=== PATIENT | male | born 1960 | race Hispanic/Latino ===

== ENCOUNTER 2017-04-24 08:39 | Inpatient (IN) | payer BC ==
[~2017-04-24] VITALS: Ht 157.5 cm; Wt 72.6 kg
[2017-04-24] MEDS ORDERED: SODIUM CHLORIDE 0.9% 1000ML 1,000 ML IV ONE (09:08)
[2017-04-24 09:30] LABS: BASOPHILS % (AUTO) 0.3 % (0.0-5.0); EOSINOPHILS % (AUTO) 0.1 % (0.0-8.0); HEMATOCRIT 37.2 % (42-54); LYMPHOCYTES % (AUTO) 13.8 % (21.0-51.0); MEAN CORPUSCULAR HEMOGLOBIN 31.1 pg (27.0-33.0); MEAN CORPUSCULAR HGB CONC 34.2 g/dL (32.0-36.0); MEAN CORPUSCULAR VOLUME 90.7 fL (79-99); MONOCYTES % (AUTO) 12.6 % (3.0-13.0); NEUTROPHILS % (AUTO) 73.2 % (40.0-77.0); PLATELET COUNT (AUTO) 407 K/uL (130-400); RED CELL DISTRIBUTION WIDTH 12.1 % (11.0-15.5); WHITE BLOOD COUNT (AUTO) 8.4 K/uL (4.8-10.8)
[2017-04-24] MEDS ORDERED: ONDANSETRON HCL 4 MG/2 ML VIAL ONE (09:32)
[2017-04-24] MEDS ORDERED: MORPHINE SULFATE 4 MG/1ML SYG ONE (09:33)
[2017-04-24 09:40] LABS: CREATININE 1.5 mg/dL (0.5-1.5); POTASSIUM 4.3 mmol/L (3.5-5.1)
[2017-04-24 09:44] LABS: ALBUMIN 2.8 g/dL (3.5-5.0); BILIRUBIN,TOTAL 0.6 mg/dL (0.2-1.0); TOTAL PROTEIN, SERUM 8.3 g/dL (6.0-8.3)
[2017-04-24] MEDS ORDERED: CLINDAMYCIN 600 MG/D5% WATER 50 ML IV ONE (09:47)
[2017-04-24 09:48] LABS: INR 1.09 (0.85-1.15); PARTIAL THROMBOPLASTIN TIME 28.9 SEC (26.3-35.5); PROTHROMBIN TIME 11.4 SEC (9.6-11.6)
[2017-04-24 09:53] LABS: CRP QUANTITATIVE 208.4 mg/L (0.00-9.0)
[2017-04-24] MEDS ORDERED: VANCOMYCIN 1GM+NS 250ML 250 ML IV ONE (13:49)
[2017-04-24] MEDS ORDERED: GUAIFENESIN-DM 200/20 MG 10 ML PO PRN (15:30)
[2017-04-24] MEDS: CLINDAMYCIN 600 MG/D5% WATER 50 ML IV SCH ×2 (15:30→23:24)
[2017-04-24] MEDS ORDERED: MORPHINE SULFATE 4 MG/1ML SYG IV PRN (15:30)
[2017-04-24] MEDS ORDERED: ZOLPIDEM TARTRATE 5 MG TAB PO PRN (15:30)
[2017-04-24] MEDS ORDERED: ONDANSETRON HCL 4 MG/2 ML VIAL IV PRN (15:30)
[2017-04-24] MEDS ORDERED: HYDRALAZINE HCL 20 MG/ML VIAL IV PRN (15:30)
[2017-04-24 17:02] VITALS: BP 142/94
[2017-04-24] MEDS ORDERED: METF500T6 PO (17:26)
[2017-04-24] MEDS: ACETAMINOPHEN 325 MG TAB PO PRN (17:37)
[2017-04-24 20:11] VITALS: BP 113/61
[2017-04-24] MEDS: FAMOTIDINE 20MG TAB 20 MG TAB PO SCH (20:58)
[2017-04-24] MEDS: INSULIN HUMULIN R 100 UNIT/ML 3ML SQ SCH (21:01)
[2017-04-24] MEDS: SODIUM CHLORIDE 0.9% 1000ML 1,000 ML IV SCH (23:24)
[2017-04-25 00:17] VITALS: BP 120/59
[2017-04-25 04:00] VITALS: BP 146/73
[2017-04-25] MEDS: ACETAMINOPHEN 325 MG TAB PO PRN ×2 (04:13→17:45)
[2017-04-25 05:48] LABS: BASOPHILS % (AUTO) 0.4 % (0.0-5.0); EOSINOPHILS % (AUTO) 0.3 % (0.0-8.0); HEMATOCRIT 35.7 % (42-54); LYMPHOCYTES % (AUTO) 12.3 % (21.0-51.0); MEAN CORPUSCULAR HEMOGLOBIN 31.3 pg (27.0-33.0); MEAN CORPUSCULAR HGB CONC 34.5 g/dL (32.0-36.0); MEAN CORPUSCULAR VOLUME 90.9 fL (79-99); MONOCYTES % (AUTO) 9.3 % (3.0-13.0); NEUTROPHILS % (AUTO) 77.7 % (40.0-77.0); PLATELET COUNT (AUTO) 383 K/uL (130-400); RED BLOOD CELL COUNT(AUTO) 3.93 MIL/uL (4.50-6.20); WHITE BLOOD COUNT (AUTO) 9.9 K/uL (4.8-10.8)
[2017-04-25 05:57] LABS: CREATININE 1.3 mg/dL (0.5-1.5); MAGNESIUM 1.8 mg/dL (1.80-2.40); PHOSPHORUS 3.5 mg/dL (2.5-4.9)
[2017-04-25] MEDS: INSULIN HUMULIN R 100 UNIT/ML 3ML SQ SCH ×4 (06:13→21:00)
[2017-04-25] MEDS: CLINDAMYCIN 600 MG/D5% WATER 50 ML IV SCH ×2 (06:49→14:42)
[2017-04-25 07:40] VITALS: BP 108/56
[2017-04-25] MEDS: FAMOTIDINE 20MG TAB 20 MG TAB PO SCH ×2 (08:25→21:15)
[2017-04-25] MEDS: ENOXAPARIN SODIUM 40 MG/0.4 ML SYRINGE SQ SCH (08:26)
[2017-04-25 11:23] VITALS: BP 103/63
[2017-04-25] MEDS: SODIUM CHLORIDE 0.9% 1000ML 1,000 ML IV SCH ×2 (12:13→18:45)
[2017-04-25 16:00] VITALS: BP 141/76
[2017-04-25] MEDS ORDERED: VANCOMYCIN PROTOCOL PER PHARMACY IV SCH (17:45)
[2017-04-25 20:00] VITALS: BP 128/95
[2017-04-25] MEDS: VANCOMYCIN 1GM+NS 250ML 250 ML IV SCH (21:16)
[2017-04-26] VITALS: BP 150/77
[2017-04-26 03:55] VITALS: BP 146/72
[2017-04-26] MEDS: SODIUM CHLORIDE 0.9% 1000ML 1,000 ML IV SCH ×2 (05:02→22:31)
[2017-04-26] MEDS: INSULIN HUMULIN R 100 UNIT/ML 3ML SQ SCH ×4 (06:12→22:43)
[2017-04-26 08:18] VITALS: BP 145/79
[2017-04-26] MEDS: FAMOTIDINE 20MG TAB 20 MG TAB PO SCH ×2 (08:22→22:30)
[2017-04-26] MEDS: ENOXAPARIN SODIUM 40 MG/0.4 ML SYRINGE SQ SCH (08:23)
[2017-04-26] MEDS: VANCOMYCIN 1GM+NS 250ML 250 ML IV SCH ×2 (08:23→22:34)
[2017-04-26 11:53] VITALS: BP 150/78
[2017-04-26 16:13] VITALS: BP 107/86
[2017-04-26 20:29] VITALS: BP 136/68
[2017-04-27 00:46] VITALS: BP 127/77
[2017-04-27] MEDS: SODIUM CHLORIDE 0.9% 1000ML 1,000 ML IV SCH ×2 (03:14→09:41)
[2017-04-27 04:19] VITALS: BP 118/62
[2017-04-27] MEDS: INSULIN HUMULIN R 100 UNIT/ML 3ML SQ SCH ×3 (05:46→18:18)
[2017-04-27 06:13] LABS: BASOPHILS % (AUTO) 0.7 % (0.0-5.0); EOSINOPHILS % (AUTO) 1.4 % (0.0-8.0); HEMATOCRIT 32.9 % (42-54); LYMPHOCYTES % (AUTO) 23.5 % (21.0-51.0); MEAN CORPUSCULAR HEMOGLOBIN 31.4 pg (27.0-33.0); MEAN CORPUSCULAR HGB CONC 34.9 g/dL (32.0-36.0); MEAN CORPUSCULAR VOLUME 90.2 fL (79-99); MONOCYTES % (AUTO) 12.1 % (3.0-13.0); NEUTROPHILS % (AUTO) 62.3 % (40.0-77.0); PLATELET COUNT (AUTO) 467 K/uL (130-400); RED BLOOD CELL COUNT(AUTO) 3.64 MIL/uL (4.50-6.20); RED CELL DISTRIBUTION WIDTH 12.1 % (11.0-15.5); WHITE BLOOD COUNT (AUTO) 7.6 K/uL (4.8-10.8)
[2017-04-27 06:19] LABS: ALBUMIN 2.2 g/dL (3.5-5.0); BILIRUBIN,TOTAL 0.3 mg/dL (0.2-1.0); TOTAL PROTEIN, SERUM 6.7 g/dL (6.0-8.3)
[2017-04-27 07:54] VITALS: BP 129/65
[2017-04-27 09:05] LABS: CRP QUANTITATIVE 178.4 mg/L (0.00-9.0)
[2017-04-27] MEDS: FAMOTIDINE 20MG TAB 20 MG TAB PO SCH ×2 (09:39→21:00)
[2017-04-27] MEDS: VANCOMYCIN 1GM+NS 250ML 250 ML IV SCH (09:40)
[2017-04-27] MEDS: ENOXAPARIN SODIUM 40 MG/0.4 ML SYRINGE SQ SCH (09:40)
[2017-04-27 12:00] VITALS: BP 123/74
[2017-04-27] MEDS ORDERED: CEFAZOLIN 1GM / D5W 50ML 50 ML IV SCH (14:30)
[2017-04-27] MEDS: CEFAZOLIN SODIUM 1 GM VIAL IVP SCH ×2 (15:27→22:00)
[2017-04-27 16:00] VITALS: BP 127/67
[2017-04-27 20:30] VITALS: BP 120/69
[2017-04-28] VITALS (7 sets, daily range): BP systolic 114–148; BP diastolic 65–76
[2017-04-28] MEDS: INSULIN HUMULIN R 100 UNIT/ML 3ML SQ SCH ×5 (06:29→20:09)
[2017-04-28] MEDS: CEFAZOLIN SODIUM 1 GM VIAL IVP SCH ×3 (06:30→21:47)
[2017-04-28] MEDS: SODIUM CHLORIDE 0.9% 1000ML 1,000 ML IV SCH ×3 (06:31→17:24)
[2017-04-28] MEDS: FAMOTIDINE 20MG TAB 20 MG TAB PO SCH ×2 (08:48→20:01)
[2017-04-28] MEDS: ENOXAPARIN SODIUM 40 MG/0.4 ML SYRINGE SQ SCH (08:49)
[2017-04-29] VITALS (7 sets, daily range): BP systolic 127–158; BP diastolic 61–94
[2017-04-29] MEDS: SODIUM CHLORIDE 0.9% 1000ML 1,000 ML IV SCH ×3 (02:45→22:45)
[2017-04-29] MEDS: CEFAZOLIN SODIUM 1 GM VIAL IVP SCH ×3 (06:38→22:15)
[2017-04-29] MEDS: INSULIN HUMULIN R 100 UNIT/ML 3ML SQ SCH ×4 (06:39→22:24)
[2017-04-29] MEDS: FAMOTIDINE 20MG TAB 20 MG TAB PO SCH ×2 (08:35→20:24)
[2017-04-29] MEDS: ENOXAPARIN SODIUM 40 MG/0.4 ML SYRINGE SQ SCH (08:35)
[2017-04-30] VITALS (7 sets, daily range): BP systolic 107–142; BP diastolic 56–81
[2017-04-30] MEDS: CEFAZOLIN SODIUM 1 GM VIAL IVP SCH ×3 (05:35→21:33)
[2017-04-30 05:44] LABS: HEMATOCRIT 31.8 % (42-54); MEAN CORPUSCULAR HEMOGLOBIN 32.1 pg (27.0-33.0); MEAN CORPUSCULAR HGB CONC 35.3 g/dL (32.0-36.0); MEAN CORPUSCULAR VOLUME 90.9 fL (79-99); PLATELET COUNT (AUTO) 587 K/uL (130-400); RED CELL DISTRIBUTION WIDTH 12.2 % (11.0-15.5); WHITE BLOOD COUNT (AUTO) 8.9 K/uL (4.8-10.8)
[2017-04-30 05:53] LABS: ALBUMIN 2.4 g/dL (3.5-5.0); BILIRUBIN,TOTAL 0.3 mg/dL (0.2-1.0); POTASSIUM 4.7 mmol/L (3.5-5.1); TOTAL PROTEIN, SERUM 7.3 g/dL (6.0-8.3)
[2017-04-30] MEDS: INSULIN HUMULIN R 100 UNIT/ML 3ML SQ SCH ×4 (06:10→20:58)
[2017-04-30 06:38] LABS: INR 1.02 (0.85-1.15); PARTIAL THROMBOPLASTIN TIME 27.5 SEC (26.3-35.5); PROTHROMBIN TIME 10.7 SEC (9.6-11.6)
[2017-04-30] MEDS: FAMOTIDINE 20MG TAB 20 MG TAB PO SCH ×2 (09:15→19:29)
[2017-04-30] MEDS: ENOXAPARIN SODIUM 40 MG/0.4 ML SYRINGE SQ SCH (09:16)
[2017-05-01 03:26] VITALS: BP 123/75
[2017-05-01] MEDS: INSULIN HUMULIN R 100 UNIT/ML 3ML SQ SCH ×4 (06:37→20:34)
[2017-05-01] MEDS: CEFAZOLIN SODIUM 1 GM VIAL IVP SCH ×3 (06:37→22:49)
[2017-05-01 07:32] VITALS: BP 128/75
[2017-05-01] MEDS: ENOXAPARIN SODIUM 40 MG/0.4 ML SYRINGE SQ SCH (08:46)
[2017-05-01] MEDS: FAMOTIDINE 20MG TAB 20 MG TAB PO SCH ×2 (08:46→20:36)
[2017-05-01 11:07] VITALS: BP 112/68
[2017-05-01 16:19] VITALS: BP 115/70
[2017-05-01 20:00] VITALS: BP 118/71
[2017-05-02] VITALS: BP 138/78
[2017-05-02 04:00] VITALS: BP 124/77
[2017-05-02] MEDS: INSULIN HUMULIN R 100 UNIT/ML 3ML SQ SCH ×4 (05:52→21:09)
[2017-05-02 06:16] LABS: PARTIAL THROMBOPLASTIN TIME 28.3 SEC (26.3-35.5); PROTHROMBIN TIME 10.5 SEC (9.6-11.6)
[2017-05-02] MEDS: CEFAZOLIN SODIUM 1 GM VIAL IVP SCH ×3 (06:29→21:03)
[2017-05-02 08:34] VITALS: BP 129/73
[2017-05-02] MEDS: ENOXAPARIN SODIUM 40 MG/0.4 ML SYRINGE SQ SCH (09:00)
[2017-05-02] MEDS: FAMOTIDINE 20MG TAB 20 MG TAB PO SCH ×2 (10:45→20:26)
[2017-05-02 11:50] VITALS: BP 117/78
[2017-05-02 16:39] VITALS: BP 133/75
[2017-05-02 20:00] VITALS: BP 122/58
[2017-05-02] MEDS: LACTULOSE 20 GM/30 ML UDCUP PO PRN (20:38)
[2017-05-03] VITALS: BP 144/82
[2017-05-03 04:00] VITALS: BP 134/66
[2017-05-03] MEDS: CEFAZOLIN SODIUM 1 GM VIAL IVP SCH ×3 (05:33→20:58)
[2017-05-03] MEDS: INSULIN HUMULIN R 100 UNIT/ML 3ML SQ SCH ×4 (05:34→21:16)
[2017-05-03 08:00] VITALS: BP 134/82
[2017-05-03] MEDS: FAMOTIDINE 20MG TAB 20 MG TAB PO SCH ×2 (09:48→20:58)
[2017-05-03] MEDS: ENOXAPARIN SODIUM 40 MG/0.4 ML SYRINGE SQ SCH (09:48)
[2017-05-03 11:20] VITALS: BP 127/67
[2017-05-03 16:11] VITALS: BP 116/74
[2017-05-03 20:10] VITALS: BP 130/55
[2017-05-03] MEDS: LACTULOSE 20 GM/30 ML UDCUP PO PRN (21:12)
[2017-05-04 00:48] VITALS: BP 106/63
[2017-05-04 04:28] VITALS: BP 114/60
[2017-05-04] MEDS: INSULIN HUMULIN R 100 UNIT/ML 3ML SQ SCH ×3 (05:41→16:30)
[2017-05-04] MEDS: CEFAZOLIN SODIUM 1 GM VIAL IVP SCH ×2 (05:41→14:26)
[2017-05-04 06:08] LABS: HEMATOCRIT 32.5 % (42-54); MEAN CORPUSCULAR HEMOGLOBIN 31.3 pg (27.0-33.0); PLATELET COUNT (AUTO) 526 K/uL (130-400); RED BLOOD CELL COUNT(AUTO) 3.54 MIL/uL (4.50-6.20); RED CELL DISTRIBUTION WIDTH 12.4 % (11.0-15.5); WHITE BLOOD COUNT (AUTO) 8.7 K/uL (4.8-10.8)
[2017-05-04 06:10] LABS: POTASSIUM 4.1 mmol/L (3.5-5.1)
[2017-05-04 07:30] VITALS: BP 124/73
[2017-05-04] MEDS: FAMOTIDINE 20MG TAB 20 MG TAB PO SCH (09:14)
[2017-05-04] MEDS: ENOXAPARIN SODIUM 40 MG/0.4 ML SYRINGE SQ SCH (09:18)
[2017-05-04 11:00] VITALS: BP 122/72
[2017-05-04 16:00] VITALS: BP 137/85
[2017-05-07] MEDS ORDERED: CEFTRIAXONE SODIUM 1 GM ONE (08:43)
== END 2017-05-04 20:50 | disposition home or self-care (01) | DRG 872 ==
LOC: EDH 08:39 → 4BH 15:23
PROVIDERS: ADMIT Family Medicine; ATTEND Family Medicine
PROC: 02H633Z Insertion of Infusion Device into Right Atrium, Percutaneous Approach (ICD-10-PCS; principal; 2017-05-02)
DX: A41.01 Sepsis due to Methicillin susceptible Staphylococcus aureus (principal); E11.69 Type 2 diabetes mellitus with other specified complication; E87.1 Hypo-osmolality and hyponatremia; E44.1 Mild protein-calorie malnutrition; L02.612 Cutaneous abscess of left foot; E11.9 Type 2 diabetes mellitus without complications; M86.9 Osteomyelitis, unspecified; L03.114 Cellulitis of left upper limb; M25.432 Effusion, left wrist; B95.61 Methicillin susceptible Staphylococcus aureus infection as the cause of diseases classified elsewhere; B96.89 Other specified bacterial agents as the cause of diseases classified elsewhere; I10 Essential (primary) hypertension; S61.519A Laceration without foreign body of unspecified wrist, initial encounter; Z79.4 Long term (current) use of insulin; Z82.49 Family history of ischemic heart disease and other diseases of the circulatory system; Z89.412 Acquired absence of left great toe; Z83.3 Family history of diabetes mellitus; Z68.29 Body mass index [BMI] 29.0-29.9, adult; Z79.84 Long term (current) use of oral hypoglycemic drugs; Z28.21 Immunization not carried out because of patient refusal
CPT/HCPCS: 36415; 71045; 73200; 80048; 80053; 80202; 82948; 83735; 84100; 85025; 85027; 85610; 85730; 86141; 87040; 87186; A4218; C1894; J0690; J1650; J1815; J2270; J2405; J3370; J3490; J7030

== ENCOUNTER → 2020-07-21 | Outpatient (CLI) | payer OTHER ==
[~2020-07-21] MED LIST: METF-444 PO
== END | disposition home or self-care (01) ==
LOC: OIH 14:58
PROVIDERS: ATTEND Family Medicine
DX: M77.32 Calcaneal spur, left foot (principal); Z89.422 Acquired absence of other left toe(s)
CPT/HCPCS: 73620

== ENCOUNTER 2020-12-29 10:34 | Inpatient (IN) | payer OTHER ==
[~2020-12-29] VITALS: Ht 157.5 cm; Wt 59.6 kg
[2020-12-29] MEDS ORDERED: 0.9%NACL 1000ML 1,000 ML IV ONE (12:00)
[2020-12-29 12:02] LABS: BASOPHILS % (AUTO) 0.4 % (0.0-5.0); EOSINOPHILS % (AUTO) 0.9 % (0.0-8.0); HEMATOCRIT 33.7 % (42-54); LYMPHOCYTES % (AUTO) 6.5 % (21.0-51.0); MEAN CORPUSCULAR HGB CONC 32.9 g/dL (32.0-36.0); MEAN CORPUSCULAR VOLUME 94.1 fL (79-99); MONOCYTES % (AUTO) 3.7 % (3.0-13.0); NEUTROPHILS % (AUTO) 87.3 % (40.0-77.0); PLATELET COUNT (AUTO) 541 K/uL (130-400); RED BLOOD CELL COUNT(AUTO) 3.58 MIL/uL (4.50-6.20); RED CELL DISTRIBUTION WIDTH 11.9 % (11.0-15.5); WHITE BLOOD COUNT (AUTO) 21.7 K/uL (4.8-10.8)
[2020-12-29 13:02] LABS: CREATININE 1.3 mg/dL (0.5-1.5); POTASSIUM 4.5 mmol/L (3.5-5.1)
[2020-12-29 13:07] LABS: ALBUMIN 2.6 g/dL (3.5-5.0); BILIRUBIN,TOTAL 0.5 mg/dL (0.2-1.0); CRP QUANTITATIVE 168.3 mg/L (0.00-9.0); TOTAL PROTEIN, SERUM 7.9 g/dL (6.0-8.3)
[2020-12-29 13:11] LABS: ERYTHROCYTE SEDIMENTATION RATE 98 MM/HR (0-20)
[2020-12-29] MEDS: ZOSYN 3.375GM +NS 50ML IV SCH ×2 (13:14→21:27)
[2020-12-29] MEDS ORDERED: ACETAMINOPHEN WITH CODEINE 1 TAB TAB PO PRN ×2 (15:30)
[2020-12-29] MEDS ORDERED: ACETAMINOPHEN 325 MG TAB PO PRN ×2 (15:30)
[2020-12-29] MEDS ORDERED: ONDANSETRON 4MG INJ IV PRN (15:30)
[2020-12-29] MEDS ORDERED: DIPHENHYDRAMINE HCL 25 MG CAPSULE PO PRN (15:30)
[2020-12-29] MEDS ORDERED: VANCOMYCIN PROTOCOL PER PHARMACY IV PRN (15:30)
[2020-12-29 15:44] LABS: HEMOGLOBIN A1C 8.2 % (4.0-6.0)
[2020-12-29] MEDS: FAMOTIDINE 20MG VIAL IV SCH (15:52)
[2020-12-29] MEDS: 0.9%NACL 1000ML 1,000 ML IV SCH (15:52)
[2020-12-29] MEDS: VANCOMYCIN 1G/250ML KIT 250 ML IV SCH (16:46)
[2020-12-29] MEDS ORDERED: 0.9%NACL 50ML 50 ML IV ONE (21:03)
[2020-12-29] MEDS: ZOSYN 3.375GM+NS 50ML 50 ML IV SCH (21:06)
[2020-12-29 22:10] VITALS: BP 132/78
[2020-12-30] VITALS (19 sets, daily range): BP systolic 93–152; BP diastolic 53–77
[2020-12-30] MEDS: 0.9%NACL 1000ML 1,000 ML IV SCH ×3 (01:30→21:10)
[2020-12-30] MEDS: ZOSYN 3.375GM+NS 50ML 50 ML IV SCH ×3 (03:49→21:09)
[2020-12-30 04:12] LABS: BASOPHILS % (AUTO) 0.4 % (0.0-5.0); EOSINOPHILS % (AUTO) 1.5 % (0.0-8.0); HEMATOCRIT 31.1 % (42-54); LYMPHOCYTES % (AUTO) 7.4 % (21.0-51.0); MEAN CORPUSCULAR HEMOGLOBIN 30.2 pg (27.0-33.0); MEAN CORPUSCULAR HGB CONC 32.8 g/dL (32.0-36.0); MONOCYTES % (AUTO) 3.8 % (3.0-13.0); NEUTROPHILS % (AUTO) 85.8 % (40.0-77.0); PLATELET COUNT (AUTO) 499 K/uL (130-400); RED BLOOD CELL COUNT(AUTO) 3.38 MIL/uL (4.50-6.20)
[2020-12-30 04:21] LABS: ALBUMIN 2.1 g/dL (3.5-5.0); BILIRUBIN,TOTAL 0.5 mg/dL (0.2-1.0); CREATININE 0.9 mg/dL (0.5-1.5); POTASSIUM 4.2 mmol/L (3.5-5.1); TOTAL PROTEIN, SERUM 6.9 g/dL (6.0-8.3)
[2020-12-30] MEDS: ENOXAPARIN SODIUM 30 MG/0.3 ML SQ SCH (09:00)
[2020-12-30] MEDS: FAMOTIDINE 20MG VIAL IV SCH (09:13)
[2020-12-30] MEDS ORDERED: 0.9% NACL 250ML 250 ML ONE (16:01)
[2020-12-30] MEDS: VANCOMYCIN 1G/250ML KIT 250 ML IV SCH (16:04)
[2020-12-30 16:17] LABS: CREATINE KINASE, TOTAL 20 U/L (21-232); MYOGLOBIN 35 ng/mL (10-92)
[2020-12-30] MEDS ORDERED: DEXAMETHASONE SOD PHOSPHATE 10MG/ML 1ML VIAL ONE ×2 (17:34→19:11)
[2020-12-30] MEDS ORDERED: SUCCINYLCHOLINE CHLORIDE 20 MG/ML 10 ML VIAL ONE (17:34)
[2020-12-30] MEDS ORDERED: MIDAZOLAM HCL 1 MG/ML 2ML VIAL ONE (17:34)
[2020-12-30] MEDS ORDERED: LIDOCAINE PF 100MG/5ML (2%) SYRINGE 5ML ONE (17:34)
[2020-12-30] MEDS ORDERED: GLYCOPYRROLATE 1 MG/5 ML SYRINGE ONE (17:34)
[2020-12-30] MEDS ORDERED: FENTANYL CITRATE PF 50 MCG/1 ML 2ML VIAL ONE (17:35)
[2020-12-30] MEDS ORDERED: ONDANSETRON 4MG INJ ONE (17:35)
[2020-12-30] MEDS ORDERED: PROPOFOL 10 MG/ML 20ML VIAL IV ONE (17:35)
[2020-12-30] MEDS ORDERED: ROCURONIUM 10MG/1ML SYR 10 MG/ML ML ONE (17:35)
[2020-12-30] MEDS ORDERED: NEOSTIGMINE 5MG/5ML SYR IV ONE (17:35)
[2020-12-30] MEDS ORDERED: KETAMINE 50MG/ML SYRINGE 50 MG/ML DISP.SYRIN IV ONE (17:43)
[2020-12-30] MEDS ORDERED: EPHEDRINE SULFATE 50 MG/ML AMPULE ONE (18:20)
[2020-12-30] MEDS ORDERED: DEXAMETHASONE SOD PHOSPHATE 4 MG/ML 1ML VIAL ONE (19:11)
[2020-12-30] MEDS ORDERED: ROPIVACAINE 0.5% 5MG/ML 30ML IJ ONE (19:13)
[2020-12-30] MEDS: INSULIN HUMULIN R 100 UNIT/ML 3ML SQ SCH ×2 (19:45→21:00)
[2020-12-31] VITALS (8 sets, daily range): BP systolic 90–113; BP diastolic 47–69
[2020-12-31 04:59] LABS: CREATININE 1.3 mg/dL (0.5-1.5); CRP QUANTITATIVE 164.1 mg/L (0.00-9.0); POTASSIUM 5.3 mmol/L (3.5-5.1)
[2020-12-31] MEDS: INSULIN HUMULIN R 100 UNIT/ML 3ML SQ SCH ×5 (05:40→19:59)
[2020-12-31] MEDS: 0.9%NACL 1000ML 1,000 ML IV SCH (05:40)
[2020-12-31] MEDS: ZOSYN 3.375GM+NS 50ML 50 ML IV SCH ×3 (05:40→19:45)
[2020-12-31 05:41] LABS: ERYTHROCYTE SEDIMENTATION RATE 120 MM/HR (0-20)
[2020-12-31 05:43] LABS: BASOPHILS % (AUTO) 0.1 % (0.0-5.0); HEMATOCRIT 27.5 % (42-54); MEAN CORPUSCULAR HEMOGLOBIN 30.8 pg (27.0-33.0); MEAN CORPUSCULAR HGB CONC 31.3 g/dL (32.0-36.0); MEAN CORPUSCULAR VOLUME 98.6 fL (79-99); MONOCYTES % (AUTO) 0.4 % (3.0-13.0); NEUTROPHILS % (AUTO) 94.5 % (40.0-77.0); PLATELET COUNT (AUTO) 451 K/uL (130-400); RED BLOOD CELL COUNT(AUTO) 2.79 MIL/uL (4.50-6.20); RED CELL DISTRIBUTION WIDTH 12.2 % (11.0-15.5); WHITE BLOOD COUNT (AUTO) 20.7 K/uL (4.8-10.8)
[2020-12-31 08:26] LABS: RETICULOCYTE % (AUTO) 1.64 % (0.42-2.23)
[2020-12-31] MEDS ORDERED: COMPOUND IV MISC 1 EACH IVSOLN MISC PRN (08:30)
[2020-12-31] MEDS ORDERED: EPOETIN ALFA-EPBX (NON-ESRD) 10,000 UNIT/ML VIAL SQ SCH (08:30)
[2020-12-31] MEDS: FAMOTIDINE 20MG VIAL IV SCH (08:37)
[2020-12-31] MEDS: GABAPENTIN 300 MG CAPSULE PO SCH ×2 (08:37→19:45)
[2020-12-31] MEDS: ENOXAPARIN SODIUM 30 MG/0.3 ML SQ SCH (08:37)
[2020-12-31] MEDS: IRON SUCROSE COMPLEX 300 MG in 0.9%NACL 50ML 50 ML IV SCH (09:18)
[2020-12-31] MEDS ORDERED: 0.9%NACL 1000ML 1,000 ML IV SCH (10:00)
[2020-12-31] MEDS: VANCOMYCIN 1G/250ML KIT 250 ML IV SCH (16:09)
[2020-12-31 17:41] LABS: CREATININE 1.1 mg/dL (0.5-1.5)
[2020-12-31] MEDS ORDERED: METFORMIN HCL 500 MG TABLET ONE (19:35)
[2020-12-31] MEDS: METFORMIN HCL 500 MG TABLET PO SCH (19:45)
[2021-01-01 03:31] VITALS: BP 100/57
[2021-01-01 05:09] LABS: BASOPHILS % (AUTO) 0.1 % (0.0-5.0); HEMATOCRIT 22.7 % (42-54); MEAN CORPUSCULAR HEMOGLOBIN 30.6 pg (27.0-33.0); MEAN CORPUSCULAR HGB CONC 32.6 g/dL (32.0-36.0); MEAN CORPUSCULAR VOLUME 93.8 fL (79-99); NEUTROPHILS % (AUTO) 89.9 % (40.0-77.0); PLATELET COUNT (AUTO) 390 K/uL (130-400); RED BLOOD CELL COUNT(AUTO) 2.42 MIL/uL (4.50-6.20); RED CELL DISTRIBUTION WIDTH 12.3 % (11.0-15.5); WHITE BLOOD COUNT (AUTO) 21.5 K/uL (4.8-10.8)
[2021-01-01 05:21] LABS: CREATININE 1.2 mg/dL (0.5-1.5); POTASSIUM 3.9 mmol/L (3.5-5.1)
[2021-01-01] MEDS: ZOSYN 3.375GM+NS 50ML 50 ML IV SCH ×3 (05:26→20:18)
[2021-01-01] MEDS: INSULIN HUMULIN R 100 UNIT/ML 3ML SQ SCH ×4 (06:22→20:19)
[2021-01-01 07:10] VITALS: BP 105/52
[2021-01-01] MEDS: GLIPIZIDE 5 MG TABLET PO SCH ×3 (09:00→20:17)
[2021-01-01] MEDS ORDERED: LACTULOSE 20 GM/30 ML UDCUP PO ONE (09:00)
[2021-01-01] MEDS: GABAPENTIN 300 MG CAPSULE PO SCH ×2 (09:12→20:18)
[2021-01-01] MEDS: IRON SUCROSE COMPLEX 300 MG in 0.9%NACL 50ML 50 ML IV SCH (09:13)
[2021-01-01] MEDS: METFORMIN HCL 500 MG TABLET PO SCH ×3 (09:13→16:44)
[2021-01-01] MEDS: FAMOTIDINE 20MG VIAL IV SCH (09:13)
[2021-01-01] MEDS: ENOXAPARIN SODIUM 30 MG/0.3 ML SQ SCH (09:14)
[2021-01-01 11:10] VITALS: BP 85/55
[2021-01-01 14:43] LABS: HEMATOCRIT 24.2 % (42-54)
[2021-01-01 16:00] VITALS: BP 89/51
[2021-01-01] MEDS: VANCOMYCIN 1G/250ML KIT 250 ML IV SCH (16:44)
[2021-01-01 20:16] VITALS: BP 102/52
[2021-01-01 21:00] LABS: HEMATOCRIT 23.8 % (42-54)
[2021-01-01 23:40] VITALS: BP 108/61
[2021-01-02 03:17] VITALS: BP 112/65
[2021-01-02 04:52] LABS: BASOPHILS % (AUTO) 0.2 % (0.0-5.0); EOSINOPHILS % (AUTO) 0.3 % (0.0-8.0); HEMATOCRIT 24.1 % (42-54); LYMPHOCYTES % (AUTO) 13.5 % (21.0-51.0); MEAN CORPUSCULAR HEMOGLOBIN 30.9 pg (27.0-33.0); MEAN CORPUSCULAR HGB CONC 31.5 g/dL (32.0-36.0); MONOCYTES % (AUTO) 4.2 % (3.0-13.0); NEUTROPHILS % (AUTO) 80.9 % (40.0-77.0); PLATELET COUNT (AUTO) 369 K/uL (130-400); RED BLOOD CELL COUNT(AUTO) 2.46 MIL/uL (4.50-6.20); RED CELL DISTRIBUTION WIDTH 12.8 % (11.0-15.5); WHITE BLOOD COUNT (AUTO) 13.1 K/uL (4.8-10.8)
[2021-01-02 05:08] LABS: % IRON SATURATION 124.5 % (30-44)
[2021-01-02 05:17] LABS: ALBUMIN 1.9 g/dL (3.5-5.0); BILIRUBIN,TOTAL 0.2 mg/dL (0.2-1.0); CREATININE 0.9 mg/dL (0.5-1.5); POTASSIUM 4.3 mmol/L (3.5-5.1); THYROID STIMULATING HORMONE 0.71 uIU/mL (0.36-3.74); TOTAL PROTEIN, SERUM 5.2 g/dL (6.0-8.3)
[2021-01-02] MEDS: ZOSYN 3.375GM+NS 50ML 50 ML IV SCH ×3 (05:39→20:45)
[2021-01-02] MEDS: VANCOMYCIN 750MG VIAL IVPB SCH ×2 (05:40→18:49)
[2021-01-02] MEDS: 0.9% NACL 250ML 250 ML IV SCH ×2 (05:40→18:49)
[2021-01-02] MEDS: INSULIN HUMULIN R 100 UNIT/ML 3ML SQ SCH ×4 (06:07→20:06)
[2021-01-02 08:09] VITALS: BP 106/61
[2021-01-02] MEDS: GABAPENTIN 300 MG CAPSULE PO SCH ×2 (08:47→20:45)
[2021-01-02] MEDS: METFORMIN HCL 500 MG TABLET PO SCH ×2 (08:47→20:45)
[2021-01-02] MEDS: GLIPIZIDE 5 MG TABLET PO SCH (08:48)
[2021-01-02] MEDS: FAMOTIDINE 20MG VIAL IV SCH (08:48)
[2021-01-02] MEDS: ENOXAPARIN SODIUM 30 MG/0.3 ML SQ SCH (08:49)
[2021-01-02] MEDS ORDERED: EPOETIN ALFA-EPBX (NON-ESRD) 10,000 UNIT/ML VIAL SQ SCH (09:30)
[2021-01-02 12:00] VITALS: BP 111/55
[2021-01-02] MEDS: ZINC SULFATE 220 CAPSULE PO SCH (12:51)
[2021-01-02] MEDS: ASCORBIC ACID 500 MG TAB PO SCH (12:51)
[2021-01-02] MEDS: IRON SUCROSE COMPLEX 300 MG in 0.9%NACL 50ML 50 ML IV SCH (12:51)
[2021-01-02 13:53] LABS: HEMATOCRIT 31.1 % (42-54)
[2021-01-02 16:00] VITALS: BP 125/71
[2021-01-02 20:08] VITALS: BP 117/67
[2021-01-02] MEDS: FAMOTIDINE 20MG TAB PO SCH (20:45)
[2021-01-02 20:47] LABS: HEMATOCRIT 33.2 % (42-54)
[2021-01-03 00:12] VITALS: BP 129/70
[2021-01-03 04:12] VITALS: BP 130/72
[2021-01-03] MEDS: ZOSYN 3.375GM+NS 50ML 50 ML IV SCH (04:19)
[2021-01-03] MEDS: INSULIN HUMULIN R 100 UNIT/ML 3ML SQ SCH ×4 (05:14→20:16)
[2021-01-03 05:18] LABS: HEMATOCRIT 27.5 % (42-54)
[2021-01-03 05:35] LABS: ALBUMIN 2.1 g/dL (3.5-5.0); BILIRUBIN,TOTAL 0.3 mg/dL (0.2-1.0); CREATININE 0.9 mg/dL (0.5-1.5); POTASSIUM 3.7 mmol/L (3.5-5.1); TOTAL PROTEIN, SERUM 5.8 g/dL (6.0-8.3)
[2021-01-03] MEDS: VANCOMYCIN 750MG VIAL IVPB SCH (06:17)
[2021-01-03] MEDS: 0.9% NACL 250ML 250 ML IV SCH (06:17)
[2021-01-03 09:42] VITALS: BP 125/79
[2021-01-03] MEDS: METFORMIN HCL 500 MG TABLET PO SCH ×2 (09:59→19:29)
[2021-01-03] MEDS: ENOXAPARIN SODIUM 30 MG/0.3 ML SQ SCH (09:59)
[2021-01-03] MEDS: ZINC SULFATE 220 CAPSULE PO SCH (09:59)
[2021-01-03] MEDS: ASCORBIC ACID 500 MG TAB PO SCH (09:59)
[2021-01-03] MEDS: FAMOTIDINE 20MG TAB PO SCH ×2 (09:59→19:29)
[2021-01-03] MEDS: GABAPENTIN 300 MG CAPSULE PO SCH ×2 (09:59→19:29)
[2021-01-03 12:00] VITALS: BP 129/68
[2021-01-03 18:50] VITALS: BP 133/67
[2021-01-03 20:08] VITALS: BP 118/72
[2021-01-04 00:08] VITALS: BP 120/68
[2021-01-04 04:08] VITALS: BP 113/63
[2021-01-04] MEDS: INSULIN HUMULIN R 100 UNIT/ML 3ML SQ SCH ×4 (05:31→21:14)
[2021-01-04 05:39] LABS: ALBUMIN 2.1 g/dL (3.5-5.0); BILIRUBIN,TOTAL 0.3 mg/dL (0.2-1.0); CREATININE 0.8 mg/dL (0.5-1.5); POTASSIUM 4.1 mmol/L (3.5-5.1); TOTAL PROTEIN, SERUM 5.7 g/dL (6.0-8.3)
[2021-01-04 07:10] VITALS: BP 132/66
[2021-01-04] MEDS: ZINC SULFATE 220 CAPSULE PO SCH (09:10)
[2021-01-04] MEDS: ASCORBIC ACID 500 MG TAB PO SCH (09:11)
[2021-01-04] MEDS: GABAPENTIN 300 MG CAPSULE PO SCH ×2 (09:11→20:45)
[2021-01-04] MEDS: METFORMIN HCL 500 MG TABLET PO SCH ×2 (09:11→20:45)
[2021-01-04] MEDS: FAMOTIDINE 20MG TAB PO SCH ×2 (09:11→20:45)
[2021-01-04] MEDS: ENOXAPARIN SODIUM 30 MG/0.3 ML SQ SCH (09:15)
[2021-01-04 11:10] VITALS: BP 131/68
[2021-01-04 15:15] VITALS: BP 116/65
[2021-01-04 20:12] VITALS: BP 120/67
[2021-01-05] VITALS (7 sets, daily range): BP systolic 110–136; BP diastolic 48–75
[2021-01-05 04:54] LABS: BASOPHILS % (AUTO) 0.3 % (0.0-5.0); EOSINOPHILS % (AUTO) 1.2 % (0.0-8.0); HEMATOCRIT 26.4 % (42-54); LYMPHOCYTES % (AUTO) 15.2 % (21.0-51.0); MEAN CORPUSCULAR HEMOGLOBIN 30.2 pg (27.0-33.0); MEAN CORPUSCULAR HGB CONC 32.6 g/dL (32.0-36.0); MEAN CORPUSCULAR VOLUME 92.6 fL (79-99); NEUTROPHILS % (AUTO) 77.4 % (40.0-77.0); PLATELET COUNT (AUTO) 315 K/uL (130-400); RED BLOOD CELL COUNT(AUTO) 2.85 MIL/uL (4.50-6.20); RED CELL DISTRIBUTION WIDTH 14.4 % (11.0-15.5); WHITE BLOOD COUNT (AUTO) 14.9 K/uL (4.8-10.8)
[2021-01-05 05:13] LABS: CREATININE 0.9 mg/dL (0.5-1.5)
[2021-01-05] MEDS: INSULIN HUMULIN R 100 UNIT/ML 3ML SQ SCH ×4 (05:53→21:00)
[2021-01-05] MEDS: METFORMIN HCL 500 MG TABLET PO SCH ×2 (09:39→21:23)
[2021-01-05] MEDS: ENOXAPARIN SODIUM 30 MG/0.3 ML SQ SCH (09:39)
[2021-01-05] MEDS: FAMOTIDINE 20MG TAB PO SCH ×2 (09:39→21:22)
[2021-01-05] MEDS: GABAPENTIN 300 MG CAPSULE PO SCH ×2 (09:40→21:22)
[2021-01-05] MEDS: ZINC SULFATE 220 CAPSULE PO SCH (09:40)
[2021-01-05] MEDS: ASCORBIC ACID 500 MG TAB PO SCH (09:40)
[2021-01-05] MEDS ORDERED: METF-446 PO (15:42)
[2021-01-06 04:00] VITALS: BP 115/67
[2021-01-06 05:29] LABS: BASOPHILS % (AUTO) 0.3 % (0.0-5.0); EOSINOPHILS % (AUTO) 1.6 % (0.0-8.0); HEMATOCRIT 28.5 % (42-54); LYMPHOCYTES % (AUTO) 15.5 % (21.0-51.0); MEAN CORPUSCULAR HEMOGLOBIN 30.3 pg (27.0-33.0); MEAN CORPUSCULAR HGB CONC 31.9 g/dL (32.0-36.0); MONOCYTES % (AUTO) 5.7 % (3.0-13.0); NEUTROPHILS % (AUTO) 75.9 % (40.0-77.0); PLATELET COUNT (AUTO) 308 K/uL (130-400); WHITE BLOOD COUNT (AUTO) 12.3 K/uL (4.8-10.8)
[2021-01-06 05:38] LABS: POTASSIUM 4.3 mmol/L (3.5-5.1)
[2021-01-06] MEDS: INSULIN HUMULIN R 100 UNIT/ML 3ML SQ SCH (06:39)
[2021-01-06 07:53] VITALS: BP 114/68
[2021-01-06] MEDS: FAMOTIDINE 20MG TAB PO SCH (09:38)
[2021-01-06] MEDS: METFORMIN HCL 500 MG TABLET PO SCH (09:38)
[2021-01-06] MEDS: GABAPENTIN 300 MG CAPSULE PO SCH (09:38)
[2021-01-06] MEDS: ASCORBIC ACID 500 MG TAB PO SCH (09:38)
[2021-01-06] MEDS: ZINC SULFATE 220 CAPSULE PO SCH (09:38)
[2021-01-06] MEDS: ENOXAPARIN SODIUM 30 MG/0.3 ML SQ SCH (09:42)
[2021-01-06 11:15] VITALS: BP 106/61
[2021-01-06 15:05] VITALS: BP 122/69
== END 2021-01-06 19:00 | disposition home or self-care (01) | DRG 853 ==
LOC: EDH 10:34 → EDHIP 10:35 → 4AH 21:55 → 3AH 12-30 15:40
PROVIDERS: ADMIT Hospitalist; ATTEND Hospitalist
PROC: 0Y6H0Z3 Detachment at Right Lower Leg, Low, Open Approach (ICD-10-PCS; principal; 2020-12-30 17:35)
PROC: 30233N1 Transfusion of Nonautologous Red Blood Cells into Peripheral Vein, Percutaneous Approach (ICD-10-PCS; 2021-01-02)
DX: A41.9 Sepsis, unspecified organism (principal); A48.0 Gas gangrene; M72.6 Necrotizing fasciitis; E43 Unspecified severe protein-calorie malnutrition; E11.52 Type 2 diabetes mellitus with diabetic peripheral angiopathy with gangrene; E87.1 Hypo-osmolality and hyponatremia; D62 Acute posthemorrhagic anemia; E87.0 Hyperosmolality and hypernatremia; K92.2 Gastrointestinal hemorrhage, unspecified; M67.40 Ganglion, unspecified site; Z20.822 Contact with and (suspected) exposure to COVID-19; E86.0 Dehydration; J43.9 Emphysema, unspecified; Z68.24 Body mass index [BMI] 24.0-24.9, adult; Z91.14 Patient's other noncompliance with medication regimen; Z91.19 Patient's noncompliance with other medical treatment and regimen; Z89.412 Acquired absence of left great toe; Z83.3 Family history of diabetes mellitus; Z82.49 Family history of ischemic heart disease and other diseases of the circulatory system
CPT/HCPCS: 36415; 36430; 73630; 80048; 80053; 80202; 82270; 82550; 82607; 82728; 82746; 82948; 83036; 83540; 83550; 83605; 83630; 83874; 84145; 84443; 85014; 85018; 85025; 85045; 85651; 86140; 86850; 86900; 86901; 86923; 87040; 87070; 87076; 87077; 87177; 87186; 87324; 87328; 87507; 87635; 93925; 97039; 99291; G0378; J0330; J1100; J1650; J1756; J1815; J2001; J2250; J2405; J2543; J2704; J2710; J2795; J3010; J3370; J3490; J7030; J7050; P9016

== ENCOUNTER 2021-02-04 13:31 | Emergency (ER) | payer SELFPAY ==
[~2021-02-04] VITALS: Ht 157.5 cm; Wt 63.5 kg
[~2021-02-04 13:31] MED LIST changes: -METF-444 PO; +METF-446 PO
[2021-02-04 13:32] VITALS: BP 100/58
== END 2021-02-04 15:50 | disposition home or self-care (01) ==
LOC: EDH 13:31
DX: Z48.02 Encounter for removal of sutures (principal); E78.00 Pure hypercholesterolemia, unspecified; E11.9 Type 2 diabetes mellitus without complications; Z79.84 Long term (current) use of oral hypoglycemic drugs
CPT/HCPCS: 99281

== ENCOUNTER 2024-08-30 14:39 | Inpatient (IN) | payer MEDICARE ==
[~2024-08-30] VITALS: Ht 162.6 cm; Wt 66.9 kg
[2024-08-30 15:20] LABS: IMMATURE GRANULOCYTE ABSOLUTE 0.20 K/uL (0-1); NUCLEATED RED BLOOD CELLS 0.0 % (0.0-0.19); PLATELET COUNT (AUTO) 313 K/uL (130-400); RED BLOOD CELL COUNT(AUTO) 3.46 MIL/uL (4.50-6.20); RED CELL DISTRIBUTION WIDTH 12.7 % (11.0-15.5); WHITE BLOOD COUNT (AUTO) 21.4 K/uL (4.8-10.8)
[2024-08-30 15:32] LABS: CREATININE 2.0 mg/dL (0.5-1.3); GLOMERULAR FILTR. RATE CALC 36.0 mL/min (>90); GLUCOSE,RANDOM 180.0 mg/dL (70-105); SODIUM SERUM 125.0 mmol/L (136-145); UREA NITROGEN, BLOOD 52.0 mg/dL (7-18)
--- NOTE | 2024-08-30 15:35 | NUR ---
CHLORIDE - 90, ERMD MADE AWARE
[2024-08-30 15:50] LABS: CREATINE KINASE, TOTAL 436.0 U/L (21-232)
[2024-08-30 16:25] LABS: ERYTHROCYTE SEDIMENTATION RATE 113 MM/HR (0-20)
[2024-08-30] MEDS: ZOSYN 3.375GM +NS 50ML IV ONE (16:53)
--- NOTE | 2024-08-30 16:53 | ERN ---
General Chief Complaint: Weakness Stated Complaint: GBW Time Seen by MD: 14:41 Source: patient History of Present Illness Initial Comments PATIENT IS A 63 MALE CAME TO BE EVALUATED FOR LEFT FOOT WOUND. PER PATIENT THIS WOUND HAS BEEN ONGOING FOR A COUPLE OF DAYS. HE DOES HAS A HISTORY OF DIABETES. Allergies: Coded Allergies: No Known Allergies (Unverified Allergy, Unknown, 09/21/16) Home Meds Active Scripts Metformin HCl (Metformin HCl) 1,000 Mg Tablet, 1000 MG PO BIDMEALS, #60 TAB 0 Refills Prov:SERA BRIDGES MD 01/05/21 Past Medical History Past Medical History: Diabetes-Type II Past Surgical History: None Surgical History Other: RIGHT BKA, Family History Family History: Negative Social History Social History: Negative ROS Dictation CONSTITUTIONAL: NO CHILLS, NO FEVER, NO WEAKNESS, NO DIAPHORESIS, NO MALAISE. HEAD/FACE: NO SIGNS OF TRAUMA. EENT: NO EYE PAIN, NO BLURRED VISION, NO TEARING, NO DOUBLE VISION, NO EAR PAIN, NO EAR DISCHARGE, NO NOSE PAIN, NO NASAL CONGESTION, NO THROAT PAIN, NO THROAT SWELLING, NO MOUTH PAIN. RESPIRATORY: NO COUGH, NO ORTHOPNEA, NO SOB, NO STRIDOR, NO WHEEZING. CARDIOVASCULAR: NO CHEST PAIN, NO EDEMA, NO PALPITATIONS, NO SYNCOPE. GASTROINTESTINAL/ABDOMINAL: NO ABDOMINAL PAIN, NO CONSTIPATION, NO DIARRHEA, NO NAUSEA, NO VOMITING. GENITOURINARY: NO ABNORMAL DISCHARGE, NO DYSURIA, NO FREQUENT URINATION, NO HEMATURIA. NO COMPLAINTS OF PAIN IN THE GENITALS. MUSCULOSKELETAL: NO BACK PAIN, NO GOUT, NO JOINT PAIN, NO JOINT SWELLING, NO MUSCLE PAIN, NO MUSCLE STIFFNESS, NO NECK PAIN. INTEGUMENTARY: NO CHANGE IN COLOR, NO CHANGE IN HAIR/NAILS, NO DRYNESS, LESION, NO LUMPS, NO RASH. NEUROLOGICAL/PSYCH: NO ANXIETY, NOT DEPRESSED, NO EMOTIONAL PROBLEM, NO HEADACHE, NO NUMBNESS, NO PRE-EXISTING DEFICIT, NO HISTORY OF SEIZURES, NO TREMORS, NO WEAKNESS. HEMATOLOGIC/LYMPHATIC: NOT ANEMIC, NO HISTORY OF BLOOD CLOTS, NO APPARENT BLEEDING, NO BRUISING, GLANDS NOT SWOLLEN. ALL SYSTEMS NEGATIVE, EXCEPT NOTED. Physical Exam Physical Exam Dictation VITAL SIGNS: REVIEWED. GENERAL APPEARANCE: ALERT, ORIENTED X3, NO ACUTE DISTRESS, OBESE. HEAD AND FACE: NON-TRAUMATIC. EYES: PERRL, PINK CONJUNCTIVAS, EYELID NO TRAUMA, ANTERIOR CHAMBER CLEAR. EARS: PINNAS INTACT AND NO SIGNS OF TRAUMA OR ERYTHEMA. EAR CANALS CLEAR AND NO DISCHARGE. TMS NO ERYTHEMA. NOSE: NO DISCHARGE, NO BLEEDING. OROPHARYNX: MOUTH NORMAL, TEETH NO CARIES, TONGUE PINK. PHARYNX CLEAR, NO ERYTHEMA. TONSILS NO EXUDATES, NO ABSCESSES NOTED. MUCOUS MEMBRANE MOIST. NECK: SUPPLE, NON-TENDER, NO THYROMEGALY, NO MASSES, NO JVD, NO BRUITS. BREAST: DEFERRED. CHEST: NO TENDERNESS, NO CREPITUS, NO PARADOXICAL MOVEMENT, NO RETRACTIONS. LUNGS: CLEAR, WELL-VENTILATED, SYMMETRIC, NO RALES, NO WHEEZING, NO RHONCHI, NO STRIDOR, GOOD BREATH SOUNDS BILATERALLY. HEART: REGULAR RATE, REGULAR RHYTHM, NO MURMUR, NO GALLOPS. VASCULAR: NO PERIPHERAL EDEMA. ABDOMEN: SOFT, POSITIVE BOWEL SOUNDS, NONDISTENDED, NO GUARDING, NONTENDER, NO REBOUND, NO MASSES NO HEPATOMEGALY, NO SPLENOMEGALY, NO MALONEY'S SIGN, NO HERNIAS. RECTAL: DEFERRED. GENITAL: DEFERRED. NEUROLOGICAL: NORMAL SPEECH, GROSS MOTOR FUNCTION INTACT, GROSS SENSORY FUNCTION INTACT. MUSCULOSKELETAL: NECK NONTENDER, FULL RANGE OF MOTION, BACK NONTENDER, FULL RANGE OF MOTION. EXTREMITIES: NONTENDER, FULL RANGE OF MOTION. SKIN: COLOR PINK, DRY, NO TURGOR, NO RASH, NO LACERATIONS, FOR LEFT EXTREMITY WOUND LYMPHATICS: DEFERRED. Results Laboratory and Microbiology Lab and Micro Result Laboratory Tests Test 08/30/24 15:13 White Blood Count 21.4 K/uL (4.8-10.8) H Red Blood Count 3.46 MIL/uL (4.50-6.20) L Hemoglobin 10.3 g/dL (14.0-18.0) L Hematocrit 30.5 % (42-54) L Mean Corpuscular Volume 88.2 fL (79-99) Mean Corpuscular Hemoglobin 29.8 pg (27.0-33.0) Mean Corpuscular Hemoglobin Concent 33.8 g/dL (32.0-36.0) Red Cell Distribution Width 12.7 % (11.0-15.5) Platelet Count 313 K/uL (130-400) Mean Platelet Volume 10.2 fL (7.5-10.5) Immature Granulocyte % (Auto) 0.9 % (0-1) Neutrophils (%) (Auto) 87.9 % (40.0-77.0) H Lymphocytes (%) (Auto) 4.7 % (21.0-51.0) L Monocytes (%) (Auto) 6.4 % (3.0-13.0) Eosinophils (%) (Auto) 0.0 % (0.0-8.0) Basophils (%) (Auto) 0.1 % (0.0-5.0) Neutrophils # (Auto) 18.8 K/uL (1.8-7.7) H Lymphocytes # (Auto) 1.0 K/uL (1.0-4.8) Monocytes # (Auto) 1.4 K/uL (0.1-1.0) H Eosinophils # (Auto) 0.00 K/uL (0.00-0.70) Basophils # (Auto) 0.02 K/uL (0.00-0.20) Absolute Immature Granulocyte (auto 0.20 K/uL (0-1) Nucleated Red Blood Cells 0.0 % (0.0-0.19) White Cell Morphology Comment See comments Erythrocyte Sedimentation Rate 113 MM/HR (0-20) H Sodium Level 125 mmol/L (136-145) L Potassium Level 5.1 mmol/L (3.5-5.1) Chloride Level 90 mmol/L (101-111) *L Carbon Dioxide Level 24 mmol/L (21-32) Blood Urea Nitrogen 52 mg/dL (7-18) H Creatinine 2.0 mg/dL (0.5-1.3) H Glomerular Filtration Rate Calc 36 mL/min (>90) Random Glucose 180 mg/dL (70-105) H Lactic Acid Level 2.5 mmol/L (0.8-2.5) Total Calcium 8.7 mg/dL (8.5-10.1) Total Creatine Kinase 436 U/L (21-232) #*H Troponin I High Sensitivity 6 ng/L (4-75) Labs Reviewed?: Yes EKG/XRAY/US/CT/MRI X-RAY Comment X-RAY FOOT-OSTEOMYELITIS OF GREAT TOE MDM MDM: DIFFERENTIAL DIAGNOSIS: SEPSIS, OSTEOMYELITIS OF THEFOOT, DIABETES MELLITUS, KEVIN, HAS BEEN RATIONALE: TESTS CONSIDERED AND ORDERED SECONDARY TO SHARED DECISION MAKING INCLUDE: LABS, ECG AND RADIOLOGY PREVIOUS OUTSIDE RECORDS REVIEWED: OLD ER VISITS. RISK OF COMPLICATION AND/OR MORBIDITY OR MORTALITY OF PATIENT MANAGEMENT: NONE MEDICATIONS-PER MEDICATION RECONCILIATION NEED FOR HOSPITALIZATION: PATIENT DOES MEET CRITERIA FOR HOSPITALIZATION. NEED FOR EMERGENCY MAJOR/MINOR SURGERY: NO THERE ARE NO SOCIAL CONCERNS WITH THIS PATIENT. PRESCRIPTION DRUG MANAGEMENT PRESCRIPTIONS WILL INCLUDE SYMPTOMATIC CARE PATIENT'S PRIOR EXTERNAL MEDICAL RECORDS FROM OTHER ER VISITS WERE REVIEWED BY ME INDICATED. PRIOR TESTING AND RESULTS FROM PREVIOUS VISITS WERE REVIEWED. PRIOR TESTS WERE TAKEN INTO ACCOUNT WITH MEDICAL DECISION MAKING AND RESOURCE UTILIZATION, INDEPENDENT HISTORIAN/HISTORIANS WERE USED TO OBTAIN COMPLETE MEDICAL HISTORY. I INDEPENDENTLY INTERPRETED THE TEST THAT WERE PERFORMED, RESULTS WERE REVIEWED BY ME AND CONSIDERED FINDINGS ON RADIOLOGY IF ORDERED. MEDICAL MANAGEMENT AND EXAMINATION INTERPRETATION DISCUSSIONS WERE HAD BY ME WITH OTHER QUALIFIED HEALTHCARE PROFESSIONALS INDICATED FOR THE PATIENT'S CARE. ED Course Orders Procedure Category Date Status Time Cbc With Differential LAB 08/30/24 Complete 14:57 Blood Cult ELEAZAR 08/30/24 In Process 14:57 Urinalysis Profile LAB 08/30/24 Logged 14:57 Culture Urine ELEAZAR 08/30/24 Logged 14:57 Creatine Kinase, Total LAB 08/30/24 Complete 14:57 Troponin I High LAB 08/30/24 Complete Sensitivity 14:57 Lactic Acid LAB 08/30/24 Complete 14:57 Basic Metabolic Panel LAB 08/30/24 Complete 14:57 Erythrocyte LAB 08/30/24 Complete Sedimentation Rate 14:57 Foot Comp 3+Vws Lt RAD 08/30/24 Taken 15:00 Vancomycin 1g/250ml PHA 08/30/24 In Process Kit (Vancomycin 1g/2 17:00 Zosyn 3.375gm+Ns 50ml PHA 08/30/24 In Process (Zosyn 3.375gm+Ns 17:00 0.9%Nacl 1000ml (Ns PHA 08/30/24 In Process 1000ml) 17:00 Current Medications Medications (Trade) Dose Ordered Sig/Nathaly Route PRN Reason Start Time Stop Time Status Last Admin Dose Admin Piperacillin Sod/ Tazobactam Sod (Zosyn 3.375gm+NS 50ml) 3.375 gm ONCE ONCE IV 08/30/24 17:00 08/30/24 17:01 Sodium Chloride 1,497 ml @ 499 mls/hr ONCE ONCE IV 08/30/24 17:00 08/30/24 19:59 Vancomycin HCl (Vancomycin 1g/ 250ml Kit) 1 gm ONCE ONCE IV 08/30/24 17:00 08/30/24 17:01 Vital Signs Date Time Temp Pulse Resp B/P (MAP) Pulse Ox O2 Delivery O2 Flow Rate FiO2 08/30/24 15:54 78 18 94/52 98 Room Air* 0 21 08/30/24 14:40 100.0 102 20 81/50 99 0 Critical Care Note Comments CRITICAL CARE PROCEDURE NOTE AUTHORIZED AND PERFORMED BY: TOTAL CRITICAL CARE TIME: APPROXIMATELY 36 MINUTES DUE TO A HIGH PROBABILITY OF CLINICALLY SIGNIFICANT, LIFE THREATENING DETERIORATION, THE PATIENT REQUIRED MY HIGHEST LEVEL OF PREPAREDNESS TO INTERVENE EMERGENTLY AND I PERSONALLY SPENT THIS CRITICAL CARE TIME DIRECTLY AND PERSONALLY MANAGING THE PATIENT. THIS CRITICAL CARE TIME INCLUDED OBTAINING A HISTORY; EXAMINING THE PATIENT; PULSE OXIMETRY; ORDERING AND REVIEW OF STUDIES; ARRANGING URGENT TREATMENT WITH DEVELOPMENT OF A MANAGEMENT PLAN; EVALUATION OF PATIENT'S RESPONSE TO TREATMENT; FREQUENT REASSESSMENT; AND, DISCUSSIONS WITH OTHER PROVIDERS. THIS CRITICAL CARE TIME WAS PERFORMED TO ASSESS AND MANAGE THE HIGH PROBABILITY OF IMMINENT, LIFE-THREATENING DETERIORATION THAT COULD RESULT IN MULTI-ORGAN FAILURE. IT WAS EXCLUSIVE OF SEPARATELY BILLABLE PROCEDURES AND TREATING OTHER PATIENTS AND TEACHING TIME. PLEASE SEE MDM SECTION AND THE REST OF THE NOTE FOR FURTHER INFORMATION ON PATIENT ASSESSMENT AND TREATMENT. DX & DISP Disposition: Inpatient Decision to Admit Time: 16:55 Departure Impression: Primary Impression: Foot osteomyelitis, left Additional Impressions: Sepsis, KEVIN (acute kidney injury), Diabetes mellitus Condition: Stable Referrals: SELF,REFERRAL (PCP) IVON UNDERWOOD MD Aug 30, 2024 16:53
[2024-08-30] MEDS: [UNRECOGNIZED DRUG - OTHER] IV ONE (16:58)
[2024-08-30] MEDS: VANCOMYCIN KIT 1 GM/250 ML IV.KIT IV ONE (16:59)
--- NOTE | 2024-08-30 17:13 | NUR ---
WOUND CULTURE COLLECTED
--- NOTE | 2024-08-30 17:29 | NUR ---
PT REPORTS THAT HE HAS NOT SEEN A PCP OR TAKEN ANY MEDS FOR HIS HISTORY SINCE HIS LAST AMPUTATION ([facility]) ADMISSION APPROX 4 YRS AGO.
[2024-08-30] MEDS: PHARMACY COMMUNICATION MISC SCH (17:56)
--- NOTE | 2024-08-30 17:56 | HMCIMG ---
EXAM: CR Left foot, 3 View. CLINICAL HISTORY: SEPSIS COMPARISON: Comparison: Radiograph dated September 21, 2016 Findings: AP, oblique, lateral views of the left foot are submitted. Interval amputation of the great toe from the distal metatarsal. There is edema and subcutaneous emphysema within the soft tissues overlying the first metatarsal. Presumed interval amputation of the second toe from the mid to distal second proximal phalanx and of the third toe from the distal interphalangeal joint. Clinical correlation is advised. There is suggestion of bone loss and cortical irregularities seen within the mid diaphyses of the 3rd and 4th proximal phalanxes. Findings may reflect osteomyelitis. Recommend contrast-enhanced MRI of the midfoot/forefoot for further evaluation. IMPRESSION: 1. Status post interval amputation of great toe, second toe, and third toe with soft tissue edema and subcutaneous emphysema overlying the first metatarsal. 2. Possible osteomyelitis of 3rd and 4th proximal phalanxes. Recommend MRI of the midfoot/forefoot for further evaluation. /[place]
[2024-08-30] MEDS ORDERED: GLUCAGON 1MG KIT 1 MG ML IM PRN (18:00)
[2024-08-30] MEDS ORDERED: LINEZOLID 600 MG/ISO-OSM 300 ML IV SCH (18:00)
[2024-08-30] MEDS ORDERED: DEXTROSE 50%-WATER 50 ML DISP.SYRIN IV PRN (18:00)
[2024-08-30 18:10] LABS: INR 1.14 (0.85-1.15)
--- NOTE | 2024-08-30 18:10 | HP ---
[facility] HISTORY AND PHYSICAL Date of Service: Aug 30, 2024 Time of Service: 17:55 HISTORY OF PRESENT ILLNESS: Date of service: 08/30/2024 Patient was seen in ER bed three This is a 63-year-old male with underlying history of poorly controlled type 2 diabetes mellitus, peripheral arterial disease, prior history of right [id number] amputation in 2020 due to right foot gangrene and necrotizing fasciitis. Patient reports having history of chronic wounds involving the toes of the left foot for long time. Over the last several weeks, the toes have been getting necrotic, and wound has been very foul-smelling. Patient reports having subjective fevers, chills and malaise. He has been having poor oral intake with associated nausea. He has not been following up with any primary care doctor or wound care physician as outpatient for more than a year. He has not been taking maintenance medication for diabetes either as outpatient. Patient denies any previous cardiac, pulmonary or renal comorbidities. Denies previous history of PA. Denies previous history of significant smoking, alcohol consumption or drug use. On presentation to the hospital, patient was noted to be febrile with T-max of 100.0 F, heart rate of 102, blood pressure of 81/50. [place] [address], hemoglobin of 10.3, platelet count of 012555. BMP remarkable for sodium of 125, potassium 5.1, chloride of 90, BUN of 52, creatinine 2.0, blood glucose of 180, CK of 436 cardiac panel showed troponin of six. Patient will be admitted for further treatment and management of wet gangrene of the right foot with suspected osteomyelitis of the toes. Patient will receive IV fluids and IV antibiotics. Consultation with Podiatry, Infectious Disease will be requested. Patient will be evaluated for amputation given extensive necrosis of the toes noted. REVIEW OF SYSTEMS CONSTITUTIONAL: fevers, chills, malaise, poor oral intake NEUROLOGICAL: Denies headache, amaurosis fugax, motor weakness, sensory deficit, vertigo/spinning sensation, gait abnormalities, or tremors. ENT: No hearing loss, otalgia, otorrhea, rhinitis, rhinorrhea, hoarseness, or sore throat. CARDIOVASCULAR: Denies any exertional angina, dyspnea on exertion, orthopnea, paroxysmal nocturnal dyspnea, palpitations, life-threatening arrhythmias, erick ication. PULMONARY: Denies any shortness of breath, cough, phlegm/sputum, hemoptysis, pleuritic chest pain. SLEEP: Denies morning headaches, daytime somnolence or napping. Denies difficulty falling asleep, staying asleep, waking from sleep. Denies knowledge of snoring. GASTROINTESTINAL: Denies any type of dysphagia to either liquids or solids. Denies nausea, vomiting, pyrosis, early satiety, abdominal pain, diarrhea, constipation, or changes in stool consistency or caliber. Denies coffee-ground emesis, hematemesis, hematochezia, or melanotic stools. GENITOURINARY: Denies frequency, urgency, nocturia, hematuria or incontinence (Storage/Irritative symptoms.) Low urinary stream, straining to void, urinary intermittency or hesitancy, splitting of the voiding stream, terminal dribbling. ENDOCRINOLOGIC: Hx of type 2 Diabetes mellitus HEMATOLOGIC: Denies thrombophilia/previous clots, or coagulopathy/bleeding disorders. ONCOLOGIC: Denies personal history of malignancy. DERMATOLOGIC: foul smelling necrotic toes of the left foot with non healing wounds PSYCHIATRIC: Denies any suicidal or homicidal ideation. Denies hallucinations. PAST MEDICAL HISTORY: Type 2 diabetes mellitus, peripheral arterial disease, anemia PAST SURGICAL HISTORY: History of necrotizing fasciitis of the right foot with gangrene requiring right [id number] [place] [address] Pagan PAST SOCIAL HISTORY: Denies active smoking or alcohol consumption, denies illicit drug use FAMILY HISTORY: Denies pertinent family history Allergies: No known drug allergies Home medications: Denies taking maintenance outpatient home medications Coded Allergies: No Known Allergies (Unverified Allergy, Unknown, 09/21/16) PHYSICAL EXAM GENERAL APPEARANCE: The patient is awake, alert, and oriented, in no acute cardiopulmonary distress. NEUROLOGICAL: Cranial nerves II-XII grossly intact. Motor is 5/5 in bilateral upper and lower extremities proximal to distal. No sensory deficits. HEENT: Face is symmetric. Pupils are equal and reactive. Extraocular movements are intact. NECK: Supple. No JVD. No thyromegaly. No submental, submandibular, pre-/postauricular, occipital or supraclavicular lymphadenopathy. CHEST: Normal chest expansion. No Telemetry. LUNGS: Absence of any rales, rhonchi or any wheezing. CARDIOVASCULAR: Regular. S1 and S2 normal. No appreciable rubs, murmurs or gallops. ABDOMEN: Soft, nontender, and nondistended. There is no rebound, voluntary guarding, or rigidity. : Deferred. No Sandhu. EXTREMITIES: Left foot noted to have extremely foul-smelling wound with necrotic toes noted from 2nd two fifth digit, area of erythema and surrounding cellulitic changes noted Vital Sign (Last 24 Hours) 08/30/24 17:00 Temp 99.9 Pulse 74 Resp 18 B/P (MAP) 101/63 Pulse Ox 99 O2 Delivery Room Air* O2 Flow Rate 0 FiO2 21 LABS: Laboratory: Test 08/30/24 15:13 Range/Units White Blood Count 21.4 H 4.8-10.8 K/uL Red Blood Count 3.46 L 4.50-6.20 MIL/uL Hemoglobin 10.3 L 14.0-18.0 g/dL Hematocrit 30.5 L 42-54 % Mean Corpuscular Volume 88.2 79-99 fL Mean Corpuscular Hemoglobin 29.8 27.0-33.0 pg Mean Corpuscular Hemoglobin Concent 33.8 32.0-36.0 g/dL Red Cell Distribution Width 12.7 11.0-15.5 % Platelet Count 313 130-400 K/uL Mean Platelet Volume 10.2 7.5-10.5 fL Immature Granulocyte % (Auto) 0.9 0-1 % Neutrophils (%) (Auto) 87.9 H 40.0-77.0 % Lymphocytes (%) (Auto) 4.7 L 21.0-51.0 % Monocytes (%) (Auto) 6.4 3.0-13.0 % Eosinophils (%) (Auto) 0.0 0.0-8.0 % Basophils (%) (Auto) 0.1 0.0-5.0 % Neutrophils # (Auto) 18.8 H 1.8-7.7 K/uL Lymphocytes # (Auto) 1.0 1.0-4.8 K/uL Monocytes # (Auto) 1.4 H 0.1-1.0 K/uL Eosinophils # (Auto) 0.00 0.00-0.70 K/uL Basophils # (Auto) 0.02 0.00-0.20 K/uL Absolute Immature Granulocyte (auto 0.20 0-1 K/uL Nucleated Red Blood Cells 0.0 0.0-0.19 % White Cell Morphology Comment See comments Erythrocyte Sedimentation Rate 113 H 0-20 MM/HR Sodium Level 125 L 136-145 mmol/L Potassium Level 5.1 3.5-5.1 mmol/L Chloride Level 90 *L 101-111 mmol/L Carbon Dioxide Level 24 21-32 mmol/L Blood Urea Nitrogen 52 H 7-18 mg/dL Creatinine 2.0 H 0.5-1.3 mg/dL Glomerular Filtration Rate Calc 36 >90 mL/min Random Glucose 180 H 70-105 mg/dL Lactic Acid Level 2.5 0.8-2.5 mmol/L Total Calcium 8.7 8.5-10.1 mg/dL Total Creatine Kinase 436 #*H 21-232 U/L Troponin I High Sensitivity 6 4-75 ng/L Current Medications Medications (Trade) Dose Ordered Sig/Nathaly Route PRN Reason Start Time Stop Time Status Last Admin Dose Admin Acetaminophen (TYLenol 325MG TAB) 650 mg Q6H PRN PO MILD PAIN (1-3) 08/30/24 17:30 09/29/24 17:29 Dextrose (D50w) 50 ml AD PRN IV HYPOGLYCEMIA PROTOCOL 08/30/24 18:00 09/29/24 17:59 Glucagon (Glucagon 1mg Kit) 1 mg AD PRN IM HYPOGLYCEMIA PROTOCOL 08/30/24 18:00 09/29/24 17:59 Hydromorphone HCl (DiLAUDid 0.5MG INJ) 0.2 mg Q6H PRN IVP SEVERE PAIN (7-10) 08/30/24 17:30 09/04/24 17:29 Insulin Human Regular (humuLIN R 100 UNIT/ML 3ML) INSULIN SLIDING SCAL... ACHS SQ 08/30/24 21:00 09/29/24 20:59 Linezolid 300 ml @ 150 mls/hr Q12H IV 08/30/24 18:00 08/30/24 17:37 DC Linezolid 300 ml @ 150 mls/hr Q12H IV 08/30/24 20:00 09/09/24 19:59 Ondansetron HCl (zoFRAN 4MG INJ) 4 mg Q6H PRN IVP NAUSEA/VOMITING 08/30/24 17:30 09/29/24 17:29 Pharmacy Profile Note (Pharmacy Communication) 1 each ONCE MISC 08/30/24 17:30 09/06/24 17:29 Piperacillin Sod/ Tazobactam Sod (Zosyn 3.375gm+NS 50ml) 3.375 gm Q12H IVPB 08/30/24 21:00 09/09/24 20:59 Sodium Chloride 1,000 ml @ 75 mls/hr [id number] IV 08/30/24 20:00 09/29/24 19:59 Thiamine HCl (Vitamin B-1) 100 mg Q24H IVP 08/30/24 18:00 09/03/24 18:00 DIAGNOSTICS / RADIOLOGY: [place] [id number] [address] IMAGING REPORT Signed PATIENT: CHADD MAGDALENO MR#: [id number] : 1960 SEX: M AGE: 63 LOCATION: [facility] ORDER 1501 STATUS: ADM IN REPORT#: [id number] SERVICE 1500 REASON: SEPSIS ORDERING PHYSICIAN: IVON UNDERWOOD MD PROCEDURE: FT 3VW LT - FOOT COMP 3+VWS LT EXAM: CR Left foot, 3 View. CLINICAL HISTORY: SEPSIS COMPARISON: Comparison: Radiograph dated September 21, 2016 Findings: AP, oblique, lateral views of the left foot are submitted. Interval amputation of the great toe from the distal metatarsal. There is edema and subcutaneous emphysema within the soft tissues overlying the first metatarsal. Presumed interval amputation of the second toe from the mid to distal second proximal phalanx and of the third toe from the distal interphalangeal joint. Clinical correlation is advised. There is suggestion of bone loss and cortical irregularities seen within the mid diaphyses of the 3rd and 4th proximal phalanxes. Findings may reflect osteomyelitis. Recommend contrast-enhanced MRI of the midfoot/forefoot for further evaluation. IMPRESSION: 1. Status post interval amputation of great toe, second toe, and third toe with soft tissue edema and subcutaneous emphysema overlying the first metatarsal. 2. Possible osteomyelitis of 3rd and 4th proximal phalanxes. Recommend MRI of the midfoot/forefoot for further evaluation. /[place] DICTATED BY: GISEL CHACON Jr., MD DATE: 08/30/241855 ELECTRONICALLY SIGNED BY: GISEL CHACON Jr., MD DATE: 08/30/241855 ASSESSMENT: Gas/wet gangrene of the left foot with extensively necrotic toes and underlying acute osteo-myelitis of multiple toes, POA Sepsis, POA, (complicated soft tissue infection of the left foot with underlying osteomyelitis) Poorly controlled type 2 diabetes mellitus, POA Acute renal failure, POA Acute rhabdomyolysis, POA Anemia, POA Significant leukocytosis secondary to underlying septicemia, POA Moderate hyponatremia, POA Hx of right BKA, POA PLAN: Patient will be admitted to cardiac telemetry floor Patient will receive sepsis bolus of fluids and maintenance IV fluid of NS at 75 mL/hour Broad-spectrum antibiotics with IV linezolid/Zosyn Consultation with Podiatry will be requested, patient with wet gangrene and soft tissue air noted on the radiographs of the left foot with signs of osteomyelitis, patient w/ foul-smelling wound with significant necrotic toes, patient will need evaluation for amputation of the toes We will obtain lower extremity arterial Doppler to assess for flow-limiting arterial stenosis impairing wound healing, if significantly abnormal, we will consider cardiology consultation We will request consultation with Infectious Disease We will request consultation with Nephrology All medications will be renally dosed Pain control with low-dose IV hydromorphone 0.2 mg q.6 hours p.r.n. We will start patient on IV thiamine supplementation We will check iron panel tomorrow, we will send urine lytes All labs will be repeated in the morning Anticipate hospitalization for greater than 72 hours Plan of care was discussed with patient at bedside, Jj Correa MD Advanced Care Planning: Which of the following were discussed: Hospice care: Yes __ No _X_ Therapeutic options: Yes _X_ No __ Advance directives: Yes _X_ No __ Other discussions: Discussed with who?: Patient Voluntary nature of this service was explained to the patient? Yes _x_ No __ Amount of time spent: 20 minutes JJ CORREA MD Aug 30, 2024 18:10
[2024-08-30 18:14] LABS: ASPARTATE AMINOTRANSFERASE 31.0 U/L (10-37); LACTATE DEHYDROGENASE 126.0 U/L (81-234); TOTAL PROTEIN, SERUM 7.8 g/dL (6.0-8.3)
[2024-08-30] MEDS: THIAMINE HCL 100 MG/ML 2ML VIAL IVP SCH (18:30)
--- NOTE | 2024-08-30 18:33 | NUR ---
PT WAS GIVEN URINAL
--- NOTE | 2024-08-30 19:05 | HMCIMG ---
EXAM: CR Chest, 1 View. CLINICAL HISTORY: rule out any significant lung infiltrates, sepsis, foot infection COMPARISON: 05/02/2017 FINDINGS: LUNGS: There is no mass, infiltrate, or acute pulmonary abnormality. PLEURAL SPACES: No pleural effusion or pneumothorax. MEDIASTINUM: Cardiac size and mediastinal contours within normal limits. BONES: No aggressive appearing osseous lesion seen. IMPRESSION: No acute cardiopulmonary pathology is evident. /[place]
--- NOTE | 2024-08-30 19:23 | HMCIMG ---
EXAMINATION: Renal ultrasound. COMPARISON: None provided. HISTORY: acute renal failure, uncontrolled DM II FINDINGS: The right kidney measures 9.9 cm and is normal in echotexture. The left kidney measures 9.2 cm and is normal in echotexture. There are no focal renal lesions. There are no renal stones. There is no hydronephrosis. There is mild debris noted in the urinary bladder. Cystitis should be excluded. IMPRESSION: Normal kidneys. No hydronephrosis Mild debris noted in the urinary bladder. Cystitis should be excluded. /[place]
--- NOTE | 2024-08-30 19:36 | HMCIMG ---
EXAMINATION: DUPLEX ULTRASOUND EXAMINATION OF THE BILATERAL LOWER EXTREMITY ARTERIES. CLINICAL HISTORY: Non-healing wound in the left, to assess for peripheral arterial disease. COMPARISON: Lower extremity arterial doppler dated 12/29/2020. FINDINGS: Peak systolic velocities within the right lower arteries are as follows: Common femoral artery: 56 cm/s. Superficial femoral artery: 55 cm/s at proximal, 71 cm/s at mid, and 50 cm/s at distal segments. Popliteal artery: 28 cm/s at proximal and 37 cm/s at distal segments. The right lower limb arteries demonstrate biphasic waveforms in all arteries. The below knee arteries are not assessed, post amputation status. Peak systolic velocities within the left lower arteries are as follows: Common femoral artery: 66 cm/s. Superficial femoral artery: 71 cm/s at proximal, 72 cm/s at mid, and 72 cm/s at distal segments. Popliteal artery: 56 cm/s at proximal and 55 cm/s at distal segments. Posterior tibial artery: 30 cm/s. Anterior tibial artery: 47 cm/s. Dorsalis pedis artery: 67 cm/s. The left lower limb arteries demonstrate biphasic waveforms in all arteries other than posterior tibial, anterior tibial, and dorsalis pedis arteries which demonstrate monophasic waveforms. There is intimal wall thickening in both lower limb arteries. IMPRESSION: Mild intimal wall thickening in both the lower limb arteries. Both lower limb arteries demonstrate biphasic waveforms in all arteries other than left posterior tibial, anterior tibial, and dorsalis pedis arteries which demonstrate monophasic waveforms. No flow limiting lesions. /[place]
[2024-08-30] MEDS: LINEZOLID 600 MG/ISO-OSM 300 ML IV SCH (20:23)
[2024-08-30] MEDS: 0.9%NACL 1000ML 1,000 ML IV SCH (20:23)
--- NOTE | 2024-08-30 20:58 | NUR ---
PT WAS CHANGED INTO GOWN, DEBRIDEMNT COMPLETED BY DR. LAYNE. STATES HE WILL ENTER ORDER FOR OR IN AM.
--- NOTE | 2024-08-30 21:30 | CONS ---
HISTORY OF PRESENT ILLNESS: The patient is a 63-year-old diabetic male who presented to the emergency room with a T-max of 100, blood pressure of 114/57, a pulse of 102, respirations of 20. The patient's lab showed he had a white count of 21.4. He had an H and H of 10.3 and 30.5. He has a platelet count of 331, neutrophils 87.9. The patient has had a sedimentation rate of 113. He has a BUN and creatinine level 52 and 2.0, chloride 90, total creatine kinase 436, sodium 125. The patient with a hemoglobin A1c of 7.7, albumin 2.8. The patient is currently receiving IV Zosyn and IV Zyvox, hydromorphone for pain. The patient has a concern of an infected left foot with gangrene and foul smell. He states he is feeling weak and tired and has had a poor appetite. PAST MEDICAL HISTORY: Significant for poorly controlled diabetes, peripheral vascular disease, [id number]-[id number] amputation on the right in 2020 due to right foot gangrene and necrotizing fasciitis. He states he has had chronic wounds to his toes on the left foot for a long time and he has not seen his primary care physician or any outpatient physician for more than a year. He is having poor oral intake with associated nausea. He feels sick, weak, and tired. REVIEW OF SYSTEMS: CONSTITUTIONAL: Shows he is having fevers and chills, malaise, poor oral intake, weakness, poor appetite, and nausea. HEENT: No problems with his eyes, ears, nose, or throat. CARDIOVASCULAR: He is having no current chest pain. History of peripheral vascular disease. GENITOURINARY: No dysuria. He has elevated BUN and creatinine. GASTROINTESTINAL: No dysphagia. Poor appetite. ENDOCRINE: Diabetes. Hemoglobin A1c 7.7. PSYCHIATRIC: He denies any depression. MUSCULOSKELETAL: He has a [id number]-juw-[id number] amputation on the right. INTEGUMENT: He has wet gangrene to digits 2, 3, 4, and 5 on the left. He has an amputation of the first toe on the left. He has ingrown toenails to the second, third, fourth, and fifth toes. He has putrid-smelling wet gangrene to the digits 2, 3, 4, and 5. He has an area of liquefaction necrosis to the fourth interspace on the left. PHYSICAL EXAMINATION: EXTREMITIES: His examination today shows he has a palpable anterior tibial pulse. I cannot palpate his posterior tibial pulse on the left. He has a jhgxn-ipw-cksv amputation on the right that is healed. He has wet gangrene to the digits 2, 3, 4, and 5 on the left. He has foul-smelling purulent drainage from all digits. He has ingrown toenails to the second, third, fourth, and fifth toenails. He has decreased protective, sharp, dull, and vibratory sensation to his feet bilaterally. He has edema, erythema, and forefoot cellulitis. He has exposed proximal interphalangeal joints of the second, third, fourth, and fifth digits with purulent drainage. ASSESSMENT: At this point is wet gangrene, sepsis, leukocytosis, gas gangrene on the patient's left foot x-rays. Ingrown toenails all digits remaining to the left foot #2, 3, 4, and 5. Liquefaction and hemorrhagic necrosis of the tissues to the fourth interspace on the left. X-rays show a partial first ray amputation at the distal third of the first metatarsal. There appears to be gas in the tissue in the plantar sulcus of the left foot. PLAN: With the patient's consent, I blocked the left foot with 20 mL of 50:50 mix of 1% lidocaine plain and 0.5% Marcaine plain. With the use of a #15 scalpel blade, forceps, tissue nipper and a rongeur, I removed the ingrown toenails second, third, fourth, and fifth. I then performed a sharp excisional debridement of liquefaction, hemorrhagic, and foul-smelling putrid subcutaneous tissues from the second toe, third toe, fourth toe, fifth toe, and the fourth interspace. There was a total area of sharp excisional debridement of 6 x 4 cm, 2 cm in depth for a total area of sharp excisional debridement of 24 cm2 of putrid-smelling liquefaction and hemorrhagic necrosis of skin and subcutaneous tissues and tendon and there was no significant bleeding noted. Deep soft tissue cultures were taken. All wounds were packed open with Betadine-soaked gauze. I had a long discussion with the patient and his sister about surgical intervention. My recommendation is to take the patient tomorrow for a transmetatarsal amputation of the left foot, which would include cutting of skin, soft tissue, and bone with amputation of the front half of the left foot. The patient and his sister were in agreement with the plan for surgical intervention due to the obvious gangrene affecting the left forefoot. I gave no guarantees for healing. I informed them that he would need vascular evaluation of his circulation status after the surgery and the goal of the surgery was to remove the infected tissue. I reviewed the surgery. I reviewed the risks. I reviewed the benefits. I reviewed the postoperative course. No guarantees for healing were given. The patient was in agreement to proceed with a transmetatarsal amputation of the left foot tomorrow with the goal of removing the infected tissue from the left foot and he understands we will need to consult the cardiology service for evaluation of his circulation status. I dressed all wounds with Betadine-soaked gauze. He will continue with the Zosyn and the Zyvox. I will make the patient n.p.o. after midnight tonight. Plan for surgical intervention tomorrow morning at 7:30 a.m. with local anesthesia, monitored anesthesia care, and intravenous sedation for his anesthesia. The patient had the opportunity to ask questions. His sister had the opportunity to ask questions. All questions were answered. No guarantees for healing were given. TID: [id number] RECEIPT: [id number]
[2024-08-30] MEDS: ZOSYN 3.375GM +NS 50ML IVPB SCH (23:06)
[2024-08-30 23:54] VITALS: BP 114/61; PULSE 87; RESP 21; TEMP 98.5
[2024-08-31] VITALS (27 sets, daily range): BP systolic 88–131; BP diastolic 45–79; PULSE 77–110; RESP 15–20; TEMP 97.4–99.2; O2SAT 97–98
[2024-08-31 01:32] LABS: APPEARANCE,URINE CLOUDY (CLEAR); GLUCOSE, URINE (UA) 200 mg/dL (NEGATIVE); LEUKOCYTE ESTERASE ,URINE 500 Leu/uL (NEGATIVE); NITRATE,URINE NEGATIVE (NEGATIVE); OCCULT BLOOD,URINE +- (TRACE) (NEGATIVE)
[2024-08-31 01:33] LABS: ADD UA MICROSCOPIC YES
[2024-08-31 01:35] LABS: CREATININE,URINE RANDOM 69.01 mg/dL (30-135); SQUAMOUS EPITHELIAL CELL,UR FEW /HPF (0-2); WBC CLUMP MANY /HPF (0-1)
[2024-08-31 01:40] LABS: AMPHET/METH SCREEN,URINE NEGATIVE (NEGATIVE); BARBITURATE SCREEN, URINE NEGATIVE (NEGATIVE); CANNABINOID SCREEN,URINE NEGATIVE (NEGATIVE); COCAINE SCREEN,URINE NEGATIVE (NEGATIVE)
[2024-08-31 04:13] LABS: IMMATURE GRANULOCYTE ABSOLUTE 0.13 K/uL (0-1); NUCLEATED RED BLOOD CELLS 0.0 % (0.0-0.19); PLATELET COUNT (AUTO) 246 K/uL (130-400); RED BLOOD CELL COUNT(AUTO) 3.02 MIL/uL (4.50-6.20); RED CELL DISTRIBUTION WIDTH 12.5 % (11.0-15.5); WHITE BLOOD COUNT (AUTO) 14.9 K/uL (4.8-10.8)
[2024-08-31 04:31] LABS: ASPARTATE AMINOTRANSFERASE 22.0 U/L (10-37); CREATINE KINASE, TOTAL 247.0 U/L (21-232); CREATININE 1.6 mg/dL (0.5-1.3); GLOMERULAR FILTR. RATE CALC 47.0 mL/min (>90); GLUCOSE,RANDOM 134.0 mg/dL (70-105); SODIUM SERUM 130.0 mmol/L (136-145); TOTAL PROTEIN, SERUM 6.5 g/dL (6.0-8.3); UREA NITROGEN, BLOOD 38.0 mg/dL (7-18)
[2024-08-31] MEDS ORDERED: LIDOCAINE HCL 1% 20 ML VIAL ONE (06:34)
[2024-08-31] MEDS: ZOSYN 3.375GM +NS 50ML IVPB SCH (07:00)
[2024-08-31] MEDS ORDERED: MIDAZOLAM HCL 1 MG/ML 2ML VIAL ONE (07:39)
[2024-08-31] MEDS: LIDOCAINE HCL 1% 20 ML VIAL INJ ONE (08:00)
[2024-08-31] MEDS: ALBUMIN (HUMAN) 5% 250 ML IV ONE (09:56)
--- NOTE | 2024-08-31 10:26 | OP ---
DATE OF PROCEDURE: 08/31/2024 SURGEON: Surya Lim MD WEATHERIZATION COORDINATOR: None PREOPERATIVE DIAGNOSES: Left foot diabetic ulcers with abscess, cellulitis, gangrene, and osteomyelitis with forefoot necrotizing fasciitis. POSTOPERATIVE DIAGNOSES: Left foot diabetic ulcers with abscess, cellulitis, gangrene, and osteomyelitis with forefoot necrotizing fasciitis. PROCEDURE: Transmetatarsal amputation of left foot, partial medial cuneiformectomy, transfer of the extensor hallucis longus to the flexor hallucis longus tendon, complex layered primary wound closure of a highly modified 22 cm surgical incision. ANESTHESIA: Local, monitored anesthesia care, IV sedation. ESTIMATED BLOOD LOSS: Minimal. COMPLICATIONS: None. MATERIALS: 1/4-inch [place] drain, 2-0 Vicryl, 2-0 nylon, 2-0 Ethibond, Betadine, Adaptic, Betadine, 4 x 4s, dry 4 x 4s, ABDs, Kerlix, Benny bandage. PATHOLOGY: Deep soft tissue for aerobic and anaerobic culture, sensitivity, and grasping bone, medial cuneiform for histopathology. The patient tolerated anesthesia and procedure well and left the operating room in stable condition. INDICATIONS FOR SURGERY: The patient is a very pleasant 64-year-old diabetic male, presented to the emergency room with left foot diabetic ulcers to digits 2 through 5, having previously had a partial first ray amputation. He presented with gangrene ulcer, abscess, osteomyelitis, forefoot necrotizing fasciitis. The patient had an extensive bedside debridement yesterday. It was found necessary to proceed with further surgical intervention today at the transmetatarsal amputation level due to the severity of the gangrenous necrosis of his digits 2 through 5. SURGICAL PROCEDURE: Transmetatarsal amputation, right foot, medial cuneiform partial cuneiformectomy, transfer of the EHL tendon to the FHL tendon, complex layered primary wound closure, highly modified 22-cm surgical incision. The patient was brought into the operating room and placed on the operating room table in the usual supine position. After induction of monitored anesthesia care, local block was given with 30 mL of 50:50 mixture of 1% lidocaine plain and 0.5% Marcaine plain. The patient was then prepped and draped and scrubbed in the usual sterile manner. Tourniquet was applied, but not inflated during the surgical procedure. A dorsal to plantar fishmouth incision was made to the left foot. The incision had to be modified laterally due to the large amount of lateral dorsal and plantar forefoot necrosis. The incision was deepened down to the skin and subcutaneous tissues. Soft tissue attachments were freed to the level of the first metatarsal medial cuneiform joint dorsally. The extensor hallucis longus tendon freed from its insertion and retracted proximally for later transfer and repair. The knee was bent. The foot was placed in a plantigrade position on the table and the metatarsals were transected at the bases of 2, 3, 4, and 5. The first metatarsal medial cuneiform joint was disarticulated and a partial medial cuneiformectomy was performed and the portion of the medial cuneiform was sent for histopathology to rule out osteomyelitis. The knee was then bent, foot was repositioned. The plantar flap was freed from underlying soft tissue attachments to the level of the osteotomy cuts. Forefoot was disarticulated at this level. The flexor hallucis longus tendon was freed from its insertion, retracted proximally for later transfer and repair. Deep soft tissue cultures were taken. The wound was copiously flushed with Pulsavac lavage. There was noted to be extensive plantar flap necrosis centrally. The plantar flap central necrosis was sharply debrided with a rongeur; however, the liquefaction and hemorrhagic necrosis of the subcutaneous tissues was noted to be so severe that the central portion of the plantar flap was found not to be viable. A V-shaped incision was made ellipsing an area of central plantar flap necrosis 8 cm in length. The wound was again copiously flushed with Pulsavac lavage. Hemostasis was obtained. We used the Bovie and 2-0 Vicryl ties. The plantar flap medial portion was coapted to the dorsal skin. The lateral flap of the plantar flap was reapproximated to the dorsal skin. The extensor and flexor tendons, first ray were reapproximated. They were trimmed and they were anastomosed and transferred using 2-0 Ethibond. Complex layered primary wound closure of a highly modified plantar flap that had to be modified with an elliptical V incision to excise necrotic full-thickness tissue in the plantar flap was obtained with 12 2-0 Vicryl horizontal mattress sutures, 12 simple interrupted 2-0 nylon sutures, 12 2-0 nylon horizontal mattress sutures, one running interlocking 2-0 nylon continuous 22 cm stitch. Complex layered primary wound closure of the medial flap and the lateral flap to completely cover the transmetatarsal amputation site was successfully obtained. The incision site measured 22 cm in depth. A quarter-inch Eugenia drain was used for drainage distally medially, laterally, and plantarly. A dressing of Betadine, Adaptic, Betadine 4 x 4s, dry 4 x 4s, ABDs, Kerlix, and an Benny bandage was applied. The patient tolerated the anesthesia and procedure well and left the operating room in stable condition. TID: [id number] RECEIPT: [id number]
--- NOTE | 2024-08-31 10:39 | PN ---
[facility] PROGRESS NOTE Date of Service: Aug 31, 2024 Time of Service: 10:32 SUBJECTIVE: This is a 63-year-old male with underlying history of poorly controlled type 2 diabetes mellitus, peripheral arterial disease, prior history of right [id number] amputation in 2020 due to right foot gangrene and necrotizing fasciitis. Patient presented to the emergency room August 30, 2024, with a chronic wounds involving toes to the foot, that according to him over the last several weeks has been getting more necrotic and foul smelling. He also reported having fever and chills. On presentation to the hospital, patient was noted to be febrile with T-max of 100.0 F, heart rate of 102, blood pressure of 81/50. Labs [place] [address], hemoglobin of 10.3, platelet count of [id number]. BMP remarkable for sodium of 125, potassium 5.1, chloride of 90, BUN of 52, creatinine 2.0, blood glucose of 180, CK of 436 cardiac panel showed troponin of six. Patient admitted for further treatment and management of wet gangrene of the right foot with suspected chronic osteomyelitis of the toes. Patient received IV fluids and IV antibiotics. Consultation with Podiatry, Infectious Disease requested. 08/31 patient remains admitted to the PCU, BP 130/63, afebrile, saturating normal on room air. Leukocytosis improving, today WBC 14.9. Creatinine better at 1.6. Results of blood culture Gram-negative rods, positive in two of two sets. X- ray of the left foot status post interval amputation great toe, 2nd toe, 3rd toe with soft tissue edema subcutaneous emphysema overlying the 1st metatarsal, possible osteomyelitis of the 3rd and 4th proximal phalanx. Arterial ultrasound mild intimal wall thickening in both lower limb arteries, both lower limb arteries demonstrate biphasic waveform in all arteries other family left posterior tibial, anterior tibial and dorsalis pedis which demonstrate monophasic waveform, no flow-limiting stenosis. Renal ultrasound normal kidneys, no hydronephrosis, mild debris is noted in the urinary bladder, cystitis should be excluded. Patient on broad-spectrum IV antibiotics with Zosyn and linezolid, ID and podiatry consulted, input noted and appreciated. Cardiology consultation requested as the patient with peripheral arterial disease. We will follow input and recommendation. Renal ultrasound normal, no hydronephrosis, creatinine improving, nephrology consulted, we will follow input and recommendation. During my visit the patient is comfortable, back in the room from having debridement, eating lunch, tolerating well, getting good pain control with current medical management, at bedside, updated. REVIEW OF SYSTEMS CONSTITUTIONAL: fevers, chills, malaise, poor oral intake NEUROLOGICAL: Denies headache, amaurosis fugax, motor weakness, sensory deficit, vertigo/spinning sensation, gait abnormalities, or tremors. ENT: No hearing loss, otalgia, otorrhea, rhinitis, rhinorrhea, hoarseness, or sore throat. CARDIOVASCULAR: Denies any exertional angina, dyspnea on exertion, orthopnea, paroxysmal nocturnal dyspnea, palpitations, life-threatening arrhythmias, claudication. PULMONARY: Denies any shortness of breath, cough, phlegm/sputum, hemoptysis, pleuritic chest pain. SLEEP: Denies morning headaches, daytime somnolence or napping. Denies difficulty falling asleep, staying asleep, waking from sleep. Denies knowledge of snoring. GASTROINTESTINAL: Denies any type of dysphagia to either liquids or solids. Denies nausea, vomiting, pyrosis, early satiety, abdominal pain, diarrhea, constipation, or changes in stool consistency or caliber. Denies coffee-ground emesis, hematemesis, hematochezia, or melanotic stools. GENITOURINARY: Denies frequency, urgency, nocturia, hematuria or incontinence (Storage/Irritative symptoms.) Low urinary stream, straining to void, urinary intermittency or hesitancy, splitting of the voiding stream, terminal dribbling. ENDOCRINOLOGIC: Hx of type 2 Diabetes mellitus HEMATOLOGIC: Denies thrombophilia/previous clots, or coagulopathy/bleeding disorders. ONCOLOGIC: Denies personal history of malignancy. DERMATOLOGIC: foul smelling necrotic toes of the left foot with non healing wounds PSYCHIATRIC: Denies any suicidal or homicidal ideation. Denies hallucinations. PHYSICAL EXAM GENERAL APPEARANCE: The patient is awake, alert, and oriented, in no acute cardiopulmonary distress. NEUROLOGICAL: Cranial nerves II-XII grossly intact. Motor is 5/5 in bilateral upper and lower extremities proximal to distal. No sensory deficits. HEENT: Face is symmetric. Pupils are equal and reactive. Extraocular movements are intact. NECK: Supple. No JVD. No thyromegaly. No submental, submandibular, pre- /postauricular, occipital or supraclavicular lymphadenopathy. CHEST: Normal chest expansion. No Telemetry. LUNGS: Absence of any rales, rhonchi or any wheezing. CARDIOVASCULAR: Regular. S1 and S2 normal. No appreciable rubs, murmurs or gallops. ABDOMEN: Soft, nontender, and nondistended. There is no rebound, voluntary guarding, or rigidity. : Deferred. No Sandhu. EXTREMITIES: Left foot noted to have extremely foul-smelling wound with necrotic toes noted from 2nd two fifth digit, area of erythema and surrounding cellulitic changes noted Vital Signs (last 8hr) Date Time Temp Pulse Resp B/P (MAP) Pulse Ox O2 Delivery O2 Flow Rate FiO2 08/31/24 10:13 97.3 105 17 130/63 98 Room Air 08/31/24 10:08 108 16 129/79 97 Room Air 08/31/24 10:03 105 17 110/51 98 Room Air 08/31/24 09:58 104 16 131/69 97 Room Air 08/31/24 09:53 99 17 124/50 97 Room Air 08/31/24 09:48 87 17 88/45 97 Room Air 08/31/24 09:43 77 16 98/54 97 Room Air 08/31/24 09:38 80 17 101/53 97 Room Air 08/31/24 09:33 77 16 107/55 97 Room Air 08/31/24 09:28 77 16 112/61 98 Room Air 08/31/24 09:23 97.5 83 15 117/63 100 Nonrebreathing Mask 10.0 08/31/24 08:00 Room Air 08/31/24 03:42 99.1 87 20 122/62 100 Room Air LABS: Laboratory: Test 08/31/24 09:35 08/31/24 03:47 08/31/24 00:40 08/30/24 18:50 Range/Units Whole Blood Glucose 91 70-110 MG/DL White Blood Count 14.9 #H 4.8-10.8 K/uL Red Blood Count 3.02 L 4.50-6.20 MIL/uL Hemoglobin 9.0 L 14.0-18.0 g/dL Hematocrit 26.8 L 42-54 % Mean Corpuscular Volume 88.7 79-99 fL Mean Corpuscular Hemoglobin 29.8 27.0-33.0 pg Mean Corpuscular Hemoglobin Concent 33.6 32.0-36.0 g/dL Red Cell Distribution Width 12.5 11.0-15.5 % Platelet Count 246 130-400 K/uL Mean Platelet Volume 10.1 7.5-10.5 fL Immature Granulocyte % (Auto) 0.9 0-1 % Neutrophils (%) (Auto) 86.4 H 40.0-77.0 % Lymphocytes (%) (Auto) 4.3 L 21.0-51.0 % Monocytes (%) (Auto) 8.3 3.0-13.0 % Eosinophils (%) (Auto) 0.0 0.0-8.0 % Basophils (%) (Auto) 0.1 0.0-5.0 % Neutrophils # (Auto) 12.9 H 1.8-7.7 K/uL Lymphocytes # (Auto) 0.6 L 1.0-4.8 K/uL Monocytes # (Auto) 1.2 H 0.1-1.0 K/uL Eosinophils # (Auto) 0.00 0.00-0.70 K/uL Basophils # (Auto) 0.02 0.00-0.20 K/uL Absolute Immature Granulocyte (auto 0.13 0-1 K/uL Nucleated Red Blood Cells 0.0 0.0-0.19 % Sodium Level 130 L 136-145 mmol/L Potassium Level 3.9 3.5-5.1 mmol/L Chloride Level 97 L 101-111 mmol/L Carbon Dioxide Level 27 21-32 mmol/L Blood Urea Nitrogen 38 H 7-18 mg/dL Creatinine 1.6 H 0.5-1.3 mg/dL Glomerular Filtration Rate Calc 47 >90 mL/min Random Glucose 134 H 70-105 mg/dL Total Calcium 7.9 L 8.5-10.1 mg/dL Magnesium Level 2.20 1.80-2.40 mg/dL Total Bilirubin 0.6 # 0.2-1.0 mg/dL Aspartate Amino Transf (AST/SGOT) 22 10-37 U/L Alanine Aminotransferase (ALT/SGPT) 16 12-78 U/L Alkaline Phosphatase 54 50-136 U/L Total Creatine Kinase 247 #H 21-232 U/L Total Protein 6.5 6.0-8.3 g/dL Albumin 2.1 #L 3.5-5.0 g/dL Urine Color YELLOW YELLOW Urine Appearance CLOUDY H CLEAR Urine pH 5.0 5.0-8.0 Urine Specific [place] 1.014 1.001-1.031 Urine Protein NEGATIVE NEGATIVE mg/dL Urine Glucose (UA) 200 H NEGATIVE mg/dL Urine Ketones 5 H NEGATIVE mg/dL Urine Occult Blood +- (TRACE) H NEGATIVE Urine Nitrate NEGATIVE NEGATIVE Urine Bilirubin NEGATIVE NEGATIVE mg/dL Urine Urobilinogen 0.2 0.2-1.0 mg/dL Urine Leukocyte Esterase 500 H NEGATIVE Gissel/uL Urine RBC 6-10 H 0-1 /HPF Urine WBC 26-50 H 0-1 /HPF Urine WBC Clumps (Auto) MANY 0-1 /HPF Urine Squamous Epithelial Cells FEW 0-2 /HPF Urine Bacteria MANY None Seen /HPF Urine Hyaline Casts 2-5 H 0-1 /LPF /LPF Urine Random Creatinine 69.01 30-135 mg/dL Urine Random Sodium 28 L 40-220 mmol/l Urine Opiates Screen NEGATIVE NEGATIVE Urine Barbiturates Screen NEGATIVE NEGATIVE Urine Phencyclidine Screen NEGATIVE NEGATIVE Urine Amphetamines Screen NEGATIVE NEGATIVE Urine Benzodiazepines Screen NEGATIVE NEGATIVE Urine Cocaine Screen NEGATIVE NEGATIVE Urine Marijuana (THC) Screen NEGATIVE NEGATIVE Lactic Acid Level 1.5 0.8-2.5 mmol/L Test 08/30/24 15:13 Range/Units White Cell Morphology Comment See comments Erythrocyte Sedimentation Rate 113 H 0-20 MM/HR Prothrombin Time 11.9 H 9.6-11.6 SEC Prothromb Time International Ratio 1.14 0.85-1.15 Activated Partial Thromboplast Time 34.4 26.3-35.5 SEC Hemoglobin A1c 7.7 H 4.0-6.0 % Estimated Average Glucose (eAG) 174 H 70-126 mg/dL Direct Bilirubin 0.3 0.0-0.3 mg/dL Lactate Dehydrogenase 126 81-234 U/L Troponin I High Sensitivity 6 4-75 ng/L C-Reactive Protein, Quantitative 122.20 H 0.5-3.0 mg/L Procalcitonin 5.13 H 0.05-0.5 ng/mL Thyroid Stimulating Hormone (TSH) 0.86 # 0.36-3.74 uIU/mL Current Medications Medications (Trade) Dose Ordered Sig/Nathaly Route PRN Reason Start Time Stop Time Status Last Admin Dose Admin Acetaminophen (TYLenol 325MG TAB) 650 mg Q6H PRN PO MILD PAIN (1-3) 08/30/24 17:30 09/29/24 17:29 Dextrose (D50w) 50 ml AD PRN IV HYPOGLYCEMIA PROTOCOL 08/30/24 18:00 09/29/24 17:59 Glucagon (Glucagon 1mg Kit) 1 mg AD PRN IM HYPOGLYCEMIA PROTOCOL 08/30/24 18:00 09/29/24 17:59 Hydromorphone HCl (DiLAUDid 0.5MG INJ) 0.2 mg Q6H PRN IVP SEVERE PAIN (7-10) 08/30/24 17:30 09/04/24 17:29 Insulin Human Regular (humuLIN R 100 UNIT/ML 3ML) INSULIN SLIDING SCAL... ACHS SQ 08/30/24 21:00 09/29/24 20:59 08/30/24 22:06 2 UNIT Linezolid 300 ml @ 150 mls/hr Q12H IV 08/30/24 18:00 08/30/24 17:37 DC Linezolid 300 ml @ 150 mls/hr Q12H IV 08/30/24 20:00 09/09/24 19:59 08/30/24 20:23 150 MLS/HR Ondansetron HCl (zoFRAN 4MG INJ) 4 mg Q6H PRN IVP NAUSEA/VOMITING 08/30/24 17:30 09/29/24 17:29 Pharmacy Profile Note (Pharmacy Communication) 1 each ONCE MISC 08/30/24 17:30 09/06/24 17:29 08/30/24 17:56 1 EACH Piperacillin Sod/ Tazobactam Sod (Zosyn 3.375gm+NS 50ml) 3.375 gm Q12H IVPB 08/30/24 21:00 08/31/24 06:42 DC 08/30/24 23:06 3.375 GM Piperacillin Sod/ Tazobactam Sod (Zosyn 3.375gm+NS 50ml) 3.375 gm Q8H IVPB 08/31/24 07:00 09/09/24 20:59 Sodium Chloride 1,000 ml @ 75 mls/hr [id number] IV 08/30/24 20:00 09/29/24 19:59 08/30/24 20:23 75 MLS/HR Thiamine HCl (Vitamin B-1) 100 mg Q24H IVP 08/30/24 18:00 09/03/24 18:00 08/30/24 18:30 100 MG DIAGNOSTICS / RADIOLOGY: [ ] ASSESSMENT: Sepsis, POA Blood culture positive for Gram-negative rods Gas/wet gangrene of the left foot with extensively necrotic toes and underlying acute osteo-myelitis of multiple toes, POA Sepsis, POA, (complicated soft tissue infection of the left foot with underlying osteomyelitis) Poorly controlled type 2 diabetes mellitus, POA Acute renal failure, POA Acute rhabdomyolysis, POA Anemia, POA Significant leukocytosis secondary to underlying septicemia, POA Moderate hyponatremia, POA PLAN: Patient remains admitted to the PCU Continue supportive care with IV fluids Broad-spectrum antibiotics with IV linezolid/Zosyn Continue to follow podiatry and ID input and recommendations. Follow results of septic workup and adjust antibiotics accordingly Arterial Doppler with a peripheral arterial disease, consultation requested, follow input and recommendation Renal ultrasound reviewed, normal kidneys, no hydronephrosis, creatinine improving, nephrology consulted, follow input and recommendation Pain control with low-dose IV hydromorphone 0.2 mg q.6 hours p.r.n. NEURO: Minimize central acting medications as possible. Fall Precautions. Well lighted room through the day and minimize interruptions through the night to prevent acute delirium. PULMONARY: Supplemental 02 as needed BiPAP as necessary, for respiratory distress Titrate Fio2 to keep Spo2 > or = 90% DuoNebs and CPT as needed IS hourly while awake for pulmonary hygiene prn Out of bed to chair as tolerated Maintain aspiration precautions at all times CARDIOVASCULAR: Follow hemodynamics. Vital signs per facility protocol GI & NUTRITION: Continue nutritional support Aspirations precautions Prokinetic agents and laxatives as needed KIDNEYS & ELECTROLYTES: Strict monitoring of intake and output Daily weights Avoid nephrotoxic agents Monitor electrolytes and replace as needed Goal urine output of 30mL/hr or 0.5mL/kg/hr Medications to be dosed according to renal function. Avoid contrast if possible ENDOCRINE: Maintain blood glucose between 100-180 at all times. Insulin sliding scale for blood glucose management Hypoglycemia and hyperglycemia protocol in place INFECTIOUS DISEASE: Trend temperature, WBC and procalcitonin level Follow cultures, deescalate antibiotics as soon as possible. Panculture if new onset fever HEMATOLOGY & COAGULATION: Monitor H&H. Keep Hgb > 7 Transfuse 1 unit of PRBC for Hgb < 7 Transfuse 1 pack of platelets of platelets < 20, 000 Watch for any signs and symptoms of bleeding SKIN: Pressure ulcer prevention per facility protocol Specialty mattress as needed ORTHO/REHAB Continue PT/OT PRN: MEDICATIONS Tylenol 650 mg po every 4 hrs for fever zofran 4 mg IV every 6 hrs for n/v Hydralazine 5 mg IV every 4 hrs systolic pressure > 160 bowel regiment: lactulose 20 gm PO BID PRN constipation Supportive measures: Continue GI and DVT prophylaxis Disposition: Pending improvement in clinical condition All questions answered time spent: > 35 min JERO RICHARDS MD Aug 31, 2024 10:39
--- NOTE | 2024-08-31 12:44 | CONS ---
Cardiac Consult Note CONSULT NOTE DATE OF SERVICE: Aug 30, 2024 at 14:39 REFERRING PROVIDER: CHARIS OROSCO MD REASON FOR CONSULT: [] Probable PAD HPI: [] 63-year-old male with a prior history of peripheral arterial disease with prior right fltvv-pkh-kvwp amputation in 2020 who was admitted for chronic wounds involving the toes of his left foot and has subsequently undergone transmetatarsal amputation by Dr. Lim this morning and we have been asked to see patient regarding arterial Doppler flow studies which reveal monophasic waveforms involving his infrapopliteal vessels on the left with no obstructive lesions noted. Patient has also documented to have acute renal failure with a creatinine of 2.0 on admission which is subsequently down to 1.6. Patient did present febrile. Patient did present with a leukocytosis. Patient currently denies any chest pain. Initial cardiac high sensitivity troponin was 6. Patient currently denies any chest pain pressure tightness. He denies any prior myocardial infarction or stroke. ROS: Pertinent positives and negatives as described above. PMHX: [] Diabetes mellitus PID Prior right [id number] amputation PSHX: [] Right [id number] amputation FH: [] Noncontributory SOCIAL: [] Denies tobacco alcohol or illicit drug use PHYSICAL EXAMINATION: GENERAL: No acute distress. Delayed responses disheveled evidence of alopecia HEENT: Normocephalic, atraumatic. CARDIAC: Positive S1 and S2. Distant heart sounds LUNGS: Clear to auscultation bilaterally. ABDOMEN: Bowel sounds present, soft, nontender. EXTREMITIES: Right ktjgt-[id number] amputation with evidence of left foot being bandaged after left transmetatarsal amputation NEUROLOGIC: Cranial nerves 2-12 grossly intact. PSYCHIATRIC: Calm. ASSESSMENT: [] Gas/wet gangrene left foot with osteomyelitis Status post left transmetatarsal amputation Acute renal failure Abnormal arterial Dopplers revealing monophasic waveforms left lower extremity PLAN: At this time with the patient's renal function I would be hesitant to proceed with any invasive procedures but I think the best test for this patient if his renal function does normalize would be did perform a CT angiogram of the abdominal aorta with left lower extremity runoff considering patient's arterial Dopplers did not reveal any elevated velocities suggestive of significant peripheral arterial disease. Waveforms were indeed monophasic but I would like to wait and see how patient responds to IV antibiotics before any invasive studies are performed. We will follow remotely and do not plan on any invasive procedures being done this weekend. Thank you [] Vital Signs 08/30/24 08/30/24 08/30/24 08/30/24 14:40 15:54 17:00 18:00 Temp 100.0 99.9 99.9 Pulse 102 78 74 83 Resp 20 18 18 16 B/P (MAP) 81/50 94/52 101/63 114/57 Pulse Ox 99 98 99 100 O2 Delivery Room Air* Room Air* Room Air* O2 Flow Rate 0 0 0 0 FiO2 21 21 21 08/30/24 08/30/24 08/30/24 08/30/24 19:00 20:00 21:00 23:00 Temp 99.0 98.8 98.2 98.6 Pulse 81 79 77 75 Resp 16 16 16 16 B/P (MAP) 110/54 133/44 110/59 104/55 Pulse Ox 99 99 99 97 O2 Delivery Room Air* Room Air* Room Air* Room Air* O2 Flow Rate 0 0 0 0 FiO2 21 21 21 21 08/30/24 08/31/24 08/31/24 08/31/24 23:54 00:30 03:42 08:00 Temp 98.4 99.1 Pulse 87 87 Resp 21 20 B/P (MAP) 114/61 122/62 Pulse Ox 98 98 100 O2 Delivery Room Air Room Air* Room Air Room Air O2 Flow Rate 0 FiO2 21 08/31/24 08/31/24 08/31/24 08/31/24 09:23 09:28 09:33 09:38 Temp 97.5 Pulse 83 77 77 80 Resp 15 16 16 17 B/P (MAP) 117/63 112/61 107/55 101/53 Pulse Ox 100 98 97 97 O2 Delivery Nonrebreathing Mask Room Air Room Air Room Air O2 Flow Rate 10.0 08/31/24 08/31/24 08/31/24 08/31/24 09:43 09:48 09:53 09:58 Pulse 77 87 99 104 Resp 16 17 17 16 B/P (MAP) 98/54 88/45 124/50 131/69 Pulse Ox 97 97 97 97 O2 Delivery Room Air Room Air Room Air Room Air 08/31/24 08/31/24 08/31/24 10:03 10:08 10:13 Temp 97.3 Pulse 105 108 105 Resp 17 16 17 B/P (MAP) 110/51 129/79 130/63 Pulse Ox 98 97 98 O2 Delivery Room Air Room Air Room Air Laboratory Tests Test 08/30/24 15:13 08/30/24 18:50 08/30/24 21:24 08/31/24 00:40 White Blood Count 21.4 K/uL (4.8-10.8) Red Blood Count 3.46 MIL/uL (4.50-6.20) Hemoglobin 10.3 g/dL (14.0-18.0) Hematocrit 30.5 % (42-54) Mean Corpuscular Volume 88.2 fL (79-99) Mean Corpuscular Hemoglobin 29.8 pg (27.0-33.0) Mean Corpuscular Hemoglobin Concent 33.8 g/dL (32.0-36.0) Red Cell Distribution Width 12.7 % (11.0-15.5) Platelet Count 313 K/uL (130-400) Mean Platelet Volume 10.2 fL (7.5-10.5) Immature Granulocyte % (Auto) 0.9 % (0-1) Neutrophils (%) (Auto) 87.9 % (40.0-77.0) Lymphocytes (%) (Auto) 4.7 % (21.0-51.0) Monocytes (%) (Auto) 6.4 % (3.0-13.0) Eosinophils (%) (Auto) 0.0 % (0.0-8.0) Basophils (%) (Auto) 0.1 % (0.0-5.0) Neutrophils # (Auto) 18.8 K/uL (1.8-7.7) Lymphocytes # (Auto) 1.0 K/uL (1.0-4.8) Monocytes # (Auto) 1.4 K/uL (0.1-1.0) Eosinophils # (Auto) 0.00 K/uL (0.00-0.70) Basophils # (Auto) 0.02 K/uL (0.00-0.20) Absolute Immature Granulocyte (auto 0.20 K/uL (0-1) Nucleated Red Blood Cells 0.0 % (0.0-0.19) White Cell Morphology Comment See comments Erythrocyte Sedimentation Rate 113 MM/HR (0-20) Prothrombin Time 11.9 SEC (9.6-11.6) Prothromb Time International Ratio 1.14 (0.85-1.15) Activated Partial Thromboplast Time 34.4 SEC (26.3-35.5) Sodium Level 125 mmol/L (136-145) Potassium Level 5.1 mmol/L (3.5-5.1) Chloride Level 90 mmol/L (101-111) Carbon Dioxide Level 24 mmol/L (21-32) Blood Urea Nitrogen 52 mg/dL (7-18) Creatinine 2.0 mg/dL (0.5-1.3) Glomerular Filtration Rate Calc 36 mL/min (>90) Random Glucose 180 mg/dL (70-105) Hemoglobin A1c 7.7 % (4.0-6.0) Estimated Average Glucose (eAG) 174 mg/dL (70-126) Lactic Acid Level 2.5 mmol/L (0.8-2.5) 1.5 mmol/L (0.8-2.5) Total Calcium 8.7 mg/dL (8.5-10.1) Total Bilirubin 0.8 mg/dL (0.2-1.0) Direct Bilirubin 0.3 mg/dL (0.0-0.3) Aspartate Amino Transf (AST/SGOT) 31 U/L (10-37) Alanine Aminotransferase (ALT/SGPT) 19 U/L (12-78) Alkaline Phosphatase 66 U/L (50-136) Lactate Dehydrogenase 126 U/L (81-234) Total Creatine Kinase 436 U/L (21-232) Troponin I High Sensitivity 6 ng/L (4-75) C-Reactive Protein, Quantitative 122.20 mg/L (0.5-3.0) Total Protein 7.8 g/dL (6.0-8.3) Albumin 2.8 g/dL (3.5-5.0) Procalcitonin 5.13 ng/mL (0.05-0.5) Thyroid Stimulating Hormone (TSH) 0.86 uIU/mL (0.36-3.74) Whole Blood Glucose 196 MG/DL (70-110) Urine Color YELLOW (YELLOW) Urine Appearance CLOUDY (CLEAR) Urine pH 5.0 (5.0-8.0) Urine Specific [place] 1.014 (1.001-1.031) Urine Protein NEGATIVE mg/dL (NEGATIVE) Urine Glucose (UA) 200 mg/dL (NEGATIVE) Urine Ketones 5 mg/dL (NEGATIVE) Urine Occult Blood +- (TRACE) (NEGATIVE) Urine Nitrate NEGATIVE (NEGATIVE) Urine Bilirubin NEGATIVE mg/dL (NEGATIVE) Urine Urobilinogen 0.2 mg/dL (0.2-1.0) Urine Leukocyte Esterase 500 Gissel/uL (NEGATIVE) Urine RBC 6-10 /HPF (0-1) Urine WBC 26-50 /HPF (0-1) Urine WBC Clumps (Auto) MANY /HPF (0-1) Urine Squamous Epithelial Cells FEW /HPF (0-2) Urine Bacteria MANY /HPF (None Seen) Urine Hyaline Casts 2-5 /LPF (0-1 /LPF) Urine Random Creatinine 69.01 mg/dL (30-135) Urine Random Sodium 28 mmol/l (40-220) Urine Opiates Screen NEGATIVE (NEGATIVE) Urine Barbiturates Screen NEGATIVE (NEGATIVE) Urine Phencyclidine Screen NEGATIVE (NEGATIVE) Urine Amphetamines Screen NEGATIVE (NEGATIVE) Urine Benzodiazepines Screen NEGATIVE (NEGATIVE) Urine Cocaine Screen NEGATIVE (NEGATIVE) Urine Marijuana (THC) Screen NEGATIVE (NEGATIVE) Test 08/31/24 03:47 08/31/24 05:06 08/31/24 09:35 08/31/24 11:49 White Blood Count 14.9 K/uL (4.8-10.8) Red Blood Count 3.02 MIL/uL (4.50-6.20) Hemoglobin 9.0 g/dL (14.0-18.0) Hematocrit 26.8 % (42-54) Mean Corpuscular Volume 88.7 fL (79-99) Mean Corpuscular Hemoglobin 29.8 pg (27.0-33.0) Mean Corpuscular Hemoglobin Concent 33.6 g/dL (32.0-36.0) Red Cell Distribution Width 12.5 % (11.0-15.5) Platelet Count 246 K/uL (130-400) Mean Platelet Volume 10.1 fL (7.5-10.5) Immature Granulocyte % (Auto) 0.9 % (0-1) Neutrophils (%) (Auto) 86.4 % (40.0-77.0) Lymphocytes (%) (Auto) 4.3 % (21.0-51.0) Monocytes (%) (Auto) 8.3 % (3.0-13.0) Eosinophils (%) (Auto) 0.0 % (0.0-8.0) Basophils (%) (Auto) 0.1 % (0.0-5.0) Neutrophils # (Auto) 12.9 K/uL (1.8-7.7) Lymphocytes # (Auto) 0.6 K/uL (1.0-4.8) Monocytes # (Auto) 1.2 K/uL (0.1-1.0) Eosinophils # (Auto) 0.00 K/uL (0.00-0.70) Basophils # (Auto) 0.02 K/uL (0.00-0.20) Absolute Immature Granulocyte (auto 0.13 K/uL (0-1) Nucleated Red Blood Cells 0.0 % (0.0-0.19) Sodium Level 130 mmol/L (136-145) Potassium Level 3.9 mmol/L (3.5-5.1) Chloride Level 97 mmol/L (101-111) Carbon Dioxide Level 27 mmol/L (21-32) Blood Urea Nitrogen 38 mg/dL (7-18) Creatinine 1.6 mg/dL (0.5-1.3) Glomerular Filtration Rate Calc 47 mL/min (>90) Random Glucose 134 mg/dL (70-105) Total Calcium 7.9 mg/dL (8.5-10.1) Magnesium Level 2.20 mg/dL (1.80-2.40) Total Bilirubin 0.6 mg/dL (0.2-1.0) Aspartate Amino Transf (AST/SGOT) 22 U/L (10-37) Alanine Aminotransferase (ALT/SGPT) 16 U/L (12-78) Alkaline Phosphatase 54 U/L (50-136) Total Creatine Kinase 247 U/L (21-232) Total Protein 6.5 g/dL (6.0-8.3) Albumin 2.1 g/dL (3.5-5.0) Whole Blood Glucose 127 MG/DL (70-110) 91 MG/DL (70-110) 104 MG/DL (70-110) Current Medications Medications Dose Ordered Sig/Nathaly Route PRN Reason Start Time Stop Time Status Last Admin Vancomycin HCl 1 gm ONCE ONCE IV 08/30/24 17:00 08/30/24 17:01 DC 08/30/24 16:59 Piperacillin Sod/ Tazobactam Sod 3.375 gm ONCE ONCE IV 08/30/24 17:00 08/30/24 17:01 DC 08/30/24 16:53 Sodium Chloride 1,497 ml @ 499 mls/hr ONCE ONCE IV 08/30/24 17:00 08/30/24 19:59 DC 08/30/24 16:58 Piperacillin Sod/ Tazobactam Sod 3.375 gm Q12H IVPB 08/30/24 21:00 08/31/24 06:42 DC 08/30/24 23:06 Sodium Chloride 1,000 ml @ 75 mls/hr [id number] IV 08/30/24 20:00 09/29/24 19:59 08/30/24 20:23 Pharmacy Profile Note 1 each ONCE MISC 08/30/24 17:30 09/06/24 17:29 08/30/24 17:56 Insulin Human Regular INSULIN SLIDING SCAL... ACHS SQ 08/30/24 21:00 09/29/24 20:59 08/30/24 22:06 Linezolid 300 ml @ 150 mls/hr Q12H IV 08/30/24 18:00 08/30/24 17:37 DC Linezolid 300 ml @ 150 mls/hr Q12H IV 08/30/24 20:00 09/09/24 19:59 08/30/24 20:23 Thiamine HCl 100 mg Q24H IVP 08/30/24 18:00 09/03/24 18:00 08/30/24 18:30 Lidocaine HCl 20 ml STK-MED ONCE .ROUTE 08/31/24 06:34 08/31/24 06:35 DC Bupivacaine HCl 5 mg STK-MED ONCE .ROUTE 08/31/24 06:35 08/31/24 06:35 DC Piperacillin Sod/ Tazobactam Sod 3.375 gm Q8H IVPB 08/31/24 07:00 09/09/24 20:59 Propofol 100 ml @ As Directed STK-MED ONCE IV 08/31/24 07:38 08/31/24 07:38 DC Ketamine HCl 50 mg STK-MED ONCE .ROUTE 08/31/24 07:38 08/31/24 07:39 DC Midazolam HCl 2 mg STK-MED ONCE .ROUTE 08/31/24 07:39 08/31/24 07:40 DC Phenylephrine HCl 10 mg STK-MED ONCE IV 08/31/24 08:10 08/31/24 08:10 DC Lidocaine HCl 20 ml STK-MED ONCE INJ 08/31/24 08:00 08/31/24 08:28 DC 08/31/24 08:00 Bupivacaine HCl 75 mg STK-MED ONCE INJ 08/31/24 08:00 08/31/24 08:28 DC 08/31/24 08:00 Ephedrine Sulfate 50 mg STK-MED ONCE .ROUTE 08/31/24 09:48 08/31/24 09:48 DC 08/31/24 09:56 Albumin Human 250 ml @ As Directed STK-MED ONCE IV 08/31/24 09:49 08/31/24 09:49 DC 08/31/24 09:56 Active Scripts Metformin HCl (Metformin HCl) 1,000 Mg Tablet, 1000 MG PO BIDMEALS, #60 TAB 0 Refills Prov:SERA BRIDGES MD 01/05/21 CHARIS OROSCO MD Aug 31, 2024 12:44
--- NOTE | 2024-08-31 14:00 | CONS ---
NEPHROLOGY CONSULTATION NOTE Date/Time Patient Seen: Aug 31, 2024 1310 Reason for Consultation: Renal Failure HISTORY OF PRESENT ILLNESS: This is a 63-year-old male with underlying history of poorly controlled type 2 diabetes mellitus, peripheral arterial disease, prior history of right below- the-knee amputation in 2020 due to right foot gangrene and necrotizing fasciitis. He presented to emergency room for evaluation of left foot wounds. S/p left TMA by Dr. Lim He continues to be followed by Cardiology, pending recommendations He was noted to have worsening elevated BUN/creatinine We have been consulted for renal failure. Renal function remains elevated Electrolytes are stable Hemoglobin has remained stable UA was negative Renal ultrasound showed normal kidneys with no hydronephrosis. He continues on antibiotics Blood cultures are positive for Gram-negative rods He was seen in the medical floor, in no acute distress Family at the bedside Prognosis remains guarded REVIEW OF SYSTEMS: GENERAL: Positive for left foot wound. NEUROLOGIC: Negative for any blurry vision, blind spots, double vision, facial asymmetry, dysphagia, dysarthria, hemiparesis, hemisensory deficits, vertigo, ataxia. HEENT: Negative for any head trauma, neck trauma, neck stiffness, photophobia, phonophobia, sinusitis, rhinitis. CARDIAC: Negative for any chest pain, dyspnea on exertion, paroxysmal nocturnal dyspnea, peripheral edema. PULMONARY: Negative for any shortness of breath, wheezing, COPD, or TB exposure. GASTROINTESTINAL: Negative for any abdominal pain, nausea, vomiting, bright red blood per rectum, melena. GENITOURINARY: Negative for any dysuria, hematuria, incontinence. INTEGUMENTARY: Negative for any rashes, cuts, insect bites. RHEUMATOLOGIC: Negative for any joint pains, photosensitive rashes, history of vasculitis or kidney problems. HEMATOLOGIC: Negative for any abnormal bruising, frequent infections or bleeding. PAST MEDICAL HISTORY: Poorly controlled type 2 diabetes mellitus, peripheral arterial disease, right foot gangrene and necrotizing fasciitis, anemia PAST SURGICAL HISTORY: Right [id number]-[id number] amputation in 2020 Left TMA PAST SOCIAL HISTORY: Denies use of alcohol, tobacco or illicit drugs FAMILY HISTORY: Noncontributory PHYSICAL EXAM: GENERAL: Alert and oriented x 3. No acute distress. Well-nourished. EYES: EOMI. Anicteric. HENT: Moist mucous membranes. No scleral icterus. No cervical lymphadenopathy. LUNGS: Clear to auscultation bilaterally. No accessory muscle use. CARDIOVASCULAR: Regular rate and rhythm. No murmur. No JVD. ABDOMEN: Soft, non-tender and non-distended. No palpable masses. EXTREMITIES: No edema. Non-tender. Right BKA, left TMA SKIN: No rashes or lesions. Warm. NEUROLOGIC: No focal neurological deficits. CN II-XII grossly intact, but not individually tested. PSYCHIATRIC: Cooperative. Appropriate mood and affect. MEDICATIONS: [ ] Current Medications Medications (Trade) Dose Ordered Sig/Nathaly Route PRN Reason Start Time Stop Time Status Last Admin Dose Admin Acetaminophen (TYLenol 325MG TAB) 650 mg Q6H PRN PO MILD PAIN (1-3) 08/30/24 17:30 09/29/24 17:29 Dextrose (D50w) 50 ml AD PRN IV HYPOGLYCEMIA PROTOCOL 08/30/24 18:00 09/29/24 17:59 Glucagon (Glucagon 1mg Kit) 1 mg AD PRN IM HYPOGLYCEMIA PROTOCOL 08/30/24 18:00 09/29/24 17:59 Hydromorphone HCl (DiLAUDid 0.5MG INJ) 0.2 mg Q6H PRN IVP SEVERE PAIN (7-10) 08/30/24 17:30 09/04/24 17:29 Insulin Human Regular (humuLIN R 100 UNIT/ML 3ML) INSULIN SLIDING SCAL... ACHS SQ 08/30/24 21:00 09/29/24 20:59 08/30/24 22:06 2 UNIT Linezolid 300 ml @ 150 mls/hr Q12H IV 08/30/24 18:00 08/30/24 17:37 DC Linezolid 300 ml @ 150 mls/hr Q12H IV 08/30/24 20:00 09/09/24 19:59 08/30/24 20:23 150 MLS/HR Ondansetron HCl (zoFRAN 4MG INJ) 4 mg Q6H PRN IVP NAUSEA/VOMITING 08/30/24 17:30 09/29/24 17:29 Pharmacy Profile Note (Pharmacy Communication) 1 each ONCE MISC 08/30/24 17:30 09/06/24 17:29 08/30/24 17:56 1 EACH Piperacillin Sod/ Tazobactam Sod (Zosyn 3.375gm+NS 50ml) 3.375 gm Q12H IVPB 08/30/24 21:00 08/31/24 06:42 DC 08/30/24 23:06 3.375 GM Piperacillin Sod/ Tazobactam Sod (Zosyn 3.375gm+NS 50ml) 3.375 gm Q8H IVPB 08/31/24 07:00 09/09/24 20:59 Sodium Chloride 1,000 ml @ 75 mls/hr [id number] IV 08/30/24 20:00 09/29/24 19:59 08/30/24 20:23 75 MLS/HR Thiamine HCl (Vitamin B-1) 100 mg Q24H IVP 08/30/24 18:00 09/03/24 18:00 08/30/24 18:30 100 MG Vital Signs (last 8hr) Date Time Temp Pulse Resp B/P (MAP) Pulse Ox O2 Delivery O2 Flow Rate FiO2 08/31/24 10:13 97.3 105 17 130/63 98 Room Air 08/31/24 10:08 108 16 129/79 97 Room Air 08/31/24 10:03 105 17 110/51 98 Room Air 08/31/24 09:58 104 16 131/69 97 Room Air 08/31/24 09:53 99 17 124/50 97 Room Air 08/31/24 09:48 87 17 88/45 97 Room Air 08/31/24 09:43 77 16 98/54 97 Room Air 08/31/24 09:38 80 17 101/53 97 Room Air 08/31/24 09:33 77 16 107/55 97 Room Air 08/31/24 09:28 77 16 112/61 98 Room Air 08/31/24 09:23 97.5 83 15 117/63 100 Nonrebreathing Mask 10.0 08/31/24 08:00 Room Air DIAGNOSTICS / RADIOLOGY: PATIENT: CHADD MAGDALENO MR#: [id number] : 1960 SEX: M AGE: 63 LOCATION: [facility] ORDER 37 STATUS: ADM IN REPORT#: [id number] SERVICE 34 REASON: rule out any significant lung infiltrates, sepsis, foot infection ORDERING PHYSICIAN: BRAULIO BRIDGES MD PROCEDURE: CXR1VW - CHEST 1VW EXAM: CR Chest, 1 View. CLINICAL HISTORY: rule out any significant lung infiltrates, sepsis, foot infection COMPARISON: 05/02/2017 FINDINGS: LUNGS: There is no mass, infiltrate, or acute pulmonary abnormality. PLEURAL SPACES: No pleural effusion or pneumothorax. MEDIASTINUM: Cardiac size and mediastinal contours within normal limits. BONES: No aggressive appearing osseous lesion seen. IMPRESSION: No acute cardiopulmonary pathology is evident. /[place] DICTATED BY: PATRICIA LAWSON MD DATE: 08/30/242003 REASON: acute renal failure, uncontrolled DM II ORDERING PHYSICIAN: BRAULIO BRIDGES MD PROCEDURE: RENAL - US RENAL SONOGRAM EXAMINATION: Renal ultrasound. COMPARISON: None provided. HISTORY: acute renal failure, uncontrolled DM II FINDINGS: The right kidney measures 9.9 cm and is normal in echotexture. The left kidney measures 9.2 cm and is normal in echotexture. There are no focal renal lesions. There are no renal stones. There is no hydronephrosis. There is mild debris noted in the urinary bladder. Cystitis should be excluded. IMPRESSION: Normal kidneys. No hydronephrosis Mild debris noted in the urinary bladder. Cystitis should be excluded. /[place] DICTATED BY: PATRICIA LAWSON MD DATE: 08/30/242022 PATIENT: CHADD MAGDALENO MR#: [id number] : 1960 SEX: M AGE: 63 LOCATION: [facility] ORDER 23 STATUS: ADM IN REPORT#: [id number] SERVICE 171 REASON: non healing left foot wound with necrotic toes, assess for severe PAD ORDERING PHYSICIAN: BRAULIO BRIDGES MD PROCEDURE: ART B LE - US ARTERIAL BILAT LOW EXT DUPL EXAMINATION: DUPLEX ULTRASOUND EXAMINATION OF THE BILATERAL LOWER EXTREMITY ARTERIES. CLINICAL HISTORY: Non-healing wound in the left, to assess for peripheral arterial disease. COMPARISON: Lower extremity arterial doppler dated 12/29/2020. FINDINGS: Peak systolic velocities within the right lower arteries are as follows: Common femoral artery: 56 cm/s. Superficial femoral artery: 55 cm/s at proximal, 71 cm/s at mid, and 50 cm/s at distal segments. Popliteal artery: 28 cm/s at proximal and 37 cm/s at distal segments. The right lower limb arteries demonstrate biphasic waveforms in all arteries. The below knee arteries are not assessed, post amputation status. Peak systolic velocities within the left lower arteries are as follows: Common femoral artery: 66 cm/s. Superficial femoral artery: 71 cm/s at proximal, 72 cm/s at mid, and 72 cm/s at distal segments. Popliteal artery: 56 cm/s at proximal and 55 cm/s at distal segments. Posterior tibial artery: 30 cm/s. Anterior tibial artery: 47 cm/s. Dorsalis pedis artery: 67 cm/s. The left lower limb arteries demonstrate biphasic waveforms in all arteries other than posterior tibial, anterior tibial, and dorsalis pedis arteries which demonstrate monophasic waveforms. There is intimal wall thickening in both lower limb arteries. IMPRESSION: Mild intimal wall thickening in both the lower limb arteries. Both lower limb arteries demonstrate biphasic waveforms in all arteries other than left posterior tibial, anterior tibial, and dorsalis pedis arteries which demonstrate monophasic waveforms. No flow limiting lesions. /[place] DICTATED BY: PATRICIA LAWSON MD DATE: 08/30/242034 PATIENT: CHADD MAGDALENO MR#: [id number] : 1960 SEX: M AGE: 63 LOCATION: [facility] ORDER 1501 STATUS: ADM IN REPORT#: [id number] SERVICE 1500 REASON: SEPSIS ORDERING PHYSICIAN: IVON UNDERWOOD MD PROCEDURE: FT 3VW LT - FOOT COMP 3+VWS LT EXAM: CR Left foot, 3 View. CLINICAL HISTORY: SEPSIS COMPARISON: Comparison: Radiograph dated September 21, 2016 Findings: AP, oblique, lateral views of the left foot are submitted. Interval amputation of the great toe from the distal metatarsal. There is edema and subcutaneous emphysema within the soft tissues overlying the first metatarsal. Presumed interval amputation of the second toe from the mid to distal second proximal phalanx and of the third toe from the distal interphalangeal joint. Clinical correlation is advised. There is suggestion of bone loss and cortical irregularities seen within the mid diaphyses of the 3rd and 4th proximal phalanxes. Findings may reflect osteomyelitis. Recommend contrast-enhanced MRI of the midfoot/forefoot for further evaluation. IMPRESSION: 1. Status post interval amputation of great toe, second toe, and third toe with soft tissue edema and subcutaneous emphysema overlying the first metatarsal. 2. Possible osteomyelitis of 3rd and 4th proximal phalanxes. Recommend MRI of the midfoot/forefoot for further evaluation. /[place] DICTATED BY: GISEL CHACON Jr., MD DATE: 08/30/241855 LABORATORY: [ ] Hematology Labs: Test 08/31/24 03:47 08/30/24 15:13 Range/Units White Blood Count 14.9 #H 4.8-10.8 K/uL Red Blood Count 3.02 L 4.50-6.20 MIL/uL Hemoglobin 9.0 L 14.0-18.0 g/dL Hematocrit 26.8 L 42-54 % Mean Corpuscular Volume 88.7 79-99 fL Mean Corpuscular Hemoglobin 29.8 27.0-33.0 pg Mean Corpuscular Hemoglobin Concent 33.6 32.0-36.0 g/dL Red Cell Distribution Width 12.5 11.0-15.5 % Platelet Count 246 130-400 K/uL Mean Platelet Volume 10.1 7.5-10.5 fL Immature Granulocyte % (Auto) 0.9 0-1 % Neutrophils (%) (Auto) 86.4 H 40.0-77.0 % Lymphocytes (%) (Auto) 4.3 L 21.0-51.0 % Monocytes (%) (Auto) 8.3 3.0-13.0 % Eosinophils (%) (Auto) 0.0 0.0-8.0 % Basophils (%) (Auto) 0.1 0.0-5.0 % Neutrophils # (Auto) 12.9 H 1.8-7.7 K/uL Lymphocytes # (Auto) 0.6 L 1.0-4.8 K/uL Monocytes # (Auto) 1.2 H 0.1-1.0 K/uL Eosinophils # (Auto) 0.00 0.00-0.70 K/uL Basophils # (Auto) 0.02 0.00-0.20 K/uL Absolute Immature Granulocyte (auto 0.13 0-1 K/uL Nucleated Red Blood Cells 0.0 0.0-0.19 % White Cell Morphology Comment See comments Erythrocyte Sedimentation Rate 113 H 0-20 MM/HR Chemistry Labs: Test 08/31/24 11:49 08/31/24 03:47 08/30/24 18:50 08/30/24 15:13 Range/Units Whole Blood Glucose 104 70-110 MG/DL Sodium Level 130 L 136-145 mmol/L Potassium Level 3.9 3.5-5.1 mmol/L Chloride Level 97 L 101-111 mmol/L Carbon Dioxide Level 27 21-32 mmol/L Blood Urea Nitrogen 38 H 7-18 mg/dL Creatinine 1.6 H 0.5-1.3 mg/dL Glomerular Filtration Rate Calc 47 >90 mL/min Random Glucose 134 H 70-105 mg/dL Total Calcium 7.9 L 8.5-10.1 mg/dL Magnesium Level 2.20 1.80-2.40 mg/dL Total Bilirubin 0.6 # 0.2-1.0 mg/dL Aspartate Amino Transf (AST/SGOT) 22 10-37 U/L Alanine Aminotransferase (ALT/SGPT) 16 12-78 U/L Alkaline Phosphatase 54 50-136 U/L Total Creatine Kinase 247 #H 21-232 U/L Total Protein 6.5 6.0-8.3 g/dL Albumin 2.1 #L 3.5-5.0 g/dL Lactic Acid Level 1.5 0.8-2.5 mmol/L Hemoglobin A1c 7.7 H 4.0-6.0 % Estimated Average Glucose (eAG) 174 H 70-126 mg/dL Direct Bilirubin 0.3 0.0-0.3 mg/dL Lactate Dehydrogenase 126 81-234 U/L Troponin I High Sensitivity 6 4-75 ng/L C-Reactive Protein, Quantitative 122.20 H 0.5-3.0 mg/L Procalcitonin 5.13 H 0.05-0.5 ng/mL Thyroid Stimulating Hormone (TSH) 0.86 # 0.36-3.74 uIU/mL Coagulation Labs: Test 08/30/24 15:13 Range/Units Prothrombin Time 11.9 H 9.6-11.6 SEC Prothromb Time International Ratio 1.14 0.85-1.15 Activated Partial Thromboplast Time 34.4 26.3-35.5 SEC ASSESSMENT: Acute renal failure Acute rhabdomyolysis Anemia Hyponatremia Sepsis Blood culture positive for Gram-negative rods Gas/wet gangrene of the left foot with extensively necrotic toes and underlying acute osteo-myelitis of multiple toe Poorly controlled type 2 diabetes mellitus Significant leukocytosis secondary to underlying septicemia PLAN: Labs, diagnostic, radiologic exams reviewed and interpreted by myself and supervising physician. We have reviewed external records in detail Obtain UA Start Nephro-Paulino daily Require close monitoring of renal function and electrolytes Order CBC, CMP, uric acid, complete iron panel, ferritin and electrolytes in am IV iron/Epogen as needed Continue with antibiotics BiPAP as necessary, for respiratory distress Monitor blood pressure adjust medication doses as needed Avoid hypotensive episodes May use Dilaudid 0.5 mg IV every 6 hours as needed for severe pain Monitor blood sugars Strict intake, output, and daily weight should be monitored Please renally adjust medications Avoid nephrotoxic and nonsteroidal drugs Avoid contrast if possible Will continue to monitor renal function, anemia, electrolytes Treatment plan discussed with patient Questions were answered We have discussed with the other team physicians in detail about the care plan We will continue to monitor the patient closely Thank you for allowing us to participate in the care of this patient ATTESTATION BY PHYSICIAN I have seen and examined the patient. I reviewed the documentation, medical decision making, and treatment plan as noted by the mid-level provider above. I agree with the findings and plan of care. EMMIE KRAMER MD, [facility] Aug 31, 2024 14:00 EMMIE KRAMER MD Aug 31, 2024 22:47
--- NOTE | 2024-08-31 15:20 | NUR ---
D/C PLAN CM spoke to patient regarding d/c planning. Patient lives with sister Irene. Patient has a wheelchair at home. States sister assists with ADL's. Denies having any home services. Plan to home to same setting. No needs verbalized. CM to f/u. Addendum: 08/31/24 at 1523 by FERN PIERCE CM Amended: Links added.
[2024-09-01] VITALS (9 sets, daily range): BP systolic 92–119; BP diastolic 52–64; PULSE 83–96; RESP 16–18; TEMP 98.2–100; O2SAT 98
[2024-09-01 03:46] LABS: NUCLEATED RED BLOOD CELLS 0.0 % (0.0-0.19); PLATELET COUNT (AUTO) 246.0 K/uL (130-400); RED BLOOD CELL COUNT(AUTO) 2.8 MIL/uL (4.50-6.20); RED CELL DISTRIBUTION WIDTH 12.6 % (11.0-15.5); WHITE BLOOD COUNT (AUTO) 12.3 K/uL (4.8-10.8)
[2024-09-01 04:15] LABS: % IRON SATURATION 25.6 % (30-44); IRON, SERUM 21.0 mcg/dL (65-175)
[2024-09-01 04:55] LABS: ASPARTATE AMINOTRANSFERASE 22.0 U/L (10-37); CREATININE 1.0 mg/dL (0.5-1.3); GLOMERULAR FILTR. RATE CALC 83.0 mL/min (>90); GLUCOSE,RANDOM 178.0 mg/dL (70-105); SODIUM SERUM 128.0 mmol/L (136-145); TOTAL PROTEIN, SERUM 6.0 g/dL (6.0-8.3); UREA NITROGEN, BLOOD 22.0 mg/dL (7-18)
[2024-09-01] MEDS: Vitamin B Complex/Vit C/Folic Acid PO SCH (09:46)
--- NOTE | 2024-09-01 10:04 | PN ---
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 He presented to emergency room for evaluation of left foot wounds. S/p left TMA by Dr. Lim He continues to be followed by Cardiology, pending recommendations He was noted to have worsening elevated BUN/creatinine We have been consulted for renal failure. Renal function is improving Electrolytes show hyponatremia Hemoglobin has remained stable UA was negative Renal ultrasound showed normal kidneys with no hydronephrosis. He continues on antibiotics Blood cultures are positive for Proteus mirabilis Pending further ID recommendations He was seen in the medical floor, in no acute distress Family at the bedside Prognosis remains guarded REVIEW OF SYSTEMS: GENERAL: Positive for left foot wound. NEUROLOGIC: Negative for any blurry vision, blind spots, double vision, facial asymmetry, dysphagia, dysarthria, hemiparesis, hemisensory deficits, vertigo, ataxia. HEENT: Negative for any head trauma, neck trauma, neck stiffness, photophobia, phonophobia, sinusitis, rhinitis. CARDIAC: Negative for any chest pain, dyspnea on exertion, paroxysmal nocturnal dyspnea, peripheral edema. PULMONARY: Negative for any shortness of breath, wheezing, COPD, or TB exposure. GASTROINTESTINAL: Negative for any abdominal pain, nausea, vomiting, bright red blood per rectum, melena. GENITOURINARY: Negative for any dysuria, hematuria, incontinence. INTEGUMENTARY: Negative for any rashes, cuts, insect bites. RHEUMATOLOGIC: Negative for any joint pains, photosensitive rashes, history of vasculitis or kidney problems. HEMATOLOGIC: Negative for any abnormal bruising, frequent infections or bleeding. Vital Signs (last 8hr) Date Time Temp Pulse Resp B/P (MAP) Pulse Ox O2 Delivery O2 Flow Rate FiO2 09/01/24 07:45 98.8 92 18 100/52 98 09/01/24 03:26 99.3 96 18 109/59 98 Room Air PHYSICAL EXAM: Current Medications Medications (Trade) Dose Ordered Sig/Nathaly Route Start Time Stop Time Status Last Admin Dose Admin Insulin Human Regular (humuLIN R 100 UNIT/ML 3ML) INSULIN SLIDING SCAL... ACHS SQ 08/30/24 21:00 8/2/25 20:59 08/31/24 20:58 3 UNIT Linezolid 300 ml @ 150 mls/hr Q12H IV 08/30/24 18:00 08/30/24 17:37 DC Linezolid 300 ml @ 150 mls/hr Q12H IV 08/30/24 20:00 09/09/24 19:59 09/01/24 09:46 150 MLS/HR Pharmacy Profile Note (Pharmacy Communication) 1 each ONCE MISC 08/30/24 17:30 09/01/24 07:16 DC 08/30/24 17:56 1 EACH Piperacillin Sod/ Tazobactam Sod (Zosyn 3.375gm+NS 50ml) 3.375 gm Q12H IVPB 08/30/24 21:00 08/31/24 06:42 DC 08/30/24 23:06 3.375 GM Piperacillin Sod/ Tazobactam Sod (Zosyn 3.375gm+NS 50ml) 3.375 gm Q8H IVPB 08/31/24 07:00 09/09/24 20:59 09/01/24 06:18 3.375 GM Sodium Chloride 1,000 ml @ 75 mls/hr [id number] IV 08/30/24 20:00 09/29/24 19:59 08/31/24 22:29 75 MLS/HR Thiamine HCl (Vitamin B-1) 100 mg Q24H IVP 08/30/24 18:00 09/03/24 18:00 08/31/24 18:33 100 MG Vitamin B Complex/ Vit C/Folic Acid (Nephrovite Tablet) 1 cap DAILY PO 09/01/24 09:00 10/01/24 08:59 09/01/24 09:46 1 CAP GENERAL: Alert and oriented x 3. No acute distress. Well-nourished. EYES: EOMI. Anicteric. HENT: Moist mucous membranes. No scleral icterus. No cervical lymphadenopathy. LUNGS: Clear to auscultation bilaterally. No accessory muscle use. CARDIOVASCULAR: Regular rate and rhythm. No murmur. No JVD. ABDOMEN: Soft, non-tender and non-distended. No palpable masses. EXTREMITIES: No edema. Non-tender. Right BKA, left TMA SKIN: No rashes or lesions. Warm. NEUROLOGIC: No focal neurological deficits. CN II-XII grossly intact, but not individually tested. PSYCHIATRIC: Cooperative. Appropriate mood and affect. LABORATORY: [ ] Hematology Labs: Test 09/01/24 03:15 08/31/24 03:47 08/30/24 15:13 Range/Units White Blood Count 12.3 H 4.8-10.8 K/uL Red Blood Count 2.80 L 4.50-6.20 MIL/uL Hemoglobin 8.4 L 14.0-18.0 g/dL Hematocrit 25.1 L 42-54 % Mean Corpuscular Volume 89.6 79-99 fL Mean Corpuscular Hemoglobin 30.0 27.0-33.0 pg Mean Corpuscular Hemoglobin Concent 33.5 32.0-36.0 g/dL Red Cell Distribution Width 12.6 11.0-15.5 % Platelet Count 246 130-400 K/uL Mean Platelet Volume 10.5 7.5-10.5 fL Nucleated Red Blood Cells 0.0 0.0-0.19 % Immature Granulocyte % (Auto) 0.9 0-1 % Neutrophils (%) (Auto) 86.4 H 40.0-77.0 % Lymphocytes (%) (Auto) 4.3 L 21.0-51.0 % Monocytes (%) (Auto) 8.3 3.0-13.0 % Eosinophils (%) (Auto) 0.0 0.0-8.0 % Basophils (%) (Auto) 0.1 0.0-5.0 % Neutrophils # (Auto) 12.9 H 1.8-7.7 K/uL Lymphocytes # (Auto) 0.6 L 1.0-4.8 K/uL Monocytes # (Auto) 1.2 H 0.1-1.0 K/uL Eosinophils # (Auto) 0.00 0.00-0.70 K/uL Basophils # (Auto) 0.02 0.00-0.20 K/uL Absolute Immature Granulocyte (auto 0.13 0-1 K/uL White Cell Morphology Comment See comments Erythrocyte Sedimentation Rate 113 H 0-20 MM/HR Chemistry Labs: Test 09/01/24 05:08 09/01/24 03:15 08/31/24 03:47 08/30/24 18:50 Range/Units Whole Blood Glucose 169 H 70-110 MG/DL Sodium Level 128 L 136-145 mmol/L Potassium Level 3.7 3.5-5.1 mmol/L Chloride Level 98 L 101-111 mmol/L Carbon Dioxide Level 29 21-32 mmol/L Blood Urea Nitrogen 22 H 7-18 mg/dL Creatinine 1.0 0.5-1.3 mg/dL Glomerular Filtration Rate Calc 83 >90 mL/min Random Glucose 178 H 70-105 mg/dL Uric Acid 5.2 2.6-7.2 mg/dL Total Calcium 7.9 L 8.5-10.1 mg/dL Magnesium Level 2.00 1.80-2.40 mg/dL Iron Level 21 #L 65-175 mcg/dL Total Iron Binding Capacity 82 L 250-450 mcg/dL Percent Iron Saturation 25.6 L 30-44 % Ferritin 1539 H 30-400 ng/mL Total Bilirubin 0.5 0.2-1.0 mg/dL Aspartate Amino Transf (AST/SGOT) 22 10-37 U/L Alanine Aminotransferase (ALT/SGPT) 14 12-78 U/L Alkaline Phosphatase 46 L 50-136 U/L Total Protein 6.0 6.0-8.3 g/dL Albumin 2.2 L 3.5-5.0 g/dL Total Creatine Kinase 247 #H 21-232 U/L Lactic Acid Level 1.5 0.8-2.5 mmol/L Test 08/30/24 15:13 Range/Units Hemoglobin A1c 7.7 H 4.0-6.0 % Estimated Average Glucose (eAG) 174 H 70-126 mg/dL Direct Bilirubin 0.3 0.0-0.3 mg/dL Lactate Dehydrogenase 126 81-234 U/L Troponin I High Sensitivity 6 4-75 ng/L C-Reactive Protein, Quantitative 122.20 H 0.5-3.0 mg/L Procalcitonin 5.13 H 0.05-0.5 ng/mL Thyroid Stimulating Hormone (TSH) 0.86 # 0.36-3.74 uIU/mL Coagulation Labs: Test 08/30/24 15:13 Range/Units Prothrombin Time 11.9 H 9.6-11.6 SEC Prothromb Time International Ratio 1.14 0.85-1.15 Activated Partial Thromboplast Time 34.4 26.3-35.5 SEC DIAGNOSTICS / RADIOLOGY: PATIENT: CHADD MAGDALENO MR#: [id number] : 1960 SEX: M AGE: 63 LOCATION: [facility] ORDER 37 STATUS: ADM IN REPORT#: [id number] SERVICE 34 REASON: rule out any significant lung infiltrates, sepsis, foot infection ORDERING PHYSICIAN: BRAULIO BRIDGES MD PROCEDURE: CXR1VW - CHEST 1VW EXAM: CR Chest, 1 View. CLINICAL HISTORY: rule out any significant lung infiltrates, sepsis, foot infection COMPARISON: 05/02/2017 FINDINGS: LUNGS: There is no mass, infiltrate, or acute pulmonary abnormality. PLEURAL SPACES: No pleural effusion or pneumothorax. MEDIASTINUM: Cardiac size and mediastinal contours within normal limits. BONES: No aggressive appearing osseous lesion seen. IMPRESSION: No acute cardiopulmonary pathology is evident. /[place] DICTATED BY: PATRICIA LAWSON MD DATE: 08/30/242003 REASON: acute renal failure, uncontrolled DM II ORDERING PHYSICIAN: BRAULIO BRIDGES MD PROCEDURE: RENAL - US RENAL SONOGRAM EXAMINATION: Renal ultrasound. COMPARISON: None provided. HISTORY: acute renal failure, uncontrolled DM II FINDINGS: The right kidney measures 9.9 cm and is normal in echotexture. The left kidney measures 9.2 cm and is normal in echotexture. There are no focal renal lesions. There are no renal stones. There is no hydronephrosis. There is mild debris noted in the urinary bladder. Cystitis should be excluded. IMPRESSION: Normal kidneys. No hydronephrosis Mild debris noted in the urinary bladder. Cystitis should be excluded. /[place] DICTATED BY: PATRICIA LAWSON MD DATE: 08/30/242022 PATIENT: CHADD MAGDALENO MR#: [id number] : 1960 SEX: M AGE: 63 LOCATION: [facility] ORDER 23 STATUS: ADM IN REPORT#: [id number] SERVICE 16 REASON: non healing left foot wound with necrotic toes, assess for severe PAD ORDERING PHYSICIAN: BRAULIO BRIDGES MD PROCEDURE: ART B LE - US ARTERIAL BILAT LOW EXT DUPL EXAMINATION: DUPLEX ULTRASOUND EXAMINATION OF THE BILATERAL LOWER EXTREMITY ARTERIES. CLINICAL HISTORY: Non-healing wound in the left, to assess for peripheral arterial disease. COMPARISON: Lower extremity arterial doppler dated 12/29/2020. FINDINGS: Peak systolic velocities within the right lower arteries are as follows: Common femoral artery: 56 cm/s. Superficial femoral artery: 55 cm/s at proximal, 71 cm/s at mid, and 50 cm/s at distal segments. Popliteal artery: 28 cm/s at proximal and 37 cm/s at distal segments. The right lower limb arteries demonstrate biphasic waveforms in all arteries. The below knee arteries are not assessed, post amputation status. Peak systolic velocities within the left lower arteries are as follows: Common femoral artery: 66 cm/s. Superficial femoral artery: 71 cm/s at proximal, 72 cm/s at mid, and 72 cm/s at distal segments. Popliteal artery: 56 cm/s at proximal and 55 cm/s at distal segments. Posterior tibial artery: 30 cm/s. Anterior tibial artery: 47 cm/s. Dorsalis pedis artery: 67 cm/s. The left lower limb arteries demonstrate biphasic waveforms in all arteries other than posterior tibial, anterior tibial, and dorsalis pedis arteries which demonstrate monophasic waveforms. There is intimal wall thickening in both lower limb arteries. IMPRESSION: Mild intimal wall thickening in both the lower limb arteries. Both lower limb arteries demonstrate biphasic waveforms in all arteries other than left posterior tibial, anterior tibial, and dorsalis pedis arteries which demonstrate monophasic waveforms. No flow limiting lesions. /[place] DICTATED BY: PATRICIA LAWSON MD DATE: 08/30/242034 PATIENT: CHADD MAGDALENO MR#: [id number] : 1960 SEX: M AGE: 63 LOCATION: [facility] ORDER 1501 STATUS: ADM IN REPORT#: [id number] SERVICE 1500 REASON: SEPSIS ORDERING PHYSICIAN: IVON UNDERWOOD MD PROCEDURE: FT 3VW LT - FOOT COMP 3+VWS LT EXAM: CR Left foot, 3 View. CLINICAL HISTORY: SEPSIS COMPARISON: Comparison: Radiograph dated September 21, 2016 Findings: AP, oblique, lateral views of the left foot are submitted. Interval amputation of the great toe from the distal metatarsal. There is edema and subcutaneous emphysema within the soft tissues overlying the first metatarsal. Presumed interval amputation of the second toe from the mid to distal second proximal phalanx and of the third toe from the distal interphalangeal joint. Clinical correlation is advised. There is suggestion of bone loss and cortical irregularities seen within the mid diaphyses of the 3rd and 4th proximal phalanxes. Findings may reflect osteomyelitis. Recommend contrast-enhanced MRI of the midfoot/forefoot for further evaluation. IMPRESSION: 1. Status post interval amputation of great toe, second toe, and third toe with soft tissue edema and subcutaneous emphysema overlying the first metatarsal. 2. Possible osteomyelitis of 3rd and 4th proximal phalanxes. Recommend MRI of the midfoot/forefoot for further evaluation. /[place] DICTATED BY: GISEL CHACON Jr., MD DATE: 08/30/24 0136 ASSESSMENT: Acute renal failure Acute rhabdomyolysis Anemia Hyponatremia Sepsis Blood culture positive for Gram-negative rods Gas/wet gangrene of the left foot with extensively necrotic toes and underlying acute osteo-myelitis of multiple toe Poorly controlled type 2 diabetes mellitus Significant leukocytosis secondary to underlying septicemia PLAN: Labs, diagnostic, radiologic exams reviewed and interpreted by myself and supervising physician. We have reviewed external records in detail Discontinue IV fluids Fluid restriction is advised Require close monitoring of renal function and electrolytes Order CBC, CMP, uric acid and electrolytes in am Continue with antibiotics BiPAP as necessary, for respiratory distress Monitor blood pressure adjust medication doses as needed Avoid hypotensive episodes May use Dilaudid 0.5 mg IV every 6 hours as needed for severe pain Monitor blood sugars Strict intake, output, and daily weight should be monitored Please renally adjust medications Avoid nephrotoxic and nonsteroidal drugs Avoid contrast if possible Will continue to monitor renal function, anemia, electrolytes Treatment plan discussed with patient Questions were answered We have discussed with the other team physicians in detail about the care plan We will continue to monitor the patient closely ATTESTATION BY PHYSICIAN I have seen and examined the patient. I reviewed the documentation, medical decision making, and treatment plan as noted by the mid-level provider above. I agree with the findings and plan of care. EMMIE KRAMER MD, [facility] Sep 01, 2024 10:04
--- NOTE | 2024-09-01 10:38 | PN ---
[facility] PROGRESS NOTE Date of Service: Sep 01, 2024 Time of Service: 10:34 SUBJECTIVE: This is a 63-year-old male with underlying history of poorly controlled type 2 diabetes mellitus, peripheral arterial disease, prior history of right [id number] amputation in 2020 due to right foot gangrene and necrotizing fasciitis. Patient presented to the emergency room August 30, 2024, with a chronic wounds involving toes to the foot, that according to him over the last several weeks has been getting more necrotic and foul smelling. He also reported having fever and chills. On presentation to the hospital, patient was noted to be febrile with T-max of 100.0 F, heart rate of 102, blood pressure of 81/50. [place] [address], hemoglobin of 10.3, platelet count of [id number]. BMP remarkable for sodium of 125, potassium 5.1, chloride of 90, BUN of 52, creatinine 2.0, blood glucose of 180, CK of 436 cardiac panel showed troponin of six. Patient admitted for further treatment and management of wet gangrene of the right foot with suspected chronic osteomyelitis of the toes. Patient received IV fluids and IV antibiotics. Consultation with Podiatry, Infectious Disease requested. 08/31 patient remains admitted to the PCU, BP 130/63, afebrile, saturating normal on room air. Leukocytosis improving, today WBC 14.9. Creatinine better at 1.6. Results of blood culture Gram-negative rods, positive in two of two sets. X- ray of the left foot status post interval amputation great toe, 2nd toe, 3rd toe with soft tissue edema subcutaneous emphysema overlying the 1st metatarsal, possible osteomyelitis of the 3rd and 4th proximal phalanx. Arterial ultrasound mild intimal wall thickening in both lower limb arteries, both lower limb arteries demonstrate biphasic waveform in all arteries other family left posterior tibial, anterior tibial and dorsalis pedis which demonstrate monophasic waveform, no flow-limiting stenosis. Renal ultrasound normal kidneys, no hydronephrosis, mild debris is noted in the urinary bladder, cystitis should be excluded. Patient on broad-spectrum IV antibiotics with Zosyn and linezolid, ID and podiatry consulted, input noted and appreciated. Cardiology consultation requested as the patient with peripheral arterial disease. We will follow input and recommendation. Renal ultrasound normal, no hydronephrosis, creatinine improving, nephrology consulted, we will follow input and recommendation. During my visit the patient is comfortable, back in the room from having debridement, eating lunch, tolerating well, getting good pain control with current medical management, at bedside, updated. 09/01 Patient presented to the emergency room August 30, 2024, with a chronic wounds involving toes to the left foot. X-ray of the left foot status post interval amputation great toe, 2nd toe, 3rd toe with soft tissue edema subcutaneous emphysema overlying the 1st metatarsal, possible osteomyelitis of the 3rd and 4th proximal phalanx. Patient is status post transmetatarsal amputation the left foot 08/31/24. Tolerated the procedure well. Results of blood culture positive for Proteus mirabilis. Urine culture [id number] CFU, identification and susceptibility process. Patient Zosyn IV, continue to follow podiatry and ID input and recommendation. During my visit the patient is comfortable, eating lunch, tolerating well, alert oriented x3, getting IV antibiotics, denied chest pain, shortness shortness for breath, no nausea, no vomiting, getting good pain control with current medical management, plan of care discussed with the patient and the at bedside, all questions answered. Agreed and understood all the information provided. REVIEW OF SYSTEMS CONSTITUTIONAL: fevers, chills, malaise, poor oral intake NEUROLOGICAL: Denies headache, amaurosis fugax, motor weakness, sensory def icit, vertigo/spinning sensation, gait abnormalities, or tremors. ENT: No hearing loss, otalgia, otorrhea, rhinitis, rhinorrhea, hoarseness, or sore throat. CARDIOVASCULAR: Denies any exertional angina, dyspnea on exertion, orthopnea, paroxysmal nocturnal dyspnea, palpitations, life-threatening arrhythmias, claudication. PULMONARY: Denies any shortness of breath, cough, phlegm/sputum, hemoptysis, pleuritic chest pain. SLEEP: Denies morning headaches, daytime somnolence or napping. Denies difficulty falling asleep, staying asleep, waking from sleep. Denies knowledge of snoring. GASTROINTESTINAL: Denies any type of dysphagia to either liquids or solids. Denies nausea, vomiting, pyrosis, early satiety, abdominal pain, diarrhea, constipation, or changes in stool consistency or caliber. Denies coffee-ground emesis, hematemesis, hematochezia, or melanotic stools. GENITOURINARY: Denies frequency, urgency, nocturia, hematuria or incontinence (Storage/Irritative symptoms.) Low urinary stream, straining to void, urinary intermittency or hesitancy, splitting of the voiding stream, terminal dribbling. ENDOCRINOLOGIC: Hx of type 2 Diabetes mellitus HEMATOLOGIC: Denies thrombophilia/previous clots, or coagulopathy/bleeding disorders. ONCOLOGIC: Denies personal history of malignancy. DERMATOLOGIC: foul smelling necrotic toes of the left foot with non healing wounds PSYCHIATRIC: Denies any suicidal or homicidal ideation. Denies hallucinations. PHYSICAL EXAM GENERAL APPEARANCE: The patient is awake, alert, and oriented, in no acute cardiopulmonary distress. NEUROLOGICAL: Cranial nerves II-XII grossly intact. Motor is 5/5 in bilateral upper and lower extremities proximal to distal. No sensory deficits. HEENT: Face is symmetric. Pupils are equal and reactive. Extraocular movements are intact. NECK: Supple. No JVD. No thyromegaly. No submental, submandibular, pre- /postauricular, occipital or supraclavicular lymphadenopathy. CHEST: Normal chest expansion. No Telemetry. LUNGS: Absence of any rales, rhonchi or any wheezing. CARDIOVASCULAR: Regular. S1 and S2 normal. No appreciable rubs, murmurs or gallops. ABDOMEN: Soft, nontender, and nondistended. There is no rebound, voluntary guarding, or rigidity. : Deferred. No Sandhu. EXTREMITIES: Left foot noted to have extremely foul-smelling wound with necrotic toes noted from 2nd two fifth digit, area of erythema and surrounding cellulitic changes noted Vital Signs (last 8hr) Date Time Temp Pulse Resp B/P (MAP) Pulse Ox O2 Delivery O2 Flow Rate FiO2 09/01/24 07:45 98.8 92 18 100/52 98 09/01/24 03:26 99.3 96 18 109/59 98 Room Air LABS: Laboratory: Test 09/01/24 05:08 09/01/24 03:15 08/31/24 03:47 08/31/24 00:40 Range/Units Whole Blood Glucose 169 H 70-110 MG/DL White Blood Count 12.3 H 4.8-10.8 K/uL Red Blood Count 2.80 L 4.50-6.20 MIL/uL Hemoglobin 8.4 L 14.0-18.0 g/dL Hematocrit 25.1 L 42-54 % Mean Corpuscular Volume 89.6 79-99 fL Mean Corpuscular Hemoglobin 30.0 27.0-33.0 pg Mean Corpuscular Hemoglobin Concent 33.5 32.0-36.0 g/dL Red Cell Distribution Width 12.6 11.0-15.5 % Platelet Count 246 130-400 K/uL Mean Platelet Volume 10.5 7.5-10.5 fL Nucleated Red Blood Cells 0.0 0.0-0.19 % Sodium Level 128 L 136-145 mmol/L Potassium Level 3.7 3.5-5.1 mmol/L Chloride Level 98 L 101-111 mmol/L Carbon Dioxide Level 29 21-32 mmol/L Blood Urea Nitrogen 22 H 7-18 mg/dL Creatinine 1.0 0.5-1.3 mg/dL Glomerular Filtration Rate Calc 83 >90 mL/min Random Glucose 178 H 70-105 mg/dL Uric Acid 5.2 2.6-7.2 mg/dL Total Calcium 7.9 L 8.5-10.1 mg/dL Magnesium Level 2.00 1.80-2.40 mg/dL Iron Level 21 #L 65-175 mcg/dL Total Iron Binding Capacity 82 L 250-450 mcg/dL Percent Iron Saturation 25.6 L 30-44 % Ferritin 1539 H 30-400 ng/mL Total Bilirubin 0.5 0.2-1.0 mg/dL Aspartate Amino Transf (AST/SGOT) 22 10-37 U/L Alanine Aminotransferase (ALT/SGPT) 14 12-78 U/L Alkaline Phosphatase 46 L 50-136 U/L Total Protein 6.0 6.0-8.3 g/dL Albumin 2.2 L 3.5-5.0 g/dL Immature Granulocyte % (Auto) 0.9 0-1 % Neutrophils (%) (Auto) 86.4 H 40.0-77.0 % Lymphocytes (%) (Auto) 4.3 L 21.0-51.0 % Monocytes (%) (Auto) 8.3 3.0-13.0 % Eosinophils (%) (Auto) 0.0 0.0-8.0 % Basophils (%) (Auto) 0.1 0.0-5.0 % Neutrophils # (Auto) 12.9 H 1.8-7.7 K/uL Lymphocytes # (Auto) 0.6 L 1.0-4.8 K/uL Monocytes # (Auto) 1.2 H 0.1-1.0 K/uL Eosinophils # (Auto) 0.00 0.00-0.70 K/uL Basophils # (Auto) 0.02 0.00-0.20 K/uL Absolute Immature Granulocyte (auto 0.13 0-1 K/uL Total Creatine Kinase 247 #H 21-232 U/L Urine Color YELLOW YELLOW Urine Appearance CLOUDY H CLEAR Urine pH 5.0 5.0-8.0 Urine Specific Spangle 1.014 1.001-1.031 Urine Protein NEGATIVE NEGATIVE mg/dL Urine Glucose (UA) 200 H NEGATIVE mg/dL Urine Ketones 5 H NEGATIVE mg/dL Urine Occult Blood +- (TRACE) H NEGATIVE Urine Nitrate NEGATIVE NEGATIVE Urine Bilirubin NEGATIVE NEGATIVE mg/dL Urine Urobilinogen 0.2 0.2-1.0 mg/dL Urine Leukocyte Esterase 500 H NEGATIVE Gissel/uL Urine RBC 6-10 H 0-1 /HPF Urine WBC 26-50 H 0-1 /HPF Urine WBC Clumps (Auto) MANY 0-1 /HPF Urine Squamous Epithelial Cells FEW 0-2 /HPF Urine Bacteria MANY None Seen /HPF Urine Hyaline Casts 2-5 H 0-1 /LPF /LPF Urine Random Creatinine 69.01 30-135 mg/dL Urine Random Sodium 28 L 40-220 mmol/l Urine Opiates Screen NEGATIVE NEGATIVE Urine Barbiturates Screen NEGATIVE NEGATIVE Urine Phencyclidine Screen NEGATIVE NEGATIVE Urine Amphetamines Screen NEGATIVE NEGATIVE Urine Benzodiazepines Screen NEGATIVE NEGATIVE Urine Cocaine Screen NEGATIVE NEGATIVE Urine Marijuana (THC) Screen NEGATIVE NEGATIVE Test 08/30/24 18:50 08/30/24 15:13 Range/Units Lactic Acid Level 1.5 0.8-2.5 mmol/L White Cell Morphology Comment See comments Erythrocyte Sedimentation Rate 113 H 0-20 MM/HR Prothrombin Time 11.9 H 9.6-11.6 SEC Prothromb Time International Ratio 1.14 0.85-1.15 Activated Partial Thromboplast Time 34.4 26.3-35.5 SEC Hemoglobin A1c 7.7 H 4.0-6.0 % Estimated Average Glucose (eAG) 174 H 70-126 mg/dL Direct Bilirubin 0.3 0.0-0.3 mg/dL Lactate Dehydrogenase 126 81-234 U/L Troponin I High Sensitivity 6 4-75 ng/L C-Reactive Protein, Quantitative 122.20 H 0.5-3.0 mg/L Procalcitonin 5.13 H 0.05-0.5 ng/mL Thyroid Stimulating Hormone (TSH) 0.86 # 0.36-3.74 uIU/mL Current Medications Medications (Trade) Dose Ordered Sig/Nathaly Route PRN Reason Start Time Stop Time Status Last Admin Dose Admin Acetaminophen (TYLenol 325MG TAB) 650 mg Q6H PRN PO MILD PAIN (1-3) 08/30/24 17:30 09/29/24 17:29 Dextrose (D50w) 50 ml AD PRN IV HYPOGLYCEMIA PROTOCOL 08/30/24 18:00 09/29/24 17:59 Glucagon (Glucagon 1mg Kit) 1 mg AD PRN IM HYPOGLYCEMIA PROTOCOL 08/30/24 18:00 09/29/24 17:59 Hydromorphone HCl (DiLAUDid 0.5MG INJ) 0.2 mg Q6H PRN IVP SEVERE PAIN (7-10) 08/30/24 17:30 09/04/24 17:29 Insulin Human Regular (humuLIN R 100 UNIT/ML 3ML) INSULIN SLIDING SCAL... ACHS SQ 08/30/24 21:00 09/29/24 20:59 08/31/24 20:58 3 UNIT Linezolid 300 ml @ 150 mls/hr Q12H IV 08/30/24 18:00 08/30/24 17:37 DC Linezolid 300 ml @ 150 mls/hr Q12H IV 08/30/24 20:00 09/09/24 19:59 09/01/24 09:46 150 MLS/HR Ondansetron HCl (zoFRAN 4MG INJ) 4 mg Q6H PRN IVP NAUSEA/VOMITING 08/30/24 17:30 09/29/24 17:29 Pharmacy Profile Note (Pharmacy Communication) 1 each ONCE MISC 08/30/24 17:30 09/01/24 07:16 DC 08/30/24 17:56 1 EACH Piperacillin Sod/ Tazobactam Sod (Zosyn 3.375gm+NS 50ml) 3.375 gm Q12H IVPB 08/30/24 21:00 08/31/24 06:42 DC 08/30/24 23:06 3.375 GM Piperacillin Sod/ Tazobactam Sod (Zosyn 3.375gm+NS 50ml) 3.375 gm Q8H IVPB 08/31/24 07:00 09/09/24 20:59 09/01/24 06:18 3.375 GM Sodium Chloride 1,000 ml @ 75 mls/hr [id number] IV 08/30/24 20:00 09/29/24 19:59 08/31/24 22:29 75 MLS/HR Thiamine HCl (Vitamin B-1) 100 mg Q24H IVP 08/30/24 18:00 09/03/24 18:00 08/31/24 18:33 100 MG Vitamin B Complex/ Vit C/Folic Acid (Nephrovite Tablet) 1 cap DAILY PO 09/01/24 09:00 10/01/24 08:59 09/01/24 09:46 1 CAP DIAGNOSTICS / RADIOLOGY: [ ] ASSESSMENT: Gas/wet gangrene of the left foot with extensively necrotic toes and underlying acute osteo-myelitis of multiple toes, POA Sepsis, POA, (complicated soft tissue infection of the left foot with underlying osteomyelitis) POA Status post transmetatarsal amputation left foot 08/31/2024 Gram-negative bacteremia secondary to Proteus mirabilis POA UTI, POA Poorly controlled type 2 diabetes mellitus, POA Acute renal failure, POA Acute rhabdomyolysis, POA Anemia, POA Significant leukocytosis secondary to underlying septicemia, POA Moderate hyponatremia, POA Hx of right BKA, POA PLAN: Patient presented to the emergency room August 30, 2024, with a chronic wounds involving toes to the left foot. X-ray of the left foot status post interval amputation great toe, 2nd toe, 3rd toe with soft tissue edema subcutaneous emphysema overlying the 1st metatarsal, possible osteomyelitis of the 3rd and 4th proximal phalanx. Patient is status post transmetatarsal amputation the left foot 08/31/24. Tolerated the procedure well. Results of blood culture positive for Proteus mirabilis. Urine culture [id number] CFU, identification and susceptibility process. Patient Zosyn IV, continue to follow podiatry and ID input and recommendation. NEURO: Minimize central acting medications as possible. Fall Precautions. Well lighted room through the day and minimize interruptions through the night to prevent acute delirium. PULMONARY: Supplemental 02 as needed BiPAP as necessary, for respiratory distress Titrate Fio2 to keep Spo2 > or = 90% DuoNebs and CPT as needed IS hourly while awake for pulmonary hygiene prn Out of bed to chair as tolerated Maintain aspiration precautions at all times CARDIOVASCULAR: Follow hemodynamics. Vital signs per facility protocol GI & NUTRITION: Continue nutritional support Aspirations precautions Prokinetic agents and laxatives as needed KIDNEYS & ELECTROLYTES: Strict monitoring of intake and output Daily weights Avoid nephrotoxic agents Monitor electrolytes and replace as needed Goal urine output of 30mL/hr or 0.5mL/kg/hr Medications to be dosed according to renal function. Avoid contrast if possible ENDOCRINE: Maintain blood glucose between 100-180 at all times. Insulin sliding scale for blood glucose management Hypoglycemia and hyperglycemia protocol in place INFECTIOUS DISEASE: Trend temperature, WBC and procalcitonin level Follow cultures, deescalate antibiotics as soon as possible. Panculture if new onset fever HEMATOLOGY & COAGULATION: Monitor H&H. Keep Hgb > 7 Transfuse 1 unit of PRBC for Hgb < 7 Transfuse 1 pack of platelets of platelets < 20, 000 Watch for any signs and symptoms of bleeding SKIN: Pressure ulcer prevention per facility protocol Specialty mattress as needed ORTHO/REHAB Continue PT/OT PRN: MEDICATIONS Tylenol 650 mg po every 4 hrs for fever zofran 4 mg IV every 6 hrs for n/v Hydralazine 5 mg IV every 4 hrs systolic pressure > 160 bowel regiment: lactulose 20 gm PO BID PRN constipation Supportive measures: Continue GI and DVT prophylaxis Disposition: Pending improvement in clinical condition All questions answered time spent: > 35 min JERO RICHARDS MD Sep 01, 2024 10:38
--- NOTE | 2024-09-01 11:11 | NUR ---
hyponatremia notified to JODI Monroe. Orders to stop 0.9% NS placed and executed.
--- NOTE | 2024-09-01 13:27 | PN ---
[facility] CARDIOLOGY PROGRESS NOTE Date Patient Seen: Sep 01, 2024 Time of Visit: 13:18 Interval History: This is a 64-year-old Latin-[place] male with a past medical history of type 2 diabetes mellitus, peripheral artery disease status post right BKA 2020, normocytic normochromic anemia, probable chronic kidney disease stage 3 with admission creatinine of 2 and noncompliance with medical care and follow-up. He reports he has no primary care physician as an outpatient mainly by choice. The patient presented here on 08/30/2024 with foul-smelling discharge from the left foot wound with necrosis. He was found to have sepsis with gangrene of the left foot and extensive necrosis into the toes and osteomyelitis and multiple toes of the left foot. His admission labs were remarkable for sodium of 125, potassium 5.1, CO2 24 and chloride of 90, BUN 52 and creatinine of 2.0 and CK of 436. Troponin was normal. CRP was 122. Hemoglobin A1c of 7.7. He has been seen and evaluated by Dr. Lim and the patient underwent a transmetatarsal amputation of the left foot with partial medial cuneiformectomy, transfer of the extensor hallucis longus to the flexor hallucis longus tendon, complex layered primary wound closure of a highly modified 22 cm surgical incision on 08/31/2024. Cardiology was involved on 08/30/2024 after he was found to have abnormal arterial Doppler study demonstrating monophasic waveforms involving the infrapopliteal vessels on the left. He was evaluated by Dr. Vickey Villalpando who preferred evaluation with a CT angiogram with left lower extremity runoff but his creatinine at the time was 2.0. The patient offers no complaints overnight. He is thin, cachectic looking and admits to not caring for himself as an outpatient with no primary follow-up for his diabetes management. Physical Examination: GENERAL: No acute distress. HEAD: Normal with no signs of head trauma. EYES: PERRLA, EOMI, conjunctiva and sclera normal. NECK: Supple without JVD. There is no tenderness, lymphadenopathy, or masses. No thyromegaly. Normal carotid upstrokes without bruits. LUNGS: Clear breath sounds bilaterally. No wheezes, or rhonchi. HEART: Normal rate and rhythm. Normal S1 and S2 without murmurs, gallop or rub. VASC: There is a right BKA that is old and he has a new left TMA with dressing to the left partial foot. There are areas of scattered excoriation to the left lower extremity EXT: No clubbing, cyanosis or edema. NEURO: Awake, alert, and oriented x3. No focal neurological deficits noted. Laboratory: Hematology Labs: Test 09/01/24 03:15 08/31/24 03:47 08/30/24 15:13 Range/Units White Blood Count 12.3 H 4.8-10.8 K/uL Red Blood Count 2.80 L 4.50-6.20 MIL/uL Hemoglobin 8.4 L 14.0-18.0 g/dL Hematocrit 25.1 L 42-54 % Mean Corpuscular Volume 89.6 79-99 fL Mean Corpuscular Hemoglobin 30.0 27.0-33.0 pg Mean Corpuscular Hemoglobin Concent 33.5 32.0-36.0 g/dL Red Cell Distribution Width 12.6 11.0-15.5 % Platelet Count 246 130-400 K/uL Mean Platelet Volume 10.5 7.5-10.5 fL Nucleated Red Blood Cells 0.0 0.0-0.19 % Immature Granulocyte % (Auto) 0.9 0-1 % Neutrophils (%) (Auto) 86.4 H 40.0-77.0 % Lymphocytes (%) (Auto) 4.3 L 21.0-51.0 % Monocytes (%) (Auto) 8.3 3.0-13.0 % Eosinophils (%) (Auto) 0.0 0.0-8.0 % Basophils (%) (Auto) 0.1 0.0-5.0 % Neutrophils # (Auto) 12.9 H 1.8-7.7 K/uL Lymphocytes # (Auto) 0.6 L 1.0-4.8 K/uL Monocytes # (Auto) 1.2 H 0.1-1.0 K/uL Eosinophils # (Auto) 0.00 0.00-0.70 K/uL Basophils # (Auto) 0.02 0.00-0.20 K/uL Absolute Immature Granulocyte (auto 0.13 0-1 K/uL White Cell Morphology Comment See comments Erythrocyte Sedimentation Rate 113 H 0-20 MM/HR Chemistry Labs: Test 09/01/24 05:08 09/01/24 03:15 08/31/24 03:47 08/30/24 18:50 Range/Units Whole Blood Glucose 169 H 70-110 MG/DL Sodium Level 128 L 136-145 mmol/L Potassium Level 3.7 3.5-5.1 mmol/L Chloride Level 98 L 101-111 mmol/L Carbon Dioxide Level 29 21-32 mmol/L Blood Urea Nitrogen 22 H 7-18 mg/dL Creatinine 1.0 0.5-1.3 mg/dL Glomerular Filtration Rate Calc 83 >90 mL/min Random Glucose 178 H 70-105 mg/dL Uric Acid 5.2 2.6-7.2 mg/dL Total Calcium 7.9 L 8.5-10.1 mg/dL Magnesium Level 2.00 1.80-2.40 mg/dL Iron Level 21 #L 65-175 mcg/dL Total Iron Binding Capacity 82 L 250-450 mcg/dL Percent Iron Saturation 25.6 L 30-44 % Ferritin 1539 H 30-400 ng/mL Total Bilirubin 0.5 0.2-1.0 mg/dL Aspartate Amino Transf (AST/SGOT) 22 10-37 U/L Alanine Aminotransferase (ALT/SGPT) 14 12-78 U/L Alkaline Phosphatase 46 L 50-136 U/L Total Protein 6.0 6.0-8.3 g/dL Albumin 2.2 L 3.5-5.0 g/dL Total Creatine Kinase 247 #H 21-232 U/L Lactic Acid Level 1.5 0.8-2.5 mmol/L Test 08/30/24 15:13 Range/Units Hemoglobin A1c 7.7 H 4.0-6.0 % Estimated Average Glucose (eAG) 174 H 70-126 mg/dL Direct Bilirubin 0.3 0.0-0.3 mg/dL Lactate Dehydrogenase 126 81-234 U/L Troponin I High Sensitivity 6 4-75 ng/L C-Reactive Protein, Quantitative 122.20 H 0.5-3.0 mg/L Procalcitonin 5.13 H 0.05-0.5 ng/mL Thyroid Stimulating Hormone (TSH) 0.86 # 0.36-3.74 uIU/mL Coagulation Labs: Test 08/30/24 15:13 Range/Units Prothrombin Time 11.9 H 9.6-11.6 SEC Prothromb Time International Ratio 1.14 0.85-1.15 Activated Partial Thromboplast Time 34.4 26.3-35.5 SEC Diagnostics / Radiology: Bilateral lower extremity arterial Doppler study 08/30/2024: IMPRESSION: Mild intimal wall thickening in both the lower limb arteries. Both lower limb arteries demonstrate biphasic waveforms in all arteries other than left posterior tibial, anterior tibial, and dorsalis pedis arteries which demonstrate monophasic waveforms. No flow limiting lesions. Impression and Plan: Sepsis secondary to left foot infection/osteomyelitis: Proteus mirabilis bacteremia: Gangrene of the left foot with extensively necrotic toes and underlying acute osteomyelitis of multiple toes: Status post transmetatarsal amputation of the left foot with partial medial cuneiformectomy, transfer of the extensor hallucis longus to the flexor hallucis longus tendon, complex layered primary wound closure of a highly modified 22 cm surgical incision on 08/31/2024: -continue management and wound care per primary team and Dr. Lim Peripheral artery disease with monophasic waveforms in the left infrapopliteal vessels: -if renal function remained stable, we will proceed with a CT angiogram in the left lower extremity runoff on Tuesday -begin clopidogrel 75 mg p.o. daily if okay with Dr. Lim -begin statin therapy with atorvastatin 40 mg p.o. daily once CK normalizes -obtain a fasting lipid panel and target LDL of 55 or less Acute likely on chronic renal failure with admission creatinine of 2.0: -creatinine has normalized to 1.0 -nephrology is following Malnutrition Noncompliance Poorly controlled type 2 diabetes mellitus with hemoglobin A1c of 7.7 Chronic normocytic normochromic anemia Hyponatremia History of right BKA 2020 PHYSICIAN ATTESTATION OF PHYSICIAN PLUMBING CONTRACTOR DOCUMENTATION: I attest that I was physically present for the vargas portions of the service and evaluated the patient with the Physician Library Media Technician, and I reviewed and discussed the case with the Physician Library Media Technician and made modifications to the Physician Ex tender's findings and plans of care as documented above KANIKA CROFT Sep 01, 2024 13:27 RENEA OCHOA MD Sep 13, 2024 09:44
--- NOTE | 2024-09-01 13:40 | PN ---
SUBJECTIVE: The patient is a pleasant, 64-year-old, diabetic, male. Afebrile 98.8, blood pressure 103/64 mmHg, pulse 92, respirations 18. He has a white count 12.3, H and H 8.4/25.1, platelets 246, BUN and creatinine level 22/1.0, glucose 169. The patient is status post now transmetatarsal amputation to his foot on the right. The patient has had arterial Dopplers. Left posterior, left anterior, and dorsalis pedis arteries are monophasic. The patient is being evaluated by the Cardiology Service. Cardiology has ordered a CT angiography of the abdominal aorta with runoff. The results of the CT angiography with runoff are pending. The patient has had blood cultures positive for Proteus mirabilis. He has had urine cultures that are pending. He is currently receiving IV Zyvox and IV Zosyn. REVIEW OF SYSTEMS: CONSTITUTIONAL: Having no chills, no fevers, or night sweats. No nausea or vomiting. No diarrhea. HEENT: No problems with eyes, ears, nose, or throat. CARDIOVASCULAR: Having no current chest pain. RESPIRATORY: No shortness of breath. GENITOURINARY: He has pending urine cultures. GASTROINTESTINAL: No dysphagia. ENDOCRINE: Diabetes. PSYCHIATRIC: Denied any depression. MUSCULOSKELETAL: [id number] amputation on the right. INTEGUMENTARY: He has a transmetatarsal amputation on the left. ASSESSMENT: Status post transmetatarsal amputation on the left. Cultures have grown Proteus mirabilis. The patient is receiving Zyvox and Zosyn. The patient is being followed by Cardiology Service. CT angiography has been ordered to evaluate his lower extremity circulation. PLAN: We will continue with Betadine dressings and offloading measures. We will keep the drain in place. We are awaiting evaluation of his circulation status by the Cardiology Service. We are awaiting the results of his intraoperative culture sensitivities and his urine cultures. We will continue with nonweightbearing status on the left foot, offloading measures, and local wound care. Follow the patient closely while in-house. TID: [id number] RECEIPT: [id number]
[2024-09-01] MEDS ORDERED: BETAMETHASONE VALERATE 45 GM CREAM.GM. TP SCH (14:00)
--- NOTE | 2024-09-01 14:17 | HMCSR ---
APPROVED REPORT EXAM: Two-dimensional and M-mode echocardiogram with Doppler and color Doppler. Study Details: Diabts M , PVD INDICATION ICD: CAD , chf 2D Dimensions RVDd3.4 cmLVEF(%)70.2 (>50%)LVED Vol(simp.)86.7 mL IVSd0.9 (0.7-1.1cm)FS(%)40 %LVES Vol(simp.)38.5 mL LVDd4.6 (3.8-5.6cm)LA (2D)2.8 (1.6-4.0cm)LVEF(%, simp.)56 % PWd0.8 (0.7-1.1cm)Ao Root(2D)3.3 (2.0-3.7cm)LA ESV INDEX (4CH)21.00 mL/m2 IVSs1.1 cmLVOT diam2.0 (1.8-2.4cm)LA ESV INDEX (2CH)15.31 mL/m2 LVDs2.8 (2.5-4.0cm)LA ESV INDEX (BP)15.38 mL/m2 PWs1.2 cm Deformation Strain Apical 416.8 % Apical 213.2 % Apical 315.0 % Global Rkoitu32.0 % M-Mode Dimensions EPSS1.8 cm LA (MM)3.4 (1.6-4.0cm) Ao Root(MM)3.4 (2.0-3.7cm) Aortic Valve AoV Vmax0.9 m/Nicolas Peak GR3.2 mmHgLVOT Vmax0.8 m/s AoV VTI0.2 mAo Mean GR1.7 mmHgLVOT VTI0.15 m CAITLIN (VMAX)3.04 cm2AVA (VTI) 3.1 cm2 Mitral Valve MV E Vmax61.6 cm/sDECEL Eggz247 ms MV A Vmax95.3 cm/s E/A ratio0.6 TDI E/E' Olsyaq26.5E/E' Lateral6.4 Medial E' Peak V5.86 cm/sLateral E' Peak V9.56 cm/s Pulmonary Valve PV Vmax0.9 m/sPV VTI0.18 mPV Mean GR2.0 mmHg PV Peak GR3.5 mmHg Left Ventricle The left ventricle is normal size. There is normal LV segmental wall motion. There is normal left pretty tricular wall thickness. LVEF is 50-55%. Stage I diastolic dysfunction. Right Ventricle The right ventricle is normal size. The right ventricular systolic function is normal. Atria The left atrium size is normal. The interatrial septum is intact with no evidence for an atrial septa l defect. The right atrium size is normal. Aortic Valve Aortic valve NCC leaflets mild calcified. Trace aortic regurgitation. There is no aortic valvular katherine nosis. Mitral Valve The mitral valve is mildly thickened. Mild posterior mitral annular calcification present. There is n o evidence of significant mitral regurgitation. There is no mitral valve stenosis. Tricuspid Valve The tricuspid valve is normal in structure. There is no tricuspid valve regurgitation noted. Pulmonic Valve Pulmonic valve is not well visualized. There is trace pulmonic valvular regurgitation. Great Vessels The aortic root is normal in size. The ascending aorta is normal in size. IVC is not well visualized. Pericardium not visualized Conclusion LVEF is 50-55%. Stage I diastolic dysfunction. There is normal LV segmental wall motion. Aortic valve NCC leaflets mild calcified. Trace aortic regurgitation. The mitral valve is mildly thickened. Mild posterior mitral annular calcification present.
--- NOTE | 2024-09-01 14:19 | PN ---
INFECTIOUS DISEASE PROGRESS NOTE Date of Service: Sep 01, 2024 SUBJECTIVE: This 64 year old male patient is being seen today at bedside. Awake, alert and oriented x3. No fever or chills. No nausea or vomiting. He continues with wound care to left lower extremity. In no distress, calm. Patient continues with antibiotics. No acute events over night as per nurse. PHYSICAL EXAM EYES: Anicteric. Pupils equal and reactive. HENT: No oral thrush seen, moist Oral mucosa NECK: Supple, no JVD or thyromegaly. LUNGS: Good air entry. No rales, no rhonchi. CARDIOVASCULAR: S1, S2 regular. No murmur heard. ABDOMEN: Soft, non tender, bowel sounds present, no organomegaly CENTRAL NERVOUS SYSTEM: Awake, alert, oriented x 3. No focal deficits. SKIN: No rashes, no swelling. LYMPHATICS: No peripheral lymphadenopathy MUSCULOSKELETAL: No joint swelling, erythema or tenderness. EXTREMITIES: Dry dressing to left lower extremity BACK: No deformity, no pressure ulcer. GENITOURINARY: No dysuria or hematuria Vital Sign (Last 12 Hours) 09/01/24 09/01/24 09/01/24 03:26 07:45 11:15 Temp 99.3 98.8 98.6 Pulse 96 92 89 Resp 18 18 18 B/P (MAP) 109/59 100/52 103/64 Pulse Ox 98 98 98 O2 Delivery Room Air Intake & Output (last 24hrs) 08/31/24 08/31/24 09/01/24 15:00 23:00 07:00 Intake Total 350.0 ml 1190.0 ml Output Total 600 ml Balance -250.0 ml 1190.0 ml LABS: Laboratory: Test 09/01/24 13:44 09/01/24 03:15 08/31/24 03:47 08/31/24 00:40 Range/Units Whole Blood Glucose 271 #H 70-110 MG/DL White Blood Count 12.3 H 4.8-10.8 K/uL Red Blood Count 2.80 L 4.50-6.20 MIL/uL Hemoglobin 8.4 L 14.0-18.0 g/dL Hematocrit 25.1 L 42-54 % Mean Corpuscular Volume 89.6 79-99 fL Mean Corpuscular Hemoglobin 30.0 27.0-33.0 pg Mean Corpuscular Hemoglobin Concent 33.5 32.0-36.0 g/dL Red Cell Distribution Width 12.6 11.0-15.5 % Platelet Count 246 130-400 K/uL Mean Platelet Volume 10.5 7.5-10.5 fL Nucleated Red Blood Cells 0.0 0.0-0.19 % Sodium Level 128 L 136-145 mmol/L Potassium Level 3.7 3.5-5.1 mmol/L Chloride Level 98 L 101-111 mmol/L Carbon Dioxide Level 29 21-32 mmol/L Blood Urea Nitrogen 22 H 7-18 mg/dL Creatinine 1.0 0.5-1.3 mg/dL Glomerular Filtration Rate Calc 83 >90 mL/min Random Glucose 178 H 70-105 mg/dL Uric Acid 5.2 2.6-7.2 mg/dL Total Calcium 7.9 L 8.5-10.1 mg/dL Magnesium Level 2.00 1.80-2.40 mg/dL Iron Level 21 #L 65-175 mcg/dL Total Iron Binding Capacity 82 L 250-450 mcg/dL Percent Iron Saturation 25.6 L 30-44 % Ferritin 1539 H 30-400 ng/mL Total Bilirubin 0.5 0.2-1.0 mg/dL Aspartate Amino Transf (AST/SGOT) 22 10-37 U/L Alanine Aminotransferase (ALT/SGPT) 14 12-78 U/L Alkaline Phosphatase 46 L 50-136 U/L Total Protein 6.0 6.0-8.3 g/dL Albumin 2.2 L 3.5-5.0 g/dL Immature Granulocyte % (Auto) 0.9 0-1 % Neutrophils (%) (Auto) 86.4 H 40.0-77.0 % Lymphocytes (%) (Auto) 4.3 L 21.0-51.0 % Monocytes (%) (Auto) 8.3 3.0-13.0 % Eosinophils (%) (Auto) 0.0 0.0-8.0 % Basophils (%) (Auto) 0.1 0.0-5.0 % Neutrophils # (Auto) 12.9 H 1.8-7.7 K/uL Lymphocytes # (Auto) 0.6 L 1.0-4.8 K/uL Monocytes # (Auto) 1.2 H 0.1-1.0 K/uL Eosinophils # (Auto) 0.00 0.00-0.70 K/uL Basophils # (Auto) 0.02 0.00-0.20 K/uL Absolute Immature Granulocyte (auto 0.13 0-1 K/uL Total Creatine Kinase 247 #H 21-232 U/L Urine Color YELLOW YELLOW Urine Appearance CLOUDY H CLEAR Urine pH 5.0 5.0-8.0 Urine Specific [place] 1.014 1.001-1.031 Urine Protein NEGATIVE NEGATIVE mg/dL Urine Glucose (UA) 200 H NEGATIVE mg/dL Urine Ketones 5 H NEGATIVE mg/dL Urine Occult Blood +- (TRACE) H NEGATIVE Urine Nitrate NEGATIVE NEGATIVE Urine Bilirubin NEGATIVE NEGATIVE mg/dL Urine Urobilinogen 0.2 0.2-1.0 mg/dL Urine Leukocyte Esterase 500 H NEGATIVE Gissel/uL Urine RBC 6-10 H 0-1 /HPF Urine WBC 26-50 H 0-1 /HPF Urine WBC Clumps (Auto) MANY 0-1 /HPF Urine Squamous Epithelial Cells FEW 0-2 /HPF Urine Bacteria MANY None Seen /HPF Urine Hyaline Casts 2-5 H 0-1 /LPF /LPF Urine Random Creatinine 69.01 30-135 mg/dL Urine Random Sodium 28 L 40-220 mmol/l Urine Opiates Screen NEGATIVE NEGATIVE Urine Barbiturates Screen NEGATIVE NEGATIVE Urine Phencyclidine Screen NEGATIVE NEGATIVE Urine Amphetamines Screen NEGATIVE NEGATIVE Urine Benzodiazepines Screen NEGATIVE NEGATIVE Urine Cocaine Screen NEGATIVE NEGATIVE Urine Marijuana (THC) Screen NEGATIVE NEGATIVE Test 08/30/24 18:50 08/30/24 15:13 Range/Units Lactic Acid Level 1.5 0.8-2.5 mmol/L White Cell Morphology Comment See comments Erythrocyte Sedimentation Rate 113 H 0-20 MM/HR Prothrombin Time 11.9 H 9.6-11.6 SEC Prothromb Time International Ratio 1.14 0.85-1.15 Activated Partial Thromboplast Time 34.4 26.3-35.5 SEC Hemoglobin A1c 7.7 H 4.0-6.0 % Estimated Average Glucose (eAG) 174 H 70-126 mg/dL Direct Bilirubin 0.3 0.0-0.3 mg/dL Lactate Dehydrogenase 126 81-234 U/L Troponin I High Sensitivity 6 4-75 ng/L C-Reactive Protein, Quantitative 122.20 H 0.5-3.0 mg/L Procalcitonin 5.13 H 0.05-0.5 ng/mL Thyroid Stimulating Hormone (TSH) 0.86 # 0.36-3.74 uIU/mL DIAGNOSTICS / RADIOLOGY: EXAM: CR Left foot, 3 View. CLINICAL HISTORY: SEPSIS COMPARISON: Comparison: Radiograph dated September 21, 2016 Findings: AP, oblique, lateral views of the left foot are submitted. Interval amputation of the great toe from the distal metatarsal. There is edema and subcutaneous emphysema within the soft tissues overlying the first metatarsal. Presumed interval amputation of the second toe from the mid to distal second proximal phalanx and of the third toe from the distal interphalangeal joint. Clinical correlation is advised. There is suggestion of bone loss and cortical irregularities seen within the mid diaphyses of the 3rd and 4th proximal phalanxes. Findings may reflect osteomyelitis. Recommend contrast-enhanced MRI of the midfoot/forefoot for further evaluation. IMPRESSION: 1. Status post interval amputation of great toe, second toe, and third toe with soft tissue edema and subcutaneous emphysema overlying the first metatarsal. 2. Possible osteomyelitis of 3rd and 4th proximal phalanxes. Recommend MRI of the midfoot/forefoot for further evaluation. /[place] ASSESSMENT: This 64 year old male patient with current problems which include: 1. Possible osteomyelitis of the 3rd and 4th proximal phalanxes 2. Chronic kidney disease 3. Leukocytosis, improving 4. Diabetes mellitus 5. Peripheral Artery disease PLAN: 1. Continue Zyvox 2. Continue Zosyn 3. Continue diabetic medication 4. Monitor renal function 5. Did not want care 6. Continue pain management This case has been discussed with my supervising physician Dr. Stein. SHIRA PUGH [facility] Sep 01, 2024 14:19
[2024-09-01] MEDS: THIAMINE HCL 100 MG/ML 2ML VIAL IVP SCH (19:55)
--- NOTE | 2024-09-01 23:40 | CONS ---
INFECTIOUS DISEASE CONSULTATION NOTE DATE OF SERVICE: 08/31/2024. REQUESTING PHYSICIAN: Jj Correa MD REASON FOR CONSULTATION: Right foot gangrene and osteomyelitis. HISTORY OF PRESENT ILLNESS: A 64-year-old male with history of diabetes mellitus, peripheral vascular disease, right foot gangrene, who presented to the hospital with left foot pain, swelling and drainage. The patient also complained of fever. T-max in the Emergency Room was 100.0. WBC was 20,000. The patient was found with gangrene and was taken for surgery with a left foot transmetatarsal amputation. Blood culture growing Gram-negative rods. Urine toxicology was negative. Procalcitonin was elevated at 5.1. Denied cough, hemoptysis, or pleuritic pain. PAST MEDICAL HISTORY: * Hypertension. * Diabetes mellitus. * Peripheral vascular disease. * Right foot gangrene. * . * Osteomyelitis. PAST SURGICAL HISTORY: * Right below-knee amputation. * Angiogram of extremities. ALLERGIES: No known drug allergies. CURRENT MEDICATIONS: Include: * Zosyn. * Linezolid. * Insulin. * Tylenol. * Zofran. * Lovenox. SOCIAL HISTORY: Denied alcohol, tobacco, or illicit drug use. FAMILY HISTORY: Positive for diabetes mellitus. REVIEW OF SYSTEMS: CONSTITUTIONAL: Positive for fever, chills. No weight loss or night sweat. EYES: No eye pain. No photophobia or diplopia. HENT: No sore throat. No rhinorrhea or earache. NECK: No neck pain or neck swelling. RESPIRATORY: No cough. No hemoptysis or pleuritic pain. CARDIOVASCULAR: No chest pain. No palpitations or orthopnea. GASTROINTESTINAL: Denies nausea, vomiting, abdominal pain. GENITOURINARY: No dysuria, urgency, or urinary frequency. CENTRAL NERVOUS SYSTEM: No headache, dyspnea, or slurred speech. PSYCHIATRY: No depression, no suicidal ideation. MUSCULOSKELETAL: No joint pain. No joint swelling. PHYSICAL EXAMINATION: GENERAL: Elderly male, awake. VITAL SIGNS: Temperature 97.3, pulse 105, respirations 17, BP 117/63. EYES: No icterus. Pupils equal and reactive. HENT: No oral thrush seen. Moist oral mucosa. NECK: Supple. No JVD or thyromegaly. LUNGS: Good air entry. No rales, no rhonchi. CARDIOVASCULAR: S1, S2 regular. No murmur heard. ABDOMEN: Full, soft, nontender. Bowel sound is present. CENTRAL NERVOUS SYSTEM: Awake, alert, oriented x 3. No focal deficits. SKIN: No rashes, no itchiness. LYMPHATIC: There is inguinal lymphadenopathy. BACK: No deformity, no pressure ulcer. EXTREMITIES: Status post left foot transmetatarsal amputation . LABORATORY DATA: Procalcitonin 5.1. Hemoglobin A1c 7.7. Sodium 130, potassium 3.3, BUN 38, creatinine 1.9. WBC 14.9, hemoglobin 9.0, platelets 256. Urine toxicology negative. Blood culture growing Gram-negative rods. RADIOLOGY: X-ray of the left foot results reviewed. ASSESSMENT: A 64-year-old male admitted with fever; left foot pain, swelling, and redness. CURRENT PROBLEMS: Include: * Gram-negative bacteremia, sepsis. * Left foot gangrene, osteomyelitis, status post transmetatarsal amputation. * Diabetic foot ulcer. * Acute renal failure. * Left foot ulcer. * Debility. * Poorly controlled diabetes mellitus, A1c of 7.7. PLAN: * Continue linezolid. * Continue Zosyn. * Follow up culture. * Continue pain management. * Continue antidiabetic. * Continue nutritional support. * Monitor electrolytes. * The patient will be followed up closely. Thank you for allowing me to participate in the care of this patient. TID: [id number] RECEIPT: [id number] [facility]
[2024-09-02] VITALS (9 sets, daily range): BP systolic 99–120; BP diastolic 49–65; PULSE 81–97; RESP 16–20; TEMP 97.7–98.7; O2SAT 96–99
[2024-09-02 05:34] LABS: NUCLEATED RED BLOOD CELLS 0.0 % (0.0-0.19); PLATELET COUNT (AUTO) 245.0 K/uL (130-400); RED BLOOD CELL COUNT(AUTO) 2.81 MIL/uL (4.50-6.20); RED CELL DISTRIBUTION WIDTH 12.8 % (11.0-15.5); WHITE BLOOD COUNT (AUTO) 14.6 K/uL (4.8-10.8)
[2024-09-02 06:12] LABS: ASPARTATE AMINOTRANSFERASE 13.0 U/L (10-37); CREATINE KINASE, TOTAL 47.0 U/L (21-232); CREATININE 0.9 mg/dL (0.5-1.3); GLOMERULAR FILTR. RATE CALC 94.0 mL/min (>90); GLUCOSE,RANDOM 131.0 mg/dL (70-105); PHOSPHORUS 1.7 mg/dL (2.5-4.9); SODIUM SERUM 135.0 mmol/L (136-145); TOTAL PROTEIN, SERUM 5.5 g/dL (6.0-8.3); UREA NITROGEN, BLOOD 13.0 mg/dL (7-18)
--- NOTE | 2024-09-02 08:57 | PN ---
[facility] PROGRESS NOTE Date of Service: Sep 02, 2024 Time of Service: 08:54 SUBJECTIVE: This is a 63-year-old male with underlying history of poorly controlled type 2 diabetes mellitus, peripheral arterial disease, prior history of right [id number] amputation in 2020 due to right foot gangrene and necrotizing fasciitis. Patient presented to the emergency room August 30, 2024, with a chronic wounds involving toes to the foot, that according to him over the last several weeks has been getting more necrotic and foul smelling. He also reported having fever and chills. On presentation to the hospital, patient was noted to be febrile with T-max of 100.0 F, heart rate of 102, blood pressure of 81/50. [place] [address], hemoglobin of 10.3, platelet count of 713446. BMP remarkable for sodium of 125, potassium 5.1, chloride of 90, BUN of 52, creatinine 2.0, blood glucose of 180, CK of 436 cardiac panel showed troponin of six. Patient admitted for further treatment and management of wet gangrene of the right foot with suspected chronic osteomyelitis of the toes. Patient received IV fluids and IV antibiotics. Consultation with Podiatry, Infectious Disease requested. 08/31 patient remains admitted to the PCU, BP 130/63, afebrile, saturating normal on room air. Leukocytosis improving, today WBC 14.9. Creatinine better at 1.6. Results of blood culture Gram-negative rods, positive in two of two sets. X- ray of the left foot status post interval amputation great toe, 2nd toe, 3rd toe with soft tissue edema subcutaneous emphysema overlying the 1st metatarsal, possible osteomyelitis of the 3rd and 4th proximal phalanx. Arterial ultrasound mild intimal wall thickening in both lower limb arteries, both lower limb arteries demonstrate biphasic waveform in all arteries other family left posterior tibial, anterior tibial and dorsalis pedis which demonstrate monophasic waveform, no flow-limiting stenosis. Renal ultrasound normal kidneys, no hydronephrosis, mild debris is noted in the urinary bladder, cystitis should be excluded. Patient on broad-spectrum IV antibiotics with Zosyn and linezolid, ID and podiatry consulted, input noted and appreciated. Cardiology consultation requested as the patient with peripheral arterial disease. We will follow input and recommendation. Renal ultrasound normal, no hydronephrosis, creatinine improving, nephrology consulted, we will follow input and recommendation. During my visit the patient is comfortable, back in the room from having debridement, eating lunch, tolerating well, getting good pain control with current medical management, at bedside, updated. 09/01 Patient presented to the emergency room August 30, 2024, with a chronic wounds involving toes to the left foot. X-ray of the left foot status post interval amputation great toe, 2nd toe, 3rd toe with soft tissue edema subcutaneous emphysema overlying the 1st metatarsal, possible osteomyelitis of the 3rd and 4th proximal phalanx. Patient is status post transmetatarsal amputation the left foot 08/31/24. Tolerated the procedure well. Results of blood culture positive for Proteus mirabilis. Urine culture [id number] CFU, identification and susceptibility process. Patient Zosyn IV, continue to follow podiatry and ID input and recommendation. During my visit the patient is comfortable, eating lunch, tolerating well, alert oriented x3, getting IV antibiotics, denied chest pain, shortness shortness for breath, no nausea, no vomiting, getting good pain control with current medical management, plan of care discussed with the patient and the at bedside, all questions answered. Agreed and understood all the information provided. 09/02 Patient presented to the emergency room August 30, 2024, with a chronic wounds involving toes to the left foot. X-ray of the left foot status post interval amputation great toe, 2nd toe, 3rd toe with soft tissue edema subcutaneous emphysema overlying the 1st metatarsal, possible osteomyelitis of the 3rd and 4th proximal phalanx. Patient is status post transmetatarsal amputation the left foot 08/31/24. Tolerated the procedure well. Results of blood culture positive for Proteus mirabilis. Wound culture from the left foot positive for Proteus mirabilis, urine culture positive for E coli and Proteus mirabilis. Patient remains on broad-spectrum IV antibiotics with Zosyn until systolic IV, continue to follow podiatry and ID input and recommendation, continue local wound care. Consider care home facility versus [facility] for continuation of medical care. During my visit the patient remains comfortably in bed, alert oriented x3, case discussed with the RN, no acute events overnight, plan to downgraded to the medical floor. REVIEW OF SYSTEMS CONSTITUTIONAL: fevers, chills, malaise, poor oral intake NEUROLOGICAL: Denies headache, amaurosis fugax, motor weakness, sensory deficit, vertigo/spinning sensation, gait abnormalities, or tremors. ENT: No hearing loss, otalgia, otorrhea, rhinitis, rhinorrhea, hoarseness, or sore throat. CARDIOVASCULAR: Denies any exertional angina, dyspnea on exertion, orthopnea, paroxysmal nocturnal dyspnea, palpitations, life-threatening arrhythmias, claudication. PULMONARY: Denies any shortness of breath, cough, phlegm/sputum, hemoptysis, pleuritic chest pain. SLEEP: Denies morning headaches, daytime somnolence or napping. Denies difficulty falling asleep, staying asleep, waking from sleep. Denies knowledge of snoring. GASTROINTESTINAL: Denies any type of dysphagia to either liquids or solids. Denies nausea, vomiting, pyrosis, early satiety, abdominal pain, diarrhea, constipation, or changes in stool consistency or caliber. Denies coffee-ground emesis, hematemesis, hematochezia, or melanotic stools. GENITOURINARY: Denies frequency, urgency, nocturia, hematuria or incontinence (Storage/Irritative symptoms.) Low urinary stream, straining to void, urinary intermittency or hesitancy, splitting of the voiding stream, terminal dribbling. ENDOCRINOLOGIC: Hx of type 2 Diabetes mellitus HEMATOLOGIC: Denies thrombophilia/previous clots, or coagulopathy/bleeding disorders. ONCOLOGIC: Denies personal history of malignancy. DERMATOLOGIC: foul smelling necrotic toes of the left foot with non healing wounds PSYCHIATRIC: Denies any suicidal or homicidal ideation. Denies hallucinations. PHYSICAL EXAM GENERAL APPEARANCE: The patient is awake, alert, and oriented, in no acute cardiopulmonary distress. NEUROLOGICAL: Cranial nerves II-XII grossly intact. Motor is 5/5 in bilateral upper and lower extremities proximal to distal. No sensory deficits. HEENT: Face is symmetric. Pupils are equal and reactive. Extraocular movements are intact. NECK: Supple. No JVD. No thyromegaly. No submental, submandibular, pre- /postauricular, occipital or supraclavicular lymphadenopathy. CHEST: Normal chest expansion. No Telemetry. LUNGS: Absence of any rales, rhonchi or any wheezing. CARDIOVASCULAR: Regular. S1 and S2 normal. No appreciable rubs, murmurs or gallops. ABDOMEN: Soft, nontender, and nondistended. There is no rebound, voluntary guarding, or rigidity. : Deferred. No Sandhu. EXTREMITIES: Left foot noted to have extremely foul-smelling wound with necrotic toes noted from 2nd two fifth digit, area of erythema and surrounding cellulitic changes noted Vital Signs (last 8hr) Date Time Temp Pulse Resp B/P (MAP) Pulse Ox O2 Delivery O2 Flow Rate FiO2 09/02/24 04:07 97.9 81 16 114/60 97 Room Air LABS: Laboratory: Test 09/02/24 05:17 09/02/24 04:57 09/01/24 03:15 Range/Units White Blood Count 14.6 H 4.8-10.8 K/uL Red Blood Count 2.81 L 4.50-6.20 MIL/uL Hemoglobin 8.3 L 14.0-18.0 g/dL Hematocrit 25.5 L 42-54 % Mean Corpuscular Volume 90.7 79-99 fL Mean Corpuscular Hemoglobin 29.5 27.0-33.0 pg Mean Corpuscular Hemoglobin Concent 32.5 32.0-36.0 g/dL Red Cell Distribution Width 12.8 11.0-15.5 % Platelet Count 245 130-400 K/uL Mean Platelet Volume 10.2 7.5-10.5 fL Nucleated Red Blood Cells 0.0 0.0-0.19 % Sodium Level 135 L 136-145 mmol/L Potassium Level 3.7 3.5-5.1 mmol/L Chloride Level 101 101-111 mmol/L Carbon Dioxide Level 27 21-32 mmol/L Blood Urea Nitrogen 13 7-18 mg/dL Creatinine 0.9 0.5-1.3 mg/dL Glomerular Filtration Rate Calc 94 >90 mL/min Random Glucose 131 H 70-105 mg/dL Uric Acid 3.3 2.6-7.2 mg/dL Total Calcium 7.8 L 8.5-10.1 mg/dL Phosphorus Level 1.7 L 2.5-4.9 mg/dL Magnesium Level 1.90 1.80-2.40 mg/dL Total Bilirubin 0.5 0.2-1.0 mg/dL Aspartate Amino Transf (AST/SGOT) 13 10-37 U/L Alanine Aminotransferase (ALT/SGPT) 10 L 12-78 U/L Alkaline Phosphatase 50 50-136 U/L Total Creatine Kinase 47 # 21-232 U/L Total Protein 5.5 L 6.0-8.3 g/dL Albumin 1.9 L 3.5-5.0 g/dL Whole Blood Glucose 125 H 70-110 MG/DL Iron Level 21 #L 65-175 mcg/dL Total Iron Binding Capacity 82 L 250-450 mcg/dL Percent Iron Saturation 25.6 L 30-44 % Ferritin 1539 H 30-400 ng/mL Current Medications Medications (Trade) Dose Ordered Sig/Nathaly Route PRN Reason Start Time Stop Time Status Last Admin Dose Admin Acetaminophen (TYLenol 325MG TAB) 650 mg Q6H PRN PO MILD PAIN (1-3) 08/30/24 17:30 09/29/24 17:29 Betamethasone Valerate (Betamethasone Valerate) 1 APPLICATION TID TP 09/01/24 14:00 10/01/24 13:59 Cancel Clopidogrel Bisulfate (plaVIX 75MG) 75 mg DAILY PO 09/02/24 09:00 10/02/24 08:59 Dextrose (D50w) 50 ml AD PRN IV HYPOGLYCEMIA PROTOCOL 08/30/24 18:00 09/29/24 17:59 Glucagon (Glucagon 1mg Kit) 1 mg AD PRN IM HYPOGLYCEMIA PROTOCOL 08/30/24 18:00 09/29/24 17:59 Hydromorphone HCl (DiLAUDid 0.5MG INJ) 0.2 mg Q6H PRN IVP SEVERE PAIN (7-10) 08/30/24 17:30 09/04/24 17:29 Insulin Human Regular (humuLIN R 100 UNIT/ML 3ML) INSULIN SLIDING SCAL... ACHS SQ 08/30/24 21:00 09/29/24 20:59 09/01/24 16:50 3 UNIT Linezolid 300 ml @ 150 mls/hr Q12H IV 08/30/24 18:00 08/30/24 17:37 DC Linezolid 300 ml @ 150 mls/hr Q12H IV 08/30/24 20:00 09/09/24 19:59 09/01/24 19:55 150 MLS/HR Ondansetron HCl (zoFRAN 4MG INJ) 4 mg Q6H PRN IVP NAUSEA/VOMITING 08/30/24 17:30 09/29/24 17:29 Pharmacy Profile Note (Pharmacy Communication) 1 each ONCE MISC 08/30/24 17:30 09/01/24 07:16 DC 08/30/24 17:56 1 EACH Piperacillin Sod/ Tazobactam Sod (Zosyn 3.375gm+NS 50ml) 3.375 gm Q12H IVPB 08/30/24 21:00 08/31/24 06:42 DC 08/30/24 23:06 3.375 GM Piperacillin Sod/ Tazobactam Sod (Zosyn 3.375gm+NS 50ml) 3.375 gm Q8H IVPB 08/31/24 07:00 09/09/24 20:59 09/02/24 05:21 3.375 GM Sodium Chloride 1,000 ml @ 75 mls/hr [id number] IV 08/30/24 20:00 09/01/24 12:55 DC 08/31/24 22:29 75 MLS/HR Thiamine HCl (Vitamin B-1) 100 mg Q24H IVP 08/30/24 18:00 09/01/24 16:47 DC 08/31/24 18:33 100 MG Thiamine HCl (Vitamin B-1) 100 mg Q24H IVP 09/01/24 20:00 10/01/24 19:59 09/01/24 19:55 100 MG Vitamin B Complex/ Vit C/Folic Acid (Nephrovite Tablet) 1 cap DAILY PO 09/01/24 09:00 10/01/24 08:59 09/01/24 09:46 1 CAP DIAGNOSTICS / RADIOLOGY: [ ] ASSESSMENT: Gas/wet gangrene of the left foot with extensively necrotic toes and underlying acute osteo-myelitis of multiple toes, POA Sepsis, POA, (complicated soft tissue infection of the left foot with underlying osteomyelitis) POA Status post transmetatarsal amputation left foot 08/31/2024 Gram-negative bacteremia secondary secondary to Proteus mirabilis POA Urinary tract infection, secondary to E coli and Proteus mirabilis, POA Left foot wound culture positive for Proteus mirabilis Poorly controlled type 2 diabetes mellitus, POA Acute renal failure, POA Acute rhabdomyolysis, POA Anemia, POA Significant leukocytosis secondary to underlying septicemia, POA Moderate hyponatremia, POA Hx of right BKA, POA PLAN: Patient presented to the emergency room August 30, 2024, with a chronic wounds involving toes to the left foot. X-ray of the left foot status post interval amputation great toe, 2nd toe, 3rd toe with soft tissue edema subcutaneous em physema overlying the 1st metatarsal, possible osteomyelitis of the 3rd and 4th proximal phalanx. Patient is status post transmetatarsal amputation the left foot 08/31/24. Tolerated the procedure well. Results of blood culture positive for Proteus mirabilis. Wound culture from the left foot positive for Proteus mirabilis, urine culture positive for E coli and Proteus mirabilis. Patient remains on broad-spectrum IV antibiotics with Zosyn until systolic IV, continue to follow podiatry and ID input and recommendation, continue local wound care.Consider care home facility [facility] for continuation of medical care. NEURO: Minimize central acting medications as possible. Fall Precautions. Well lighted room through the day and minimize interruptions through the night to prevent acute delirium. PULMONARY: Supplemental 02 as needed BiPAP as necessary, for respiratory distress Titrate Fio2 to keep Spo2 > or = 90% DuoNebs and CPT as needed IS hourly while awake for pulmonary hygiene prn Out of bed to chair as tolerated Maintain aspiration precautions at all times CARDIOVASCULAR: Follow hemodynamics. Vital signs per facility protocol GI & NUTRITION: Continue nutritional support Aspirations precautions Prokinetic agents and laxatives as needed KIDNEYS & ELECTROLYTES: Strict monitoring of intake and output Daily weights Avoid nephrotoxic agents Monitor electrolytes and replace as needed Goal urine output of 30mL/hr or 0.5mL/kg/hr Medications to be dosed according to renal function. Avoid contrast if possible ENDOCRINE: Maintain blood glucose between 100-180 at all times. Insulin sliding scale for blood glucose management Hypoglycemia and hyperglycemia protocol in place INFECTIOUS DISEASE: Trend temperature, WBC and procalcitonin level Follow cultures, deescalate antibiotics as soon as possible. Panculture if new onset fever HEMATOLOGY & COAGULATION: Monitor H&H. Keep Hgb > 7 Transfuse 1 unit of PRBC for Hgb < 7 Transfuse 1 pack of platelets of platelets < 20, 000 Watch for any signs and symptoms of bleeding SKIN: Pressure ulcer prevention per facility protocol Specialty mattress as needed ORTHO/REHAB Continue PT/OT PRN: MEDICATIONS Tylenol 650 mg po every 4 hrs for fever zofran 4 mg IV every 6 hrs for n/v Hydralazine 5 mg IV every 4 hrs systolic pressure > 160 bowel regiment: lactulose 20 gm PO BID PRN constipation Supportive measures: Continue GI and DVT prophylaxis Disposition: Pending improvement in clinical condition All questions answered time spent: > 35 min JERO RICHARDS MD Sep 02, 2024 08:57
--- NOTE | 2024-09-02 09:49 | PN ---
SUBJECTIVE: The patient is a very pleasant 64-year-old diabetic male who is status post transmetatarsal amputation, left foot, transfer and repair of his extensor to his flexor hallucis longus tendons, complex layered primary wound closure of a highly modified surgical incision due to his gangrene and osteomyelitis affecting the left foot. The patient is afebrile at 98.1, pulse 84, respirations 16, blood pressure 102/59. White count 14.6, H and H 8.3/25.5, sedimentation rate 113, BUN and creatinine level 13 and 0.9, albumin 1.9, total protein 5.5, uric acid 3.3, hemoglobin A1c of 7.7. The patient has a CTA of his abdominal aorta with runoff pending. He has been evaluated by Cardiology for his circulation status. The patient's cultures have grown back Proteus mirabilis from his left foot wound, Escherichia coli and Proteus mirabilis from his urine; blood cultures, gram-negative rods in 2 of 2 sets from his blood cultures. The patient is currently receiving Zyvox and Zosyn. REVIEW OF SYSTEMS: CONSTITUTIONAL: Having no constitutional symptoms, mild pain to the left foot surgical site. HEENT: No problems with eyes, ears, nose, or throat. CARDIOVASCULAR: Having no current chest pain. RESPIRATORY: No shortness of breath. GENITOURINARY: He has urine cultures that are growing back Proteus mirabilis and Escherichia coli. ENDOCRINE: Diabetes. GASTROINTESTINAL: No dysphagia. PSYCHIATRIC: Denied any depression. MUSCULOSKELETAL: [id number] amputation on the right. INTEGUMENTARY: He has a transmetatarsal amputation on the left. ASSESSMENT: Status post transmetatarsal amputation on the left. Cultures are going back Proteus mirabilis from his surgical site, Proteus mirabilis and Escherichia coli from his urine. He has had blood cultures positive for gram-negative rods, [address] angiography has been ordered to evaluate his lower extremity circulation status. PLAN: We will continue with Betadine dressings and offloading measures. Keep the drain in place on that left side. Awaiting the results of his circulation evaluation by the cardiology service. Continue with broad-spectrum IV antibiotics per his culture and sensitivities. Continue with offloading measures. Continue with local wound care. Follow up the patient closely while in-house. TID: [id number] RECEIPT: [id number]
--- NOTE | 2024-09-02 10:11 | PN ---
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 He presented to emergency room for evaluation of left foot wounds. S/p left TMA by Dr. Lim He continues to be followed by Cardiology, pending recommendations He was noted to have worsening elevated BUN/creatinine We have been consulted for renal failure. Renal function and electrolytes are stable Hemoglobin has remained stable UA was negative Renal ultrasound showed normal kidneys with no hydronephrosis. He continues on antibiotics as per ID Blood cultures are positive for Proteus mirabilis He was seen in the medical floor, in no acute distress Family at the bedside Prognosis remains guarded REVIEW OF SYSTEMS: GENERAL: Positive for left foot wound. NEUROLOGIC: Negative for any blurry vision, blind spots, double vision, facial asymmetry, dysphagia, dysarthria, hemiparesis, hemisensory deficits, vertigo, ataxia. HEENT: Negative for any head trauma, neck trauma, neck stiffness, photophobia, phonophobia, sinusitis, rhinitis. CARDIAC: Negative for any chest pain, dyspnea on exertion, paroxysmal nocturnal dyspnea, peripheral edema. PULMONARY: Negative for any shortness of breath, wheezing, COPD, or TB exposure. GASTROINTESTINAL: Negative for any abdominal pain, nausea, vomiting, bright red blood per rectum, melena. GENITOURINARY: Negative for any dysuria, hematuria, incontinence. INTEGUMENTARY: Negative for any rashes, cuts, insect bites. RHEUMATOLOGIC: Negative for any joint pains, photosensitive rashes, history of vasculitis or kidney problems. HEMATOLOGIC: Negative for any abnormal bruising, frequent infections or bleeding. Vital Signs (last 8hr) Date Time Temp Pulse Resp B/P (MAP) Pulse Ox O2 Delivery O2 Flow Rate FiO2 09/02/24 07:00 98.1 84 16 102/59 100 Room Air 09/02/24 04:07 97.9 81 16 114/60 97 Room Air PHYSICAL EXAM: GENERAL: Alert and oriented x 3. No acute distress. Well-nourished. EYES: EOMI. Anicteric. HENT: Moist mucous membranes. No scleral icterus. No cervical lymphadenopathy. LUNGS: Clear to auscultation bilaterally. No accessory muscle use. CARDIOVASCULAR: Regular rate and rhythm. No murmur. No JVD. ABDOMEN: Soft, non-tender and non-distended. No palpable masses. EXTREMITIES: No edema. Non-tender. Right BKA, left TMA SKIN: No rashes or lesions. Warm. NEUROLOGIC: No focal neurological deficits. CN II-XII grossly intact, but not individually tested. PSYCHIATRIC: Cooperative. Appropriate mood and affect. Current Medications Medications (Trade) Dose Ordered Sig/Nathaly Route Start Time Stop Time Status Last Admin Dose Admin Betamethasone Valerate (Betamethasone Valerate) 1 APPLICATION TID TP 09/01/24 14:00 10/01/24 13:59 Cancel Clopidogrel Bisulfate (plaVIX 75MG) 75 mg DAILY PO 09/02/24 09:00 10/02/24 08:59 Insulin Human Regular (humuLIN R 100 UNIT/ML 3ML) INSULIN SLIDING SCAL... ACHS SQ 08/30/24 21:00 09/29/24 20:59 09/01/24 16:50 3 UNIT Linezolid 300 ml @ 150 mls/hr Q12H IV 08/30/24 18:00 08/30/24 17:37 DC Linezolid 300 ml @ 150 mls/hr Q12H IV 08/30/24 20:00 09/09/24 19:59 09/02/24 09:34 150 MLS/HR Pharmacy Profile Note (Pharmacy Communication) 1 each ONCE MISC 08/30/24 17:30 09/01/24 07:16 DC 08/30/24 17:56 1 EACH Piperacillin Sod/ Tazobactam Sod (Zosyn 3.375gm+NS 50ml) 3.375 gm Q12H IVPB 08/30/24 21:00 08/31/24 06:42 DC 08/30/24 23:06 3.375 GM Piperacillin Sod/ Tazobactam Sod (Zosyn 3.375gm+NS 50ml) 3.375 gm Q8H IVPB 08/31/24 07:00 09/09/24 20:59 09/02/24 05:21 3.375 GM Sodium Chloride 1,000 ml @ 75 mls/hr [id number] IV 08/30/24 20:00 09/01/24 12:55 DC 08/31/24 22:29 75 MLS/HR Thiamine HCl (Vitamin B-1) 100 mg Q24H IVP 08/30/24 18:00 09/01/24 16:47 DC 08/31/24 18:33 100 MG Thiamine HCl (Vitamin B-1) 100 mg Q24H IVP 09/01/24 20:00 10/01/24 19:59 09/01/24 19:55 100 MG Vitamin B Complex/ Vit C/Folic Acid (Nephrovite Tablet) 1 cap DAILY PO 09/01/24 09:00 10/01/24 08:59 09/02/24 09:34 1 CAP LABORATORY: [ ] Hematology Labs: Test 09/02/24 05:17 Range/Units White Blood Count 14.6 H 4.8-10.8 K/uL Red Blood Count 2.81 L 4.50-6.20 MIL/uL Hemoglobin 8.3 L 14.0-18.0 g/dL Hematocrit 25.5 L 42-54 % Mean Corpuscular Volume 90.7 79-99 fL Mean Corpuscular Hemoglobin 29.5 27.0-33.0 pg Mean Corpuscular Hemoglobin Concent 32.5 32.0-36.0 g/dL Red Cell Distribution Width 12.8 11.0-15.5 % Platelet Count 245 130-400 K/uL Mean Platelet Volume 10.2 7.5-10.5 fL Nucleated Red Blood Cells 0.0 0.0-0.19 % Chemistry Labs: Test 09/02/24 05:17 09/02/24 04:57 09/01/24 03:15 Range/Units Sodium Level 135 L 136-145 mmol/L Potassium Level 3.7 3.5-5.1 mmol/L Chloride Level 101 101-111 mmol/L Carbon Dioxide Level 27 21-32 mmol/L Blood Urea Nitrogen 13 7-18 mg/dL Creatinine 0.9 0.5-1.3 mg/dL Glomerular Filtration Rate Calc 94 >90 mL/min Random Glucose 131 H 70-105 mg/dL Uric Acid 3.3 2.6-7.2 mg/dL Total Calcium 7.8 L 8.5-10.1 mg/dL Phosphorus Level 1.7 L 2.5-4.9 mg/dL Magnesium Level 1.90 1.80-2.40 mg/dL Total Bilirubin 0.5 0.2-1.0 mg/dL Aspartate Amino Transf (AST/SGOT) 13 10-37 U/L Alanine Aminotransferase (ALT/SGPT) 10 L 12-78 U/L Alkaline Phosphatase 50 50-136 U/L Total Creatine Kinase 47 # 21-232 U/L Total Protein 5.5 L 6.0-8.3 g/dL Albumin 1.9 L 3.5-5.0 g/dL Whole Blood Glucose 125 H 70-110 MG/DL Iron Level 21 #L 65-175 mcg/dL Total Iron Binding Capacity 82 L 250-450 mcg/dL Percent Iron Saturation 25.6 L 30-44 % Ferritin 1539 H 30-400 ng/mL DIAGNOSTICS / RADIOLOGY: PATIENT: CHADD MAGDALENO MR#: [id number] : 1960 SEX: M AGE: 63 LOCATION: [facility] ORDER [id number] STATUS: ADM IN REPORT#: [id number] SERVICE 1735 REASON: rule out any significant lung infiltrates, sepsis, foot infection ORDERING PHYSICIAN: BRAULIO BRIDGES MD PROCEDURE: CXR1VW - CHEST 1VW EXAM: CR Chest, 1 View. CLINICAL HISTORY: rule out any significant lung infiltrates, sepsis, foot infection COMPARISON: 05/02/2017 FINDINGS: LUNGS: There is no mass, infiltrate, or acute pulmonary abnormality. PLEURAL SPACES: No pleural effusion or pneumothorax. MEDIASTINUM: Cardiac size and mediastinal contours within normal limits. BONES: No aggressive appearing osseous lesion seen. IMPRESSION: No acute cardiopulmonary pathology is evident. /[place] DICTATED BY: PATRICIA LAWSON MD DATE: 08/30/242003 REASON: acute renal failure, uncontrolled DM II ORDERING PHYSICIAN: BRAULIO BRIDGES MD PROCEDURE: RENAL - US RENAL SONOGRAM EXAMINATION: Renal ultrasound. COMPARISON: None provided. HISTORY: acute renal failure, uncontrolled DM II FINDINGS: The right kidney measures 9.9 cm and is normal in echotexture. The left kidney measures 9.2 cm and is normal in echotexture. There are no focal renal lesions. There are no renal stones. There is no hydronephrosis. There is mild debris noted in the urinary bladder. Cystitis should be excluded. IMPRESSION: Normal kidneys. No hydronephrosis Mild debris noted in the urinary bladder. Cystitis should be excluded. /[place] DICTATED BY: PATRICIA LAWSON MD DATE: 08/30/242022 PATIENT: CHADD MAGDALENO MR#: [id number] : 1960 SEX: M AGE: 63 LOCATION: [facility] ORDER 23 STATUS: ADM IN REPORT#: [id number] SERVICE 16 REASON: non healing left foot wound with necrotic toes, assess for severe PAD ORDERING PHYSICIAN: BRAULIO BRIDGES MD PROCEDURE: ART B LE - US ARTERIAL BILAT LOW EXT DUPL EXAMINATION: DUPLEX ULTRASOUND EXAMINATION OF THE BILATERAL LOWER EXTREMITY ARTERIES. CLINICAL HISTORY: Non-healing wound in the left, to assess for peripheral arterial disease. COMPARISON: Lower extremity arterial doppler dated 12/29/2020. FINDINGS: Peak systolic velocities within the right lower arteries are as follows: Common femoral artery: 56 cm/s. Superficial femoral artery: 55 cm/s at proximal, 71 cm/s at mid, and 50 cm/s at distal segments. Popliteal artery: 28 cm/s at proximal and 37 cm/s at distal segments. The right lower limb arteries demonstrate biphasic waveforms in all arteries. The below knee arteries are not assessed, post amputation status. Peak systolic velocities within the left lower arteries are as follows: Common femoral artery: 66 cm/s. Superficial femoral artery: 71 cm/s at proximal, 72 cm/s at mid, and 72 cm/s at distal segments. Popliteal artery: 56 cm/s at proximal and 55 cm/s at distal segments. Posterior tibial artery: 30 cm/s. Anterior tibial artery: 47 cm/s. Dorsalis pedis artery: 67 cm/s. The left lower limb arteries demonstrate biphasic waveforms in all arteries other than posterior tibial, anterior tibial, and dorsalis pedis arteries which demonstrate monophasic waveforms. There is intimal wall thickening in both lower limb arteries. IMPRESSION: Mild intimal wall thickening in both the lower limb arteries. Both lower limb arteries demonstrate biphasic waveforms in all arteries other than left posterior tibial, anterior tibial, and dorsalis pedis arteries which demonstrate monophasic waveforms. No flow limiting lesions. /[place] DICTATED BY: PATRICIA LAWSON MD DATE: 08/30/242034 PATIENT: CHADD MAGDALENO MR#: [id number] : 1960 SEX: M AGE: 63 LOCATION: [facility] ORDER 1501 STATUS: ADM IN REPORT#: [id number] SERVICE 1500 REASON: SEPSIS ORDERING PHYSICIAN: IVON UNDERWOOD MD PROCEDURE: FT 3VW LT - FOOT COMP 3+VWS LT EXAM: CR Left foot, 3 View. CLINICAL HISTORY: SEPSIS COMPARISON: Comparison: Radiograph dated September 21, 2016 Findings: AP, oblique, lateral views of the left foot are submitted. Interval amputation of the great toe from the distal metatarsal. There is edema and subcutaneous emphysema within the soft tissues overlying the first metatarsal. Presumed interval amputation of the second toe from the mid to distal second proximal phalanx and of the third toe from the distal interphalangeal joint. Clinical correlation is advised. There is suggestion of bone loss and cortical irregularities seen within the mid diaphyses of the 3rd and 4th proximal phalanxes. Findings may reflect osteomyelitis. Recommend contrast-enhanced MRI of the midfoot/forefoot for further evaluation. IMPRESSION: 1. Status post interval amputation of great toe, second toe, and third toe with soft tissue edema and subcutaneous emphysema overlying the first metatarsal. 2. Possible osteomyelitis of 3rd and 4th proximal phalanxes. Recommend MRI of the midfoot/forefoot for further evaluation. /[place] DICTATED BY: GISEL CHACON Jr., MD DATE: 08/30/24 949 ASSESSMENT: Acute renal failure Acute rhabdomyolysis Anemia Hyponatremia Sepsis Blood culture positive for Gram-negative rods Gas/wet gangrene of the left foot with extensively necrotic toes and underlying acute osteo-myelitis of multiple toe Poorly controlled type 2 diabetes mellitus Significant leukocytosis secondary to underlying septicemia PLAN: Labs, diagnostic, radiologic exams reviewed and interpreted by myself and supervising physician. We have reviewed external records in detail Fluid restriction is advised Require close monitoring of renal function and electrolytes Order CBC, CMP, uric acid and electrolytes in am Continue with antibiotics BiPAP as necessary, for respiratory distress Monitor blood pressure adjust medication doses as needed Avoid hypotensive episodes May use Dilaudid 0.5 mg IV every 6 hours as needed for severe pain Monitor blood sugars Strict intake, output, and daily weight should be monitored Please renally adjust medications Avoid nephrotoxic and nonsteroidal drugs Avoid contrast if possible Will continue to monitor renal function, anemia, electrolytes Treatment plan discussed with patient Questions were answered We have discussed with the other team physicians in detail about the care plan We will continue to monitor the patient closely ATTESTATION BY PHYSICIAN I have seen and examined the patient. I reviewed the documentation, medical decision making, and treatment plan as noted by the mid-level provider above. I agree with the findings and plan of care. EMMIE KRAMER MD, [facility] Sep 02, 2024 10:11
--- NOTE | 2024-09-02 10:29 | PN ---
[facility] CARDIOLOGY PROGRESS NOTE Date Patient Seen: Sep 02, 2024 Time of Visit: 10:21 Interval History: This is a 64-year-old [place] male with a past medical history of type 2 diabetes mellitus, peripheral artery disease status post right BKA 2020, normocytic normochromic anemia, probable chronic kidney disease stage 3 with admission creatinine of 2 and noncompliance with medical care and follow-up. He reports he has no primary care physician as an outpatient mainly by choice. The patient presented here on 08/30/2024 with foul-smelling discharge from the left foot wound with necrosis. He was found to have sepsis with gangrene of the left foot and extensive necrosis into the toes and osteomyelitis and multiple toes of the left foot. His admission labs were remarkable for sodium of 125, potassium 5.1, CO2 24 and chloride of 90, BUN 52 and creatinine of 2.0 and CK of 436. Troponin was normal. CRP was 122. Hemoglobin A1c of 7.7. He has been seen and evaluated by Dr. Lim and the patient underwent a transmetatarsal amputation of the left foot with partial medial cuneiformectomy, transfer of the extensor hallucis longus to the flexor hallucis longus tendon, complex layered primary wound closure of a highly modified 22 cm surgical incision on 08/31/2024. Cardiology was involved on 08/30/2024 after he was found to have abnormal arterial Doppler study demonstrating monophasic waveforms involving the infrapopliteal vessels on the left. He was evaluated by Dr. Vickey Villalpando who preferred evaluation with a CT angiogram with left lower extremity runoff but his creatinine at the time was 2.0. The patient offers no complaints overnight. He is thin, cachectic looking and admits to not caring for himself as an outpatient with no primary follow-up for his diabetes management. He offers no complaints overnight. His creatinine has normalized to a creatinine of 0.9. His CK is also normalized to a CK of 47 today. Physical Examination: GENERAL: No acute distress. HEAD: Normal with no signs of head trauma. EYES: PERRLA, EOMI, conjunctiva and sclera normal. NECK: Supple without JVD. There is no tenderness, lymphadenopathy, or masses. No thyromegaly. Normal carotid upstrokes without bruits. LUNGS: Clear breath sounds bilaterally. No wheezes, or rhonchi. HEART: Normal rate and rhythm. Normal S1 and S2 without murmurs, gallop or rub. VASC: There is a right BKA that is old and he has a new left TMA with dressing to the left partial foot. There are areas of scattered excoriation to the left lower extremity EXT: No clubbing, cyanosis or edema. NEURO: Awake, alert, and oriented x3. No focal neurological deficits noted. Laboratory: Hematology Labs: Test 09/02/24 05:17 Range/Units White Blood Count 14.6 H 4.8-10.8 K/uL Red Blood Count 2.81 L 4.50-6.20 MIL/uL Hemoglobin 8.3 L 14.0-18.0 g/dL Hematocrit 25.5 L 42-54 % Mean Corpuscular Volume 90.7 79-99 fL Mean Corpuscular Hemoglobin 29.5 27.0-33.0 pg Mean Corpuscular Hemoglobin Concent 32.5 32.0-36.0 g/dL Red Cell Distribution Width 12.8 11.0-15.5 % Platelet Count 245 130-400 K/uL Mean Platelet Volume 10.2 7.5-10.5 fL Nucleated Red Blood Cells 0.0 0.0-0.19 % Chemistry Labs: Test 09/02/24 05:17 09/02/24 04:57 09/01/24 03:15 Range/Units Sodium Level 135 L 136-145 mmol/L Potassium Level 3.7 3.5-5.1 mmol/L Chloride Level 101 101-111 mmol/L Carbon Dioxide Level 27 21-32 mmol/L Blood Urea Nitrogen 13 7-18 mg/dL Creatinine 0.9 0.5-1.3 mg/dL Glomerular Filtration Rate Calc 94 >90 mL/min Random Glucose 131 H 70-105 mg/dL Uric Acid 3.3 2.6-7.2 mg/dL Total Calcium 7.8 L 8.5-10.1 mg/dL Phosphorus Level 1.7 L 2.5-4.9 mg/dL Magnesium Level 1.90 1.80-2.40 mg/dL Total Bilirubin 0.5 0.2-1.0 mg/dL Aspartate Amino Transf (AST/SGOT) 13 10-37 U/L Alanine Aminotransferase (ALT/SGPT) 10 L 12-78 U/L Alkaline Phosphatase 50 50-136 U/L Total Creatine Kinase 47 # 21-232 U/L Total Protein 5.5 L 6.0-8.3 g/dL Albumin 1.9 L 3.5-5.0 g/dL Whole Blood Glucose 125 H 70-110 MG/DL Iron Level 21 #L 65-175 mcg/dL Total Iron Binding Capacity 82 L 250-450 mcg/dL Percent Iron Saturation 25.6 L 30-44 % Ferritin 1539 H 30-400 ng/mL Diagnostics / Radiology: Bilateral lower extremity arterial Doppler study 08/30/2024: IMPRESSION: Mild intimal wall thickening in both the lower limb arteries. Both lower limb arteries demonstrate biphasic waveforms in all arteries other than left posterior tibial, anterior tibial, and dorsalis pedis arteries which demonstrate monophasic waveforms. No flow limiting lesions. 2D echocardiogram 09/01/2024: LVEF is 50-55%. Stage I diastolic dysfunction. There is normal LV segmental wall motion. Aortic valve NCC leaflets mild calcified. Trace aortic regurgitation. The mitral valve is mildly thickened. Mild posterior mitral annular calcification present. Impression and Plan: Sepsis secondary to left foot infection/osteomyelitis: Proteus mirabilis bacteremia: Gangrene of the left foot with extensively necrotic toes and underlying acute osteomyelitis of multiple toes: Status post transmetatarsal amputation of the left foot with partial medial cuneiformectomy, transfer of the extensor hallucis longus to the flexor hallucis longus tendon, complex layered primary wound closure of a highly modified 22 cm surgical incision on 08/31/2024: -continue management and wound care per primary team and Dr. Lim Peripheral artery disease with monophasic waveforms in the left infrapopliteal vessels: -proceed with a CT angiogram of the abdominal aorta with left lower extremity runoff today -we will have Dr. Villalpando review images in a.m. and further recommendations pending results of CT angiogram. -today he continues with leukocytosis and hemoglobin of 8.4, not an ideal candidate at this time for any invasive assessment. -continue clopidogrel 75 mg p.o. daily -begin atorvastatin 40 mg p.o. daily , CK has normalized -lipid panel is pending and target an LDL of 55 or less Acute likely on chronic renal failure with admission creatinine of 2.0: -likely related to sepsis, gangrene and volume depletion -creatinine has normalized to 0.9 -nephrology is following Normal LVEF of 50-55% and stage I diastolic dysfunction on 2D echocardiogram 09/01/2024 Malnutrition and likely volume depletion on admission Noncompliance Poorly controlled type 2 diabetes mellitus with hemoglobin A1c of 7.7 Chronic normocytic normochromic anemia Hyponatremia History of right BKA 2020 PHYSICIAN ATTESTATION OF PHYSICIAN CRUSHER [employer]ICA DOCUMENTATION: I attest that I was physically present for the vargas portions of the service and evaluated the patient with the Physician Electronic Publications Specialist, and I reviewed and discussed the case with the Physician Electronic Publications Specialist and made modifications to the Physician Electronic Publications Specialist's findings and plans of care as documented above KANIKA CROFT Sep 02, 2024 10:29 RENEA OCHOA MD Sep 02, 2024 15:26
[2024-09-02 10:54] LABS: LDL DIRECT 37 mg/dL (0-99)
[2024-09-02] MEDS ORDERED: IOHEXOL 350 MG/ML 100ML INFUS..BTL IV ONE (12:19)
[2024-09-02] MEDS ORDERED: IOHEXOL-350 50ML VIAL IV ONE (12:19)
--- NOTE | 2024-09-02 13:38 | NUR ---
[facility] ON UNIT PT arrived on unit via stretcher. A&Ox4 able to make needs known, denies pain or discomfort. Resp= & unlabored bilat. Request time to eat before this nurse begins the physical assessment Addendum: 09/02/24 at 1345 by ADALID LOVE RN RN PT arrived on unit @ 1250
[2024-09-03] VITALS (8 sets, daily range): BP systolic 88–108; BP diastolic 52–55; PULSE 83–90; RESP 16–20; TEMP 98–98.3; O2SAT 98–99
[2024-09-03 04:28] LABS: NUCLEATED RED BLOOD CELLS 0.0 % (0.0-0.19); PLATELET COUNT (AUTO) 271.0 K/uL (130-400); RED BLOOD CELL COUNT(AUTO) 2.81 MIL/uL (4.50-6.20); RED CELL DISTRIBUTION WIDTH 12.9 % (11.0-15.5); WHITE BLOOD COUNT (AUTO) 16.5 K/uL (4.8-10.8)
[2024-09-03 04:49] LABS: ASPARTATE AMINOTRANSFERASE 14.0 U/L (10-37); CREATININE 1.0 mg/dL (0.5-1.3); GLOMERULAR FILTR. RATE CALC 83.0 mL/min (>90); GLUCOSE,RANDOM 116.0 mg/dL (70-105); SODIUM SERUM 135.0 mmol/L (136-145); TOTAL PROTEIN, SERUM 5.8 g/dL (6.0-8.3); UREA NITROGEN, BLOOD 12.0 mg/dL (7-18)
--- NOTE | 2024-09-03 07:45 | PN ---
INFECTIOUS DISEASE FOLLOWUP NOTE DATE OF SERVICE: 09/02/2024 SUBJECTIVE: The patient is seen and examined at bedside. No fever or chills. Tolerating antibiotics. No palpitations or orthopnea. No depression. No suicidal ideation. . No new neck pain, no neck swelling. No diarrhea. PHYSICAL EXAMINATION: VITAL SIGNS: Temperature 97.8. EYES: No icterus. Pupils are equal and reactive. HENT: No oral thrush seen. Moist oral mucosa. NECK: Supple. No JVD or thyromegaly. LUNGS: Good air entry. No rales, no rhonchi. CARDIOVASCULAR: S1, S2 regular. No murmur heard. ABDOMEN: Full, soft, bowel sound is present. CENTRAL NERVOUS SYSTEM: Awake, alert, oriented x 3. No focal deficits. SKIN: No rashes. No itchiness. LYMPHATIC: There is inguinal lymphadenopathy. BACK: No deformity, no pressure ulcer. HEMATOLOGIC: No bleeding or petechial lesion seen. EXTREMITIES: Status post right below-knee amputation is well healed, status post left foot transmetatarsal amputation. incision. ASSESSMENT: A 64-year-old male with multiple problems, which include: * Sepsis. * Left foot osteomyelitis. * Diabetic foot ulcer. * UTI. * Diabetes mellitus. * Peripheral vascular disease. * Debility. * Malnutrition. PLAN: * Continue Zosyn. * Continue linezolid. * Continue wound care. * Continue pain management. * Continue antidiabetic. * Continue nutritional support. * Monitor electrolytes. * The patient will be followed up closely. TID: [id number] RECEIPT: [id number]
--- NOTE | 2024-09-03 10:13 | PN ---
[facility] PROGRESS NOTE Date of Service: Sep 03, 2024 Time of Service: 10:11 SUBJECTIVE: This is a 63-year-old male with underlying history of poorly controlled type 2 diabetes mellitus, peripheral arterial disease, prior history of right [id number] amputation in 2020 due to right foot gangrene and necrotizing fasciitis. Patient presented to the emergency room August 30, 2024, with a chronic wounds involving toes to the foot, that according to him over the last several weeks has been getting more necrotic and foul smelling. He also reported having fever and chills. On presentation to the hospital, patient was noted to be febrile with T-max of 100.0 F, heart rate of 102, blood pressure of 81/50. Labs [place] [address], hemoglobin of 10.3, platelet count of 460800. BMP remarkable for sodium of 125, potassium 5.1, chloride of 90, BUN of 52, creatinine 2.0, blood glucose of 180, CK of 436 cardiac panel showed troponin of six. Patient admitted for further treatment and management of wet gangrene of the right foot with suspected chronic osteomyelitis of the toes. Patient received IV fluids and IV antibiotics. Consultation with Podiatry, Infectious Disease requested. 08/31 patient remains admitted to the PCU, BP 130/63, afebrile, saturating normal on room air. Leukocytosis improving, today WBC 14.9. Creatinine better at 1.6. Results of blood culture Gram-negative rods, positive in two of two sets. X- ray of the left foot status post interval amputation great toe, 2nd toe, 3rd toe with soft tissue edema subcutaneous emphysema overlying the 1st metatarsal, possible osteomyelitis of the 3rd and 4th proximal phalanx. Arterial ultrasound mild intimal wall thickening in both lower limb arteries, both lower limb arteries demonstrate biphasic waveform in all arteries other family left posterior tibial, anterior tibial and dorsalis pedis which demonstrate monophasic waveform, no flow-limiting stenosis. Renal ultrasound normal kidneys , no hydronephrosis, mild debris is noted in the urinary bladder, cystitis should be excluded. Patient on broad-spectrum IV antibiotics with Zosyn and linezolid, ID and podiatry consulted, input noted and appreciated. Cardiology consultation r equested as the patient with peripheral arterial disease. We will follow input and recommendation. Renal ultrasound normal, no hydronephrosis, creatinine improving, nephrology consulted, we will follow input and recommendation. During my visit the patient is comfortable, back in the room from having debridement, eating lunch, tolerating well, getting good pain control with curre nt medical management, at bedside, updated. 09/01 Patient presented to the emergency room August 30, 2024, with a chronic wounds involving toes to the left foot. X-ray of the left foot status post interval amputation great toe, 2nd toe, 3rd toe with soft tissue edema subcutaneous emphysema overlying the 1st metatarsal, possible osteomyelitis of the 3rd and 4th proximal phalanx. Patient is status post transmetatarsal amputation the left foot 08/31/24. Tolerated the procedure well. Results of blood culture positive for Proteus mirabilis. Urine culture [id number] CFU, identification and susceptibility process. Patient Zosyn IV, continue to follow podiatry and ID input and recommendation. During my visit the patient is comfortable, eating lunch, tolerating well, alert oriented x3, getting IV antibiotics, denied chest pain, shortness shortness for breath, no nausea, no vomiting, getting good pain control with current medical management, plan of care discussed with the patient and the at bedside, all questions answered. Agreed and understood all the information provided. 09/02 Patient presented to the emergency room August 30, 2024, with a chronic wounds involving toes to the left foot. X-ray of the left foot status post interval amputation great toe, 2nd toe, 3rd toe with soft tissue edema subcutaneous emphysema overlying the 1st metatarsal, possible osteomyelitis of the 3rd and 4th proximal phalanx. Patient is status post transmetatarsal amputation the left foot 08/31/24. Tolerated the procedure well. Results of blood culture positive for Proteus mirabilis. Wound culture from the left foot positive for Proteus mirabilis, urine culture positive for E coli and Proteus mirabilis. Patient remains on broad-spectrum IV antibiotics with Zosyn until systolic IV, continue to follow podiatry and ID input and recommendation, continue local wound care. Consider [facility] facility versus [facility] for continuation of medical care. During my visit the patient remains comfortably in bed, alert oriented x3, case discussed with the RN, no acute events overnight, plan to downgraded to the medical floor. 09/03 Seen and examined. Vitals are stable. White count is 16.5, H&H 8.3/25.3, CMP is stable. S/p TMA of Left foot with partial medial cuneiformectomy, transfer of the extensor hallucis longus to the flexor hallucis longus tendon, complex layered primary wound closure of a highly modified 22cm surgical incision by Dr. Lim on 08/31/24. Initial blood cultures are growing Proteus mirabilis, repeat blood cultures negative so far, intraoperative cultures positive for Proteus mirabilis and Staphylococcus aureus. Urine cultures growing ESBL E coli and Proteus mirabilis. CT angio results are pending. No incidences reported overnight. REVIEW OF SYSTEMS CONSTITUTIONAL: fevers, chills, malaise, poor oral intake NEUROLOGICAL: Denies headache, amaurosis fugax, motor weakness, sensory deficit, vertigo/spinning sensation, gait abnormalities, or tremors. ENT: No hearing loss, otalgia, otorrhea, rhinitis, rhinorrhea, hoarseness, or sore throat. CARDIOVASCULAR: Denies any exertional angina, dyspnea on exertion, orthopnea, paroxysmal nocturnal dyspnea, palpitations, life-threatening arrhythmias, claudication. PULMONARY: Denies any shortness of breath, cough, phlegm/sputum, hemoptysis, pleuritic chest pain. SLEEP: Denies morning headaches, daytime somnolence or napping. Denies difficulty falling asleep, staying asleep, waking from sleep. Denies knowledge of snoring. GASTROINTESTINAL: Denies any type of dysphagia to either liquids or solids. Denies nausea, vomiting, pyrosis, early satiety, abdominal pain, diarrhea, constipation, or changes in stool consistency or caliber. Denies coffee-ground emesis, hematemesis, hematochezia, or melanotic stools. GENITOURINARY: Denies frequency, urgency, nocturia, hematuria or incontinence (Storage/Irritative symptoms.) Low urinary stream, straining to void, urinary intermittency or hesitancy, splitting of the voiding stream, terminal dribbling. ENDOCRINOLOGIC: Hx of type 2 Diabetes mellitus HEMATOLOGIC: Denies thrombophilia/previous clots, or coagulopathy/bleeding disorders. ONCOLOGIC: Denies personal history of malignancy. DERMATOLOGIC: foul smelling necrotic toes of the left foot with non healing wounds PSYCHIATRIC: Denies any suicidal or homicidal ideation. Denies hallucinations. PHYSICAL EXAM GENERAL APPEARANCE: The patient is awake, alert, and oriented, in no acute cardiopulmonary distress. NEUROLOGICAL: Cranial nerves II-XII grossly intact. Motor is 5/5 in bilateral upper and lower extremities proximal to distal. No sensory deficits. HEENT: Face is symmetric. Pupils are equal and reactive. Extraocular movements are intact. NECK: Supple. No JVD. No thyromegaly. No submental, submandibular, pre- /postauricular, occipital or supraclavicular lymphadenopathy. CHEST: Normal chest expansion. No Telemetry. LUNGS: Absence of any rales, rhonchi or any wheezing. CARDIOVASCULAR: Regular. S1 and S2 normal. No appreciable rubs, murmurs or gallops. ABDOMEN: Soft, nontender, and nondistended. There is no rebound, voluntary guarding, or rigidity. : Deferred. No Sandhu. EXTREMITIES: Left foot noted to have extremely foul-smelling wound with necrotic toes noted from 2nd two fifth digit, area of erythema and surrounding cellulitic changes noted Vital Signs (last 8hr) Date Time Temp Pulse Resp B/P (MAP) Pulse Ox O2 Delivery O2 Flow Rate FiO2 09/03/24 08:17 98.2 90 20 102/55 99 Room Air 09/03/24 03:43 98.1 89 16 108/54 96 Room Air LABS: Laboratory: Test 09/03/24 05:28 09/03/24 03:22 09/02/24 15:44 09/02/24 05:17 Range/Units Whole Blood Glucose 109 70-110 MG/DL White Blood Count 16.5 H 4.8-10.8 K/uL Red Blood Count 2.81 L 4.50-6.20 MIL/uL Hemoglobin 8.3 L 14.0-18.0 g/dL Hematocrit 25.3 L 42-54 % Mean Corpuscular Volume 90.0 79-99 fL Mean Corpuscular Hemoglobin 29.5 27.0-33.0 pg Mean Corpuscular Hemoglobin Concent 32.8 32.0-36.0 g/dL Red Cell Distribution Width 12.9 11.0-15.5 % Platelet Count 271 130-400 K/uL Mean Platelet Volume 10.5 7.5-10.5 fL Nucleated Red Blood Cells 0.0 0.0-0.19 % Sodium Level 135 L 136-145 mmol/L Potassium Level 3.8 3.5-5.1 mmol/L Chloride Level 100 L 101-111 mmol/L Carbon Dioxide Level 26 21-32 mmol/L Blood Urea Nitrogen 12 7-18 mg/dL Creatinine 1.0 0.5-1.3 mg/dL Glomerular Filtration Rate Calc 83 >90 mL/min Random Glucose 116 H 70-105 mg/dL Total Calcium 8.0 L 8.5-10.1 mg/dL Magnesium Level 1.90 1.80-2.40 mg/dL Total Bilirubin 0.8 # 0.2-1.0 mg/dL Aspartate Amino Transf (AST/SGOT) 14 10-37 U/L Alanine Aminotransferase (ALT/SGPT) 7 L 12-78 U/L Alkaline Phosphatase 57 50-136 U/L Total Protein 5.8 L 6.0-8.3 g/dL Albumin 1.9 L 3.5-5.0 g/dL Bedside Glucose Comment Notified Nurse Uric Acid 3.3 2.6-7.2 mg/dL Phosphorus Level 1.7 L 2.5-4.9 mg/dL Total Creatine Kinase 47 # 21-232 U/L Triglycerides Level 75 30-200 mg/dL Cholesterol Level 70 <200 mg/dL LDL Cholesterol 37 0-99 mg/dL HDL Cholesterol 21 L 29-71 mg/dL Current Medications Medications (Trade) Dose Ordered Sig/Nathaly Route PRN Reason Start Time Stop Time Status Last Admin Dose Admin Acetaminophen (TYLenol 325MG TAB) 650 mg Q6H PRN PO MILD PAIN (1-3) 08/30/24 17:30 09/29/24 17:29 Betamethasone Valerate (Betamethasone Valerate) 1 APPLICATION TID TP 09/01/24 14:00 10/01/24 13:59 Cancel Clopidogrel Bisulfate (plaVIX 75MG) 75 mg DAILY PO 09/02/24 09:00 10/02/24 08:59 09/03/24 09:08 75 MG Dextrose (D50w) 50 ml AD PRN IV HYPOGLYCEMIA PROTOCOL 08/30/24 18:00 09/29/24 17:59 Glucagon (Glucagon 1mg Kit) 1 mg AD PRN IM HYPOGLYCEMIA PROTOCOL 08/30/24 18:00 09/29/24 17:59 Hydromorphone HCl (DiLAUDid 0.5MG INJ) 0.2 mg Q6H PRN IVP SEVERE PAIN (7-10) 08/30/24 17:30 09/04/24 17:29 Insulin Human Regular (humuLIN R 100 UNIT/ML 3ML) INSULIN SLIDING SCAL... ACHS SQ 08/30/24 21:00 09/29/24 20:59 09/02/24 16:30 5 UNIT Linezolid 300 ml @ 150 mls/hr Q12H IV 08/30/24 18:00 08/30/24 17:37 DC Linezolid 300 ml @ 150 mls/hr Q12H IV 08/30/24 20:00 09/09/24 19:59 09/03/24 08:58 150 MLS/HR Ondansetron HCl (zoFRAN 4MG INJ) 4 mg Q6H PRN IVP NAUSEA/VOMITING 08/30/24 17:30 09/29/24 17:29 Pharmacy Profile Note (Pharmacy Communication) 1 each ONCE MISC 08/30/24 17:30 09/01/24 07:16 DC 08/30/24 17:56 1 EACH Piperacillin Sod/ Tazobactam Sod (Zosyn 3.375gm+NS 50ml) 3.375 gm Q12H IVPB 08/30/24 21:00 08/31/24 06:42 DC 08/30/24 23:06 3.375 GM Piperacillin Sod/ Tazobactam Sod (Zosyn 3.375gm+NS 50ml) 3.375 gm Q8H IVPB 08/31/24 07:00 09/09/24 20:59 09/03/24 06:27 3.375 GM Sodium Chloride 1,000 ml @ 75 mls/hr [id number] IV 08/30/24 20:00 09/01/24 12:55 DC 08/31/24 22:29 75 MLS/HR Thiamine HCl (Vitamin B-1) 100 mg Q24H IVP 08/30/24 18:00 09/01/24 16:47 DC 08/31/24 18:33 100 MG Thiamine HCl (Vitamin B-1) 100 mg Q24H IVP 09/01/24 20:00 10/01/24 19:59 09/02/24 20:50 100 MG Vitamin B Complex/ Vit C/Folic Acid (Nephrovite Tablet) 1 cap DAILY PO 09/01/24 09:00 10/01/24 08:59 09/03/24 08:58 1 CAP DIAGNOSTICS / RADIOLOGY: [ ] ASSESSMENT: Gas/wet gangrene of the left foot with extensively necrotic toes and underlying acute osteo-myelitis of multiple toes, POA Sepsis, POA, (complicated soft tissue infection of the left foot with underlying osteomyelitis) POA Status post transmetatarsal amputation left foot 08/31/2024 Gram-negative bacteremia secondary secondary to Proteus mirabilis POA Urinary tract infection, secondary to E coli and Proteus mirabilis, POA Left foot wound culture positive for Proteus mirabilis Poorly controlled type 2 diabetes mellitus, POA Acute renal failure, POA Acute rhabdomyolysis, POA Anemia, POA Significant leukocytosis secondary to underlying septicemia, POA Moderate hyponatremia, POA Hx of right BKA, POA PLAN: Patient presented to the emergency room August 30, 2024, with a chronic wounds involving toes to the left foot. X-ray of the left foot status post interval amputation great toe, 2nd toe, 3rd toe with soft tissue edema subcutaneous emphysema overlying the 1st metatarsal, possible osteomyelitis of the 3rd and 4th proximal phalanx. S/p transmetatarsal amputation the left foot 08/31/[address] Lim. 1st set of blood culture positive for Proteus mirabilis. Repeat blood cultures negative so far Wound culture from the left foot positive for Proteus mirabilis, urine culture positive for ESBL E coli and Proteus mirabilis. Continue IV Zosyn and Zyvox Dr. Stein for antimicrobial stewardship. NEURO: Minimize central acting medications as possible. Fall Precautions. Well lighted room through the day and minimize interruptions through the night to prevent acute delirium. PULMONARY: Supplemental 02 as needed BiPAP as necessary, for respiratory distress Titrate Fio2 to keep Spo2 > or = 90% DuoNebs and CPT as needed IS hourly while awake for pulmonary hygiene prn Out of bed to chair as tolerated Maintain aspiration precautions at all times CARDIOVASCULAR: Pending CT angio results Continue Plavix 75 mg p.o. daily Social consulted for help to obtain medications that we will need to be taking uninterrupted for at least three months before Dr. Villalpando can proceed with any invasive studies Following perinatology physician's recommendations Follow hemodynamics. Vital signs per facility protocol GI & NUTRITION: Continue nutritional support Aspirations precautions Prokinetic agents and laxatives as needed KIDNEYS & ELECTROLYTES: Strict monitoring of intake and output Daily weights Avoid nephrotoxic agents Monitor electrolytes and replace as needed Goal urine output of 30mL/hr or 0.5mL/kg/hr Medications to be dosed according to renal function. Avoid contrast if possible ENDOCRINE: Maintain blood glucose between 100-180 at all times. Insulin sliding scale for blood glucose management Hypoglycemia and hyperglycemia protocol in place INFECTIOUS DISEASE: Trend temperature, WBC and procalcitonin level Follow cultures, deescalate antibiotics as soon as possible. Panculture if new onset fever HEMATOLOGY & COAGULATION: Monitor H&H. Keep Hgb > 7 Transfuse 1 unit of PRBC for Hgb < 7 Transfuse 1 pack of platelets of platelets < 20, 000 Watch for any signs and symptoms of bleeding SKIN: Pressure ulcer prevention per facility protocol Specialty mattress as needed ORTHO/REHAB Continue PT/OT PRN: MEDICATIONS Tylenol 650 mg po every 4 hrs for fever zofran 4 mg IV every 6 hrs for n/v Hydralazine 5 mg IV every 4 hrs systolic pressure > 160 bowel regiment: lactulose 20 gm PO BID PRN constipation Supportive measures: PRN Treatment - Add when necessary meds for nausea, vomiting, pain, constipation, insomnia. DVT/GI prophylaxis- Continue SCDs Full CODE STATUS Disposition: Pending improvement in clinical condition All questions answered time spent: > 35 min This document was generated in part using voice recognition software, occasional wrong word or sound alike substitutions may have occurred due to the inherent limitations of voice recognition software. Read the chart carefully and recognize using context, where the substitutions have occurred. Although every effort was made to edit the content, supercharge repair supervisor and typing errors may occur This case was discussed with Dr. Sierra and above plan was formulated ATTESTATION BY PHYSICIAN I have seen and examined the patient. I reviewed the documentation, medical decision making, and treatment plan as noted by the mid-level provider above. I agree with the findings and plan of care. Cristela Sierra MD, MARCELO O LINUX ARCHITECT Sep 03, 2024 10:13
--- NOTE | 2024-09-03 12:44 | PN ---
PROGRESS NOTE PROBLEM LIST: Peripheral arterial disease Status post left transmetatarsal amputation on this admission Osteomyelitis left foot Normal LVEF of 50-55% and stage I diastolic dysfunction on 2D echocardiogram 09/01/2024 Malnutrition and likely volume depletion on admission Noncompliance Poorly controlled type 2 diabetes mellitus with hemoglobin A1c of 7.7 Chronic normocytic normochromic anemia Hyponatremia History of right BKA 2020 INTERIM HISTORY OF PRESENT ILLNESS: Patient did have coronary CT angiography performed and he does have evidence of what may be a significant left SFA lesion as well as an occluded left anterior tibial artery with reconstitution noted and possible sequential lesions and peroneal artery. REVIEW OF SYSTEMS: No fever, headache, chest pain, abdominal pain, nausea, vomiting, or diarrhea. VITAL SIGNS Vital Signs Date Time Temp Pulse Resp B/P (MAP) Pulse Ox O2 Delivery O2 Flow Rate FiO2 09/03/24 11:34 98.1 90 16 98/52 99 Room Air 09/02/24 20:00 0 21 Laboratory Tests 09/03/24 03:22 LABS/MEDS Laboratory Tests Test 09/02/24 15:44 09/02/24 19:40 09/03/24 03:22 09/03/24 05:28 Whole Blood Glucose 264 MG/DL (70-110) H 107 MG/DL (70-110) # 109 MG/DL (70-110) Bedside Glucose Comment Notified Nurse White Blood Count 16.5 K/uL (4.8-10.8) H Red Blood Count 2.81 MIL/uL (4.50-6.20) L Hemoglobin 8.3 g/dL (14.0-18.0) L Hematocrit 25.3 % (42-54) L Mean Corpuscular Volume 90.0 fL (79-99) Mean Corpuscular Hemoglobin 29.5 pg (27.0-33.0) Mean Corpuscular Hemoglobin Concent 32.8 g/dL (32.0-36.0) Red Cell Distribution Width 12.9 % (11.0-15.5) Platelet Count 271 K/uL (130-400) Mean Platelet Volume 10.5 fL (7.5-10.5) Nucleated Red Blood Cells 0.0 % (0.0-0.19) Sodium Level 135 mmol/L (136-145) L Potassium Level 3.8 mmol/L (3.5-5.1) Chloride Level 100 mmol/L (101-111) L Carbon Dioxide Level 26 mmol/L (21-32) Blood Urea Nitrogen 12 mg/dL (7-18) Creatinine 1.0 mg/dL (0.5-1.3) Glomerular Filtration Rate Calc 83 mL/min (>90) Random Glucose 116 mg/dL (70-105) H Total Calcium 8.0 mg/dL (8.5-10.1) L Magnesium Level 1.90 mg/dL (1.80-2.40) Total Bilirubin 0.8 mg/dL (0.2-1.0) # Aspartate Amino Transf (AST/SGOT) 14 U/L (10-37) Alanine Aminotransferase (ALT/SGPT) 7 U/L (12-78) L Alkaline Phosphatase 57 U/L (50-136) Total Protein 5.8 g/dL (6.0-8.3) L Albumin 1.9 g/dL (3.5-5.0) L Test 09/03/24 10:38 Whole Blood Glucose 139 MG/DL (70-110) H Current Medications Vancomycin HCl 1 gm ONCE ONCE IV Last administered on 08/30/24at 16:59; Start 08/30/24 at 17:00; Stop 08/30/24 at 17:01; Status DC Piperacillin Sod/ Tazobactam Sod 3.375 gm ONCE ONCE IV Last administered on 08/30/24at 16:53; Start 08/30/24 at 17:00; Stop 08/30/24 at 17:01; Status DC Sodium Chloride 1,497 ml @ 499 mls/hr ONCE ONCE IV Last administered on 08/30/24at 16:58; Start 08/30/24 at 17:00; Stop 08/30/24 at 19:59; Status DC Piperacillin Sod/ Tazobactam Sod 3.375 gm Q12H IVPB Last administered on 08/30/24at 23:06; Start 08/30/24 at 21:00; Stop 08/31/24 at 06:42; Status DC Sodium Chloride 1,000 ml @ 75 mls/hr [id number] IV Last administered on 08/31/24at 22:29; Start 08/30/24 at 20:00; Stop 09/01/24 at 12:55; Status DC Pharmacy Profile Note 1 each ONCE MISC Last administered on 08/30/24at 17:56; Start 08/30/24 at 17:30; Stop 09/01/24 at 07:16; Status DC Acetaminophen 650 mg Q6H PRN PO; Start 08/30/24 at 17:30; Stop 09/29/24 at 17:29 Ondansetron HCl 4 mg Q6H PRN IVP; Start 08/30/24 at 17:30; Stop 09/29/24 at 17:29 Hydromorphone HCl 0.2 mg Q6H PRN IVP; Start 08/30/24 at 17:30; Stop 09/04/24 at 17:29 Insulin Human Regular INSULIN SLIDING SCAL... ACHS SQ Last administered on 09/02/24at 16:30; Start 08/30/24 at 21:00; Stop 09/29/24 at 20:59 Dextrose 50 ml AD PRN IV; Start 08/30/24 at 18:00; Stop 09/29/24 at 17:59 Glucagon 1 mg AD PRN IM; Start 08/30/24 at 18:00; Stop 09/29/24 at 17:59 Linezolid 300 ml @ 150 mls/hr Q12H IV; Start 08/30/24 at 18:00; Stop 08/30/24 at 17:37; Status DC Linezolid 300 ml @ 150 mls/hr Q12H IV Last administered on 09/03/24at 08:58; Start 08/30/24 at 20:00; Stop 09/09/24 at 19:59 Thiamine HCl 100 mg Q24H IVP Last administered on 08/31/24at 18:33; Start 08/30/24 at 18:00; Stop 09/01/24 at 16:47; Status DC Lidocaine HCl 20 ml STK-MED ONCE .ROUTE; Start 08/31/24 at 06:34; Stop 08/31/24 at 06:35; Status DC Bupivacaine HCl 5 mg STK-MED ONCE .ROUTE; Start 08/31/24 at 06:35; Stop 08/31/24 at 06:35; Status DC Piperacillin Sod/ Tazobactam Sod 3.375 gm Q8H IVPB Last administered on 09/03/24at 06:27; Start 08/31/24 at 07:00; Stop 09/09/24 at 20:59 Propofol 100 ml @ As Directed STK-MED ONCE IV; Start 08/31/24 at 07:38; Stop 08/31/24 at 07:38; Status DC Ketamine HCl 50 mg STK-MED ONCE .ROUTE; Start 08/31/24 at 07:38; Stop 08/31/24 at 07:39; Status DC Midazolam HCl 2 mg STK-MED ONCE .ROUTE; Start 08/31/24 at 07:39; Stop 08/31/24 at 07:40; Status DC Phenylephrine HCl 10 mg STK-MED ONCE IV; Start 08/31/24 at 08:10; Stop 08/31/24 at 08:10; Status DC Lidocaine HCl 20 ml STK-MED ONCE INJ Last administered on 08/31/24at 08:00; Start 08/31/24 at 08:00; Stop 08/31/24 at 08:28; Status DC Bupivacaine HCl 75 mg STK-MED ONCE INJ Last administered on 08/31/24at 08:00; Start 08/31/24 at 08:00; Stop 08/31/24 at 08:28; Status DC Ephedrine Sulfate 50 mg STK-MED ONCE .ROUTE Last administered on 08/31/24at 09:56; Start 08/31/24 at 09:48; Stop 08/31/24 at 09:48; Status DC Albumin Human 250 ml @ As Directed STK-MED ONCE IV Last administered on 08/31/24at 09:56; Start 08/31/24 at 09:49; Stop 08/31/24 at 09:49; Status DC Vitamin B Complex/ Vit C/Folic Acid 1 cap DAILY PO Last administered on 09/03/24at 08:58; Start 09/01/24 at 09:00; Stop 10/01/24 at 08:59 Betamethasone Valerate 1 APPLICATION TID TP; Start 09/01/24 at 14:00; Stop 10/01/24 at 13:59; Status Cancel Diphenhydramine HCl 25 mg ONCE ONCE PO; Start 09/01/24 at 14:00; Stop 09/01/24 at 14:01; Status Cancel Thiamine HCl 100 mg Q24H IVP Last administered on 09/02/24at 20:50; Start 09/01/24 at 20:00; Stop 10/01/24 at 19:59 Clopidogrel Bisulfate 75 mg DAILY PO Last administered on 09/03/24at 09:08; Start 09/02/24 at 09:00; Stop 10/02/24 at 08:59 Iohexol 50 ml STK-MED ONCE IV; Start 09/02/24 at 12:19; Stop 09/02/24 at 12:20; Status DC Iohexol 35,000 mg STK-MED ONCE IV; Start 09/02/24 at 12:19; Stop 09/02/24 at 12:20; Status DC ASSESSMENT: Peripheral arterial disease left SFA left infrapopliteal vessels via CT angiography PLAN: At this time I would like to see how patient does regarding healing after TMA as I am hesitant to proceed with any invasive procedures in his placed in who has demonstrated significant noncompliance in the past. I would have significant reservation placing any kind of angioplasty or stent unless we can assure that we are going to have dual antiplatelet therapy uninterrupted for at least three months. At this time I would like social work to get involved in regards to obtaining medications before we proceed with any invasive studies. We will continue to follow along. CHARIS OROSCO MD Sep 03, 2024 12:44
--- NOTE | 2024-09-03 13:09 | PN ---
INFECTIOUS DISEASE PROGRESS NOTE Date of Service: Sep 03, 2024 SUBJECTIVE: This is a 64 year old male patient who was seen today at bedside in room 412. Patient is awake, alert and oriented x3. patient is status post left TMA on 08/31/2024. The left foot wound cultures is growing Proteus mirabilis and methicillin-susceptible Staphylococcus aureus, the blood cultures is positive for Proteus mirabilis and the final urine culture results is positive for ESBL, E coli and Proteus mirabilis. We will continue on Zyvox and Zosyn IV and continue to follow patient's care. PHYSICAL EXAM EYES: Anicteric. Pupils equal and reactive. HENT: No oral thrush seen, moist Oral mucosa. NECK: Supple, no JVD or thyromegaly. LUNGS: Good air entry. No rales, no rhonchi. CARDIOVASCULAR: S1, S2 regular. No murmur heard. ABDOMEN: Soft, non tender, bowel sounds present, no organomegaly. CENTRAL NERVOUS SYSTEM: Awake, alert, oriented x 3. SKIN: No rashes, no swelling. LYMPHATICS: No peripheral lymphadenopathy MUSCULOSKELETAL: No joint swelling, erythema or tenderness. EXTREMITIES: Dry dressing to left lower extremity. Left TMA. BACK: No deformity, no pressure ulcer. GENITOURINARY: No dysuria or hematuria. Vital Sign (Last 12 Hours) 09/03/24 09/03/24 09/03/24 03:43 08:17 11:34 Temp 98.1 98.2 98.1 Pulse 89 90 90 Resp 16 20 16 B/P (MAP) 108/54 102/55 98/52 Pulse Ox 96 99 99 O2 Delivery Room Air Room Air Room Air Intake & Output (last 24hrs) 09/02/24 09/02/24 09/03/24 14:59 22:59 06:59 Intake Total 240 ml 875 ml 200 ml Output Total 400 ml 500 ml Balance 240 ml 475 ml -300 ml LABS: Laboratory: Test 09/03/24 10:38 09/03/24 03:22 09/02/24 15:44 09/02/24 05:17 Range/Units Whole Blood Glucose 139 H 70-110 MG/DL White Blood Count 16.5 H 4.8-10.8 K/uL Red Blood Count 2.81 L 4.50-6.20 MIL/uL Hemoglobin 8.3 L 14.0-18.0 g/dL Hematocrit 25.3 L 42-54 % Mean Corpuscular Volume 90.0 79-99 fL Mean Corpuscular Hemoglobin 29.5 27.0-33.0 pg Mean Corpuscular Hemoglobin Concent 32.8 32.0-36.0 g/dL Red Cell Distribution Width 12.9 11.0-15.5 % Platelet Count 271 130-400 K/uL Mean Platelet Volume 10.5 7.5-10.5 fL Nucleated Red Blood Cells 0.0 0.0-0.19 % Sodium Level 135 L 136-145 mmol/L Potassium Level 3.8 3.5-5.1 mmol/L Chloride Level 100 L 101-111 mmol/L Carbon Dioxide Level 26 21-32 mmol/L Blood Urea Nitrogen 12 7-18 mg/dL Creatinine 1.0 0.5-1.3 mg/dL Glomerular Filtration Rate Calc 83 >90 mL/min Random Glucose 116 H 70-105 mg/dL Total Calcium 8.0 L 8.5-10.1 mg/dL Magnesium Level 1.90 1.80-2.40 mg/dL Total Bilirubin 0.8 # 0.2-1.0 mg/dL Aspartate Amino Transf (AST/SGOT) 14 10-37 U/L Alanine Aminotransferase (ALT/SGPT) 7 L 12-78 U/L Alkaline Phosphatase 57 50-136 U/L Total Protein 5.8 L 6.0-8.3 g/dL Albumin 1.9 L 3.5-5.0 g/dL Bedside Glucose Comment Notified Nurse Uric Acid 3.3 2.6-7.2 mg/dL Phosphorus Level 1.7 L 2.5-4.9 mg/dL Total Creatine Kinase 47 # 21-232 U/L Triglycerides Level 75 30-200 mg/dL Cholesterol Level 70 <200 mg/dL LDL Cholesterol 37 0-99 mg/dL HDL Cholesterol 21 L 29-71 mg/dL DIAGNOSTICS / RADIOLOGY: PATIENT: CHADD MAGDALENO ACCT: [id number] LOC: 2D U: [id number] AGE/SX: 64/M ROOM: [facility] RE08/30/[address]: BRAULIO BRIDGES MD : 1960 BED: 1 DIS: STATUS: ADM IN TLOC: SPEC: [id number] MILENA: 08/31/24 STATUS: COMP REQ: [id number] RECD: 09/01/[address]: IVON UNDERWOOD MD SOURCE: [facility] ENTR: 09/01/[address] [facility] [address]: SELF,REFERRAL [facility]: CLEAN CAT ORDERED: AERO ID & SENS Procedure Result Chuy Date-Time -- AEROBIC ID & SENSITIVITIES Final 09/02/24-0814 MRL EXTENDED SPECTRUM BETA-LACTAMASE ORGANISM IDENTIFIED. CRITICAL RESULT WAS CALLED BY ADRIAN STANLEY ON 09/02/24 AT 0813. CRITICAL VALUES WERE READ BACK AND ACKNOWLEDGED BY [facility] NICK ( [facility] ) COLONY DESCRIPTION: DAY 1: COLONY COUNT: >100,000 CFU/ML GRAM NEGATIVE RODS IDENTIFICATION AND SENSITIVITY TO FOLLOW COMMENTS(R): ESBL ESCHERICHIA COLI PROTEUS MIRABILIS E COLI PMIRABILIS M.I.C. RX M.I.C. RX --------- ---- --------- ---- AMPICILLIN >16 R* <=8 S AZTREONAM >16 ESBL <=4 S CEFAZOLIN >16 R* <=2 S CEFTAZIDIME 8 ESBL CEFTAZIDIME/AVIBACTAM <=8 S <=8 S CEFTRIAXONE >2 ESBL CIPROFLOXACIN 2 R GENTAMICIN <=2 S <=2 S LEVOFLOXACIN >4 R <=0.5 S NITROFURANTOIN <=32 S MEROPENEM <=1 S <=1 S PIPERACILLIN/TAZOBACTAM <=8 S <=8 S TRIMETHOPRIM/SUFLAMETHOXAZOLE <=2/38 S <=2/38 S ATIENT: CHADD MAGDALENO ACCT: [id number] LOC: [facility] U: [id number] AGE/SX: 64/M ROOM: [facility] RE08/30/[address]: BRAULIO BRIDGES MD : 1960 BED: 1 DIS: STATUS: ADM IN TLOC: SPEC: [id number] MILENA: 08/30/24 STATUS: COMP REQ: [id number] RECD: 08/30/[address]: DUY LAYNE DPM SOURCE: FOOT ENTR: 08/30/[address]: SUSANNE BETTENCOURT MD SPDESC: XIOMY SOLER MD, ASHISH MD SELF,REFERRAL ORDERED: SUNDAR CULTURE, AEROBIC CULTURE COMMENTS: Has specimen been collected/obtained? Y Specimen Comment: DEEP TISSUE WOUND CONTINUED ON NEXT PAGE RUN DATE: 09/03/24 [facility] PAGE 2 RUN TIME: [id number] [address] Department of Laboratories CLIA # [id number] Animal Science Instructor: Ruby Masetrs DO Specimen Report SPEC: [id number] PATIENT: CHADD MAGDALENO [id number] (Continued) Procedure Result Chuy Date-Time ANAEROBIC CULTURE Final 09/03/24-1003 MRL COLONY DESCRIPTION: REPORT 1: NO ANAEROBES AT 24-35 HOURS; STUDIES TO CONTINUE REPORT 2: NO ANAEROBES AT 48-59 HOURS; STUDIES TO CONTINUE REPORT 3: NO ANAEROBES AT 72-96 HOURS Test(s) performed by: [facility] [address] [place] [address] AEROBIC CULTURE Final 09/03/24-702 MRL COLONY DESCRIPTION: REPORT 1: 2+ GRAM NEGATIVE RODS IDENTIFICATION AND SENSITIVITY TO FOLLOW REPORT 2: STUDIES TO CONTINUE REPORT 3: 1+ GRAM POSITIVE COCCI IN CLUSTERS STAPHYLOCOCCUS AUREUS SENSITIVITY TO FOLLOW NO FURTHER WORK-UP DONE PROTEUS MIRABILIS STAPHYLOCOCCUS AUREUS PMIRABILIS S. AUREUS M.I.C. RX M.I.C. RX --------- ---- --------- ---- AMPICILLIN <=8 S AZTREONAM <=4 S CEFAZOLIN <=2 S CEFTAZIDIME/AVIBACTAM <=8 S ERYTHROMYCIN <=0.5 S GENTAMICIN 4 I >8 R LEVOFLOXACIN <=0.5 S <=1 S VANCOMYCIN 1 S OXACILLIN ELEAZAR 1 S RIFAMPIN <=1 S TOBRAMYCIN 4 I MEROPENEM <=1 S PENICILLIN 2 Wallace PIPERACILLIN/TAZOBACTAM <=8 S TRIMETHOPRIM/SUFLAMETHOXAZOLE <=2/38 S <=0.5/9.5 S PATIENT: CHADD MAGDALENO ACCT: [id number] LOC: [facility] U: [id number] AGE/SX: 64/M ROOM: 223 RE08/30/[address]: BRAULIO BRIDGES MD : 1960 BED: 1 DIS: STATUS: ADM IN TLOC: SPEC: [id number] MILENA: 08/30/24-916 STATUS: CHRISTIN REQ: [id number] RECD: 08/31/[address] [facility] [address]: IVON UNDERWOOD MD SOURCE: BLOOD ENTR: 08/31/[address] [facility] [address]: SELF,REFERRAL [facility]: BLOOD ORDERED: AERO ID & SENS Procedure Result Chuy Date-Time AEROBIC ID & SENSITIVITIES Final 09/01/24 [facility] COLONY DESCRIPTION: DAY 1: GRAM NEGATIVE RODS IDENTIFICATION AND SENSITIVITY TO FOLLOW ANAEROBIC BOTTLE PROTEUS MIRABILIS PMIRABILIS M.I.C. RX --------- ---- AMPICILLIN <=8 S AZTREONAM >16 R CEFAZOLIN <=2 S CEFTAZIDIME/AVIBACTAM <=8 S GENTAMICIN >8 R LEVOFLOXACIN <=0.5 S TOBRAMYCIN >8 R MEROPENEM <=1 S PIPERACILLIN/TAZOBACTAM <=8 S TRIMETHOPRIM/SUFLAMETHOXAZOLE <=2/38 S ASSESSMENT: Urinary tract infection with ESBL E coli and Proteus mirabilis. Proteus mirabilis bacteremia. Left foot diabetic ulcer with polymicrobial infection, possible osteomyelitis, status post transmetatarsal amputation on 08/31/2024.. Chronic kidney disease. Leukocytosis, improving Diabetes mellitus Peripheral Artery disease PLAN: Continue Zyvox IV. Continue Zosyn. Continue pain management. Continue diabetic medication. Continue wound care. We will monitor renal function. This case was reviewed and discussed with my supervising physician and the above assessment and plan was formulated and agreed upon. ATTESTATION BY PHYSICIAN I have seen and examined the patient. I reviewed the documentation, medical decision making, and treatment plan as noted by the mid-level provider above. I agree with the findings and plan of care. SUSANNE BETTENCOURT MD, [facility] Sep 03, 2024 13:09
--- NOTE | 2024-09-03 13:17 | PN ---
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 He presented to emergency room for evaluation of left foot wounds. S/p left TMA by Dr. Lim He continues to be followed by Cardiology, pending recommendations He was noted to have worsening elevated BUN/creatinine We have been consulted for renal failure. Renal function and electrolytes are stable Hemoglobin has remained stable Renal ultrasound showed normal kidneys with no hydronephrosis. He continues on antibiotics as per ID Blood cultures are positive for Proteus mirabilis He was seen in the medical floor, in no acute distress Prognosis remains guarded REVIEW OF SYSTEMS: GENERAL: Positive for left foot wound. NEUROLOGIC: Negative for any blurry vision, blind spots, double vision, facial asymmetry, dysphagia, dysarthria, hemiparesis, hemisensory deficits, vertigo, ataxia. HEENT: Negative for any head trauma, neck trauma, neck stiffness, photophobia, phonophobia, sinusitis, rhinitis. CARDIAC: Negative for any chest pain, dyspnea on exertion, paroxysmal nocturnal dyspnea, peripheral edema. PULMONARY: Negative for any shortness of breath, wheezing, COPD, or TB exposure. GASTROINTESTINAL: Negative for any abdominal pain, nausea, vomiting, bright red blood per rectum, melena. GENITOURINARY: Negative for any dysuria, hematuria, incontinence. INTEGUMENTARY: Negative for any rashes, cuts, insect bites. RHEUMATOLOGIC: Negative for any joint pains, photosensitive rashes, history of vasculitis or kidney problems. HEMATOLOGIC: Negative for any abnormal bruising, frequent infections or bleeding. Vital Signs (last 8hr) Date Time Temp Pulse Resp B/P (MAP) Pulse Ox O2 Delivery O2 Flow Rate FiO2 09/03/24 11:34 98.1 90 16 98/52 99 Room Air 09/03/24 08:17 98.2 90 20 102/55 99 Room Air PHYSICAL EXAM: GENERAL: Alert and oriented x 3. No acute distress. Well-nourished. EYES: EOMI. Anicteric. HENT: Moist mucous membranes. No scleral icterus. No cervical lymphadenopathy. LUNGS: Clear to auscultation bilaterally. No accessory muscle use. CARDIOVASCULAR: Regular rate and rhythm. No murmur. No JVD. ABDOMEN: Soft, non-tender and non-distended. No palpable masses. EXTREMITIES: No edema. Non-tender. Right BKA, left TMA SKIN: No rashes or lesions. Warm. NEUROLOGIC: No focal neurological deficits. CN II-XII grossly intact, but not individually tested. PSYCHIATRIC: Cooperative. Appropriate mood and affect. Current Medications Medications (Trade) Dose Ordered Sig/Nathaly Route Start Time Stop Time Status Last Admin Dose Admin Betamethasone Valerate (Betamethasone Valerate) 1 APPLICATION TID TP 09/01/24 14:00 10/01/24 13:59 Cancel Clopidogrel Bisulfate (plaVIX 75MG) 75 mg DAILY PO 09/02/24 09:00 10/02/24 08:59 Insulin Human Regular (humuLIN R 100 UNIT/ML 3ML) INSULIN SLIDING SCAL... ACHS SQ 08/30/24 21:00 09/29/24 20:59 09/01/24 16:50 3 UNIT Linezolid 300 ml @ 150 mls/hr Q12H IV 08/30/24 18:00 08/30/24 17:37 DC Linezolid 300 ml @ 150 mls/hr Q12H IV 08/30/24 20:00 09/09/24 19:59 09/02/24 09:34 150 MLS/HR Pharmacy Profile Note (Pharmacy Communication) 1 each ONCE MISC 08/30/24 17:30 09/01/24 07:16 DC 08/30/24 17:56 1 EACH Piperacillin Sod/ Tazobactam Sod (Zosyn 3.375gm+NS 50ml) 3.375 gm Q12H IVPB 08/30/24 21:00 08/31/24 06:42 DC 08/30/24 23:06 3.375 GM Piperacillin Sod/ Tazobactam Sod (Zosyn 3.375gm+NS 50ml) 3.375 gm Q8H IVPB 08/31/24 07:00 09/09/24 20:59 09/02/24 05:21 3.375 GM Sodium Chloride 1,000 ml @ 75 mls/hr [id number] IV 08/30/24 20:00 09/01/24 12:55 DC 08/31/24 22:29 75 MLS/HR Thiamine HCl (Vitamin B-1) 100 mg Q24H IVP 08/30/24 18:00 09/01/24 16:47 DC 08/31/24 18:33 100 MG Thiamine HCl (Vitamin B-1) 100 mg Q24H IVP 09/01/24 20:00 10/01/24 19:59 09/01/24 19:55 100 MG Vitamin B Complex/ Vit C/Folic Acid (Nephrovite Tablet) 1 cap DAILY PO 09/01/24 09:00 10/01/24 08:59 09/02/24 09:34 1 CAP LABORATORY: [ ] Hematology Labs: Test 09/03/24 03:22 Range/Units White Blood Count 16.5 H 4.8-10.8 K/uL Red Blood Count 2.81 L 4.50-6.20 MIL/uL Hemoglobin 8.3 L 14.0-18.0 g/dL Hematocrit 25.3 L 42-54 % Mean Corpuscular Volume 90.0 79-99 fL Mean Corpuscular Hemoglobin 29.5 27.0-33.0 pg Mean Corpuscular Hemoglobin Concent 32.8 32.0-36.0 g/dL Red Cell Distribution Width 12.9 11.0-15.5 % Platelet Count 271 130-400 K/uL Mean Platelet Volume 10.5 7.5-10.5 fL Nucleated Red Blood Cells 0.0 0.0-0.19 % Chemistry Labs: Test 09/03/24 10:38 09/03/24 03:22 09/02/24 15:44 09/02/24 05:17 Range/Units Whole Blood Glucose 139 H 70-110 MG/DL Sodium Level 135 L 136-145 mmol/L Potassium Level 3.8 3.5-5.1 mmol/L Chloride Level 100 L 101-111 mmol/L Carbon Dioxide Level 26 21-32 mmol/L Blood Urea Nitrogen 12 7-18 mg/dL Creatinine 1.0 0.5-1.3 mg/dL Glomerular Filtration Rate Calc 83 >90 mL/min Random Glucose 116 H 70-105 mg/dL Total Calcium 8.0 L 8.5-10.1 mg/dL Magnesium Level 1.90 1.80-2.40 mg/dL Total Bilirubin 0.8 # 0.2-1.0 mg/dL Aspartate Amino Transf (AST/SGOT) 14 10-37 U/L Alanine Aminotransferase (ALT/SGPT) 7 L 12-78 U/L Alkaline Phosphatase 57 50-136 U/L Total Protein 5.8 L 6.0-8.3 g/dL Albumin 1.9 L 3.5-5.0 g/dL Bedside Glucose Comment Notified Nurse Uric Acid 3.3 2.6-7.2 mg/dL Phosphorus Level 1.7 L 2.5-4.9 mg/dL Total Creatine Kinase 47 # 21-232 U/L Triglycerides Level 75 30-200 mg/dL Cholesterol Level 70 <200 mg/dL LDL Cholesterol 37 0-99 mg/dL HDL Cholesterol 21 L 29-71 mg/dL DIAGNOSTICS / RADIOLOGY: PATIENT: CHADD MAGDALENO MR#: [id number] : 1960 SEX: M AGE: 64 LOCATION: [facility] ORDER 1245 STATUS: ADM IN REPORT#: [id number] SERVICE 1227 REASON: cad,chf ORDERING PHYSICIAN: CHARIS OROSCO MD PROCEDURE: ECHO [facility] - ECHO 2-D COMPLETE APPROVED REPORT EXAM: Two-dimensional and M-mode echocardiogram with Doppler and color Doppler. Study Details: Diabts M , PVD INDICATION ICD: CAD , chf 2D Dimensions RVDd 3.4 cm LVEF(%) 70.2 (>50%) LVED Vol(simp.) 86.7 mL IVSd 0.9 (0.7-1.1cm) FS(%) 40 % LVES Vol(simp.) 38.5 mL LVDd 4.6 (3.8-5.6cm) LA (2D) 2.8 (1.6-4.0cm) LVEF(%, simp.) 56 % PWd 0.8 (0.7-1.1cm) Ao Root(2D) 3.3 (2.0-3.7cm) LA ESV INDEX (4CH) 21.00 mL/m2 IVSs 1.1 cm LVOT diam 2.0 (1.8-2.4cm) LA ESV INDEX (2CH) 15.31 mL/m2 LVDs 2.8 (2.5-4.0cm) LA ESV INDEX (BP) 15.38 mL/m2 PWs 1.2 cm Deformation Strain Apical 4 16.8 % Apical 2 13.2 % Apical 3 15.0 % Global Strain 15.0 % M-Mode Dimensions EPSS 1.8 cm LA (MM) 3.4 (1.6-4.0cm) Ao Root(MM) 3.4 (2.0-3.7cm) Aortic Valve AoV Vmax 0.9 m/s Ao Peak GR 3.2 mmHg LVOT Vmax 0.8 m/s AoV VTI 0.2 m Ao Mean GR 1.7 mmHg LVOT VTI 0.15 m CAITLIN (VMAX) 3.04 cm2 CAITLIN (VTI) 3.1 cm2 Mitral Valve MV E Vmax 61.6 cm/s DECEL Time 244 ms MV A Vmax 95.3 cm/s E/A ratio 0.6 TDI E/E' Medial 10.5 E/E' Lateral 6.4 Medial E' Peak V 5.86 cm/s Lateral E' Peak V 9.56 cm/s Pulmonary Valve PV Vmax 0.9 m/s PV VTI 0.18 m PV Mean GR 2.0 mmHg PV Peak GR 3.5 mmHg Left Ventricle The left ventricle is normal size. There is normal LV segmental wall motion. There is normal left ventricular wall thickness. LVEF is 50-55%. Stage I diastolic dysfunction. Right Ventricle The right ventricle is normal size. The right ventricular systolic function is normal. Atria The left atrium size is normal. The interatrial septum is intact with no evidence for an atrial septal defect. The right atrium size is normal. Aortic Valve Aortic valve NCC leaflets mild calcified. Trace aortic regurgitation. There is no aortic valvular stenosis. Mitral Valve The mitral valve is mildly thickened. Mild posterior mitral annular calcification present. There is no evidence of significant mitral regurgitation. There is no mitral valve stenosis. Tricuspid Valve The tricuspid valve is normal in structure. There is no tricuspid valve regurgitation noted. Pulmonic Valve Pulmonic valve is not well visualized. There is trace pulmonic valvular r egurgitation. Great Vessels The aortic root is normal in size. The ascending aorta is normal in size. IVC is not well visualized. Pericardium not visualized Conclusion LVEF is 50-55%. Stage I diastolic dysfunction. There is normal LV segmental wall motion. Aortic valve NCC leaflets mild calcified. Trace aortic regurgitation. The mitral valve is mildly thickened. Mild posterior mitral annular calcification present. DICTATED BY: CHARIS OROSCO MD DATE: 09/01/24 1114 ELECTRONICALLY SIGNED BY: CHARIS OROSCO MD DATE: 09/01/24 1417 PATIENT: CHADD MAGDALENO MR#: [id number] : 1960 SEX: M AGE: 63 [facility] STATUS: ADM IN REPORT#: [id number] SERVICE 34 REASON: rule out any significant lung infiltrates, sepsis, foot infection ORDERING PHYSICIAN: BRAULIO BRIDGES MD PROCEDURE: CXR1VW - CHEST 1VW EXAM: CR Chest, 1 View. CLINICAL HISTORY: rule out any significant lung infiltrates, sepsis, foot infection COMPARISON: 05/02/2017 FINDINGS: LUNGS: There is no mass, infiltrate, or acute pulmonary abnormality. PLEURAL SPACES: No pleural effusion or pneumothorax. MEDIASTINUM: Cardiac size and mediastinal contours within normal limits. BONES: No aggressive appearing osseous lesion seen. IMPRESSION: No acute cardiopulmonary pathology is evident. /[place] DICTATED BY: PATRICIA LAWSON MD DATE: 08/30/242003 REASON: acute renal failure, uncontrolled DM II ORDERING PHYSICIAN: BRAULIO BRIDGES MD PROCEDURE: RENAL - US RENAL SONOGRAM EXAMINATION: Renal ultrasound. COMPARISON: None provided. HISTORY: acute renal failure, uncontrolled DM II FINDINGS: The right kidney measures 9.9 cm and is normal in echotexture. The left kidney measures 9.2 cm and is normal in echotexture. There are no focal renal lesions. There are no renal stones. There is no hydronephrosis. There is mild debris noted in the urinary bladder. Cystitis should be excluded. IMPRESSION: Normal kidneys. No hydronephrosis Mild debris noted in the urinary bladder. Cystitis should be excluded. /[place] DICTATED BY: PATRICIA LAWSON MD DATE: 08/30/242022 PATIENT: CHADD MAGDALENO MR#: [id number] : 1960 SEX: M AGE: 63 LOCATION: [facility] ORDER 1724 STATUS: ADM IN REPORT#: [id number] SERVICE 1717 REASON: non healing left foot wound with necrotic toes, assess for severe PAD ORDERING PHYSICIAN: BRAULIO BRIDGES MD PROCEDURE: ART B LE - US ARTERIAL BILAT LOW EXT DUPL EXAMINATION: DUPLEX ULTRASOUND EXAMINATION OF THE BILATERAL LOWER EXTREMITY ARTERIES. CLINICAL HISTORY: Non-healing wound in the left, to assess for peripheral arterial disease. COMPARISON: Lower extremity arterial doppler dated 12/29/2020. FINDINGS: Peak systolic velocities within the right lower arteries are as follows: Common femoral artery: 56 cm/s. Superficial femoral artery: 55 cm/s at proximal, 71 cm/s at mid, and 50 cm/s at distal segments. Popliteal artery: 28 cm/s at proximal and 37 cm/s at distal segments. The right lower limb arteries demonstrate biphasic waveforms in all arteries. The below knee arteries are not assessed, post amputation status. Peak systolic velocities within the left lower arteries are as follows: Common femoral artery: 66 cm/s. Superficial femoral artery: 71 cm/s at proximal, 72 cm/s at mid, and 72 cm/s at distal segments. Popliteal artery: 56 cm/s at proximal and 55 cm/s at distal segments. Posterior tibial artery: 30 cm/s. Anterior tibial artery: 47 cm/s. Dorsalis pedis artery: 67 cm/s. The left lower limb arteries demonstrate biphasic waveforms in all arteries other than posterior tibial, anterior tibial, and dorsalis pedis arteries which demonstrate monophasic waveforms. There is intimal wall thickening in both lower limb arteries. IMPRESSION: Mild intimal wall thickening in both the lower limb arteries. Both lower limb arteries demonstrate biphasic waveforms in all arteries other than left posterior tibial, anterior tibial, and dorsalis pedis arteries which demonstrate monophasic waveforms. No flow limiting lesions. /[place] DICTATED BY: PATRICIA LAWSON MD DATE: 08/30/242034 PATIENT: CHADD MAGDALENO MR#: [id number] : 1960 SEX: M AGE: 63 LOCATION: [facility] ORDER 1501 STATUS: ADM IN REPORT#: [id number] SERVICE 1500 REASON: SEPSIS ORDERING PHYSICIAN: IVON UNDERWOOD MD PROCEDURE: FT 3VW LT - FOOT COMP 3+VWS LT EXAM: CR Left foot, 3 View. CLINICAL HISTORY: SEPSIS COMPARISON: Comparison: Radiograph dated September 21, 2016 Findings: AP, oblique, lateral views of the left foot are submitted. Interval amputation of the great toe from the distal metatarsal. There is edema and subcutaneous emphysema within the soft tissues overlying the first metatarsal. Presumed interval amputation of the second toe from the mid to distal second proximal phalanx and of the third toe from the distal interphalangeal joint. Clinical correlation is advised. There is suggestion of bone loss and cortical irregularities seen within the mid diaphyses of the 3rd and 4th proximal phalanxes. Findings may reflect osteomyelitis. Recommend contrast-enhanced MRI of the midfoot/forefoot for further evaluation. IMPRESSION: 1. Status post interval amputation of great toe, second toe, and third toe with soft tissue edema and subcutaneous emphysema overlying the first metatarsal. 2. Possible osteomyelitis of 3rd and 4th proximal phalanxes. Recommend MRI of the midfoot/forefoot for further evaluation. /[place] DICTATED BY: GISEL CHACON Jr., MD DATE: 08/30/241855 ASSESSMENT: Acute renal failure Acute rhabdomyolysis Anemia Hyponatremia Sepsis Blood culture positive for Gram-negative rods Gas/wet gangrene of the left foot with extensively necrotic toes and underlying acute osteo-myelitis of multiple toe Poorly controlled type 2 diabetes mellitus Significant leukocytosis secondary to underlying septicemia PLAN: Labs, diagnostic, radiologic exams reviewed and interpreted by myself and supervising physician. We have reviewed external records in detail Fluid restriction is advised Require close monitoring of renal function and electrolytes Order CBC, CMP, uric acid and electrolytes in am Continue with antibiotics as per ID BiPAP as necessary, for respiratory distress Monitor blood pressure adjust medication doses as needed Avoid hypotensive episodes May use Dilaudid 0.5 mg IV every 6 hours as needed for severe pain Monitor blood sugars Strict intake, output, and daily weight should be monitored Please renally adjust medications Avoid nephrotoxic and nonsteroidal drugs Avoid contrast if possible Will continue to monitor renal function, anemia, electrolytes Treatment plan discussed with patient Questions were answered We have discussed with the other team physicians in detail about the care plan We will continue to monitor the patient closely ATTESTATION BY PHYSICIAN I have seen and examined the patient. I reviewed the documentation, medical decision making, and treatment plan as noted by the mid-level provider above. I agree with the findings and plan of care. EMMIE KRAMER MD, [facility] Sep 03, 2024 13:17
[2024-09-04] VITALS (8 sets, daily range): BP systolic 95–103; BP diastolic 51–59; PULSE 74–81; RESP 16–18; TEMP 97.6–98.1; O2SAT 97–99
[2024-09-04 05:28] LABS: NUCLEATED RED BLOOD CELLS 0.0 % (0.0-0.19); PLATELET COUNT (AUTO) 261 K/uL (130-400); RED BLOOD CELL COUNT(AUTO) 2.63 MIL/uL (4.50-6.20); RED CELL DISTRIBUTION WIDTH 13.2 % (11.0-15.5); WHITE BLOOD COUNT (AUTO) 16.9 K/uL (4.8-10.8)
--- NOTE | 2024-09-04 05:49 | HMCIMG ---
EXAM: CTA bilateral Lower Extremities with Intravenous Contrast. CLINICAL HISTORY: Amputation of the right lower limb. TECHNIQUE: Axial CTA images of the bilateral Lower Extremities performed with intravenous contrast in the arterial phase with coronal and sagittal reformatted images generated and reviewed. 3-D reformatted images generated on an independent workstation and also reviewed. CONTRAST: Yes. COMPARISON: None provided. FINDINGS: Aorta: Atherosclerosis in the aorta with multiple calcified and non-calcified plaques at the origin of coeiliac axis, superior mesenteric artery and in the aortic neves without any flow limiting stenosis. VASCULATURE: Common Femoral Artery: Mild circumferential wall thickening with small calcified and non-calcified plaques on both sides without any flow limiting stenosis. Superficial Femoral Artery: Circumferential wall thickening with calcified plaques causing focal areas of luminal narrowing by approximately 20-30% on both sides. There is a focal area of luminal narrowing by approximately 60-70% in the lower one-thirds of the right superficial femoral artery. Deep Femoral Artery: No acute finding. No occlusion, rupture, aneurysm or dissection. Popliteal and Calf Arteries: There is circumferential calcifications in the bilateral popliteal and anterior and posterior tibial arteries with complete occlusion of the right popliteal artery and the right anterior and posterior tibial arteries. The left popliteal artery shows no significant luminal compromise. There is attenuated contrast opacification in the upper and mid segments of left anterior tibial artery with occlusion distally. Soft tissues: Unremarkable. Bones: Status post right below the knee amputation. No acute osseous abnormality. IMPRESSION: 1. Atherosclerosis in the aorta and in arteries of bilateral lower limb with complete occlusion of the right popliteal and proximal right anterior and posterior tibial arteries. Status post right below the knee amputation. 2. High-grade stenosis in the proximal and mid left anterior tibial artery with occlusion distally. 3. No abdominal aortic aneurysm or dissection. /[place]
[2024-09-04 05:52] LABS: ASPARTATE AMINOTRANSFERASE 13.0 U/L (10-37); CREATININE 1.4 mg/dL (0.5-1.3); GLOMERULAR FILTR. RATE CALC 55.0 mL/min (>90); GLUCOSE,RANDOM 141.0 mg/dL (70-105); PHOSPHORUS 2.3 mg/dL (2.5-4.9); SODIUM SERUM 133.0 mmol/L (136-145); TOTAL PROTEIN, SERUM 5.4 g/dL (6.0-8.3); UREA NITROGEN, BLOOD 16.0 mg/dL (7-18)
[2024-09-04 05:55] LABS: EOSINOPHILS % (MANUAL) 1 % (1-6); LYMPHOCYTES % (MANUAL) 10 % (22-44); MAN.DIFF COMMENT-IMPRESSION MANUAL DIFFERENTIAL; MONOCYTES % (MANUAL) 3 % (2-9); SEGMENTED NEUTROPHILS % 86 % (40-70); WBC MORPHOLOGY SMUDGE CELLS 1+
[2024-09-04 05:56] LABS: PLATELET MORPHOLOGY COMMENT ADEQUATE
--- NOTE | 2024-09-04 08:56 | PN ---
SUBJECTIVE: The patient is a very pleasant 64-year-old diabetic male seen on date of service 09/04/2024. He is remaining afebrile, 98.1. He has a pulse of 78, respirations of 18 and blood pressure 95/52. He has a white count of 16.9, H and H 7.9 and 24.2. His platelets are 261. He has a BUN and a creatinine level of 16 and 1.4, glucose 129, albumin 1.7, potassium 3.3, magnesium 2.3. The patient's cultures have shown Proteus mirabilis and Staph aureus from his foot wound, Escherichia coli, and Proteus mirabilis from his urine culture. The patient is currently receiving Zyvox and Zosyn. His blood cultures are showing no growth x 3 days. The patient is being evaluated by the Cardiology service. He had a CTA of his abdominal aorta with runoff with a report showing high-grade stenosis of the proximal and mid left anterior tibial artery with occlusion distally. There was circumferential wall thickening with calcified plaques causing focal areas of luminal narrowing by approximately 20-30% on both sides. REVIEW OF SYSTEMS: CONSTITUTIONAL: Having no chills. No fevers. No night sweats. No nausea, vomiting, no diarrhea. HEENT: No problems with his eyes, ears, nose, or throat. CARDIOVASCULAR: He has peripheral vascular disease affecting the anterior tibial artery on the left per CT angiography examination. GENITOURINARY: Has been followed for polymicrobial urinary tract infection. GASTROINTESTINAL: No dysphagia. ENDOCRINE: Diabetes. PSYCHIATRIC: Denied any depression. MUSCULOSKELETAL: [id number] amputation on the right, transmetatarsal amputation on the left. OBJECTIVE: His examination today shows the incision sites are well coapted and the drains are in place. The flap is warm with cap refill intact. No necrosis nor dehiscence. ASSESSMENT: Status post transmetatarsal amputation on the left, peripheral vascular disease, hypokalemia, hypomagnesemia, low albumin, polymicrobial wound infection, polymicrobial urinary tract infection, receiving Zyvox and Zosyn, peripheral vascular disease involving the anterior tibial artery on the left. PLAN: Betadine dressings to the surgical site, offloading measures, IV antibiotics, Zyvox, and Zosyn. The patient is being followed by the Cardiology Service. Possible intervention in the future. Plan antibiotic therapy. Local wound care. Offloading measures. Physical therapy support. Continue to follow the patient closely while in-house and awaiting final disposition per Cardiology Service regarding his circulation status. TID: [id number] RECEIPT: [id number]
--- NOTE | 2024-09-04 10:09 | PN ---
[facility] PROGRESS NOTE Date of Service: Sep 04, 2024 Time of Service: 10:04 SUBJECTIVE: PATIENT SUMMARY: The patient is a 64-year-old male who presented with chronic necrotic wounds on the toes of the left foot and was diagnosed with gas gangrene, acute osteomyel itis, and sepsis. SUBJECTIVE: The patient was seen and examined in the room this morning. He is alert oriented x3. denies pain at this time. Patient is postop day 4. Status post transmetatarsal amputation of the left foot with partial medial cuneiform anti and tendon transfer performed by Dr. Lim. He continues with IV antibiotics. Wound care being managed by Dr. iLm. REVIEW OF SYSTEMS CONSTITUTIONAL: fevers, chills, malaise, poor oral intake NEUROLOGICAL: Denies headache, amaurosis fugax, motor weakness, sensory deficit, vertigo/spinning sensation, gait abnormalities, or tremors. ENT: No hearing loss, otalgia, otorrhea, rhinitis, rhinorrhea, hoarseness, or sore throat. CARDIOVASCULAR: Denies any exertional angina, dyspnea on exertion, orthopnea, paroxysmal nocturnal dyspnea, palpitations, life-threatening arrhythmias, claudication. PULMONARY: Denies any shortness of breath, cough, phlegm/sputum, hemoptysis, pleuritic chest pain. SLEEP: Denies morning headaches, daytime somnolence or napping. Denies difficulty falling asleep, staying asleep, waking from sleep. Denies knowledge of snoring. GASTROINTESTINAL: Denies any type of dysphagia to either liquids or solids. Denies nausea, vomiting, pyrosis, early satiety, abdominal pain, diarrhea, constipation, or changes in stool consistency or caliber. Denies coffee-ground emesis, hematemesis, hematochezia, or melanotic stools. GENITOURINARY: Denies frequency, urgency, nocturia, hematuria or incontinence (Storage/Irritative symptoms.) Low urinary stream, straining to void, urinary intermittency or hesitancy, splitting of the voiding stream, terminal dribbling. ENDOCRINOLOGIC: Hx of type 2 Diabetes mellitus HEMATOLOGIC: Denies thrombophilia/previous clots, or coagulopathy/bleeding disorders. ONCOLOGIC: Denies personal history of malignancy. DERMATOLOGIC: foul smelling necrotic toes of the left foot with non healing wounds PSYCHIATRIC: Denies any suicidal or homicidal ideation. Denies hallucinations. PHYSICAL EXAM GENERAL APPEARANCE: The patient is awake, alert, and oriented, in no acute cardiopulmonary distress. NEUROLOGICAL: Cranial nerves II-XII grossly intact. Motor is 5/5 in bilateral upper and lower extremities proximal to distal. No sensory deficits. HEENT: Face is symmetric. Pupils are equal and reactive. Extraocular movements are intact. NECK: Supple. No JVD. No thyromegaly. No submental, submandibular, pre- /postauricular, occipital or supraclavicular lymphadenopathy. CHEST: Normal chest expansion. No Telemetry. LUNGS: Absence of any rales, rhonchi or any wheezing. CARDIOVASCULAR: Regular. S1 and S2 normal. No appreciable rubs, murmurs or gallops. ABDOMEN: Soft, nontender, and nondistended. There is no rebound, voluntary guarding, or rigidity. : Deferred. No Sandhu. EXTREMITIES: Left foot noted to have extremely foul-smelling wound with necrotic toes noted from 2nd two fifth digit, area of erythema and surrounding c ellulitic changes noted Vital Signs (last 8hr) Date Time Temp Pulse Resp B/P (MAP) Pulse Ox O2 Delivery O2 Flow Rate FiO2 09/04/24 07:41 97.9 75 16 103/57 99 Room Air 09/04/24 04:00 98.1 78 18 95/52 99 Room Air LABS: Laboratory: Test 09/04/24 05:42 09/04/24 04:47 09/03/24 03:22 09/02/24 15:44 Range/Units Whole Blood Glucose 129 H 70-110 MG/DL White Blood Count 16.9 H 4.8-10.8 K/uL Red Blood Count 2.63 L 4.50-6.20 MIL/uL Hemoglobin 7.9 L 14.0-18.0 g/dL Hematocrit 24.2 L 42-54 % Mean Corpuscular Volume 92.0 79-99 fL Mean Corpuscular Hemoglobin 30.0 27.0-33.0 pg Mean Corpuscular Hemoglobin Concent 32.6 32.0-36.0 g/dL Red Cell Distribution Width 13.2 11.0-15.5 % Platelet Count 261 130-400 K/uL Mean Platelet Volume 10.0 7.5-10.5 fL Segmented Neutrophils % 86 H 40-70 % Lymphocytes % (Manual) 10 L 22-44 % Monocytes % (Manual) 3 2-9 % Eosinophils % (Manual) 1 1-6 % Nucleated Red Blood Cells 0.0 0.0-0.19 % Differential Comment MANUAL DIFFERENTIAL White Cell Morphology Comment SMUDGE CELLS 1+ Platelet Morphology Comment ADEQUATE Red Blood Cell Morphology HYPOCHROM CELLS 1+ Sodium Level 133 L 136-145 mmol/L Potassium Level 3.3 L 3.5-5.1 mmol/L Chloride Level 98 L 101-111 mmol/L Carbon Dioxide Level 27 21-32 mmol/L Blood Urea Nitrogen 16 7-18 mg/dL Creatinine 1.4 H 0.5-1.3 mg/dL Glomerular Filtration Rate Calc 55 >90 mL/min Random Glucose 141 H 70-105 mg/dL Total Calcium 7.7 L 8.5-10.1 mg/dL Phosphorus Level 2.3 L 2.5-4.9 mg/dL Total Bilirubin 0.6 0.2-1.0 mg/dL Aspartate Amino Transf (AST/SGOT) 13 10-37 U/L Alanine Aminotransferase (ALT/SGPT) 9 L 12-78 U/L Alkaline Phosphatase 54 50-136 U/L Total Protein 5.4 L 6.0-8.3 g/dL Albumin 1.7 L 3.5-5.0 g/dL Magnesium Level 1.90 1.80-2.40 mg/dL Bedside Glucose Comment Notified Nurse Current Medications Medications (Trade) Dose Ordered Sig/Nathaly Route PRN Reason Start Time Stop Time Status Last Admin Dose Admin Acetaminophen (TYLenol 325MG TAB) 650 mg Q6H PRN PO MILD PAIN (1-3) 08/30/24 17:30 09/29/24 17:29 Betamethasone Valerate (Betamethasone Valerate) 1 APPLICATION TID TP 09/01/24 14:00 10/01/24 13:59 Cancel Clopidogrel Bisulfate (plaVIX 75MG) 75 mg DAILY PO 09/02/24 09:00 10/02/24 08:59 09/04/24 08:49 75 MG Dextrose (D50w) 50 ml AD PRN IV HYPOGLYCEMIA PROTOCOL 08/30/24 18:00 09/29/24 17:59 Glucagon (Glucagon 1mg Kit) 1 mg AD PRN IM HYPOGLYCEMIA PROTOCOL 08/30/24 18:00 09/29/24 17:59 Hydromorphone HCl (DiLAUDid 0.5MG INJ) 0.2 mg Q6H PRN IVP SEVERE PAIN (7-10) 08/30/24 17:30 09/04/24 17:29 Insulin Human Regular (humuLIN R 100 UNIT/ML 3ML) INSULIN SLIDING SCAL... ACHS SQ 08/30/24 21:00 09/29/24 20:59 09/03/24 16:52 4 UNIT Linezolid 300 ml @ 150 mls/hr Q12H IV 08/30/24 18:00 08/30/24 17:37 DC Linezolid 300 ml @ 150 mls/hr Q12H IV 08/30/24 20:00 09/09/24 19:59 09/04/24 08:49 150 MLS/HR Ondansetron HCl (zoFRAN 4MG INJ) 4 mg Q6H PRN IVP NAUSEA/VOMITING 08/30/24 17:30 09/29/24 17:29 Pharmacy Profile Note (Pharmacy Communication) 1 each ONCE MISC 08/30/24 17:30 09/01/24 07:16 DC 08/30/24 17:56 1 EACH Piperacillin Sod/ Tazobactam Sod (Zosyn 3.375gm+NS 50ml) 3.375 gm Q12H IVPB 08/30/24 21:00 08/31/24 06:42 DC 08/30/24 23:06 3.375 GM Piperacillin Sod/ Tazobactam Sod (Zosyn 3.375gm+NS 50ml) 3.375 gm Q8H IVPB 08/31/24 07:00 09/09/24 20:59 09/04/24 06:39 3.375 GM Sodium Chloride 1,000 ml @ 75 mls/hr [id number] IV 08/30/24 20:00 09/01/24 12:55 DC 08/31/24 22:29 75 MLS/HR Thiamine HCl (Vitamin B-1) 100 mg Q24H IVP 08/30/24 18:00 09/01/24 16:47 DC 08/31/24 18:33 100 MG Thiamine HCl (Vitamin B-1) 100 mg Q24H IVP 09/01/24 20:00 10/01/24 19:59 09/03/24 22:09 100 MG Vitamin B Complex/ Vit C/Folic Acid (Nephrovite Tablet) 1 cap DAILY PO 09/01/24 09:00 10/01/24 08:59 09/04/24 08:48 1 CAP DIAGNOSTICS / RADIOLOGY: [ ] ASSESSMENT: Gas/wet gangrene of the left foot with extensively necrotic toes and underlying acute osteo-myelitis of multiple toes, POA Sepsis, POA, (complicated soft tissue infection of the left foot with underlying osteomyelitis) POA Status post transmetatarsal amputation left foot 08/31/2024 Gram-negative bacteremia secondary secondary to Proteus mirabilis POA Urinary tract infection, secondary to E coli and Proteus mirabilis, POA Left foot wound culture positive for Proteus mirabilis Poorly controlled type 2 diabetes mellitus, POA Acute renal failure, POA Acute rhabdomyolysis, POA Anemia, POA Significant leukocytosis secondary to underlying septicemia, POA Moderate hyponatremia, POA Hx of right BKA, POA PLAN: Treatment: - Surgical: Transmetatarsal amputation of the left foot with partial medial cuneiformectomy and tendon transfer was performed. Postop day 4. - Medications: Continued IV antibiotics with Zosyn and Ceftriaxone. - Wound Care: Wound packing with betadine sulcos and complex layered primary wound closure. Tests: - Pending final wound culture results. - Blood cultures showed Proteus mirabilis; intraoperative cultures showed Proteus mirabilis and Staphylococcus aureus. - CT angiogram of bilateral lower extremities showed atherosclerosis and occlusions. Patient Education: - Discussed post-operative care and the importance of completing the antibiotic course. Follow-Up: - The patient is being followed by infectious disease for ongoing antibiotic management. - Wharf Tally Clerk follow-up for management of peripheral arterial disease. - Nephrology follow-up for renal function monitoring. Disposition: - Continue monitoring in the hospital setting due to the complexity of the condition and post-operative status. NEURO: Minimize central acting medications as possible. Fall Precautions. Well lighted room through the day and minimize interruptions through the night to prevent acute delirium. PULMONARY: Supplemental 02 as needed BiPAP as necessary, for respiratory distress Titrate Fio2 to keep Spo2 > or = 90% DuoNebs and CPT as needed IS hourly while awake for pulmonary hygiene prn Out of bed to chair as tolerated Maintain aspiration precautions at all times CARDIOVASCULAR: Pending CT angio results Continue Plavix 75 mg p.o. daily Social consulted for help to obtain medications that we will need to be taking uninterrupted for at least three months before Dr. Villalpando can proceed with any invasive studies Following ruling machine feeder's recommendations Follow hemodynamics. Vital signs per facility protocol GI & NUTRITION: Continue nutritional support Aspirations precautions Prokinetic agents and laxatives as needed KIDNEYS & ELECTROLYTES: Strict monitoring of intake and output Daily weights Avoid nephrotoxic agents Monitor electrolytes and replace as needed Goal urine output of 30mL/hr or 0.5mL/kg/hr Medications to be dosed according to renal function. Avoid contrast if possible ENDOCRINE: Maintain blood glucose between 100-180 at all times. Insulin sliding scale for blood glucose management Hypoglycemia and hyperglycemia protocol in place INFECTIOUS DISEASE: Trend temperature, WBC and procalcitonin level Follow cultures, deescalate antibiotics as soon as possible. Panculture if new onset fever HEMATOLOGY & COAGULATION: Monitor H&H. Keep Hgb > 7 Transfuse 1 unit of PRBC for Hgb < 7 Transfuse 1 pack of platelets of platelets < 20, 000 Watch for any signs and symptoms of bleeding SKIN: Pressure ulcer prevention per facility protocol Specialty mattress as needed ORTHO/REHAB Continue PT/OT PRN: MEDICATIONS Tylenol 650 mg po every 4 hrs for fever zofran 4 mg IV every 6 hrs for n/v Hydralazine 5 mg IV every 4 hrs systolic pressure > 160 bowel regiment: lactulose 20 gm PO BID PRN constipation Supportive measures: PRN Treatment - Add when necessary meds for nausea, vomiting, pain, constipation, insomnia. DVT/GI prophylaxis- Continue SCDs Full CODE STATUS Disposition: Pending improvement in clinical condition All questions answered time spent: > 35 min This document was generated in part using voice recognition software, occasional wrong word or sound alike substitutions may have occurred due to the inherent limitations of voice recognition software. Read the chart carefully and recognize using context, where the substitutions have occurred. Although every effort was made to edit the content, fruit harvest machine operator and typing errors may occur This case was discussed with Dr. Sierra and above plan was formulated ATTESTATION BY PHYSICIAN I have seen and examined the patient. I reviewed the documentation, medical decision making, and treatment plan as noted by the mid-level provider above. I agree with the findings and plan of care. Cristela Sierra MD, [facility] Sep 04, 2024 10:09
[2024-09-04 16:21] LABS: INR 1.08 (0.85-1.15)
--- NOTE | 2024-09-04 17:32 | PN ---
INFECTIOUS DISEASE PROGRESS NOTE Date of Service: Sep 04, 2024 SUBJECTIVE: This is a 64 year old male patient who was seen today at bedside in room 412. Patient is awake, alert and oriented x3. Patient is status post left TMA on 08/31/2024. WBC still slightly elevated at 16.9 but no fever, temperature is 97.5. Patient with polymicrobial infection. We will continue on Zyvox and Zosyn IV and continue to follow patient's care. We will have case management evaluate patient for referral to LTAC. PHYSICAL EXAM EYES: Anicteric. Pupils equal and reactive. HENT: No oral thrush seen, moist Oral mucosa. NECK: Supple, no JVD or thyromegaly. LUNGS: Good air entry. No rales, no rhonchi. CARDIOVASCULAR: S1, S2 regular. No murmur heard. ABDOMEN: Soft, non tender, bowel sounds present, no organomegaly. CENTRAL NERVOUS SYSTEM: Awake, alert, oriented x 3. SKIN: No rashes, no swelling. LYMPHATICS: No peripheral lymphadenopathy MUSCULOSKELETAL: No joint swelling, erythema or tenderness. EXTREMITIES: Dry dressing to left lower extremity. Left TMA. BACK: No deformity, no pressure ulcer. GENITOURINARY: No dysuria or hematuria. Vital Sign (Last 12 Hours) 09/04/24 09/04/24 09/04/24 09/04/24 07:41 08:00 11:11 15:02 Temp 97.9 97.5 97.9 Pulse 75 74 78 Resp 16 16 16 B/P (MAP) 103/57 101/55 95/55 Pulse Ox 99 99 98 99 O2 Delivery Room Air Room Air* Room Air Room Air O2 Flow Rate 0 FiO2 21 Intake & Output (last 24hrs) 09/03/24 09/03/24 09/04/24 15:00 23:00 07:00 Intake Total 470.0 ml 50.0 ml Balance 470.0 ml 50.0 ml LABS: Laboratory: Test 09/04/24 15:35 09/04/24 15:28 09/04/24 04:47 09/03/24 03:22 Range/Units Prothrombin Time 11.4 9.6-11.6 SEC Prothromb Time International Ratio 1.08 0.85-1.15 Whole Blood Glucose 227 H 70-110 MG/DL White Blood Count 16.9 H 4.8-10.8 K/uL Red Blood Count 2.63 L 4.50-6.20 MIL/uL Hemoglobin 7.9 L 14.0-18.0 g/dL Hematocrit 24.2 L 42-54 % Mean Corpuscular Volume 92.0 79-99 fL Mean Corpuscular Hemoglobin 30.0 27.0-33.0 pg Mean Corpuscular Hemoglobin Concent 32.6 32.0-36.0 g/dL Red Cell Distribution Width 13.2 11.0-15.5 % Platelet Count 261 130-400 K/uL Mean Platelet Volume 10.0 7.5-10.5 fL Segmented Neutrophils % 86 H 40-70 % Lymphocytes % (Manual) 10 L 22-44 % Monocytes % (Manual) 3 2-9 % Eosinophils % (Manual) 1 1-6 % Nucleated Red Blood Cells 0.0 0.0-0.19 % Differential Comment MANUAL DIFFERENTIAL White Cell Morphology Comment SMUDGE CELLS 1+ Platelet Morphology Comment ADEQUATE Red Blood Cell Morphology HYPOCHROM CELLS 1+ Sodium Level 133 L 136-145 mmol/L Potassium Level 3.3 L 3.5-5.1 mmol/L Chloride Level 98 L 101-111 mmol/L Carbon Dioxide Level 27 21-32 mmol/L Blood Urea Nitrogen 16 7-18 mg/dL Creatinine 1.4 H 0.5-1.3 mg/dL Glomerular Filtration Rate Calc 55 >90 mL/min Random Glucose 141 H 70-105 mg/dL Total Calcium 7.7 L 8.5-10.1 mg/dL Phosphorus Level 2.3 L 2.5-4.9 mg/dL Total Bilirubin 0.6 0.2-1.0 mg/dL Aspartate Amino Transf (AST/SGOT) 13 10-37 U/L Alanine Aminotransferase (ALT/SGPT) 9 L 12-78 U/L Alkaline Phosphatase 54 50-136 U/L Total Protein 5.4 L 6.0-8.3 g/dL Albumin 1.7 L 3.5-5.0 g/dL Magnesium Level 1.90 1.80-2.40 mg/dL ASSESSMENT: Left foot diabetic ulcer with polymicrobial infection, possible osteomyelitis, status post transmetatarsal amputation on 08/31/2024. Urinary tract infection with ESBL E coli and Proteus mirabilis. Proteus mirabilis bacteremia. Chronic kidney disease. Leukocytosis, improving Diabetes mellitus Peripheral Artery disease PLAN: Continue Zyvox IV. Continue Zosyn. Continue pain management. Continue antidiabetics. Continue wound care. We will monitor renal function. Case management evaluation for referral to LTAC. This case was reviewed and discussed with my supervising physician and the above assessment and plan was formulated and agreed upon. ATTESTATION BY PHYSICIAN I have seen and examined the patient. I reviewed the documentation, medical decision making, and treatment plan as noted by the mid-level provider above. I agree with the findings and plan of care. SUSANNE BETTENCOURT MD, [facility] Sep 04, 2024 17:32
--- NOTE | 2024-09-04 21:17 | PN ---
NEPHROLOGY NOTE SUBJECTIVE: The patient has multiple problems including renal dysfunction, electrolyte problems. The patient has underlying diabetes, hypertension, peripheral vascular disease, right below-knee amputation. The patient has left foot wounds now. The patient has left TMA done. No other associated findings. No other associated factors. Followed up for renal problem and electrolyte problem. PHYSICAL EXAMINATION: GENERAL: Pale, no other distress. VITAL SIGNS: Blood pressure is 101/55, pulse 74, respiratory rate is 16. HEENT: Head is atraumatic, normocephalic. Pupils are round and reactive. Sclerae are anicteric. Conjunctivae not pale. Oral mucosa is not dry. NECK: Without masses or bruits. Thyroid is palpable. Neck has no bruits. CHEST: Shows equal thoracic percussion note being resonant in all areas. CARDIAC: Regular rhythm. No rubs. No S3, S4. No parasternal heave. LABORATORY DATA: We have reviewed available labs in detail. Labs have shown hemoglobin is up to 7.9, white cell count worsened to 16.9, BUN is 16, creatinine elevated at 1.4, low sodium, low potassium. PROBLEMS: * Acute on chronic artery failure. * Multiple electrolyte problems in a patient who has somewhat rising creatinine. No fever or chills. No other associated findings. PLAN: * Continued monitoring of renal function. Creatinine has been worse. We will need close followup. * Gentle replacement of potassium. * Follow up on blood pressure and electrolytes. * Continues on Plavix and continues on Zosyn. Insulin continues. The patient is on Zyvox now. Follow up on anemia and renal function. Nonsteroidal drugs to be avoided. Doses or medicine to be adjusted. Anemia will be followed up. I have discussed with other team physicians. The patient's old records and external records reviewed. Labs and x-rays were personally reviewed interpreted and followup labs, CBC, CMP ordered. Magnesium level also should be checked. Overall condition remains guarded. Seen several times today. Total time spent was more than 50 minutes today. Condition remain guarded. TID: [id number] RECEIPT: [id number]
--- NOTE | 2024-09-04 23:26 | HMCIMG ---
EXAM: CR Chest, 1 view CLINICAL HISTORY: Line placement. COMPARISON: CT chest dated 09/02/2024. FINDINGS: The right PICC line tip overlies the superior cavoatrial junction. The lungs show no infiltrates or other acute findings. No pleural effusion or pneumothorax. The cardiomediastinal silhouette is within normal limits. No acute osseous abnormality. IMPRESSION: The right PICC line tip overlies the superior cavoatrial junction. No acute cardiopulmonary process is evident. No adverse interval changes. /[place]
[2024-09-05] VITALS (7 sets, daily range): BP systolic 90–101; BP diastolic 52–64; PULSE 59–84; RESP 16–18; TEMP 97.9–98.6; O2SAT 98–100
[2024-09-05 03:16] LABS: NUCLEATED RED BLOOD CELLS 0.0 % (0.0-0.19); PLATELET COUNT (AUTO) 292.0 K/uL (130-400); RED BLOOD CELL COUNT(AUTO) 2.51 MIL/uL (4.50-6.20); RED CELL DISTRIBUTION WIDTH 13.0 % (11.0-15.5); WHITE BLOOD COUNT (AUTO) 17.7 K/uL (4.8-10.8)
[2024-09-05 03:30] LABS: ASPARTATE AMINOTRANSFERASE 13.0 U/L (10-37); CREATININE 1.4 mg/dL (0.5-1.3); GLOMERULAR FILTR. RATE CALC 55.0 mL/min (>90); GLUCOSE,RANDOM 154.0 mg/dL (70-105); SODIUM SERUM 135.0 mmol/L (136-145); TOTAL PROTEIN, SERUM 5.4 g/dL (6.0-8.3); UREA NITROGEN, BLOOD 19.0 mg/dL (7-18)
--- NOTE | 2024-09-05 06:44 | PN ---
SUBJECTIVE: The patient is a very pleasant 64-year-old diabetic male who is followed up for a diabetic ulcer, gangrene, osteomyelitis, gas gangrene, status post transmetatarsal amputation on the left. He has a [id number]-[id number] amputation on the right. He has a white count of 17.7. He has had H and H 7.5 and 22.7, platelets 292. BUN and creatinine levels are 19/1.4, glucose 138, albumin 1.6. The patient's cultures; Proteus mirabilis, Staph aureus, urine cultures, E. coli and Proteus mirabilis. Blood cultures, no growth x 48 hours. The patient has been followed by infectious disease, currently receiving Zyvox and Zosyn. The patient is being referred to a long-term acute care facility. The patient is being evaluated by the cardiology service for peripheral vascular disease. REVIEW OF SYSTEMS: CONSTITUTIONAL: Having no chills, fevers, night sweats, nausea, vomiting, or diarrhea. HEENT: No problems with eyes, ears, nose, or throat. CARDIOVASCULAR: Having no current chest pain. RESPIRATORY: No shortness of breath. GENITOURINARY: No dysuria. Elevated renal function, being followed by nephrology. GASTROINTESTINAL: No dysphagia. PSYCHIATRIC: Denied any depression. MUSCULOSKELETAL: Transmetatarsal amputation on the left, ossoi-xqz-mvjz amputation on the right. INTEGUMENTARY: Incision site well coapted and drain in place. GENITOURINARY: The patient has urinary tract infection secondary to E. coli and Proteus mirabilis. OBJECTIVE: EXTREMITIES: The patient's examination today shows his incision sites are well coapted. Drains are in place. Flap is warm. Capillary refill is intact to the left foot. No necrosis. No dehiscence. ASSESSMENT: Status post transmetatarsal amputation on the left, peripheral vascular disease, hypokalemia, hypomagnesemia, low albumin, polymicrobial wound infection, polymicrobial urinary tract infection, receiving Zyvox and Zosyn. The patient has leukocytosis, peripheral vascular disease, being followed by the cardiology service. PLAN: Betadine dressings, offloading measures, IV vancomycin, IV Zosyn, IV Zyvox. The patient is being followed by the cardiology service. Continue with offloading measures, physical therapy. Continue to follow the patient closely while in-house. Awaiting final disposition per cardiology service regarding his circulation status. TID: [id number] RECEIPT: [id number]
--- NOTE | 2024-09-05 09:46 | PN ---
[facility] PROGRESS NOTE Date of Service: Sep 05, 2024 Time of Service: 09:42 SUBJECTIVE: This is a 63-year-old male with underlying history of poorly controlled type 2 diabetes mellitus, peripheral arterial disease, prior history of right [id number]-[id number]-jwem amputation in 2020 due to right foot gangrene and necrotizing fasciitis. Patient presented to the emergency room August 30, 2024, with a chronic wounds involving toes to the foot, that according to him over the last several weeks has been getting more necrotic and foul smelling. He also reported having fever and chills. On presentation to the hospital, patient was noted to be febrile with T-max of 100.0 F, heart rate of 102, blood pressure of 81/50. [place] [address], hemoglobin of 10.3, platelet count of 059341. BMP remarkable for sodium of 125, potassium 5.1, chloride of 90, BUN of 52, creatinine 2.0, blood glucose of 180, CK of 436 cardiac panel showed troponin of six. Patient admitted for further treatment and management of wet gangrene of the right foot with suspected chronic osteomyelitis of the toes. Patient received IV fluids and IV antibiotics. Consultation with Podiatry, Infectious Disease requested. 08/31 patient remains admitted to the PCU, BP 130/63, afebrile, saturating normal on room air. Leukocytosis improving, today WBC 14.9. Creatinine better at 1.6. Results of blood culture Gram-negative rods, positive in two of two sets. X- ray of the left foot status post interval amputation great toe, 2nd toe, 3rd toe with soft tissue edema subcutaneous emphysema overlying the 1st metatarsal, possible osteomyelitis of the 3rd and 4th proximal phalanx. Arterial ultrasound mild intimal wall thickening in both lower limb arteries, both lower limb arteries demonstrate biphasic waveform in all arteries other family left posterior tibial, anterior tibial and dorsalis pedis which demonstrate monophasic waveform, no flow-limiting stenosis. Renal ultrasound normal kidneys , no hydronephrosis, mild debris is noted in the urinary bladder, cystitis should be excluded. Patient on broad-spectrum IV antibiotics with Zosyn and linezolid, ID and podiatry consulted, input noted and appreciated. Cardiology consultation r equested as the patient with peripheral arterial disease. We will follow input and recommendation. Renal ultrasound normal, no hydronephrosis, creatinine improving, nephrology consulted, we will follow input and recommendation. During my visit the patient is comfortable, back in the room from having debridement, eating lunch, tolerating well, getting good pain control with curre nt medical management, at bedside, updated. 09/01 Patient presented to the emergency room August 30, 2024, with a chronic wounds involving toes to the left foot. X-ray of the left foot status post interval amputation great toe, 2nd toe, 3rd toe with soft tissue edema subcutaneous emphysema overlying the 1st metatarsal, possible osteomyelitis of the 3rd and 4th proximal phalanx. Patient is status post transmetatarsal amputation the left foot 08/31/24. Tolerated the procedure well. Results of blood culture positive for Proteus mirabilis. Urine culture [id number] CFU, identification and susceptibility process. Patient Zosyn IV, continue to follow podiatry and ID input and recommendation. During my visit the patient is comfortable, eating lunch, tolerating well, alert oriented x3, getting IV antibiotics, denied chest pain, shortness shortness for breath, no nausea, no vomiting, getting good pain control with current medical management, plan of care discussed with the patient and the at bedside, all questions answered. Agreed and understood all the information provided. 09/02 Patient presented to the emergency room August 30, 2024, with a chronic wounds involving toes to the left foot. X-ray of the left foot status post interval amputation great toe, 2nd toe, 3rd toe with soft tissue edema subcutaneous emphysema overlying the 1st metatarsal, possible osteomyelitis of the 3rd and 4th proximal phalanx. Patient is status post transmetatarsal amputation the left foot 08/31/24. Tolerated the procedure well. Results of blood culture positive for Proteus mirabilis. Wound culture from the left foot positive for Proteus mirabilis, urine culture positive for E coli and Proteus mirabilis. Patient remains on broad-spectrum IV antibiotics with Zosyn until systolic IV, continue to follow podiatry and ID input and recommendation, continue local wound care. Consider assisted facility versus [facility] for continuation of medical care. During my visit the patient remains comfortably in bed, alert oriented x3, case discussed with the RN, no acute events overnight, plan to downgraded to the medical floor. 09/03 Seen and examined. Vitals are stable. White count is 16.5, H&H 8.3/25.3, CMP is stable. S/p TMA of Left foot with partial medial cuneiformectomy, transfer of the extensor hallucis longus to the flexor hallucis longus tendon, complex layered primary wound closure of a highly modified 22cm surgical incision by Dr. Lim on 08/31/24. Initial blood cultures are growing Proteus mirabilis, repeat blood cultures negative so far, intraoperative cultures positive for Proteus mirabilis and Staphylococcus aureus. Urine cultures growing ESBL E coli and Proteus mirabilis. CT angio results are pending. No incidences reported overnight. 09/04 The patient was seen and examined in the room this morning. He is alert oriented x3. denies pain at this time. Patient is postop day 4. S/P transmetatarsal amputation of the left foot with partial medial cuneiform anti a nd tendon transfer performed by Dr. Lim. He continues with IV antibiotics. Wound care being managed by Dr. Lim. 09/05 Today on bedside evaluation patient was found awake alert and oriented x 3. The power chart reviewed, vital signs, laboratory tests, imaging test and medications have been reviewed. Latest vitals are stable, white count is elevated at 73.7, H&H 7.5/22.7, renal function remains slightly elevated BUN at 19, creatinine 1.4. Case management is coordinating for LTAC placement. REVIEW OF SYSTEMS CONSTITUTIONAL: fevers, chills, malaise, poor oral intake NEUROLOGICAL: Denies headache, amaurosis fugax, motor weakness, sensory deficit, vertigo/spinning sensation, gait abnormalities, or tremors. ENT: No hearing loss, otalgia, otorrhea, rhinitis, rhinorrhea, hoarseness, or sore throat. CARDIOVASCULAR: Denies any exertional angina, dyspnea on exertion, orthopnea, paroxysmal nocturnal dyspnea, palpitations, life-threatening arrhythmias, claudication. PULMONARY: Denies any shortness of breath, cough, phlegm/sputum, hemoptysis, pleuritic chest pain. SLEEP: Denies morning headaches, daytime somnolence or napping. Denies difficulty falling asleep, staying asleep, waking from sleep. Denies knowledge of snoring. GASTROINTESTINAL: Denies any type of dysphagia to either liquids or solids. Denies nausea, vomiting, pyrosis, early satiety, abdominal pain, diarrhea, constipation, or changes in stool consistency or caliber. Denies coffee-ground emesis, hematemesis, hematochezia, or melanotic stools. GENITOURINARY: Denies frequency, urgency, nocturia, hematuria or incontinence (Storage/Irritative symptoms.) Low urinary stream, straining to void, urinary intermittency or hesitancy, splitting of the voiding stream, terminal dribbling. ENDOCRINOLOGIC: Hx of type 2 Diabetes mellitus HEMATOLOGIC: Denies thrombophilia/previous clots, or coagulopathy/bleeding disorders. ONCOLOGIC: Denies personal history of malignancy. DERMATOLOGIC: foul smelling necrotic toes of the left foot with non healing wounds PSYCHIATRIC: Denies any suicidal or homicidal ideation. Denies hallucinations. PHYSICAL EXAM GENERAL APPEARANCE: The patient is awake, alert, and oriented, in no acute cardiopulmonary distress. NEUROLOGICAL: Cranial nerves II-XII grossly intact. Motor is 5/5 in bilateral upper and lower extremities proximal to distal. No sensory deficits. HEENT: Face is symmetric. Pupils are equal and reactive. Extraocular movements are intact. NECK: Supple. No JVD. No thyromegaly. No submental, submandibular, pre- /postauricular, occipital or supraclavicular lymphadenopathy. CHEST: Normal chest expansion. No Telemetry. LUNGS: Absence of any rales, rhonchi or any wheezing. CARDIOVASCULAR: Regular. S1 and S2 normal. No appreciable rubs, murmurs or gallops. ABDOMEN: Soft, nontender, and nondistended. There is no rebound, voluntary guarding, or rigidity. : Deferred. No Sandhu. EXTREMITIES: Left foot noted to have extremely foul-smelling wound with necrotic toes noted from 2nd two fifth digit, area of erythema and surrounding cellulitic changes noted Vital Signs (last 8hr) Date Time Temp Pulse Resp B/P (MAP) Pulse Ox O2 Delivery O2 Flow Rate FiO2 09/05/24 08:00 100 Room Air* 0 21 09/05/24 08:00 98.6 82 17 100/52 100 Room Air 21 09/05/24 04:00 97.9 79 18 91/52 96 Room Air LABS: Laboratory: Test 09/05/24 05:41 09/05/24 03:10 09/04/24 15:35 09/04/24 04:47 Range/Units Whole Blood Glucose 138 H 70-110 MG/DL White Blood Count 17.7 H 4.8-10.8 K/uL Red Blood Count 2.51 L 4.50-6.20 MIL/uL Hemoglobin 7.5 L 14.0-18.0 g/dL Hematocrit 22.7 L 42-54 % Mean Corpuscular Volume 90.4 79-99 fL Mean Corpuscular Hemoglobin 29.9 27.0-33.0 pg Mean Corpuscular Hemoglobin Concent 33.0 32.0-36.0 g/dL Red Cell Distribution Width 13.0 11.0-15.5 % Platelet Count 292 130-400 K/uL Mean Platelet Volume 9.5 7.5-10.5 fL Nucleated Red Blood Cells 0.0 0.0-0.19 % Sodium Level 135 L 136-145 mmol/L Potassium Level 3.5 3.5-5.1 mmol/L Chloride Level 99 L 101-111 mmol/L Carbon Dioxide Level 26 21-32 mmol/L Blood Urea Nitrogen 19 H 7-18 mg/dL Creatinine 1.4 H 0.5-1.3 mg/dL Glomerular Filtration Rate Calc 55 >90 mL/min Random Glucose 154 H 70-105 mg/dL Total Calcium 7.4 L 8.5-10.1 mg/dL Total Bilirubin 0.5 0.2-1.0 mg/dL Aspartate Amino Transf (AST/SGOT) 13 10-37 U/L Alanine Aminotransferase (ALT/SGPT) 9 L 12-78 U/L Alkaline Phosphatase 60 50-136 U/L Total Protein 5.4 L 6.0-8.3 g/dL Albumin 1.6 L 3.5-5.0 g/dL Prothrombin Time 11.4 9.6-11.6 SEC Prothromb Time International Ratio 1.08 0.85-1.15 Segmented Neutrophils % 86 H 40-70 % Lymphocytes % (Manual) 10 L 22-44 % Monocytes % (Manual) 3 2-9 % Eosinophils % (Manual) 1 1-6 % Differential Comment MANUAL DIFFERENTIAL White Cell Morphology Comment SMUDGE CELLS 1+ Platelet Morphology Comment ADEQUATE Red Blood Cell Morphology HYPOCHROM CELLS 1+ Phosphorus Level 2.3 L 2.5-4.9 mg/dL Current Medications Medications (Trade) Dose Ordered Sig/Nathaly Route PRN Reason Start Time Stop Time Status Last Admin Dose Admin Acetaminophen (TYLenol 325MG TAB) 650 mg Q6H PRN PO MILD PAIN (1-3) 08/30/24 17:30 09/29/24 17:29 Betamethasone Valerate (Betamethasone Valerate) 1 APPLICATION TID TP 09/01/24 14:00 10/01/24 13:59 Cancel Clopidogrel Bisulfate (plaVIX 75MG) 75 mg DAILY PO 09/02/24 09:00 10/02/24 08:59 09/05/24 09:03 75 MG Dextrose (D50w) 50 ml AD PRN IV HYPOGLYCEMIA PROTOCOL 08/30/24 18:00 09/29/24 17:59 Glucagon (Glucagon 1mg Kit) 1 mg AD PRN IM HYPOGLYCEMIA PROTOCOL 08/30/24 18:00 09/29/24 17:59 Hydromorphone HCl (DiLAUDid 0.5MG INJ) 0.2 mg Q6H PRN IVP SEVERE PAIN (7-10) 08/30/24 17:30 09/04/24 17:29 DC Insulin Human Regular (humuLIN R 100 UNIT/ML 3ML) INSULIN SLIDING SCAL... ACHS SQ 08/30/24 21:00 09/29/24 20:59 09/04/24 22:11 2 UNIT Linezolid 300 ml @ 150 mls/hr Q12H IV 08/30/24 18:00 08/30/24 17:37 DC Linezolid 300 ml @ 150 mls/hr Q12H IV 08/30/24 20:00 09/09/24 19:59 09/05/24 09:02 150 MLS/HR Ondansetron HCl (zoFRAN 4MG INJ) 4 mg Q6H PRN IVP NAUSEA/VOMITING 08/30/24 17:30 09/29/24 17:29 Pharmacy Profile Note (Pharmacy Communication) 1 each ONCE MISC 08/30/24 17:30 09/01/24 07:16 DC 08/30/24 17:56 1 EACH Piperacillin Sod/ Tazobactam Sod (Zosyn 3.375gm+NS 50ml) 3.375 gm Q12H IVPB 08/30/24 21:00 08/31/24 06:42 DC 08/30/24 23:06 3.375 GM Piperacillin Sod/ Tazobactam Sod (Zosyn 3.375gm+NS 50ml) 3.375 gm Q8H IVPB 08/31/24 07:00 09/09/24 20:59 09/05/24 06:43 3.375 GM Sodium Chloride 1,000 ml @ 75 mls/hr [id number] IV 08/30/24 20:00 09/01/24 12:55 DC 08/31/24 22:29 75 MLS/HR Thiamine HCl (Vitamin B-1) 100 mg Q24H IVP 08/30/24 18:00 09/01/24 16:47 DC 08/31/24 18:33 100 MG Thiamine HCl (Vitamin B-1) 100 mg Q24H IVP 09/01/24 20:00 10/01/24 19:59 09/04/24 19:49 100 MG Vitamin B Complex/ Vit C/Folic Acid (Nephrovite Tablet) 1 cap DAILY PO 09/01/24 09:00 10/01/24 08:59 09/05/24 09:02 1 CAP DIAGNOSTICS / RADIOLOGY: [ ] ASSESSMENT: Gas/wet gangrene of the left foot with extensively necrotic toes and underlying acute osteo-myelitis of multiple toes, POA Sepsis 2/2 complicated soft tissue infection of the left foot with underlying osteomyelitis)/Gram-negative bacteremia, POA Status post transmetatarsal amputation left foot 08/31/2024 Gram-negative bacteremia secondary secondary to Proteus mirabilis POA Urinary tract infection, secondary to E coli and Proteus mirabilis, POA Left foot wound culture positive for Proteus mirabilis Poorly controlled type 2 diabetes mellitus, POA Acute renal failure, POA Acute rhabdomyolysis, POA Anemia, POA Significant leukocytosis secondary to underlying septicemia, POA Moderate hyponatremia, POA Hx of right BKA, POA PLAN: Treatment: - Surgical: Transmetatarsal amputation of the left foot with partial medial cuneiformectomy and tendon transfer was performed. - Medications: Continued IV antibiotics with IV Zosyn and Zyvox. - ID recommends LTAC placement, continue antibiotics for four weeks - PICC line placed ready to use - Wound Care: Wound packing with betadine sulcos and complex layered primary wound closure. - case management to coordinate for LTAC placement Tests: - Pending final wound culture results. - Blood cultures showed Proteus mirabilis; intraoperative cultures showed Proteus mirabilis and Staphylococcus aureus. - CT angiogram of bilateral lower extremities showed atherosclerosis and occlusions. Patient Education: - Discussed post-operative care and the importance of completing the antibiotic course. Follow-Up: - The patient is being followed by infectious disease for ongoing antibiotic management. - Director Of Billing follow-up for management of peripheral arterial disease. - Nephrology follow-up for renal function monitoring. Disposition: - Continue monitoring in the hospital setting due to the complexity of the condition and post-operative status. NEURO: Minimize central acting medications as possible. Fall Precautions. Well lighted room through the day and minimize interruptions through the night to prevent acute delirium. PULMONARY: Supplemental 02 as needed BiPAP as necessary, for respiratory distress Titrate Fio2 to keep Spo2 > or = 90% DuoNebs and CPT as needed IS hourly while awake for pulmonary hygiene prn Out of bed to chair as tolerated Maintain aspiration precautions at all times CARDIOVASCULAR: Pending CT angio results Continue Plavix 75 mg p.o. daily Social consulted for help to obtain medications that we will need to be taking uninterrupted for at least three months before Dr. Villalpando can proceed with any invasive studies Following mechanical handyman's recommendations Follow hemodynamics. Vital signs per facility protocol GI & NUTRITION: Continue nutritional support Aspirations precautions Prokinetic agents and laxatives as needed KIDNEYS & ELECTROLYTES: Strict monitoring of intake and output Daily weights Avoid nephrotoxic agents Monitor electrolytes and replace as needed Goal urine output of 30mL/hr or 0.5mL/kg/hr Medications to be dosed according to renal function. Avoid contrast if possible ENDOCRINE: Maintain blood glucose between 100-180 at all times. Insulin sliding scale for blood glucose management Hypoglycemia and hyperglycemia protocol in place INFECTIOUS DISEASE: Trend temperature, WBC and procalcitonin level Follow cultures, deescalate antibiotics as soon as possible. Panculture if new onset fever HEMATOLOGY & COAGULATION: Monitor H&H. Keep Hgb > 7 Transfuse 1 unit of PRBC for Hgb < 7 Transfuse 1 pack of platelets of platelets < 20, 000 Watch for any signs and symptoms of bleeding SKIN: Pressure ulcer prevention per facility protocol Specialty mattress as needed ORTHO/REHAB Continue PT/OT PRN: MEDICATIONS Tylenol 650 mg po every 4 hrs for fever zofran 4 mg IV every 6 hrs for n/v Hydralazine 5 mg IV every 4 hrs systolic pressure > 160 bowel regiment: lactulose 20 gm PO BID PRN constipation Supportive measures: PRN Treatment - Add when necessary meds for nausea, vomiting, pain, constipation, insomnia. DVT/GI prophylaxis- Continue SCDs Full CODE STATUS Disposition: LTAC placement All questions answered time spent: > 35 min This document was generated in part using voice recognition software, occasional wrong word or sound alike substitutions may have occurred due to the inherent limitations of voice recognition software. Read the chart carefully and recognize using context, where the substitutions have occurred. Although every effort was made to edit the content, professor/nurse anesthetist and typing errors may occur This case was discussed with Dr. Sierra and above plan was formulated ATTESTATION BY PHYSICIAN I have seen and examined the patient. I reviewed the documentation, medical decision making, and treatment plan as noted by the mid-level provider above. I agree with the findings and plan of care. Cristela Sierra MD, [facility] Sep 05, 2024 09:46
--- NOTE | 2024-09-05 13:20 | PN ---
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 He presented to emergency room for evaluation of left foot wounds. S/p left TMA by Dr. Lim He continues to be followed by Cardiology, pending recommendations He was noted to have worsening elevated BUN/creatinine We have been consulted for renal failure. Renal function and electrolytes are stable Hemoglobin has remained stable Renal ultrasound showed normal kidneys with no hydronephrosis. He continues on antibiotics as per ID Blood cultures are positive for Proteus mirabilis He continues to be followed by Podiatry He was seen in the medical floor, in no acute distress Prognosis remains guarded REVIEW OF SYSTEMS: GENERAL: Positive for left foot wound. NEUROLOGIC: Negative for any blurry vision, blind spots, double vision, facial asymmetry, dysphagia, dysarthria, hemiparesis, hemisensory deficits, vertigo, ataxia. HEENT: Negative for any head trauma, neck trauma, neck stiffness, photophobia, phonophobia, sinusitis, rhinitis. CARDIAC: Negative for any chest pain, dyspnea on exertion, paroxysmal nocturnal dyspnea, peripheral edema. PULMONARY: Negative for any shortness of breath, wheezing, COPD, or TB exposure. GASTROINTESTINAL: Negative for any abdominal pain, nausea, vomiting, bright red blood per rectum, melena. GENITOURINARY: Negative for any dysuria, hematuria, incontinence. INTEGUMENTARY: Negative for any rashes, cuts, insect bites. RHEUMATOLOGIC: Negative for any joint pains, photosensitive rashes, history of vasculitis or kidney problems. HEMATOLOGIC: Negative for any abnormal bruising, frequent infections or bleeding. Vital Signs (last 8hr) Date Time Temp Pulse Resp B/P (MAP) Pulse Ox O2 Delivery O2 Flow Rate FiO2 09/05/24 12:00 98.1 59 16 98/52 100 Room Air 21 09/05/24 08:00 100 Room Air* 0 21 09/05/24 08:00 98.6 82 17 100/52 100 Room Air 21 PHYSICAL EXAM: GENERAL: Alert and oriented x 3. No acute distress. Well-nourished. EYES: EOMI. Anicteric. HENT: Moist mucous membranes. No scleral icterus. No cervical lymphadenopathy. LUNGS: Clear to auscultation bilaterally. No accessory muscle use. CARDIOVASCULAR: Regular rate and rhythm. No murmur. No JVD. ABDOMEN: Soft, non-tender and non-distended. No palpable masses. EXTREMITIES: No edema. Non-tender. Right BKA, left TMA SKIN: No rashes or lesions. Warm. NEUROLOGIC: No focal neurological deficits. CN II-XII grossly intact, but not individually tested. PSYCHIATRIC: Cooperative. Appropriate mood and affect. Current Medications Medications (Trade) Dose Ordered Sig/Nathaly Route Start Time Stop Time Status Last Admin Dose Admin Betamethasone Valerate (Betamethasone Valerate) 1 APPLICATION TID TP 09/01/24 14:00 10/01/24 13:59 Cancel Clopidogrel Bisulfate (plaVIX 75MG) 75 mg DAILY PO 09/02/24 09:00 10/02/24 08:59 Insulin Human Regular (humuLIN R 100 UNIT/ML 3ML) INSULIN SLIDING SCAL... ACHS SQ 08/30/24 21:00 09/29/24 20:59 09/01/24 16:50 3 UNIT Linezolid 300 ml @ 150 mls/hr Q12H IV 08/30/24 18:00 08/30/24 17:37 DC Linezolid 300 ml @ 150 mls/hr Q12H IV 08/30/24 20:00 09/09/24 19:59 09/02/24 09:34 150 MLS/HR Pharmacy Profile Note (Pharmacy Communication) 1 each ONCE MISC 08/30/24 17:30 09/01/24 07:16 DC 08/30/24 17:56 1 EACH Piperacillin Sod/ Tazobactam Sod (Zosyn 3.375gm+NS 50ml) 3.375 gm Q12H IVPB 08/30/24 21:00 08/31/24 06:42 DC 08/30/24 23:06 3.375 GM Piperacillin Sod/ Tazobactam Sod (Zosyn 3.375gm+NS 50ml) 3.375 gm Q8H IVPB 08/31/24 07:00 09/09/24 20:59 09/02/24 05:21 3.375 GM Sodium Chloride 1,000 ml @ 75 mls/hr [id number] IV 08/30/24 20:00 09/01/24 12:55 DC 08/31/24 22:29 75 MLS/HR Thiamine HCl (Vitamin B-1) 100 mg Q24H IVP 08/30/24 18:00 09/01/24 16:47 DC 08/31/24 18:33 100 MG Thiamine HCl (Vitamin B-1) 100 mg Q24H IVP 09/01/24 20:00 10/01/24 19:59 09/01/24 19:55 100 MG Vitamin B Complex/ Vit C/Folic Acid (Nephrovite Tablet) 1 cap DAILY PO 09/01/24 09:00 10/01/24 08:59 09/02/24 09:34 1 CAP LABORATORY: [ ] Hematology Labs: Test 09/05/24 03:10 09/04/24 04:47 Range/Units White Blood Count 17.7 H 4.8-10.8 K/uL Red Blood Count 2.51 L 4.50-6.20 MIL/uL Hemoglobin 7.5 L 14.0-18.0 g/dL Hematocrit 22.7 L 42-54 % Mean Corpuscular Volume 90.4 79-99 fL Mean Corpuscular Hemoglobin 29.9 27.0-33.0 pg Mean Corpuscular Hemoglobin Concent 33.0 32.0-36.0 g/dL Red Cell Distribution Width 13.0 11.0-15.5 % Platelet Count 292 130-400 K/uL Mean Platelet Volume 9.5 7.5-10.5 fL Nucleated Red Blood Cells 0.0 0.0-0.19 % Segmented Neutrophils % 86 H 40-70 % Lymphocytes % (Manual) 10 L 22-44 % Monocytes % (Manual) 3 2-9 % Eosinophils % (Manual) 1 1-6 % Differential Comment MANUAL DIFFERENTIAL White Cell Morphology Comment SMUDGE CELLS 1+ Platelet Morphology Comment ADEQUATE Red Blood Cell Morphology HYPOCHROM CELLS 1+ Chemistry Labs: Test 09/05/24 11:47 09/05/24 03:10 09/04/24 04:47 Range/Units Whole Blood Glucose 200 H 70-110 MG/DL Sodium Level 135 L 136-145 mmol/L Potassium Level 3.5 3.5-5.1 mmol/L Chloride Level 99 L 101-111 mmol/L Carbon Dioxide Level 26 21-32 mmol/L Blood Urea Nitrogen 19 H 7-18 mg/dL Creatinine 1.4 H 0.5-1.3 mg/dL Glomerular Filtration Rate Calc 55 >90 mL/min Random Glucose 154 H 70-105 mg/dL Total Calcium 7.4 L 8.5-10.1 mg/dL Total Bilirubin 0.5 0.2-1.0 mg/dL Aspartate Amino Transf (AST/SGOT) 13 10-37 U/L Alanine Aminotransferase (ALT/SGPT) 9 L 12-78 U/L Alkaline Phosphatase 60 50-136 U/L Total Protein 5.4 L 6.0-8.3 g/dL Albumin 1.6 L 3.5-5.0 g/dL Phosphorus Level 2.3 L 2.5-4.9 mg/dL Coagulation Labs: Test 09/04/24 15:35 Range/Units Prothrombin Time 11.4 9.6-11.6 SEC Prothromb Time International Ratio 1.08 0.85-1.15 DIAGNOSTICS / RADIOLOGY: PATIENT: CHADD MAGDALENO MR#: [id number] : 1960 SEX: M AGE: 64 LOCATION: [facility] ORDER 48 STATUS: ADM IN REPORT#: [id number] SERVICE 47 REASON: CONFIRM PICC LINE PLACEMENT ORDERING PHYSICIAN: BRAULIO BRIDGES MD PROCEDURE: CXR1VW - CHEST 1VW EXAM: CR Chest, 1 view CLINICAL HISTORY: Line placement. COMPARISON: CT chest dated 09/02/2024. FINDINGS: The right PICC line tip overlies the superior cavoatrial junction. The lungs show no infiltrates or other acute findings. No pleural effusion or pneumothorax. The cardiomediastinal silhouette is within normal limits. No acute osseous abnormality. IMPRESSION: The right PICC line tip overlies the superior cavoatrial junction. No acute cardiopulmonary process is evident. No adverse interval changes. /[place] DICTATED BY: GISEL CHACON Jr., MD DATE: 09/05/2424 ELECTRONICALLY SIGNED BY: GISEL CHACON Jr., MD DATE: 09/05/2424 PATIENT: CHADD MAGDALENO MR#: [id number] : 1960 SEX: M AGE: 64 LOCATION: [facility] ORDER 1020 STATUS: ADM IN REPORT#: [id number] SERVICE 1018 REASON: PAD; with LEFT lower extremity runoff ORDERING PHYSICIAN: KANIKA CROFT PROCEDURE: CTA ABDAOR - CT ANGIO ABD AORTA W RUNOFF EXAM: CTA bilateral Lower Extremities with Intravenous Contrast. CLINICAL HISTORY: Amputation of the right lower limb. TECHNIQUE: Axial CTA images of the bilateral Lower Extremities performed with intravenous contrast in the arterial phase with coronal and sagittal reformatted images generated and reviewed. 3-D reformatted images generated on an independent workstation and also reviewed. CONTRAST: Yes. COMPARISON: None provided. FINDINGS: Aorta: Atherosclerosis in the aorta with multiple calcified and non-calcified plaques at the origin of coeiliac axis, superior mesenteric artery and in the aortic neves without any flow limiting stenosis. VASCULATURE: Common Femoral Artery: Mild circumferential wall thickening with small calcified and non-calcified plaques on both sides without any flow limiting stenosis. Superficial Femoral Artery: Circumferential wall thickening with calcified plaques causing focal areas of luminal narrowing by approximately 20-30% on both sides. There is a focal area of luminal narrowing by approximately 60-70% in the lower one-thirds of the right superficial femoral artery. Deep Femoral Artery: No acute finding. No occlusion, rupture, aneurysm or dissection. Popliteal and Calf Arteries: There is circumferential calcifications in the bilateral popliteal and anterior and posterior tibial arteries with complete occlusion of the right popliteal artery and the right anterior and posterior tibial arteries. The left popliteal artery shows no significant luminal compromise. There is attenuated contrast opacification in the upper and mid segments of left anterior tibial artery with occlusion distally. Soft tissues: Unremarkable. Bones: Status post right below the knee amputation. No acute osseous abnormality. IMPRESSION: 1. Atherosclerosis in the aorta and in arteries of bilateral lower limb with complete occlusion of the right popliteal and proximal right anterior and posterior tibial arteries. Status post right below the knee amputation. 2. High-grade stenosis in the proximal and mid left anterior tibial artery with occlusion distally. 3. No abdominal aortic aneurysm or dissection. /[place] DICTATED BY: PATRICIA LAWSON MD DATE: 09/04/24647 ELECTRONICALLY SIGNED BY: PATRICIA LAWSON MD DATE: 09/04/24647 PATIENT: CHADD MAGDALENO MR#: [id number] : 1960 SEX: M AGE: 64 LOCATION: [facility] ORDER 1245 STATUS: ADM IN REPORT#: [id number] SERVICE 1227 REASON: cad,chf ORDERING PHYSICIAN: CHARIS OROSCO MD PROCEDURE: ECHO [facility] - ECHO 2-D COMPLETE APPROVED REPORT EXAM: Two-dimensional and M-mode echocardiogram with Doppler and color Doppler. Study Details: Diabts M , PVD INDICATION ICD: CAD , chf 2D Dimensions RVDd 3.4 cm LVEF(%) 70.2 (>50%) LVED Vol(simp.) 86.7 mL IVSd 0.9 (0.7-1.1cm) FS(%) 40 % LVES Vol(simp.) 38.5 mL LVDd 4.6 (3.8-5.6cm) LA (2D) 2.8 (1.6-4.0cm) LVEF(%, simp.) 56 % PWd 0.8 (0.7-1.1cm) Ao Root(2D) 3.3 (2.0-3.7cm) LA ESV INDEX (4CH) 21.00 mL/m2 IVSs 1.1 cm LVOT diam 2.0 (1.8-2.4cm) LA ESV INDEX (2CH) 15.31 mL/m2 LVDs 2.8 (2.5-4.0cm) LA ESV INDEX (BP) 15.38 mL/m2 PWs 1.2 cm Deformation Strain Apical 4 16.8 % Apical 2 13.2 % Apical 3 15.0 % Global Strain 15.0 % M-Mode Dimensions EPSS 1.8 cm LA (MM) 3.4 (1.6-4.0cm) Ao Root(MM) 3.4 (2.0-3.7cm) Aortic Valve AoV Vmax 0.9 m/s Ao Peak GR 3.2 mmHg LVOT Vmax 0.8 m/s AoV VTI 0.2 m Ao Mean GR 1.7 mmHg LVOT VTI 0.15 m CAITLIN (VMAX) 3.04 cm2 CAITLIN (VTI) 3.1 cm2 Mitral Valve MV E Vmax 61.6 cm/s DECEL Time 244 ms MV A Vmax 95.3 cm/s E/A ratio 0.6 TDI E/E' Medial 10.5 E/E' Lateral 6.4 Medial E' Peak V 5.86 cm/s Lateral E' Peak V 9.56 cm/s Pulmonary Valve PV Vmax 0.9 m/s PV VTI 0.18 m PV Mean GR 2.0 mmHg PV Peak GR 3.5 mmHg Left Ventricle The left ventricle is normal size. There is normal LV segmental wall motion. There is normal left ventricular wall thickness. LVEF is 50-55%. Stage I diastolic dysfunction. Right Ventricle The right ventricle is normal size. The right ventricular systolic function is normal. Atria The left atrium size is normal. The interatrial septum is intact with no evidence for an atrial septal defect. The right atrium size is normal. Aortic Valve Aortic valve NCC leaflets mild calcified. Trace aortic regurgitation. There is no aortic valvular stenosis. Mitral Valve The mitral valve is mildly thickened. Mild posterior mitral annular calcification present. There is no evidence of significant mitral regurgitation. There is no mitral valve stenosis. Tricuspid Valve The tricuspid valve is normal in structure. There is no tricuspid valve regurgitation noted. Pulmonic Valve Pulmonic valve is not well visualized. There is trace pulmonic valvular regurgitation. Great Vessels The aortic root is normal in size. The ascending aorta is normal in size. IVC is not well visualized. Pericardium not visualized Conclusion LVEF is 50-55%. Stage I diastolic dysfunction. There is normal LV segmental wall motion. Aortic valve NCC leaflets mild calcified. Trace aortic regurgitation. The mitral valve is mildly thickened. Mild posterior mitral annular calcification present. DICTATED BY: CHARIS OROSCO MD DATE: 09/01/24 1114 ELECTRONICALLY SIGNED BY: CHARIS OROSCO MD DATE: 09/01/24 1417 PATIENT: CHADD MAGDALENO MR#: [id number] : 1960 SEX: M AGE: 63 LOCATION: [facility] ORDER 37 STATUS: ADM IN REPORT#: [id number] SERVICE 34 REASON: rule out any significant lung infiltrates, sepsis, foot infection ORDERING PHYSICIAN: BRAULIO BRIDGES MD PROCEDURE: CXR1VW - CHEST 1VW EXAM: CR Chest, 1 View. CLINICAL HISTORY: rule out any significant lung infiltrates, sepsis, foot infection COMPARISON: 05/02/2017 FINDINGS: LUNGS: There is no mass, infiltrate, or acute pulmonary abnormality. PLEURAL SPACES: No pleural effusion or pneumothorax. MEDIASTINUM: Cardiac size and mediastinal contours within normal limits. BONES: No aggressive appearing osseous lesion seen. IMPRESSION: No acute cardiopulmonary pathology is evident. /[place] DICTATED BY: PATRICIA LAWSON MD DATE: 08/30/242003 REASON: acute renal failure, uncontrolled DM II ORDERING PHYSICIAN: BRAULIO BRIDGES MD PROCEDURE: RENAL - US RENAL SONOGRAM EXAMINATION: Renal ultrasound. COMPARISON: None provided. HISTORY: acute renal failure, uncontrolled DM II FINDINGS: The right kidney measures 9.9 cm and is normal in echotexture. The left kidney measures 9.2 cm and is normal in echotexture. There are no focal renal lesions. There are no renal stones. There is no hydronephrosis. There is mild debris noted in the urinary bladder. Cystitis should be excluded. IMPRESSION: Normal kidneys. No hydronephrosis Mild debris noted in the urinary bladder. Cystitis should be excluded. /[place] DICTATED BY: PATRICIA LAWSON MD DATE: 08/30/242022 PATIENT: CHADD MAGDALENO MR#: [id number] : 1960 SEX: M AGE: 63 LOCATION: [facility] ORDER 23 STATUS: ADM IN REPORT#: [id number] SERVICE REASON: non healing left foot wound with necrotic toes, assess for severe PAD ORDERING PHYSICIAN: BRAULIO BRIDGES MD PROCEDURE: ART B LE - US ARTERIAL BILAT LOW EXT DUPL EXAMINATION: DUPLEX ULTRASOUND EXAMINATION OF THE BILATERAL LOWER EXTREMITY ARTERIES. CLINICAL HISTORY: Non-healing wound in the left, to assess for peripheral arterial disease. COMPARISON: Lower extremity arterial doppler dated 12/29/2020. FINDINGS: Peak systolic velocities within the right lower arteries are as follows: Common femoral artery: 56 cm/s. Superficial femoral artery: 55 cm/s at proximal, 71 cm/s at mid, and 50 cm/s at distal segments. Popliteal artery: 28 cm/s at proximal and 37 cm/s at distal segments. The right lower limb arteries demonstrate biphasic waveforms in all arteries. The below knee arteries are not assessed, post amputation status. Peak systolic velocities within the left lower arteries are as follows: Common femoral artery: 66 cm/s. Superficial femoral artery: 71 cm/s at proximal, 72 cm/s at mid, and 72 cm/s at distal segments. Popliteal artery: 56 cm/s at proximal and 55 cm/s at distal segments. Posterior tibial artery: 30 cm/s. Anterior tibial artery: 47 cm/s. Dorsalis pedis artery: 67 cm/s. The left lower limb arteries demonstrate biphasic waveforms in all arteries other than posterior tibial, anterior tibial, and dorsalis pedis arteries which demonstrate monophasic waveforms. There is intimal wall thickening in both lower limb arteries. IMPRESSION: Mild intimal wall thickening in both the lower limb arteries. Both lower limb arteries demonstrate biphasic waveforms in all arteries other than left posterior tibial, anterior tibial, and dorsalis pedis arteries which demonstrate monophasic waveforms. No flow limiting lesions. /[place] DICTATED BY: PATRICIA LAWSON MD DATE: 08/30/242034 PATIENT: CHADD MAGDALENO MR#: [id number] : 1960 SEX: M AGE: 63 LOCATION: [facility] ORDER 1501 STATUS: ADM IN REPORT#: [id number] SERVICE 1500 REASON: SEPSIS ORDERING PHYSICIAN: IVON UNDERWOOD MD PROCEDURE: FT 3VW LT - FOOT COMP 3+VWS LT EXAM: CR Left foot, 3 View. CLINICAL HISTORY: SEPSIS COMPARISON: Comparison: Radiograph dated September 21, 2016 Findings: AP, oblique, lateral views of the left foot are submitted. Interval amputation of the great toe from the distal metatarsal. There is edema and subcutaneous emphysema within the soft tissues overlying the first metatarsal. Presumed interval amputation of the second toe from the mid to distal second proximal phalanx and of the third toe from the distal interphalangeal joint. Clinical correlation is advised. There is suggestion of bone loss and cortical irregularities seen within the mid diaphyses of the 3rd and 4th proximal phalanxes. Findings may reflect osteomyelitis. Recommend contrast-enhanced MRI of the midfoot/forefoot for further evaluation. IMPRESSION: 1. Status post interval amputation of great toe, second toe, and third toe with soft tissue edema and subcutaneous emphysema overlying the first metatarsal. 2. Possible osteomyelitis of 3rd and 4th proximal phalanxes. Recommend MRI of the midfoot/forefoot for further evaluation. /[place] DICTATED BY: GISEL CHACON Jr., MD DATE: 08/30/24 185 ASSESSMENT: Acute renal failure Acute rhabdomyolysis Anemia Hyponatremia Sepsis Blood culture positive for Gram-negative rods Gas/wet gangrene of the left foot with extensively necrotic toes and underlying acute osteo-myelitis of multiple toe Poorly controlled type 2 diabetes mellitus Significant leukocytosis secondary to underlying septicemia PLAN: Labs, diagnostic, radiologic exams reviewed and interpreted by myself and supervising physician. We have reviewed external records in detail Follow up Podiatry recommendations Fluid restriction is advised Require close monitoring of renal function and electrolytes Order CBC, CMP, and electrolytes in am Continue with antibiotics as per ID BiPAP as necessary, for respiratory distress Monitor blood pressure adjust medication doses as needed Avoid hypotensive episodes May use Dilaudid 0.5 mg IV every 6 hours as needed for severe pain Monitor blood sugars Strict intake, output, and daily weight should be monitored Please renally adjust medications Avoid nephrotoxic and nonsteroidal drugs Avoid contrast if possible Will continue to monitor renal function, anemia, electrolytes Treatment plan discussed with patient Questions were answered We have discussed with the other team physicians in detail about the care plan We will continue to monitor the patient closely ATTESTATION BY PHYSICIAN I have seen and examined the patient. I reviewed the documentation, medical decision making, and treatment plan as noted by the mid-level provider above. I agree with the findings and plan of care. EMMIE KRAMER MD, [facility] Sep 05, 2024 13:20
--- NOTE | 2024-09-05 15:33 | PN ---
INFECTIOUS DISEASE PROGRESS NOTE Date of Service: Sep 05, 2024 SUBJECTIVE: This is a 64 year old male patient who was seen today at bedside in room 412. Patient is awake, alert and oriented x3. Patient is status post left TMA on 08/31/2024. Patient with polymicrobial infection. Will need 4 weeks of IV antibiotics. Being referred to LTAC. We will continue on Zosyn and Zyvox IV. PHYSICAL EXAM EYES: Anicteric. Pupils equal and reactive. HENT: No oral thrush seen, moist Oral mucosa. NECK: Supple, no JVD or thyromegaly. LUNGS: Good air entry. No rales, no rhonchi. CARDIOVASCULAR: S1, S2 regular. No murmur heard. ABDOMEN: Soft, non tender, bowel sounds present, no organomegaly. CENTRAL NERVOUS SYSTEM: Awake, alert, oriented x 3. SKIN: No rashes, no swelling. LYMPHATICS: No peripheral lymphadenopathy MUSCULOSKELETAL: No joint swelling, erythema or tenderness. EXTREMITIES: Dry dressing to left lower extremity. Left TMA. BACK: No deformity, no pressure ulcer. GENITOURINARY: No dysuria or hematuria. Vital Sign (Last 12 Hours) 09/05/24 09/05/24 09/05/24 09/05/24 04:00 08:00 08:00 12:00 Temp 97.9 98.6 98.1 Pulse 79 82 59 Resp 18 17 16 B/P (MAP) 91/52 100/52 98/52 Pulse Ox 96 100 100 100 O2 Delivery Room Air Room Air Room Air* Room Air O2 Flow Rate 0 FiO2 21 21 21 Intake & Output (last 24hrs) 09/04/24 09/04/24 09/05/24 15:00 23:00 07:00 Intake Total 590.0 ml 50.0 ml Output Total 500 ml 350 ml Balance -500 ml 590.0 ml -300.0 ml LABS: Laboratory: Test 09/05/24 11:47 09/05/24 03:10 09/04/24 15:35 09/04/24 04:47 Range/Units Whole Blood Glucose 200 H 70-110 MG/DL White Blood Count 17.7 H 4.8-10.8 K/uL Red Blood Count 2.51 L 4.50-6.20 MIL/uL Hemoglobin 7.5 L 14.0-18.0 g/dL Hematocrit 22.7 L 42-54 % Mean Corpuscular Volume 90.4 79-99 fL Mean Corpuscular Hemoglobin 29.9 27.0-33.0 pg Mean Corpuscular Hemoglobin Concent 33.0 32.0-36.0 g/dL Red Cell Distribution Width 13.0 11.0-15.5 % Platelet Count 292 130-400 K/uL Mean Platelet Volume 9.5 7.5-10.5 fL Nucleated Red Blood Cells 0.0 0.0-0.19 % Sodium Level 135 L 136-145 mmol/L Potassium Level 3.5 3.5-5.1 mmol/L Chloride Level 99 L 101-111 mmol/L Carbon Dioxide Level 26 21-32 mmol/L Blood Urea Nitrogen 19 H 7-18 mg/dL Creatinine 1.4 H 0.5-1.3 mg/dL Glomerular Filtration Rate Calc 55 >90 mL/min Random Glucose 154 H 70-105 mg/dL Total Calcium 7.4 L 8.5-10.1 mg/dL Total Bilirubin 0.5 0.2-1.0 mg/dL Aspartate Amino Transf (AST/SGOT) 13 10-37 U/L Alanine Aminotransferase (ALT/SGPT) 9 L 12-78 U/L Alkaline Phosphatase 60 50-136 U/L Total Protein 5.4 L 6.0-8.3 g/dL Albumin 1.6 L 3.5-5.0 g/dL Prothrombin Time 11.4 9.6-11.6 SEC Prothromb Time International Ratio 1.08 0.85-1.15 Segmented Neutrophils % 86 H 40-70 % Lymphocytes % (Manual) 10 L 22-44 % Monocytes % (Manual) 3 2-9 % Eosinophils % (Manual) 1 1-6 % Differential Comment MANUAL DIFFERENTIAL White Cell Morphology Comment SMUDGE CELLS 1+ Platelet Morphology Comment ADEQUATE Red Blood Cell Morphology HYPOCHROM CELLS 1+ Phosphorus Level 2.3 L 2.5-4.9 mg/dL ASSESSMENT: Left foot diabetic ulcer with polymicrobial infection, possible osteomyelitis, status post transmetatarsal amputation on 08/31/2024. Urinary tract infection with ESBL, E coli and Proteus mirabilis. Proteus mirabilis bacteremia. Chronic kidney disease. Leukocytosis. Diabetes mellitus Peripheral Artery disease PLAN: Continue Zyvox IV. Continue Zosyn. Continue pain management. Continue antidiabetics. Continue wound care. We will monitor renal function. Will need 4 weeks of IV antibiotics. Case management evaluation for referral to LTAC. This case was reviewed and discussed with my supervising physician and the above assessment and plan was formulated and agreed upon. ATTESTATION BY PHYSICIAN I have seen and examined the patient. I reviewed the documentation, medical decision making, and treatment plan as noted by the mid-level provider above. I agree with the findings and plan of care. SUSANNE BETTENCOURT MD, [facility] Sep 05, 2024 15:32
--- NOTE | 2024-09-05 20:15 | NUR ---
URINE OUTPUT Patient urine output level reported for day shift reported to manager commission medical professional. Patient then repositioned himself and output noted as charted. On-call notified with updated output levels. Will continue to monitor.
[2024-09-06] VITALS (7 sets, daily range): BP systolic 95–117; BP diastolic 54–64; PULSE 83–93; RESP 16–20; TEMP 97.7–98.2; O2SAT 98–100
[2024-09-06 05:04] LABS: NUCLEATED RED BLOOD CELLS 0.0 % (0.0-0.19); PLATELET COUNT (AUTO) 269.0 K/uL (130-400); RED BLOOD CELL COUNT(AUTO) 2.68 MIL/uL (4.50-6.20); RED CELL DISTRIBUTION WIDTH 13.2 % (11.0-15.5); WHITE BLOOD COUNT (AUTO) 14.2 K/uL (4.8-10.8)
[2024-09-06 05:23] LABS: ASPARTATE AMINOTRANSFERASE 15.0 U/L (10-37); CREATININE 1.3 mg/dL (0.5-1.3); GLOMERULAR FILTR. RATE CALC 61.0 mL/min (>90); GLUCOSE,RANDOM 166.0 mg/dL (70-105); PHOSPHORUS 2.5 mg/dL (2.5-4.9); SODIUM SERUM 132.0 mmol/L (136-145); TOTAL PROTEIN, SERUM 5.5 g/dL (6.0-8.3); UREA NITROGEN, BLOOD 17.0 mg/dL (7-18)
--- NOTE | 2024-09-06 07:33 | PN ---
SUBJECTIVE: The patient is a very pleasant 64-year-old diabetic male, afebrile at 98.2, pulse 84, respirations 18, blood pressure 105/55. White count 14.2, trending down. H and H 8 and 24.2. Platelets 269. BUN and creatinine 17 and 1.3. Glucose 157. Albumin 1.6. The patient is being followed by Infectious Disease, currently receiving Zyvox and Zosyn for his polymicrobial wound infection. He is being referred to a long-term acute care facility, possibly [facility]. The patient's CTA of his abdominal aorta with runoff suggest high-grade stenosis in the proximal and mid left anterior tibial artery with occlusion distally. REVIEW OF SYSTEMS: CONSTITUTIONAL: Having no chills, no fevers, no night sweats. No nausea, no vomiting, no diarrhea. HEENT: No problems with eyes, ears, nose, or throat. CARDIOVASCULAR: He has left lower extremity peripheral vascular disease, being followed by cardiology. They have no plan for revascularization procedure at this point. RESPIRATORY: No shortness of breath. GENITOURINARY: The patient is being followed for a urinary tract infection with E. coli and proteus mirabilis. Renal function, being followed by nephrology. GASTROINTESTINAL: No dysphagia. PSYCHIATRIC: Denied any depression. MUSCULOSKELETAL: Transmetatarsal amputation on the left. [id number] amputation on the right. INTEGUMENTARY: Incision site coapted and drain in place. OBJECTIVE: On examination today shows the incision site is coapted. Drain is in place. Flap is warm. Capillary refill is intact to the left foot. No necrosis. No dehiscence. ASSESSMENT: Status post transmetatarsal amputation on the left, peripheral vascular disease, low albumin, polymicrobial wound infection, polymicrobial urinary tract infection, receiving Zyvox and Zosyn. The patient has been evaluated for LTAC placement for IV antibiotic therapy and local wound care. The patient's leukocytosis is improving. Peripheral vascular disease is being followed by Cardiology. No plans for revascularization procedure at this point. PLAN: Continue with Betadine dressings, offloading measures, IV Zyvox and IV Zosyn per Infectious Disease. The patient is being followed by Cardiology Service. Continue with off-loading measures to the left foot. Continue with physical therapy. The patient does not have a prosthetic limb for his right side for the [id number] amputation site. We will continue to follow the patient closely while in-house. Anticipate transfer to a long-term acute care facility for continuation of IV antibiotics and local wound care and physical therapy support. TID: [id number] RECEIPT: [id number]
[2024-09-06] MEDS ORDERED: PoTASSium chl 10% ELIXIR 20MEQ 20 MEQ/15 ML UDCUP PO PRN (08:00)
[2024-09-06] MEDS: PoTASSium chloRIDE 20MEQ ER 20 MEQ ERTAB PO PRN (11:52)
--- NOTE | 2024-09-06 13:02 | PN ---
NEPHROLOGY PROGRESS NOTE Date/Time Patient Seen: Sep 06, 2024 SUBJECTIVE: This is a 63-year-old male with underlying history of poorly controlled type 2 diabetes mellitus, peripheral arterial disease, prior history of right [id number] amputation in 2020 due to right foot gangrene and necrotizing fasciitis. He presented to emergency room for evaluation of left foot wounds. S/p left TMA by Dr. Lim He continues to be followed by Cardiology, pending recommendations He was noted to have worsening elevated BUN/creatinine We have been consulted for renal failure. Renal function and electrolytes are stable Hemoglobin has remained stable Renal ultrasound showed normal kidneys with no hydronephrosis. He continues on antibiotics as per ID Blood cultures are positive for Proteus mirabilis He continues to be followed by Podiatry Case management coordinating LTAC placement He was seen in the medical floor, in no acute distress Prognosis remains guarded REVIEW OF SYSTEMS: GENERAL: Positive for left foot wound. NEUROLOGIC: Negative for any blurry vision, blind spots, double vision, facial asymmetry, dysphagia, dysarthria, hemiparesis, hemisensory deficits, vertigo, ataxia. HEENT: Negative for any head trauma, neck trauma, neck stiffness, photophobia, phonophobia, sinusitis, rhinitis. CARDIAC: Negative for any chest pain, dyspnea on exertion, paroxysmal nocturnal dyspnea, peripheral edema. PULMONARY: Negative for any shortness of breath, wheezing, COPD, or TB exposure. GASTROINTESTINAL: Negative for any abdominal pain, nausea, vomiting, bright red blood per rectum, melena. GENITOURINARY: Negative for any dysuria, hematuria, incontinence. INTEGUMENTARY: Negative for any rashes, cuts, insect bites. RHEUMATOLOGIC: Negative for any joint pains, photosensitive rashes, history of vasculitis or kidney problems. HEMATOLOGIC: Negative for any abnormal bruising, frequent infections or bleeding. Vital Signs (last 8hr) Date Time Temp Pulse Resp B/P (MAP) Pulse Ox O2 Delivery O2 Flow Rate FiO2 09/06/24 11:52 97.7 86 19 95/54 97 Room Air 21 09/06/24 08:00 97.9 90 16 96/59 100 Room Air 09/06/24 08:00 100 Room Air* 0 21 PHYSICAL EXAM: GENERAL: Alert and oriented x 3. No acute distress. Well-nourished. EYES: EOMI. Anicteric. HENT: Moist mucous membranes. No scleral icterus. No cervical lymphadenopathy. LUNGS: Clear to auscultation bilaterally. No accessory muscle use. CARDIOVASCULAR: Regular rate and rhythm. No murmur. No JVD. ABDOMEN: Soft, non-tender and non-distended. No palpable masses. EXTREMITIES: No edema. Non-tender. Right BKA, left TMA SKIN: No rashes or lesions. Warm. NEUROLOGIC: No focal neurological deficits. CN II-XII grossly intact, but not individually tested. PSYCHIATRIC: Cooperative. Appropriate mood and affect. Current Medications Medications (Trade) Dose Ordered Sig/Nathaly Route Start Time Stop Time Status Last Admin Dose Admin Betamethasone Valerate (Betamethasone Valerate) 1 APPLICATION TID TP 09/01/24 14:00 10/01/24 13:59 Cancel Clopidogrel Bisulfate (plaVIX 75MG) 75 mg DAILY PO 09/02/24 09:00 10/02/24 08:59 Insulin Human Regular (humuLIN R 100 UNIT/ML 3ML) INSULIN SLIDING SCAL... ACHS SQ 08/30/24 21:00 09/29/24 20:59 09/01/24 16:50 3 UNIT Linezolid 300 ml @ 150 mls/hr Q12H IV 08/30/24 18:00 08/30/24 17:37 DC Linezolid 300 ml @ 150 mls/hr Q12H IV 08/30/24 20:00 09/09/24 19:59 09/02/24 09:34 150 MLS/HR Pharmacy Profile Note (Pharmacy Communication) 1 each ONCE MISC 08/30/24 17:30 09/01/24 07:16 DC 08/30/24 17:56 1 EACH Piperacillin Sod/ Tazobactam Sod (Zosyn 3.375gm+NS 50ml) 3.375 gm Q12H IVPB 08/30/24 21:00 08/31/24 06:42 DC 08/30/24 23:06 3.375 GM Piperacillin Sod/ Tazobactam Sod (Zosyn 3.375gm+NS 50ml) 3.375 gm Q8H IVPB 08/31/24 07:00 09/09/24 20:59 09/02/24 05:21 3.375 GM Sodium Chloride 1,000 ml @ 75 mls/hr [id number] IV 08/30/24 20:00 09/01/24 12:55 DC 08/31/24 22:29 75 MLS/HR Thiamine HCl (Vitamin B-1) 100 mg Q24H IVP 08/30/24 18:00 09/01/24 16:47 DC 08/31/24 18:33 100 MG Thiamine HCl (Vitamin B-1) 100 mg Q24H IVP 09/01/24 20:00 10/01/24 19:59 09/01/24 19:55 100 MG Vitamin B Complex/ Vit C/Folic Acid (Nephrovite Tablet) 1 cap DAILY PO 09/01/24 09:00 10/01/24 08:59 09/02/24 09:34 1 CAP LABORATORY: [ ] Hematology Labs: Test 09/06/24 04:51 Range/Units White Blood Count 14.2 H 4.8-10.8 K/uL Red Blood Count 2.68 L 4.50-6.20 MIL/uL Hemoglobin 8.0 L 14.0-18.0 g/dL Hematocrit 24.2 L 42-54 % Mean Corpuscular Volume 90.3 79-99 fL Mean Corpuscular Hemoglobin 29.9 27.0-33.0 pg Mean Corpuscular Hemoglobin Concent 33.1 32.0-36.0 g/dL Red Cell Distribution Width 13.2 11.0-15.5 % Platelet Count 269 130-400 K/uL Mean Platelet Volume 9.3 7.5-10.5 fL Nucleated Red Blood Cells 0.0 0.0-0.19 % Chemistry Labs: Test 09/06/24 11:18 09/06/24 04:51 Range/Units Whole Blood Glucose 183 H 70-110 MG/DL Bedside Glucose Comment Notified Nurse Sodium Level 132 L 136-145 mmol/L Potassium Level 3.6 3.5-5.1 mmol/L Chloride Level 98 L 101-111 mmol/L Carbon Dioxide Level 26 21-32 mmol/L Blood Urea Nitrogen 17 7-18 mg/dL Creatinine 1.3 0.5-1.3 mg/dL Glomerular Filtration Rate Calc 61 >90 mL/min Random Glucose 166 H 70-105 mg/dL Total Calcium 7.8 L 8.5-10.1 mg/dL Phosphorus Level 2.5 2.5-4.9 mg/dL Magnesium Level 1.90 1.80-2.40 mg/dL Total Bilirubin 0.5 0.2-1.0 mg/dL Aspartate Amino Transf (AST/SGOT) 15 10-37 U/L Alanine Aminotransferase (ALT/SGPT) 10 L 12-78 U/L Alkaline Phosphatase 62 50-136 U/L Total Protein 5.5 L 6.0-8.3 g/dL Albumin 1.6 L 3.5-5.0 g/dL Coagulation Labs: Test 09/04/24 15:35 Range/Units Prothrombin Time 11.4 9.6-11.6 SEC Prothromb Time International Ratio 1.08 0.85-1.15 DIAGNOSTICS / RADIOLOGY: PATIENT: CHADD MAGDALENO MR#: [id number] : 1960 SEX: M AGE: 64 LOCATION: 4BH ORDER 48 STATUS: ADM IN REPORT#: [id number] SERVICE 47 REASON: CONFIRM PICC LINE PLACEMENT ORDERING PHYSICIAN: BRAULIO BRIDGES MD PROCEDURE: CXR1VW - CHEST 1VW EXAM: CR Chest, 1 view CLINICAL HISTORY: Line placement. COMPARISON: CT chest dated 09/02/2024. FINDINGS: The right PICC line tip overlies the superior cavoatrial junction. The lungs show no infiltrates or other acute findings. No pleural effusion or pneumothorax. The cardiomediastinal silhouette is within normal limits. No acute osseous abnormality. IMPRESSION: The right PICC line tip overlies the superior cavoatrial junction. No acute cardiopulmonary process is evident. No adverse interval changes. /[place] DICTATED BY: GISEL CHACON Jr., MD DATE: 09/05/2424 ELECTRONICALLY SIGNED BY: GISEL CHACON Jr., MD DATE: 09/05/2424 PATIENT: CHADD MAGDALENO MR#: [id number] : 1960 SEX: M AGE: 64 LOCATION: 4BH ORDER 1020 STATUS: ADM IN REPORT#: [id number] SERVICE 1018 REASON: PAD; with LEFT lower extremity runoff ORDERING PHYSICIAN: KANIKA CROFT PROCEDURE: CTA ABDAOR - CT ANGIO ABD AORTA W RUNOFF EXAM: CTA bilateral Lower Extremities with Intravenous Contrast. CLINICAL HISTORY: Amputation of the right lower limb. TECHNIQUE: Axial CTA images of the bilateral Lower Extremities performed with intravenous contrast in the arterial phase with coronal and sagittal reformatted images generated and reviewed. 3-D reformatted images generated on an independent workstation and also reviewed. CONTRAST: Yes. COMPARISON: None provided. FINDINGS: Aorta: Atherosclerosis in the aorta with multiple calcified and non-calcified plaques at the origin of coeiliac axis, superior mesenteric artery and in the aortic neves without any flow limiting stenosis. VASCULATURE: Common Femoral Artery: Mild circumferential wall thickening with small calcified and non-calcified plaques on both sides without any flow limiting stenosis. Superficial Femoral Artery: Circumferential wall thickening with calcified plaques causing focal areas of luminal narrowing by approximately 20-30% on both sides. There is a focal area of luminal narrowing by approximately 60-70% in the lower one-thirds of the right superficial femoral artery. Deep Femoral Artery: No acute finding. No occlusion, rupture, aneurysm or dissection. Popliteal and Calf Arteries: There is circumferential calcifications in the bilateral popliteal and anterior and posterior tibial arteries with complete occlusion of the right popliteal artery and the right anterior and posterior tibial arteries. The left popliteal artery shows no significant luminal compromise. There is attenuated contrast opacification in the upper and mid segments of left anterior tibial artery with occlusion distally. Soft tissues: Unremarkable. Bones: Status post right below the knee amputation. No acute osseous abnormality. IMPRESSION: 1. Atherosclerosis in the aorta and in arteries of bilateral lower limb with complete occlusion of the right popliteal and proximal right anterior and posterior tibial arteries. Status post right below the knee amputation. 2. High-grade stenosis in the proximal and mid left anterior tibial artery with occlusion distally. 3. No abdominal aortic aneurysm or dissection. /[place] DICTATED BY: PATRICIA LAWSON MD DATE: 09/04/24647 ELECTRONICALLY SIGNED BY: PATRICIA LAWSON MD DATE: 09/04/2448 PATIENT: CHADD MAGDALENO MR#: [id number] : 1960 SEX: M AGE: 64 LOCATION: 2DH ORDER 1245 STATUS: ADM IN REPORT#: [id number] SERVICE 1227 REASON: cad,chf ORDERING PHYSICIAN: CHARIS OROSCO MD PROCEDURE: ECHO CMP - ECHO 2-D COMPLETE APPROVED REPORT EXAM: Two-dimensional and M-mode echocardiogram with Doppler and color Doppler. Study Details: Munir M , PATO INDICATION ICD: CAD , chf 2D Dimensions RVDd 3.4 cm LVEF(%) 70.2 (>50%) LVED Vol(simp.) 86.7 mL IVSd 0.9 (0.7-1.1cm) FS(%) 40 % LVES Vol(simp.) 38.5 mL LVDd 4.6 (3.8-5.6cm) LA (2D) 2.8 (1.6-4.0cm) LVEF(%, simp.) 56 % PWd 0.8 (0.7-1.1cm) Ao Root(2D) 3.3 (2.0-3.7cm) LA ESV INDEX (4CH) 21.00 mL/m2 IVSs 1.1 cm LVOT diam 2.0 (1.8-2.4cm) LA ESV INDEX (2CH) 15.31 mL/m2 LVDs 2.8 (2.5-4.0cm) LA ESV INDEX (BP) 15.38 mL/m2 PWs 1.2 cm Deformation Strain Apical 4 16.8 % Apical 2 13.2 % Apical 3 15.0 % Global Strain 15.0 % M-Mode Dimensions EPSS 1.8 cm LA (MM) 3.4 (1.6-4.0cm) Ao Root(MM) 3.4 (2.0-3.7cm) Aortic Valve AoV Vmax 0.9 m/s Ao Peak GR 3.2 mmHg LVOT Vmax 0.8 m/s AoV VTI 0.2 m Ao Mean GR 1.7 mmHg LVOT VTI 0.15 m CAITLIN (VMAX) 3.04 cm2 CAITLIN (VTI) 3.1 cm2 Mitral Valve MV E Vmax 61.6 cm/s DECEL Time 244 ms MV A Vmax 95.3 cm/s E/A ratio 0.6 TDI E/E' Medial 10.5 E/E' Lateral 6.4 Medial E' Peak V 5.86 cm/s Lateral E' Peak V 9.56 cm/s Pulmonary Valve PV Vmax 0.9 m/s PV VTI 0.18 m PV Mean GR 2.0 mmHg PV Peak GR 3.5 mmHg Left Ventricle The left ventricle is normal size. There is normal LV segmental wall motion. There is normal left ventricular wall thickness. LVEF is 50-55%. Stage I diastolic dysfunction. Right Ventricle The right ventricle is normal size. The right ventricular systolic function is normal. Atria The left atrium size is normal. The interatrial septum is intact with no evidence for an atrial septal defect. The right atrium size is normal. Aortic Valve Aortic valve NCC leaflets mild calcified. Trace aortic regurgitation. There is no aortic valvular stenosis. Mitral Valve The mitral valve is mildly thickened. Mild posterior mitral annular calcification present. There is no evidence of significant mitral regurgitation. There is no mitral valve stenosis. Tricuspid Valve The tricuspid valve is normal in structure. There is no tricuspid valve regurgitation noted. Pulmonic Valve Pulmonic valve is not well visualized. There is trace pulmonic valvular r egurgitation. Great Vessels The aortic root is normal in size. The ascending aorta is normal in size. IVC is not well visualized. Pericardium not visualized Conclusion LVEF is 50-55%. Stage I diastolic dysfunction. There is normal LV segmental wall motion. Aortic valve NCC leaflets mild calcified. Trace aortic regurgitation. The mitral valve is mildly thickened. Mild posterior mitral annular calcification present. DICTATED BY: CHARIS OROSCO MD DATE: 09/01/24 1114 ELECTRONICALLY SIGNED BY: CHARIS OROSCO MD DATE: 09/01/24 1417 PATIENT: CHADD MAGDALENO MR#: [id number] : 1960 SEX: M AGE: 63 LOCATION: ED[facility]IP ORDER 1737 STATUS: ADM IN REPORT#: [id number] SERVICE 34 REASON: rule out any significant lung infiltrates, sepsis, foot infection ORDERING PHYSICIAN: BRAULIO BRIDGES MD PROCEDURE: CXR1VW - CHEST 1VW EXAM: CR Chest, 1 View. CLINICAL HISTORY: rule out any significant lung infiltrates, sepsis, foot infection COMPARISON: 05/02/2017 FINDINGS: LUNGS: There is no mass, infiltrate, or acute pulmonary abnormality. PLEURAL SPACES: No pleural effusion or pneumothorax. MEDIASTINUM: Cardiac size and mediastinal contours within normal limits. BONES: No aggressive appearing osseous lesion seen. IMPRESSION: No acute cardiopulmonary pathology is evident. /[place] DICTATED BY: PATRICIA LAWSON MD DATE: 08/30/242003 REASON: acute renal failure, uncontrolled DM II ORDERING PHYSICIAN: BRAULIO BRIDGES MD PROCEDURE: RENAL - US RENAL SONOGRAM EXAMINATION: Renal ultrasound. COMPARISON: None provided. HISTORY: acute renal failure, uncontrolled DM II FINDINGS: The right kidney measures 9.9 cm and is normal in echotexture. The left kidney measures 9.2 cm and is normal in echotexture. There are no focal renal lesions. There are no renal stones. There is no hydronephrosis. There is mild debris noted in the urinary bladder. Cystitis should be excluded. IMPRESSION: Normal kidneys. No hydronephrosis Mild debris noted in the urinary bladder. Cystitis should be excluded. /[place] DICTATED BY: PATRICIA LAWSON MD DATE: 08/30/242022 PATIENT: CHADD MAGDALENO MR#: [id number] : 1960 SEX: M AGE: 63 LOCATION: [facility] ORDER 23 STATUS: ADM IN REPORT#: [id number] SERVICE 171 REASON: non healing left foot wound with necrotic toes, assess for severe PAD ORDERING PHYSICIAN: BRAULIO BRIDGES MD PROCEDURE: ART B LE - US ARTERIAL BILAT LOW EXT DUPL EXAMINATION: DUPLEX ULTRASOUND EXAMINATION OF THE BILATERAL LOWER EXTREMITY ARTERIES. CLINICAL HISTORY: Non-healing wound in the left, to assess for peripheral arterial disease. COMPARISON: Lower extremity arterial doppler dated 12/29/2020. FINDINGS: Peak systolic velocities within the right lower arteries are as follows: Common femoral artery: 56 cm/s. Superficial femoral artery: 55 cm/s at proximal, 71 cm/s at mid, and 50 cm/s at distal segments. Popliteal artery: 28 cm/s at proximal and 37 cm/s at distal segments. The right lower limb arteries demonstrate biphasic waveforms in all arteries. The below knee arteries are not assessed, post amputation status. Peak systolic velocities within the left lower arteries are as follows: Common femoral artery: 66 cm/s. Superficial femoral artery: 71 cm/s at proximal, 72 cm/s at mid, and 72 cm/s at distal segments. Popliteal artery: 56 cm/s at proximal and 55 cm/s at distal segments. Posterior tibial artery: 30 cm/s. Anterior tibial artery: 47 cm/s. Dorsalis pedis artery: 67 cm/s. The left lower limb arteries demonstrate biphasic waveforms in all arteries other than posterior tibial, anterior tibial, and dorsalis pedis arteries which demonstrate monophasic waveforms. There is intimal wall thickening in both lower limb arteries. IMPRESSION: Mild intimal wall thickening in both the lower limb arteries. Both lower limb arteries demonstrate biphasic waveforms in all arteries other than left posterior tibial, anterior tibial, and dorsalis pedis arteries which demonstrate monophasic waveforms. No flow limiting lesions. /[place] DICTATED BY: PATRICIA LAWSON MD DATE: 08/30/242034 PATIENT: CHADD MAGDALENO MR#: [id number] : 1960 SEX: M AGE: 63 LOCATION: ED[facility] ORDER 1501 STATUS: ADM IN REPORT#: [id number] SERVICE 1500 REASON: SEPSIS ORDERING PHYSICIAN: IVON UNDERWOOD MD PROCEDURE: FT 3VW LT - FOOT COMP 3+VWS LT EXAM: CR Left foot, 3 View. CLINICAL HISTORY: SEPSIS COMPARISON: Comparison: Radiograph dated September 21, 2016 Findings: AP, oblique, lateral views of the left foot are submitted. Interval amputation of the great toe from the distal metatarsal. There is edema and subcutaneous emphysema within the soft tissues overlying the first metatarsal. Presumed interval amputation of the second toe from the mid to distal second proximal phalanx and of the third toe from the distal interphalangeal joint. Clinical correlation is advised. There is suggestion of bone loss and cortical irregularities seen within the mid diaphyses of the 3rd and 4th proximal phalanxes. Findings may reflect osteomyelitis. Recommend contrast-enhanced MRI of the midfoot/forefoot for further evaluation. IMPRESSION: 1. Status post interval amputation of great toe, second toe, and third toe with soft tissue edema and subcutaneous emphysema overlying the first metatarsal. 2. Possible osteomyelitis of 3rd and 4th proximal phalanxes. Recommend MRI of the midfoot/forefoot for further evaluation. /[place] DICTATED BY: GISEL CHACON Jr., MD DATE: 08/30/241855 ASSESSMENT: Acute renal failure Acute rhabdomyolysis Anemia Hyponatremia Sepsis Blood culture positive for Gram-negative rods Gas/wet gangrene of the left foot with extensively necrotic toes and underlying acute osteo-myelitis of multiple toe Poorly controlled type 2 diabetes mellitus Significant leukocytosis secondary to underlying septicemia PLAN: Labs, diagnostic, radiologic exams reviewed and interpreted by myself and supervising physician. We have reviewed external records in detail Case management coordinating LTAC placement Follow up Podiatry recommendations 1.5 Fluid restriction is advised Require close monitoring of renal function and electrolytes Order CBC, CMP, and electrolytes in am Continue with antibiotics as per ID BiPAP as necessary, for respiratory distress Monitor blood pressure adjust medication doses as needed Avoid hypotensive episodes May use Dilaudid 0.5 mg IV every 6 hours as needed for severe pain Monitor blood sugars Strict intake, output, and daily weight should be monitored Please renally adjust medications Avoid nephrotoxic and nonsteroidal drugs Avoid contrast if possible Will continue to monitor renal function, anemia, electrolytes Treatment plan discussed with patient Questions were answered We have discussed with the other team physicians in detail about the care plan We will continue to monitor the patient closely ATTESTATION BY PHYSICIAN I have seen and examined the patient. I reviewed the documentation, medical decision making, and treatment plan as noted by the mid-level provider above. I agree with the findings and plan of care. EMMIE KRAMER MD, [facility] Sep 06, 2024 13:02
--- NOTE | 2024-09-06 15:06 | PN ---
[facility] PROGRESS NOTE Date of Service: Sep 06, 2024 Time of Service: 15:03 SUBJECTIVE: This is a 63-year-old male with underlying history of poorly controlled type 2 diabetes mellitus, peripheral arterial disease, prior history of right [id number] amputation in 2020 due to right foot gangrene and necrotizing fasciitis. Patient presented to the emergency room August 30, 2024, with a chronic wounds involving toes to the foot, that according to him over the last several weeks has been getting more necrotic and foul smelling. He also reported having fever and chills. On presentation to the hospital, patient was noted to be febrile with T-max of 100.0 F, heart rate of 102, blood pressure of 81/50. [place] [address], hemoglobin of 10.3, platelet count of 637450. BMP remarkable for sodium of 125, potassium 5.1, chloride of 90, BUN of 52, creatinine 2.0, blood glucose of 180, CK of 436 cardiac panel showed troponin of six. Patient admitted for further treatment and management of wet gangrene of the right foot with suspected chronic osteomyelitis of the toes. Patient received IV fluids and IV antibiotics. Consultation with Podiatry, Infectious Disease requested. 08/31 patient remains admitted to the PCU, BP 130/63, afebrile, saturating normal on room air. Leukocytosis improving, today WBC 14.9. Creatinine better at 1.6. Results of blood culture Gram-negative rods, positive in two of two sets. X- ray of the left foot status post interval amputation great toe, 2nd toe, 3rd toe with soft tissue edema subcutaneous emphysema overlying the 1st metatarsal, poss ible osteomyelitis of the 3rd and 4th proximal phalanx. Arterial ultrasound mild intimal wall thickening in both lower limb arteries, both lower limb arteries demonstrate biphasic waveform in all arteries other family left posterior tibial, anterior tibial and dorsalis pedis which demonstrate monophasic waveform, no flow-limiting stenosis. Renal ultrasound normal kidney s, no hydronephrosis, mild debris is noted in the urinary bladder, cystitis should be excluded. Patient on broad-spectrum IV antibiotics with Zosyn and linezolid, ID and podiatry consulted, input noted and appreciated. Cardiology consultation requested as the patient with peripheral arterial disease. We will follow input and recommendation. Renal ultrasound normal, no hydronephrosis, creatinine improving, nephrology consulted, we will follow input and recommendation. During my visit the patient is comfortable, back in the room from having debridement, eating lunch, tolerating well, getting good pain control with curr ent medical management, at bedside, updated. 09/01 Patient presented to the emergency room August 30, 2024, with a chronic wounds involving toes to the left foot. X-ray of the left foot status post interval amputation great toe, 2nd toe, 3rd toe with soft tissue edema subcutaneous emphysema overlying the 1st metatarsal, possible osteomyelitis of the 3rd and 4th proximal phalanx. Patient is status post transmetatarsal amputation the left foot 08/31/24. Tolerated the procedure well. Results of blood culture positive for Proteus mirabilis. Urine culture [id number] CFU, identification and susceptibility process. Patient Zosyn IV, continue to follow podiatry and ID input and recommendation. During my visit the patient is comfortable, eating lunch, tolerating well, alert oriented x3, getting IV antibiotics, denied chest pain, shortness shortness for breath, no nausea, no vomiting, getting good pain control with current medical management, plan of care discussed with the patient and the at bedside, all questions answered. Agreed and understood all the information provided. 09/02 Patient presented to the emergency room August 30, 2024, with a chronic wounds involving toes to the left foot. X-ray of the left foot status post interval amputation great toe, 2nd toe, 3rd toe with soft tissue edema subcutaneous emphysema overlying the 1st metatarsal, possible osteomyelitis of the 3rd and 4th proximal phalanx. Patient is status post transmetatarsal amputation the left foot 08/31/24. Tolerated the procedure well. Results of blood culture positive for Proteus mirabilis. Wound culture from the left foot positive for Proteus mirabilis, urine culture positive for E coli and Proteus mirabilis. Patient remains on broad-spectrum IV antibiotics with Zosyn until systolic IV, continue to follow podiatry and ID input and recommendation, continue local wound care. Consider correction facility versus [facility] for continuation of medical care. During my visit the patient remains comfortably in bed, alert oriented x3, case discussed with the RN, no acute events overnight, plan to downgraded to the medical floor. 09/03 Seen and examined. Vitals are stable. White count is 16.5, H&H 8.3/25.3, CMP is stable. S/p TMA of Left foot with partial medial cuneiformectomy, transfer of the extensor hallucis longus to the flexor hallucis longus tendon, complex layered primary wound closure of a highly modified 22cm surgical incision by Dr. Lim on 08/31/24. Initial blood cultures are growing Proteus mirabilis, repeat blood cultures negative so far, intraoperative cultures positive for Proteus mirabilis and Staphylococcus aureus. Urine cultures growing ESBL E coli and Proteus mirabilis. CT angio results are pending. No incidences reported overnight. 09/04 The patient was seen and examined in the room this morning. He is alert oriented x3. denies pain at this time. Patient is postop day 4. S/P transmetatarsal amputation of the left foot with partial medial cuneiform anti and tendon transfer performed by Dr. Lim. He continues with IV antibiotics. Wound care being managed by Dr. Lim. 09/05 Today on bedside evaluation patient was found awake alert and oriented x 3. The power chart reviewed, vital signs, laboratory tests, imaging test and medications have been reviewed. Latest vitals are stable, white count is elevated at 73.7, H&H 7.5/22.7, renal function remains slightly elevated BUN at 19, creatinine 1.4. Case management is coordinating for LTAC placement. 09/06 Seen and examined. Vital signs are stable, afebrile. White count is downtrending now at 14.2, H&H improving 8/24.2, CMP is stable. No incidences reported overnight. Pending LTAC placement. REVIEW OF SYSTEMS CONSTITUTIONAL: fevers, chills, malaise, poor oral intake NEUROLOGICAL: Denies headache, amaurosis fugax, motor weakness, sensory deficit, vertigo/spinning sensation, gait abnormalities, or tremors. ENT: No hearing loss, otalgia, otorrhea, rhinitis, rhinorrhea, hoarseness, or sore throat. CARDIOVASCULAR: Denies any exertional angina, dyspnea on exertion, orthopnea, paroxysmal nocturnal dyspnea, palpitations, life-threatening arrhythmias, claudication. PULMONARY: Denies any shortness of breath, cough, phlegm/sputum, hemoptysis, pleuritic chest pain. SLEEP: Denies morning headaches, daytime somnolence or napping. Denies difficulty falling asleep, staying asleep, waking from sleep. Denies knowledge of snoring. GASTROINTESTINAL: Denies any type of dysphagia to either liquids or solids. Denies nausea, vomiting, pyrosis, early satiety, abdominal pain, diarrhea, constipation, or changes in stool consistency or caliber. Denies coffee-ground emesis, hematemesis, hematochezia, or melanotic stools. GENITOURINARY: Denies frequency, urgency, nocturia, hematuria or incontinence (Storage/Irritative symptoms.) Low urinary stream, straining to void, urinary intermittency or hesitancy, splitting of the voiding stream, terminal dribbling. ENDOCRINOLOGIC: Hx of type 2 Diabetes mellitus HEMATOLOGIC: Denies thrombophilia/previous clots, or coagulopathy/bleeding disorders. ONCOLOGIC: Denies personal history of malignancy. DERMATOLOGIC: foul smelling necrotic toes of the left foot with non healing wounds PSYCHIATRIC: Denies any suicidal or homicidal ideation. Denies hallucinations. PHYSICAL EXAM GENERAL APPEARANCE: The patient is awake, alert, and oriented, in no acute cardiopulmonary distress. NEUROLOGICAL: Cranial nerves II-XII grossly intact. Motor is 5/5 in bilateral upper and lower extremities proximal to distal. No sensory deficits. HEENT: Face is symmetric. Pupils are equal and reactive. Extraocular movements are intact. NECK: Supple. No JVD. No thyromegaly. No submental, submandibular, pre- /postauricular, occipital or supraclavicular lymphadenopathy. CHEST: Normal chest expansion. No Telemetry. LUNGS: Absence of any rales, rhonchi or any wheezing. CARDIOVASCULAR: Regular. S1 and S2 normal. No appreciable rubs, murmurs or gallops. ABDOMEN: Soft, nontender, and nondistended. There is no rebound, voluntary guarding, or rigidity. : Deferred. No Sandhu. EXTREMITIES: Left foot noted to have extremely foul-smelling wound with necrotic toes noted from 2nd two fifth digit, area of erythema and surrounding cellulitic changes noted Vital Signs (last 8hr) Date Time Temp Pulse Resp B/P (MAP) Pulse Ox O2 Delivery O2 Flow Rate FiO2 09/06/24 11:52 97.7 86 19 95/54 97 Room Air 21 09/06/24 08:00 97.9 90 16 96/59 100 Room Air 09/06/24 08:00 100 Room Air* 0 21 LABS: Laboratory: Test 09/06/24 11:18 09/06/24 04:51 09/04/24 15:35 Range/Units Whole Blood Glucose 183 H 70-110 MG/DL Bedside Glucose Comment Notified Nurse White Blood Count 14.2 H 4.8-10.8 K/uL Red Blood Count 2.68 L 4.50-6.20 MIL/uL Hemoglobin 8.0 L 14.0-18.0 g/dL Hematocrit 24.2 L 42-54 % Mean Corpuscular Volume 90.3 79-99 fL Mean Corpuscular Hemoglobin 29.9 27.0-33.0 pg Mean Corpuscular Hemoglobin Concent 33.1 32.0-36.0 g/dL Red Cell Distribution Width 13.2 11.0-15.5 % Platelet Count 269 130-400 K/uL Mean Platelet Volume 9.3 7.5-10.5 fL Nucleated Red Blood Cells 0.0 0.0-0.19 % Sodium Level 132 L 136-145 mmol/L Potassium Level 3.6 3.5-5.1 mmol/L Chloride Level 98 L 101-111 mmol/L Carbon Dioxide Level 26 21-32 mmol/L Blood Urea Nitrogen 17 7-18 mg/dL Creatinine 1.3 0.5-1.3 mg/dL Glomerular Filtration Rate Calc 61 >90 mL/min Random Glucose 166 H 70-105 mg/dL Total Calcium 7.8 L 8.5-10.1 mg/dL Phosphorus Level 2.5 2.5-4.9 mg/dL Magnesium Level 1.90 1.80-2.40 mg/dL Total Bilirubin 0.5 0.2-1.0 mg/dL Aspartate Amino Transf (AST/SGOT) 15 10-37 U/L Alanine Aminotransferase (ALT/SGPT) 10 L 12-78 U/L Alkaline Phosphatase 62 50-136 U/L Total Protein 5.5 L 6.0-8.3 g/dL Albumin 1.6 L 3.5-5.0 g/dL Prothrombin Time 11.4 9.6-11.6 SEC Prothromb Time International Ratio 1.08 0.85-1.15 Current Medications Medications (Trade) Dose Ordered Sig/Nathaly Route PRN Reason Start Time Stop Time Status Last Admin Dose Admin Acetaminophen (TYLenol 325MG TAB) 650 mg Q6H PRN PO MILD PAIN (1-3) 08/30/24 17:30 09/29/24 17:29 Betamethasone Valerate (Betamethasone Valerate) 1 APPLICATION TID TP 09/01/24 14:00 10/01/24 13:59 Cancel Clopidogrel Bisulfate (plaVIX 75MG) 75 mg DAILY PO 09/02/24 09:00 10/02/24 08:59 09/06/24 07:39 75 MG Dextrose (D50w) 50 ml AD PRN IV HYPOGLYCEMIA PROTOCOL 08/30/24 18:00 09/29/24 17:59 Glucagon (Glucagon 1mg Kit) 1 mg AD PRN IM HYPOGLYCEMIA PROTOCOL 08/30/24 18:00 09/29/24 17:59 Hydromorphone HCl (DiLAUDid 0.5MG INJ) 0.2 mg Q6H PRN IVP SEVERE PAIN (7-10) 08/30/24 17:30 09/04/24 17:29 DC Insulin Human Regular (humuLIN R 100 UNIT/ML 3ML) INSULIN SLIDING SCAL... ACHS SQ 08/30/24 21:00 09/29/24 20:59 09/06/24 11:58 2 UNIT Linezolid 300 ml @ 150 mls/hr Q12H IV 08/30/24 18:00 08/30/24 17:37 DC Linezolid 300 ml @ 150 mls/hr Q12H IV 08/30/24 20:00 09/09/24 19:59 09/06/24 07:39 150 MLS/HR Ondansetron HCl (zoFRAN 4MG INJ) 4 mg Q6H PRN IVP NAUSEA/VOMITING 08/30/24 17:30 09/29/24 17:29 Pharmacy Profile Note (Pharmacy Communication) 1 each ONCE MISC 08/30/24 17:30 09/01/24 07:16 DC 08/30/24 17:56 1 EACH Piperacillin Sod/ Tazobactam Sod (Zosyn 3.375gm+NS 50ml) 3.375 gm Q12H IVPB 08/30/24 21:00 08/31/24 06:42 DC 08/30/24 23:06 3.375 GM Piperacillin Sod/ Tazobactam Sod (Zosyn 3.375gm+NS 50ml) 3.375 gm Q8H IVPB 08/31/24 07:00 09/09/24 20:59 09/06/24 07:00 3.375 GM Potassium Chloride 100 ml @ 100 mls/hr AD PRN IV POTASSIUM PROTOCOL 09/06/24 08:00 10/06/24 07:59 Potassium Chloride (K-Dur/Klor-Con 20meq) 20 meq AD PRN PO POTASSIUM PROTOCOL 09/06/24 08:00 10/06/24 07:59 09/06/24 11:52 20 MEQ Potassium Chloride (KCl 10% Elixir 20meq/15ml) 20 meq AD PRN PO POTASSIUM PROTOCOL 09/06/24 08:00 10/06/24 07:59 Sodium Chloride 1,000 ml @ 75 mls/hr [id number] IV 08/30/24 20:00 09/01/24 12:55 DC 08/31/24 22:29 75 MLS/HR Thiamine HCl (Vitamin B-1) 100 mg Q24H IVP 08/30/24 18:00 09/01/24 16:47 DC 08/31/24 18:33 100 MG Thiamine HCl (Vitamin B-1) 100 mg Q24H IVP 09/01/24 20:00 10/01/24 19:59 09/05/24 23:27 100 MG Vitamin B Complex/ Vit C/Folic Acid (Nephrovite Tablet) 1 cap DAILY PO 09/01/24 09:00 10/01/24 08:59 09/06/24 07:39 1 CAP DIAGNOSTICS / RADIOLOGY: [ ] ASSESSMENT: Gas/wet gangrene of the left foot with extensively necrotic toes and underlying acute osteo-myelitis of multiple toes, POA Sepsis 2/2 complicated soft tissue infection of the left foot with underlying osteomyelitis)/Gram-negative bacteremia, POA Status post transmetatarsal amputation left foot 08/31/2024 Gram-negative bacteremia secondary secondary to Proteus mirabilis POA Urinary tract infection, secondary to E coli and Proteus mirabilis, POA Left foot wound culture positive for Proteus mirabilis Poorly controlled type 2 diabetes mellitus, POA Acute renal failure, POA Acute rhabdomyolysis, POA Anemia, POA Significant leukocytosis secondary to underlying septicemia, POA Moderate hyponatremia, POA Hx of right BKA, POA PLAN: Treatment: - Surgical: Transmetatarsal amputation of the left foot with partial medial cuneiformectomy and tendon transfer was performed. - Medications: Continued IV antibiotics with IV Zosyn and Zyvox. - ID recommends LTAC placement, continue antibiotics for four weeks - PICC line placed ready to use - Wound Care: Wound packing with betadine sulcos and complex layered primary wound closure. - case management to coordinate for LTAC placement, pending insurance approval Tests: - final wound culture results showing Proteus mirabilis and Staphylococcus aureus. - Blood cultures showed Proteus mirabilis; intraoperative cultures showed Pr oteus mirabilis and Staphylococcus aureus. - CT angiogram of bilateral lower extremities showed atherosclerosis and occlusions. Patient Education: - Discussed post-operative care and the importance of completing the antibiotic course. Follow-Up: - The patient is being followed by infectious disease for ongoing antibiotic management. - Library Media Specialist follow-up for management of peripheral arterial disease. - Nephrology follow-up for renal function monitoring. Disposition: - Continue monitoring in the hospital setting due to the complexity of the condition and post-operative status. NEURO: Minimize central acting medications as possible. Fall Precautions. Well lighted room through the day and minimize interruptions through the night to prevent acute delirium. PULMONARY: Supplemental 02 as needed BiPAP as necessary, for respiratory distress Titrate Fio2 to keep Spo2 > or = 90% DuoNebs and CPT as needed IS hourly while awake for pulmonary hygiene prn Out of bed to chair as tolerated Maintain aspiration precautions at all times CARDIOVASCULAR: Pending CT angio results Continue Plavix 75 mg p.o. daily Social consulted for help to obtain medications that we will need to be taking uninterrupted for at least three months before Dr. Villalpando can proceed with any invasive studies Following weighmaster's recommendations Follow hemodynamics. Vital signs per facility protocol GI & NUTRITION: Continue nutritional support Aspirations precautions Prokinetic agents and laxatives as needed KIDNEYS & ELECTROLYTES: Strict monitoring of intake and output Daily weights Avoid nephrotoxic agents Monitor electrolytes and replace as needed Goal urine output of 30mL/hr or 0.5mL/kg/hr Medications to be dosed according to renal function. Avoid contrast if possible ENDOCRINE: Maintain blood glucose between 100-180 at all times. Insulin sliding scale for blood glucose management Hypoglycemia and hyperglycemia protocol in place INFECTIOUS DISEASE: Trend temperature, WBC and procalcitonin level Follow cultures, deescalate antibiotics as soon as possible. Panculture if new onset fever HEMATOLOGY & COAGULATION: Monitor H&H. Keep Hgb > 7 Transfuse 1 unit of PRBC for Hgb < 7 Transfuse 1 pack of platelets of platelets < 20, 000 Watch for any signs and symptoms of bleeding SKIN: Pressure ulcer prevention per facility protocol Specialty mattress as needed ORTHO/REHAB Continue PT/OT PRN: MEDICATIONS Tylenol 650 mg po every 4 hrs for fever zofran 4 mg IV every 6 hrs for n/v Hydralazine 5 mg IV every 4 hrs systolic pressure > 160 bowel regiment: lactulose 20 gm PO BID PRN constipation Supportive measures: PRN Treatment - Add when necessary meds for nausea, vomiting, pain, constipation, insomnia. DVT/GI prophylaxis- Continue SCDs Full CODE STATUS Disposition: LTAC placement All questions answered time spent: > 35 min This document was generated in part using voice recognition software, occasional wrong word or sound alike substitutions may have occurred due to the inherent limitations of voice recognition software. Read the chart carefully and recognize using context, where the substitutions have occurred. Although every effort was made to edit the content, auto fleet manager and typing errors may occur This case was discussed with Dr. Sierra and above plan was formulated ATTESTATION BY PHYSICIAN I have seen and examined the patient. I reviewed the documentation, medical decision making, and treatment plan as noted by the mid-level provider above. I agree with the findings and plan of care. Cristela Sierra MD, [facility] Sep 06, 2024 15:06
--- NOTE | 2024-09-06 18:25 | PN ---
INFECTIOUS DISEASE PROGRESS NOTE Date of Service: Sep 06, 2024 SUBJECTIVE: This is a 64 year old male patient who was seen today at bedside in room 412. Patient is awake, alert and oriented x3. Patient is status post left TMA on 08/31/2024 and with polymicrobial infection. No fever, temperature is 97.7 and the WBC has trended down to 14.2. We will continue on Zosyn and Zyvox IV. Pending insurance approval to LTAC. PHYSICAL EXAM EYES: Anicteric. Pupils equal and reactive. HENT: No oral thrush seen, moist Oral mucosa. NECK: Supple, no JVD or thyromegaly. LUNGS: Good air entry. No rales, no rhonchi. CARDIOVASCULAR: S1, S2 regular. No murmur heard. ABDOMEN: Soft, non tender, bowel sounds present, no organomegaly. CENTRAL NERVOUS SYSTEM: Awake, alert, oriented x 3. SKIN: No rashes, no swelling. LYMPHATICS: No peripheral lymphadenopathy MUSCULOSKELETAL: No joint swelling, erythema or tenderness. EXTREMITIES: Dry dressing to left lower extremity. Left TMA. BACK: No deformity, no pressure ulcer. GENITOURINARY: No dysuria or hematuria. Vital Sign (Last 12 Hours) 09/06/24 09/06/24 09/06/24 09/06/24 08:00 08:00 11:52 16:00 Temp 97.9 97.7 98.1 Pulse 90 86 83 Resp 16 19 16 B/P (MAP) 96/59 95/54 110/61 Pulse Ox 100 100 97 99 O2 Delivery Room Air* Room Air Room Air Room Air O2 Flow Rate 0 FiO2 21 21 21 Intake & Output (last 24hrs) 09/05/24 09/05/24 09/06/24 15:00 23:00 07:00 Output Total 420 ml 300 ml Balance -420 ml -300 ml LABS: Laboratory: Test 09/06/24 16:56 09/06/24 04:51 Range/Units Whole Blood Glucose 166 H 70-110 MG/DL Bedside Glucose Comment Notified Nurse White Blood Count 14.2 H 4.8-10.8 K/uL Red Blood Count 2.68 L 4.50-6.20 MIL/uL Hemoglobin 8.0 L 14.0-18.0 g/dL Hematocrit 24.2 L 42-54 % Mean Corpuscular Volume 90.3 79-99 fL Mean Corpuscular Hemoglobin 29.9 27.0-33.0 pg Mean Corpuscular Hemoglobin Concent 33.1 32.0-36.0 g/dL Red Cell Distribution Width 13.2 11.0-15.5 % Platelet Count 269 130-400 K/uL Mean Platelet Volume 9.3 7.5-10.5 fL Nucleated Red Blood Cells 0.0 0.0-0.19 % Sodium Level 132 L 136-145 mmol/L Potassium Level 3.6 3.5-5.1 mmol/L Chloride Level 98 L 101-111 mmol/L Carbon Dioxide Level 26 21-32 mmol/L Blood Urea Nitrogen 17 7-18 mg/dL Creatinine 1.3 0.5-1.3 mg/dL Glomerular Filtration Rate Calc 61 >90 mL/min Random Glucose 166 H 70-105 mg/dL Total Calcium 7.8 L 8.5-10.1 mg/dL Phosphorus Level 2.5 2.5-4.9 mg/dL Magnesium Level 1.90 1.80-2.40 mg/dL Total Bilirubin 0.5 0.2-1.0 mg/dL Aspartate Amino Transf (AST/SGOT) 15 10-37 U/L Alanine Aminotransferase (ALT/SGPT) 10 L 12-78 U/L Alkaline Phosphatase 62 50-136 U/L Total Protein 5.5 L 6.0-8.3 g/dL Albumin 1.6 L 3.5-5.0 g/dL ASSESSMENT: Left foot diabetic ulcer with polymicrobial infection, possible osteomyelitis, status post transmetatarsal amputation on 08/31/2024. Urinary tract infection with ESBL, E coli and Proteus mirabilis. Proteus mirabilis bacteremia. Chronic kidney disease. Leukocytosis, resolving. Diabetes mellitus Peripheral Artery disease. Anemia. PLAN: Continue Zyvox IV. Continue Zosyn. Continue pain management. Continue antidiabetics. Continue wound care. Will need 4 weeks of IV antibiotics. Pending insurance approval to LTAC. This case was reviewed and discussed with my supervising physician and the above assessment and plan was formulated and agreed upon. ATTESTATION BY PHYSICIAN I have seen and examined the patient. I reviewed the documentation, medical decision making, and treatment plan as noted by the mid-level provider above. I agree with the findings and plan of care. SUSANNE BETTENCOURT MD, [facility] Sep 06, 2024 18:25
[2024-09-07] VITALS: BP 107/58; PULSE 90; RESP 20; TEMP 98.6
[2024-09-07 04:00] VITALS: BP 107/58; PULSE 87; RESP 18; TEMP 97.8
[2024-09-07 04:12] LABS: NUCLEATED RED BLOOD CELLS 0.0 % (0.0-0.19); PLATELET COUNT (AUTO) 264.0 K/uL (130-400); RED BLOOD CELL COUNT(AUTO) 2.54 MIL/uL (4.50-6.20); RED CELL DISTRIBUTION WIDTH 13.4 % (11.0-15.5); WHITE BLOOD COUNT (AUTO) 13.1 K/uL (4.8-10.8)
[2024-09-07 04:33] LABS: ASPARTATE AMINOTRANSFERASE 20.0 U/L (10-37); CREATININE 1.2 mg/dL (0.5-1.3); GLOMERULAR FILTR. RATE CALC 67.0 mL/min (>90); GLUCOSE,RANDOM 175.0 mg/dL (70-105); SODIUM SERUM 132.0 mmol/L (136-145); TOTAL PROTEIN, SERUM 5.4 g/dL (6.0-8.3); UREA NITROGEN, BLOOD 18.0 mg/dL (7-18)
[2024-09-07 08:00] VITALS: BP 98/57; PULSE 97; RESP 16; TEMP 97.7; O2SAT 99
[2024-09-07 11:49] VITALS: BP 98/55; PULSE 52; RESP 16; TEMP 97.9
--- NOTE | 2024-09-07 12:31 | PN ---
[facility] PROGRESS NOTE Date of Service: Sep 07, 2024 Time of Service: 12:[address] Sierra SUBJECTIVE: This is a 63-year-old male with underlying history of poorly controlled type 2 diabetes mellitus, peripheral arterial disease, prior history of right [id number] amputation in 2020 due to right foot gangrene and necrotizing fasciitis. Patient presented to the emergency room August 30, 2024, with a chronic wounds involving toes to the foot, that according to him over the last several weeks has been getting more necrotic and foul smelling. He also reported having fever and chills. On presentation to the hospital, patient was noted to be febrile with T-max of 100.0 F, heart rate of 102, blood pressure of 81/50. [place] [address], hemoglobin of 10.3, platelet count of 892808. BMP remarkable for sodium of 125, potassium 5.1, chloride of 90, BUN of 52, creatinine 2.0, blood glucose of 180, CK of 436 cardiac panel showed troponin of six. Patient admitted for further treatment and management of wet gangrene of the right foot with suspected chronic osteomyelitis of the toes. Patient received IV fluids and IV antibiotics. Consultation with Podiatry, Infectious Disease requested. 08/31 patient remains admitted to the PCU, BP 130/63, afebrile, saturating normal on room air. Leukocytosis improving, today WBC 14.9. Creatinine better at 1.6. Results of blood culture Gram-negative rods, positive in two of two sets. X- ray of the left foot status post interval amputation great toe, 2nd toe, 3rd toe with soft tissue edema subcutaneous emphysema overlying the 1st metatarsal, possible osteomyelitis of the 3rd and 4th proximal phalanx. Arterial ultrasound mild intimal wall thickening in both lower limb arteries, both lower limb arteries demonstrate biphasic waveform in all arteries other family left posterior tibial, anterior tibial and dorsalis pedis which demonstrate monophasic waveform, no flow-limiting stenosis. Renal ultrasound normal kidneys, no hydronephrosis, mild debris is noted in the urinary bladder, cystitis should be excluded. Patient on broad-spectrum IV antibiotics with Zosyn and linezolid, ID and podiatry consulted, input noted and appreciated. Cardiology consultation requested as the patient with peripheral arterial disease. We will follow input and recommendation. Renal ultrasound normal, no hydronephrosis, creatinine improving, nephrology consulted, we will follow input and recommendation. During my visit the patient is comfortable, back in the room from having debridement, eating lunch, tolerating well, getting good pain control with current medical management, at bedside, updated. 09/01 Patient presented to the emergency room August 30, 2024, with a chronic wounds involving toes to the left foot. X-ray of the left foot status post interval amputation great toe, 2nd toe, 3rd toe with soft tissue edema subcutaneous emphysema overlying the 1st metatarsal, possible osteomyelitis of the 3rd and 4th proximal phalanx. Patient is status post transmetatarsal amputation the left foot 08/31/24. Tolerated the procedure well. Results of blood culture positive for Proteus mirabilis. Urine culture [id number] CFU, identification and susceptibility process. Patient Zosyn IV, continue to follow podiatry and ID input and recommendation. During my visit the patient is comfortable, eating lunch, tolerating well, alert oriented x3, getting IV antibiotics, denied chest pain, shortness shortness for breath, no nausea, no vomiting, getting good pain control with current medical management, plan of care discussed with the patient and the at bedside, all questions answered. Agreed and understood all the information provided. 09/02 Patient presented to the emergency room August 30, 2024, with a chronic wounds involving toes to the left foot. X-ray of the left foot status post interval amputation great toe, 2nd toe, 3rd toe with soft tissue edema subcutaneous emphysema overlying the 1st metatarsal, possible osteomyelitis of the 3rd and 4th proximal phalanx. Patient is status post transmetatarsal amputation the left foot 08/31/24. Tolerated the procedure well. Results of blood culture positive for Proteus mirabilis. Wound culture from the left foot positive for Proteus mirabilis, urine culture positive for E coli and Proteus mirabilis. Patient remains on broad-spectrum IV antibiotics with Zosyn until systolic IV, continue to follow podiatry and ID input and recommendation, continue local wound care. Consider prison facility versus [facility] for continuation of medical care. During my visit the patient remains comfortably in bed, alert oriented x3, case discussed with the RN, no acute events overnight, plan to downgraded to the medical floor. 09/03 Seen and examined. Vitals are stable. White count is 16.5, H&H 8.3/25.3, CMP is stable. S/p TMA of Left foot with partial medial cuneiformectomy, transfer of the extensor hallucis longus to the flexor hallucis longus tendon, complex layered primary wound closure of a highly modified 22cm surgical incision by Dr. Lim on 08/31/24. Initial blood cultures are growing Proteus mirabilis, repeat blood cultures negative so far, intraoperative cultures positive for Proteus mirabilis and Staphylococcus aureus. Urine cultures growing ESBL E coli and Proteus mirabilis. CT angio results are pending. No incidences reported overnight. 09/04 The patient was seen and examined in the room this morning. He is alert oriented x3. denies pain at this time. Patient is postop day 4. S/P transmetatarsal amputation of the left foot with partial medial cuneiform anti and tendon transfer performed by Dr. Lim. He continues with IV antibiotics. Wound care being managed by Dr. Lim. 09/05 Today on bedside evaluation patient was found awake alert and oriented x 3. The power chart reviewed, vital signs, laboratory tests, imaging test and medications have been reviewed. Latest vitals are stable, white count is elevated at 73.7, H&H 7.5/22.7, renal function remains slightly elevated BUN at 19, creatinine 1.4. Case management is coordinating for LTAC placement. 09/06 Seen and examined. Vital signs are stable, afebrile. White count is downtrending now at 14.2, H&H improving 8/24.2, CMP is stable. No incidences reported overnight. Pending LTAC placement. 09/07 patient was seen by nurse practitioner physician during rounding in room 412. At this moment patient is pending discharge to [facility] once insurance approved.. WBC 13.1 hemoglobin 7.4 hematocrit 22.9. No incidents reported overnight. We will continue to monitor patient in the meantime. A.m. labs REVIEW OF SYSTEMS CONSTITUTIONAL: fevers, chills, malaise, poor oral intake NEUROLOGICAL: Denies headache, amaurosis fugax, motor weakness, sensory defic it, vertigo/spinning sensation, gait abnormalities, or tremors. ENT: No hearing loss, otalgia, otorrhea, rhinitis, rhinorrhea, hoarseness, or sore throat. CARDIOVASCULAR: Denies any exertional angina, dyspnea on exertion, orthopnea, paroxysmal nocturnal dyspnea, palpitations, life-threatening arrhythmias, claudication. PULMONARY: Denies any shortness of breath, cough, phlegm/sputum, hemoptysis, pleuritic chest pain. SLEEP: Denies morning headaches, daytime somnolence or napping. Denies difficulty falling asleep, staying asleep, waking from sleep. Denies knowledge of snoring. GASTROINTESTINAL: Denies any type of dysphagia to either liquids or solids. Denies nausea, vomiting, pyrosis, early satiety, abdominal pain, diarrhea, constipation, or changes in stool consistency or caliber. Denies coffee-ground emesis, hematemesis, hematochezia, or melanotic stools. GENITOURINARY: Denies frequency, urgency, nocturia, hematuria or incontinence (Storage/Irritative symptoms.) Low urinary stream, straining to void, urinary intermittency or hesitancy, splitting of the voiding stream, terminal dribbling. ENDOCRINOLOGIC: Hx of type 2 Diabetes mellitus HEMATOLOGIC: Denies thrombophilia/previous clots, or coagulopathy/bleeding disorders. ONCOLOGIC: Denies personal history of malignancy. DERMATOLOGIC: foul smelling necrotic toes of the left foot with non healing wounds PSYCHIATRIC: Denies any suicidal or homicidal ideation. Denies hallucinations. PHYSICAL EXAM GENERAL APPEARANCE: The patient is awake, alert, and oriented, in no acute cardiopulmonary distress. NEUROLOGICAL: Cranial nerves II-XII grossly intact. Motor is 5/5 in bilateral upper and lower extremities proximal to distal. No sensory deficits. HEENT: Face is symmetric. Pupils are equal and reactive. Extraocular movements are intact. NECK: Supple. No JVD. No thyromegaly. No submental, submandibular, pre- /postauricular, occipital or supraclavicular lymphadenopathy. CHEST: Normal chest expansion. No Telemetry. LUNGS: Absence of any rales, rhonchi or any wheezing. CARDIOVASCULAR: Regular. S1 and S2 normal. No appreciable rubs, murmurs or gallops. ABDOMEN: Soft, nontender, and nondistended. There is no rebound, voluntary guarding, or rigidity. : Deferred. No Sandhu. EXTREMITIES: Left foot noted to have extremely foul-smelling wound with necrotic toes noted from 2nd two fifth digit, area of erythema and surrounding cellulitic changes noted Vital Signs (last 8hr) Date Time Temp Pulse Resp B/P (MAP) Pulse Ox O2 Delivery O2 Flow Rate FiO2 09/07/24 11:49 97.9 52 16 98/55 100 Room Air 09/07/24 08:00 97.7 97 16 98/57 99 Room Air LABS: Laboratory: Test 09/07/24 11:31 09/07/24 03:42 09/06/24 16:56 09/06/24 04:51 Range/Units Whole Blood Glucose 171 H 70-110 MG/DL White Blood Count 13.1 H 4.8-10.8 K/uL Red Blood Count 2.54 L 4.50-6.20 MIL/uL Hemoglobin 7.4 L 14.0-18.0 g/dL Hematocrit 22.9 L 42-54 % Mean Corpuscular Volume 90.2 79-99 fL Mean Corpuscular Hemoglobin 29.1 27.0-33.0 pg Mean Corpuscular Hemoglobin Concent 32.3 32.0-36.0 g/dL Red Cell Distribution Width 13.4 11.0-15.5 % Platelet Count 264 130-400 K/uL Mean Platelet Volume 9.5 7.5-10.5 fL Nucleated Red Blood Cells 0.0 0.0-0.19 % Sodium Level 132 L 136-145 mmol/L Potassium Level 4.1 3.5-5.1 mmol/L Chloride Level 99 L 101-111 mmol/L Carbon Dioxide Level 27 21-32 mmol/L Blood Urea Nitrogen 18 7-18 mg/dL Creatinine 1.2 0.5-1.3 mg/dL Glomerular Filtration Rate Calc 67 >90 mL/min Random Glucose 175 H 70-105 mg/dL Total Calcium 7.4 L 8.5-10.1 mg/dL Magnesium Level 1.90 1.80-2.40 mg/dL Total Bilirubin 0.5 0.2-1.0 mg/dL Aspartate Amino Transf (AST/SGOT) 20 10-37 U/L Alanine Aminotransferase (ALT/SGPT) 14 # 12-78 U/L Alkaline Phosphatase 80 # 50-136 U/L Total Protein 5.4 L 6.0-8.3 g/dL Albumin 1.5 L 3.5-5.0 g/dL Bedside Glucose Comment Notified Nurse Phosphorus Level 2.5 2.5-4.9 mg/dL Current Medications Medications (Trade) Dose Ordered Sig/Nathaly Route PRN Reason Start Time Stop Time Status Last Admin Dose Admin Acetaminophen (TYLenol 325MG TAB) 650 mg Q6H PRN PO MILD PAIN (1-3) 08/30/24 17:30 09/29/24 17:29 Betamethasone Valerate (Betamethasone Valerate) 1 APPLICATION TID TP 09/01/24 14:00 10/01/24 13:59 Cancel Clopidogrel Bisulfate (plaVIX 75MG) 75 mg DAILY PO 09/02/24 09:00 10/02/24 08:59 09/07/24 09:22 75 MG Dextrose (D50w) 50 ml AD PRN IV HYPOGLYCEMIA PROTOCOL 08/30/24 18:00 09/29/24 17:59 Glucagon (Glucagon 1mg Kit) 1 mg AD PRN IM HYPOGLYCEMIA PROTOCOL 08/30/24 18:00 09/29/24 17:59 Hydromorphone HCl (DiLAUDid 0.5MG INJ) 0.2 mg Q6H PRN IVP SEVERE PAIN (7-10) 08/30/24 17:30 09/04/24 17:29 DC Insulin Human Regular (humuLIN R 100 UNIT/ML 3ML) INSULIN SLIDING SCAL... ACHS SQ 08/30/24 21:00 09/29/24 20:59 09/06/24 11:58 2 UNIT Linezolid 300 ml @ 150 mls/hr Q12H IV 08/30/24 18:00 08/30/24 17:37 DC Linezolid 300 ml @ 150 mls/hr Q12H IV 08/30/24 20:00 09/09/24 19:59 09/07/24 09:22 150 MLS/HR Metformin HCl (glucoPHAGE) 1,000 mg BIDMEALS PO 09/07/24 17:00 10/07/24 16:59 Ondansetron HCl (zoFRAN 4MG INJ) 4 mg Q6H PRN IVP NAUSEA/VOMITING 08/30/24 17:30 09/29/24 17:29 Pharmacy Profile Note (Pharmacy Communication) 1 each ONCE MISC 08/30/24 17:30 09/01/24 07:16 DC 08/30/24 17:56 1 EACH Piperacillin Sod/ Tazobactam Sod (Zosyn 3.375gm+NS 50ml) 3.375 gm Q12H IVPB 08/30/24 21:00 08/31/24 06:42 DC 08/30/24 23:06 3.375 GM Piperacillin Sod/ Tazobactam Sod (Zosyn 3.375gm+NS 50ml) 3.375 gm Q8H IVPB 08/31/24 07:00 09/09/24 20:59 09/07/24 06:45 3.375 GM Potassium Chloride 100 ml @ 100 mls/hr AD PRN IV POTASSIUM PROTOCOL 09/06/24 08:00 10/06/24 07:59 Potassium Chloride (K-Dur/Klor-Con 20meq) 20 meq AD PRN PO POTASSIUM PROTOCOL 09/06/24 08:00 10/06/24 07:59 09/06/24 15:41 20 MEQ Potassium Chloride (KCl 10% Elixir 20meq/15ml) 20 meq AD PRN PO POTASSIUM PROTOCOL 09/06/24 08:00 10/06/24 07:59 Sodium Chloride 1,000 ml @ 75 mls/hr [id number] IV 08/30/24 20:00 09/01/24 12:55 DC 08/31/24 22:29 75 MLS/HR Thiamine HCl (Vitamin B-1) 100 mg Q24H IVP 08/30/24 18:00 09/01/24 16:47 DC 08/31/24 18:33 100 MG Thiamine HCl (Vitamin B-1) 100 mg Q24H IVP 09/01/24 20:00 10/01/24 19:59 09/06/24 20:57 100 MG Vitamin B Complex/ Vit C/Folic Acid (Nephrovite Tablet) 1 cap DAILY PO 09/01/24 09:00 10/01/24 08:59 09/07/24 09:22 1 CAP DIAGNOSTICS / RADIOLOGY: [ ] ASSESSMENT: Gas/wet gangrene of the left foot with extensively necrotic toes and underlying acute osteo-myelitis of multiple toes, POA Sepsis 2/2 complicated soft tissue infection of the left foot with underlying osteomyelitis)/Gram-negative bacteremia, POA Status post transmetatarsal amputation left foot 08/31/2024 Gram-negative bacteremia secondary secondary to Proteus mirabilis POA Urinary tract infection, secondary to E coli and Proteus mirabilis, POA Left foot wound culture positive for Proteus mirabilis Poorly controlled type 2 diabetes mellitus, POA Acute renal failure, POA Acute rhabdomyolysis, POA Anemia, POA Significant leukocytosis secondary to underlying septicemia, POA Moderate hyponatremia, POA Hx of right BKA, POA PLAN: Treatment: - Surgical: Transmetatarsal amputation of the left foot with partial medial cuneiformectomy and tendon transfer was performed. - Medications: Continued IV antibiotics with IV Zosyn and Zyvox. - ID recommends LTAC placement, continue antibiotics for four weeks - PICC line placed ready to use - Wound Care: Wound packing with betadine sulcos and complex layered primary wound closure. - case management to coordinate for LTAC placement, pending insurance approval Tests: - final wound culture results showing Proteus mirabilis and Staphylococcus aureus. - Blood cultures showed Proteus mirabilis; intraoperative cultures showed Proteus mirabilis and Staphylococcus aureus. - CT angiogram of bilateral lower extremities showed atherosclerosis and occlusions. Patient Education: - Discussed post-operative care and the importance of completing the antibiotic course. Follow-Up: - The patient is being followed by infectious disease for ongoing antibiotic management. - Water Chemist follow-up for management of peripheral arterial disease. - Nephrology follow-up for renal function monitoring. Disposition: - Continue monitoring in the hospital setting due to the complexity of the condition and post-operative status. NEURO: Minimize central acting medications as possible. Fall Precautions. Well lighted room through the day and minimize interruptions through the night to prevent acute delirium. PULMONARY: Supplemental 02 as needed BiPAP as necessary, for respiratory distress Titrate Fio2 to keep Spo2 > or = 90% DuoNebs and CPT as needed IS hourly while awake for pulmonary hygiene prn Out of bed to chair as tolerated Maintain aspiration precautions at all times CARDIOVASCULAR: Pending CT angio results Continue Plavix 75 mg p.o. daily Social consulted for help to obtain medications that we will need to be taking uninterrupted for at least three months before Dr. Villalpando can proceed with any invasive studies Following cost accountant's recommendations Follow hemodynamics. Vital signs per facility protocol GI & NUTRITION: Continue nutritional support Aspirations precautions Prokinetic agents and laxatives as needed KIDNEYS & ELECTROLYTES: Strict monitoring of intake and output Daily weights Avoid nephrotoxic agents Monitor electrolytes and replace as needed Goal urine output of 30mL/hr or 0.5mL/kg/hr Medications to be dosed according to renal function. Avoid contrast if possible ENDOCRINE: Maintain blood glucose between 100-180 at all times. Insulin sliding scale for blood glucose management Hypoglycemia and hyperglycemia protocol in place INFECTIOUS DISEASE: Trend temperature, WBC and procalcitonin level Follow cultures, deescalate antibiotics as soon as possible. Panculture if new onset fever HEMATOLOGY & COAGULATION: Monitor H&H. Keep Hgb > 7 Transfuse 1 unit of PRBC for Hgb < 7 Transfuse 1 pack of platelets of platelets < 20, 000 Watch for any signs and symptoms of bleeding SKIN: Pressure ulcer prevention per facility protocol Specialty mattress as needed ORTHO/REHAB Continue PT/OT PRN: MEDICATIONS Tylenol 650 mg po every 4 hrs for fever zofran 4 mg IV every 6 hrs for n/v Hydralazine 5 mg IV every 4 hrs systolic pressure > 160 bowel regiment: lactulose 20 gm PO BID PRN constipation Supportive measures: PRN Treatment - Add when necessary meds for nausea, vomiting, pain, constipation, insomnia. DVT/GI prophylaxis- Continue SCDs Full CODE STATUS Disposition: LTAC placement All questions answered time spent: > 35 min This document was generated in part using voice recognition software, occasional wrong word or sound alike substitutions may have occurred due to the inherent limitations of voice recognition software. Read the chart carefully and recognize using context, where the substitutions have occurred. Although every effort was made to edit the content, sole cutter and typing errors may occur This case was discussed with Dr. Sierra and above plan was formulated ATTESTATION BY PHYSICIAN I have seen and examined the patient. I reviewed the documentation, medical decision making, and treatment plan as noted by the mid-level provider above. I agree with the findings and plan of care. Cristela Sierra MD ATTESTATION BY PHYSICIAN I have seen and examined the patient. I reviewed the documentation, medical decision making, and treatment plan as noted by the mid-level provider above. I agree with the findings and plan of care. Cristela Sierra MD, [employer]AT[employer] B INSTITUTIONAL RESEARCH DIRECTOR Sep 07, 2024 12:31
[2024-09-07 16:00] VITALS: BP 115/70; PULSE 84; RESP 16; TEMP 97.6
[2024-09-07 20:00] VITALS: BP 103/58; PULSE 85; RESP 16; TEMP 97.7; O2SAT 96
[2024-09-08] VITALS: BP 102/71; PULSE 83; RESP 19; TEMP 97.8
--- NOTE | 2024-09-08 00:32 | PN ---
INFECTIOUS DISEASE FOLLOWUP NOTE DATE OF SERVICE: 09/07/2024 SUBJECTIVE: The patient is seen and examined at bedside. No fever, no chills. No nausea. No vomiting. No abdominal pain. Denies cough, shortness of air. No palpitations or orthopnea. No depression. No suicidal ideation. No heat or cold intolerance. No bleeding tendency. No rashes or itchiness. PHYSICAL EXAMINATION: VITAL SIGNS: Temperature today is 97.5. EYES: No icterus. Pupils are equal and reactive. HENT: No oral thrush seen. Moist oral mucosa. NECK: Supple. No JVD or thyromegaly. LUNGS: Good air entry. No rales. No rhonchi. CARDIOVASCULAR: S1 and S2 regular. No murmur heard. ABDOMEN: Full, soft, nontender. Bowel sounds present. CENTRAL NERVOUS SYSTEM: Awake, alert, oriented x 3. Bedbound debility. SKIN: No rashes, no itchiness. LYMPHATIC: Has inguinal lymphadenopathy. BACK: No deformity or pressure ulcer. EXTREMITIES: Status post left foot transmetatarsal amputation ____ incision. ASSESSMENT: A 64-year-old male admitted with left foot pain, swelling and redness. Current problems include: * Gram-negative sepsis. * Left foot osteomyelitis, status post surgery. * Diabetic foot ulcer. * Chronic renal failure. * Diabetes mellitus. * Malnutrition. PLAN: * Continue wound care. * Continue linezolid. * Continue Zosyn. * Continue antidiabetic. * Continue DVT prophylaxis. * Monitor electrolytes. * Continue nutritional support. * The patient will be followed up closely. TID: [id number] RECEIPT: [id number]
[2024-09-08 04:00] VITALS: BP 100/56; PULSE 85; RESP 16; TEMP 98
[2024-09-08 06:16] LABS: IMMATURE GRANULOCYTE ABSOLUTE 0.08 K/uL (0-1); NUCLEATED RED BLOOD CELLS 0.0 % (0.0-0.19); PLATELET COUNT (AUTO) 236 K/uL (130-400); RED BLOOD CELL COUNT(AUTO) 2.44 MIL/uL (4.50-6.20); RED CELL DISTRIBUTION WIDTH 13.5 % (11.0-15.5); WHITE BLOOD COUNT (AUTO) 12.6 K/uL (4.8-10.8)
[2024-09-08 06:43] LABS: ASPARTATE AMINOTRANSFERASE 19.0 U/L (10-37); CREATININE 1.3 mg/dL (0.5-1.3); GLOMERULAR FILTR. RATE CALC 61.0 mL/min (>90); GLUCOSE,RANDOM 134.0 mg/dL (70-105); PHOSPHORUS 2.5 mg/dL (2.5-4.9); SODIUM SERUM 133.0 mmol/L (136-145); TOTAL PROTEIN, SERUM 5.3 g/dL (6.0-8.3); UREA NITROGEN, BLOOD 17.0 mg/dL (7-18)
[2024-09-08 08:00] VITALS: BP 109/63; PULSE 85; RESP 16; TEMP 97.9; O2SAT 99
--- NOTE | 2024-09-08 10:50 | PN ---
SUBJECTIVE: The patient is a very pleasant 64-year-old diabetic male, status post one-week transmetatarsal amputation to his foot on the left. He is being followed by infectious disease. He is currently receiving Zyvox and Zosyn. He has had cultures, which have grown back Proteus mirabilis and Staph aureus from his foot wound, E. coli and Proteus mirabilis from his urine. The patient is currently afebrile. T-max 98.1, pulse 85, respirations 16, blood pressure 100/56. His blood culture has no growth x 5 days. White count is 12.6, H and H are 7.3 and 22.7, platelets 236. Neutrophils 89.4. The patient is without complaints of pain to his left foot. REVIEW OF SYSTEMS: CONSTITUTIONAL: No chills. No fevers. No night sweats. No nausea or vomiting. No diarrhea. HEENT: No problems with his eyes, ears, nose, or throat. CARDIOVASCULAR: Having no current chest pain. RESPIRATORY: No shortness of breath. GENITOURINARY: No dysuria. GASTROINTESTINAL: No dysphagia. ENDOCRINE: Diabetes. The patient has had a hemoglobin A1c of 7.7. Albumin of 2.8. BUN and creatinine are 17 and 1.3. Albumin today 1.5. Total protein 5.3. PSYCHIATRIC: Denied depression. MUSCULOSKELETAL: Transmetatarsal amputation on the left. [id number] amputation on the right. The patient does not have a prosthetic for the right. INTEGUMENTARY: Incision site is coapted. He has demarcated eschar to the dorsal and medial aspect of the surgical flap that is measuring approximately 23 cm x 2 cm. ASSESSMENT: Status post transmetatarsal amputation on the left, peripheral vascular disease, low albumin, anemia, polymicrobial wound infection, polymicrobial urinary tract infection, receiving Zyvox and Zosyn. The patient has been evaluated for long-term acute care facility placement with IV antibiotics therapy and local wound care. The patient has leukocytosis, peripheral vascular disease, being followed by cardiology. No plans for revascularization procedure at this point. PLAN: We will continue with Betadine dressings, offloading measures, IV Zyvox and IV Zosyn per infectious disease. The patient is being followed by the cardiology service. The patient is being evaluated for placement to a long-term acute care facility for continuation of IV antibiotics and local wound care. The patient with some demarcating eschar to the dorsal medial flap of his surgical site and anticipate transfer to [facility] and we will continue to follow the patient after transfer. TID: [id number] RECEIPT: [id number]
[2024-09-08 11:53] VITALS: BP 130/74; PULSE 85; RESP 16; TEMP 97.6
--- NOTE | 2024-09-08 14:02 | PN ---
[facility] PROGRESS NOTE Date of Service: Sep 08, 2024 Time of Service: 14:01 Attending doctor Abilio SUBJECTIVE: This is a 63-year-old male with underlying history of poorly controlled type 2 diabetes mellitus, peripheral arterial disease, prior history of right [id number]-[id number] amputation in 2020 due to right foot gangrene and necrotizing fasciitis. Patient presented to the emergency room August 30, 2024, with a chronic wounds involving toes to the foot, that according to him over the last several weeks has been getting more necrotic and foul smelling. He also reported having fever and chills. On presentation to the hospital, patient was noted to be febrile with T-max of 100.0 F, heart rate of 102, blood pressure of 81/50. Labs [place] [address], hemoglobin of 10.3, platelet count of 292930. BMP remarkable for sodium of 125, potassium 5.1, chloride of 90, BUN of 52, creatinine 2.0, blood glucose of 180, CK of 436 cardiac panel showed troponin of six. Patient admitted for further treatment and management of wet gangrene of the right foot with suspected chronic osteomyelitis of the toes. Patient received IV fluids and IV antibiotics. Consultation with Podiatry, Infectious Disease requested. 08/31 patient remains admitted to the PCU, BP 130/63, afebrile, saturating normal on room air. Leukocytosis improving, today WBC 14.9. Creatinine better at 1.6. Results of blood culture Gram-negative rods, positive in two of two sets. X- ray of the left foot status post interval amputation great toe, 2nd toe, 3rd toe with soft tissue edema subcutaneous emphysema overlying the 1st metatarsal, possible osteomyelitis of the 3rd and 4th proximal phalanx. Arterial ultrasound mild intimal wall thickening in both lower limb arteries, both lower limb arteries demonstrate biphasic waveform in all arteries other family left posterior tibial, anterior tibial and dorsalis pedis which demonstrate monophasic waveform, no flow-limiting stenosis. Renal ultrasound normal kidneys, no hydronephrosis, mild debris is noted in the urinary bladder, cystitis should be excluded. Patient on broad-spectrum IV antibiotics with Zosyn and linezolid, ID and podiatry consulted, input noted and appreciated. Cardiology consultation requested as the patient with peripheral arterial disease. We will follow input and recommendation. Renal ultrasound normal, no hydronephrosis, creatinine improving, nephrology consulted, we will follow input and recommendation. During my visit the patient is comfortable, back in the room from having debridement, eating lunch, tolerating well, getting good pain control with current medical management, at bedside, updated. 09/01 Patient presented to the emergency room August 30, 2024, with a chronic wounds involving toes to the left foot. X-ray of the left foot status post interval amputation great toe, 2nd toe, 3rd toe with soft tissue edema subcutaneous emphysema overlying the 1st metatarsal, possible osteomyelitis of the 3rd and 4th proximal phalanx. Patient is status post transmetatarsal amputation the left foot 08/31/24. Tolerated the procedure well. Results of blood culture positive for Proteus mirabilis. Urine culture [id number] CFU, identification and susceptibility process. Patient Zosyn IV, continue to follow podiatry and ID input and recommendation. During my visit the patient is comfortable, eating lunch, tolerating well, alert oriented x3, getting IV antibiotics, denied chest pain, shortness shortness for breath, no nausea, no vomiting, getting good pain control with current medical management, plan of care discussed with the patient and the at bedside, all questions answered. Agreed and understood all the information provided. 09/02 Patient presented to the emergency room August 30, 2024, with a chronic wounds involving toes to the left foot. X-ray of the left foot status post interval amputation great toe, 2nd toe, 3rd toe with soft tissue edema subcutaneous emphysema overlying the 1st metatarsal, possible osteomyelitis of the 3rd and 4th proximal phalanx. Patient is status post transmetatarsal amputation the left foot 08/31/24. Tolerated the procedure well. Results of blood culture positive for Proteus mirabilis. Wound culture from the left foot positive for Proteus mirabilis, urine culture positive for E coli and Proteus mirabilis. Patient remains on broad-spectrum IV antibiotics with Zosyn until systolic IV, continue to follow podiatry and ID input and recommendation, continue local wound care. Consider [facility] facility versus [facility] for continuation of medical care. During my visit the patient remains comfortably in bed, alert oriented x3, case discussed with the RN, no acute events overnight, plan to downgraded to the medical floor. 09/03 Seen and examined. Vitals are stable. White count is 16.5, H&H 8.3/25.3, CMP is stable. S/p TMA of Left foot with partial medial cuneiformectomy, transfer of the extensor hallucis longus to the flexor hallucis longus tendon, complex layered primary wound closure of a highly modified 22cm surgical incision by Dr. Lim on 08/31/24. Initial blood cultures are growing Proteus mirabilis, repeat blood cultures negative so far, intraoperative cultures positive for Proteus mirabilis and Staphylococcus aureus. Urine cultures growing ESBL E coli and Proteus mirabilis. CT angio results are pending. No incidences reported overnight. 09/04 The patient was seen and examined in the room this morning. He is alert oriented x3. denies pain at this time. Patient is postop day 4. S/P transmetatarsal amputation of the left foot with partial medial cuneiform anti and tendon transfer performed by Dr. Lim. He continues with IV antibiotics. Wound care being managed by Dr. Lim. 09/05 Today on bedside evaluation patient was found awake alert and oriented x 3. The power chart reviewed, vital signs, laboratory tests, imaging test and medications have been reviewed. Latest vitals are stable, white count is elevated at 73.7, H&H 7.5/22.7, renal function remains slightly elevated BUN at 19, creatinine 1.4. Case management is coordinating for LTAC placement. 09/06 Seen and examined. Vital signs are stable, afebrile. White count is downtrending now at 14.2, H&H improving 8/24.2, CMP is stable. No incidences reported overnight. Pending LTAC placement. 09/07 patient was seen by nurse practitioner physician during rounding in room 412. At this moment patient is pending discharge to [facility] once insurance approved.. WBC 13.1 hemoglobin 7.4 hematocrit 22.9. No incidents reported overnight. We will continue to monitor patient in the meantime. A.m. labs 09/08 patient was seen by nurse practitioner and during rounding. Patient is pending discharge to [facility] once insurance approved. WBC are trending down. All the labs reviewed by [employer]. A.m. labs. REVIEW OF SYSTEMS CONSTITUTIONAL: fevers, chills, malaise, poor oral intake NEUROLOGICAL: Denies headache, amaurosis fugax, motor weakness, sensory deficit, vertigo/spinning sensation, gait abnormalities, or tremors. ENT: No hearing loss, otalgia, otorrhea, rhinitis, rhinorrhea, hoarseness, or sore throat. CARDIOVASCULAR: Denies any exertional angina, dyspnea on exertion, orthopnea, paroxysmal nocturnal dyspnea, palpitations, life-threatening arrhythmias, claudication. PULMONARY: Denies any shortness of breath, cough, phlegm/sputum, hemoptysis, pleuritic chest pain. SLEEP: Denies morning headaches, daytime somnolence or napping. Denies difficulty falling asleep, staying asleep, waking from sleep. Denies knowledge of snoring. GASTROINTESTINAL: Denies any type of dysphagia to either liquids or solids. Denies nausea, vomiting, pyrosis, early satiety, abdominal pain, diarrhea, constipation, or changes in stool consistency or caliber. Denies coffee-ground emesis, hematemesis, hematochezia, or melanotic stools. GENITOURINARY: Denies frequency, urgency, nocturia, hematuria or incontinence (Storage/Irritative symptoms.) Low urinary stream, straining to void, urinary intermittency or hesitancy, splitting of the voiding stream, terminal dribbling. ENDOCRINOLOGIC: Hx of type 2 Diabetes mellitus HEMATOLOGIC: Denies thrombophilia/previous clots, or coagulopathy/bleeding disorders. ONCOLOGIC: Denies personal history of malignancy. DERMATOLOGIC: foul smelling necrotic toes of the left foot with non healing wounds PSYCHIATRIC: Denies any suicidal or homicidal ideation. Denies hallucinations. PHYSICAL EXAM GENERAL APPEARANCE: The patient is awake, alert, and oriented, in no acute cardiopulmonary distress. NEUROLOGICAL: Cranial nerves II-XII grossly intact. Motor is 5/5 in bilateral upper and lower extremities proximal to distal. No sensory deficits. HEENT: Face is symmetric. Pupils are equal and reactive. Extraocular movements are intact. NECK: Supple. No JVD. No thyromegaly. No submental, submandibular, pre-/postau ricular, occipital or supraclavicular lymphadenopathy. CHEST: Normal chest expansion. No Telemetry. LUNGS: Absence of any rales, rhonchi or any wheezing. CARDIOVASCULAR: Regular. S1 and S2 normal. No appreciable rubs, murmurs or gallops. ABDOMEN: Soft, nontender, and nondistended. There is no rebound, voluntary guarding, or rigidity. : Deferred. No Sandhu. EXTREMITIES: Left foot noted to have extremely foul-smelling wound with necrotic toes noted from 2nd two fifth digit, area of erythema and surrounding cellulitic changes noted Vital Signs (last 8hr) Date Time Temp Pulse Resp B/P (MAP) Pulse Ox O2 Delivery O2 Flow Rate FiO2 09/08/24 11:53 97.5 85 16 130/74 98 Room Air 21 09/08/24 08:00 97.9 85 16 109/63 99 Room Air 09/08/24 08:00 99 Room Air* 0 21 LABS: Laboratory: Test 09/08/24 11:37 09/08/24 05:55 09/07/24 16:28 Range/Units Whole Blood Glucose 173 H 70-110 MG/DL White Blood Count 12.6 H 4.8-10.8 K/uL Red Blood Count 2.44 L 4.50-6.20 MIL/uL Hemoglobin 7.3 L 14.0-18.0 g/dL Hematocrit 22.7 L 42-54 % Mean Corpuscular Volume 93.0 79-99 fL Mean Corpuscular Hemoglobin 29.9 27.0-33.0 pg Mean Corpuscular Hemoglobin Concent 32.2 32.0-36.0 g/dL Red Cell Distribution Width 13.5 11.0-15.5 % Platelet Count 236 130-400 K/uL Mean Platelet Volume 9.4 7.5-10.5 fL Immature Granulocyte % (Auto) 0.6 0-1 % Neutrophils (%) (Auto) 89.4 H 40.0-77.0 % Lymphocytes (%) (Auto) 7.4 L 21.0-51.0 % Monocytes (%) (Auto) 1.4 L 3.0-13.0 % Eosinophils (%) (Auto) 1.0 0.0-8.0 % Basophils (%) (Auto) 0.2 0.0-5.0 % Neutrophils # (Auto) 11.3 H 1.8-7.7 K/uL Lymphocytes # (Auto) 0.9 L 1.0-4.8 K/uL Monocytes # (Auto) 0.2 0.1-1.0 K/uL Eosinophils # (Auto) 0.13 0.00-0.70 K/uL Basophils # (Auto) 0.03 0.00-0.20 K/uL Absolute Immature Granulocyte (auto 0.08 0-1 K/uL Nucleated Red Blood Cells 0.0 0.0-0.19 % Sodium Level 133 L 136-145 mmol/L Potassium Level 4.2 3.5-5.1 mmol/L Chloride Level 99 L 101-111 mmol/L Carbon Dioxide Level 27 21-32 mmol/L Blood Urea Nitrogen 17 7-18 mg/dL Creatinine 1.3 0.5-1.3 mg/dL Glomerular Filtration Rate Calc 61 >90 mL/min Random Glucose 134 H 70-105 mg/dL Total Calcium 7.6 L 8.5-10.1 mg/dL Phosphorus Level 2.5 2.5-4.9 mg/dL Magnesium Level 1.90 1.80-2.40 mg/dL Total Bilirubin 0.5 0.2-1.0 mg/dL Aspartate Amino Transf (AST/SGOT) 19 10-37 U/L Alanine Aminotransferase (ALT/SGPT) 15 12-78 U/L Alkaline Phosphatase 71 50-136 U/L Total Protein 5.3 L 6.0-8.3 g/dL Albumin 1.5 L 3.5-5.0 g/dL Bedside Glucose Comment Notified Nurse Current Medications Medications (Trade) Dose Ordered Sig/Nathaly Route PRN Reason Start Time Stop Time Status Last Admin Dose Admin Acetaminophen (TYLenol 325MG TAB) 650 mg Q6H PRN PO MILD PAIN (1-3) 08/30/24 17:30 09/29/24 17:29 Betamethasone Valerate (Betamethasone Valerate) 1 APPLICATION TID TP 09/01/24 14:00 10/01/24 13:59 Cancel Clopidogrel Bisulfate (plaVIX 75MG) 75 mg DAILY PO 09/02/24 09:00 10/02/24 08:59 09/08/24 09:42 75 MG Dextrose (D50w) 50 ml AD PRN IV HYPOGLYCEMIA PROTOCOL 08/30/24 18:00 09/29/24 17:59 Glucagon (Glucagon 1mg Kit) 1 mg AD PRN IM HYPOGLYCEMIA PROTOCOL 08/30/24 18:00 09/29/24 17:59 Hydromorphone HCl (DiLAUDid 0.5MG INJ) 0.2 mg Q6H PRN IVP SEVERE PAIN (7-10) 08/30/24 17:30 09/04/24 17:29 DC Insulin Human Regular (humuLIN R 100 UNIT/ML 3ML) INSULIN SLIDING SCAL... ACHS SQ 08/30/24 21:00 09/29/24 20:59 09/07/24 19:56 2 UNIT Linezolid 300 ml @ 150 mls/hr Q12H IV 08/30/24 18:00 08/30/24 17:37 DC Linezolid 300 ml @ 150 mls/hr Q12H IV 08/30/24 20:00 09/09/24 19:59 09/08/24 09:41 150 MLS/HR Metformin HCl (glucoPHAGE) 1,000 mg BIDMEALS PO 09/07/24 17:00 10/07/24 16:59 09/08/24 09:42 1,000 MG Ondansetron HCl (zoFRAN 4MG INJ) 4 mg Q6H PRN IVP NAUSEA/VOMITING 08/30/24 17:30 09/29/24 17:29 Pharmacy Profile Note (Pharmacy Communication) 1 each ONCE MISC 08/30/24 17:30 09/01/24 07:16 DC 08/30/24 17:56 1 EACH Piperacillin Sod/ Tazobactam Sod (Zosyn 3.375gm+NS 50ml) 3.375 gm Q12H IVPB 08/30/24 21:00 08/31/24 06:42 DC 08/30/24 23:06 3.375 GM Piperacillin Sod/ Tazobactam Sod (Zosyn 3.375gm+NS 50ml) 3.375 gm Q8H IVPB 08/31/24 07:00 09/09/24 20:59 09/08/24 06:09 3.375 GM Potassium Chloride 100 ml @ 100 mls/hr AD PRN IV POTASSIUM PROTOCOL 09/06/24 08:00 10/06/24 07:59 Potassium Chloride (K-Dur/Klor-Con 20meq) 20 meq AD PRN PO POTASSIUM PROTOCOL 09/06/24 08:00 10/06/24 07:59 09/06/24 15:41 20 MEQ Potassium Chloride (KCl 10% Elixir 20meq/15ml) 20 meq AD PRN PO POTASSIUM PROTOCOL 09/06/24 08:00 10/06/24 07:59 Sodium Chloride 1,000 ml @ 75 mls/hr [id number] IV 08/30/24 20:00 09/01/24 12:55 DC 08/31/24 22:29 75 MLS/HR Thiamine HCl (Vitamin B-1) 100 mg Q24H IVP 08/30/24 18:00 09/01/24 16:47 DC 08/31/24 18:33 100 MG Thiamine HCl (Vitamin B-1) 100 mg Q24H IVP 09/01/24 20:00 10/01/24 19:59 09/07/24 19:56 100 MG Vitamin B Complex/ Vit C/Folic Acid (Nephrovite Tablet) 1 cap DAILY PO 09/01/24 09:00 10/01/24 08:59 09/08/24 09:42 1 CAP DIAGNOSTICS / RADIOLOGY: [ ] ASSESSMENT: Gas/wet gangrene of the left foot with extensively necrotic toes and underlying acute osteo-myelitis of multiple toes, POA Sepsis 2/2 complicated soft tissue infection of the left foot with underlying osteomyelitis)/Gram-negative bacteremia, POA Status post transmetatarsal amputation left foot 08/31/2024 Gram-negative bacteremia secondary secondary to Proteus mirabilis POA Urinary tract infection, secondary to E coli and Proteus mirabilis, POA Left foot wound culture positive for Proteus mirabilis Poorly controlled type 2 diabetes mellitus, POA Acute renal failure, POA Acute rhabdomyolysis, POA Anemia, POA Significant leukocytosis secondary to underlying septicemia, POA Moderate hyponatremia, POA Hx of right BKA, POA PLAN: Treatment: - Surgical: Transmetatarsal amputation of the left foot with partial medial cun eiformectomy and tendon transfer was performed. - Medications: Continued IV antibiotics with IV Zosyn and Zyvox. - ID recommends LTAC placement, continue antibiotics for four weeks - PICC line placed ready to use - Wound Care: Wound packing with betadine sulcos and complex layered primary wound closure. - case management to coordinate for LTAC placement, pending insurance approval Tests: - final wound culture results showing Proteus mirabilis and Staphylococcus aureus. - Blood cultures showed Proteus mirabilis; intraoperative cultures showed Proteus mirabilis and Staphylococcus aureus. - CT angiogram of bilateral lower extremities showed atherosclerosis and occlusions. Patient Education: - Discussed post-operative care and the importance of completing the antibiotic course. Follow-Up: - The patient is being followed by infectious disease for ongoing antibiotic management. - Physician Office Rep follow-up for management of peripheral arterial disease. - Nephrology follow-up for renal function monitoring. Disposition: - Continue monitoring in the hospital setting due to the complexity of the condition and post-operative status. NEURO: Minimize central acting medications as possible. Fall Precautions. Well lighted room through the day and minimize interruptions through the night to prevent acute delirium. PULMONARY: Supplemental 02 as needed BiPAP as necessary, for respiratory distress Titrate Fio2 to keep Spo2 > or = 90% DuoNebs and CPT as needed IS hourly while awake for pulmonary hygiene prn Out of bed to chair as tolerated Maintain aspiration precautions at all times CARDIOVASCULAR: Pending CT angio results Continue Plavix 75 mg p.o. daily Social consulted for help to obtain medications that we will need to be taking uninterrupted for at least three months before Dr. Villalpando can proceed with any invasive studies Following electrician ship's recommendations Follow hemodynamics. Vital signs per facility protocol GI & NUTRITION: Continue nutritional support Aspirations precautions Prokinetic agents and laxatives as needed KIDNEYS & ELECTROLYTES: Strict monitoring of intake and output Daily weights Avoid nephrotoxic agents Monitor electrolytes and replace as needed Goal urine output of 30mL/hr or 0.5mL/kg/hr Medications to be dosed according to renal function. Avoid contrast if possible ENDOCRINE: Maintain blood glucose between 100-180 at all times. Insulin sliding scale for blood glucose management Hypoglycemia and hyperglycemia protocol in place INFECTIOUS DISEASE: Trend temperature, WBC and procalcitonin level Follow cultures, deescalate antibiotics as soon as possible. Panculture if new onset fever HEMATOLOGY & COAGULATION: Monitor H&H. Keep Hgb > 7 Transfuse 1 unit of PRBC for Hgb < 7 Transfuse 1 pack of platelets of platelets < 20, 000 Watch for any signs and symptoms of bleeding SKIN: Pressure ulcer prevention per facility protocol Specialty mattress as needed ORTHO/REHAB Continue PT/OT PRN: MEDICATIONS Tylenol 650 mg po every 4 hrs for fever zofran 4 mg IV every 6 hrs for n/v Hydralazine 5 mg IV every 4 hrs systolic pressure > 160 bowel regiment: lactulose 20 gm PO BID PRN constipation Supportive measures: PRN Treatment - Add when necessary meds for nausea, vomiting, pain, constipation, insomnia. DVT/GI prophylaxis- Continue SCDs Full CODE STATUS Disposition: LTAC placement All questions answered time spent: > 35 min This document was generated in part using voice recognition software, occasional wrong word or sound alike substitutions may have occurred due to the inherent limitations of voice recognition software. Read the chart carefully and recognize using context, where the substitutions have occurred. Although every effort was made to edit the content, optometry assistant and typing errors may occur This case was discussed with Dr. Sierra and above plan was formulated ATTESTATION BY PHYSICIAN I have seen and examined the patient. I reviewed the documentation, medical decision making, and treatment plan as noted by the mid-level provider above. I agree with the findings and plan of care. Cristela Sierra MD ATTESTATION BY PHYSICIAN I have seen and examined the patient. I reviewed the documentation, medical decision making, and treatment plan as noted by the mid-level provider above. I agree with the findings and plan of care. JORDAN Galvan MD ACCOUNTING CLERK Sep 08, 2024 14:02
--- NOTE | 2024-09-08 15:20 | PN ---
FOLLOWUP PROGRESS NOTE SUBJECTIVE: A 64-year-old male who has had a prolonged hospital course The patient with a history of diabetes mellitus and hypertension. He has a history of vascular disease, status post BKA in the past. He presented to the hospital with underlying wounds to the foot. The patient was started on broad-spectrum IV antibiotics. The patient has had foot surgery. Laboratory values revealed an elevated BUN and creatinine, and the patient is being seen as a followup visit for all of the above. REVIEW OF SYSTEMS: CONSTITUTIONAL: He is complaining of pain. HEENT: No change in vision. No change in hearing. CARDIOVASCULAR: There is no chest pain or palpitation. PULMONARY: There is no shortness of breath. GASTROINTESTINAL: The patient is tolerating a diet. MUSCULOSKELETAL: Complaints of weakness. PHYSICAL EXAMINATION: VITAL SIGNS: Blood pressure is 109/63, pulse in the 80s. He is afebrile. GENERAL: Chronically ill male, elderly, lying in bed on the medical floor. HEENT: Head is atraumatic. Pupils are equal, roving to light. Oropharynx is without exudate. Nares clear. NECK: There is no JVP. There is no thyromegaly. No mass. CARDIOVASCULAR: Regular. There is no S3 or S4 gallop. LUNGS: Coarse with equal thoracic movement. ABDOMEN: Soft and nontender. EXTREMITIES: Reveal no clubbing, no cyanosis. NEUROLOGICAL: He is awake. He is at his baseline. LABORATORY DATA: Sodium 133, potassium 4.2, BUN 17, creatinine is 1.3. Hemoglobin 7.3, hematocrit 22, white count 12,000. IMPRESSION: * Acute on chronic renal failure. * Nonhealing wounds. * Diabetes mellitus. * Hypertension. * Anemia. PLAN: The patient's creatinine has stabilized while in the hospital. The patient with persistent hyponatremia and he is encouraged on free water restriction. The patient remains on the broad-spectrum IV antibiotics. Workup is ongoing per Podiatry. We will continue to follow closely. The patient with multiple questions, all of which were answered. TID: [id number] RECEIPT: [id number]
[2024-09-08 16:00] VITALS: BP 111/68; PULSE 84; RESP 16; TEMP 97.7
--- NOTE | 2024-09-08 18:15 | PN ---
INFECTIOUS DISEASE PROGRESS NOTE Date of Service: Sep 08, 2024 SUBJECTIVE: This is a 64 year old male patient who was seen today at bedside in room 412. Patient is awake, alert and oriented x3. Patient is having lunch and no reports of nausea or vomiting. Patient remaining afebrile with a temperature of 97.9 and a WBC of 12.6. Patient is status post left TMA on 08/31/2024 and pending insurance approval to LTAC. Will continue on Zosyn and linezolid IV. PHYSICAL EXAM EYES: Anicteric. Pupils equal and reactive. HENT: No oral thrush seen, moist Oral mucosa. NECK: Supple, no JVD or thyromegaly. LUNGS: Good air entry. No rales, no rhonchi. CARDIOVASCULAR: S1, S2 regular. No murmur heard. ABDOMEN: Soft, non tender, bowel sounds present, no organomegaly. CENTRAL NERVOUS SYSTEM: Awake, alert, oriented x 3. SKIN: No rashes, no swelling. LYMPHATICS: No peripheral lymphadenopathy MUSCULOSKELETAL: No joint swelling, erythema or tenderness. EXTREMITIES: Dry dressing to left lower extremity. Left TMA. History of right BKA BACK: No deformity, no pressure ulcer. GENITOURINARY: No dysuria or hematuria. Vital Sign (Last 12 Hours) 09/08/24 09/08/24 09/08/24 09/08/24 08:00 08:00 11:53 16:00 Temp 97.9 97.5 97.7 Pulse 85 85 84 Resp 16 16 16 B/P (MAP) 109/63 130/74 111/68 Pulse Ox 99 99 98 98 O2 Delivery Room Air* Room Air Room Air Room Air O2 Flow Rate 0 FiO2 21 21 21 Intake & Output (last 24hrs) 09/07/24 09/07/24 09/08/24 15:00 23:00 07:00 Intake Total 240 ml 340.0 ml 400.0 ml Balance 240 ml 340.0 ml 400.0 ml LABS: Laboratory: Test 09/08/24 16:33 09/08/24 05:55 09/07/24 16:28 Range/Units Whole Blood Glucose 142 H 70-110 MG/DL White Blood Count 12.6 H 4.8-10.8 K/uL Red Blood Count 2.44 L 4.50-6.20 MIL/uL Hemoglobin 7.3 L 14.0-18.0 g/dL Hematocrit 22.7 L 42-54 % Mean Corpuscular Volume 93.0 79-99 fL Mean Corpuscular Hemoglobin 29.9 27.0-33.0 pg Mean Corpuscular Hemoglobin Concent 32.2 32.0-36.0 g/dL Red Cell Distribution Width 13.5 11.0-15.5 % Platelet Count 236 130-400 K/uL Mean Platelet Volume 9.4 7.5-10.5 fL Immature Granulocyte % (Auto) 0.6 0-1 % Neutrophils (%) (Auto) 89.4 H 40.0-77.0 % Lymphocytes (%) (Auto) 7.4 L 21.0-51.0 % Monocytes (%) (Auto) 1.4 L 3.0-13.0 % Eosinophils (%) (Auto) 1.0 0.0-8.0 % Basophils (%) (Auto) 0.2 0.0-5.0 % Neutrophils # (Auto) 11.3 H 1.8-7.7 K/uL Lymphocytes # (Auto) 0.9 L 1.0-4.8 K/uL Monocytes # (Auto) 0.2 0.1-1.0 K/uL Eosinophils # (Auto) 0.13 0.00-0.70 K/uL Basophils # (Auto) 0.03 0.00-0.20 K/uL Absolute Immature Granulocyte (auto 0.08 0-1 K/uL Nucleated Red Blood Cells 0.0 0.0-0.19 % Sodium Level 133 L 136-145 mmol/L Potassium Level 4.2 3.5-5.1 mmol/L Chloride Level 99 L 101-111 mmol/L Carbon Dioxide Level 27 21-32 mmol/L Blood Urea Nitrogen 17 7-18 mg/dL Creatinine 1.3 0.5-1.3 mg/dL Glomerular Filtration Rate Calc 61 >90 mL/min Random Glucose 134 H 70-105 mg/dL Total Calcium 7.6 L 8.5-10.1 mg/dL Phosphorus Level 2.5 2.5-4.9 mg/dL Magnesium Level 1.90 1.80-2.40 mg/dL Total Bilirubin 0.5 0.2-1.0 mg/dL Aspartate Amino Transf (AST/SGOT) 19 10-37 U/L Alanine Aminotransferase (ALT/SGPT) 15 12-78 U/L Alkaline Phosphatase 71 50-136 U/L Total Protein 5.3 L 6.0-8.3 g/dL Albumin 1.5 L 3.5-5.0 g/dL Bedside Glucose Comment Notified Nurse ASSESSMENT: Left foot diabetic ulcer with polymicrobial infection, possible osteomyelitis, status post transmetatarsal amputation on 08/31/2024. Proteus mirabilis bacteremia. Urinary tract infection with ESBL, E coli and Proteus mirabilis. Leukocytosis, resolving. Peripheral Artery disease. Diabetes mellitus Chronic kidney disease. Chronic Anemia. PLAN: Continue linezolid IV. Continue Zosyn. Continue pain management. Continue antidiabetics. Continue wound care. Will need 4 weeks of IV antibiotics. Pending insurance approval to LTAC. This case was reviewed and discussed with my supervising physician and the above assessment and plan was formulated and agreed upon. ATTESTATION BY PHYSICIAN I have seen and examined the patient. I reviewed the documentation, medical decision making, and treatment plan as noted by the mid-level provider above. I agree with the findings and plan of care. SUSANNE BETTENCOURT MD, [facility] Sep 08, 2024 18:15
[2024-09-08 20:00] VITALS: BP 115/63; PULSE 85; RESP 20; TEMP 97.4; O2SAT 100
[2024-09-09] VITALS (7 sets, daily range): BP systolic 96–129; BP diastolic 55–64; PULSE 78–86; RESP 16–20; TEMP 97.6–98.1; O2SAT 96–100
--- NOTE | 2024-09-09 02:44 | PN ---
NEPHROLOGY NOTE SUBJECTIVE: The patient has multiple problems including kidney dysfunction, anemia, diabetes, hypertension, peripheral vascular disease, left foot ulcer with left foot TMA, right below-knee amputation, severe anemia, and history of sepsis and bacteremia. The patient with cardiomyopathy, rhabdomyolysis and other comorbidities. The patient also has a low sodium. Being admitted with all these issues, the patient has been transferred to a long-term medical care facility for ongoing wound care and antibiotics. No other associated findings. No other aggravating or relieving factors. PHYSICAL EXAMINATION: GENERAL: Pale, in no other distress. VITAL SIGNS: Blood pressure 118/70, respiratory rate is 18. HEENT: Head is atraumatic, normocephalic. Pupils are round and reactive. Sclerae are anicteric. Conjunctivae not pale. Oral mucosa is not dry. NECK: Supple. No masses or bruits. Thyroid is palpable. Neck has no bruits. CHEST: Shows equal thoracic percussion note being resonant in all areas. CARDIAC: Regular rhythm. No rub. No S3, no S4. No parasternal heave. ABDOMEN: No guarding or tenderness. Bowel sounds are normoactive. No free fluid. NEUROLOGIC: Intact. LABORATORY DATA: Labs have been reviewed. Creatinine is 1.3, low sodium. Hemoglobin . Imaging studies are personally reviewed. Old records are reviewed. PROBLEMS: Pyzgn-il-yvxnasl renal failure, underlying peripheral vascular disease, right below-knee amputation, left foot transmetatarsal amputation, diabetes, hypertension, hyperlipidemia, anemia, history of rhabdomyolysis and bacteremia sepsis. PLAN: To continue supportive care. Follow up on renal function. IV antibiotic. Wound care will be continued. Avoid nephrotoxic antibiotic. Follow up on blood pressure and urine output. Nonsteroidal drugs to be avoided. Doses of medicine to be adjusted and will be following up closely. Please avoid contrast. I have discussed with other team physicians. IV Dilaudid 0.5 q. 6 hours can be used for pain. Thank you for this patient. The patient was seen multiple times today. TID: [id number] RECEIPT: [id number]
[2024-09-09 05:15] LABS: IMMATURE GRANULOCYTE ABSOLUTE 0.06 K/uL (0-1); NUCLEATED RED BLOOD CELLS 0.0 % (0.0-0.19); PLATELET COUNT (AUTO) 226 K/uL (130-400); RED BLOOD CELL COUNT(AUTO) 2.35 MIL/uL (4.50-6.20); RED CELL DISTRIBUTION WIDTH 13.5 % (11.0-15.5); WHITE BLOOD COUNT (AUTO) 10.5 K/uL (4.8-10.8)
[2024-09-09 05:35] LABS: ASPARTATE AMINOTRANSFERASE 14.0 U/L (10-37); CREATININE 1.3 mg/dL (0.5-1.3); GLOMERULAR FILTR. RATE CALC 61.0 mL/min (>90); GLUCOSE,RANDOM 136.0 mg/dL (70-105); SODIUM SERUM 133.0 mmol/L (136-145); TOTAL PROTEIN, SERUM 5.2 g/dL (6.0-8.3); UREA NITROGEN, BLOOD 22.0 mg/dL (7-18)
--- NOTE | 2024-09-09 10:45 | PN ---
[facility] PROGRESS NOTE Date of Service: Sep 09, 2024 Time of Service: 10:[address] Knox SUBJECTIVE: This is a 63-year-old male with underlying history of poorly controlled type 2 diabetes mellitus, peripheral arterial disease, prior history of right belo w-the-knee amputation in 2020 due to right foot gangrene and necrotizing fasciitis. Patient presented to the emergency room August 30, 2024, with a chronic wounds involving toes to the foot, that according to him over the last several weeks has been getting more necrotic and foul smelling. He also reported having fever and chills. On presentation to the hospital, patient was noted to be febrile with T-max of 100.0 F, heart rate of 102, blood pressure of 81/50. [place] [address], hemoglobin of 10.3, platelet count of 879214. BMP remarkable for sodium of 125, potassium 5.1, chloride of 90, BUN of 52, cr eatinine 2.0, blood glucose of 180, CK of 436 cardiac panel showed troponin of six. Patient admitted for further treatment and management of wet gangrene of the right foot with suspected chronic osteomyelitis of the toes. Patient received IV fluids and IV antibiotics. Consultation with Podiatry, Infectious Disease requested. 08/31 patient remains admitted to the PCU, BP 130/63, afebrile, saturating normal on room air. Leukocytosis improving, today WBC 14.9. Creatinine better at 1.6. Results of blood culture Gram-negative rods, positive in two of two sets. X- ray of the left foot status post interval amputation great toe, 2nd toe, 3rd toe with soft tissue edema subcutaneous emphysema overlying the 1st metatarsal, possible osteomyelitis of the 3rd and 4th proximal phalanx. Arterial ultrasound mild intimal wall thickening in both lower limb arteries, both lower limb arteries demonstrate biphasic waveform in all arteries other family left po sterior tibial, anterior tibial and dorsalis pedis which demonstrate monophasic waveform, no flow-limiting stenosis. Renal ultrasound normal kidneys, no hydronephrosis, mild debris is noted in the urinary bladder, cystitis should be excluded. Patient on broad-spectrum IV antibiotics with Zosyn and linezolid, ID and podiatry consulted, input noted and appreciated. Cardiology consultation requested as the patient with peripheral arterial disease. We will follow input and recommendation. Renal ultrasound normal, no hydronephrosis, creatinine improving, nephrology consulted, we will follow input and recommendation. Grant velasco my visit the patient is comfortable, back in the room from having debridement, eating lunch, tolerating well, getting good pain control with current medical management, at bedside, updated. 09/01 Patient presented to the emergency room August 30, 2024, with a chronic wounds involving toes to the left foot. X-ray of the left foot status post interval amputation great toe, 2nd toe, 3rd toe with soft tissue edema subcutaneous emphysema overlying the 1st metatarsal, possible osteomyelitis of the 3rd and 4th proximal phalanx. Patient is status post transmetatarsal amputation the left foot 08/31/24. Tolerated the procedure well. Results of blood culture positive for Proteus mirabilis. Urine culture [id number] CFU, identification and susceptibility process. Patient Zosyn IV, continue to follow podiatry and ID input and recommendation. During my visit the patient is comfortable, eating lunch, tolerating well, alert oriented x3, getting IV antibiotics, denied chest pain, shortness shortness for breath, no nausea, no vomiting, getting good pain control with current medical management, plan of care discussed with the patient and the at bedside, all questions answered. Agreed and understood all the information provided. 09/02 Patient presented to the emergency room August 30, 2024, with a chronic wounds involving toes to the left foot. X-ray of the left foot status post interval amputation great toe, 2nd toe, 3rd toe with soft tissue edema subcutaneous emphysema overlying the 1st metatarsal, possible osteomyelitis of the 3rd and 4th proximal phalanx. Patient is status post transmetatarsal amputation the left foot 08/31/24. Tolerated the procedure well. Results of blood culture positive for Proteus mirabilis. Wound culture from the left foot positive for Proteus mirabilis, urine culture positive for E coli and Proteus mirabilis. Patient remains on broad-spectrum IV antibiotics with Zosyn until systolic IV, continue to follow podiatry and ID input and recommendation, continue local wound care. [facility] for continuation of medical care. During my visit the patient remains comfortably in bed, alert oriented x3, case discussed with the RN, no acute events overnight, plan to downgraded to the medical floor. 09/03 Seen and examined. Vitals are stable. White count is 16.5, H&H 8.3/25.3, CMP is stable. S/p TMA of Left foot with partial medial cuneiformectomy, transfer of the extensor hallucis longus to the flexor hallucis longus tendon, complex layered primary wound closure of a highly modified 22cm surgical incision by Dr. Lim on 08/31/24. Initial blood cultures are growing Proteus mirabilis, repeat blood cultures negative so far, intraoperative cultures positive for Proteus mirabilis and Staphylococcus aureus. Urine cultures growing ESBL E coli and Proteus mirabilis. CT angio results are pending. No incidences reported overnight. 09/04 The patient was seen and examined in the room this morning. He is alert oriented x3. denies pain at this time. Patient is postop day 4. S/P transmetatarsal amputation of the left foot with partial medial cuneiform anti and tendon transfer performed by Dr. Lim. He continues with IV antibiotics. Wound care being managed by Dr. Lim. 09/05 Today on bedside evaluation patient was found awake alert and oriented x 3. The power chart reviewed, vital signs, laboratory tests, imaging test and medications have been reviewed. Latest vitals are stable, white count is elevated at 73.7, H&H 7.5/22.7, renal function remains slightly elevated BUN at 19, creatinine 1.4. Case management is coordinating for LTAC placement. 09/06 Seen and examined. Vital signs are stable, afebrile. White count is downtrending now at 14.2, H&H improving 8/24.2, CMP is stable. No incidences reported overnight. Pending LTAC placement. 09/07 patient was seen by nurse practitioner physician during rounding in room 412. At this moment patient is pending discharge to [facility] once insurance approved.. WBC 13.1 hemoglobin 7.4 hematocrit 22.9. No incidents reported overnight. We will continue to monitor patient in the meantime. A.m. labs 09/08 patient was seen by nurse practitioner and during rounding. Patient is pending discharge to [facility] once insurance approved. WBC are trending down. All the labs reviewed by CUSTOMER OPERATIONS MANAGER. A.m. labs. 09/09/24 patient was seen by nurse practitioner and physician during rounding. Case management is working on disposition to [facility] once insurance approved. WB C 10.5. Labs reviewed by CUSTOMER OPERATIONS MANAGER. Jose Alfredo labs. Continue to monitor patient REVIEW OF SYSTEMS CONSTITUTIONAL: fevers, chills, malaise, poor oral intake NEUROLOGICAL: Denies headache, amaurosis fugax, motor weakness, sensory deficit, vertigo/spinning sensation, gait abnormalities, or tremors. ENT: No hearing loss, otalgia, otorrhea, rhinitis, rhinorrhea, hoarseness, or sore throat. CARDIOVASCULAR: Denies any exertional angina, dyspnea on exertion, orthopnea, paroxysmal nocturnal dyspnea, palpitations, life-threatening arrhythmias, claudication. PULMONARY: Denies any shortness of breath, cough, phlegm/sputum, hemoptysis, pleuritic chest pain. SLEEP: Denies morning headaches, daytime somnolence or napping. Denies dif ficulty falling asleep, staying asleep, waking from sleep. Denies knowledge of snoring. GASTROINTESTINAL: Denies any type of dysphagia to either liquids or solids. Denies nausea, vomiting, pyrosis, early satiety, abdominal pain, diarrhea, constipation, or changes in stool consistency or caliber. Denies coffee-ground emesis, hematemesis, hematochezia, or melanotic stools. GENITOURINARY: Denies frequency, urgency, nocturia, hematuria or incontinence (Storage/Irritative symptoms.) Low urinary stream, straining to void, urinary intermittency or hesitancy, splitting of the voiding stream, terminal dribbling. ENDOCRINOLOGIC: Hx of type 2 Diabetes mellitus HEMATOLOGIC: Denies thrombophilia/previous clots, or coagulopathy/bleeding disorders. ONCOLOGIC: Denies personal history of malignancy. DERMATOLOGIC: foul smelling necrotic toes of the left foot with non healing wounds PSYCHIATRIC: Denies any suicidal or homicidal ideation. Denies hallucinations. PHYSICAL EXAM GENERAL APPEARANCE: The patient is awake, alert, and oriented, in no acute cardiopulmonary distress. NEUROLOGICAL: Cranial nerves II-XII grossly intact. Motor is 5/5 in bilateral upper and lower extremities proximal to distal. No sensory deficits. HEENT: Face is symmetric. Pupils are equal and reactive. Extraocular movements are intact. NECK: Supple. No JVD. No thyromegaly. No submental, submandibular, pre- /postauricular, occipital or supraclavicular lymphadenopathy. CHEST: Normal chest expansion. No Telemetry. LUNGS: Absence of any rales, rhonchi or any wheezing. CARDIOVASCULAR: Regular. S1 and S2 normal. No appreciable rubs, murmurs or gallops. ABDOMEN: Soft, nontender, and nondistended. There is no rebound, voluntary guarding, or rigidity. : Deferred. No Sandhu. EXTREMITIES: Left foot noted to have extremely foul-smelling wound with necroti c toes noted from 2nd two fifth digit, area of erythema and surrounding cellulitic changes noted Vital Signs (last 8hr) Date Time Temp Pulse Resp B/P (MAP) Pulse Ox O2 Delivery O2 Flow Rate FiO2 09/09/24 08:00 100 Room Air* 0 21 09/09/24 07:47 98.1 86 20 96/55 100 Room Air 09/09/24 04:00 97.9 78 20 129/64 94 Room Air LABS: Laboratory: Test 09/09/24 05:14 09/09/24 05:00 09/08/24 05:55 09/07/24 16:28 Range/Units Whole Blood Glucose 132 H 70-110 MG/DL White Blood Count 10.5 4.8-10.8 K/uL Red Blood Count 2.35 L 4.50-6.20 MIL/uL Hemoglobin 7.1 L 14.0-18.0 g/dL Hematocrit 21.4 L 42-54 % Mean Corpuscular Volume 91.1 79-99 fL Mean Corpuscular Hemoglobin 30.2 27.0-33.0 pg Mean Corpuscular Hemoglobin Concent 33.2 32.0-36.0 g/dL Red Cell Distribution Width 13.5 11.0-15.5 % Platelet Count 226 130-400 K/uL Mean Platelet Volume 9.5 7.5-10.5 fL Immature Granulocyte % (Auto) 0.6 0-1 % Neutrophils (%) (Auto) 87.5 H 40.0-77.0 % Lymphocytes (%) (Auto) 9.6 L 21.0-51.0 % Monocytes (%) (Auto) 1.0 L 3.0-13.0 % Eosinophils (%) (Auto) 1.0 0.0-8.0 % Basophils (%) (Auto) 0.3 0.0-5.0 % Neutrophils # (Auto) 9.2 H 1.8-7.7 K/uL Lymphocytes # (Auto) 1.0 1.0-4.8 K/uL Monocytes # (Auto) 0.1 0.1-1.0 K/uL Eosinophils # (Auto) 0.10 0.00-0.70 K/uL Basophils # (Auto) 0.03 0.00-0.20 K/uL Absolute Immature Granulocyte (auto 0.06 0-1 K/uL Nucleated Red Blood Cells 0.0 0.0-0.19 % Sodium Level 133 L 136-145 mmol/L Potassium Level 4.4 3.5-5.1 mmol/L Chloride Level 101 101-111 mmol/L Carbon Dioxide Level 25 21-32 mmol/L Blood Urea Nitrogen 22 H 7-18 mg/dL Creatinine 1.3 0.5-1.3 mg/dL Glomerular Filtration Rate Calc 61 >90 mL/min Random Glucose 136 H 70-105 mg/dL Total Calcium 7.6 L 8.5-10.1 mg/dL Magnesium Level 2.00 1.80-2.40 mg/dL Total Bilirubin 0.4 0.2-1.0 mg/dL Aspartate Amino Transf (AST/SGOT) 14 10-37 U/L Alanine Aminotransferase (ALT/SGPT) 10 #L 12-78 U/L Alkaline Phosphatase 63 50-136 U/L Total Protein 5.2 L 6.0-8.3 g/dL Albumin 1.5 L 3.5-5.0 g/dL Phosphorus Level 2.5 2.5-4.9 mg/dL Bedside Glucose Comment Notified Nurse Current Medications Medications (Trade) Dose Ordered Sig/Nathaly Route PRN Reason Start Time Stop Time Status Last Admin Dose Admin Acetaminophen (TYLenol 325MG TAB) 650 mg Q6H PRN PO MILD PAIN (1-3) 08/30/24 17:30 09/29/24 17:29 Betamethasone Valerate (Betamethasone Valerate) 1 APPLICATION TID TP 09/01/24 14:00 10/01/24 13:59 Cancel Clopidogrel Bisulfate (plaVIX 75MG) 75 mg DAILY PO 09/02/24 09:00 10/02/24 08:59 09/09/24 08:51 75 MG Dextrose (D50w) 50 ml AD PRN IV HYPOGLYCEMIA PROTOCOL 08/30/24 18:00 09/29/24 17:59 Glucagon (Glucagon 1mg Kit) 1 mg AD PRN IM HYPOGLYCEMIA PROTOCOL 08/30/24 18:00 09/29/24 17:59 Hydromorphone HCl (DiLAUDid 0.5MG INJ) 0.2 mg Q6H PRN IVP SEVERE PAIN (7-10) 08/30/24 17:30 09/04/24 17:29 DC Insulin Human Regular (humuLIN R 100 UNIT/ML 3ML) INSULIN SLIDING SCAL... ACHS SQ 08/30/24 21:00 09/29/24 20:59 09/07/24 19:56 2 UNIT Linezolid 300 ml @ 150 mls/hr Q12H IV 08/30/24 18:00 08/30/24 17:37 DC Linezolid 300 ml @ 150 mls/hr Q12H IV 08/30/24 20:00 09/09/24 19:59 09/09/24 08:50 150 MLS/HR Metformin HCl (glucoPHAGE) 1,000 mg BIDMEALS PO 09/07/24 17:00 10/07/24 16:59 09/09/24 08:51 1,000 MG Ondansetron HCl (zoFRAN 4MG INJ) 4 mg Q6H PRN IVP NAUSEA/VOMITING 08/30/24 17:30 09/29/24 17:29 Pharmacy Profile Note (Pharmacy Communication) 1 each ONCE MISC 08/30/24 17:30 09/01/24 07:16 DC 08/30/24 17:56 1 EACH Piperacillin Sod/ Tazobactam Sod (Zosyn 3.375gm+NS 50ml) 3.375 gm Q12H IVPB 08/30/24 21:00 08/31/24 06:42 DC 08/30/24 23:06 3.375 GM Piperacillin Sod/ Tazobactam Sod (Zosyn 3.375gm+NS 50ml) 3.375 gm Q8H IVPB 08/31/24 07:00 09/09/24 20:59 09/09/24 06:05 3.375 GM Potassium Chloride 100 ml @ 100 mls/hr AD PRN IV POTASSIUM PROTOCOL 09/06/24 08:00 10/06/24 07:59 Potassium Chloride (K-Dur/Klor-Con 20meq) 20 meq AD PRN PO POTASSIUM PROTOCOL 09/06/24 08:00 10/06/24 07:59 09/06/24 15:41 20 MEQ Potassium Chloride (KCl 10% Elixir 20meq/15ml) 20 meq AD PRN PO POTASSIUM PROTOCOL 09/06/24 08:00 10/06/24 07:59 Sodium Chloride 1,000 ml @ 75 mls/hr [id number] IV 08/30/24 20:00 09/01/24 12:55 DC 08/31/24 22:29 75 MLS/HR Thiamine HCl (Vitamin B-1) 100 mg Q24H IVP 08/30/24 18:00 09/01/24 16:47 DC 08/31/24 18:33 100 MG Thiamine HCl (Vitamin B-1) 100 mg Q24H IVP 09/01/24 20:00 10/01/24 19:59 09/08/24 19:56 100 MG Vitamin B Complex/ Vit C/Folic Acid (Nephrovite Tablet) 1 cap DAILY PO 09/01/24 09:00 10/01/24 08:59 09/09/24 08:52 1 CAP DIAGNOSTICS / RADIOLOGY: [ ] ASSESSMENT: Gas/wet gangrene of the left foot with extensively necrotic toes and underlying acute osteo-myelitis of multiple toes, POA Sepsis 2/2 complicated soft tissue infection of the left foot with underlying osteomyelitis)/Gram-negative bacteremia, POA Status post transmetatarsal amputation left foot 08/31/2024 Gram-negative bacteremia secondary secondary to Proteus mirabilis POA Urinary tract infection, secondary to E coli and Proteus mirabilis, POA Left foot wound culture positive for Proteus mirabilis Poorly controlled type 2 diabetes mellitus, POA Acute renal failure, POA Acute rhabdomyolysis, POA Anemia, POA Significant leukocytosis secondary to underlying septicemia, POA Moderate hyponatremia, POA Hx of right BKA, POA PLAN: Treatment: - Surgical: Transmetatarsal amputation of the left foot with partial medial cuneiformectomy and tendon transfer was performed. - Medications: Continued IV antibiotics with IV Zosyn and Zyvox. - ID recommends LTAC placement, continue antibiotics for four weeks - PICC line placed ready to use - Wound Care: Wound packing with betadine sulcos and complex layered primary wound closure. - case management to coordinate for LTAC placement, pending insurance approval Tests: - final wound culture results showing Proteus mirabilis and Staphylococcus aureus. - Blood cultures showed Proteus mirabilis; intraoperative cultures showed Proteus mirabilis and Staphylococcus aureus. - CT angiogram of bilateral lower extremities showed atherosclerosis and occlusions. Patient Education: - Discussed post-operative care and the importance of completing the antibiotic course. Follow-Up: - The patient is being followed by infectious disease for ongoing antibiotic management. - Project Safety Manager follow-up for management of peripheral arterial disease. - Nephrology follow-up for renal function monitoring. Disposition: - Continue monitoring in the hospital setting due to the complexity of the condition and post-operative status. ATTESTATION BY PHYSICIAN I have seen and examined the patient. I reviewed the documentation, medical decision making, and treatment plan as noted by the mid-level provider above. I agree with the findings and plan of care. JORDAN Galvan MD BINDING PRINTER Sep 09, 2024 10:45
--- NOTE | 2024-09-09 11:50 | NUR ---
Shannon auth pending Per Madai tse remains pending at this time. AUTOMATIC LUMP MAKING MACHINE TENDER notified
[2024-09-09] MEDS ORDERED: COMPOUND IV MISC 1 EACH IVSOLN MISC PRN (12:00)
[2024-09-09] MEDS ORDERED: COMPOUND IV REFRIGERATED 1 EACH IVSOLN MISC PRN (12:00)
--- NOTE | 2024-09-09 14:31 | PN ---
FOLLOWUP PROGRESS NOTE SUBJECTIVE: A 64-year-old male with a history of diabetes mellitus and hypertension. The patient with history of nonhealing wounds. The patient with previous BKA. The patient presented to the hospital and found to have significant cellulitis. The patient was started on broad-spectrum IV antibiotics as well as local wound care. The patient has had acute on chronic renal function in the hospital. Creatinine has been elevated and the patient is being seen as a followup visit up for all of the above. REVIEW OF SYSTEMS: CONSTITUTIONAL: The patient is feeling weak and tired. HEENT: No change of vision. No change in hearing. CARDIOVASCULAR: There is no current chest pain or palpitations. PULMONARY: Denies any shortness of breath. GASTROINTESTINAL: Tolerating a diet. MUSCULOSKELETAL: As described above. PHYSICAL EXAMINATION: VITAL SIGNS: Blood pressure 129/64, pulse in the 70s, afebrile. GENERAL: Chronically ill male, much older than appearing. HEENT: Head is atraumatic. Pupils are equal, roving to light. Oropharynx is without exudate. Nares clear. NECK: There is no JVP. There is no thyromegaly. CARDIOVASCULAR: Regular. There is no S3 or S4 gallop. LUNGS: Coarse with equal thoracic movement. ABDOMEN: Soft, nondistended and nontender. EXTREMITIES: The wounds are all noted. LABORATORY DATA: Hemoglobin 7, hematocrit 21. Sodium 133, BUN 22, creatinine is 1.3. IMPRESSION: * Acute on chronic renal failure. * Nonhealing wounds. * Diabetes mellitus. * Hypertension. * Anemia. PLAN: The patient's renal function continues to stabilize. The patient does have hyponatremia and has been encouraged in regards to the fluid restriction. The patient remains on the broad-spectrum IV antibiotics as well as the local wound care. The patient will be given a dose of IV iron for the anemia. We will continue to follow closely. All labs can be repeated in the morning. TID: [id number] RECEIPT: [id number]
--- NOTE | 2024-09-09 16:00 | PN ---
INFECTIOUS DISEASE PROGRESS NOTE Date of Service: Sep 09, 2024 SUBJECTIVE: This is a 64 year old male patient who was seen today at bedside in room 412. Patient is awake, alert and oriented x3. Patient is resting comfortably in bed. Patient is status post left TMA on 08/31/2024 and remains afebrile, temperature is 97.5. Will continue on Zosyn and linezolid IV. Pending insurance approval to [facility]. PHYSICAL EXAM EYES: Anicteric. Pupils equal and reactive. HENT: No oral thrush seen, moist Oral mucosa. NECK: Supple, no JVD or thyromegaly. LUNGS: Good air entry. No rales, no rhonchi. CARDIOVASCULAR: S1, S2 regular. No murmur heard. ABDOMEN: Soft, non tender, bowel sounds present, no organomegaly. CENTRAL NERVOUS SYSTEM: Awake, alert, oriented x 3. SKIN: No rashes, no swelling. LYMPHATICS: No peripheral lymphadenopathy MUSCULOSKELETAL: No joint swelling, erythema or tenderness. EXTREMITIES: Dry dressing to left lower extremity. Left TMA. History of right BKA BACK: No deformity, no pressure ulcer. GENITOURINARY: No dysuria or hematuria. Vital Sign (Last 12 Hours) 09/09/24 09/09/24 09/09/24 09/09/24 04:00 07:47 08:00 11:22 Temp 97.9 98.1 97.5 Pulse 78 86 83 Resp 20 20 16 B/P (MAP) 129/64 96/55 97/57 Pulse Ox 94 100 100 96 O2 Delivery Room Air Room Air Room Air* Room Air O2 Flow Rate 0 FiO2 21 Intake & Output (last 24hrs) 09/08/24 09/08/24 09/09/24 15:00 23:00 07:00 Intake Total 240 ml 400.0 ml Balance 240 ml 400.0 ml LABS: Laboratory: Test 09/09/24 15:38 09/09/24 05:00 09/08/24 05:55 09/07/24 16:28 Range/Units Whole Blood Glucose 132 H 70-110 MG/DL White Blood Count 10.5 4.8-10.8 K/uL Red Blood Count 2.35 L 4.50-6.20 MIL/uL Hemoglobin 7.1 L 14.0-18.0 g/dL Hematocrit 21.4 L 42-54 % Mean Corpuscular Volume 91.1 79-99 fL Mean Corpuscular Hemoglobin 30.2 27.0-33.0 pg Mean Corpuscular Hemoglobin Concent 33.2 32.0-36.0 g/dL Red Cell Distribution Width 13.5 11.0-15.5 % Platelet Count 226 130-400 K/uL Mean Platelet Volume 9.5 7.5-10.5 fL Immature Granulocyte % (Auto) 0.6 0-1 % Neutrophils (%) (Auto) 87.5 H 40.0-77.0 % Lymphocytes (%) (Auto) 9.6 L 21.0-51.0 % Monocytes (%) (Auto) 1.0 L 3.0-13.0 % Eosinophils (%) (Auto) 1.0 0.0-8.0 % Basophils (%) (Auto) 0.3 0.0-5.0 % Neutrophils # (Auto) 9.2 H 1.8-7.7 K/uL Lymphocytes # (Auto) 1.0 1.0-4.8 K/uL Monocytes # (Auto) 0.1 0.1-1.0 K/uL Eosinophils # (Auto) 0.10 0.00-0.70 K/uL Basophils # (Auto) 0.03 0.00-0.20 K/uL Absolute Immature Granulocyte (auto 0.06 0-1 K/uL Nucleated Red Blood Cells 0.0 0.0-0.19 % Sodium Level 133 L 136-145 mmol/L Potassium Level 4.4 3.5-5.1 mmol/L Chloride Level 101 101-111 mmol/L Carbon Dioxide Level 25 21-32 mmol/L Blood Urea Nitrogen 22 H 7-18 mg/dL Creatinine 1.3 0.5-1.3 mg/dL Glomerular Filtration Rate Calc 61 >90 mL/min Random Glucose 136 H 70-105 mg/dL Total Calcium 7.6 L 8.5-10.1 mg/dL Magnesium Level 2.00 1.80-2.40 mg/dL Total Bilirubin 0.4 0.2-1.0 mg/dL Aspartate Amino Transf (AST/SGOT) 14 10-37 U/L Alanine Aminotransferase (ALT/SGPT) 10 #L 12-78 U/L Alkaline Phosphatase 63 50-136 U/L Total Protein 5.2 L 6.0-8.3 g/dL Albumin 1.5 L 3.5-5.0 g/dL Phosphorus Level 2.5 2.5-4.9 mg/dL Bedside Glucose Comment Notified Nurse ASSESSMENT: Left foot diabetic ulcer with polymicrobial infection, possible osteomyelitis, status post transmetatarsal amputation on 08/31/2024. Proteus mirabilis bacteremia. Urinary tract infection with ESBL, E coli and Proteus mirabilis. Leukocytosis, resolving. Peripheral Artery disease. Diabetes mellitus Chronic kidney disease. Chronic Anemia. PLAN: Continue linezolid IV. Continue Zosyn. Continue pain management. Continue antidiabetics. Continue wound care. Will need 4 weeks of IV antibiotics and pending insurance approval to [facility]. This case was reviewed and discussed with my supervising physician and the above assessment and plan was formulated and agreed upon. ATTESTATION BY PHYSICIAN I have seen and examined the patient. I reviewed the documentation, medical decision making, and treatment plan as noted by the mid-level provider above. I agree with the findings and plan of care. SUSANNE BETTENCOURT MD, [facility] Sep 09, 2024 16:00
[2024-09-10] VITALS (8 sets, daily range): BP systolic 92–126; BP diastolic 59–73; PULSE 79–84; RESP 16–20; TEMP 97.5–98.3; O2SAT 97
--- NOTE | 2024-09-10 03:46 | PN ---
SUBJECTIVE: The patient is a very pleasant 64-year-old diabetic male seen on date of service 09/09/2024. The patient is afebrile at 98.1, blood pressure 96/55, pulse 86. Blood cultures, no growth x 5 days. Urine cultures, E. coli, proteus mirabilis. Wound cultures, proteus mirabilis and Staph aureus. The patient is currently receiving IV Zosyn and Zyvox. The patient is being followed by the Cardiology Service. I have reconsulted them for evaluation of peripheral vascular disease to the patient's left lower extremity due to some demarcating necrosis of the surgical site. The patient has had arterial Doppler studies and CT angiography performed. CT angiography was significant for circumferential calcifications in bilateral popliteal, anterior tibial, and posterior tibial arteries with complete occlusion of the right popliteal. The left popliteal artery shows no significant luminal compromise. There is attenuated contrast opacification in the upper and mid segment of the left anterior tibial artery with occlusion distally. REVIEW OF SYSTEMS: CONSTITUTIONAL: No chills, no fevers, no night sweats. GASTROINTESTINAL: No nausea or vomiting. No diarrhea. HEENT: No problems with eyes, ears, nose or throat. CARDIOVASCULAR: He has no current chest pain. He has peripheral vascular disease with occlusion of his anterior tibial artery on the left noted on CT of his abdominal aorta with runoff. Cardiology has been reconsulted. RESPIRATORY: No shortness of breath. GENITOURINARY: No dysuria. GASTROINTESTINAL: No dysphagia. ENDOCRINE: . Total protein 5.3. MUSCULOSKELETAL: Transmetatarsal amputation on the left, [id number] amputation on the right. OBJECTIVE: His examination today shows he has some demarcating area of necrosis to the dorsal medial aspect of his flap of his transmetatarsal amputation site. There is a demarcating necrosis of the dorsal flap medially on his transmetatarsal amputation. ASSESSMENT: Right peripheral vascular disease, low albumin, anemia, polymicrobial wound infection, polymicrobial urinary tract infection, receiving Zyvox and Zosyn. The patient has been evaluated for a long-term acute care facility placement with IV antibiotics and local wound care. He continues to be followed for his leukocytosis, which has improved and is now 10.7. PLAN: We are awaiting evaluation of circulation status by the Cardiology Service. Continue with IV antibiotics. Continue with local wound care. Continue to follow the patient closely while in house. TID: [id number] RECEIPT: [id number]
[2024-09-10 04:57] LABS: IMMATURE GRANULOCYTE ABSOLUTE 0.04 K/uL (0-1); NUCLEATED RED BLOOD CELLS 0.0 % (0.0-0.19); PLATELET COUNT (AUTO) 210 K/uL (130-400); RED BLOOD CELL COUNT(AUTO) 2.44 MIL/uL (4.50-6.20); RED CELL DISTRIBUTION WIDTH 13.4 % (11.0-15.5); WHITE BLOOD COUNT (AUTO) 9.2 K/uL (4.8-10.8)
[2024-09-10 05:30] LABS: ASPARTATE AMINOTRANSFERASE 14.0 U/L (10-37); CREATININE 1.4 mg/dL (0.5-1.3); GLOMERULAR FILTR. RATE CALC 55.0 mL/min (>90); GLUCOSE,RANDOM 134.0 mg/dL (70-105); SODIUM SERUM 132.0 mmol/L (136-145); TOTAL PROTEIN, SERUM 5.2 g/dL (6.0-8.3); UREA NITROGEN, BLOOD 26.0 mg/dL (7-18)
--- NOTE | 2024-09-10 06:23 | PN ---
SUBJECTIVE: A 64-year-old male status post transmetatarsal amputation on the left, status post [id number] amputation on the right, being followed by Nephrology, Infectious Disease, and Cardiology. Currently afebrile, 97.9, pulse 81, respirations 20, blood pressure 110/59. White count 9.2, H and H of 7.2 and 22.7, platelets 210, neutrophils 88,000. BUN/creatinine 26/1.4, albumin 1.6. Wound cultures: Proteus mirabilis and Staph aureus. Urine cultures: Escherichia coli and Proteus mirabilis. The patient with abnormal arterial Doppler studies on the left, abnormal CT angiography. CT angiography was significant for circumferential calcification in bilateral popliteal arteries, anterior tibial and posterior tibial arteries with complete occlusion of the right popliteal. The left popliteal showed no significant compromises, attenuated contrast opacification in the upper and mid segment of the left anterior tibial artery consistent with occlusion distally. REVIEW OF SYSTEMS: CONSTITUTIONAL: No chills, no fevers, no night sweats. No nausea, vomiting. No diarrhea. HEENT: No problems with his eyes, ears, nose, or throat. CARDIOVASCULAR: Peripheral vascular disease with occlusion of the anterior tibial artery on the left noted on the CT of his abdominal aorta with runoff. Cardiology has been reconsulted. RESPIRATORY: No shortness of breath. GENITOURINARY: No dysuria. GASTROINTESTINAL: No dysphagia. ENDOCRINE: Diabetes. PSYCHIATRIC: Denied any depression. MUSCULOSKELETAL: Transmetatarsal amputation of the left, [id number] amputation on the right. OBJECTIVE: EXTREMITIES: Today shows some demarcating area of necrosis to the dorsomedial aspect of the flap to the transmetatarsal amputation on the left. ASSESSMENT: Peripheral vascular disease, low albumin, anemia, polymicrobial wound infection, polymicrobial urinary tract infection, receiving Zyvox and Zosyn. The patient is being evaluated for long-term acute care facility placement with IV antibiotics and wound care, improving leukocytosis, elevated neutrophils. PLAN: We are awaiting evaluation of circulation status by the cardiology service. Continue with the antibiotics. Continue with local wound care. Nephrology is monitoring the patient's renal function closely. TID: [id number] RECEIPT: [id number]
--- NOTE | 2024-09-10 12:40 | PN ---
[facility] PROGRESS NOTE Date of Service: Sep 10, 2024 Time of Service: 12:[address] Rendon SUBJECTIVE: This is a 63-year-old male with underlying history of poorly controlled type 2 diabetes mellitus, peripheral arterial disease, prior history of right belo w-the-knee amputation in 2020 due to right foot gangrene and necrotizing fasciitis. Patient presented to the emergency room August 30, 2024, with a chronic wounds involving toes to the foot, that according to him over the last several weeks has been getting more necrotic and foul smelling. He also reported having fever and chills. On presentation to the hospital, patient was noted to be febrile with T-max of 100.0 F, heart rate of 102, blood pressure of 81/50. [place] [address], hemoglobin of 10.3, platelet count of [id number]. BMP remarkable for sodium of 125, potassium 5.1, chloride of 90, BUN of 52, cr eatinine 2.0, blood glucose of 180, CK of 436 cardiac panel showed troponin of six. Patient admitted for further treatment and management of wet gangrene of the right foot with suspected chronic osteomyelitis of the toes. Patient received IV fluids and IV antibiotics. Consultation with Podiatry, Infectious Disease requested. 08/31 patient remains admitted to the PCU, BP 130/63, afebrile, saturating normal on room air. Leukocytosis improving, today WBC 14.9. Creatinine better at 1.6. Results of blood culture Gram-negative rods, positive in two of two sets. X- ray of the left foot status post interval amputation great toe, 2nd toe, 3rd toe with soft tissue edema subcutaneous emphysema overlying the 1st metatarsal, possible osteomyelitis of the 3rd and 4th proximal phalanx. Arterial ultrasound mild intimal wall thickening in both lower limb arteries, both lower limb arteries demonstrate biphasic waveform in all arteries other family left po sterior tibial, anterior tibial and dorsalis pedis which demonstrate monophasic waveform, no flow-limiting stenosis. Renal ultrasound normal kidneys, no hydronephrosis, mild debris is noted in the urinary bladder, cystitis should be excluded. Patient on broad-spectrum IV antibiotics with Zosyn and linezolid, ID and podiatry consulted, input noted and appreciated. Cardiology consultation requested as the patient with peripheral arterial disease. We will follow input and recommendation. Renal ultrasound normal, no hydronephrosis, creatinine improving, nephrology consulted, we will follow input and recommendation. Grant velasco my visit the patient is comfortable, back in the room from having debridement, eating lunch, tolerating well, getting good pain control with current medical management, at bedside, updated. 09/01 Patient presented to the emergency room August 30, 2024, with a chronic wounds involving toes to the left foot. X-ray of the left foot status post interval amputation great toe, 2nd toe, 3rd toe with soft tissue edema subcutaneous emphysema overlying the 1st metatarsal, possible osteomyelitis of the 3rd and 4th proximal phalanx. Patient is status post transmetatarsal amputation the left foot 08/31/24. Tolerated the procedure well. Results of blood culture positive for Proteus mirabilis. Urine culture [id number] CFU, identification and susceptibility process. Patient Zosyn IV, continue to follow podiatry and ID input and recommendation. During my visit the patient is comfortable, eating lunch, tolerating well, alert oriented x3, getting IV antibiotics, denied chest pain, shortness shortness for breath, no nausea, no vomiting, getting good pain control with current medical management, plan of care discussed with the patient and the at bedside, all questions answered. Agreed and understood all the information provided. 09/02 Patient presented to the emergency room August 30, 2024, with a chronic wounds involving toes to the left foot. X-ray of the left foot status post interval amputation great toe, 2nd toe, 3rd toe with soft tissue edema subcutaneous emphysema overlying the 1st metatarsal, possible osteomyelitis of the 3rd and 4th proximal phalanx. Patient is status post transmetatarsal amputation the left foot 08/31/24. Tolerated the procedure well. Results of blood culture positive for Proteus mirabilis. Wound culture from the left foot positive for Proteus mirabilis, urine culture positive for E coli and Proteus mirabilis. Patient remains on broad-spectrum IV antibiotics with Zosyn until systolic IV, continue to follow podiatry and ID input and recommendation, continue local wound care. Consider residential facility versus [facility] for continuation of medical care. During my visit the patient remains comfortably in bed, alert oriented x3, case discussed with the RN, no acute events overnight, plan to downgraded to the medical floor. 09/03 Seen and examined. Vitals are stable. White count is 16.5, H&H 8.3/25.3, CMP is stable. S/p TMA of Left foot with partial medial cuneiformectomy, transfer of the extensor hallucis longus to the flexor hallucis longus tendon, complex layered primary wound closure of a highly modified 22cm surgical incision by Dr. Lim on 08/31/24. Initial blood cultures are growing Proteus mirabilis, repeat blood cultures negative so far, intraoperative cultures positive for Proteus mirabilis and Staphylococcus aureus. Urine cultures growing ESBL E coli and Proteus mirabilis. CT angio results are pending. No incidences reported overnight. 09/04 The patient was seen and examined in the room this morning. He is alert oriented x3. denies pain at this time. Patient is postop day 4. S/P transmetatarsal amputation of the left foot with partial medial cuneiform anti and tendon transfer performed by Dr. Lim. He continues with IV antibiotics. Wound care being managed by Dr. Lim. 09/05 Today on bedside evaluation patient was found awake alert and oriented x 3. The power chart reviewed, vital signs, laboratory tests, imaging test and medications have been reviewed. Latest vitals are stable, white count is elevated at 73.7, H&H 7.5/22.7, renal function remains slightly elevated BUN at 19, creatinine 1.4. Case management is coordinating for LTAC placement. 09/06 Seen and examined. Vital signs are stable, afebrile. White count is downtrending now at 14.2, H&H improving 8/24.2, CMP is stable. No incidences reported overnight. Pending LTAC placement. 09/07 patient was seen by nurse practitioner physician during rounding in room 412. At this moment patient is pending discharge to [facility] once insurance approved.. WBC 13.1 hemoglobin 7.4 hematocrit 22.9. No incidents reported overnight. We will continue to monitor patient in the meantime. A.m. labs 09/08 patient was seen by nurse practitioner and during rounding. Patient is pending discharge to [facility] once insurance approved. WBC are trending down. All the labs reviewed by PROCESS CONTROL ENGINEER. A.m. labs. 09/09/24 patient was seen by nurse practitioner and physician during rounding. Case management is working on disposition to [facility] once insurance approved. WB C 10.5. Labs reviewed by PROCESS CONTROL ENGINEER. A.m. labs. Continue to monitor patient 09/10/24 was seen by nurse practitioner and physician during rounding in room 412. As per Dr. Lim, he requested the Cardiology Services to evaluate of circulation status. In the meantime patient continues to be on linezolid, Zyvox, Zosyn. We will continue to monitor patient in the meantime. WBC today is 9.2. A.m. labs. Patient pending authorization to [facility] REVIEW OF SYSTEMS CONSTITUTIONAL: fevers, chills, malaise, poor oral intake NEUROLOGICAL: Denies headache, amaurosis fugax, motor weakness, sensory deficit, vertigo/spinning sensation, gait abnormalities, or tremors. ENT: No hearing loss, otalgia, otorrhea, rhinitis, rhinorrhea, hoarseness, or sore throat. CARDIOVASCULAR: Denies any exertional angina, dyspnea on exertion, orthopnea, paroxysmal nocturnal dyspnea, palpitations, life-threatening arrhythmias, claudication. PULMONARY: Denies any shortness of breath, cough, phlegm/sputum, hemoptysis, pleuritic chest pain. SLEEP: Denies morning headaches, daytime somnolence or napping. Denies difficulty falling asleep, staying asleep, waking from sleep. Denies knowledge of snoring. GASTROINTESTINAL: Denies any type of dysphagia to either liquids or solids. Denies nausea, vomiting, pyrosis, early satiety, abdominal pain, diarrhea, co nstipation, or changes in stool consistency or caliber. Denies coffee-ground emesis, hematemesis, hematochezia, or melanotic stools. GENITOURINARY: Denies frequency, urgency, nocturia, hematuria or incontinence (Storage/Irritative symptoms.) Low urinary stream, straining to void, urinary intermittency or hesitancy, splitting of the voiding stream, terminal dribbling. ENDOCRINOLOGIC: Hx of type 2 Diabetes mellitus HEMATOLOGIC: Denies thrombophilia/previous clots, or coagulopathy/bleeding disorders. ONCOLOGIC: Denies personal history of malignancy. DERMATOLOGIC: foul smelling necrotic toes of the left foot with non healing wounds PSYCHIATRIC: Denies any suicidal or homicidal ideation. Denies hallucinations. PHYSICAL EXAM GENERAL APPEARANCE: The patient is awake, alert, and oriented, in no acute cardiopulmonary distress. NEUROLOGICAL: Cranial nerves II-XII grossly intact. Motor is 5/5 in bilateral upper and lower extremities proximal to distal. No sensory deficits. HEENT: Face is symmetric. Pupils are equal and reactive. Extraocular movements are intact. NECK: Supple. No JVD. No thyromegaly. No submental, submandibular, pre- /postauricular, occipital or supraclavicular lymphadenopathy. CHEST: Normal chest expansion. No Telemetry. LUNGS: Absence of any rales, rhonchi or any wheezing. CARDIOVASCULAR: Regular. S1 and S2 normal. No appreciable rubs, murmurs or gallops. ABDOMEN: Soft, nontender, and nondistended. There is no rebound, voluntary guarding, or rigidity. : Deferred. No Sandhu. EXTREMITIES: Left foot noted to have extremely foul-smelling wound with necrotic toes noted from 2nd two fifth digit, area of erythema and surrounding cellulitic changes noted Vital Signs (last 8hr) Date Time Temp Pulse Resp B/P (MAP) Pulse Ox O2 Delivery O2 Flow Rate FiO2 09/10/24 11:11 97.5 81 16 113/68 98 Room Air 09/10/24 08:03 97.5 84 20 109/71 97 Room Air 09/10/24 08:00 97 Room Air* 0 21 LABS: Laboratory: Test 09/10/24 10:44 09/10/24 04:40 Range/Units Whole Blood Glucose 111 H 70-110 MG/DL White Blood Count 9.2 4.8-10.8 K/uL Red Blood Count 2.44 L 4.50-6.20 MIL/uL Hemoglobin 7.2 L 14.0-18.0 g/dL Hematocrit 22.7 L 42-54 % Mean Corpuscular Volume 93.0 79-99 fL Mean Corpuscular Hemoglobin 29.5 27.0-33.0 pg Mean Corpuscular Hemoglobin Concent 31.7 L 32.0-36.0 g/dL Red Cell Distribution Width 13.4 11.0-15.5 % Platelet Count 210 130-400 K/uL Mean Platelet Volume 9.6 7.5-10.5 fL Immature Granulocyte % (Auto) 0.4 0-1 % Neutrophils (%) (Auto) 88.0 H 40.0-77.0 % Lymphocytes (%) (Auto) 9.5 L 21.0-51.0 % Monocytes (%) (Auto) 0.8 L 3.0-13.0 % Eosinophils (%) (Auto) 1.0 0.0-8.0 % Basophils (%) (Auto) 0.3 0.0-5.0 % Neutrophils # (Auto) 8.1 H 1.8-7.7 K/uL Lymphocytes # (Auto) 0.9 L 1.0-4.8 K/uL Monocytes # (Auto) 0.1 0.1-1.0 K/uL Eosinophils # (Auto) 0.09 0.00-0.70 K/uL Basophils # (Auto) 0.03 0.00-0.20 K/uL Absolute Immature Granulocyte (auto 0.04 0-1 K/uL Nucleated Red Blood Cells 0.0 0.0-0.19 % Sodium Level 132 L 136-145 mmol/L Potassium Level 4.3 3.5-5.1 mmol/L Chloride Level 100 L 101-111 mmol/L Carbon Dioxide Level 24 21-32 mmol/L Blood Urea Nitrogen 26 H 7-18 mg/dL Creatinine 1.4 H 0.5-1.3 mg/dL Glomerular Filtration Rate Calc 55 >90 mL/min Random Glucose 134 H 70-105 mg/dL Total Calcium 7.8 L 8.5-10.1 mg/dL Magnesium Level 2.00 1.80-2.40 mg/dL Total Bilirubin 0.4 0.2-1.0 mg/dL Aspartate Amino Transf (AST/SGOT) 14 10-37 U/L Alanine Aminotransferase (ALT/SGPT) 10 L 12-78 U/L Alkaline Phosphatase 60 50-136 U/L Total Protein 5.2 L 6.0-8.3 g/dL Albumin 1.6 L 3.5-5.0 g/dL Current Medications Medications (Trade) Dose Ordered Sig/Nathaly Route PRN Reason Start Time Stop Time Status Last Admin Dose Admin Acetaminophen (TYLenol 325MG TAB) 650 mg Q6H PRN PO MILD PAIN (1-3) 08/30/24 17:30 09/29/24 17:29 Betamethasone Valerate (Betamethasone Valerate) 1 APPLICATION TID TP 09/01/24 14:00 10/01/24 13:59 Cancel Clopidogrel Bisulfate (plaVIX 75MG) 75 mg DAILY PO 09/02/24 09:00 10/02/24 08:59 09/10/24 08:59 75 MG Dextrose (D50w) 50 ml AD PRN IV HYPOGLYCEMIA PROTOCOL 08/30/24 18:00 09/29/24 17:59 Glucagon (Glucagon 1mg Kit) 1 mg AD PRN IM HYPOGLYCEMIA PROTOCOL 08/30/24 18:00 09/29/24 17:59 Hydromorphone HCl (DiLAUDid 0.5MG INJ) 0.2 mg Q6H PRN IVP SEVERE PAIN (7-10) 08/30/24 17:30 09/04/24 17:29 DC Insulin Human Regular (humuLIN R 100 UNIT/ML 3ML) INSULIN SLIDING SCAL... ACHS SQ 08/30/24 21:00 09/29/24 20:59 09/07/24 19:56 2 UNIT Linezolid 300 ml @ 150 mls/hr Q12H IV 09/10/24 12:30 09/20/24 12:29 Linezolid 300 ml @ 150 mls/hr Q12H IV 08/30/24 18:00 08/30/24 17:37 DC Linezolid 300 ml @ 150 mls/hr Q12H IV 08/30/24 20:00 09/09/24 19:59 DC 09/09/24 08:50 150 MLS/HR Metformin HCl (glucoPHAGE) 1,000 mg BIDMEALS PO 09/07/24 17:00 10/07/24 16:59 09/10/24 08:59 1,000 MG Ondansetron HCl (zoFRAN 4MG INJ) 4 mg Q6H PRN IVP NAUSEA/VOMITING 08/30/24 17:30 09/29/24 17:29 Pharmacy Profile Note (Pharmacy Communication) 1 each ONCE MISC 08/30/24 17:30 09/01/24 07:16 DC 08/30/24 17:56 1 EACH Piperacillin Sod/ Tazobactam Sod (Zosyn 3.375gm+NS 50ml) 3.375 gm Q12H IVPB 08/30/24 21:00 08/31/24 06:42 DC 08/30/24 23:06 3.375 GM Piperacillin Sod/ Tazobactam Sod (Zosyn 3.375gm+NS 50ml) 3.375 gm Q8H IVPB 09/10/24 15:00 09/20/24 14:59 Piperacillin Sod/ Tazobactam Sod (Zosyn 3.375gm+NS 50ml) 3.375 gm Q8H IVPB 08/31/24 07:00 09/09/24 20:59 DC 09/09/24 15:28 3.375 GM Potassium Chloride 100 ml @ 100 mls/hr AD PRN IV POTASSIUM PROTOCOL 09/06/24 08:00 10/06/24 07:59 Potassium Chloride (K-Dur/Klor-Con 20meq) 20 meq AD PRN PO POTASSIUM PROTOCOL 09/06/24 08:00 10/06/24 07:59 09/06/24 15:41 20 MEQ Potassium Chloride (KCl 10% Elixir 20meq/15ml) 20 meq AD PRN PO POTASSIUM PROTOCOL 09/06/24 08:00 10/06/24 07:59 Sodium Chloride 1,000 ml @ 75 mls/hr [id number] IV 08/30/24 20:00 09/01/24 12:55 DC 08/31/24 22:29 75 MLS/HR Thiamine HCl (Vitamin B-1) 100 mg Q24H IVP 08/30/24 18:00 09/01/24 16:47 DC 08/31/24 18:33 100 MG Thiamine HCl (Vitamin B-1) 100 mg Q24H IVP 09/01/24 20:00 10/01/24 19:59 09/09/24 19:42 100 MG Vitamin B Complex/ Vit C/Folic Acid (Nephrovite Tablet) 1 cap DAILY PO 09/01/24 09:00 10/01/24 08:59 09/10/24 08:59 1 CAP DIAGNOSTICS / RADIOLOGY: [ ] ASSESSMENT: Gas/wet gangrene of the left foot with extensively necrotic toes and underlying acute osteo-myelitis of multiple toes, POA Sepsis 2/2 complicated soft tissue infection of the left foot with underlying osteomyelitis)/Gram-negative bacteremia, POA Status post transmetatarsal amputation left foot 08/31/2024 Gram-negative bacteremia secondary secondary to Proteus mirabilis POA Urinary tract infection, secondary to E coli and Proteus mirabilis, POA Left foot wound culture positive for Proteus mirabilis Poorly controlled type 2 diabetes mellitus, POA Acute renal failure, POA Acute rhabdomyolysis, POA Anemia, POA Significant leukocytosis secondary to underlying septicemia, POA Moderate hyponatremia, POA Hx of right BKA, POA PLAN: Treatment: - Surgical: Transmetatarsal amputation of the left foot with partial medial cuneiformectomy and tendon transfer was performed. - Medications: Continued IV antibiotics with IV Zosyn and Zyvox. - ID recommends LTAC placement, continue antibiotics for four weeks - PICC line placed ready to use - Wound Care: Wound packing with betadine sulcos and complex layered primary wound closure. - case management to coordinate for [facility] placement, pending insurance approval Tests: - final wound culture results showing Proteus mirabilis and Staphylococcus aureus. - Blood cultures showed Proteus mirabilis; intraoperative cultures showed Proteus mirabilis and Staphylococcus aureus. Final urine culture showed E coli, Proteus mirabilis - CT angiogram of bilateral lower extremities showed atherosclerosis and occlusions. Patient Education: - Discussed post-operative care and the importance of completing the antibiotic course. As per Dr. Lim we are pending client account assistant to evaluate for circulation Disposition: - Continue monitoring in the hospital setting due to the complexity of the condition and post-operative status. ATTESTATION BY PHYSICIAN I have seen and examined the patient. I reviewed the documentation, medical decision making, and treatment plan as noted by the mid-level provider above. I agree with the findings and plan of care. JERO RENDON MD, KATARZYNA B RETURNS CLERK Sep 10, 2024 12:40
--- NOTE | 2024-09-10 13:22 | PN ---
NEPHROLOGY PROGRESS NOTE Date/Time Patient Seen: Sep 10, 2024 SUBJECTIVE: This is a 63-year-old male with underlying history of poorly controlled type 2 diabetes mellitus, peripheral arterial disease, prior history of right [id number] amputation in 2020 due to right foot gangrene and necrotizing fasciitis. He presented to emergency room for evaluation of left foot wounds. S/p left TMA by Dr. Lim He continues to be followed by Cardiology, pending recommendations He was noted to have worsening elevated BUN/creatinine We have been consulted for renal failure. Renal function and electrolytes are stable Hemoglobin has remained stable Renal ultrasound showed normal kidneys with no hydronephrosis. He continues on antibiotics as per ID Blood cultures are positive for Proteus mirabilis He continues to be followed by Podiatry, requested the Cardiology Services to evaluate of circulation status. Case management coordinating LTAC placement He was seen in the medical floor, in no acute distress Prognosis remains guarded REVIEW OF SYSTEMS: GENERAL: Positive for left foot wound. NEUROLOGIC: Negative for any blurry vision, blind spots, double vision, facial asymmetry, dysphagia, dysarthria, hemiparesis, hemisensory deficits, vertigo, ataxia. HEENT: Negative for any head trauma, neck trauma, neck stiffness, photophobia, phonophobia, sinusitis, rhinitis. CARDIAC: Negative for any chest pain, dyspnea on exertion, paroxysmal nocturnal dyspnea, peripheral edema. PULMONARY: Negative for any shortness of breath, wheezing, COPD, or TB exposure. GASTROINTESTINAL: Negative for any abdominal pain, nausea, vomiting, bright red blood per rectum, melena. GENITOURINARY: Negative for any dysuria, hematuria, incontinence. INTEGUMENTARY: Negative for any rashes, cuts, insect bites. RHEUMATOLOGIC: Negative for any joint pains, photosensitive rashes, history of vasculitis or kidney problems. HEMATOLOGIC: Negative for any abnormal bruising, frequent infections or bleeding. Vital Signs (last 8hr) Date Time Temp Pulse Resp B/P (MAP) Pulse Ox O2 Delivery O2 Flow Rate FiO2 09/10/24 11:11 97.5 81 16 113/68 98 Room Air 09/10/24 08:03 97.5 84 20 109/71 97 Room Air 09/10/24 08:00 97 Room Air* 0 21 PHYSICAL EXAM: GENERAL: Alert and oriented x 3. No acute distress. Well-nourished. EYES: EOMI. Anicteric. HENT: Moist mucous membranes. No scleral icterus. No cervical lymphadenopathy. LUNGS: Clear to auscultation bilaterally. No accessory muscle use. CARDIOVASCULAR: Regular rate and rhythm. No murmur. No JVD. ABDOMEN: Soft, non-tender and non-distended. No palpable masses. EXTREMITIES: No edema. Non-tender. Right BKA, left TMA SKIN: No rashes or lesions. Warm. NEUROLOGIC: No focal neurological deficits. CN II-XII grossly intact, but not individually tested. PSYCHIATRIC: Cooperative. Appropriate mood and affect. Current Medications Medications (Trade) Dose Ordered Sig/Nathaly Route Start Time Stop Time Status Last Admin Dose Admin Betamethasone Valerate (Betamethasone Valerate) 1 APPLICATION TID TP 09/01/24 14:00 10/01/24 13:59 Cancel Clopidogrel Bisulfate (plaVIX 75MG) 75 mg DAILY PO 09/02/24 09:00 10/02/24 08:59 Insulin Human Regular (humuLIN R 100 UNIT/ML 3ML) INSULIN SLIDING SCAL... ACHS SQ 08/30/24 21:00 09/29/24 20:59 09/01/24 16:50 3 UNIT Linezolid 300 ml @ 150 mls/hr Q12H IV 08/30/24 18:00 08/30/24 17:37 DC Linezolid 300 ml @ 150 mls/hr Q12H IV 08/30/24 20:00 09/09/24 19:59 09/02/24 09:34 150 MLS/HR Pharmacy Profile Note (Pharmacy Communication) 1 each ONCE MISC 08/30/24 17:30 09/01/24 07:16 DC 08/30/24 17:56 1 EACH Piperacillin Sod/ Tazobactam Sod (Zosyn 3.375gm+NS 50ml) 3.375 gm Q12H IVPB 08/30/24 21:00 08/31/24 06:42 DC 08/30/24 23:06 3.375 GM Piperacillin Sod/ Tazobactam Sod (Zosyn 3.375gm+NS 50ml) 3.375 gm Q8H IVPB 08/31/24 07:00 09/09/24 20:59 09/02/24 05:21 3.375 GM Sodium Chloride 1,000 ml @ 75 mls/hr [id number] IV 08/30/24 20:00 09/01/24 12:55 DC 08/31/24 22:29 75 MLS/HR Thiamine HCl (Vitamin B-1) 100 mg Q24H IVP 08/30/24 18:00 09/01/24 16:47 DC 08/31/24 18:33 100 MG Thiamine HCl (Vitamin B-1) 100 mg Q24H IVP 09/01/24 20:00 10/01/24 19:59 09/01/24 19:55 100 MG Vitamin B Complex/ Vit C/Folic Acid (Nephrovite Tablet) 1 cap DAILY PO 09/01/24 09:00 10/01/24 08:59 09/02/24 09:34 1 CAP LABORATORY: [ ] Hematology Labs: Test 09/10/24 04:40 Range/Units White Blood Count 9.2 4.8-10.8 K/uL Red Blood Count 2.44 L 4.50-6.20 MIL/uL Hemoglobin 7.2 L 14.0-18.0 g/dL Hematocrit 22.7 L 42-54 % Mean Corpuscular Volume 93.0 79-99 fL Mean Corpuscular Hemoglobin 29.5 27.0-33.0 pg Mean Corpuscular Hemoglobin Concent 31.7 L 32.0-36.0 g/dL Red Cell Distribution Width 13.4 11.0-15.5 % Platelet Count 210 130-400 K/uL Mean Platelet Volume 9.6 7.5-10.5 fL Immature Granulocyte % (Auto) 0.4 0-1 % Neutrophils (%) (Auto) 88.0 H 40.0-77.0 % Lymphocytes (%) (Auto) 9.5 L 21.0-51.0 % Monocytes (%) (Auto) 0.8 L 3.0-13.0 % Eosinophils (%) (Auto) 1.0 0.0-8.0 % Basophils (%) (Auto) 0.3 0.0-5.0 % Neutrophils # (Auto) 8.1 H 1.8-7.7 K/uL Lymphocytes # (Auto) 0.9 L 1.0-4.8 K/uL Monocytes # (Auto) 0.1 0.1-1.0 K/uL Eosinophils # (Auto) 0.09 0.00-0.70 K/uL Basophils # (Auto) 0.03 0.00-0.20 K/uL Absolute Immature Granulocyte (auto 0.04 0-1 K/uL Nucleated Red Blood Cells 0.0 0.0-0.19 % Chemistry Labs: Test 09/10/24 10:44 09/10/24 04:40 Range/Units Whole Blood Glucose 111 H 70-110 MG/DL Sodium Level 132 L 136-145 mmol/L Potassium Level 4.3 3.5-5.1 mmol/L Chloride Level 100 L 101-111 mmol/L Carbon Dioxide Level 24 21-32 mmol/L Blood Urea Nitrogen 26 H 7-18 mg/dL Creatinine 1.4 H 0.5-1.3 mg/dL Glomerular Filtration Rate Calc 55 >90 mL/min Random Glucose 134 H 70-105 mg/dL Total Calcium 7.8 L 8.5-10.1 mg/dL Magnesium Level 2.00 1.80-2.40 mg/dL Total Bilirubin 0.4 0.2-1.0 mg/dL Aspartate Amino Transf (AST/SGOT) 14 10-37 U/L Alanine Aminotransferase (ALT/SGPT) 10 L 12-78 U/L Alkaline Phosphatase 60 50-136 U/L Total Protein 5.2 L 6.0-8.3 g/dL Albumin 1.6 L 3.5-5.0 g/dL DIAGNOSTICS / RADIOLOGY: PATIENT: CHADD MAGDALENO MR#: [id number] : 1960 SEX: M AGE: 64 LOCATION: [facility] ORDER 48 STATUS: ADM IN REPORT#: [id number] SERVICE 47 REASON: CONFIRM PICC LINE PLACEMENT ORDERING PHYSICIAN: BRAULIO BRIDGES MD PROCEDURE: CXR1VW - CHEST 1VW EXAM: CR Chest, 1 view CLINICAL HISTORY: Line placement. COMPARISON: CT chest dated 09/02/2024. FINDINGS: The right PICC line tip overlies the superior cavoatrial junction. The lungs show no infiltrates or other acute findings. No pleural effusion or pneumothorax. The cardiomediastinal silhouette is within normal limits. No acute osseous abnormality. IMPRESSION: The right PICC line tip overlies the superior cavoatrial junction. No acute cardiopulmonary process is evident. No adverse interval changes. /[place] DICTATED BY: GISEL CHACON Jr., MD DATE: 09/05/2424 ELECTRONICALLY SIGNED BY: GISEL CHACON Jr., MD DATE: 09/05/2424 PATIENT: CHADD MAGDALENO MR#: [id number] : 1960 SEX: M AGE: 64 LOCATION: [facility] ORDER 1020 STATUS: ADM IN REPORT#: [id number] SERVICE 1018 REASON: PAD; with LEFT lower extremity runoff ORDERING PHYSICIAN: KANIKA CROFT PROCEDURE: CTA ABDAOR - CT ANGIO ABD AORTA W RUNOFF EXAM: CTA bilateral Lower Extremities with Intravenous Contrast. CLINICAL HISTORY: Amputation of the right lower limb. TECHNIQUE: Axial CTA images of the bilateral Lower Extremities performed with intravenous contrast in the arterial phase with coronal and sagittal reformatted images generated and reviewed. 3-D reformatted images generated on an independent workstation and also reviewed. CONTRAST: Yes. COMPARISON: None provided. FINDINGS: Aorta: Atherosclerosis in the aorta with multiple calcified and non-calcified plaques at the origin of coeiliac axis, superior mesenteric artery and in the aortic neves without any flow limiting stenosis. VASCULATURE: Common Femoral Artery: Mild circumferential wall thickening with small calcified and non-calcified plaques on both sides without any flow limiting stenosis. Superficial Femoral Artery: Circumferential wall thickening with calcified plaques causing focal areas of luminal narrowing by approximately 20-30% on both sides. There is a focal area of luminal narrowing by approximately 60-70% in the lower one-thirds of the right superficial femoral artery. Deep Femoral Artery: No acute finding. No occlusion, rupture, aneurysm or dissection. Popliteal and Calf Arteries: There is circumferential calcifications in the bilateral popliteal and anterior and posterior tibial arteries with complete occlusion of the right popliteal artery and the right anterior and posterior tibial arteries. The left popliteal artery shows no significant luminal compromise. There is attenuated contrast opacification in the upper and mid segments of left anterior tibial artery with occlusion distally. Soft tissues: Unremarkable. Bones: Status post right below the knee amputation. No acute osseous abnormality. IMPRESSION: 1. Atherosclerosis in the aorta and in arteries of bilateral lower limb with complete occlusion of the right popliteal and proximal right anterior and posterior tibial arteries. Status post right below the knee amputation. 2. High-grade stenosis in the proximal and mid left anterior tibial artery with occlusion distally. 3. No abdominal aortic aneurysm or dissection. /[place] DICTATED BY: PATRICIA LAWSON MD DATE: 09/04/24647 ELECTRONICALLY SIGNED BY: PATRICIA LAWSON MD DATE: 09/04/24647 PATIENT: CHADD MAGDALENO MR#: [id number] : 1960 SEX: M AGE: 64 LOCATION: [facility] ORDER 1245 STATUS: ADM IN REPORT#: [id number] SERVICE 1227 REASON: cad,chf ORDERING PHYSICIAN: CHARIS OROSCO MD PROCEDURE: ECHO CMP - ECHO 2-D COMPLETE APPROVED REPORT EXAM: Two-dimensional and M-mode echocardiogram with Doppler and color Doppler. Study Details: Diabts M , PVD INDICATION ICD: CAD , chf 2D Dimensions RVDd 3.4 cm LVEF(%) 70.2 (>50%) LVED Vol(simp.) 86.7 mL IVSd 0.9 (0.7-1.1cm) FS(%) 40 % LVES Vol(simp.) 38.5 mL LVDd 4.6 (3.8-5.6cm) LA (2D) 2.8 (1.6-4.0cm) LVEF(%, simp.) 56 % PWd 0.8 (0.7-1.1cm) Ao Root(2D) 3.3 (2.0-3.7cm) LA ESV INDEX (4CH) 21.00 mL/m2 IVSs 1.1 cm LVOT diam 2.0 (1.8-2.4cm) LA ESV INDEX (2CH) 15.31 mL/m2 LVDs 2.8 (2.5-4.0cm) LA ESV INDEX (BP) 15.38 mL/m2 PWs 1.2 cm Deformation Strain Apical 4 16.8 % Apical 2 13.2 % Apical 3 15.0 % Global Strain 15.0 % M-Mode Dimensions EPSS 1.8 cm LA (MM) 3.4 (1.6-4.0cm) Ao Root(MM) 3.4 (2.0-3.7cm) Aortic Valve AoV Vmax 0.9 m/s Ao Peak GR 3.2 mmHg LVOT Vmax 0.8 m/s AoV VTI 0.2 m Ao Mean GR 1.7 mmHg LVOT VTI 0.15 m CAITLIN (VMAX) 3.04 cm2 CAITLIN (VTI) 3.1 cm2 Mitral Valve MV E Vmax 61.6 cm/s DECEL Time 244 ms MV A Vmax 95.3 cm/s E/A ratio 0.6 TDI E/E' Medial 10.5 E/E' Lateral 6.4 Medial E' Peak V 5.86 cm/s Lateral E' Peak V 9.56 cm/s Pulmonary Valve PV Vmax 0.9 m/s PV VTI 0.18 m PV Mean GR 2.0 mmHg PV Peak GR 3.5 mmHg Left Ventricle The left ventricle is normal size. There is normal LV segmental wall motion. There is normal left ventricular wall thickness. LVEF is 50-55%. Stage I diastolic dysfunction. Right Ventricle The right ventricle is normal size. The right ventricular systolic function is normal. Atria The left atrium size is normal. The interatrial septum is intact with no e vidence for an atrial septal defect. The right atrium size is normal. Aortic Valve Aortic valve NCC leaflets mild calcified. Trace aortic regurgitation. There is no aortic valvular stenosis. Mitral Valve The mitral valve is mildly thickened. Mild posterior mitral annular calcification present. There is no evidence of significant mitral regurgitation. There is no mitral valve stenosis. Tricuspid Valve The tricuspid valve is normal in structure. There is no tricuspid valve regurgitation noted. Pulmonic Valve Pulmonic valve is not well visualized. There is trace pulmonic valvular regurgitation. Great Vessels The aortic root is normal in size. The ascending aorta is normal in size. IVC is not well visualized. Pericardium not visualized Conclusion LVEF is 50-55%. Stage I diastolic dysfunction. There is normal LV segmental wall motion. Aortic valve NCC leaflets mild calcified. Trace aortic regurgitation. The mitral valve is mildly thickened. Mild posterior mitral annular calcification present. DICTATED BY: CHARIS OROSCO MD DATE: 09/01/24 1114 ELECTRONICALLY SIGNED BY: CHARIS OROSCO MD DATE: 09/01/24 1417 PATIENT: CHADD MAGDALENO MR#: [id number] : 1960 SEX: M AGE: 63 LOCATION: [facility] ORDER 37 STATUS: ADM IN REPORT#: [id number] SERVICE 34 REASON: rule out any significant lung infiltrates, sepsis, foot infection ORDERING PHYSICIAN: BRAULIO BRIDGES MD PROCEDURE: CXR1VW - CHEST 1VW EXAM: CR Chest, 1 View. CLINICAL HISTORY: rule out any significant lung infiltrates, sepsis, foot infection COMPARISON: 05/02/2017 FINDINGS: LUNGS: There is no mass, infiltrate, or acute pulmonary abnormality. PLEURAL SPACES: No pleural effusion or pneumothorax. MEDIASTINUM: Cardiac size and mediastinal contours within normal limits. BONES: No aggressive appearing osseous lesion seen. IMPRESSION: No acute cardiopulmonary pathology is evident. /[place] DICTATED BY: PATRICIA LAWSON MD DATE: 08/30/242003 REASON: acute renal failure, uncontrolled DM II ORDERING PHYSICIAN: BRAULIO BRIDGES MD PROCEDURE: RENAL - US RENAL SONOGRAM EXAMINATION: Renal ultrasound. COMPARISON: None provided. HISTORY: acute renal failure, uncontrolled DM II FINDINGS: The right kidney measures 9.9 cm and is normal in echotexture. The left kidney measures 9.2 cm and is normal in echotexture. There are no focal renal lesions. There are no renal stones. There is no hydronephrosis. There is mild debris noted in the urinary bladder. Cystitis should be excluded. IMPRESSION: Normal kidneys. No hydronephrosis Mild debris noted in the urinary bladder. Cystitis should be excluded. /[place] DICTATED BY: PATRICIA LAWSON MD DATE: 08/30/242022 PATIENT: CHADD MAGDALENO MR#: [id number] : 1960 SEX: M AGE: 63 LOCATION: [facility] ORDER 23 STATUS: ADM IN REPORT#: [id number] SERVICE 171 REASON: non healing left foot wound with necrotic toes, assess for severe PAD ORDERING PHYSICIAN: BRAULIO BRIDGES MD PROCEDURE: ART B LE - US ARTERIAL BILAT LOW EXT DUPL EXAMINATION: DUPLEX ULTRASOUND EXAMINATION OF THE BILATERAL LOWER EXTREMITY ARTERIES. CLINICAL HISTORY: Non-healing wound in the left, to assess for peripheral arterial disease. COMPARISON: Lower extremity arterial doppler dated 12/29/2020. FINDINGS: Peak systolic velocities within the right lower arteries are as follows: Common femoral artery: 56 cm/s. Superficial femoral artery: 55 cm/s at proximal, 71 cm/s at mid, and 50 cm/s at distal segments. Popliteal artery: 28 cm/s at proximal and 37 cm/s at distal segments. The right lower limb arteries demonstrate biphasic waveforms in all arteries. The below knee arteries are not assessed, post amputation status. Peak systolic velocities within the left lower arteries are as follows: Common femoral artery: 66 cm/s. Superficial femoral artery: 71 cm/s at proximal, 72 cm/s at mid, and 72 cm/s at distal segments. Popliteal artery: 56 cm/s at proximal and 55 cm/s at distal segments. Posterior tibial artery: 30 cm/s. Anterior tibial artery: 47 cm/s. Dorsalis pedis artery: 67 cm/s. The left lower limb arteries demonstrate biphasic waveforms in all arteries other than posterior tibial, anterior tibial, and dorsalis pedis arteries which demonstrate monophasic waveforms. There is intimal wall thickening in both lower limb arteries. IMPRESSION: Mild intimal wall thickening in both the lower limb arteries. Both lower limb arteries demonstrate biphasic waveforms in all arteries other than left posterior tibial, anterior tibial, and dorsalis pedis arteries which demonstrate monophasic waveforms. No flow limiting lesions. /[place] DICTATED BY: PATRICIA LAWSON MD DATE: 08/30/242034 PATIENT: CHADD MAGDALENO MR#: [id number] : 1960 SEX: M AGE: 63 LOCATION: [facility] ORDER 1501 STATUS: ADM IN REPORT#: [id number] SERVICE 1500 REASON: SEPSIS ORDERING PHYSICIAN: IVON UNDERWOOD MD PROCEDURE: FT 3VW LT - FOOT COMP 3+VWS LT EXAM: CR Left foot, 3 View. CLINICAL HISTORY: SEPSIS COMPARISON: Comparison: Radiograph dated September 21, 2016 Findings: AP, oblique, lateral views of the left foot are submitted. Interval amputation of the great toe from the distal metatarsal. There is edema and subcutaneous emphysema within the soft tissues overlying the first metatarsal. Presumed interval amputation of the second toe from the mid to distal second proximal phalanx and of the third toe from the distal interphalangeal joint. Clinical correlation is advised. There is suggestion of bone loss and cortical irregularities seen within the mid diaphyses of the 3rd and 4th proximal phalanxes. Findings may reflect osteomyelitis. Recommend contrast-enhanced MRI of the midfoot/forefoot for further evaluation. IMPRESSION: 1. Status post interval amputation of great toe, second toe, and third toe with soft tissue edema and subcutaneous emphysema overlying the first metatarsal. 2. Possible osteomyelitis of 3rd and 4th proximal phalanxes. Recommend MRI of the midfoot/forefoot for further evaluation. /[place] DICTATED BY: GISEL CHACON Jr., MD DATE: 08/30/24 321 ASSESSMENT: Acute renal failure Acute rhabdomyolysis Anemia Hyponatremia Sepsis Blood culture positive for Gram-negative rods Gas/wet gangrene of the left foot with extensively necrotic toes and underlying acute osteo-myelitis of multiple toe Poorly controlled type 2 diabetes mellitus Significant leukocytosis secondary to underlying septicemia PLAN: Labs, diagnostic, radiologic exams reviewed and interpreted by myself and supervising physician. We have reviewed external records in detail Case management coordinating LTAC placement 1.5 Fluid restriction is advised Require close monitoring of renal function and electrolytes Order CBC, CMP, and electrolytes in am Continue with antibiotics as per ID BiPAP as necessary, for respiratory distress Monitor blood pressure adjust medication doses as needed Avoid hypotensive episodes May use Dilaudid 0.5 mg IV every 6 hours as needed for severe pain Monitor blood sugars Strict intake, output, and daily weight should be monitored Please renally adjust medications Avoid nephrotoxic and nonsteroidal drugs Avoid contrast if possible Will continue to monitor renal function, anemia, electrolytes Treatment plan discussed with patient Questions were answered We have discussed with the other team physicians in detail about the care plan We will continue to monitor the patient closely ATTESTATION BY PHYSICIAN I have seen and examined the patient. I reviewed the documentation, medical decision making, and treatment plan as noted by the mid-level provider above. I agree with the findings and plan of care. EMMIE KRAMER MD, [facility] Sep 10, 2024 13:22
[2024-09-10] MEDS: LINEZOLID 600 MG/ISO-OSM 300 ML IV SCH (13:36)
[2024-09-10] MEDS: ZOSYN 3.375GM +NS 50ML IVPB SCH (14:33)
--- NOTE | 2024-09-10 16:49 | PN ---
INFECTIOUS DISEASE PROGRESS NOTE Date of Service: Sep 10, 2024 SUBJECTIVE: This is a 64 year old male patient who was seen today at bedside in room 412. Patient is s/p left TMA on 08/31/2024 and remains afebrile, temperature is 97.5. Will continue on Zosyn and linezolid IV. Approval to LTAC was declined and patient will be referred to SNF. PHYSICAL EXAM EYES: Anicteric. Pupils equal and reactive. HENT: No oral thrush seen, moist Oral mucosa. NECK: Supple, no JVD or thyromegaly. LUNGS: Good air entry. No rales, no rhonchi. CARDIOVASCULAR: S1, S2 regular. No murmur heard. ABDOMEN: Soft, non tender, bowel sounds present, no organomegaly. CENTRAL NERVOUS SYSTEM: Awake, alert, oriented x 3. SKIN: No rashes, no swelling. LYMPHATICS: No peripheral lymphadenopathy MUSCULOSKELETAL: No joint swelling, erythema or tenderness. EXTREMITIES: Dry dressing to left lower extremity. Left TMA. History of right BKA BACK: No deformity, no pressure ulcer. GENITOURINARY: No dysuria or hematuria. Vital Sign (Last 12 Hours) 09/10/24 09/10/24 09/10/24 08:00 08:03 11:11 Temp 97.5 97.5 Pulse 84 81 Resp 20 16 B/P (MAP) 109/71 113/68 Pulse Ox 97 97 98 O2 Delivery Room Air* Room Air Room Air O2 Flow Rate 0 FiO2 21 Intake & Output (last 24hrs) 09/09/24 09/09/24 09/10/24 14:59 22:59 06:59 Intake Total 250.0 ml Balance 250.0 ml LABS: Laboratory: Test 09/10/24 16:38 09/10/24 04:40 Range/Units Whole Blood Glucose 152 H 70-110 MG/DL White Blood Count 9.2 4.8-10.8 K/uL Red Blood Count 2.44 L 4.50-6.20 MIL/uL Hemoglobin 7.2 L 14.0-18.0 g/dL Hematocrit 22.7 L 42-54 % Mean Corpuscular Volume 93.0 79-99 fL Mean Corpuscular Hemoglobin 29.5 27.0-33.0 pg Mean Corpuscular Hemoglobin Concent 31.7 L 32.0-36.0 g/dL Red Cell Distribution Width 13.4 11.0-15.5 % Platelet Count 210 130-400 K/uL Mean Platelet Volume 9.6 7.5-10.5 fL Immature Granulocyte % (Auto) 0.4 0-1 % Neutrophils (%) (Auto) 88.0 H 40.0-77.0 % Lymphocytes (%) (Auto) 9.5 L 21.0-51.0 % Monocytes (%) (Auto) 0.8 L 3.0-13.0 % Eosinophils (%) (Auto) 1.0 0.0-8.0 % Basophils (%) (Auto) 0.3 0.0-5.0 % Neutrophils # (Auto) 8.1 H 1.8-7.7 K/uL Lymphocytes # (Auto) 0.9 L 1.0-4.8 K/uL Monocytes # (Auto) 0.1 0.1-1.0 K/uL Eosinophils # (Auto) 0.09 0.00-0.70 K/uL Basophils # (Auto) 0.03 0.00-0.20 K/uL Absolute Immature Granulocyte (auto 0.04 0-1 K/uL Nucleated Red Blood Cells 0.0 0.0-0.19 % Sodium Level 132 L 136-145 mmol/L Potassium Level 4.3 3.5-5.1 mmol/L Chloride Level 100 L 101-111 mmol/L Carbon Dioxide Level 24 21-32 mmol/L Blood Urea Nitrogen 26 H 7-18 mg/dL Creatinine 1.4 H 0.5-1.3 mg/dL Glomerular Filtration Rate Calc 55 >90 mL/min Random Glucose 134 H 70-105 mg/dL Total Calcium 7.8 L 8.5-10.1 mg/dL Magnesium Level 2.00 1.80-2.40 mg/dL Total Bilirubin 0.4 0.2-1.0 mg/dL Aspartate Amino Transf (AST/SGOT) 14 10-37 U/L Alanine Aminotransferase (ALT/SGPT) 10 L 12-78 U/L Alkaline Phosphatase 60 50-136 U/L Total Protein 5.2 L 6.0-8.3 g/dL Albumin 1.6 L 3.5-5.0 g/dL ASSESSMENT: Left foot diabetic ulcer with polymicrobial infection, possible osteomyelitis, status post transmetatarsal amputation on 08/31/2024. Proteus mirabilis bacteremia. Urinary tract infection with ESBL, E coli and Proteus mirabilis. Leukocytosis, resolving. Peripheral Artery disease. Diabetes mellitus Chronic kidney disease. Chronic Anemia. PLAN: Continue linezolid IV. Continue Zosyn. Continue pain management. Continue antidiabetics. Continue wound care. Will need 4 weeks of IV antibiotics. Approval to LTAC was declined and patient will be referred to SNF. This case was reviewed and discussed with my supervising physician and the above assessment and plan was formulated and agreed upon. ATTESTATION BY PHYSICIAN I have seen and examined the patient. I reviewed the documentation, medical decision making, and treatment plan as noted by the mid-level provider above. I agree with the findings and plan of care. SUSANNE BETTENCOURT MD, [facility] Sep 10, 2024 16:49
[2024-09-11 03:27] VITALS: BP 98/60; PULSE 107; RESP 18; TEMP 97.9
[2024-09-11 06:20] LABS: IMMATURE GRANULOCYTE ABSOLUTE 0.04 K/uL (0-1); NUCLEATED RED BLOOD CELLS 0.0 % (0.0-0.19); PLATELET COUNT (AUTO) 191 K/uL (130-400); RED BLOOD CELL COUNT(AUTO) 2.39 MIL/uL (4.50-6.20); RED CELL DISTRIBUTION WIDTH 13.5 % (11.0-15.5); WHITE BLOOD COUNT (AUTO) 8.6 K/uL (4.8-10.8)
[2024-09-11 06:39] LABS: ASPARTATE AMINOTRANSFERASE 15.0 U/L (10-37); CREATININE 1.5 mg/dL (0.5-1.3); GLOMERULAR FILTR. RATE CALC 51.0 mL/min (>90); GLUCOSE,RANDOM 157.0 mg/dL (70-105); SODIUM SERUM 133.0 mmol/L (136-145); TOTAL PROTEIN, SERUM 5.3 g/dL (6.0-8.3); UREA NITROGEN, BLOOD 32.0 mg/dL (7-18)
--- NOTE | 2024-09-11 07:05 | PN ---
SUBJECTIVE: The patient is a very pleasant 64-year-old diabetic male who was seen, followed up for transmetatarsal amputation on the left. Elevated renal function, 32 and 1.5, anemia, H and H 7.1 and 21.8. Pending evaluation by the Cardiology Service regarding left lower extremity, peripheral vascular disease with demarcating necrosis of the surgical flap. The patient is currently receiving IV Zyvox and IV Zosyn. He has had cultures which have grown back Proteus mirabilis and Staphylococcus aureus from his left foot wound and Escherichia coli and Proteus mirabilis from his urine. Dopplers on the left were abnormal. CT angiography was significant for occlusion of the anterior tibial artery, upper and mid segment. REVIEW OF SYSTEMS: CONSTITUTIONAL: No chills. No fevers. No night sweats. GASTROINTESTINAL: No nausea or vomiting. No diarrhea. HEENT: No problems with eyes, ears, nose, or throat. CARDIOVASCULAR: Peripheral vascular disease with occlusion of the anterior tibial artery on the left noted by CT of his abdominal aorta with runoff. Cardiology has been reconsulted. RESPIRATORY: No shortness of breath. GENITOURINARY: No dysuria. GASTROINTESTINAL: No dysphagia. ENDOCRINE: Diabetes. PSYCHIATRIC: Denied any depression. MUSCULOSKELETAL: Transmetatarsal amputation on the left. Below-knee amputation on the left. INTEGUMENTARY: Demarcating necrosis in an area of 2 x 3 cm to the surgical flap, dorsal and medial. OBJECTIVE: On examination today, he has demarcating necrosis to the dorsomedial flap, transmetatarsal amputation on the left. ASSESSMENT: Peripheral vascular disease. Low albumin. Anemia. Polymicrobial wound infection. Urinary tract infection, receiving Zyvox and Zosyn. The patient is being evaluated for long-term acute care facility placement. The patient is followed for renal insufficiency. The patient with improving leukocytosis, elevated neutrophils. PLAN: Awaiting Cardiology's evaluation of his circulation status. Continue with the IV antibiotics. Continue with local wound care. Nephrology is monitoring the patient's renal function. Follow the patient closely while in-house. TID: [id number] RECEIPT: [id number]
[2024-09-11 08:00] VITALS: O2SAT 98
[2024-09-11 08:16] VITALS: BP 113/59; PULSE 81; RESP 18; TEMP 97.8
--- NOTE | 2024-09-11 10:49 | PN ---
Cardiology Progress Note Date of Service: 09/11/2024 Attending Advice Clerk: Dr. Romain De Paz Primary Advice Clerk: Dr. Vickey Villalpando Reason for Consult: PAD Problem List: -Sepsis -Leukocytosis -Bacteremia (Proteus mirabilis) -Gangrene (Proteus mirabilis, Staph aureus) with osteomyelitis affecting multiple digits of the left foot s/p left TMA done on 08/31/2024 -PAD, [place] category 5 symptoms (LLE) -UTI (E coli, Proteus mirabilis) -Acute on chronic renal insufficiency with baseline CKD stage III -Hyponatremia -Normocytic normochromic anemia -Low normal LV systolic function (LVEF: 50-55% by echo done 09/21/2024) -HLP -DM2 -PAD s/p right BKA -Protein malnutrition -Noncompliance Subjective: This is a 64y/o male who was seen and evaluated at the bedside today. The patient denies any active complaints including chest pain, chest pressure, palpitations, shortness of breath, or lower extremity pain. There were no overnight reported events. Vitals/Labs Vital Signs Date Time Temp Pulse Resp B/P (MAP) Pulse Ox O2 Delivery O2 Flow Rate FiO2 09/11/24 08:16 97.9 81 18 113/59 99 Room Air 09/11/24 08:00 0 21 General: Awake and alert. No acute distress. Chronically ill appearing. Cachetic and frail. HEENT: Normocephalic, atraumatic. EOMI. Oral mucosa was moist. Neck: No masses, JVD, or carotid bruits noted. Lungs: No respiratory distress. SCM. Bilaterally clear to auscultation. No obvious wheezing, rales, or rhonchi. Cardiac: Regular rate. Normal S1 and S2, +S4. No other obvious murmurs, rubs, or gallops noted. Abdomen: Soft, nontender, nondistended. No organomegaly. Normoactive bowel sounds x 4 quadrants. Extremities: No edema, clubbing, or cyanosis. Right BKA. The left TMA site is wrapped in a bulky dressing, so we are unable to assess distal pulses. Neuro: Cranial nerves II-XII are grossly intact. No obvious focal deficits identified. Laboratory Tests 09/11/24 06:10 Assessment: -Sepsis -Leukocytosis -Bacteremia (Proteus mirabilis) -Gangrene (Proteus mirabilis, Staph aureus) with osteomyelitis affecting multiple digits of the left foot s/p left TMA done on 08/31/2024 -PAD, [place] category 5 symptoms (LLE) -UTI (E coli, Proteus mirabilis) -Acute on chronic renal insufficiency with baseline CKD stage III -Hyponatremia -Normocytic normochromic anemia -Low normal LV systolic function (LVEF: 50-55% by echo done 09/21/2024) -HLP -DM2 -PAD s/p right BKA -Protein malnutrition -Noncompliance Plan: 1. PAD, [place] category 5 symptoms (LLE) -Of concern, is that the patient's underlying PAD will impact wound healing to the left TMA site. -Of greater concern, is the patient's worsening anemia (admission HGB: 10.3 g/dL, current HGB: 7.1 g/dL) may preclude him from being a candidate for further invasive PAD therapy. -As a result, we will send a fecal occult to assess the etiology behind the patient's underlying anemia and will start the patient on ferrous sulfate. -In addition, we will refer the patient for a TCOM analysis of the left foot to further assess his potential for found healing/candidacy for HBO therapy. -Once the etiology behind the patient's anemia has been identified and treated (HGB > 8.0 g/dL), we will refer the patient for a left lower extremity peripheral angiogram with possible intervention. The risks and benefits of the procedure have been explained to the patient and he wishes to proceed. -In the meantime, he will continue on clopidogrel 75 mg daily and atorvastatin 20 mg QHS. -In addition, he should continue on IV antibiotic therapy and with aggressive wound care. This case was discussed with my Supervising Physician, Dr. Romain De Paz, and the above-mentioned plan was formulated and agreed upon. -Progress Note written by Imelda Bush, MSN, [employer], AGACNP-BC IMELDA BUSH NP Sep 11, 2024 10:49
[2024-09-11 11:03] VITALS: BP 95/56; PULSE 83; RESP 16; TEMP 97.6
[2024-09-11] MEDS: FERROUS SULFATE 325 MG TABLET.DR PO SCH (11:22)
--- NOTE | 2024-09-11 11:43 | PN ---
[facility] PROGRESS NOTE Date of Service: Sep 11, 2024 Time of Service: 11:31 SUBJECTIVE: The patient is a 63-year-old male with a significant medical history of poorly controlled type 2 diabetes mellitus, peripheral arterial disease, and a prior right [id number] amputation in 2020 due to right foot gangrene and necrotizing fasciitis. He presented to the emergency room on August 30, 2024, with worsening chronic wounds on the toes of his left foot, which had become increasingly necrotic and foul-smelling over the past several weeks. He also reported experiencing fever and chills. On admission, the patient was febrile with a maximum temperature of 100.0F, tachycardic with a heart rate of 102 bpm, and hypotensive with a blood pressure of 81/50 mmHg. Laboratory tests revealed leukocytosis with a WBC count of 21,400, anemia with a hemoglobin level of 10.3, and elevated creatinine at 2.0, indicating possible renal impairment. Blood cultures were positive for Gram- negative rods, later identified as Proteus mirabilis, and urine cultures showed growth of E. coli and Proteus mirabilis. The patient was admitted for management of wet gangrene of the left foot with suspected chronic osteomyelitis. He underwent a transmetatarsal amputation of the left foot on August 31, 2024, performed by Dr. Lim, which he tolerated well. Postoperatively, he was treated with broad-spectrum IV antibiotics, including Zosyn and linezolid, and received consultations from Podiatry, Infectious Disease, and Nephrology. Despite initial improvement, his white blood cell count remained elevated, and he required ongoing wound care and monitoring. Throughout his hospital stay, the patient remained stable, with vital signs improving and leukocytosis gradually resolving. He was alert, oriented, and reported adequate pain control. Case management coordinated his discharge to a long-term acute care facility ([facility]) for continued medical care, pending insurance approval. But apparently he got accepted to [facility] nursing [facility]. Today, upon evaluation and chart review, it was noted that the residential tech has recommended a cardiology consultation to assess the patient's circulation, given his peripheral vascular disease. Dr. De Paz has suggested a transcutaneous oximetry (TCOM) and a possible angiogram to be performed on to further evaluate and manage his vascular status. The patient remains stable and continues to receive appropriate wound care and medical management. REVIEW OF SYSTEMS CONSTITUTIONAL: fevers, chills, malaise, poor oral intake NEUROLOGICAL: Denies headache, amaurosis fugax, motor weakness, sensory deficit, vertigo/spinning sensation, gait abnormalities, or tremors. ENT: No hearing loss, otalgia, otorrhea, rhinitis, rhinorrhea, hoarseness, or sore throat. CARDIOVASCULAR: Denies any exertional angina, dyspnea on exertion, orthopnea, paroxysmal nocturnal dyspnea, palpitations, life-threatening arrhythmias, claudi cation. PULMONARY: Denies any shortness of breath, cough, phlegm/sputum, hemoptysis, pleuritic chest pain. SLEEP: Denies morning headaches, daytime somnolence or napping. Denies difficulty falling asleep, staying asleep, waking from sleep. Denies knowledge of snoring. GASTROINTESTINAL: Denies any type of dysphagia to either liquids or solids. Denies nausea, vomiting, pyrosis, early satiety, abdominal pain, diarrhea, constipation, or changes in stool consistency or caliber. Denies coffee-ground emesis, hematemesis, hematochezia, or melanotic stools. GENITOURINARY: Denies frequency, urgency, nocturia, hematuria or incontinence (Storage/Irritative symptoms.) Low urinary stream, straining to void, urinary intermittency or hesitancy, splitting of the voiding stream, terminal dribbling. ENDOCRINOLOGIC: Hx of type 2 Diabetes mellitus HEMATOLOGIC: Denies thrombophilia/previous clots, or coagulopathy/bleeding disorders. ONCOLOGIC: Denies personal history of malignancy. DERMATOLOGIC: foul smelling necrotic toes of the left foot with non healing wounds PSYCHIATRIC: Denies any suicidal or homicidal ideation. Denies hallucinations. PHYSICAL EXAM GENERAL APPEARANCE: The patient is awake, alert, and oriented, in no acute card iopulmonary distress. NEUROLOGICAL: Cranial nerves II-XII grossly intact. Motor is 5/5 in bilateral upper and lower extremities proximal to distal. No sensory deficits. HEENT: Face is symmetric. Pupils are equal and reactive. Extraocular movements are intact. NECK: Supple. No JVD. No thyromegaly. No submental, submandibular, pre- /postauricular, occipital or supraclavicular lymphadenopathy. CHEST: Normal chest expansion. No Telemetry. LUNGS: Absence of any rales, rhonchi or any wheezing. CARDIOVASCULAR: Regular. S1 and S2 normal. No appreciable rubs, murmurs or gallops. ABDOMEN: Soft, nontender, and nondistended. There is no rebound, voluntary guarding, or rigidity. : Deferred. No Sandhu. EXTREMITIES: Left foot noted to have extremely foul-smelling wound with necrotic toes noted from 2nd two fifth digit, area of erythema and surrounding cellulitic changes noted Vital Signs (last 8hr) Date Time Temp Pulse Resp B/P (MAP) Pulse Ox O2 Delivery O2 Flow Rate FiO2 09/11/24 11:03 97.5 83 16 95/56 98 Room Air 09/11/24 08:16 97.9 81 18 113/59 99 Room Air 09/11/24 08:00 98 Room Air* 0 21 LABS: Laboratory: Test 09/11/24 10:54 09/11/24 06:10 Range/Units Whole Blood Glucose 117 H 70-110 MG/DL White Blood Count 8.6 4.8-10.8 K/uL Red Blood Count 2.39 L 4.50-6.20 MIL/uL Hemoglobin 7.1 L 14.0-18.0 g/dL Hematocrit 21.8 L 42-54 % Mean Corpuscular Volume 91.2 79-99 fL Mean Corpuscular Hemoglobin 29.7 27.0-33.0 pg Mean Corpuscular Hemoglobin Concent 32.6 32.0-36.0 g/dL Red Cell Distribution Width 13.5 11.0-15.5 % Platelet Count 191 130-400 K/uL Mean Platelet Volume 9.5 7.5-10.5 fL Immature Granulocyte % (Auto) 0.5 0-1 % Neutrophils (%) (Auto) 87.2 H 40.0-77.0 % Lymphocytes (%) (Auto) 10.6 L 21.0-51.0 % Monocytes (%) (Auto) 0.5 L 3.0-13.0 % Eosinophils (%) (Auto) 0.9 0.0-8.0 % Basophils (%) (Auto) 0.3 0.0-5.0 % Neutrophils # (Auto) 7.5 1.8-7.7 K/uL Lymphocytes # (Auto) 0.9 L 1.0-4.8 K/uL Monocytes # (Auto) 0.0 L 0.1-1.0 K/uL Eosinophils # (Auto) 0.08 0.00-0.70 K/uL Basophils # (Auto) 0.03 0.00-0.20 K/uL Absolute Immature Granulocyte (auto 0.04 0-1 K/uL Nucleated Red Blood Cells 0.0 0.0-0.19 % Sodium Level 133 L 136-145 mmol/L Potassium Level 4.1 3.5-5.1 mmol/L Chloride Level 101 101-111 mmol/L Carbon Dioxide Level 24 21-32 mmol/L Blood Urea Nitrogen 32 H 7-18 mg/dL Creatinine 1.5 H 0.5-1.3 mg/dL Glomerular Filtration Rate Calc 51 >90 mL/min Random Glucose 157 H 70-105 mg/dL Total Calcium 7.9 L 8.5-10.1 mg/dL Magnesium Level 2.10 1.80-2.40 mg/dL Total Bilirubin 0.4 0.2-1.0 mg/dL Aspartate Amino Transf (AST/SGOT) 15 10-37 U/L Alanine Aminotransferase (ALT/SGPT) 10 L 12-78 U/L Alkaline Phosphatase 57 50-136 U/L Total Protein 5.3 L 6.0-8.3 g/dL Albumin 1.6 L 3.5-5.0 g/dL Current Medications Medications (Trade) Dose Ordered Sig/Nathaly Route PRN Reason Start Time Stop Time Status Last Admin Dose Admin Acetaminophen (TYLenol 325MG TAB) 650 mg Q6H PRN PO MILD PAIN (1-3) 08/30/24 17:30 09/29/24 17:29 Atorvastatin Calcium (LIPItor 20MG) 20 mg HS PO 09/11/24 21:00 10/11/24 20:59 Betamethasone Valerate (Betamethasone Valerate) 1 APPLICATION TID TP 09/01/24 14:00 10/01/24 13:59 Cancel Clopidogrel Bisulfate (plaVIX 75MG) 75 mg DAILY PO 09/02/24 09:00 10/02/24 08:59 09/11/24 09:25 75 MG Dextrose (D50w) 50 ml AD PRN IV HYPOGLYCEMIA PROTOCOL 08/30/24 18:00 09/29/24 17:59 Ferrous Sulfate (Ferrous Sulfate) 325 mg DAILY PO 09/11/24 11:00 10/11/24 10:59 09/11/24 11:22 325 MG Glucagon (Glucagon 1mg Kit) 1 mg AD PRN IM HYPOGLYCEMIA PROTOCOL 08/30/24 18:00 09/29/24 17:59 Hydromorphone HCl (DiLAUDid 0.5MG INJ) 0.2 mg Q6H PRN IVP SEVERE PAIN (7-10) 08/30/24 17:30 09/04/24 17:29 DC Insulin Human Regular (humuLIN R 100 UNIT/ML 3ML) INSULIN SLIDING SCAL... ACHS SQ 08/30/24 21:00 09/29/24 20:59 09/07/24 19:56 2 UNIT Linezolid 300 ml @ 150 mls/hr Q12H IV 09/10/24 12:30 09/20/24 12:29 09/11/24 11:22 150 MLS/HR Linezolid 300 ml @ 150 mls/hr Q12H IV 08/30/24 18:00 08/30/24 17:37 DC Linezolid 300 ml @ 150 mls/hr Q12H IV 08/30/24 20:00 09/09/24 19:59 DC 09/09/24 08:50 150 MLS/HR Metformin HCl (glucoPHAGE) 1,000 mg BIDMEALS PO 09/07/24 17:00 10/07/24 16:59 09/11/24 09:25 1,000 MG Ondansetron HCl (zoFRAN 4MG INJ) 4 mg Q6H PRN IVP NAUSEA/VOMITING 08/30/24 17:30 09/29/24 17:29 Pharmacy Profile Note (Pharmacy Communication) 1 each ONCE MISC 08/30/24 17:30 09/01/24 07:16 DC 08/30/24 17:56 1 EACH Piperacillin Sod/ Tazobactam Sod (Zosyn 3.375gm+NS 50ml) 3.375 gm Q12H IVPB 08/30/24 21:00 08/31/24 06:42 DC 08/30/24 23:06 3.375 GM Piperacillin Sod/ Tazobactam Sod (Zosyn 3.375gm+NS 50ml) 3.375 gm Q8H IVPB 09/10/24 15:00 09/20/24 14:59 09/11/24 05:58 3.375 GM Piperacillin Sod/ Tazobactam Sod (Zosyn 3.375gm+NS 50ml) 3.375 gm Q8H IVPB 08/31/24 07:00 09/09/24 20:59 DC 09/09/24 15:28 3.375 GM Potassium Chloride 100 ml @ 100 mls/hr AD PRN IV POTASSIUM PROTOCOL 09/06/24 08:00 10/06/24 07:59 Potassium Chloride (K-Dur/Klor-Con 20meq) 20 meq AD PRN PO POTASSIUM PROTOCOL 09/06/24 08:00 10/06/24 07:59 09/06/24 15:41 20 MEQ Potassium Chloride (KCl 10% Elixir 20meq/15ml) 20 meq AD PRN PO POTASSIUM PROTOCOL 09/06/24 08:00 10/06/24 07:59 Sodium Chloride 1,000 ml @ 75 mls/hr [id number] IV 08/30/24 20:00 09/01/24 12:55 DC 08/31/24 22:29 75 MLS/HR Thiamine HCl (Vitamin B-1) 100 mg Q24H IVP 08/30/24 18:00 09/01/24 16:47 DC 08/31/24 18:33 100 MG Thiamine HCl (Vitamin B-1) 100 mg Q24H IVP 09/01/24 20:00 10/01/24 19:59 09/09/24 19:42 100 MG Vitamin B Complex/ Vit C/Folic Acid (Nephrovite Tablet) 1 cap DAILY PO 09/01/24 09:00 10/01/24 08:59 09/11/24 09:25 1 CAP DIAGNOSTICS / RADIOLOGY: [ ] ASSESSMENT: Gas/wet gangrene of the left foot with extensively necrotic toes and underlying acute osteo-myelitis of multiple toes, POA Sepsis 2/2 complicated soft tissue infection of the left foot with underlying osteomyelitis)/Gram-negative bacteremia, POA Status post transmetatarsal amputation left foot 08/31/2024 Gram-negative bacteremia secondary secondary to Proteus mirabilis POA Urinary tract infection, secondary to E coli and Proteus mirabilis, POA Left foot wound culture positive for Proteus mirabilis Poorly controlled type 2 diabetes mellitus, POA Acute renal failure, POA Acute rhabdomyolysis, POA Anemia, POA Significant leukocytosis secondary to underlying septicemia, POA Moderate hyponatremia, POA Hx of right BKA, POA PLAN PLAN: Treatment: Surgical: The patient underwent a transmetatarsal amputation of the left foot with partial medial cuneiformectomy and tendon transfer. Medications: Continue IV antibiotics with Zosyn and Zyvox as per Infectious Disease recommendations. The plan is to continue antibiotics for four weeks. A PICC line has been placed and is ready for use. Wound Care: Wound packing with betadine sulcos and complex layered primary wound closure is ongoing. Case Management: Coordination for placement at [facility] is pending insurance approval. The patient has been accepted at a long term facility in [place]. Cardiology: A cardiology consultation is recommended for further evaluation of circulation. A transcutaneous oximetry (TCOM) and possible angiogram are scheduled for , 09/13/2024. Tests: Final wound culture results show Proteus mirabilis and Staphylococcus aureus. Blood cultures revealed Proteus mirabilis; intraoperative cultures showed Proteus mirabilis and Staphylococcus aureus. Final urine culture showed E. coli and Proteus mirabilis. CT angiogram of bilateral lower extremities indicated atherosclerosis and occlusions. Patient Education: Discussed post-operative care and emphasized the importance of completing the full course of antibiotics. Disposition: The patient will continue to be monitored in the hospital setting due to the complexity of his condition and post-operative status. Further evaluation by the town administrator is pending to assess circulation issues. ATTESTATION BY PHYSICIAN I have seen and examined the patient. I reviewed the documentation, medical decision making, and treatment plan as noted by the mid-level provider above. I agree with the findings and plan of care. JERO RICHARDS MD, [facility] Sep 11, 2024 11:43
--- NOTE | 2024-09-11 14:41 | PN ---
NEPHROLOGY PROGRESS NOTE Date/Time Patient Seen: Sep 11, 2024 SUBJECTIVE: This is a 63-year-old male with underlying history of poorly controlled type 2 diabetes mellitus, peripheral arterial disease, prior history of right [id number] amputation in 2020 due to right foot gangrene and necrotizing fasciitis. He presented to emergency room for evaluation of left foot wounds. S/p left TMA by Dr. Lim He continues to be followed by Cardiology, pending recommendations He was noted to have worsening elevated BUN/creatinine We have been consulted for renal failure. Renal function and electrolytes are stable Hemoglobin has remained stable Renal ultrasound showed normal kidneys with no hydronephrosis. He continues on antibiotics as per ID Blood cultures are positive for Proteus mirabilis He continues to be followed by Podiatry, requested the Cardiology Services to evaluate of circulation status. Pending possible angiogram to be performed on as per Cardiology recommendations Case management coordinating LTAC placement He was seen in the medical floor, in no acute distress Prognosis remains guarded REVIEW OF SYSTEMS: GENERAL: Positive for left foot wound. NEUROLOGIC: Negative for any blurry vision, blind spots, double vision, facial asymmetry, dysphagia, dysarthria, hemiparesis, hemisensory deficits, vertigo, ataxia. HEENT: Negative for any head trauma, neck trauma, neck stiffness, photophobia, phonophobia, sinusitis, rhinitis. CARDIAC: Negative for any chest pain, dyspnea on exertion, paroxysmal nocturnal dyspnea, peripheral edema. PULMONARY: Negative for any shortness of breath, wheezing, COPD, or TB exposure. GASTROINTESTINAL: Negative for any abdominal pain, nausea, vomiting, bright red blood per rectum, melena. GENITOURINARY: Negative for any dysuria, hematuria, incontinence. INTEGUMENTARY: Negative for any rashes, cuts, insect bites. RHEUMATOLOGIC: Negative for any joint pains, photosensitive rashes, history of vasculitis or kidney problems. HEMATOLOGIC: Negative for any abnormal bruising, frequent infections or bleeding. Vital Signs (last 8hr) Date Time Temp Pulse Resp B/P (MAP) Pulse Ox O2 Delivery O2 Flow Rate FiO2 09/11/24 11:03 97.5 83 16 95/56 98 Room Air 09/11/24 08:16 97.9 81 18 113/59 99 Room Air 09/11/24 08:00 98 Room Air* 0 21 PHYSICAL EXAM: GENERAL: Alert and oriented x 3. No acute distress. Well-nourished. EYES: EOMI. Anicteric. HENT: Moist mucous membranes. No scleral icterus. No cervical lymphadenopathy. LUNGS: Clear to auscultation bilaterally. No accessory muscle use. CARDIOVASCULAR: Regular rate and rhythm. No murmur. No JVD. ABDOMEN: Soft, non-tender and non-distended. No palpable masses. EXTREMITIES: No edema. Non-tender. Right BKA, left TMA SKIN: No rashes or lesions. Warm. NEUROLOGIC: No focal neurological deficits. CN II-XII grossly intact, but not individually tested. PSYCHIATRIC: Cooperative. Appropriate mood and affect. Current Medications Medications (Trade) Dose Ordered Sig/Nathaly Route Start Time Stop Time Status Last Admin Dose Admin Betamethasone Valerate (Betamethasone Valerate) 1 APPLICATION TID TP 09/01/24 14:00 10/01/24 13:59 Cancel Clopidogrel Bisulfate (plaVIX 75MG) 75 mg DAILY PO 09/02/24 09:00 10/02/24 08:59 Insulin Human Regular (humuLIN R 100 UNIT/ML 3ML) INSULIN SLIDING SCAL... ACHS SQ 08/30/24 21:00 09/29/24 20:59 09/01/24 16:50 3 UNIT Linezolid 300 ml @ 150 mls/hr Q12H IV 08/30/24 18:00 08/30/24 17:37 DC Linezolid 300 ml @ 150 mls/hr Q12H IV 08/30/24 20:00 09/09/24 19:59 09/02/24 09:34 150 MLS/HR Pharmacy Profile Note (Pharmacy Communication) 1 each ONCE MISC 08/30/24 17:30 09/01/24 07:16 DC 08/30/24 17:56 1 EACH Piperacillin Sod/ Tazobactam Sod (Zosyn 3.375gm+NS 50ml) 3.375 gm Q12H IVPB 08/30/24 21:00 08/31/24 06:42 DC 08/30/24 23:06 3.375 GM Piperacillin Sod/ Tazobactam Sod (Zosyn 3.375gm+NS 50ml) 3.375 gm Q8H IVPB 08/31/24 07:00 09/09/24 20:59 09/02/24 05:21 3.375 GM Sodium Chloride 1,000 ml @ 75 mls/hr [id number] IV 08/30/24 20:00 09/01/24 12:55 DC 08/31/24 22:29 75 MLS/HR Thiamine HCl (Vitamin B-1) 100 mg Q24H IVP 08/30/24 18:00 09/01/24 16:47 DC 08/31/24 18:33 100 MG Thiamine HCl (Vitamin B-1) 100 mg Q24H IVP 09/01/24 20:00 10/01/24 19:59 09/01/24 19:55 100 MG Vitamin B Complex/ Vit C/Folic Acid (Nephrovite Tablet) 1 cap DAILY PO 09/01/24 09:00 10/01/24 08:59 09/02/24 09:34 1 CAP LABORATORY: [ ] Hematology Labs: Test 09/11/24 06:10 Range/Units White Blood Count 8.6 4.8-10.8 K/uL Red Blood Count 2.39 L 4.50-6.20 MIL/uL Hemoglobin 7.1 L 14.0-18.0 g/dL Hematocrit 21.8 L 42-54 % Mean Corpuscular Volume 91.2 79-99 fL Mean Corpuscular Hemoglobin 29.7 27.0-33.0 pg Mean Corpuscular Hemoglobin Concent 32.6 32.0-36.0 g/dL Red Cell Distribution Width 13.5 11.0-15.5 % Platelet Count 191 130-400 K/uL Mean Platelet Volume 9.5 7.5-10.5 fL Immature Granulocyte % (Auto) 0.5 0-1 % Neutrophils (%) (Auto) 87.2 H 40.0-77.0 % Lymphocytes (%) (Auto) 10.6 L 21.0-51.0 % Monocytes (%) (Auto) 0.5 L 3.0-13.0 % Eosinophils (%) (Auto) 0.9 0.0-8.0 % Basophils (%) (Auto) 0.3 0.0-5.0 % Neutrophils # (Auto) 7.5 1.8-7.7 K/uL Lymphocytes # (Auto) 0.9 L 1.0-4.8 K/uL Monocytes # (Auto) 0.0 L 0.1-1.0 K/uL Eosinophils # (Auto) 0.08 0.00-0.70 K/uL Basophils # (Auto) 0.03 0.00-0.20 K/uL Absolute Immature Granulocyte (auto 0.04 0-1 K/uL Nucleated Red Blood Cells 0.0 0.0-0.19 % Chemistry Labs: Test 09/11/24 10:54 09/11/24 06:10 Range/Units Whole Blood Glucose 117 H 70-110 MG/DL Sodium Level 133 L 136-145 mmol/L Potassium Level 4.1 3.5-5.1 mmol/L Chloride Level 101 101-111 mmol/L Carbon Dioxide Level 24 21-32 mmol/L Blood Urea Nitrogen 32 H 7-18 mg/dL Creatinine 1.5 H 0.5-1.3 mg/dL Glomerular Filtration Rate Calc 51 >90 mL/min Random Glucose 157 H 70-105 mg/dL Total Calcium 7.9 L 8.5-10.1 mg/dL Magnesium Level 2.10 1.80-2.40 mg/dL Total Bilirubin 0.4 0.2-1.0 mg/dL Aspartate Amino Transf (AST/SGOT) 15 10-37 U/L Alanine Aminotransferase (ALT/SGPT) 10 L 12-78 U/L Alkaline Phosphatase 57 50-136 U/L Total Protein 5.3 L 6.0-8.3 g/dL Albumin 1.6 L 3.5-5.0 g/dL DIAGNOSTICS / RADIOLOGY: PATIENT: CHADD MAGDALENO MR#: [id number] : 1960 SEX: M AGE: 64 LOCATION: [facility] ORDER 48 STATUS: ADM IN REPORT#: [id number] SERVICE 47 REASON: CONFIRM PICC LINE PLACEMENT ORDERING PHYSICIAN: BRAULIO BRIDGES MD PROCEDURE: CXR1VW - CHEST 1VW EXAM: CR Chest, 1 view CLINICAL HISTORY: Line placement. COMPARISON: CT chest dated 09/02/2024. FINDINGS: The right PICC line tip overlies the superior cavoatrial junction. The lungs show no infiltrates or other acute findings. No pleural effusion or pneumothorax. The cardiomediastinal silhouette is within normal limits. No acute osseous abnormality. IMPRESSION: The right PICC line tip overlies the superior cavoatrial junction. No acute cardiopulmonary process is evident. No adverse interval changes. /[place] DICTATED BY: GISEL CHACON Jr., MD DATE: 09/05/2424 ELECTRONICALLY SIGNED BY: GISEL CHACON Jr., MD DATE: 09/05/2424 PATIENT: CHADD MAGDALENO MR#: [id number] : 1960 SEX: M AGE: 64 LOCATION: [facility] ORDER 1020 STATUS: ADM IN REPORT#: [id number] SERVICE 1018 REASON: PAD; with LEFT lower extremity runoff ORDERING PHYSICIAN: KANIKA CROFT PROCEDURE: CTA ABDAOR - CT ANGIO ABD AORTA W RUNOFF EXAM: CTA bilateral Lower Extremities with Intravenous Contrast. CLINICAL HISTORY: Amputation of the right lower limb. TECHNIQUE: Axial CTA images of the bilateral Lower Extremities performed with intravenous contrast in the arterial phase with coronal and sagittal reformatted images generated and reviewed. 3-D reformatted images generated on an independent workstation and also reviewed. CONTRAST: Yes. COMPARISON: None provided. FINDINGS: Aorta: Atherosclerosis in the aorta with multiple calcified and non-calcified plaques at the origin of coeiliac axis, superior mesenteric artery and in the aortic neves without any flow limiting stenosis. VASCULATURE: Common Femoral Artery: Mild circumferential wall thickening with small calcified and non-calcified plaques on both sides without any flow limiting stenosis. Superficial Femoral Artery: Circumferential wall thickening with calcified plaques causing focal areas of luminal narrowing by approximately 20-30% on both sides. There is a focal area of luminal narrowing by approximately 60-70% in the lower one-thirds of the right superficial femoral artery. Deep Femoral Artery: No acute finding. No occlusion, rupture, aneurysm or dissection. Popliteal and Calf Arteries: There is circumferential calcifications in the bilateral popliteal and anterior and posterior tibial arteries with complete occlusion of the right popliteal artery and the right anterior and posterior tibial arteries. The left popliteal artery shows no significant luminal compromise. There is attenuated contrast opacification in the upper and mid segments of left anterior tibial artery with occlusion distally. Soft tissues: Unremarkable. Bones: Status post right below the knee amputation. No acute osseous abnormality. IMPRESSION: 1. Atherosclerosis in the aorta and in arteries of bilateral lower limb with complete occlusion of the right popliteal and proximal right anterior and posterior tibial arteries. Status post right below the knee amputation. 2. High-grade stenosis in the proximal and mid left anterior tibial artery with occlusion distally. 3. No abdominal aortic aneurysm or dissection. /[place] DICTATED BY: PATRICIA LAWSON MD DATE: 09/04/24647 ELECTRONICALLY SIGNED BY: PATRICIA LAWSON MD DATE: 09/04/24647 PATIENT: CHADD MAGDALENO MR#: [id number] : 1960 SEX: M AGE: 64 [facility] ORDER 1245 STATUS: ADM IN REPORT#: [id number] SERVICE 1227 REASON: cad,chf ORDERING PHYSICIAN: CHARIS OROSCO MD PROCEDURE: ECHO [facility] - ECHO 2-D COMPLETE APPROVED REPORT EXAM: Two-dimensional and M-mode echocardiogram with Doppler and color Doppler. Study Details: Diabts M , PVD INDICATION ICD: CAD , chf 2D Dimensions RVDd 3.4 cm LVEF(%) 70.2 (>50%) LVED Vol(simp.) 86.7 mL IVSd 0.9 (0.7-1.1cm) FS(%) 40 % LVES Vol(simp.) 38.5 mL LVDd 4.6 (3.8-5.6cm) LA (2D) 2.8 (1.6-4.0cm) LVEF(%, simp.) 56 % PWd 0.8 (0.7-1.1cm) Ao Root(2D) 3.3 (2.0-3.7cm) LA ESV INDEX (4CH) 21.00 mL/m2 IVSs 1.1 cm LVOT diam 2.0 (1.8-2.4cm) LA ESV INDEX (2CH) 15.31 mL/m2 LVDs 2.8 (2.5-4.0cm) LA ESV INDEX (BP) 15.38 mL/m2 PWs 1.2 cm Deformation Strain Apical 4 16.8 % Apical 2 13.2 % Apical 3 15.0 % Global Strain 15.0 % M-Mode Dimensions EPSS 1.8 cm LA (MM) 3.4 (1.6-4.0cm) Ao Root(MM) 3.4 (2.0-3.7cm) Aortic Valve AoV Vmax 0.9 m/s Ao Peak GR 3.2 mmHg LVOT Vmax 0.8 m/s AoV VTI 0.2 m Ao Mean GR 1.7 mmHg LVOT VTI 0.15 m CAITLIN (VMAX) 3.04 cm2 CAITLIN (VTI) 3.1 cm2 Mitral Valve MV E Vmax 61.6 cm/s DECEL Time 244 ms MV A Vmax 95.3 cm/s E/A ratio 0.6 TDI E/E' Medial 10.5 E/E' Lateral 6.4 Medial E' Peak V 5.86 cm/s Lateral E' Peak V 9.56 cm/s Pulmonary Valve PV Vmax 0.9 m/s PV VTI 0.18 m PV Mean GR 2.0 mmHg PV Peak GR 3.5 mmHg Left Ventricle The left ventricle is normal size. There is normal LV segmental wall motion. There is normal left ventricular wall thickness. LVEF is 50-55%. Stage I diastolic dysfunction. Right Ventricle The right ventricle is normal size. The right ventricular systolic function is normal. Atria The left atrium size is normal. The interatrial septum is intact with no evidence for an atrial septal defect. The right atrium size is normal. Aortic Valve Aortic valve NCC leaflets mild calcified. Trace aortic regurgitation. There is no aortic valvular stenosis. Mitral Valve The mitral valve is mildly thickened. Mild posterior mitral annular calcification present. There is no evidence of significant mitral regurgitation. There is no mitral valve stenosis. Tricuspid Valve The tricuspid valve is normal in structure. There is no tricuspid valve regurgitation noted. Pulmonic Valve Pulmonic valve is not well visualized. There is trace pulmonic valvular regurgitation. Great Vessels The aortic root is normal in size. The ascending aorta is normal in size. IVC is not well visualized. Pericardium not visualized Conclusion LVEF is 50-55%. Stage I diastolic dysfunction. There is normal LV segmental wall motion. Aortic valve NCC leaflets mild calcified. Trace aortic regurgitation. The mitral valve is mildly thickened. Mild posterior mitral annular calcification present. DICTATED BY: CHARIS OROSCO MD DATE: 09/01/24 1114 ELECTRONICALLY SIGNED BY: CHARIS OROSCO MD DATE: 09/01/24 1417 PATIENT: CHADD MAGDALENO MR#: [id number] : 1960 SEX: M AGE: 63 LOCATION: [facility] ORDER 37 STATUS: ADM IN REPORT#: [id number] SERVICE 34 REASON: rule out any significant lung infiltrates, sepsis, foot infection ORDERING PHYSICIAN: BRAULIO BRIDGES MD PROCEDURE: CXR1VW - CHEST 1VW EXAM: CR Chest, 1 View. CLINICAL HISTORY: rule out any significant lung infiltrates, sepsis, foot infection COMPARISON: 05/02/2017 FINDINGS: LUNGS: There is no mass, infiltrate, or acute pulmonary abnormality. PLEURAL SPACES: No pleural effusion or pneumothorax. MEDIASTINUM: Cardiac size and mediastinal contours within normal limits. BONES: No aggressive appearing osseous lesion seen. IMPRESSION: No acute cardiopulmonary pathology is evident. /[place] DICTATED BY: PATRICIA LAWSON MD DATE: 08/30/242003 REASON: acute renal failure, uncontrolled DM II ORDERING PHYSICIAN: BRAULIO BRIDGES MD PROCEDURE: RENAL - US RENAL SONOGRAM EXAMINATION: Renal ultrasound. COMPARISON: None provided. HISTORY: acute renal failure, uncontrolled DM II FINDINGS: The right kidney measures 9.9 cm and is normal in echotexture. The left kidney measures 9.2 cm and is normal in echotexture. There are no focal renal lesions. There are no renal stones. There is no hydronephrosis. There is mild debris noted in the urinary bladder. Cystitis should be excluded. IMPRESSION: Normal kidneys. No hydronephrosis Mild debris noted in the urinary bladder. Cystitis should be excluded. /[place] DICTATED BY: PATRICIA LAWSON MD DATE: 08/30/242022 PATIENT: CHADD MAGDALENO MR#: [id number] : 1960 SEX: M AGE: 63 LOCATION: [facility] ORDER 23 STATUS: ADM IN REPORT#: [id number] SERVICE 16 REASON: non healing left foot wound with necrotic toes, assess for severe PAD ORDERING PHYSICIAN: BRAULIO BRIDGES MD PROCEDURE: ART B LE - US ARTERIAL BILAT LOW EXT DUPL EXAMINATION: DUPLEX ULTRASOUND EXAMINATION OF THE BILATERAL LOWER EXTREMITY ARTERIES. CLINICAL HISTORY: Non-healing wound in the left, to assess for peripheral arterial disease. COMPARISON: Lower extremity arterial doppler dated 12/29/2020. FINDINGS: Peak systolic velocities within the right lower arteries are as follows: Common femoral artery: 56 cm/s. Superficial femoral artery: 55 cm/s at proximal, 71 cm/s at mid, and 50 cm/s at distal segments. Popliteal artery: 28 cm/s at proximal and 37 cm/s at distal segments. The right lower limb arteries demonstrate biphasic waveforms in all arteries. The below knee arteries are not assessed, post amputation status. Peak systolic velocities within the left lower arteries are as follows: Common femoral artery: 66 cm/s. Superficial femoral artery: 71 cm/s at proximal, 72 cm/s at mid, and 72 cm/s at distal segments. Popliteal artery: 56 cm/s at proximal and 55 cm/s at distal segments. Posterior tibial artery: 30 cm/s. Anterior tibial artery: 47 cm/s. Dorsalis pedis artery: 67 cm/s. The left lower limb arteries demonstrate biphasic waveforms in all arteries other than posterior tibial, anterior tibial, and dorsalis pedis arteries which demonstrate monophasic waveforms. There is intimal wall thickening in both lower limb arteries. IMPRESSION: Mild intimal wall thickening in both the lower limb arteries. Both lower limb arteries demonstrate biphasic waveforms in all arteries other than left posterior tibial, anterior tibial, and dorsalis pedis arteries which demonstrate monophasic waveforms. No flow limiting lesions. /[place] DICTATED BY: PATRICIA LASWON MD DATE: 08/30/242034 PATIENT: CHADD MAGDALENO MR#: [id number] : 1960 SEX: M AGE: 63 LOCATION: [facility] ORDER 1501 STATUS: ADM IN REPORT#: [id number] SERVICE 1500 REASON: SEPSIS ORDERING PHYSICIAN: IVON UNDERWOOD MD PROCEDURE: FT 3VW LT - FOOT COMP 3+VWS LT EXAM: CR Left foot, 3 View. CLINICAL HISTORY: SEPSIS COMPARISON: Comparison: Radiograph dated September 21, 2016 Findings: AP, oblique, lateral views of the left foot are submitted. Interval amputation of the great toe from the distal metatarsal. There is edema and subcutaneous emphysema within the soft tissues overlying the first metatarsal. Presumed interval amputation of the second toe from the mid to distal second proximal phalanx and of the third toe from the distal interphalangeal joint. Clinical correlation is advised. There is suggestion of bone loss and cortical irregularities seen within the mid diaphyses of the 3rd and 4th proximal phalanxes. Findings may reflect osteomyelitis. Recommend contrast-enhanced MRI of the midfoot/forefoot for further evaluation. IMPRESSION: 1. Status post interval amputation of great toe, second toe, and third toe with soft tissue edema and subcutaneous emphysema overlying the first metatarsal. 2. Possible osteomyelitis of 3rd and 4th proximal phalanxes. Recommend MRI of the midfoot/forefoot for further evaluation. /[place] DICTATED BY: GISEL CHACON Jr., MD DATE: 08/30/241855 ASSESSMENT: Acute renal failure Acute rhabdomyolysis Anemia Hyponatremia Sepsis Blood culture positive for Gram-negative rods Gas/wet gangrene of the left foot with extensively necrotic toes and underlying acute osteo-myelitis of multiple toe Poorly controlled type 2 diabetes mellitus Significant leukocytosis secondary to underlying septicemia PLAN: Labs, diagnostic, radiologic exams reviewed and interpreted by myself and supervising physician. We have reviewed external records in detail Pending possible peripheral angiogram on as per Cardiology recommendations 1.5 Fluid restriction is advised Require close monitoring of renal function and electrolytes Order CBC, CMP, and electrolytes in am Continue with antibiotics as per ID BiPAP as necessary, for respiratory distress Monitor blood pressure adjust medication doses as needed Avoid hypotensive episodes May use Dilaudid 0.5 mg IV every 6 hours as needed for severe pain Monitor blood sugars Strict intake, output, and daily weight should be monitored Please renally adjust medications Avoid nephrotoxic and nonsteroidal drugs Avoid contrast if possible Will continue to monitor renal function, anemia, electrolytes Treatment plan discussed with patient Questions were answered We have discussed with the other team physicians in detail about the care plan We will continue to monitor the patient closely ATTESTATION BY PHYSICIAN I have seen and examined the patient. I reviewed the documentation, medical decision making, and treatment plan as noted by the mid-level provider above. I agree with the findings and plan of care. EMMIE KRAMER MD, [facility] Sep 11, 2024 14:41
[2024-09-11 15:56] VITALS: BP 93/53; PULSE 85; RESP 18; TEMP 98.6
[2024-09-11 20:00] VITALS: BP 105/55; PULSE 85; RESP 16; TEMP 97.6
--- NOTE | 2024-09-11 20:32 | PN ---
INFECTIOUS DISEASE PROGRESS NOTE Date of Service: Sep 11, 2024 SUBJECTIVE: Patient was seen at bedside in room 412. Patient is s/p left TMA on 08/31/2024. Patient reported having good appetite and no nausea or vomiting. Continues on Zosyn and linezolid IV. Case management working on SNF placement. PHYSICAL EXAM EYES: Anicteric. Pupils equal and reactive. HENT: No oral thrush seen, moist Oral mucosa. NECK: Supple, no JVD or thyromegaly. LUNGS: Good air entry. No rales, no rhonchi. CARDIOVASCULAR: S1, S2 regular. No murmur heard. ABDOMEN: Soft, non tender, bowel sounds present, no organomegaly. CENTRAL NERVOUS SYSTEM: Awake, alert, oriented x 3. SKIN: No rashes, no swelling. LYMPHATICS: No peripheral lymphadenopathy MUSCULOSKELETAL: No joint swelling, erythema or tenderness. EXTREMITIES: Dry dressing to left lower extremity. Left TMA. History of right BKA BACK: No deformity, no pressure ulcer. GENITOURINARY: No dysuria or hematuria. Vital Sign (Last 12 Hours) 09/11/24 09/11/24 11:03 15:56 Temp 97.5 98.6 Pulse 83 85 Resp 16 18 B/P (MAP) 95/56 93/53 Pulse Ox 98 98 O2 Delivery Room Air Room Air Intake & Output (last 24hrs) 09/10/24 09/10/24 09/11/24 15:00 23:00 07:00 Intake Total 420 ml 450 ml 300 ml Balance 420 ml 450 ml 300 ml LABS: Laboratory: Test 09/11/24 19:14 09/11/24 06:10 Range/Units Whole Blood Glucose 127 H 70-110 MG/DL White Blood Count 8.6 4.8-10.8 K/uL Red Blood Count 2.39 L 4.50-6.20 MIL/uL Hemoglobin 7.1 L 14.0-18.0 g/dL Hematocrit 21.8 L 42-54 % Mean Corpuscular Volume 91.2 79-99 fL Mean Corpuscular Hemoglobin 29.7 27.0-33.0 pg Mean Corpuscular Hemoglobin Concent 32.6 32.0-36.0 g/dL Red Cell Distribution Width 13.5 11.0-15.5 % Platelet Count 191 130-400 K/uL Mean Platelet Volume 9.5 7.5-10.5 fL Immature Granulocyte % (Auto) 0.5 0-1 % Neutrophils (%) (Auto) 87.2 H 40.0-77.0 % Lymphocytes (%) (Auto) 10.6 L 21.0-51.0 % Monocytes (%) (Auto) 0.5 L 3.0-13.0 % Eosinophils (%) (Auto) 0.9 0.0-8.0 % Basophils (%) (Auto) 0.3 0.0-5.0 % Neutrophils # (Auto) 7.5 1.8-7.7 K/uL Lymphocytes # (Auto) 0.9 L 1.0-4.8 K/uL Monocytes # (Auto) 0.0 L 0.1-1.0 K/uL Eosinophils # (Auto) 0.08 0.00-0.70 K/uL Basophils # (Auto) 0.03 0.00-0.20 K/uL Absolute Immature Granulocyte (auto 0.04 0-1 K/uL Nucleated Red Blood Cells 0.0 0.0-0.19 % Sodium Level 133 L 136-145 mmol/L Potassium Level 4.1 3.5-5.1 mmol/L Chloride Level 101 101-111 mmol/L Carbon Dioxide Level 24 21-32 mmol/L Blood Urea Nitrogen 32 H 7-18 mg/dL Creatinine 1.5 H 0.5-1.3 mg/dL Glomerular Filtration Rate Calc 51 >90 mL/min Random Glucose 157 H 70-105 mg/dL Total Calcium 7.9 L 8.5-10.1 mg/dL Magnesium Level 2.10 1.80-2.40 mg/dL Total Bilirubin 0.4 0.2-1.0 mg/dL Aspartate Amino Transf (AST/SGOT) 15 10-37 U/L Alanine Aminotransferase (ALT/SGPT) 10 L 12-78 U/L Alkaline Phosphatase 57 50-136 U/L Total Protein 5.3 L 6.0-8.3 g/dL Albumin 1.6 L 3.5-5.0 g/dL ASSESSMENT: Left foot diabetic ulcer with polymicrobial infection, possible osteomyelitis, status post transmetatarsal amputation on 08/31/2024. Proteus mirabilis bacteremia. Urinary tract infection with ESBL, E coli and Proteus mirabilis. Leukocytosis, resolved. Peripheral Artery disease. Diabetes mellitus Chronic kidney disease. Chronic Anemia. PLAN: Continue linezolid IV. Continue Zosyn. Continue pain management. Continue antidiabetics. Continue wound care. Will need 4 weeks of IV antibiotics. Case management working on SNF placement. This case was reviewed and discussed with my supervising physician and the above assessment and plan was formulated and agreed upon. ATTESTATION BY PHYSICIAN I have seen and examined the patient. I reviewed the documentation, medical decision making, and treatment plan as noted by the mid-level provider above. I agree with the findings and plan of care. SUSANNE BETTENCOURT MD, [facility] Sep 11, 2024 20:32
[2024-09-12] VITALS: BP 110/60; PULSE 86; RESP 20; TEMP 97.9
[2024-09-12 03:15] VITALS: BP 110/58; PULSE 87; RESP 20; TEMP 98
[2024-09-12 05:23] LABS: NUCLEATED RED BLOOD CELLS 0.0 % (0.0-0.19); PLATELET COUNT (AUTO) 162.0 K/uL (130-400); RED BLOOD CELL COUNT(AUTO) 2.56 MIL/uL (4.50-6.20); RED CELL DISTRIBUTION WIDTH 13.4 % (11.0-15.5); WHITE BLOOD COUNT (AUTO) 9.0 K/uL (4.8-10.8)
[2024-09-12 05:54] LABS: ASPARTATE AMINOTRANSFERASE 15.0 U/L (10-37); CREATININE 1.4 mg/dL (0.5-1.3); GLOMERULAR FILTR. RATE CALC 55.0 mL/min (>90); GLUCOSE,RANDOM 145.0 mg/dL (70-105); SODIUM SERUM 134.0 mmol/L (136-145); TOTAL PROTEIN, SERUM 5.4 g/dL (6.0-8.3); UREA NITROGEN, BLOOD 30.0 mg/dL (7-18)
--- NOTE | 2024-09-12 07:41 | PN ---
[facility] PROGRESS NOTE Date of Service: Sep 12, 2024 Time of Service: 07:41 SUBJECTIVE: The patient is a 63-year-old male with a significant medical history of poorly controlled type 2 diabetes mellitus, peripheral arterial disease, and a prior right [id number] amputation in 2020 due to right foot gangrene and necrotizing fasciitis. He presented to the emergency room on August 30, 2024, with worsening chronic wounds on the toes of his left foot, which had become increasingly necrotic and foul-smelling over the past several weeks. He also reported experiencing fever and chills. On admission, the patient was febrile with a maximum temperature of 100.0F, tachycardic with a heart rate of 102 bpm, and hypotensive with a blood pressure of 81/50 mmHg. Laboratory tests revealed leukocytosis with a WBC count of 21,400, anemia with a hemoglobin level of 10.3, and elevated creatinine at 2.0, indicating possible renal impairment. Blood cultures were positive for Gram- negative rods, later identified as Proteus mirabilis, and urine cultures showed growth of E. coli and Proteus mirabilis. The patient was admitted for management of wet gangrene of the left foot with suspected chronic osteomyelitis. He underwent a transmetatarsal amputation of the left foot on August 31, 2024, performed by Dr. Lim, which he tolerated well. Postoperatively, he was treated with broad-spectrum IV antibiotics, including Zosyn and linezolid, and received consultations from Podiatry, Infectious Disease, and Nephrology. Despite initial improvement, his white blood cell count remained elevated, and he required ongoing wound care and monitoring. Throughout his hospital stay, the patient remained stable, with vital signs improving and leukocytosis gradually resolving. He was alert, oriented, and reported adequate pain control. Case management coordinated his discharge to a long-term acute care facility ([facility]) for continued medical care, pending insurance approval. But apparently he got accepted to [facility]. Upon evaluation and chart review, it was noted that the business development associate has recommended a cardiology consultation to assess the patient's circulation, given his peripheral vascular disease. Dr. De Paz has suggested a transcutaneous oximetry (TCOM) and a possible angiogram to be performed on to further evaluate and manage his vascular status. The patient remains stable and continues to receive appropriate wound care and medical management. Today, patient was noted with positive stool occult blood, stable H and H, we will be following recommendations from the dexigraph operator hence consulting wellness specialist due to positive stool occult blood and. GI team recommended EGD tomorrow. I explained this to the patient and he verbalized understanding. REVIEW OF SYSTEMS CONSTITUTIONAL: fevers, chills, malaise, poor oral intake NEUROLOGICAL: Denies headache, amaurosis fugax, motor weakness, sensory deficit, vertigo/spinning sensation, gait abnormalities, or tremors. ENT: No hearing loss, otalgia, otorrhea, rhinitis, rhinorrhea, hoarseness, or sore throat. CARDIOVASCULAR: Denies any exertional angina, dyspnea on exertion, orthopnea, paroxysmal nocturnal dyspnea, palpitations, life-threatening arrhythmias, claudication. PULMONARY: Denies any shortness of breath, cough, phlegm/sputum, hemoptysis, pleuritic chest pain. SLEEP: Denies morning headaches, daytime somnolence or napping. Denies difficulty falling asleep, staying asleep, waking from sleep. Denies knowledge of snoring. GASTROINTESTINAL: Denies any type of dysphagia to either liquids or solids. Denies nausea, vomiting, pyrosis, early satiety, abdominal pain, diarrhea, constipation, or changes in stool consistency or caliber. Denies coffee-ground emesis, hematemesis, hematochezia, or melanotic stools. GENITOURINARY: Denies frequency, urgency, nocturia, hematuria or incontinence (Storage/Irritative symptoms.) Low urinary stream, straining to void, urinary intermittency or hesitancy, splitting of the voiding stream, terminal dribbling. ENDOCRINOLOGIC: Hx of type 2 Diabetes mellitus HEMATOLOGIC: Denies thrombophilia/previous clots, or coagulopathy/bleeding disorders. ONCOLOGIC: Denies personal history of malignancy. DERMATOLOGIC: foul smelling necrotic toes of the left foot with non healing wounds PSYCHIATRIC: Denies any suicidal or homicidal ideation. Denies hallucinations. PHYSICAL EXAM GENERAL APPEARANCE: The patient is awake, alert, and oriented, in no acute cardiopulmonary distress. NEUROLOGICAL: Cranial nerves II-XII grossly intact. Motor is 5/5 in bilateral upper and lower extremities proximal to distal. No sensory deficits. HEENT: Face is symmetric. Pupils are equal and reactive. Extraocular movements are intact. NECK: Supple. No JVD. No thyromegaly. No submental, submandibular, pre-/postauricular, occipital or supraclavicular lymphadenopathy. CHEST: Normal chest expansion. No Telemetry. LUNGS: Absence of any rales, rhonchi or any wheezing. CARDIOVASCULAR: Regular. S1 and S2 normal. No appreciable rubs, murmurs or gallops. ABDOMEN: Soft, nontender, and nondistended. There is no rebound, voluntary guarding, or rigidity. : Deferred. No Sandhu. EXTREMITIES: Left foot noted to have extremely foul-smelling wound with necrotic toes noted from 2nd two fifth digit, area of erythema and surrounding cellulitic changes noted Vital Signs (last 8hr) Date Time Temp Pulse Resp B/P (MAP) Pulse Ox O2 Delivery O2 Flow Rate FiO2 09/12/24 03:15 98.1 87 20 110/58 99 Room Air 09/12/24 02:10 Room Air* 0 21 09/12/24 00:00 97.9 86 20 110/60 99 Room Air LABS: Laboratory: Test 09/12/24 05:00 09/12/24 04:59 09/11/24 22:05 09/11/24 06:10 Range/Units White Blood Count 9.0 4.8-10.8 K/uL Red Blood Count 2.56 L 4.50-6.20 MIL/uL Hemoglobin 7.4 L 14.0-18.0 g/dL Hematocrit 22.8 L 42-54 % Mean Corpuscular Volume 89.1 79-99 fL Mean Corpuscular Hemoglobin 28.9 27.0-33.0 pg Mean Corpuscular Hemoglobin Concent 32.5 32.0-36.0 g/dL Red Cell Distribution Width 13.4 11.0-15.5 % Platelet Count 162 130-400 K/uL Mean Platelet Volume 9.7 7.5-10.5 fL Nucleated Red Blood Cells 0.0 0.0-0.19 % Sodium Level 134 L 136-145 mmol/L Potassium Level 4.1 3.5-5.1 mmol/L Chloride Level 101 101-111 mmol/L Carbon Dioxide Level 23 21-32 mmol/L Blood Urea Nitrogen 30 H 7-18 mg/dL Creatinine 1.4 H 0.5-1.3 mg/dL Glomerular Filtration Rate Calc 55 >90 mL/min Random Glucose 145 H 70-105 mg/dL Total Calcium 7.8 L 8.5-10.1 mg/dL Total Bilirubin 0.5 # 0.2-1.0 mg/dL Aspartate Amino Transf (AST/SGOT) 15 10-37 U/L Alanine Aminotransferase (ALT/SGPT) 9 L 12-78 U/L Alkaline Phosphatase 56 50-136 U/L Total Protein 5.4 L 6.0-8.3 g/dL Albumin 1.7 L 3.5-5.0 g/dL Whole Blood Glucose 132 H 70-110 MG/DL Stool Occult Blood POSITIVE H NEGATIVE Immature Granulocyte % (Auto) 0.5 0-1 % Neutrophils (%) (Auto) 87.2 H 40.0-77.0 % Lymphocytes (%) (Auto) 10.6 L 21.0-51.0 % Monocytes (%) (Auto) 0.5 L 3.0-13.0 % Eosinophils (%) (Auto) 0.9 0.0-8.0 % Basophils (%) (Auto) 0.3 0.0-5.0 % Neutrophils # (Auto) 7.5 1.8-7.7 K/uL Lymphocytes # (Auto) 0.9 L 1.0-4.8 K/uL Monocytes # (Auto) 0.0 L 0.1-1.0 K/uL Eosinophils # (Auto) 0.08 0.00-0.70 K/uL Basophils # (Auto) 0.03 0.00-0.20 K/uL Absolute Immature Granulocyte (auto 0.04 0-1 K/uL Magnesium Level 2.10 1.80-2.40 mg/dL Current Medications Medications (Trade) Dose Ordered Sig/Nathaly Route PRN Reason Start Time Stop Time Status Last Admin Dose Admin Acetaminophen (TYLenol 325MG TAB) 650 mg Q6H PRN PO MILD PAIN (1-3) 08/30/24 17:30 09/29/24 17:29 Atorvastatin Calcium (LIPItor 20MG) 20 mg HS PO 09/11/24 21:00 10/11/24 20:59 09/11/24 21:17 20 MG Betamethasone Valerate (Betamethasone Valerate) 1 APPLICATION TID TP 09/01/24 14:00 10/01/24 13:59 Cancel Clopidogrel Bisulfate (plaVIX 75MG) 75 mg DAILY PO 09/02/24 09:00 10/02/24 08:59 09/11/24 09:25 75 MG Dextrose (D50w) 50 ml AD PRN IV HYPOGLYCEMIA PROTOCOL 08/30/24 18:00 09/29/24 17:59 Ferrous Sulfate (Ferrous Sulfate) 325 mg DAILY PO 09/11/24 11:00 10/11/24 10:59 09/11/24 11:22 325 MG Glucagon (Glucagon 1mg Kit) 1 mg AD PRN IM HYPOGLYCEMIA PROTOCOL 08/30/24 18:00 09/29/24 17:59 Hydromorphone HCl (DiLAUDid 0.5MG INJ) 0.2 mg Q6H PRN IVP SEVERE PAIN (7-10) 08/30/24 17:30 09/04/24 17:29 DC Insulin Human Regular (humuLIN R 100 UNIT/ML 3ML) INSULIN SLIDING SCAL... ACHS SQ 08/30/24 21:00 09/29/24 20:59 09/07/24 19:56 2 UNIT Linezolid 300 ml @ 150 mls/hr Q12H IV 09/10/24 12:30 09/20/24 12:29 09/12/24 00:34 150 MLS/HR Linezolid 300 ml @ 150 mls/hr Q12H IV 08/30/24 18:00 08/30/24 17:37 DC Linezolid 300 ml @ 150 mls/hr Q12H IV 08/30/24 20:00 09/09/24 19:59 DC 09/09/24 08:50 150 MLS/HR Metformin HCl (glucoPHAGE) 1,000 mg BIDMEALS PO 09/07/24 17:00 09/11/24 14:00 DC 09/11/24 09:25 1,000 MG Ondansetron HCl (zoFRAN 4MG INJ) 4 mg Q6H PRN IVP NAUSEA/VOMITING 08/30/24 17:30 09/29/24 17:29 Pharmacy Profile Note (Pharmacy Communication) 1 each ONCE MISC 08/30/24 17:30 09/01/24 07:16 DC 08/30/24 17:56 1 EACH Piperacillin Sod/ Tazobactam Sod (Zosyn 3.375gm+NS 50ml) 3.375 gm Q12H IVPB 08/30/24 21:00 08/31/24 06:42 DC 08/30/24 23:06 3.375 GM Piperacillin Sod/ Tazobactam Sod (Zosyn 3.375gm+NS 50ml) 3.375 gm Q8H IVPB 09/10/24 15:00 09/20/24 14:59 09/11/24 21:19 3.375 GM Piperacillin Sod/ Tazobactam Sod (Zosyn 3.375gm+NS 50ml) 3.375 gm Q8H IVPB 08/31/24 07:00 09/09/24 20:59 DC 09/09/24 15:28 3.375 GM Potassium Chloride 100 ml @ 100 mls/hr AD PRN IV POTASSIUM PROTOCOL 09/06/24 08:00 10/06/24 07:59 Potassium Chloride (K-Dur/Klor-Con 20meq) 20 meq AD PRN PO POTASSIUM PROTOCOL 09/06/24 08:00 10/06/24 07:59 09/06/24 15:41 20 MEQ Potassium Chloride (KCl 10% Elixir 20meq/15ml) 20 meq AD PRN PO POTASSIUM PROTOCOL 09/06/24 08:00 10/06/24 07:59 Sodium Chloride 1,000 ml @ 75 mls/hr [id number] IV 08/30/24 20:00 09/01/24 12:55 DC 08/31/24 22:29 75 MLS/HR Thiamine HCl (Vitamin B-1) 100 mg Q24H IVP 08/30/24 18:00 09/01/24 16:47 DC 08/31/24 18:33 100 MG Thiamine HCl (Vitamin B-1) 100 mg Q24H IVP 09/01/24 20:00 10/01/24 19:59 09/11/24 21:17 100 MG Vitamin B Complex/ Vit C/Folic Acid (Nephrovite Tablet) 1 cap DAILY PO 09/01/24 09:00 10/01/24 08:59 09/11/24 09:25 1 CAP DIAGNOSTICS / RADIOLOGY: [ ] ASSESSMENT: Anemia, positive fecal occult blood Gas/wet gangrene of the left foot with extensively necrotic toes and underlying acute osteo-myelitis of multiple toes, POA Sepsis 2/2 complicated soft tissue infection of the left foot with underlying osteomyelitis)/Gram-negative bacteremia, POA Status post transmetatarsal amputation left foot 08/31/2024 Gram-negative bacteremia secondary secondary to Proteus mirabilis POA Urinary tract infection, secondary to E coli and Proteus mirabilis, POA Left foot wound culture positive for Proteus mirabilis Poorly controlled type 2 diabetes mellitus, POA Acute renal failure, POA Acute rhabdomyolysis, POA Anemia, POA Significant leukocytosis secondary to underlying septicemia, POA Moderate hyponatremia, POA Hx of right BKA, POA PLAN PLAN: Treatment: Anemia; positive occult blood-wellness specialist consulted, plans for EGD tomorrow, NPO after midnight Surgical: The patient underwent a transmetatarsal amputation of the left foot with partial medial cuneiformectomy and tendon transfer. Medications: Continue IV antibiotics with Zosyn and Zyvox as per Infectious Disease recommendations. The plan is to continue antibiotics for four weeks. A PICC line has been placed and is ready for use. Wound Care: Wound packing with betadine sulcos and complex layered primary wound closure is ongoing. Case Management: Coordination for placement at [facility] is pending insurance approval. The patient has been accepted at a senior care facility in [facility]. Cardiology: A cardiology consultation is recommended for further evaluation of circulation. A transcutaneous oximetry (TCOM) and possible angiogram are scheduled for , 09/13/2024. Tests: Final wound culture results show Proteus mirabilis and Staphylococcus aureus. Blood cultures revealed Proteus mirabilis; intraoperative cultures showed Pro teus mirabilis and Staphylococcus aureus. Final urine culture showed E. coli and Proteus mirabilis. CT angiogram of bilateral lower extremities indicated atherosclerosis and occlusions. Patient Education: Discussed post-operative care and emphasized the importance of completing the full course of antibiotics. Disposition: The patient will continue to be monitored in the hospital setting due to the complexity of his condition and post-operative status. Further evaluation by the dexigraph operator is pending to assess circulation issues. ATTESTATION BY PHYSICIAN I have seen and examined the patient. I reviewed the documentation, medical decision making, and treatment plan as noted by the mid-level provider above. I agree with the findings and plan of care. JERO RICHARDS MD, [facility] Sep 12, 2024 07:41
[2024-09-12 08:00] VITALS: BP 91/52; PULSE 88; RESP 18; TEMP 97.7
--- NOTE | 2024-09-12 10:24 | CONS ---
GASTROENTEROLOGY CONSULTATION NOTE Date of Consultation: Sep 12, 2024 Time of Consultation: 10:24 History of Present Illness: this is a 64-year-old male with past medical history of type 2 diabetes, PAD, right below the knee amputation in 2020 who presented due to right foot gangrene and necrotizing fasciitis. We were consulted due to anemia and positive FOBT. No history of EGD or colonoscopy. Review of Systems: CONSTITUTIONAL: No malaise or change in sensation of wellbeing. ENMT: No rhinorrhea, otorrhea, sinus pain, ear ache. CARDIOVASCULAR: No angina, palpitations, orthopnea or paroxysmal dyspnea. RESPIRATORY: No SOB. GASTROINTESTINAL: No abdominal pain, nausea, vomiting, diarrhea, hematemesis, melena or change in the patient's habitual bowel movements consistency/number. GENITOURINARY: No dysuria, hematuria or change in bladder continence. MUSCULOSKELETAL: No new muscle pain or decrease in muscular strength. No new joint swelling, redness or tenderness. SKIN: No new rash. Past Medical History: [ ] Past Surgical History: [ ] Past Social History: [ ] Family History: [ ] Coded Allergies: No Known Allergies (Unverified Allergy, Unknown, 09/21/16) Physical Exam: GEN: Awake, alert, oriented in person, time and place, and in no acute distress. HEENT: No sinus tenderness. Tympanic membranes were not examined. No rhinorrhea. Oral pharyngeal mucosa is pink, moist and within normal limits. Neck is supple with no cervical lymphadenopathy, thyromegaly or JVD. CHEST: Inspection, palpation and percussion of the chest were unremarkable. Lung auscultation revealed normal breath sounds bilaterally. CARDIAC: PMI is within normal limits. Heart sounds are regular. Normal S1, S2. No gallop or murmur. ABD: Soft, non-tender and not distended. No peritoneal signs on palpation. No organomegaly. Normal bowel sounds. EXT: No cyanosis or clubbing. No edema. SKIN: Intact. No rashes. JOINTS: No evidence of synovitis or acute arthritis. NEURO: Alert and oriented to name, place and person. Cranial nerve examination is unremarkable. No focal motor deficits. Normal speech. Gait is normal. Strength is normal. Vital Sign (Last 24 Hours) 09/12/24 09/12/24 02:10 08:00 Temp 97.7 Pulse 88 Resp 18 B/P (MAP) 91/52 Pulse Ox 98 O2 Delivery Room Air O2 Flow Rate 0 FiO2 21 Intake & Output (last 24hrs) 09/11/24 09/11/24 09/12/24 15:00 23:00 07:00 Intake Total 1200 ml 200 ml Balance 1200 ml 200 ml Laboratory: [ ] Laboratory: Test 09/12/24 05:00 09/12/24 04:59 09/11/24 22:05 09/11/24 06:10 Range/Units White Blood Count 9.0 4.8-10.8 K/uL Red Blood Count 2.56 L 4.50-6.20 MIL/uL Hemoglobin 7.4 L 14.0-18.0 g/dL Hematocrit 22.8 L 42-54 % Mean Corpuscular Volume 89.1 79-99 fL Mean Corpuscular Hemoglobin 28.9 27.0-33.0 pg Mean Corpuscular Hemoglobin Concent 32.5 32.0-36.0 g/dL Red Cell Distribution Width 13.4 11.0-15.5 % Platelet Count 162 130-400 K/uL Mean Platelet Volume 9.7 7.5-10.5 fL Nucleated Red Blood Cells 0.0 0.0-0.19 % Sodium Level 134 L 136-145 mmol/L Potassium Level 4.1 3.5-5.1 mmol/L Chloride Level 101 101-111 mmol/L Carbon Dioxide Level 23 21-32 mmol/L Blood Urea Nitrogen 30 H 7-18 mg/dL Creatinine 1.4 H 0.5-1.3 mg/dL Glomerular Filtration Rate Calc 55 >90 mL/min Random Glucose 145 H 70-105 mg/dL Total Calcium 7.8 L 8.5-10.1 mg/dL Total Bilirubin 0.5 # 0.2-1.0 mg/dL Aspartate Amino Transf (AST/SGOT) 15 10-37 U/L Alanine Aminotransferase (ALT/SGPT) 9 L 12-78 U/L Alkaline Phosphatase 56 50-136 U/L Total Protein 5.4 L 6.0-8.3 g/dL Albumin 1.7 L 3.5-5.0 g/dL Whole Blood Glucose 132 H 70-110 MG/DL Stool Occult Blood POSITIVE H NEGATIVE Immature Granulocyte % (Auto) 0.5 0-1 % Neutrophils (%) (Auto) 87.2 H 40.0-77.0 % Lymphocytes (%) (Auto) 10.6 L 21.0-51.0 % Monocytes (%) (Auto) 0.5 L 3.0-13.0 % Eosinophils (%) (Auto) 0.9 0.0-8.0 % Basophils (%) (Auto) 0.3 0.0-5.0 % Neutrophils # (Auto) 7.5 1.8-7.7 K/uL Lymphocytes # (Auto) 0.9 L 1.0-4.8 K/uL Monocytes # (Auto) 0.0 L 0.1-1.0 K/uL Eosinophils # (Auto) 0.08 0.00-0.70 K/uL Basophils # (Auto) 0.03 0.00-0.20 K/uL Absolute Immature Granulocyte (auto 0.04 0-1 K/uL Magnesium Level 2.10 1.80-2.40 mg/dL Current Medications Medications (Trade) Dose Ordered Sig/Nathaly Route PRN Reason Start Time Stop Time Status Last Admin Dose Admin Acetaminophen (TYLenol 325MG TAB) 650 mg Q6H PRN PO MILD PAIN (1-3) 08/30/24 17:30 09/29/24 17:29 Atorvastatin Calcium (LIPItor 20MG) 20 mg HS PO 09/11/24 21:00 10/11/24 20:59 09/11/24 21:17 20 MG Betamethasone Valerate (Betamethasone Valerate) 1 APPLICATION TID TP 09/01/24 14:00 10/01/24 13:59 Cancel Clopidogrel Bisulfate (plaVIX 75MG) 75 mg DAILY PO 09/02/24 09:00 10/02/24 08:59 09/12/24 10:06 75 MG Dextrose (D50w) 50 ml AD PRN IV HYPOGLYCEMIA PROTOCOL 08/30/24 18:00 09/29/24 17:59 Ferrous Sulfate (Ferrous Sulfate) 325 mg DAILY PO 09/11/24 11:00 10/11/24 10:59 09/12/24 10:06 325 MG Glucagon (Glucagon 1mg Kit) 1 mg AD PRN IM HYPOGLYCEMIA PROTOCOL 08/30/24 18:00 09/29/24 17:59 Hydromorphone HCl (DiLAUDid 0.5MG INJ) 0.2 mg Q6H PRN IVP SEVERE PAIN (7-10) 08/30/24 17:30 09/04/24 17:29 DC Insulin Human Regular (humuLIN R 100 UNIT/ML 3ML) INSULIN SLIDING SCAL... ACHS SQ 08/30/24 21:00 09/29/24 20:59 09/07/24 19:56 2 UNIT Linezolid 300 ml @ 150 mls/hr Q12H IV 09/10/24 12:30 09/20/24 12:29 09/12/24 00:34 150 MLS/HR Linezolid 300 ml @ 150 mls/hr Q12H IV 08/30/24 18:00 08/30/24 17:37 DC Linezolid 300 ml @ 150 mls/hr Q12H IV 08/30/24 20:00 09/09/24 19:59 DC 09/09/24 08:50 150 MLS/HR Metformin HCl (glucoPHAGE) 1,000 mg BIDMEALS PO 09/07/24 17:00 09/11/24 14:00 DC 09/11/24 09:25 1,000 MG Ondansetron HCl (zoFRAN 4MG INJ) 4 mg Q6H PRN IVP NAUSEA/VOMITING 08/30/24 17:30 09/29/24 17:29 Pharmacy Profile Note (Pharmacy Communication) 1 each ONCE MISC 08/30/24 17:30 09/01/24 07:16 DC 08/30/24 17:56 1 EACH Piperacillin Sod/ Tazobactam Sod (Zosyn 3.375gm+NS 50ml) 3.375 gm Q12H IVPB 08/30/24 21:00 08/31/24 06:42 DC 08/30/24 23:06 3.375 GM Piperacillin Sod/ Tazobactam Sod (Zosyn 3.375gm+NS 50ml) 3.375 gm Q8H IVPB 09/10/24 15:00 09/20/24 14:59 09/12/24 10:07 3.375 GM Piperacillin Sod/ Tazobactam Sod (Zosyn 3.375gm+NS 50ml) 3.375 gm Q8H IVPB 08/31/24 07:00 09/09/24 20:59 DC 09/09/24 15:28 3.375 GM Potassium Chloride 100 ml @ 100 mls/hr AD PRN IV POTASSIUM PROTOCOL 09/06/24 08:00 10/06/24 07:59 Potassium Chloride (K-Dur/Klor-Con 20meq) 20 meq AD PRN PO POTASSIUM PROTOCOL 09/06/24 08:00 10/06/24 07:59 09/06/24 15:41 20 MEQ Potassium Chloride (KCl 10% Elixir 20meq/15ml) 20 meq AD PRN PO POTASSIUM PROTOCOL 09/06/24 08:00 10/06/24 07:59 Sodium Chloride 1,000 ml @ 75 mls/hr [id number] IV 08/30/24 20:00 09/01/24 12:55 DC 08/31/24 22:29 75 MLS/HR Thiamine HCl (Vitamin B-1) 100 mg Q24H IVP 08/30/24 18:00 09/01/24 16:47 DC 08/31/24 18:33 100 MG Thiamine HCl (Vitamin B-1) 100 mg Q24H IVP 09/01/24 20:00 10/01/24 19:59 09/11/24 21:17 100 MG Vitamin B Complex/ Vit C/Folic Acid (Nephrovite Tablet) 1 cap DAILY PO 09/01/24 09:00 10/01/24 08:59 09/12/24 10:06 1 CAP Diagnostics / Radiology: [COPY/PASTE HERE IF NO REPORTS PLEASE DELETE SECTION] Assessment: Positive FOBT Acute blood loss anemia DM PAD Plan: EGD in [facility] [place] Sep 12, 2024 10:24
[2024-09-12 12:00] VITALS: BP 105/58; PULSE 79; RESP 16; TEMP 97.2
[2024-09-12 16:00] VITALS: BP 108/58; PULSE 84; RESP 16; TEMP 97.5
--- NOTE | 2024-09-12 16:41 | PN ---
INFECTIOUS DISEASE PROGRESS NOTE Date of Service: Sep 12, 2024 SUBJECTIVE: Patient was seen at bedside in room 412. Patient is s/p left TMA on 08/31/2024 and will be having a peripheral angiogram tomorrow. No fever, temperature is 97.7. We will continue on Zosyn and linezolid IV. PHYSICAL EXAM EYES: Anicteric. Pupils equal and reactive. HENT: No oral thrush seen, moist Oral mucosa. NECK: Supple, no JVD or thyromegaly. LUNGS: Good air entry. No rales, no rhonchi. CARDIOVASCULAR: S1, S2 regular. No murmur heard. ABDOMEN: Soft, non tender, bowel sounds present, no organomegaly. CENTRAL NERVOUS SYSTEM: Awake, alert, oriented x 3. SKIN: No rashes, no swelling. LYMPHATICS: No peripheral lymphadenopathy MUSCULOSKELETAL: No joint swelling, erythema or tenderness. EXTREMITIES: Dry dressing to left lower extremity. Left TMA. History of right BKA BACK: No deformity, no pressure ulcer. GENITOURINARY: No dysuria or hematuria. Vital Sign (Last 12 Hours) 09/12/24 09/12/24 09/12/24 08:00 12:00 16:00 Temp 97.7 97.2 97.5 Pulse 88 79 84 Resp 18 16 16 B/P (MAP) 91/52 105/58 108/58 Pulse Ox 98 99 100 O2 Delivery Room Air Room Air Room Air Intake & Output (last 24hrs) 0 09/11/24 09/11/24 09/12/24 15:00 23:00 07:00 Intake Total 1200 ml 200 ml Balance 1200 ml 200 ml LABS: Laboratory: Test 09/12/24 16:01 09/12/24 05:00 09/11/24 22:05 09/11/24 06:10 Range/Units Whole Blood Glucose 166 H 70-110 MG/DL White Blood Count 9.0 4.8-10.8 K/uL Red Blood Count 2.56 L 4.50-6.20 MIL/uL Hemoglobin 7.4 L 14.0-18.0 g/dL Hematocrit 22.8 L 42-54 % Mean Corpuscular Volume 89.1 79-99 fL Mean Corpuscular Hemoglobin 28.9 27.0-33.0 pg Mean Corpuscular Hemoglobin Concent 32.5 32.0-36.0 g/dL Red Cell Distribution Width 13.4 11.0-15.5 % Platelet Count 162 130-400 K/uL Mean Platelet Volume 9.7 7.5-10.5 fL Nucleated Red Blood Cells 0.0 0.0-0.19 % Sodium Level 134 L 136-145 mmol/L Potassium Level 4.1 3.5-5.1 mmol/L Chloride Level 101 101-111 mmol/L Carbon Dioxide Level 23 21-32 mmol/L Blood Urea Nitrogen 30 H 7-18 mg/dL Creatinine 1.4 H 0.5-1.3 mg/dL Glomerular Filtration Rate Calc 55 >90 mL/min Random Glucose 145 H 70-105 mg/dL Total Calcium 7.8 L 8.5-10.1 mg/dL Total Bilirubin 0.5 # 0.2-1.0 mg/dL Aspartate Amino Transf (AST/SGOT) 15 10-37 U/L Alanine Aminotransferase (ALT/SGPT) 9 L 12-78 U/L Alkaline Phosphatase 56 50-136 U/L Total Protein 5.4 L 6.0-8.3 g/dL Albumin 1.7 L 3.5-5.0 g/dL Stool Occult Blood POSITIVE H NEGATIVE Immature Granulocyte % (Auto) 0.5 0-1 % Neutrophils (%) (Auto) 87.2 H 40.0-77.0 % Lymphocytes (%) (Auto) 10.6 L 21.0-51.0 % Monocytes (%) (Auto) 0.5 L 3.0-13.0 % Eosinophils (%) (Auto) 0.9 0.0-8.0 % Basophils (%) (Auto) 0.3 0.0-5.0 % Neutrophils # (Auto) 7.5 1.8-7.7 K/uL Lymphocytes # (Auto) 0.9 L 1.0-4.8 K/uL Monocytes # (Auto) 0.0 L 0.1-1.0 K/uL Eosinophils # (Auto) 0.08 0.00-0.70 K/uL Basophils # (Auto) 0.03 0.00-0.20 K/uL Absolute Immature Granulocyte (auto 0.04 0-1 K/uL Magnesium Level 2.10 1.80-2.40 mg/dL ASSESSMENT: Left foot diabetic ulcer with polymicrobial infection, possible osteomyelitis, status post transmetatarsal amputation on 08/31/2024. Proteus mirabilis bacteremia. Urinary tract infection with ESBL, E coli and Proteus mirabilis. Leukocytosis, resolved. Peripheral Artery disease. Diabetes mellitus Chronic kidney disease. Chronic Anemia. PLAN: Continue linezolid IV. Continue Zosyn. Continue pain management. Continue antidiabetics. Continue wound care. Will need 4 weeks of IV antibiotics and Case management working on SNF placement. Patient is scheduled for a peripheral angiogram for tomorrow. This case was reviewed and discussed with my supervising physician and the above assessment and plan was formulated and agreed upon. ATTESTATION BY PHYSICIAN I have seen and examined the patient. I reviewed the documentation, medical decision making, and treatment plan as noted by the mid-level provider above. I agree with the findings and plan of care. SUSANNE BETTENCOURT MD, [facility] Sep 12, 2024 16:41
[2024-09-12 20:00] VITALS: BP 100/66; PULSE 83; RESP 18; TEMP 97.8
--- NOTE | 2024-09-12 20:11 | PN ---
SUBJECTIVE: The patient is a very pleasant 64-year-old diabetic, Latin-[place] male who is followed up for a transmetatarsal amputation of his left foot secondary to gangrene and osteomyelitis. He has had a hemoccult positive stool test and GI has been consulted and an EGD has been scheduled for tomorrow. He has been evaluated by Cardiology. They are planning possible arteriogram and angioplasty procedure on the left lower extremity on due to his peripheral vascular disease. The patient is being followed for anemia and elevated renal function, being followed by the Nephrology Service. He has been followed for a low albumin, currently 1.7, low total protein 5.4, blood glucose 166, BUN and creatinine 30 and 1.4. The patient is currently receiving IV Zyvox and Zosyn. His wound cultures have grown back Proteus mirabilis and Staph aureus and E. coli and Proteus from his urine. Dopplers of his left were abnormal. CT angiography showed occlusion of the anterior tibial artery. REVIEW OF SYSTEMS: CONSTITUTIONAL: No chills, no fevers, no night sweats. No nausea or vomiting. No diarrhea. HEENT: No problems with eyes, ears, nose, or throat. CARDIOVASCULAR: He has peripheral vascular disease, suspected of the anterior tibial artery on the left per arterial Doppler and CT angiography. Cardiology is planning possible arteriogram and angioplasty procedure on . RESPIRATORY: No shortness of breath. GENITOURINARY: No dysuria. GASTROINTESTINAL: No dysphagia. He has had hemoccult positive stool and is being evaluated by GI for EGD tomorrow. ENDOCRINE: Diabetes. PSYCHIATRIC: Denied any depression. MUSCULOSKELETAL: [id number] amputation on the right. Transmetatarsal amputation on the left. He has a demarcated necrosis of the plantar flap dorsal and medially on the left 2 x 3 cm squared area. OBJECTIVE: On examination today demarcated necrosis that is dry and stable to the dorsomedial aspect of the transmetatarsal amputation flap on the left. ASSESSMENT AND PLAN: Peripheral vascular disease, low albumin, and anemia, scheduled for EGD tomorrow by the GI Service due to hemoccult positive stool, polymicrobial wound infection to his foot, polymicrobial wound infection to his urine. The patient is receiving Zyvox and Zosyn. The patient has been followed for renal insufficiency, low albumin. His white count is stable. We will continue to follow the patient closely while in-house. TID: [id number] RECEIPT: [id number] MTDD
--- NOTE | 2024-09-12 20:31 | PN ---
NEPHROLOGY NOTE SUBJECTIVE: This patient has renal dysfunction, anemia, foot infection, and peripheral vascular disease. The patient is being present for peripheral angiogram. The patient is undergoing and has status post left TMA. This patient has a stool occult blood positive and further GI workup is in progress. No fevers, chills or rigors. No cough, ectopic or hemoptysis. No abdominal pain or nausea. No chest pain, no orthopnea. PHYSICAL EXAMINATION: GENERAL: Pale, no other distress. VITAL SIGNS: Blood pressure is 108/58, pulse 84, respiratory rate is 16. HEENT: Head is atraumatic, normocephalic. Pupils are round and reactive. Sclerae are anicteric. Conjunctivae not pale. Oral mucosa is not dry. NECK: Supple. No masses or bruits. Thyroid is palpable. Neck has no bruits. CHEST: Shows equal thoracic percussion note being resonant in all areas. CARDIAC: Regular rhythm. No rub. No S3 or S4. No parasternal heave. NEUROLOGIC: Neurologically unchanged. Nonfocal. No cranial nerves palsy. LABORATORY DATA: Labs have shown hemoglobin up to 7.4, hematocrit is 22, white cell count normal. BUN of 30, creatinine is 1.4. IMAGING STUDIES: Imaging studies are personally reviewed. Old records have been reviewed. PROBLEMS: * Renal failure. * Anemia. * Foot infection because of a peripheral angiogram. * Possibly GI bleeding. PLAN: The patient is a candidate for GI workup including EGD. Continued followup on renal function and electrolyte. Followup labs ordered. We have discussed with other team physician. Please avoid contrast, nonsteroidal drug and nephrotoxic. Follow up on overall status. Other conditions remain guarded. I have discussed with other team physicians in detail. Overall condition is poor. Thank you for this patient. TID: [id number] RECEIPT: [id number]
[2024-09-12] MEDS: LACTOBACILLUS RHAMNOSUS GG 1 EACH CAP.SPRINK PO SCH (21:17)
--- NOTE | 2024-09-12 23:48 | PN ---
Cardiology Progress Note Date of Service: 09/12/2024 Attending Cnc Service Engineer: Dr. Romain De Paz Primary Cnc Service Engineer: Dr. Vickey Villalpando Reason for Consult: PAD Problem List: -Sepsis -Leukocytosis -Bacteremia (Proteus mirabilis) -Gangrene (Proteus mirabilis, Staph aureus) with osteomyelitis affecting multiple digits of the left foot s/p left TMA done on 08/31/2024 -PAD, [place] category 5 symptoms (LLE) -UTI (E coli, Proteus mirabilis) -Acute on chronic renal insufficiency with baseline CKD stage III -Hyponatremia -Normocytic normochromic anemia -Positive fecal occult -Low normal LV systolic function (LVEF: 50-55% by echo done 09/21/2024) -HLP -DM2 -PAD s/p right BKA -Protein malnutrition -Noncompliance Subjective: This is a 64y/o male who was seen and evaluated at the bedside today. The patient denies any active complaints including chest pain, chest pressure, palpitations, shortness of breath, or lower extremity pain. There were no overnight reported events. The patient will first need to undergo GI evaluation before we can safely proceed with peripheral intervention. Vitals/Labs Vital Signs Date Time Temp Pulse Resp B/P (MAP) Pulse Ox O2 Delivery O2 Flow Rate FiO2 09/12/24 20:00 97.9 83 18 100/66 99 Room Air 09/12/24 20:00 0 21 General: Awake and alert. No acute distress. Chronically ill appearing. Cachetic and frail. HEENT: Normocephalic, atraumatic. EOMI. Oral mucosa was moist. Neck: No masses, JVD, or carotid bruits noted. Lungs: No respiratory distress. SCM. Bilaterally clear to auscultation. No obvious wheezing, rales, or rhonchi. Cardiac: Regular rate. Normal S1 and S2, +S4. No other obvious murmurs, rubs, or gallops noted. Abdomen: Soft, nontender, nondistended. No organomegaly. Normoactive bowel sounds x 4 quadrants. Extremities: No edema, clubbing, or cyanosis. Right BKA. The left TMA site is wrapped in a bulky dressing, so we are unable to assess distal pulses. Neuro: Cranial nerves II-XII are grossly intact. No obvious focal deficits identified. Laboratory Tests 09/12/24 05:00 Assessment: -Sepsis -Leukocytosis -Bacteremia (Proteus mirabilis) -Gangrene (Proteus mirabilis, Staph aureus) with osteomyelitis affecting multiple digits of the left foot s/p left TMA done on 08/31/2024 -PAD, [place] category 5 symptoms (LLE) -UTI (E coli, Proteus mirabilis) -Acute on chronic renal insufficiency with baseline CKD stage III -Hyponatremia -Normocytic normochromic anemia -Low normal LV systolic function (LVEF: 50-55% by echo done 09/21/2024) -HLP -DM2 -PAD s/p right BKA -Protein malnutrition -Noncompliance Plan: 1. PAD, [place] category 5 symptoms (LLE) -Of concern, is that the patient's underlying PAD will impact wound healing to the left TMA site. -The patient's worsening anemia with positive fecal occult are concerning for a GI etiology behind the blood loss. As a result, he must first undergo GI evaluation before we can safely proceed with a peripheral angiogram with possible intervention. -In the meantime, he will continue on clopidogrel 75 mg daily (which can be transitioned to aspirin 81 mg daily if clopidogrel must be held for a period of time prior to GI evaluation) and atorvastatin 20 mg QHS. -In addition, he should continue on IV antibiotic therapy and with aggressive wound care. This case was discussed with my Supervising Physician, Dr. Romain De Paz, and the above-mentioned plan was formulated and agreed upon. -Progress Note written by Imelda Bush, MSN, [employer], AGACNP-BC IMELDA BUSH NP Sep 12, 2024 23:48
[2024-09-13] VITALS (10 sets, daily range): BP systolic 103–155; BP diastolic 54–67; PULSE 83–85; RESP 16–20; TEMP 97.4–98.1; O2SAT 98
[2024-09-13 05:48] LABS: NUCLEATED RED BLOOD CELLS 0.0 % (0.0-0.19); PLATELET COUNT (AUTO) 118.0 K/uL (130-400); RED BLOOD CELL COUNT(AUTO) 2.25 MIL/uL (4.50-6.20); RED CELL DISTRIBUTION WIDTH 13.2 % (11.0-15.5); WHITE BLOOD COUNT (AUTO) 6.3 K/uL (4.8-10.8)
[2024-09-13 06:09] LABS: CREATININE 1.4 mg/dL (0.5-1.3); GLOMERULAR FILTR. RATE CALC 55.0 mL/min (>90); GLUCOSE,RANDOM 131.0 mg/dL (70-105); SODIUM SERUM 135.0 mmol/L (136-145); UREA NITROGEN, BLOOD 24.0 mg/dL (7-18)
--- NOTE | 2024-09-13 06:53 | PN ---
[facility] PROGRESS NOTE Date of Service: Sep 13, 2024 Time of Service: 06:48 SUBJECTIVE: The patient is a 63-year-old male with a significant medical history of poorly controlled type 2 diabetes mellitus, peripheral arterial disease, and a prior right [id number] amputation in 2020 due to right foot gangrene and necrotizing fasciitis. He presented to the emergency room on August 30, 2024, with worsening chronic wounds on the toes of his left foot, which had become increasingly necrotic and foul-smelling over the past several weeks. He also reported experiencing fever and chills. On admission, the patient was febrile with a maximum temperature of 100.0F, tachycardic with a heart rate of 102 bpm, and hypotensive with a blood pressure of 81/50 mmHg. Laboratory tests revealed leukocytosis with a WBC count of 21,400, anemia with a hemoglobin level of 10.3, and elevated creatinine at 2.0, indicating possible renal impairment. Blood cultures were positive for Gram- negative rods, later identified as Proteus mirabilis, and urine cultures showed growth of E. coli and Proteus mirabilis. The patient was admitted for management of wet gangrene of the left foot with suspected chronic osteomyelitis. He underwent a transmetatarsal amputation of the left foot on August 31, 2024, performed by Dr. Lim, which he tolerated well. Postoperatively, he was treated with broad-spectrum IV antibiotics, including Zosyn and linezolid, and received consultations from Podiatry, Infectious Disease, and Nephrology. Despite initial improvement, his white blood cell count remained elevated, and he required ongoing wound care and monitoring. Throughout his hospital stay, the patient remained stable, with vital signs improving and leukocytosis gradually resolving. He was alert, oriented, and reported adequate pain control. Case management coordinated his discharge to a long-term acute care facility ([facility]) for continued medical care, pending insurance approval. But apparently he got accepted to [facility] [place]. Upon evaluation and chart review, it was noted that the business excellence manager has recommended a cardiology consultation to assess the patient's circulation, given his peripheral vascular disease. Dr. De Paz has suggested a transcutaneous oximetry (TCOM) and a possible angiogram to be performed on to further evaluate and manage his vascular status. The patient remains stable and continues to receive appropriate wound care and medical management. Patient was noted with positive stool occult blood, he has been having downtrending H and H. GI recommended EGD today, unfortunately his hgb is at 6.7 today. He denies sob, dizziness at this time. We will close monitor, for the meantime we will repeat H/H now. Type and screen patient. If hgb is at 7 or less than 7, we will transfuse 1 unit PRBC. We will inform GI team. REVIEW OF SYSTEMS CONSTITUTIONAL: fevers, chills, malaise, poor oral intake NEUROLOGICAL: Denies headache, amaurosis fugax, motor weakness, sensory defic it, vertigo/spinning sensation, gait abnormalities, or tremors. ENT: No hearing loss, otalgia, otorrhea, rhinitis, rhinorrhea, hoarseness, or sore throat. CARDIOVASCULAR: Denies any exertional angina, dyspnea on exertion, orthopnea, paroxysmal nocturnal dyspnea, palpitations, life-threatening arrhythmias, claudication. PULMONARY: Denies any shortness of breath, cough, phlegm/sputum, hemoptysis, pleuritic chest pain. SLEEP: Denies morning headaches, daytime somnolence or napping. Denies difficulty falling asleep, staying asleep, waking from sleep. Denies knowledge of snoring. GASTROINTESTINAL: Denies any type of dysphagia to either liquids or solids. Denies nausea, vomiting, pyrosis, early satiety, abdominal pain, diarrhea, constipation, or changes in stool consistency or caliber. Denies coffee-ground emesis, hematemesis, hematochezia, or melanotic stools. GENITOURINARY: Denies frequency, urgency, nocturia, hematuria or incontinence (Storage/Irritative symptoms.) Low urinary stream, straining to void, urinary intermittency or hesitancy, splitting of the voiding stream, terminal dribbling. ENDOCRINOLOGIC: Hx of type 2 Diabetes mellitus HEMATOLOGIC: Denies thrombophilia/previous clots, or coagulopathy/bleeding disorders. ONCOLOGIC: Denies personal history of malignancy. DERMATOLOGIC: foul smelling necrotic toes of the left foot with non healing wounds PSYCHIATRIC: Denies any suicidal or homicidal ideation. Denies hallucinations. PHYSICAL EXAM GENERAL APPEARANCE: The patient is awake, alert, and oriented, in no acute cardiopulmonary distress. NEUROLOGICAL: Cranial nerves II-XII grossly intact. Motor is 5/5 in bilateral upper and lower extremities proximal to distal. No sensory deficits. HEENT: Face is symmetric. Pupils are equal and reactive. Extraocular movements are intact. NECK: Supple. No JVD. No thyromegaly. No submental, submandibular, pre- /postauricular, occipital or supraclavicular lymphadenopathy. CHEST: Normal chest expansion. No Telemetry. LUNGS: Absence of any rales, rhonchi or any wheezing. CARDIOVASCULAR: Regular. S1 and S2 normal. No appreciable rubs, murmurs or gallops. ABDOMEN: Soft, nontender, and nondistended. There is no rebound, voluntary guarding, or rigidity. : Deferred. No Sandhu. EXTREMITIES: Left foot noted to have extremely foul-smelling wound with necrotic toes noted from 2nd two fifth digit, area of erythema and surrounding cellulitic changes noted Vital Signs (last 8hr) Date Time Temp Pulse Resp B/P (MAP) Pulse Ox O2 Delivery O2 Flow Rate FiO2 09/13/24 04:00 97.7 84 18 107/60 99 Room Air 09/13/24 00:00 97.7 83 18 155/54 99 Room Air LABS: Laboratory: Test 09/13/24 05:37 09/13/24 05:31 09/12/24 05:00 09/11/24 22:05 Range/Units Whole Blood Glucose 131 H 70-110 MG/DL White Blood Count 6.3 4.8-10.8 K/uL Red Blood Count 2.25 L 4.50-6.20 MIL/uL Hemoglobin 6.7 *L 14.0-18.0 g/dL Hematocrit 20.3 *L 42-54 % Mean Corpuscular Volume 90.2 79-99 fL Mean Corpuscular Hemoglobin 29.8 27.0-33.0 pg Mean Corpuscular Hemoglobin Concent 33.0 32.0-36.0 g/dL Red Cell Distribution Width 13.2 11.0-15.5 % Platelet Count 118 #L 130-400 K/uL Mean Platelet Volume 9.7 7.5-10.5 fL Nucleated Red Blood Cells 0.0 0.0-0.19 % Sodium Level 135 L 136-145 mmol/L Potassium Level 4.0 3.5-5.1 mmol/L Chloride Level 102 101-111 mmol/L Carbon Dioxide Level 24 21-32 mmol/L Blood Urea Nitrogen 24 H 7-18 mg/dL Creatinine 1.4 H 0.5-1.3 mg/dL Glomerular Filtration Rate Calc 55 >90 mL/min Random Glucose 131 H 70-105 mg/dL Total Calcium 7.8 L 8.5-10.1 mg/dL Magnesium Level 2.00 1.80-2.40 mg/dL Total Bilirubin 0.5 # 0.2-1.0 mg/dL Aspartate Amino Transf (AST/SGOT) 15 10-37 U/L Alanine Aminotransferase (ALT/SGPT) 9 L 12-78 U/L Alkaline Phosphatase 56 50-136 U/L Total Protein 5.4 L 6.0-8.3 g/dL Albumin 1.7 L 3.5-5.0 g/dL Stool Occult Blood POSITIVE H NEGATIVE Current Medications Medications (Trade) Dose Ordered Sig/Nathaly Route PRN Reason Start Time Stop Time Status Last Admin Dose Admin Acetaminophen (TYLenol 325MG TAB) 650 mg Q6H PRN PO MILD PAIN (1-3) 08/30/24 17:30 09/29/24 17:29 Atorvastatin Calcium (LIPItor 20MG) 20 mg HS PO 09/11/24 21:00 10/11/24 20:59 09/12/24 21:17 20 MG Betamethasone Valerate (Betamethasone Valerate) 1 APPLICATION TID TP 09/01/24 14:00 10/01/24 13:59 Cancel Clopidogrel Bisulfate (plaVIX 75MG) 75 mg DAILY PO 09/02/24 09:00 10/02/24 08:59 09/12/24 10:06 75 MG Dextrose (D50w) 50 ml AD PRN IV HYPOGLYCEMIA PROTOCOL 08/30/24 18:00 09/29/24 17:59 Ferrous Sulfate (Ferrous Sulfate) 325 mg DAILY PO 09/11/24 11:00 10/11/24 10:59 09/12/24 10:06 325 MG Glucagon (Glucagon 1mg Kit) 1 mg AD PRN IM HYPOGLYCEMIA PROTOCOL 08/30/24 18:00 09/29/24 17:59 Hydromorphone HCl (DiLAUDid 0.5MG INJ) 0.2 mg Q6H PRN IVP SEVERE PAIN (7-10) 08/30/24 17:30 09/04/24 17:29 DC Insulin Human Regular (humuLIN R 100 UNIT/ML 3ML) INSULIN SLIDING SCAL... ACHS SQ 08/30/24 21:00 09/29/24 20:59 09/07/24 19:56 2 UNIT Iron Sucrose (VenoFER) 200 mg DAILY IV 09/13/24 09:00 09/15/24 09:00 Lactobacillus Rhamnosus ([facility] INRFOOD & Divas Diamond) 1 each BID PO 09/12/24 21:00 10/12/24 20:59 09/12/24 21:17 1 EACH Linezolid 300 ml @ 150 mls/hr Q12H IV 09/10/24 12:30 09/20/24 12:29 09/12/24 23:07 150 MLS/HR Linezolid 300 ml @ 150 mls/hr Q12H IV 08/30/24 18:00 08/30/24 17:37 DC Linezolid 300 ml @ 150 mls/hr Q12H IV 08/30/24 20:00 09/09/24 19:59 DC 09/09/24 08:50 150 MLS/HR Metformin HCl (glucoPHAGE) 1,000 mg BIDMEALS PO 09/07/24 17:00 09/11/24 14:00 DC 09/11/24 09:25 1,000 MG Nystatin (NystOP 15 GM POWDER) 1 APPLICATION TID TP 09/12/24 21:00 10/12/24 20:59 09/12/24 21:17 1 APPL Nystatin (NystOP 15 GM POWDER) 1 APPL BID TP 09/12/24 21:00 09/12/24 16:48 DC Ondansetron HCl (zoFRAN 4MG INJ) 4 mg Q6H PRN IVP NAUSEA/VOMITING 08/30/24 17:30 09/29/24 17:29 Pharmacy Profile Note (Pharmacy Communication) 1 each ONCE MISC 08/30/24 17:30 09/01/24 07:16 DC 08/30/24 17:56 1 EACH Piperacillin Sod/ Tazobactam Sod (Zosyn 3.375gm+NS 50ml) 3.375 gm Q12H IVPB 08/30/24 21:00 08/31/24 06:42 DC 08/30/24 23:06 3.375 GM Piperacillin Sod/ Tazobactam Sod (Zosyn 3.375gm+NS 50ml) 3.375 gm Q8H IVPB 09/10/24 15:00 09/20/24 14:59 09/12/24 23:04 3.375 GM Piperacillin Sod/ Tazobactam Sod (Zosyn 3.375gm+NS 50ml) 3.375 gm Q8H IVPB 08/31/24 07:00 09/09/24 20:59 DC 09/09/24 15:28 3.375 GM Potassium Chloride 100 ml @ 100 mls/hr AD PRN IV POTASSIUM PROTOCOL 09/06/24 08:00 10/06/24 07:59 Potassium Chloride (K-Dur/Klor-Con 20meq) 20 meq AD PRN PO POTASSIUM PROTOCOL 09/06/24 08:00 10/06/24 07:59 09/06/24 15:41 20 MEQ Potassium Chloride (KCl 10% Elixir 20meq/15ml) 20 meq AD PRN PO POTASSIUM PROTOCOL 09/06/24 08:00 10/06/24 07:59 Sodium Chloride 1,000 ml @ 75 mls/hr [id number] IV 08/30/24 20:00 09/01/24 12:55 DC 08/31/24 22:29 75 MLS/HR Thiamine HCl (Vitamin B-1) 100 mg Q24H IVP 08/30/24 18:00 09/01/24 16:47 DC 08/31/24 18:33 100 MG Thiamine HCl (Vitamin B-1) 100 mg Q24H IVP 09/01/24 20:00 10/01/24 19:59 09/12/24 21:17 100 MG Vitamin B Complex/ Vit C/Folic Acid (Nephrovite Tablet) 1 cap DAILY PO 09/01/24 09:00 10/01/24 08:59 09/12/24 10:06 1 CAP DIAGNOSTICS / RADIOLOGY: [ ] ASSESSMENT: Blood loss anemia, hgb at 6.7 Anemia, positive fecal occult blood Gas/wet gangrene of the left foot with extensively necrotic toes and underlying acute osteo-myelitis of multiple toes, POA Sepsis 2/2 complicated soft tissue infection of the left foot with underlying osteomyelitis)/Gram-negative bacteremia, POA Status post transmetatarsal amputation left foot 08/31/2024 Gram-negative bacteremia secondary secondary to Proteus mirabilis POA Urinary tract infection, secondary to E coli and Proteus mirabilis, POA Left foot wound culture positive for Proteus mirabilis Poorly controlled type 2 diabetes mellitus, POA Acute renal failure, POA Acute rhabdomyolysis, POA Anemia, POA Significant leukocytosis secondary to underlying septicemia, POA Moderate hyponatremia, POA Hx of right BKA, POA PLAN PLAN: Treatment: Anemia; positive occult blood-php software engineer consulted, plans for EGD today, unfortunately, his hgb is at 6.7, we will repeat his H/H, if its persistent with low hgb less than 7, patient will need blood transfusion. Type and screen ordered. Surgical: The patient underwent a transmetatarsal amputation of the left foot with partial medial cuneiformectomy and tendon transfer. Medications: Continue IV antibiotics with Zosyn and Zyvox as per Infectious Disease recommendations. The plan is to continue antibiotics for four weeks. A PICC line has been placed and is ready for use. Wound Care: Wound packing with betadine sulcos and complex layered primary wound closure is ongoing. Case Management: Coordination for placement at [facility] is pending insurance approval. The patient has been accepted at a half-way facility in [place]. Cardiology: A cardiology consultation is recommended for further evaluation of circulation. A transcutaneous oximetry (TCOM) and possible angiogram are scheduled for , 09/13/2024. Tests: Final wound culture results show Proteus mirabilis and Staphylococcus aureus. Blood cultures revealed Proteus mirabilis; intraoperative cultures showed Proteus mirabilis and Staphylococcus aureus. Final urine culture showed E. coli and Proteus mirabilis. CT angiogram of bilateral lower extremities indicated atherosclerosis and occlusions. Patient Education: Discussed post-operative care and emphasized the importance of completing the full course of antibiotics. Disposition: The patient will continue to be monitored in the hospital setting due to the complexity of his condition and post-operative status. Further evaluation by the compound machine operator is pending to assess circulation issues. ATTESTATION BY PHYSICIAN I have seen and examined the patient. I reviewed the documentation, medical decision making, and treatment plan as noted by the mid-level provider above. I agree with the findings and plan of care. RICHARDS, PAIGE RAYA MD [facility] Sep 13, 2024 06:53
--- NOTE | 2024-09-13 09:44 | PN ---
[facility] CARDIOLOGY PROGRESS NOTE Cardiology progress note dictated for Romain De Paz MD Date Patient Seen: Sep 13, 2024 Problem List: -Sepsis -Leukocytosis -Bacteremia (Proteus mirabilis) -Gangrene (Proteus mirabilis, Staph aureus) with osteomyelitis affecting multiple digits of the left foot s/p left TMA done on 08/31/2024 -PAD, Miah category 5 symptoms (LLE) -UTI (E coli, Proteus mirabilis) -Acute on chronic renal insufficiency with baseline CKD stage III -Hyponatremia -Normocytic normochromic anemia -Positive fecal occult -Low normal LV systolic function (LVEF: 50-55% by echo done 09/21/2024) -HLP -DM2 -PAD s/p right BKA -Protein malnutrition -Noncompliance Interval History: The patient currently denies chest pain, chest pressure, palpitations, shortness of breath, or lower extremity pain. Hgb 6.7, Hct 20.7, plans for a blood transfusion and EGD The patient will first need to undergo GI evaluation before we can safely proceed with peripheral intervention. TCOM analysis on 09/11/2024: Site 1: left dorsal aspect of foot with Air BL of 33.7 and O2 challenge of 53.5/58.7% Site 3: left medial ankle with Air BL of 62.2 and O2 challenge of 250/302% Site 6: left medial below the knee with Air BL of 45 and O2 challenge of 93.2/107% Physical Examination: GENERAL: No acute distress. HEAD: Normal with no signs of head trauma. EYES: PERRLA, EOMI, conjunctiva and sclera normal. NECK: Supple without JVD. Normal carotid upstrokes without bruits. LUNGS: Clear breath sounds bilaterally. No wheezes, or rhonchi. HEART: Normal rate and rhythm. Normal S1 and S2 without murmurs, gallop or rub. VASC: There is a right BKA that is old and he has a new left TMA with dressing to the left partial foot. There are areas of scattered excoriation to the left lower extremity EXT: No clubbing, cyanosis or edema. NEURO: Awake, alert, and oriented x3. No focal neurological deficits noted. Laboratory: Hematology Labs: Test 09/13/24 07:10 09/13/24 05:31 Range/Units Hemoglobin 6.7 *L 14.0-18.0 g/dL Hematocrit 20.7 *L 42-54 % White Blood Count 6.3 4.8-10.8 K/uL Red Blood Count 2.25 L 4.50-6.20 MIL/uL Mean Corpuscular Volume 90.2 79-99 fL Mean Corpuscular Hemoglobin 29.8 27.0-33.0 pg Mean Corpuscular Hemoglobin Concent 33.0 32.0-36.0 g/dL Red Cell Distribution Width 13.2 11.0-15.5 % Platelet Count 118 #L 130-400 K/uL Mean Platelet Volume 9.7 7.5-10.5 fL Nucleated Red Blood Cells 0.0 0.0-0.19 % Chemistry Labs: Test 09/13/24 05:37 09/13/24 05:31 09/12/24 05:00 Range/Units Whole Blood Glucose 131 H 70-110 MG/DL Sodium Level 135 L 136-145 mmol/L Potassium Level 4.0 3.5-5.1 mmol/L Chloride Level 102 101-111 mmol/L Carbon Dioxide Level 24 21-32 mmol/L Blood Urea Nitrogen 24 H 7-18 mg/dL Creatinine 1.4 H 0.5-1.3 mg/dL Glomerular Filtration Rate Calc 55 >90 mL/min Random Glucose 131 H 70-105 mg/dL Total Calcium 7.8 L 8.5-10.1 mg/dL Magnesium Level 2.00 1.80-2.40 mg/dL Total Bilirubin 0.5 # 0.2-1.0 mg/dL Aspartate Amino Transf (AST/SGOT) 15 10-37 U/L Alanine Aminotransferase (ALT/SGPT) 9 L 12-78 U/L Alkaline Phosphatase 56 50-136 U/L Total Protein 5.4 L 6.0-8.3 g/dL Albumin 1.7 L 3.5-5.0 g/dL Diagnostics / Radiology: Bilateral lower extremity arterial Doppler study 08/30/2024: IMPRESSION: Mild intimal wall thickening in both the lower limb arteries. Both lower limb arteries demonstrate biphasic waveforms in all arteries other than left posterior tibial, anterior tibial, and dorsalis pedis arteries which demonstrate monophasic waveforms. No flow limiting lesions. 2D echocardiogram 09/01/2024: LVEF is 50-55%. Stage I diastolic dysfunction. There is normal LV segmental wall motion. Aortic valve NCC leaflets mild calcified. Trace aortic regurgitation. The mitral valve is mildly thickened. Mild posterior mitral annular calcification present. Assessment: -Sepsis -Leukocytosis -Bacteremia (Proteus mirabilis) -Gangrene (Proteus mirabilis, Staph aureus) with osteomyelitis affecting multiple digits of the left foot s/p left TMA done on 08/31/2024 -PAD, Wythe category 5 symptoms (LLE) -UTI (E coli, Proteus mirabilis) -Acute on chronic renal insufficiency with baseline CKD stage III -Hyponatremia -Normocytic normochromic anemia -Low normal LV systolic function (LVEF: 50-55% by echo done 09/21/2024) -HLP -DM2 -PAD s/p right BKA -Protein malnutrition -Noncompliance Plan: 1. PAD, Wythe category 5 symptoms (LLE) -Of concern, is that the patient's underlying PAD will impact wound healing to the left TMA site. -The patient's worsening anemia with positive fecal occult are concerning for a GI etiology behind the blood loss. As a result, he must first undergo GI evaluation before we can safely proceed with a peripheral angiogram with possible intervention. -In the meantime, he will continue on clopidogrel 75 mg daily (which can be transitioned to aspirin 81 mg daily if clopidogrel must be held for a period of time prior to GI evaluation) and atorvastatin 20 mg QHS. -In addition, he should continue on IV antibiotic therapy and with aggressive wound care. -Hgb 6.7, Hct 20.7 today on 09/13, plans for a blood transfusion and EGD PHILL MELGOZA [facility] Sep 13, 2024 09:44
--- NOTE | 2024-09-13 13:52 | PN ---
NEPHROLOGY PROGRESS NOTE Date/Time Patient Seen: Sep 13, 2024 SUBJECTIVE: This is a 63-year-old male with underlying history of poorly controlled type 2 diabetes mellitus, peripheral arterial disease, prior history of right [id number] amputation in 2020 due to right foot gangrene and necrotizing fasciitis. He presented to emergency room for evaluation of left foot wounds. S/p left TMA by Dr. Lim He continues to be followed by Cardiology, pending recommendations He was noted to have worsening elevated BUN/creatinine We have been consulted for renal failure. Renal function and electrolytes are stable Renal ultrasound showed normal kidneys with no hydronephrosis. He continues on antibiotics as per ID Blood cultures are positive for Proteus mirabilis He continues to be followed by Podiatry, requested the Cardiology Services to evaluate of circulation status. Positive stool occult blood was positive, EGD currently on hold Currently being transfused PRBCs due to hemoglobin is 6.7. He has been started on IV iron He was seen in the medical floor, in no acute distress Prognosis remains guarded REVIEW OF SYSTEMS: GENERAL: Positive for left foot wound. NEUROLOGIC: Negative for any blurry vision, blind spots, double vision, facial asymmetry, dysphagia, dysarthria, hemiparesis, hemisensory deficits, vertigo, ataxia. HEENT: Negative for any head trauma, neck trauma, neck stiffness, photophobia, phonophobia, sinusitis, rhinitis. CARDIAC: Negative for any chest pain, dyspnea on exertion, paroxysmal nocturnal dyspnea, peripheral edema. PULMONARY: Negative for any shortness of breath, wheezing, COPD, or TB exposure. GASTROINTESTINAL: Negative for any abdominal pain, nausea, vomiting, bright red blood per rectum, melena. GENITOURINARY: Negative for any dysuria, hematuria, incontinence. INTEGUMENTARY: Negative for any rashes, cuts, insect bites. RHEUMATOLOGIC: Negative for any joint pains, photosensitive rashes, history of vasculitis or kidney problems. HEMATOLOGIC: Negative for any abnormal bruising, frequent infections or bleeding. Vital Signs (last 8hr) Date Time Temp Pulse Resp B/P (MAP) Pulse Ox O2 Delivery O2 Flow Rate FiO2 09/13/24 11:45 97.3 83 20 126/67 99 Room Air 09/13/24 11:35 97.5 84 18 122/66 99 Room Air 09/13/24 11:30 97.5 84 20 123/66 Room Air 09/13/24 11:25 97.5 83 20 135/66 100 Room Air 09/13/24 08:00 97.5 83 17 121/67 97 Room Air PHYSICAL EXAM: GENERAL: Alert and oriented x 3. No acute distress. Well-nourished. EYES: EOMI. Anicteric. HENT: Moist mucous membranes. No scleral icterus. No cervical lymphadenopathy. LUNGS: Clear to auscultation bilaterally. No accessory muscle use. CARDIOVASCULAR: Regular rate and rhythm. No murmur. No JVD. ABDOMEN: Soft, non-tender and non-distended. No palpable masses. EXTREMITIES: No edema. Non-tender. Right BKA, left TMA SKIN: No rashes or lesions. Warm. NEUROLOGIC: No focal neurological deficits. CN II-XII grossly intact, but not individually tested. PSYCHIATRIC: Cooperative. Appropriate mood and affect. Current Medications Medications (Trade) Dose Ordered Sig/Nathaly Route Start Time Stop Time Status Last Admin Dose Admin Betamethasone Valerate (Betamethasone Valerate) 1 APPLICATION TID TP 09/01/24 14:00 10/01/24 13:59 Cancel Clopidogrel Bisulfate (plaVIX 75MG) 75 mg DAILY PO 09/02/24 09:00 10/02/24 08:59 Insulin Human Regular (humuLIN R 100 UNIT/ML 3ML) INSULIN SLIDING SCAL... ACHS SQ 08/30/24 21:00 09/29/24 20:59 09/01/24 16:50 3 UNIT Linezolid 300 ml @ 150 mls/hr Q12H IV 08/30/24 18:00 08/30/24 17:37 DC Linezolid 300 ml @ 150 mls/hr Q12H IV 08/30/24 20:00 09/09/24 19:59 09/02/24 09:34 150 MLS/HR Pharmacy Profile Note (Pharmacy Communication) 1 each ONCE MISC 08/30/24 17:30 09/01/24 07:16 DC 08/30/24 17:56 1 EACH Piperacillin Sod/ Tazobactam Sod (Zosyn 3.375gm+NS 50ml) 3.375 gm Q12H IVPB 08/30/24 21:00 08/31/24 06:42 DC 08/30/24 23:06 3.375 GM Piperacillin Sod/ Tazobactam Sod (Zosyn 3.375gm+NS 50ml) 3.375 gm Q8H IVPB 08/31/24 07:00 09/09/24 20:59 09/02/24 05:21 3.375 GM Sodium Chloride 1,000 ml @ 75 mls/hr [id number] IV 08/30/24 20:00 09/01/24 12:55 DC 08/31/24 22:29 75 MLS/HR Thiamine HCl (Vitamin B-1) 100 mg Q24H IVP 08/30/24 18:00 09/01/24 16:47 DC 08/31/24 18:33 100 MG Thiamine HCl (Vitamin B-1) 100 mg Q24H IVP 09/01/24 20:00 10/01/24 19:59 09/01/24 19:55 100 MG Vitamin B Complex/ Vit C/Folic Acid (Nephrovite Tablet) 1 cap DAILY PO 09/01/24 09:00 10/01/24 08:59 09/02/24 09:34 1 CAP LABORATORY: [ ] Hematology Labs: Test 09/13/24 07:10 09/13/24 05:31 Range/Units Hemoglobin 6.7 *L 14.0-18.0 g/dL Hematocrit 20.7 *L 42-54 % White Blood Count 6.3 4.8-10.8 K/uL Red Blood Count 2.25 L 4.50-6.20 MIL/uL Mean Corpuscular Volume 90.2 79-99 fL Mean Corpuscular Hemoglobin 29.8 27.0-33.0 pg Mean Corpuscular Hemoglobin Concent 33.0 32.0-36.0 g/dL Red Cell Distribution Width 13.2 11.0-15.5 % Platelet Count 118 #L 130-400 K/uL Mean Platelet Volume 9.7 7.5-10.5 fL Nucleated Red Blood Cells 0.0 0.0-0.19 % Chemistry Labs: Test 09/13/24 05:37 09/13/24 05:31 09/12/24 05:00 Range/Units Whole Blood Glucose 131 H 70-110 MG/DL Sodium Level 135 L 136-145 mmol/L Potassium Level 4.0 3.5-5.1 mmol/L Chloride Level 102 101-111 mmol/L Carbon Dioxide Level 24 21-32 mmol/L Blood Urea Nitrogen 24 H 7-18 mg/dL Creatinine 1.4 H 0.5-1.3 mg/dL Glomerular Filtration Rate Calc 55 >90 mL/min Random Glucose 131 H 70-105 mg/dL Total Calcium 7.8 L 8.5-10.1 mg/dL Magnesium Level 2.00 1.80-2.40 mg/dL Total Bilirubin 0.5 # 0.2-1.0 mg/dL Aspartate Amino Transf (AST/SGOT) 15 10-37 U/L Alanine Aminotransferase (ALT/SGPT) 9 L 12-78 U/L Alkaline Phosphatase 56 50-136 U/L Total Protein 5.4 L 6.0-8.3 g/dL Albumin 1.7 L 3.5-5.0 g/dL DIAGNOSTICS / RADIOLOGY: PATIENT: CHADD MAGDALENO MR#: [id number] : 1960 SEX: M AGE: 64 LOCATION: [facility] ORDER 48 STATUS: ADM IN REPORT#: [id number] SERVICE 47 REASON: CONFIRM PICC LINE PLACEMENT ORDERING PHYSICIAN: BRAULIO BRIDGES MD PROCEDURE: CXR1VW - CHEST 1VW EXAM: CR Chest, 1 view CLINICAL HISTORY: Line placement. COMPARISON: CT chest dated 09/02/2024. FINDINGS: The right PICC line tip overlies the superior cavoatrial junction. The lungs show no infiltrates or other acute findings. No pleural effusion or pneumothorax. The cardiomediastinal silhouette is within normal limits. No acute osseous abnormality. IMPRESSION: The right PICC line tip overlies the superior cavoatrial junction. No acute cardiopulmonary process is evident. No adverse interval changes. /[place] DICTATED BY: GISEL CHACON Jr., MD DATE: 09/05/2424 ELECTRONICALLY SIGNED BY: GISEL CHACON Jr., MD DATE: 09/05/2424 PATIENT: CHADD MAGDALENO MR#: [id number] : 1960 SEX: M AGE: 64 LOCATION: [facility] ORDER 1020 STATUS: ADM IN REPORT#: [id number] SERVICE 1018 REASON: PAD; with LEFT lower extremity runoff ORDERING PHYSICIAN: KANIKA CROFT PROCEDURE: CTA ABDAOR - CT ANGIO ABD AORTA W RUNOFF EXAM: CTA bilateral Lower Extremities with Intravenous Contrast. CLINICAL HISTORY: Amputation of the right lower limb. TECHNIQUE: Axial CTA images of the bilateral Lower Extremities performed with intravenous contrast in the arterial phase with coronal and sagittal reformatted images generated and reviewed. 3-D reformatted images generated on an independent workstation and also reviewed. CONTRAST: Yes. COMPARISON: None provided. FINDINGS: Aorta: Atherosclerosis in the aorta with multiple calcified and non-calcified plaques at the origin of coeiliac axis, superior mesenteric artery and in the aortic neves without any flow limiting stenosis. VASCULATURE: Common Femoral Artery: Mild circumferential wall thickening with small calcified and non-calcified plaques on both sides without any flow limiting stenosis. Superficial Femoral Artery: Circumferential wall thickening with calcified plaques causing focal areas of luminal narrowing by approximately 20-30% on both sides. There is a focal area of luminal narrowing by approximately 60-70% in the lower one-thirds of the right superficial femoral artery. Deep Femoral Artery: No acute finding. No occlusion, rupture, aneurysm or dissection. Popliteal and Calf Arteries: There is circumferential calcifications in the bilateral popliteal and anterior and posterior tibial arteries with complete occlusion of the right popliteal artery and the right anterior and posterior tibial arteries. The left popliteal artery shows no significant luminal compromise. There is attenuated contrast opacification in the upper and mid segments of left anterior tibial artery with occlusion distally. Soft tissues: Unremarkable. Bones: Status post right below the knee amputation. No acute osseous abnormality. IMPRESSION: 1. Atherosclerosis in the aorta and in arteries of bilateral lower limb with complete occlusion of the right popliteal and proximal right anterior and posterior tibial arteries. Status post right below the knee amputation. 2. High-grade stenosis in the proximal and mid left anterior tibial artery with occlusion distally. 3. No abdominal aortic aneurysm or dissection. /[place] DICTATED BY: PATRICIA LAWSON MD DATE: 09/04/24647 ELECTRONICALLY SIGNED BY: PATRICIA LAWSON MD DATE: 09/04/24647 PATIENT: CHADD MAGDALENO MR#: [id number] : 1960 SEX: M AGE: 64 LOCATION: [facility] ORDER 1245 STATUS: ADM IN REPORT#: [id number] SERVICE 1227 REASON: cad,chf ORDERING PHYSICIAN: CHARIS OROSCO MD PROCEDURE: ECHO CMP - ECHO 2-D COMPLETE APPROVED REPORT EXAM: Two-dimensional and M-mode echocardiogram with Doppler and color Doppler. Study Details: Diabts M , PVD INDICATION ICD: CAD , chf 2D Dimensions RVDd 3.4 cm LVEF(%) 70.2 (>50%) LVED Vol(simp.) 86.7 mL IVSd 0.9 (0.7-1.1cm) FS(%) 40 % LVES Vol(simp.) 38.5 mL LVDd 4.6 (3.8-5.6cm) LA (2D) 2.8 (1.6-4.0cm) LVEF(%, simp.) 56 % PWd 0.8 (0.7-1.1cm) Ao Root(2D) 3.3 (2.0-3.7cm) LA ESV INDEX (4CH) 21.00 mL/m2 IVSs 1.1 cm LVOT diam 2.0 (1.8-2.4cm) LA ESV INDEX (2CH) 15.31 mL/m2 LVDs 2.8 (2.5-4.0cm) LA ESV INDEX (BP) 15.38 mL/m2 PWs 1.2 cm Deformation Strain Apical 4 16.8 % Apical 2 13.2 % Apical 3 15.0 % Global Strain 15.0 % M-Mode Dimensions EPSS 1.8 cm LA (MM) 3.4 (1.6-4.0cm) Ao Root(MM) 3.4 (2.0-3.7cm) Aortic Valve AoV Vmax 0.9 m/s Ao Peak GR 3.2 mmHg LVOT Vmax 0.8 m/s AoV VTI 0.2 m Ao Mean GR 1.7 mmHg LVOT VTI 0.15 m CAITLIN (VMAX) 3.04 cm2 CAITLIN (VTI) 3.1 cm2 Mitral Valve MV E Vmax 61.6 cm/s DECEL Time 244 ms MV A Vmax 95.3 cm/s E/A ratio 0.6 TDI E/E' Medial 10.5 E/E' Lateral 6.4 Medial E' Peak V 5.86 cm/s Lateral E' Peak V 9.56 cm/s Pulmonary Valve PV Vmax 0.9 m/s PV VTI 0.18 m PV Mean GR 2.0 mmHg PV Peak GR 3.5 mmHg Left Ventricle The left ventricle is normal size. There is normal LV segmental wall motion. There is normal left ventricular wall thickness. LVEF is 50-55%. Stage I diastolic dysfunction. Right Ventricle The right ventricle is normal size. The right ventricular systolic function is normal. Atria The left atrium size is normal. The interatrial septum is intact with no evidence for an atrial septal defect. The right atrium size is normal. Aortic Valve Aortic valve NCC leaflets mild calcified. Trace aortic regurgitation. There is no aortic valvular stenosis. Mitral Valve The mitral valve is mildly thickened. Mild posterior mitral annular calcification present. There is no evidence of significant mitral regurgitation. There is no mitral valve stenosis. Tricuspid Valve The tricuspid valve is normal in structure. There is no tricuspid valve regurgitation noted. Pulmonic Valve Pulmonic valve is not well visualized. There is trace pulmonic valvular regurgitation. Great Vessels The aortic root is normal in size. The ascending aorta is normal in size. IVC is not well visualized. Pericardium not visualized Conclusion LVEF is 50-55%. Stage I diastolic dysfunction. There is normal LV segmental wall motion. Aortic valve NCC leaflets mild calcified. Trace aortic regurgitation. The mitral valve is mildly thickened. Mild posterior mitral annular calcification present. DICTATED BY: CHARIS OROSCO MD DATE: 09/01/24 1114 ELECTRONICALLY SIGNED BY: CHARIS OROSCO MD DATE: 09/01/24 4887 PATIENT: CHADD MAGDALENO MR#: [id number] : 1960 SEX: M AGE: 63 LOCATION: [facility] ORDER 1738 STATUS: ADM IN REPORT#: [id number] SERVICE 1735 REASON: rule out any significant lung infiltrates, sepsis, foot infection ORDERING PHYSICIAN: BRAULIO BRIDGES MD PROCEDURE: CXR1VW - CHEST 1VW EXAM: CR Chest, 1 View. CLINICAL HISTORY: rule out any significant lung infiltrates, sepsis, foot infection COMPARISON: 05/02/2017 FINDINGS: LUNGS: There is no mass, infiltrate, or acute pulmonary abnormality. PLEURAL SPACES: No pleural effusion or pneumothorax. MEDIASTINUM: Cardiac size and mediastinal contours within normal limits. BONES: No aggressive appearing osseous lesion seen. IMPRESSION: No acute cardiopulmonary pathology is evident. /[place] DICTATED BY: PATRICIA LAWSON MD DATE: 08/30/242003 REASON: acute renal failure, uncontrolled DM II ORDERING PHYSICIAN: BRAULIO BRIDGES MD PROCEDURE: RENAL - US RENAL SONOGRAM EXAMINATION: Renal ultrasound. COMPARISON: None provided. HISTORY: acute renal failure, uncontrolled DM II FINDINGS: The right kidney measures 9.9 cm and is normal in echotexture. The left kidney measures 9.2 cm and is normal in echotexture. There are no focal renal lesions. There are no renal stones. There is no hydronephrosis. There is mild debris noted in the urinary bladder. Cystitis should be excluded. IMPRESSION: Normal kidneys. No hydronephrosis Mild debris noted in the urinary bladder. Cystitis should be excluded. /[place] DICTATED BY: PATRICIA LAWSON MD DATE: 08/30/242022 PATIENT: CHADD MAGDALENO MR#: [id number] : 1960 SEX: M AGE: 63 LOCATION: [facility] ORDER 1724 STATUS: ADM IN REPORT#: [id number] SERVICE 1717 REASON: non healing left foot wound with necrotic toes, assess for severe PAD ORDERING PHYSICIAN: BRAULIO BRIDGES MD PROCEDURE: ART B LE - US ARTERIAL BILAT LOW EXT DUPL EXAMINATION: DUPLEX ULTRASOUND EXAMINATION OF THE BILATERAL LOWER EXTREMITY ARTERIES. CLINICAL HISTORY: Non-healing wound in the left, to assess for peripheral arterial disease. COMPARISON: Lower extremity arterial doppler dated 12/29/2020. FINDINGS: Peak systolic velocities within the right lower arteries are as follows: Common femoral artery: 56 cm/s. Superficial femoral artery: 55 cm/s at proximal, 71 cm/s at mid, and 50 cm/s at distal segments. Popliteal artery: 28 cm/s at proximal and 37 cm/s at distal segments. The right lower limb arteries demonstrate biphasic waveforms in all arteries. The below knee arteries are not assessed, post amputation status. Peak systolic velocities within the left lower arteries are as follows: Common femoral artery: 66 cm/s. Superficial femoral artery: 71 cm/s at proximal, 72 cm/s at mid, and 72 cm/s at distal segments. Popliteal artery: 56 cm/s at proximal and 55 cm/s at distal segments. Posterior tibial artery: 30 cm/s. Anterior tibial artery: 47 cm/s. Dorsalis pedis artery: 67 cm/s. The left lower limb arteries demonstrate biphasic waveforms in all arteries other than posterior tibial, anterior tibial, and dorsalis pedis arteries which demonstrate monophasic waveforms. There is intimal wall thickening in both lower limb arteries. IMPRESSION: Mild intimal wall thickening in both the lower limb arteries. Both lower limb arteries demonstrate biphasic waveforms in all arteries other than left posterior tibial, anterior tibial, and dorsalis pedis arteries which demonstrate monophasic waveforms. No flow limiting lesions. /[place] DICTATED BY: PATRICIA LAWSON MD DATE: 08/30/242034 PATIENT: CHADD MAGDALENO MR#: [id number] : 1960 SEX: M AGE: 63 LOCATION: [facility] ORDER 1501 STATUS: ADM IN REPORT#: [id number] SERVICE 1500 REASON: SEPSIS ORDERING PHYSICIAN: IVON UNDERWOOD MD PROCEDURE: FT 3VW LT - FOOT COMP 3+VWS LT EXAM: CR Left foot, 3 View. CLINICAL HISTORY: SEPSIS COMPARISON: Comparison: Radiograph dated September 21, 2016 Findings: AP, oblique, lateral views of the left foot are submitted. Interval amputation of the great toe from the distal metatarsal. There is edema and subcutaneous emphysema within the soft tissues overlying the first metatarsal. Presumed interval amputation of the second toe from the mid to distal second proximal phalanx and of the third toe from the distal interphalangeal joint. Clinical correlation is advised. There is suggestion of bone loss and cortical irregularities seen within the mid diaphyses of the 3rd and 4th proximal phalanxes. Findings may reflect osteomyelitis. Recommend contrast-enhanced MRI of the midfoot/forefoot for further evaluation. IMPRESSION: 1. Status post interval amputation of great toe, second toe, and third toe with soft tissue edema and subcutaneous emphysema overlying the first metatarsal. 2. Possible osteomyelitis of 3rd and 4th proximal phalanxes. Recommend MRI of the midfoot/forefoot for further evaluation. /[place] DICTATED BY: GISEL CHACON Jr., MD DATE: 08/30/24 5664 ASSESSMENT: Acute renal failure Acute rhabdomyolysis Anemia Hyponatremia Sepsis UTI Blood culture positive for Gram-negative rods Gas/wet gangrene of the left foot with extensively necrotic toes and underlying acute osteo-myelitis of multiple toe Poorly controlled type 2 diabetes mellitus Significant leukocytosis secondary to underlying septicemia PLAN: Labs, diagnostic, radiologic exams reviewed and interpreted by myself and supervising physician. We have reviewed external records in detail Pending further GI work-up/ clearance for angiogram Start Epogen 67810 units subQ weekly Continue with IV iron 1.5 Fluid restriction is advised Require close monitoring of renal function and electrolytes Order CBC, CMP, and electrolytes in am Continue with antibiotics as per ID BiPAP as necessary, for respiratory distress Monitor blood pressure adjust medication doses as needed Avoid hypotensive episodes May use Dilaudid 0.5 mg IV every 6 hours as needed for severe pain Monitor blood sugars Strict intake, output, and daily weight should be monitored Please renally adjust medications Avoid nephrotoxic and nonsteroidal drugs Avoid contrast if possible Will continue to monitor renal function, anemia, electrolytes Treatment plan discussed with patient Questions were answered We have discussed with the other team physicians in detail about the care plan We will continue to monitor the patient closely ATTESTATION BY PHYSICIAN I have seen and examined the patient. I reviewed the documentation, medical decision making, and treatment plan as noted by the mid-level provider above. I agree with the findings and plan of care. EMMIE KRAMER MD, [facility] Sep 13, 2024 13:52
[2024-09-13] MEDS ORDERED: EPOETIN ALFA-EPBX (NON-ESRD) 10,000 UNIT/ML VIAL SQ SCH (15:00)
--- NOTE | 2024-09-13 16:56 | PN ---
GASTROENTEROLOGY PROGRESS NOTE Date of Visit: Sep 13, 2024 Time of Visit: 16:55 Events / Notes: this is a 64-year-old male with past medical history of type 2 diabetes, PAD, right below the knee amputation in 2020 who presented due to right foot gangrene and necrotizing fasciitis. We were consulted due to anemia and positive FOBT. No history of EGD or colonoscopy. Review of Systems: CONSTITUTIONAL: No malaise or change in sensation of wellbeing. ENMT: No rhinorrhea, otorrhea, sinus pain, ear ache. CARDIOVASCULAR: No angina, palpitations, orthopnea or paroxysmal dyspnea. RESPIRATORY: No SOB. GASTROINTESTINAL: No abdominal pain, nausea, vomiting, diarrhea, hematemesis, melena or change in the patient's habitual bowel movements consistency/number. GENITOURINARY: No dysuria, hematuria or change in bladder continence. MUSCULOSKELETAL: No new muscle pain or decrease in muscular strength. No new joint swelling, redness or tenderness. SKIN: No new rash. Physical Exam: GEN: Awake, alert, oriented in person, time and place, and in no acute distress. HEENT: No sinus tenderness. Tympanic membranes were not examined. No rhinorrhea. Oral pharyngeal mucosa is pink, moist and within normal limits. Neck is supple with no cervical lymphadenopathy, thyromegaly or JVD. CHEST: Inspection, palpation and percussion of the chest were unremarkable. Lung auscultation revealed normal breath sounds bilaterally. CARDIAC: PMI is within normal limits. Heart sounds are regular. Normal S1, S2. No gallop or murmur. ABD: Soft, non-tender and not distended. No peritoneal signs on palpation. No organomegaly. Normal bowel sounds. EXT: No cyanosis or clubbing. No edema. SKIN: Intact. No rashes. JOINTS: No evidence of synovitis or acute arthritis. NEURO: Alert and oriented to name, place and person. Cranial nerve examination is unremarkable. No focal motor deficits. Normal speech. Gait is normal. Strength is normal. Vital Signs (last 8hr) Date Time Temp Pulse Resp B/P (MAP) Pulse Ox O2 Delivery O2 Flow Rate FiO2 09/13/24 16:00 97.5 85 16 136/67 99 Room Air 09/13/24 11:45 97.3 83 20 126/67 99 Room Air 09/13/24 11:35 97.5 84 18 122/66 99 Room Air 09/13/24 11:30 97.5 84 20 123/66 Room Air 09/13/24 11:25 97.5 83 20 135/66 100 Room Air Laboratory: [ ] Laboratory: Test 09/13/24 15:37 09/13/24 07:10 09/13/24 05:31 09/12/24 05:00 Range/Units Whole Blood Glucose 154 H 70-110 MG/DL Hemoglobin 6.7 *L 14.0-18.0 g/dL Hematocrit 20.7 *L 42-54 % White Blood Count 6.3 4.8-10.8 K/uL Red Blood Count 2.25 L 4.50-6.20 MIL/uL Mean Corpuscular Volume 90.2 79-99 fL Mean Corpuscular Hemoglobin 29.8 27.0-33.0 pg Mean Corpuscular Hemoglobin Concent 33.0 32.0-36.0 g/dL Red Cell Distribution Width 13.2 11.0-15.5 % Platelet Count 118 #L 130-400 K/uL Mean Platelet Volume 9.7 7.5-10.5 fL Nucleated Red Blood Cells 0.0 0.0-0.19 % Sodium Level 135 L 136-145 mmol/L Potassium Level 4.0 3.5-5.1 mmol/L Chloride Level 102 101-111 mmol/L Carbon Dioxide Level 24 21-32 mmol/L Blood Urea Nitrogen 24 H 7-18 mg/dL Creatinine 1.4 H 0.5-1.3 mg/dL Glomerular Filtration Rate Calc 55 >90 mL/min Random Glucose 131 H 70-105 mg/dL Total Calcium 7.8 L 8.5-10.1 mg/dL Magnesium Level 2.00 1.80-2.40 mg/dL Total Bilirubin 0.5 # 0.2-1.0 mg/dL Aspartate Amino Transf (AST/SGOT) 15 10-37 U/L Alanine Aminotransferase (ALT/SGPT) 9 L 12-78 U/L Alkaline Phosphatase 56 50-136 U/L Total Protein 5.4 L 6.0-8.3 g/dL Albumin 1.7 L 3.5-5.0 g/dL Test 09/11/24 22:05 Range/Units Stool Occult Blood POSITIVE H NEGATIVE Current Medications Medications (Trade) Dose Ordered Sig/Nathaly Route PRN Reason Start Time Stop Time Status Last Admin Dose Admin Acetaminophen (TYLenol 325MG TAB) 650 mg Q6H PRN PO MILD PAIN (1-3) 08/30/24 17:30 09/29/24 17:29 Atorvastatin Calcium (LIPItor 20MG) 20 mg HS PO 09/11/24 21:00 10/11/24 20:59 09/12/24 21:17 20 MG Betamethasone Valerate (Betamethasone Valerate) 1 APPLICATION TID TP 09/01/24 14:00 10/01/24 13:59 Cancel Clopidogrel Bisulfate (plaVIX 75MG) 75 mg DAILY PO 09/02/24 09:00 10/02/24 08:59 09/12/24 10:06 75 MG Dextrose (D50w) 50 ml AD PRN IV HYPOGLYCEMIA PROTOCOL 08/30/24 18:00 09/29/24 17:59 Epoetin Aram-epbx (Retacrit) 10,000 unit QTH SQ 09/13/24 15:00 10/13/24 14:59 Ferrous Sulfate (Ferrous Sulfate) 325 mg DAILY PO 09/11/24 11:00 10/11/24 10:59 09/12/24 10:06 325 MG Glucagon (Glucagon 1mg Kit) 1 mg AD PRN IM HYPOGLYCEMIA PROTOCOL 08/30/24 18:00 09/29/24 17:59 Hydromorphone HCl (DiLAUDid 0.5MG INJ) 0.2 mg Q6H PRN IVP SEVERE PAIN (7-10) 08/30/24 17:30 09/04/24 17:29 DC Insulin Human Regular (humuLIN R 100 UNIT/ML 3ML) INSULIN SLIDING SCAL... ACHS SQ 08/30/24 21:00 09/29/24 20:59 09/07/24 19:56 2 UNIT Iron Sucrose (VenoFER) 200 mg DAILY IV 09/13/24 09:00 09/15/24 09:00 09/13/24 12:15 200 MG Lactobacillus Rhamnosus ([facility]) 1 each BID PO 09/12/24 21:00 10/12/24 20:59 09/12/24 21:17 1 EACH Linezolid 300 ml @ 150 mls/hr Q12H IV 09/10/24 12:30 09/20/24 12:29 09/13/24 12:25 150 MLS/HR Linezolid 300 ml @ 150 mls/hr Q12H IV 08/30/24 18:00 08/30/24 17:37 DC Linezolid 300 ml @ 150 mls/hr Q12H IV 08/30/24 20:00 09/09/24 19:59 DC 09/09/24 08:50 150 MLS/HR Metformin HCl (glucoPHAGE) 1,000 mg BIDMEALS PO 09/07/24 17:00 09/11/24 14:00 DC 09/11/24 09:25 1,000 MG Nystatin (NystOP 15 GM POWDER) 1 APPLICATION TID TP 09/12/24 21:00 10/12/24 20:59 09/13/24 12:15 1 APPL Nystatin (NystOP 15 GM POWDER) 1 APPL BID TP 09/12/24 21:00 09/12/24 16:48 DC Ondansetron HCl (zoFRAN 4MG INJ) 4 mg Q6H PRN IVP NAUSEA/VOMITING 08/30/24 17:30 09/29/24 17:29 Pharmacy Profile Note (Pharmacy Communication) 1 each ONCE MISC 08/30/24 17:30 09/01/24 07:16 DC 08/30/24 17:56 1 EACH Piperacillin Sod/ Tazobactam Sod (Zosyn 3.375gm+NS 50ml) 3.375 gm Q12H IVPB 08/30/24 21:00 08/31/24 06:42 DC 08/30/24 23:06 3.375 GM Piperacillin Sod/ Tazobactam Sod (Zosyn 3.375gm+NS 50ml) 3.375 gm Q8H IVPB 09/10/24 15:00 09/20/24 14:59 09/13/24 05:30 3.375 GM Piperacillin Sod/ Tazobactam Sod (Zosyn 3.375gm+NS 50ml) 3.375 gm Q8H IVPB 08/31/24 07:00 09/09/24 20:59 DC 09/09/24 15:28 3.375 GM Potassium Chloride 100 ml @ 100 mls/hr AD PRN IV POTASSIUM PROTOCOL 09/06/24 08:00 10/06/24 07:59 Potassium Chloride (K-Dur/Klor-Con 20meq) 20 meq AD PRN PO POTASSIUM PROTOCOL 09/06/24 08:00 10/06/24 07:59 09/06/24 15:41 20 MEQ Potassium Chloride (KCl 10% Elixir 20meq/15ml) 20 meq AD PRN PO POTASSIUM PROTOCOL 09/06/24 08:00 10/06/24 07:59 Sodium Chloride 1,000 ml @ 75 mls/hr [id number] IV 08/30/24 20:00 09/01/24 12:55 DC 08/31/24 22:29 75 MLS/HR Thiamine HCl (Vitamin B-1) 100 mg Q24H IVP 08/30/24 18:00 09/01/24 16:47 DC 08/31/24 18:33 100 MG Thiamine HCl (Vitamin B-1) 100 mg Q24H IVP 09/01/24 20:00 10/01/24 19:59 09/12/24 21:17 100 MG Vitamin B Complex/ Vit C/Folic Acid (Nephrovite Tablet) 1 cap DAILY PO 09/01/24 09:00 10/01/24 08:59 09/12/24 10:06 1 CAP Diagnostics / Radiology: [COPY/PASTE HERE IF NO REPORTS PLEASE DELETE SECTION] Assessment: Positive FOBT Acute blood loss anemia DM PAD Plan: EGD in [place] [facility] Sep 13, 2024 16:56
--- NOTE | 2024-09-13 17:15 | NUR ---
Nutrition consult per LOS >7 Reviewed labs, notes, and medications. Pt with right BKA, pending d/c, GI following, left TMA 08/31/24, FLD, Fe, IV fluid, nephrovite, probiotics, Na 135(L), elevated BUN 24, elevated Cr 1.4, BG 131 (H), Ca 7.8(L), elevated CRP per chart review. 25% PO intake, wt via bed scale, inconsistent wts since admin, last BM 09/12/24, right BKA, no edema, well nourished, PICC line, 1400 ml balance 09/12/24 per nursing. Mild muscle loss may be due to sarcopenia. Advance diet when medically feasible to 60 gm cho + HH diet + prostat jello tid w/ trays. recent poor PO intake per chart review Recommendations: -Provide FLD + prostat jello tid w/ trays -Monitor PO intake -Encourage PO intake as able -If poor PO intake continues consider appetite stimulant -Monitor BM -If no BM >3 days consider stool softener -Monitor electrolytes -Replenish electrolytes per protocol -Monitor wts -Reweigh as able -Order Vit D, vit b-12 labs to rule out deficiencies -Provide b-complex + MVI QD to aid in wound healing -Texture per [employer] recs -Recommend Pt to follow up with PCP -Monitor goals of care RD to follow + available for consult per protocol Addendum: 09/13/24 at [address] Amended: Links added.
--- NOTE | 2024-09-13 17:24 | PN ---
INFECTIOUS DISEASE PROGRESS NOTE Date of Service: Sep 13, 2024 SUBJECTIVE: Patient is awake, alert and oriented x3. Hemoglobin dropped to 6.7 today and patient will be transfused 1 unit of PRBC and per report scheduled for an EGD. The Peripheral angiogram has been postponed until further notice. No fever reported, temperature is 97.5. Renal function is improving, BUN is 24 and creatinine of 1.4. Patient to continue on Zosyn and linezolid IV. PHYSICAL EXAM EYES: Anicteric. Pupils equal and reactive. HENT: No oral thrush seen, moist Oral mucosa. NECK: Supple, no JVD or thyromegaly. LUNGS: Good air entry. No rales, no rhonchi. CARDIOVASCULAR: S1, S2 regular. No murmur heard. ABDOMEN: Soft, non tender, bowel sounds present, no organomegaly. CENTRAL NERVOUS SYSTEM: Awake, alert, oriented x 3. SKIN: No rashes, no swelling. LYMPHATICS: No peripheral lymphadenopathy MUSCULOSKELETAL: No joint swelling, erythema or tenderness. EXTREMITIES: Dry dressing to left lower extremity. Left TMA. History of right BKA BACK: No deformity, no pressure ulcer. GENITOURINARY: No dysuria or hematuria. Vital Sign (Last 12 Hours) 09/13/24 09/13/24 09/13/24 09/13/24 08:00 11:25 11:30 11:35 Temp 97.5 97.5 97.5 97.5 Pulse 83 83 84 84 Resp 17 20 20 18 B/P (MAP) 121/67 135/66 123/66 122/66 Pulse Ox 97 100 99 O2 Delivery Room Air Room Air Room Air Room Air 09/13/24 09/13/24 11:45 16:00 Temp 97.3 97.5 Pulse 83 85 Resp 20 16 B/P (MAP) 126/67 136/67 Pulse Ox 99 99 O2 Delivery Room Air Room Air Intake & Output (last 24hrs) 0 09/12/24 09/12/24 09/13/24 15:00 23:00 07:00 Intake Total 450 ml 150 ml Output Total 400 ml Balance 450 ml 150 ml -400 ml LABS: Laboratory: Test 09/13/24 15:37 09/13/24 07:10 09/13/24 05:31 09/12/24 05:00 Range/Units Whole Blood Glucose 154 H 70-110 MG/DL Hemoglobin 6.7 *L 14.0-18.0 g/dL Hematocrit 20.7 *L 42-54 % White Blood Count 6.3 4.8-10.8 K/uL Red Blood Count 2.25 L 4.50-6.20 MIL/uL Mean Corpuscular Volume 90.2 79-99 fL Mean Corpuscular Hemoglobin 29.8 27.0-33.0 pg Mean Corpuscular Hemoglobin Concent 33.0 32.0-36.0 g/dL Red Cell Distribution Width 13.2 11.0-15.5 % Platelet Count 118 #L 130-400 K/uL Mean Platelet Volume 9.7 7.5-10.5 fL Nucleated Red Blood Cells 0.0 0.0-0.19 % Sodium Level 135 L 136-145 mmol/L Potassium Level 4.0 3.5-5.1 mmol/L Chloride Level 102 101-111 mmol/L Carbon Dioxide Level 24 21-32 mmol/L Blood Urea Nitrogen 24 H 7-18 mg/dL Creatinine 1.4 H 0.5-1.3 mg/dL Glomerular Filtration Rate Calc 55 >90 mL/min Random Glucose 131 H 70-105 mg/dL Total Calcium 7.8 L 8.5-10.1 mg/dL Magnesium Level 2.00 1.80-2.40 mg/dL Total Bilirubin 0.5 # 0.2-1.0 mg/dL Aspartate Amino Transf (AST/SGOT) 15 10-37 U/L Alanine Aminotransferase (ALT/SGPT) 9 L 12-78 U/L Alkaline Phosphatase 56 50-136 U/L Total Protein 5.4 L 6.0-8.3 g/dL Albumin 1.7 L 3.5-5.0 g/dL Test 09/11/24 22:05 Range/Units Stool Occult Blood POSITIVE H NEGATIVE ASSESSMENT: Left foot diabetic ulcer with polymicrobial infection, possible osteomyelitis, status post transmetatarsal amputation on 08/31/2024. Proteus mirabilis bacteremia. Urinary tract infection with ESBL, E coli and Proteus mirabilis. Leukocytosis, resolved. Peripheral Artery disease. Diabetes mellitus Chronic kidney disease. Anemia, requiring blood transfusion. PLAN: Continue linezolid IV. Continue Zosyn. Continue pain management. Continue antidiabetics. Continue wound care. Will need 4 weeks of IV antibiotics and Case management working on SNF placement. Peripheral angiogram was postponed until further notice. Patient will be transfused 1 unit of PRBC and pending an EGD. This case was reviewed and discussed with my supervising physician and the above assessment and plan was formulated and agreed upon. ATTESTATION BY PHYSICIAN I have seen and examined the patient. I reviewed the documentation, medical dec ision making, and treatment plan as noted by the mid-level provider above. I agree with the findings and plan of care. SUSANNE BETTENCOURT MD, [facility] Sep 13, 2024 17:24
[2024-09-13] MEDS: EPOETIN ALFA-EPBX (NON-ESRD) 10,000 UNIT/ML VIAL SQ SCH (20:43)
[2024-09-14] VITALS (21 sets, daily range): BP systolic 96–128; BP diastolic 58–81; PULSE 71–100; RESP 16–21; TEMP 97.4–98.2; O2SAT 86–100
[2024-09-14 05:15] LABS: NUCLEATED RED BLOOD CELLS 0.0 % (0.0-0.19); PLATELET COUNT (AUTO) 95.0 K/uL (130-400); RED BLOOD CELL COUNT(AUTO) 2.68 MIL/uL (4.50-6.20); RED CELL DISTRIBUTION WIDTH 14.7 % (11.0-15.5); WHITE BLOOD COUNT (AUTO) 6.1 K/uL (4.8-10.8)
[2024-09-14 05:30] LABS: CREATININE 1.1 mg/dL (0.5-1.3); GLOMERULAR FILTR. RATE CALC 74.0 mL/min (>90); GLUCOSE,RANDOM 144.0 mg/dL (70-105); SODIUM SERUM 136.0 mmol/L (136-145); UREA NITROGEN, BLOOD 21.0 mg/dL (7-18)
--- NOTE | 2024-09-14 05:58 | PN ---
SUBJECTIVE: The patient is a very pleasant 64-year-old diabetic [place] male being followed for anemia. He is pending evaluation by the GI service. There is a plan today for an EGD. The patient is being followed by the Cardiology Service. 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 Cardiology is following the patient. They feel the patient will need to undergo GI evaluation before they can proceed with peripheral angiography and possible intervention. The patient is to continue with the Plavix. REVIEW OF SYSTEMS: CONSTITUTIONAL: No chills. No fevers. No night sweats. No nausea or vomiting. No diarrhea. HEENT: No problems with his eyes, ears, nose, or throat. CARDIOVASCULAR: Having no current chest pain. RESPIRATORY: No shortness of breath. GENITOURINARY: No dysuria. GASTROINTESTINAL: No dysphagia. He is being followed for fecal occult blood loss by the GI service. Plan for EGD today. PSYCHIATRIC: Denied any depression. MUSCULOSKELETAL: Below the knee amputation of the right. Transverse metatarsal amputation left. He has demarcated necrosis of the plantar flap medially in an area of 2 x 3 cm. OBJECTIVE: On examination today, demarcating necrosis, dry and stable dorsomedial aspect of the transverse metatarsal amputation on the left. ASSESSMENT: Peripheral vascular disease, low albumin, anemia. Scheduled for EGD today by the GI service pending evaluation of the circulation status by the Cardiology Service. The patient is being followed by Infectious Disease and receiving Zyvox and Zosyn. The patient is being followed for renal insufficiency and low albumin. White count is stable. PLAN: To have the patient taken to the GI lab today for evaluation of GI bleed. I plan on taking the patient to surgery tomorrow for debridement of the demarcating necrosis of the plantar flap with removal of necrotic skin soft tissue and bone with the goal of achieving primary wound closure of the surgical site of the left foot. I reviewed the surgery with the patient, the risks, benefits, and postoperative course. No guarantees for healing were given. The patient will need further evaluation by the Cardiology Service for his peripheral vascular disease. The patient had the opportunity to ask questions. All questions were answered. No guarantees for healing were given. TID: [id number] RECEIPT: [id number] MTDD
--- NOTE | 2024-09-14 12:02 | PN ---
[facility] PROGRESS NOTE Date of Service: Sep 14, 2024 Time of Service: 11:59 SUBJECTIVE: The patient is a 63-year-old male with a significant medical history of poorly controlled type 2 diabetes mellitus, peripheral arterial disease, and a prior right [id number] amputation in 2020 due to right foot gangrene and necrotizing fasciitis. He presented to the emergency room on August 30, 2024, with worsening chronic wounds on the toes of his left foot, which had become increasingly necrotic and foul-smelling over the past several weeks. He also reported experiencing fever and chills. On admission, the patient was febrile with a maximum temperature of 100.0F, tachycardic with a heart rate of 102 bpm, and hypotensive with a blood pressure of 81/50 mmHg. Laboratory tests revealed leukocytosis with a WBC count of 21,400, anemia with a hemoglobin level of 10.3, and elevated creatinine at 2.0, indicating possible renal impairment. Blood cultures were positive for Gram- negative rods, later identified as Proteus mirabilis, and urine cultures showed growth of E. coli and Proteus mirabilis. The patient was admitted for management of wet gangrene of the left foot with suspected chronic osteomyelitis. He underwent a transmetatarsal amputation of the left foot on August 31, 2024, performed by Dr. Lim, which he tolerated well. Postoperatively, he was treated with broad-spectrum IV antibiotics, including Zosyn and linezolid, and received consultations from Podiatry, Infectious Disease, and Nephrology. Despite initial improvement, his white blood cell count remained elevated, and he required ongoing wound care and monitoring. Throughout his hospital stay, the patient remained stable, with vital signs improving and leukocytosis gradually resolving. He was alert, oriented, and reported adequate pain control. Case management coordinated his discharge to a long-term acute care facility ([facility]) for continued medical care, pending insurance approval. But apparently he got accepted to [facility] nursing [facility]. Upon evaluation and chart review, it was noted that the drum puller has recommended a cardiology consultation to assess the patient's circulation, given his peripheral vascular disease. Dr. De Paz has suggested a transcutaneous oximetry (TCOM) and a possible angiogram to be performed on to further evaluate and manage his vascular status. The patient remains stable and continues to receive appropriate wound care and medical management. Patient was noted with positive stool occult blood, he has been having downtrending H and H. GI recommended EGD today, unfortunately his hgb is at 6.7 today. He denies sob, dizziness at this time. We will close monitor, for the meantime we will repeat H/H now. Type and screen patient. If hgb is at 7 or less than 7, we will transfuse 1 unit PRBC. We will inform GI team. 09/14 patient remains admitted to the medical floor, BP 111/69, afebrile, saturating 100% on 3 L nasal cannula, receive 1 unit of PRBC yesterday, hemoglobin 7.8, hematocrit 23.8, WBC 6.1, platelet count of 95, sodium 136, p otassium 3.8, BUN of 21, creatinine 1.1, magnesium 1.8. Currently the patient NPO, scheduled for EGD today, status post transfusion of 1 unit of PRBC yesterday, hemoglobin improved to 7.8, continue to follow CBC in a.m. transfuse as needed, continue to follow GI input and recommendation, continue to follow Cardiology input and recommendations. Podiatry input noted and appreciated, plan to take the patient to the operating room for debridement of number getting necrosis to the plantar flap of the left foot. At the time of my visit patient comfortably in bed, alert oriented x3, case discussed with the RN, no acute events overnight. The patient denied dizziness, no headache, no chest pain, shortness shortness for breath, no nausea, no vomiting. He feels hungry. REVIEW OF SYSTEMS CONSTITUTIONAL: fevers, chills, malaise, poor oral intake NEUROLOGICAL: Denies headache, amaurosis fugax, motor weakness, sensory deficit, vertigo/spinning sensation, gait abnormalities, or tremors. ENT: No hearing loss, otalgia, otorrhea, rhinitis, rhinorrhea, hoarseness, or sore throat. CARDIOVASCULAR: Denies any exertional angina, dyspnea on exertion, orthopnea, paroxysmal nocturnal dyspnea, palpitations, life-threatening arrhythmias, claudication. PULMONARY: Denies any shortness of breath, cough, phlegm/sputum, hemoptysis, pleuritic chest pain. SLEEP: Denies morning headaches, daytime somnolence or napping. Denies difficulty falling asleep, staying asleep, waking from sleep. Denies knowledge of snoring. GASTROINTESTINAL: Denies any type of dysphagia to either liquids or solids. Denies nausea, vomiting, pyrosis, early satiety, abdominal pain, diarrhea, constipation, or changes in stool consistency or caliber. Denies coffee-ground emesis, hematemesis, hematochezia, or melanotic stools. GENITOURINARY: Denies frequency, urgency, nocturia, hematuria or incontinence (Storage/Irritative symptoms.) Low urinary stream, straining to void, urinary intermittency or hesitancy, splitting of the voiding stream, terminal dribbling. ENDOCRINOLOGIC: Hx of type 2 Diabetes mellitus HEMATOLOGIC: Denies thrombophilia/previous clots, or coagulopathy/bleeding disorders. ONCOLOGIC: Denies personal history of malignancy. DERMATOLOGIC: foul smelling necrotic toes of the left foot with non healing wounds PSYCHIATRIC: Denies any suicidal or homicidal ideation. Denies hallucinations. PHYSICAL EXAM GENERAL APPEARANCE: The patient is awake, alert, and oriented, in no acute cardiopulmonary distress. NEUROLOGICAL: Cranial nerves II-XII grossly intact. Motor is 5/5 in bilateral upper and lower extremities proximal to distal. No sensory deficits. HEENT: Face is symmetric. Pupils are equal and reactive. Extraocular movements are intact. NECK: Supple. No JVD. No thyromegaly. No submental, submandibular, pre- /postauricular, occipital or supraclavicular lymphadenopathy. CHEST: Normal chest expansion. No Telemetry. LUNGS: Absence of any rales, rhonchi or any wheezing. CARDIOVASCULAR: Regular. S1 and S2 normal. No appreciable rubs, murmurs or gallops. ABDOMEN: Soft, nontender, and nondistended. There is no rebound, voluntary g uarding, or rigidity. : Deferred. No Sandhu. EXTREMITIES: Left foot noted to have extremely foul-smelling wound with necrotic toes noted from 2nd two fifth digit, area of erythema and surrounding cellulitic changes noted Vital Signs (last 8hr) Date Time Temp Pulse Resp B/P (MAP) Pulse Ox O2 Delivery O2 Flow Rate FiO2 09/14/24 11:03 97.7 77 17 111/69 100 Nasal Cannula 3.0 09/14/24 10:58 76 17 119/78 100 Nasal Cannula 3.0 09/14/24 10:53 76 16 125/71 100 Nasal Cannula 3.0 09/14/24 10:48 73 16 117/71 100 Nasal Cannula 3.0 09/14/24 10:43 75 16 109/67 100 Nonrebreathing Mask 10.0 09/14/24 10:38 74 17 102/62 100 Nonrebreathing Mask 10.0 09/14/24 10:33 97.3 71 16 96/58 100 Nonrebreathing Mask 10.0 09/14/24 10:19 Mask 10.0 09/14/24 08:00 97.5 86 17 122/69 97 Room Air 09/14/24 08:00 100 Room Air* 0 21 09/14/24 04:00 98.2 84 18 104/61 100 Room Air LABS: Laboratory: Test 09/14/24 10:41 09/14/24 04:45 09/13/24 05:31 Range/Units Whole Blood Glucose 119 H 70-110 MG/DL White Blood Count 6.1 4.8-10.8 K/uL Red Blood Count 2.68 L 4.50-6.20 MIL/uL Hemoglobin 7.8 L 14.0-18.0 g/dL Hematocrit 23.8 L 42-54 % Mean Corpuscular Volume 88.8 79-99 fL Mean Corpuscular Hemoglobin 29.1 27.0-33.0 pg Mean Corpuscular Hemoglobin Concent 32.8 32.0-36.0 g/dL Red Cell Distribution Width 14.7 11.0-15.5 % Platelet Count 95 L 130-400 K/uL Mean Platelet Volume 9.7 7.5-10.5 fL Nucleated Red Blood Cells 0.0 0.0-0.19 % Sodium Level 136 136-145 mmol/L Potassium Level 3.8 3.5-5.1 mmol/L Chloride Level 103 101-111 mmol/L Carbon Dioxide Level 25 21-32 mmol/L Blood Urea Nitrogen 21 H 7-18 mg/dL Creatinine 1.1 0.5-1.3 mg/dL Glomerular Filtration Rate Calc 74 >90 mL/min Random Glucose 144 H 70-105 mg/dL Total Calcium 8.0 L 8.5-10.1 mg/dL Magnesium Level 1.80 1.80-2.40 mg/dL Vitamin B12 Level 372 193-986 pg/mL Current Medications Medications (Trade) Dose Ordered Sig/Nathaly Route PRN Reason Start Time Stop Time Status Last Admin Dose Admin Acetaminophen (TYLenol 325MG TAB) 650 mg Q6H PRN PO MILD PAIN (1-3) 08/30/24 17:30 09/29/24 17:29 Atorvastatin Calcium (LIPItor 20MG) 20 mg HS PO 09/11/24 21:00 10/11/24 20:59 09/13/24 20:16 20 MG Betamethasone Valerate (Betamethasone Valerate) 1 APPLICATION TID TP 09/01/24 14:00 10/01/24 13:59 Cancel Clopidogrel Bisulfate (plaVIX 75MG) 75 mg DAILY PO 09/02/24 09:00 10/02/24 08:59 09/12/24 10:06 75 MG Dextrose (D50w) 50 ml AD PRN IV HYPOGLYCEMIA PROTOCOL 08/30/24 18:00 09/29/24 17:59 Epoetin Aram-epbx (Retacrit) 10,000 unit QTH SQ 09/13/24 15:00 09/13/24 18:40 DC Epoetin Aram-epbx (Retacrit) 10,000 unit QTH SQ 09/13/24 19:00 10/13/24 18:59 09/13/24 20:43 10,000 UNIT Ferrous Sulfate (Ferrous Sulfate) 325 mg DAILY PO 09/11/24 11:00 10/11/24 10:59 09/12/24 10:06 325 MG Glucagon (Glucagon 1mg Kit) 1 mg AD PRN IM HYPOGLYCEMIA PROTOCOL 08/30/24 18:00 09/29/24 17:59 Hydromorphone HCl (DiLAUDid 0.5MG INJ) 0.2 mg Q6H PRN IVP SEVERE PAIN (7-10) 08/30/24 17:30 09/04/24 17:29 DC Insulin Human Regular (humuLIN R 100 UNIT/ML 3ML) INSULIN SLIDING SCAL... ACHS SQ 08/30/24 21:00 09/29/24 20:59 09/07/24 19:56 2 UNIT Iron Sucrose (VenoFER) 200 mg DAILY IV 09/13/24 09:00 09/15/24 09:00 09/14/24 08:48 200 MG Lactobacillus Rhamnosus ([facility]) 1 each BID PO 09/12/24 21:00 10/12/24 20:59 09/13/24 20:16 1 EACH Linezolid 300 ml @ 150 mls/hr Q12H IV 09/10/24 12:30 09/20/24 12:29 09/14/24 01:16 150 MLS/HR Linezolid 300 ml @ 150 mls/hr Q12H IV 08/30/24 18:00 08/30/24 17:37 DC Linezolid 300 ml @ 150 mls/hr Q12H IV 08/30/24 20:00 09/09/24 19:59 DC 09/09/24 08:50 150 MLS/HR Metformin HCl (glucoPHAGE) 1,000 mg BIDMEALS PO 09/07/24 17:00 09/11/24 14:00 DC 09/11/24 09:25 1,000 MG Nystatin (NystOP 15 GM POWDER) 1 APPLICATION TID TP 09/12/24 21:00 10/12/24 20:59 09/14/24 08:49 1 APPL Nystatin (NystOP 15 GM POWDER) 1 APPL BID TP 09/12/24 21:00 09/12/24 16:48 DC Ondansetron HCl (zoFRAN 4MG INJ) 4 mg Q6H PRN IVP NAUSEA/VOMITING 08/30/24 17:30 09/29/24 17:29 Pharmacy Profile Note (Pharmacy Communication) 1 each ONCE MISC 08/30/24 17:30 09/01/24 07:16 DC 08/30/24 17:56 1 EACH Piperacillin Sod/ Tazobactam Sod (Zosyn 3.375gm+NS 50ml) 3.375 gm Q12H IVPB 08/30/24 21:00 08/31/24 06:42 DC 08/30/24 23:06 3.375 GM Piperacillin Sod/ Tazobactam Sod (Zosyn 3.375gm+NS 50ml) 3.375 gm Q8H IVPB 09/10/24 15:00 09/20/24 14:59 09/14/24 06:45 3.375 GM Piperacillin Sod/ Tazobactam Sod (Zosyn 3.375gm+NS 50ml) 3.375 gm Q8H IVPB 08/31/24 07:00 09/09/24 20:59 DC 09/09/24 15:28 3.375 GM Potassium Chloride 100 ml @ 100 mls/hr AD PRN IV POTASSIUM PROTOCOL 09/06/24 08:00 10/06/24 07:59 Potassium Chloride (K-Dur/Klor-Con 20meq) 20 meq AD PRN PO POTASSIUM PROTOCOL 09/06/24 08:00 10/06/24 07:59 09/06/24 15:41 20 MEQ Potassium Chloride (KCl 10% Elixir 20meq/15ml) 20 meq AD PRN PO POTASSIUM PROTOCOL 09/06/24 08:00 10/06/24 07:59 Sodium Chloride 1,000 ml @ 75 mls/hr [id number] IV 08/30/24 20:00 09/01/24 12:55 DC 08/31/24 22:29 75 MLS/HR Thiamine HCl (Vitamin B-1) 100 mg Q24H IVP 08/30/24 18:00 09/01/24 16:47 DC 08/31/24 18:33 100 MG Thiamine HCl (Vitamin B-1) 100 mg Q24H IVP 09/01/24 20:00 10/01/24 19:59 09/13/24 20:16 100 MG Vitamin B Complex/ Vit C/Folic Acid (Nephrovite Tablet) 1 cap DAILY PO 09/01/24 09:00 10/01/24 08:59 09/12/24 10:06 1 CAP DIAGNOSTICS / RADIOLOGY: [ ] ASSESSMENT: Blood loss anemia, hgb at 6.7 Anemia, positive fecal occult blood Gas/wet gangrene of the left foot with extensively necrotic toes and underlying acute osteo-myelitis of multiple toes, POA Sepsis 2/2 complicated soft tissue infection of the left foot with underlying osteomyelitis)/Gram-negative bacteremia, POA Status post transmetatarsal amputation left foot 08/31/2024 Gram-negative bacteremia secondary secondary to Proteus mirabilis POA Urinary tract infection, secondary to E coli and Proteus mirabilis, POA Left foot wound culture positive for Proteus mirabilis Poorly controlled type 2 diabetes mellitus, POA Acute renal failure, POA Acute rhabdomyolysis, POA Anemia, POA Significant leukocytosis secondary to underlying septicemia, POA Moderate hyponatremia, POA Hx of right BKA, POA PLAN: Currently the patient NPO, scheduled for EGD today, status post transfusion of 1 unit of PRBC yesterday, hemoglobin improved to 7.8, continue to follow CBC in a.m. transfuse as needed, continue to follow GI input and recommendation, continue to follow Cardiology input and recommendations. Podiatry input noted and appreciated, plan to take the patient to the operating room for debridement of number getting necrosis to the plantar flap of the left foot. NEURO: Minimize central acting medications as possible. Fall Precautions. Well lighted room through the day and minimize interruptions through the night to prevent acute delirium. PULMONARY: Supplemental 02 as needed BiPAP as necessary, for respiratory distress Titrate Fio2 to keep Spo2 > or = 90% DuoNebs and CPT as needed IS hourly while awake for pulmonary hygiene prn Out of bed to chair as tolerated Maintain aspiration precautions at all times CARDIOVASCULAR: Follow hemodynamics. Vital signs per facility protocol GI & NUTRITION: Continue nutritional support Aspirations precautions Prokinetic agents and laxatives as needed KIDNEYS & ELECTROLYTES: Strict monitoring of intake and output Daily weights Avoid nephrotoxic agents Monitor electrolytes and replace as needed Goal urine output of 30mL/hr or 0.5mL/kg/hr Medications to be dosed according to renal function. Avoid contrast if possible ENDOCRINE: Maintain blood glucose between 100-180 at all times. Insulin sliding scale for blood glucose management Hypoglycemia and hyperglycemia protocol in place INFECTIOUS DISEASE: Trend temperature, WBC and procalcitonin level Follow cultures, deescalate antibiotics as soon as possible. Panculture if new onset fever HEMATOLOGY & COAGULATION: Monitor H&H. Keep Hgb > 7 Transfuse 1 unit of PRBC for Hgb < 7 Transfuse 1 pack of platelets of platelets < 20, 000 Watch for any signs and symptoms of bleeding SKIN: Pressure ulcer prevention per facility protocol Specialty mattress as needed ORTHO/REHAB Continue PT/OT PRN: MEDICATIONS Tylenol 650 mg po every 4 hrs for fever zofran 4 mg IV every 6 hrs for n/v Hydralazine 5 mg IV every 4 hrs systolic pressure > 160 bowel regiment: lactulose 20 gm PO BID PRN constipation Supportive measures: Continue GI and DVT prophylaxis Disposition: Pending improvement in clinical condition All questions answered time spent: > 35 min JERO RICHARDS MD Sep 14, 2024 12:02
--- NOTE | 2024-09-14 12:34 | PN ---
NEPHROLOGY PROGRESS NOTE Date/Time Patient Seen: Sep 14, 2024 SUBJECTIVE: This is a 63-year-old male with underlying history of poorly controlled type 2 diabetes mellitus, peripheral arterial disease, prior history of right [id number] amputation in 2020 due to right foot gangrene and necrotizing fasciitis. He presented to emergency room for evaluation of left foot wounds. S/p left TMA by Dr. Lim He continues to be followed by Cardiology, pending recommendations He was noted to have worsening elevated BUN/creatinine We have been consulted for renal failure. Renal function and electrolytes are stable Renal ultrasound showed normal kidneys with no hydronephrosis. He continues on antibiotics as per ID Blood cultures are positive for Proteus mirabilis Planned for debridement left foot as per Podiatry for tomorrow Cardiology has recommended HBO therapy, no peripheral angiogram is planned. S/p EGD that showed gastritis He has been started on IV iron and Epogen He was seen in the medical floor, in no acute distress Prognosis remains guarded REVIEW OF SYSTEMS: GENERAL: Positive for left foot wound. NEUROLOGIC: Negative for any blurry vision, blind spots, double vision, facial asymmetry, dysphagia, dysarthria, hemiparesis, hemisensory deficits, vertigo, ataxia. HEENT: Negative for any head trauma, neck trauma, neck stiffness, photophobia, phonophobia, sinusitis, rhinitis. CARDIAC: Negative for any chest pain, dyspnea on exertion, paroxysmal nocturnal dyspnea, peripheral edema. PULMONARY: Negative for any shortness of breath, wheezing, COPD, or TB exposure. GASTROINTESTINAL: Negative for any abdominal pain, nausea, vomiting, bright red blood per rectum, melena. GENITOURINARY: Negative for any dysuria, hematuria, incontinence. INTEGUMENTARY: Negative for any rashes, cuts, insect bites. RHEUMATOLOGIC: Negative for any joint pains, photosensitive rashes, history of vasculitis or kidney problems. HEMATOLOGIC: Negative for any abnormal bruising, frequent infections or bleeding. Vital Signs (last 8hr) Date Time Temp Pulse Resp B/P (MAP) Pulse Ox O2 Delivery O2 Flow Rate FiO2 09/14/24 11:03 97.7 77 17 111/69 100 Nasal Cannula 3.0 09/14/24 10:58 76 17 119/78 100 Nasal Cannula 3.0 09/14/24 10:53 76 16 125/71 100 Nasal Cannula 3.0 09/14/24 10:48 73 16 117/71 100 Nasal Cannula 3.0 09/14/24 10:43 75 16 109/67 100 Nonrebreathing Mask 10.0 09/14/24 10:38 74 17 102/62 100 Nonrebreathing Mask 10.0 09/14/24 10:33 97.3 71 16 96/58 100 Nonrebreathing Mask 10.0 09/14/24 10:19 Mask 10.0 09/14/24 08:00 97.5 86 17 122/69 97 Room Air 09/14/24 08:00 100 Room Air* 0 21 PHYSICAL EXAM: GENERAL: Alert and oriented x 3. No acute distress. Well-nourished. EYES: EOMI. Anicteric. HENT: Moist mucous membranes. No scleral icterus. No cervical lymphadenopathy. LUNGS: Clear to auscultation bilaterally. No accessory muscle use. CARDIOVASCULAR: Regular rate and rhythm. No murmur. No JVD. ABDOMEN: Soft, non-tender and non-distended. No palpable masses. EXTREMITIES: No edema. Non-tender. Right BKA, left TMA SKIN: No rashes or lesions. Warm. NEUROLOGIC: No focal neurological deficits. CN II-XII grossly intact, but not in dividually tested. PSYCHIATRIC: Cooperative. Appropriate mood and affect. Current Medications Medications (Trade) Dose Ordered Sig/Nathaly Route Start Time Stop Time Status Last Admin Dose Admin Betamethasone Valerate (Betamethasone Valerate) 1 APPLICATION TID TP 09/01/24 14:00 10/01/24 13:59 Cancel Clopidogrel Bisulfate (plaVIX 75MG) 75 mg DAILY PO 09/02/24 09:00 10/02/24 08:59 Insulin Human Regular (humuLIN R 100 UNIT/ML 3ML) INSULIN SLIDING SCAL... ACHS SQ 08/30/24 21:00 09/29/24 20:59 09/01/24 16:50 3 UNIT Linezolid 300 ml @ 150 mls/hr Q12H IV 08/30/24 18:00 08/30/24 17:37 DC Linezolid 300 ml @ 150 mls/hr Q12H IV 08/30/24 20:00 09/09/24 19:59 09/02/24 09:34 150 MLS/HR Pharmacy Profile Note (Pharmacy Communication) 1 each ONCE MISC 08/30/24 17:30 09/01/24 07:16 DC 08/30/24 17:56 1 EACH Piperacillin Sod/ Tazobactam Sod (Zosyn 3.375gm+NS 50ml) 3.375 gm Q12H IVPB 08/30/24 21:00 08/31/24 06:42 DC 08/30/24 23:06 3.375 GM Piperacillin Sod/ Tazobactam Sod (Zosyn 3.375gm+NS 50ml) 3.375 gm Q8H IVPB 08/31/24 07:00 09/09/24 20:59 09/02/24 05:21 3.375 GM Sodium Chloride 1,000 ml @ 75 mls/hr [id number] IV 08/30/24 20:00 09/01/24 12:55 DC 08/31/24 22:29 75 MLS/HR Thiamine HCl (Vitamin B-1) 100 mg Q24H IVP 08/30/24 18:00 09/01/24 16:47 DC 08/31/24 18:33 100 MG Thiamine HCl (Vitamin B-1) 100 mg Q24H IVP 09/01/24 20:00 10/01/24 19:59 09/01/24 19:55 100 MG Vitamin B Complex/ Vit C/Folic Acid (Nephrovite Tablet) 1 cap DAILY PO 09/01/24 09:00 10/01/24 08:59 09/02/24 09:34 1 CAP LABORATORY: [ ] Hematology Labs: Test 09/14/24 04:45 Range/Units White Blood Count 6.1 4.8-10.8 K/uL Red Blood Count 2.68 L 4.50-6.20 MIL/uL Hemoglobin 7.8 L 14.0-18.0 g/dL Hematocrit 23.8 L 42-54 % Mean Corpuscular Volume 88.8 79-99 fL Mean Corpuscular Hemoglobin 29.1 27.0-33.0 pg Mean Corpuscular Hemoglobin Concent 32.8 32.0-36.0 g/dL Red Cell Distribution Width 14.7 11.0-15.5 % Platelet Count 95 L 130-400 K/uL Mean Platelet Volume 9.7 7.5-10.5 fL Nucleated Red Blood Cells 0.0 0.0-0.19 % Chemistry Labs: Test 09/14/24 12:11 09/14/24 04:45 09/13/24 05:31 Range/Units Whole Blood Glucose 106 70-110 MG/DL Sodium Level 136 136-145 mmol/L Potassium Level 3.8 3.5-5.1 mmol/L Chloride Level 103 101-111 mmol/L Carbon Dioxide Level 25 21-32 mmol/L Blood Urea Nitrogen 21 H 7-18 mg/dL Creatinine 1.1 0.5-1.3 mg/dL Glomerular Filtration Rate Calc 74 >90 mL/min Random Glucose 144 H 70-105 mg/dL Total Calcium 8.0 L 8.5-10.1 mg/dL Magnesium Level 1.80 1.80-2.40 mg/dL Vitamin B12 Level 372 193-986 pg/mL DIAGNOSTICS / RADIOLOGY: PATIENT: CHADD MAGDALENO MR#: [id number] : 1960 SEX: M AGE: 64 LOCATION: [facility] ORDER 48 STATUS: ADM IN REPORT#: [id number] SERVICE 47 REASON: CONFIRM PICC LINE PLACEMENT ORDERING PHYSICIAN: BRAULIO BRIDGES MD PROCEDURE: CXR1VW - CHEST 1VW EXAM: CR Chest, 1 view CLINICAL HISTORY: Line placement. COMPARISON: CT chest dated 09/02/2024. FINDINGS: The right PICC line tip overlies the superior cavoatrial junction. The lungs show no infiltrates or other acute findings. No pleural effusion or pneumothorax. The cardiomediastinal silhouette is within normal limits. No acute osseous abnormality. IMPRESSION: The right PICC line tip overlies the superior cavoatrial junction. No acute cardiopulmonary process is evident. No adverse interval changes. /[place] DICTATED BY: GISEL CHACON Jr., MD DATE: 09/05/2424 ELECTRONICALLY SIGNED BY: GISEL CHACON Jr., MD DATE: 09/05/2424 PATIENT: CHADD MAGDALENO MR#: [id number] : 1960 SEX: M AGE: 64 LOCATION: [facility] ORDER 1020 STATUS: ADM IN REPORT#: [id number] SERVICE 1018 REASON: PAD; with LEFT lower extremity runoff ORDERING PHYSICIAN: KANIKA CROFT PROCEDURE: CTA ABDAOR - CT ANGIO ABD AORTA W RUNOFF EXAM: CTA bilateral Lower Extremities with Intravenous Contrast. CLINICAL HISTORY: Amputation of the right lower limb. TECHNIQUE: Axial CTA images of the bilateral Lower Extremities performed with intravenous contrast in the arterial phase with coronal and sagittal reformatted images generated and reviewed. 3-D reformatted images generated on an independent workstation and also reviewed. CONTRAST: Yes. COMPARISON: None provided. FINDINGS: Aorta: Atherosclerosis in the aorta with multiple calcified and non-calcified plaques at the origin of coeiliac axis, superior mesenteric artery and in the aortic neves without any flow limiting stenosis. VASCULATURE: Common Femoral Artery: Mild circumferential wall thickening with small calcified and non-calcified plaques on both sides without any flow limiting stenosis. Superficial Femoral Artery: Circumferential wall thickening with calcified plaques causing focal areas of luminal narrowing by approximately 20-30% on both sides. There is a focal area of luminal narrowing by approximately 60-70% in the lower one-thirds of the right superficial femoral artery. Deep Femoral Artery: No acute finding. No occlusion, rupture, aneurysm or dissection. Popliteal and Calf Arteries: There is circumferential calcifications in the bilateral popliteal and anterior and posterior tibial arteries with complete occlusion of the right popliteal artery and the right anterior and posterior tibial arteries. The left popliteal artery shows no significant luminal compromise. There is attenuated contrast opacification in the upper and mid segments of left anterior tibial artery with occlusion distally. Soft tissues: Unremarkable. Bones: Status post right below the knee amputation. No acute osseous abnormality. IMPRESSION: 1. Atherosclerosis in the aorta and in arteries of bilateral lower limb with complete occlusion of the right popliteal and proximal right anterior and posterior tibial arteries. Status post right below the knee amputation. 2. High-grade stenosis in the proximal and mid left anterior tibial artery with occlusion distally. 3. No abdominal aortic aneurysm or dissection. /[place] DICTATED BY: PATRICIA LAWSON MD DATE: 09/04/24647 ELECTRONICALLY SIGNED BY: PATRICIA LAWSON MD DATE: 09/04/24647 PATIENT: CHADD MAGDALENO MR#: [id number] : 1960 SEX: M AGE: 64 LOCATION: 2D ORDER 1245 STATUS: ADM IN REPORT#: [id number] SERVICE 1227 REASON: cad,chf ORDERING PHYSICIAN: CHARIS OROSCO MD PROCEDURE: ECHO CMP - ECHO 2-D COMPLETE APPROVED REPORT EXAM: Two-dimensional and M-mode echocardiogram with Doppler and color Doppler. Study Details: Diabts M , PVD INDICATION ICD: CAD , chf 2D Dimensions RVDd 3.4 cm LVEF(%) 70.2 (>50%) LVED Vol(simp.) 86.7 mL IVSd 0.9 (0.7-1.1cm) FS(%) 40 % LVES Vol(simp.) 38.5 mL LVDd 4.6 (3.8-5.6cm) LA (2D) 2.8 (1.6-4.0cm) LVEF(%, simp.) 56 % PWd 0.8 (0.7-1.1cm) Ao Root(2D) 3.3 (2.0-3.7cm) LA ESV INDEX (4CH) 21.00 mL/m2 IVSs 1.1 cm LVOT diam 2.0 (1.8-2.4cm) LA ESV INDEX (2CH) 15.31 mL/m2 LVDs 2.8 (2.5-4.0cm) LA ESV INDEX (BP) 15.38 mL/m2 PWs 1.2 cm Deformation Strain Apical 4 16.8 % Apical 2 13.2 % Apical 3 15.0 % Global Strain 15.0 % M-Mode Dimensions EPSS 1.8 cm LA (MM) 3.4 (1.6-4.0cm) Ao Root(MM) 3.4 (2.0-3.7cm) Aortic Valve AoV Vmax 0.9 m/s Ao Peak GR 3.2 mmHg LVOT Vmax 0.8 m/s AoV VTI 0.2 m Ao Mean GR 1.7 mmHg LVOT VTI 0.15 m CAITLIN (VMAX) 3.04 cm2 CAITLIN (VTI) 3.1 cm2 Mitral Valve MV E Vmax 61.6 cm/s DECEL Time 244 ms MV A Vmax 95.3 cm/s E/A ratio 0.6 TDI E/E' Medial 10.5 E/E' Lateral 6.4 Medial E' Peak V 5.86 cm/s Lateral E' Peak V 9.56 cm/s Pulmonary Valve PV Vmax 0.9 m/s PV VTI 0.18 m PV Mean GR 2.0 mmHg PV Peak GR 3.5 mmHg Left Ventricle The left ventricle is normal size. There is normal LV segmental wall motion. There is normal left ventricular wall thickness. LVEF is 50-55%. Stage I diastol ic dysfunction. Right Ventricle The right ventricle is normal size. The right ventricular systolic function is normal. Atria The left atrium size is normal. The interatrial septum is intact with no evidence for an atrial septal defect. The right atrium size is normal. Aortic Valve Aortic valve NCC leaflets mild calcified. Trace aortic regurgitation. There is no aortic valvular stenosis. Mitral Valve The mitral valve is mildly thickened. Mild posterior mitral annular calcification present. There is no evidence of significant mitral regurgitation. There is no mitral valve stenosis. Tricuspid Valve The tricuspid valve is normal in structure. There is no tricuspid valve regurgitation noted. Pulmonic Valve Pulmonic valve is not well visualized. There is trace pulmonic valvular regurgitation. Great Vessels The aortic root is normal in size. The ascending aorta is normal in size. IVC is not well visualized. Pericardium not visualized Conclusion LVEF is 50-55%. Stage I diastolic dysfunction. There is normal LV segmental wall motion. Aortic valve NCC leaflets mild calcified. Trace aortic regurgitation. The mitral valve is mildly thickened. Mild posterior mitral annular calcification present. DICTATED BY: CHARIS OROSCO MD DATE: 09/01/24 1118 ELECTRONICALLY SIGNED BY: CHARIS OROSCO MD DATE: 09/01/24 4889 PATIENT: CHADD MAGDALENO MR#: [id number] : 1960 SEX: M AGE: 63 LOCATION: [facility] ORDER 37 STATUS: ADM IN REPORT#: [id number] SERVICE 34 REASON: rule out any significant lung infiltrates, sepsis, foot infection ORDERING PHYSICIAN: BRAULIO BRIDGES MD PROCEDURE: CXR1VW - CHEST 1VW EXAM: CR Chest, 1 View. CLINICAL HISTORY: rule out any significant lung infiltrates, sepsis, foot infection COMPARISON: 05/02/2017 FINDINGS: LUNGS: There is no mass, infiltrate, or acute pulmonary abnormality. PLEURAL SPACES: No pleural effusion or pneumothorax. MEDIASTINUM: Cardiac size and mediastinal contours within normal limits. BONES: No aggressive appearing osseous lesion seen. IMPRESSION: No acute cardiopulmonary pathology is evident. /[place] DICTATED BY: PATRICIA LAWSON MD DATE: 08/30/242003 REASON: acute renal failure, uncontrolled DM II ORDERING PHYSICIAN: BRAULIO BRIDGES MD PROCEDURE: RENAL - US RENAL SONOGRAM EXAMINATION: Renal ultrasound. COMPARISON: None provided. HISTORY: acute renal failure, uncontrolled DM II FINDINGS: The right kidney measures 9.9 cm and is normal in echotexture. The left kidney measures 9.2 cm and is normal in echotexture. There are no focal renal lesions. There are no renal stones. There is no hydronephrosis. There is mild debris noted in the urinary bladder. Cystitis should be excluded. IMPRESSION: Normal kidneys. No hydronephrosis Mild debris noted in the urinary bladder. Cystitis should be excluded. /[place] DICTATED BY: PATRICIA LAWSON MD DATE: 08/30/242022 PATIENT: CHADD MAGDALENO MR#: [id number] : 1960 SEX: M AGE: 63 LOCATION: [facility] ORDER 23 STATUS: ADM IN REPORT#: [id number] SERVICE 1717 REASON: non healing left foot wound with necrotic toes, assess for severe PAD ORDERING PHYSICIAN: BRAULIO BRIDGES MD PROCEDURE: ART B LE - US ARTERIAL BILAT LOW EXT DUPL EXAMINATION: DUPLEX ULTRASOUND EXAMINATION OF THE BILATERAL LOWER EXTREMITY ARTERIES. CLINICAL HISTORY: Non-healing wound in the left, to assess for peripheral arterial disease. COMPARISON: Lower extremity arterial doppler dated 12/29/2020. FINDINGS: Peak systolic velocities within the right lower arteries are as follows: Common femoral artery: 56 cm/s. Superficial femoral artery: 55 cm/s at proximal, 71 cm/s at mid, and 50 cm/s at distal segments. Popliteal artery: 28 cm/s at proximal and 37 cm/s at distal segments. The right lower limb arteries demonstrate biphasic waveforms in all arteries. The below knee arteries are not assessed, post amputation status. Peak systolic velocities within the left lower arteries are as follows: Common femoral artery: 66 cm/s. Superficial femoral artery: 71 cm/s at proximal, 72 cm/s at mid, and 72 cm/s at distal segments. Popliteal artery: 56 cm/s at proximal and 55 cm/s at distal segments. Posterior tibial artery: 30 cm/s. Anterior tibial artery: 47 cm/s. Dorsalis pedis artery: 67 cm/s. The left lower limb arteries demonstrate biphasic waveforms in all arteries other than posterior tibial, anterior tibial, and dorsalis pedis arteries which demonstrate monophasic waveforms. There is intimal wall thickening in both lower limb arteries. IMPRESSION: Mild intimal wall thickening in both the lower limb arteries. Both lower limb arteries demonstrate biphasic waveforms in all arteries other than left posterior tibial, anterior tibial, and dorsalis pedis arteries which demonstrate monophasic waveforms. No flow limiting lesions. /[place] DICTATED BY: PATRICIA LAWSON MD DATE: 08/30/242034 PATIENT: CHADD MAGDALENO MR#: [id number] : 1960 SEX: M AGE: 63 LOCATION: [facility] ORDER 1501 STATUS: ADM IN REPORT#: [id number] SERVICE 1500 REASON: SEPSIS ORDERING PHYSICIAN: IVON UNDERWOOD MD PROCEDURE: FT 3VW LT - FOOT COMP 3+VWS LT EXAM: CR Left foot, 3 View. CLINICAL HISTORY: SEPSIS COMPARISON: Comparison: Radiograph dated September 21, 2016 Findings: AP, oblique, lateral views of the left foot are submitted. Interval amputation of the great toe from the distal metatarsal. There is edema and subcutaneous emphysema within the soft tissues overlying the first metatarsal. Presumed interval amputation of the second toe from the mid to distal second proximal phalanx and of the third toe from the distal interphalangeal joint. Clinical correlation is advised. There is suggestion of bone loss and cortical irregularities seen within the mid diaphyses of the 3rd and 4th proximal phalanxes. Findings may reflect osteomyelitis. Recommend contrast-enhanced MRI of the midfoot/forefoot for further evaluation. IMPRESSION: 1. Status post interval amputation of great toe, second toe, and third toe with soft tissue edema and subcutaneous emphysema overlying the first metatarsal. 2. Possible osteomyelitis of 3rd and 4th proximal phalanxes. Recommend MRI of the midfoot/forefoot for further evaluation. /[place] DICTATED BY: GISEL CHACON Jr., MD DATE: 08/30/241855 ASSESSMENT: Acute renal failure Acute rhabdomyolysis Anemia Hyponatremia Sepsis UTI Bacteremia Gas/wet gangrene of the left foot with extensively necrotic toes and underlying acute osteo-myelitis of multiple toe Poorly controlled type 2 diabetes mellitus PAD S/p right BKA Noncompliance Hyperlipidemia Positive fecal occult blood test s/p EGD Thrombocytopenia PLAN: Labs, diagnostic, radiologic exams reviewed and interpreted by myself and supervising physician. We have reviewed external records in detail Continue with IV iron and Epogen Planned for debridement with Dr. Haley tomorrow 1.5 Fluid restriction is advised Require close monitoring of renal function and electrolytes Order CBC, CMP, and electrolytes in am Continue with antibiotics as per ID BiPAP as necessary, for respiratory distress Monitor blood pressure adjust medication doses as needed Avoid hypotensive episodes May use Dilaudid 0.5 mg IV every 6 hours as needed for severe pain Monitor blood sugars Strict intake, output, and daily weight should be monitored Please renally adjust medications Avoid nephrotoxic and nonsteroidal drugs Avoid contrast if possible Will continue to monitor renal function, anemia, electrolytes Treatment plan discussed with patient Questions were answered We have discussed with the other team physicians in detail about the care plan We will continue to monitor the patient closely ATTESTATION BY PHYSICIAN I have seen and examined the patient. I reviewed the documentation, medical decision making, and treatment plan as noted by the mid-level provider above. I agree with the findings and plan of care. EMMIE KRAMER MD, [facility] Sep 14, 2024 12:34
--- NOTE | 2024-09-14 12:56 | NUR ---
PT Eval 09/12 was entered incorrectly on patient's chart. PT will follow up with patient post procedure
--- NOTE | 2024-09-14 13:24 | PN ---
Cardiology Progress Note Date of Service: 09/14/2024 Attending Industrial Engineering Manager: Dr. Romain De Paz Primary Industrial Engineering Manager: Dr. Vickey Villalpando Reason for Consult: PAD Problem List: -Sepsis -Leukocytosis -Bacteremia (Proteus mirabilis) -Gangrene (Proteus mirabilis, Staph aureus) with osteomyelitis affecting multiple digits of the left foot s/p left TMA done on 08/31/2024 -PAD, [place] category 5 symptoms (LLE) -UTI (E coli, Proteus mirabilis) -Acute on chronic renal insufficiency with baseline CKD stage III -Hyponatremia -Symptomatic anemia s/p PRBC transfusion -Thrombocytopenia -Positive fecal occult blood test s/p EGD done on 09/14/2024 which identified chronic gastritis, but no identifiable source of bleeding -Normocytic normochromic anemia -Positive fecal occult -Low normal LV systolic function (LVEF: 50-55% by echo done 09/21/2024) -HLP -DM2 -PAD s/p right BKA -Protein malnutrition -Noncompliance Subjective: This is a 64y/o male who was seen and evaluated at the bedside today. Vitals/Labs Vital Signs Date Time Temp Pulse Resp B/P (MAP) Pulse Ox O2 Delivery O2 Flow Rate FiO2 09/14/24 11:03 97.7 77 17 111/69 100 Nasal Cannula 3.0 09/14/24 08:00 21 General: Awake and alert. No acute distress. Chronically ill appearing. Cachetic and frail. HEENT: Normocephalic, atraumatic. EOMI. Oral mucosa was moist. Neck: No masses, JVD, or carotid bruits noted. Lungs: No respiratory distress. SCM. Bilaterally clear to auscultation. No obvious wheezing, rales, or rhonchi. Cardiac: Regular rate. Normal S1 and S2, +S4. No other obvious murmurs, rubs, or gallops noted. Abdomen: Soft, nontender, nondistended. No organomegaly. Normoactive bowel sounds x 4 quadrants. Extremities: No edema, clubbing, or cyanosis. Right BKA. The left TMA site is wrapped in a bulky dressing, so we are unable to assess distal pulses. Neuro: Cranial nerves II-XII are grossly intact. No obvious focal deficits identified. Laboratory Tests 7/18/25 04:45 Assessment: -Sepsis -Leukocytosis -Bacteremia (Proteus mirabilis) -Gangrene (Proteus mirabilis, Staph aureus) with osteomyelitis affecting multiple digits of the left foot s/p left TMA done on 08/31/2024 -PAD, [place] category 5 symptoms (LLE) -UTI (E coli, Proteus mirabilis) -Acute on chronic renal insufficiency with baseline CKD stage III -Hyponatremia -Symptomatic anemia s/p PRBC transfusion -Thrombocytopenia -Positive fecal occult blood test s/p EGD done on 09/14/2024 which identified chronic gastritis, but no identifiable source of bleeding -Normocytic normochromic anemia -Positive fecal occult -Low normal LV systolic function (LVEF: 50-55% by echo done 09/21/2024) -HLP -DM2 -PAD s/p right BKA -Protein malnutrition -Noncompliance Plan: 1. PAD, [place] category 5 symptoms (LLE) -Of concern, is that the patient's underlying PAD will impact wound healing to the left TMA site. -The patient is status post PRBC transfusion due to symptomatic anemia. He underwent an EGD this morning which did not identify a source of bleeding, thus we recommend proceeding with a colonoscopy to complete the GI workup. -In addition, the patient's laboratory data shows that the patient is now thrombocytopenic as well, so we can consider a Hematology evaluation. -The TCOM analysis identified that the patient should heal from the TMA site with HBO therapy. As a result, we recommend that the patient be referred for HBO therapy. -We will refrain from pursing further percutaneous peripheral evaluation (peripheral angiogram with possible intervention) this admission, but if he fails to heal despite HBO therapy, and if his anemia and thrombocytopenia stabilizes, we can consider peripheral angiography as an outpatient. -In the meantime, the patient will continue on clopidogrel 75 mg daily and atorvastatin 20 mg QHS. -In addition, he should continue on IV antibiotic therapy and with aggressive wound care. We will be signing off of the case. Please have the patient follow up with Cardiology, Dr. Vickey Villalpando, 1-2 weeks after discharge. This case was discussed with my Supervising Physician, Dr. Romain De Paz, and the above-mentioned plan was formulated and agreed upon. -Progress Note written by Imelda Bush, MSN, CERTIFIED GENETIC COUNSELOR, AGACNP- IMELDA BUSH NP Sep 14, 2024 13:24
--- NOTE | 2024-09-14 15:59 | NUR ---
CM NOTE: DCP [facility] CM REACHED OUT TO DR RICHARDS VIA SECURE TEXT, MADE AWARE OF DR BETTENCOURT'S RECOMMENDATIONS FOR LTAC. INITIALLY GOT DENIED FOR [facility] AND DR BETTENCOURT PER CONSUELO W/BAL DID NOT WANT TO GO A EXPEDITED APPEAL. CM OBTAINED AUTH FOR [facility], AUTH GOOD UNTIL SATURDAY 09/16. MADE AWARE [facility] CAN DO IV ABX, WOUNDVAC, AND PT AT SNF LEVEL. AGREEABLE. CM TO FOLLOW THROUGH W/SNF REFERRAL PENDING DR LAYNE TO CLEAR AFTER PROCEDURE. IZZY DIRECTOR AWARE. CM TO CONTINUE TO FOLLOW UP.
--- NOTE | 2024-09-14 19:50 | PN ---
INFECTIOUS DISEASE PROGRESS NOTE Date of Service: Sep 14, 2024 SUBJECTIVE: Patient is awake, alert and oriented x 3. Patient is awake, alert and oriented. Patient is s/p EGD today with findings of chronic gastritis. Hemoglobin is stable at 7.8. No fever, temperature is 97.7. Patient to continue on Zosyn and linezolid IV. Patient will be going for debridement of the left foot TMA tomorrow. Will need 4 weeks of IV antibiotics and Case management to arrange for LTAC placement. PHYSICAL EXAM EYES: Anicteric. Pupils equal and reactive. HENT: No oral thrush seen, moist Oral mucosa. NECK: Supple, no JVD or thyromegaly. LUNGS: Good air entry. No rales, no rhonchi. CARDIOVASCULAR: S1, S2 regular. No murmur heard. ABDOMEN: Soft, non tender, bowel sounds present, no organomegaly. CENTRAL NERVOUS SYSTEM: Awake, alert, oriented x 3. SKIN: No rashes, no swelling. LYMPHATICS: No peripheral lymphadenopathy MUSCULOSKELETAL: No joint swelling, erythema or tenderness. EXTREMITIES: Dry dressing to left lower extremity. Left TMA. History of right BKA BACK: No deformity, no pressure ulcer. GENITOURINARY: No dysuria or hematuria. Vital Sign (Last 12 Hours) 09/14/24 09/14/24 09/14/24 09/14/24 08:00 08:00 10:19 10:33 Temp 97.5 97.3 Pulse 86 71 Resp 17 16 B/P (MAP) 122/69 96/58 Pulse Ox 100 97 100 O2 Delivery Room Air* Room Air Mask Nonrebreathing Mask O2 Flow Rate 0 10.0 10.0 FiO2 21 09/14/24 09/14/24 09/14/24 09/14/24 10:38 10:43 10:48 10:53 Pulse 74 75 73 76 Resp 17 16 16 16 B/P (MAP) 102/62 109/67 117/71 125/71 Pulse Ox 100 100 100 100 O2 Delivery Nonrebreathing Mask Nonrebreathing Mask Nasal Cannula Nasal Cannula O2 Flow Rate 10.0 10.0 3.0 3.0 09/14/24 09/14/24 09/14/24 09/14/24 10:58 11:03 11:30 11:45 Temp 97.7 97.5 Pulse 76 77 100 96 Resp 17 17 17 B/P (MAP) 119/78 111/69 128/73 125/74 Pulse Ox 100 100 99 99 O2 Delivery Nasal Cannula Nasal Cannula Room Air Room Air O2 Flow Rate 3.0 3.0 09/14/24 09/14/24 09/14/24 09/14/24 12:00 12:15 12:45 13:15 Pulse 92 88 92 85 B/P (MAP) 119/81 122/78 116/70 111/72 Pulse Ox 99 99 99 97 O2 Delivery Room Air Room Air Room Air 09/14/24 09/14/24 09/14/24 14:15 15:15 16:15 Pulse 89 91 85 B/P (MAP) 103/62 102/61 105/59 Pulse Ox 97 96 96 O2 Delivery Room Air Room Air Room Air LABS: Laboratory: Test 09/14/24 19:33 09/14/24 04:45 09/13/24 05:31 Range/Units Whole Blood Glucose 118 H 70-110 MG/DL White Blood Count 6.1 4.8-10.8 K/uL Red Blood Count 2.68 L 4.50-6.20 MIL/uL Hemoglobin 7.8 L 14.0-18.0 g/dL Hematocrit 23.8 L 42-54 % Mean Corpuscular Volume 88.8 79-99 fL Mean Corpuscular Hemoglobin 29.1 27.0-33.0 pg Mean Corpuscular Hemoglobin Concent 32.8 32.0-36.0 g/dL Red Cell Distribution Width 14.7 11.0-15.5 % Platelet Count 95 L 130-400 K/uL Mean Platelet Volume 9.7 7.5-10.5 fL Nucleated Red Blood Cells 0.0 0.0-0.19 % Sodium Level 136 136-145 mmol/L Potassium Level 3.8 3.5-5.1 mmol/L Chloride Level 103 101-111 mmol/L Carbon Dioxide Level 25 21-32 mmol/L Blood Urea Nitrogen 21 H 7-18 mg/dL Creatinine 1.1 0.5-1.3 mg/dL Glomerular Filtration Rate Calc 74 >90 mL/min Random Glucose 144 H 70-105 mg/dL Total Calcium 8.0 L 8.5-10.1 mg/dL Magnesium Level 1.80 1.80-2.40 mg/dL Vitamin B12 Level 372 193-986 pg/mL ASSESSMENT: Left foot diabetic ulcer with polymicrobial infection, possible osteomyelitis, status post transmetatarsal amputation on 08/31/2024. Proteus mirabilis bacteremia. Urinary tract infection with ESBL, E coli and Proteus mirabilis. Leukocytosis, resolved. Peripheral Artery disease. Diabetes mellitus Chronic kidney disease. Anemia, requiring blood transfusion, s/p EGD with findings of chronic gastritis. PLAN: Continue linezolid IV. Continue Zosyn. Continue pain management. Continue antidiabetics. Continue wound care. Will need 4 weeks of IV antibiotics and Case management to arrange for LTAC placement. Peripheral angiogram was postponed until further notice. This case was reviewed and discussed with my supervising physician and the above assessment and plan was formulated and agreed upon. ATTESTATION BY PHYSICIAN I have seen and examined the patient. I reviewed the documentation, medical decision making, and treatment plan as noted by the mid-level provider above. I agree with the findings and plan of care. SUSANNE BETTENCOURT MD, [facility] Sep 14, 2024 19:50
[2024-09-15] VITALS (23 sets, daily range): BP systolic 95–122; BP diastolic 60–73; PULSE 83–88; RESP 15–20; TEMP 97.1–98; O2SAT 98
[2024-09-15 05:16] LABS: NUCLEATED RED BLOOD CELLS 0.0 % (0.0-0.19); PLATELET COUNT (AUTO) 79.0 K/uL (130-400); RED BLOOD CELL COUNT(AUTO) 2.64 MIL/uL (4.50-6.20); RED CELL DISTRIBUTION WIDTH 14.4 % (11.0-15.5); WHITE BLOOD COUNT (AUTO) 5.4 K/uL (4.8-10.8)
[2024-09-15 05:35] LABS: ASPARTATE AMINOTRANSFERASE 14.0 U/L (10-37); CREATININE 1.0 mg/dL (0.5-1.3); GLOMERULAR FILTR. RATE CALC 83.0 mL/min (>90); GLUCOSE,RANDOM 111.0 mg/dL (70-105); SODIUM SERUM 137.0 mmol/L (136-145); TOTAL PROTEIN, SERUM 5.1 g/dL (6.0-8.3); UREA NITROGEN, BLOOD 13.0 mg/dL (7-18)
[2024-09-15] MEDS ORDERED: LIDOCAINE HCL 1% 20 ML VIAL ONE (06:59)
[2024-09-15] MEDS ORDERED: LIDOCAINE PF 100MG/5ML (2%) SYRINGE 5ML ONE (07:22)
[2024-09-15] MEDS ORDERED: MIDAZOLAM HCL 1 MG/ML 2ML VIAL ONE (07:22)
[2024-09-15] MEDS: LIDOCAINE HCL 1% 20 ML VIAL INJ ONE (08:00)
--- NOTE | 2024-09-15 10:56 | PN ---
[facility] PROGRESS NOTE Date of Service: Sep 15, 2024 Time of Service: 10:51 SUBJECTIVE: The patient is a 63-year-old male with a significant medical history of poorly controlled type 2 diabetes mellitus, peripheral arterial disease, and a prior right [id number] amputation in 2020 due to right foot gangrene and necrotizing fasciitis. He presented to the emergency room on August 30, 2024, with worsening chronic wounds on the toes of his left foot, which had become increasingly necrotic and foul-smelling over the past several weeks. He also reported experiencing fever and chills. On admission, the patient was febrile with a maximum temperature of 100.0F, tachycardic with a heart rate of 102 bpm, and hypotensive with a blood pressure of 81/50 mmHg. Laboratory tests revealed leukocytosis with a WBC count of 21,400, anemia with a hemoglobin level of 10.3, and elevated creatinine at 2.0, indicating possible renal impairment. Blood cultures were positive for Gram- negative rods, later identified as Proteus mirabilis, and urine cultures showed growth of E. coli and Proteus mirabilis. The patient was admitted for management of wet gangrene of the left foot with suspected chronic osteomyelitis. He underwent a transmetatarsal amputation of the left foot on August 31, 2024, performed by Dr. Lim, which he tolerated well. Postoperatively, he was treated with broad-spectrum IV antibiotics, including Zosyn and linezolid, and received consultations from Podiatry, Infectious Disease, and Nephrology. Despite initial improvement, his white blood cell count remained elevated, and he required ongoing wound care and monitoring. Throughout his hospital stay, the patient remained stable, with vital signs improving and leukocytosis gradually resolving. He was alert, oriented, and reported adequate pain control. Case management coordinated his discharge to a long-term acute care facility ([facility]) for continued medical care, pending insurance approval. But apparently he got accepted [facility]. Upon evaluation and chart review, it was noted that the electrical accessories ii assembler has recommended a cardiology consultation to assess the patient's circulation, given his peripheral vascular disease. Dr. De Paz has suggested a transcutaneous oximetry (TCOM) and a possible angiogram to be performed on to further evaluate and manage his vascular status. The patient remains stable and continues to receive appropriate wound care and medical management. Patient was noted with positive stool occult blood, he has been having downtrending H and H. GI recommended EGD today, unfortunately his hgb is at 6.7 today. He denies sob, dizziness at this time. We will close monitor, for the meantime we will repeat H/H now. Type and screen patient. If hgb is at 7 or less than 7, we will transfuse 1 unit PRBC. We will inform GI team. 09/14 patient remains admitted to the medical floor, BP 111/69, afebrile, saturating 100% on 3 L nasal cannula, receive 1 unit of PRBC yesterday, hemoglobin 7.8, hematocrit 23.8, WBC 6.1, platelet count of 95, sodium 136, p otassium 3.8, BUN of 21, creatinine 1.1, magnesium 1.8. Currently the patient NPO, scheduled for EGD today, status post transfusion of 1 unit of PRBC yesterday, hemoglobin improved to 7.8, continue to follow CBC in a.m. transfuse as needed, continue to follow GI input and recommendation, continue to follow Cardiology input and recommendations. Podiatry input noted and appreciated, plan to take the patient to the operating room for debridement of number getting necrosis to the plantar flap of the left foot. At the time of my visit patient comfortably in bed, alert oriented x3, case discussed with the RN, no acute events overnight. The patient denied dizziness, no headache, no chest pain, shortness shortness for breath, no nausea, no vomiting. He feels hungry. 09/15 patient remains admitted to the medical floor, hemodynamically stable, BP 170/65, rest of the vital signs are unremarkable. Noted to have slight drop in hemoglobin and hematocrit, today 7.7/23.3. Magnesium level 1.7. Patient is status post transfusion of 1 unit of PRBC 09/13/2024, continue to monitor CBC and transfuse as needed. EGD done 09/14/2024, no acute findings. Continue to follow GI input and recommendations in terms of colonoscopy. Cardiology input noted and appreciated, recommended proceeding with colonoscopy to complete the GI workup.The TCOM analysis identified that the patient should heal from the TMA site with HBO therapy. As a result, we recommend that the patient be referred for HBO therapy. No further cardiac interventions, however if anemia and thrombocytopenia stabilizes and the patient fails to heal despite HBO therapy, can consider peripheral angiography as an outpatient. The meantime the patient to continue Plavix 75 mg p.o. daily and atorvastatin 20 mg p.o. q.h.s.. Continue the patient on broad-spectrum IV antibiotics. Podiatry contemplating debridement of necrosis plantar flap left foot. Patient with thrombocytopenia, we will request Hematology consultation. At the time of my visit the patient is awake, alert and oriented, following commands, case discussed with the RN, no acute events overnight. Patient getting good pain control with current medical management, getting IV antibiotics at the time of my visit, no family members at bedside. REVIEW OF SYSTEMS CONSTITUTIONAL: fevers, chills, malaise, poor oral intake NEUROLOGICAL: Denies headache, amaurosis fugax, motor weakness, sensory deficit, vertigo/spinning sensation, gait abnormalities, or tremors. ENT: No hearing loss, otalgia, otorrhea, rhinitis, rhinorrhea, hoarseness, or sore throat. CARDIOVASCULAR: Denies any exertional angina, dyspnea on exertion, orthopnea, paroxysmal nocturnal dyspnea, palpitations, life-threatening arrhythmias, claudication. PULMONARY: Denies any shortness of breath, cough, phlegm/sputum, hemoptysis, pleuritic chest pain. SLEEP: Denies morning headaches, daytime somnolence or napping. Denies difficulty falling asleep, staying asleep, waking from sleep. Denies knowledge of snoring. GASTROINTESTINAL: Denies any type of dysphagia to either liquids or solids. Denies nausea, vomiting, pyrosis, early satiety, abdominal pain, diarrhea, constipation, or changes in stool consistency or caliber. Denies coffee-ground emesis, hematemesis, hematochezia, or melanotic stools. GENITOURINARY: Denies frequency, urgency, nocturia, hematuria or incontinence (Storage/Irritative symptoms.) Low urinary stream, straining to void, urinary intermittency or hesitancy, splitting of the voiding stream, terminal dribbling. ENDOCRINOLOGIC: Hx of type 2 Diabetes mellitus HEMATOLOGIC: Denies thrombophilia/previous clots, or coagulopathy/bleeding disorders. ONCOLOGIC: Denies personal history of malignancy. DERMATOLOGIC: foul smelling necrotic toes of the left foot with non healing wounds PSYCHIATRIC: Denies any suicidal or homicidal ideation. Denies hallucinations. PHYSICAL EXAM GENERAL APPEARANCE: The patient is awake, alert, and oriented, in no acute cardiopulmonary distress. NEUROLOGICAL: Cranial nerves II-XII grossly intact. Motor is 5/5 in bilateral upper and lower extremities proximal to distal. No sensory deficits. HEENT: Face is symmetric. Pupils are equal and reactive. Extraocular movements are intact. NECK: Supple. No JVD. No thyromegaly. No submental, submandibular, pre- /postauricular, occipital or supraclavicular lymphadenopathy. CHEST: Normal chest expansion. No Telemetry. LUNGS: Absence of any rales, rhonchi or any wheezing. CARDIOVASCULAR: Regular. S1 and S2 normal. No appreciable rubs, murmurs or gallops. ABDOMEN: Soft, nontender, and nondistended. There is no rebound, voluntary guarding, or rigidity. : Deferred. No Sandhu. EXTREMITIES: Left foot noted to have extremely foul-smelling wound with necrotic toes noted from 2nd two fifth digit, area of erythema and surrounding cellulitic changes noted Vital Signs (last 8hr) Date Time Temp Pulse Resp B/P (MAP) Pulse Ox O2 Delivery O2 Flow Rate FiO2 09/15/24 09:35 97.2 83 16 117/65 98 Room Air 09/15/24 09:30 97.2 84 15 114/66 98 Room Air 09/15/24 09:30 97.9 85 18 105/66 97 Room Air 09/15/24 09:25 97.2 85 15 111/65 98 Room Air 09/15/24 09:20 97.2 85 15 114/67 98 Room Air 09/15/24 09:15 97.2 83 15 112/64 98 Room Air 09/15/24 09:10 97.2 84 15 115/65 98 Room Air 09/15/24 09:05 97.2 85 15 116/68 98 Room Air 09/15/24 09:00 97.2 87 15 113/68 100 Room Air 21 09/15/24 08:55 97.2 85 16 112/73 100 Nonrebreathing Mask 10.0 100 09/15/24 08:50 97.2 84 15 113/73 100 Nonrebreathing Mask 10.0 100 09/15/24 08:45 97.2 85 15 105/67 97 Nonrebreathing Mask 10.0 100 09/15/24 04:09 97.9 88 17 104/64 100 Room Air LABS: Laboratory: Test 09/15/24 10:26 09/15/24 05:00 Range/Units Whole Blood Glucose 80 70-110 MG/DL White Blood Count 5.4 4.8-10.8 K/uL Red Blood Count 2.64 L 4.50-6.20 MIL/uL Hemoglobin 7.7 L 14.0-18.0 g/dL Hematocrit 23.3 L 42-54 % Mean Corpuscular Volume 88.3 79-99 fL Mean Corpuscular Hemoglobin 29.2 27.0-33.0 pg Mean Corpuscular Hemoglobin Concent 33.0 32.0-36.0 g/dL Red Cell Distribution Width 14.4 11.0-15.5 % Platelet Count 79 L 130-400 K/uL Mean Platelet Volume 10.2 7.5-10.5 fL Nucleated Red Blood Cells 0.0 0.0-0.19 % Sodium Level 137 136-145 mmol/L Potassium Level 3.6 3.5-5.1 mmol/L Chloride Level 105 101-111 mmol/L Carbon Dioxide Level 25 21-32 mmol/L Blood Urea Nitrogen 13 7-18 mg/dL Creatinine 1.0 0.5-1.3 mg/dL Glomerular Filtration Rate Calc 83 >90 mL/min Random Glucose 111 H 70-105 mg/dL Total Calcium 7.7 L 8.5-10.1 mg/dL Magnesium Level 1.70 L 1.80-2.40 mg/dL Total Bilirubin 0.4 0.2-1.0 mg/dL Aspartate Amino Transf (AST/SGOT) 14 10-37 U/L Alanine Aminotransferase (ALT/SGPT) 12 12-78 U/L Alkaline Phosphatase 62 50-136 U/L Total Protein 5.1 L 6.0-8.3 g/dL Albumin 1.8 L 3.5-5.0 g/dL Current Medications Medications (Trade) Dose Ordered Sig/Nathaly Route PRN Reason Start Time Stop Time Status Last Admin Dose Admin Acetaminophen (TYLenol 325MG TAB) 650 mg Q6H PRN PO MILD PAIN (1-3) 08/30/24 17:30 09/29/24 17:29 Atorvastatin Calcium (LIPItor 20MG) 20 mg HS PO 09/11/24 21:00 10/11/24 20:59 09/14/24 22:29 20 MG Betamethasone Valerate (Betamethasone Valerate) 1 APPLICATION TID TP 09/01/24 14:00 10/01/24 13:59 Cancel Clopidogrel Bisulfate (plaVIX 75MG) 75 mg DAILY PO 09/02/24 09:00 10/02/24 08:59 09/15/24 10:00 75 MG Dextrose (D50w) 50 ml AD PRN IV HYPOGLYCEMIA PROTOCOL 08/30/24 18:00 09/29/24 17:59 Epoetin Aram-epbx (Retacrit) 10,000 unit QTH SQ 09/13/24 15:00 09/13/24 18:40 DC Epoetin Aram-epbx (Retacrit) 10,000 unit QTH SQ 09/13/24 19:00 10/13/24 18:59 09/13/24 20:43 10,000 UNIT Ferrous Sulfate (Ferrous Sulfate) 325 mg DAILY PO 09/11/24 11:00 10/11/24 10:59 09/15/24 10:00 325 MG Glucagon (Glucagon 1mg Kit) 1 mg AD PRN IM HYPOGLYCEMIA PROTOCOL 08/30/24 18:00 09/29/24 17:59 Hydromorphone HCl (DiLAUDid 0.5MG INJ) 0.2 mg Q6H PRN IVP SEVERE PAIN (7-10) 08/30/24 17:30 09/04/24 17:29 DC Insulin Human Regular (humuLIN R 100 UNIT/ML 3ML) INSULIN SLIDING SCAL... ACHS SQ 08/30/24 21:00 09/29/24 20:59 09/07/24 19:56 2 UNIT Iron Sucrose (VenoFER) 200 mg DAILY IV 09/13/24 09:00 09/15/24 09:00 DC 09/15/24 10:00 200 MG Lactobacillus Rhamnosus ([facility] [employer]It [employer] Aicent) 1 each BID PO 09/12/24 21:00 10/12/24 20:59 09/15/24 10:00 1 EACH Linezolid 300 ml @ 150 mls/hr Q12H IV 09/10/24 12:30 09/20/24 12:29 09/14/24 23:51 150 MLS/HR Linezolid 300 ml @ 150 mls/hr Q12H IV 08/30/24 18:00 08/30/24 17:37 DC Linezolid 300 ml @ 150 mls/hr Q12H IV 08/30/24 20:00 09/09/24 19:59 DC 09/09/24 08:50 150 MLS/HR Metformin HCl (glucoPHAGE) 1,000 mg BIDMEALS PO 09/07/24 17:00 09/11/24 14:00 DC 09/11/24 09:25 1,000 MG Nystatin (NystOP 15 GM POWDER) 1 APPLICATION TID TP 09/12/24 21:00 10/12/24 20:59 09/15/24 10:01 1 APPL Nystatin (NystOP 15 GM POWDER) 1 APPL BID TP 09/12/24 21:00 09/12/24 16:48 DC Ondansetron HCl (zoFRAN 4MG INJ) 4 mg Q6H PRN IVP NAUSEA/VOMITING 08/30/24 17:30 09/29/24 17:29 Pharmacy Profile Note (Pharmacy Communication) 1 each ONCE MISC 08/30/24 17:30 09/01/24 07:16 DC 08/30/24 17:56 1 EACH Piperacillin Sod/ Tazobactam Sod (Zosyn 3.375gm+NS 50ml) 3.375 gm Q12H IVPB 08/30/24 21:00 08/31/24 06:42 DC 08/30/24 23:06 3.375 GM Piperacillin Sod/ Tazobactam Sod (Zosyn 3.375gm+NS 50ml) 3.375 gm Q8H IVPB 09/10/24 15:00 09/20/24 14:59 09/15/24 06:31 3.375 GM Piperacillin Sod/ Tazobactam Sod (Zosyn 3.375gm+NS 50ml) 3.375 gm Q8H IVPB 08/31/24 07:00 09/09/24 20:59 DC 09/09/24 15:28 3.375 GM Potassium Chloride 100 ml @ 100 mls/hr AD PRN IV POTASSIUM PROTOCOL 09/06/24 08:00 10/06/24 07:59 Potassium Chloride (K-Dur/Klor-Con 20meq) 20 meq AD PRN PO POTASSIUM PROTOCOL 09/06/24 08:00 10/06/24 07:59 09/06/24 15:41 20 MEQ Potassium Chloride (KCl 10% Elixir 20meq/15ml) 20 meq AD PRN PO POTASSIUM PROTOCOL 09/06/24 08:00 10/06/24 07:59 Sodium Chloride 1,000 ml @ 75 mls/hr [id number] IV 08/30/24 20:00 09/01/24 12:55 DC 08/31/24 22:29 75 MLS/HR Thiamine HCl (Vitamin B-1) 100 mg Q24H IVP 08/30/24 18:00 09/01/24 16:47 DC 08/31/24 18:33 100 MG Thiamine HCl (Vitamin B-1) 100 mg Q24H IVP 09/01/24 20:00 10/01/24 19:59 09/14/24 22:30 100 MG Vitamin B Complex/ Vit C/Folic Acid (Nephrovite Tablet) 1 cap DAILY PO 09/01/24 09:00 10/01/24 08:59 09/15/24 10:00 1 CAP DIAGNOSTICS / RADIOLOGY: [ ] ASSESSMENT: Blood loss anemia, hgb at 6.7 Anemia, positive fecal occult blood Gas/wet gangrene of the left foot with extensively necrotic toes and underlying acute osteo-myelitis of multiple toes, POA Sepsis 2/2 complicated soft tissue infection of the left foot with underlying osteomyelitis)/Gram-negative bacteremia, POA Status post transmetatarsal amputation left foot 08/31/2024 Gram-negative bacteremia secondary secondary to Proteus mirabilis POA Urinary tract infection, secondary to E coli and Proteus mirabilis, POA Left foot wound culture positive for Proteus mirabilis Poorly controlled type 2 diabetes mellitus, POA Acute renal failure, POA Acute rhabdomyolysis, POA Anemia, POA Significant leukocytosis secondary to underlying septicemia, POA Moderate hyponatremia, POA Hx of right BKA, POA PLAN: Patient is status post transfusion of 1 unit of PRBC 09/13/2024, continue to monitor CBC and transfuse as needed. EGD done 09/14/2024, no acute findings. Continue to follow GI input and recommendations in terms of colonoscopy. Cardiology input noted and appreciated, recommended proceeding with colonoscopy to complete the GI workup.The TCOM analysis identified that the patient should heal from the TMA site with HBO therapy. As a result, we recommend that the patient be referred for HBO therapy. No further cardiac interventions, however if anemia and thrombocytopenia stabilizes and the patient fails to heal despite HBO therapy, can consider peripheral angiography as an outpatient. The meantime the patient to continue Plavix 75 mg p.o. daily and atorvastatin 20 mg p.o. q.h.s.. Continue the patient on broad-spectrum IV antibiotics. Podiatry contemplating debridement of necrosis plantar flap left foot. Patient with thrombocytopenia, we will request Hematology consultation. NEURO: Minimize central acting medications as possible. Fall Precautions. Well lighted room through the day and minimize interruptions through the night to prevent acute delirium. PULMONARY: Supplemental 02 as needed BiPAP as necessary, for respiratory distress Titrate Fio2 to keep Spo2 > or = 90% DuoNebs and CPT as needed IS hourly while awake for pulmonary hygiene prn Out of bed to chair as tolerated Maintain aspiration precautions at all times CARDIOVASCULAR: Follow hemodynamics. Vital signs per facility protocol GI & NUTRITION: Continue nutritional support Aspirations precautions Prokinetic agents and laxatives as needed KIDNEYS & ELECTROLYTES: Strict monitoring of intake and output Daily weights Avoid nephrotoxic agents Monitor electrolytes and replace as needed Goal urine output of 30mL/hr or 0.5mL/kg/hr Medications to be dosed according to renal function. Avoid contrast if possible ENDOCRINE: Maintain blood glucose between 100-180 at all times. Insulin sliding scale for blood glucose management Hypoglycemia and hyperglycemia protocol in place INFECTIOUS DISEASE: Trend temperature, WBC and procalcitonin level Follow cultures, deescalate antibiotics as soon as possible. Panculture if new onset fever HEMATOLOGY & COAGULATION: Monitor H&H. Keep Hgb > 7 Transfuse 1 unit of PRBC for Hgb < 7 Transfuse 1 pack of platelets of platelets < 20, 000 Watch for any signs and symptoms of bleeding SKIN: Pressure ulcer prevention per facility protocol Specialty mattress as needed ORTHO/REHAB Continue PT/OT PRN: MEDICATIONS Tylenol 650 mg po every 4 hrs for fever zofran 4 mg IV every 6 hrs for n/v Hydralazine 5 mg IV every 4 hrs systolic pressure > 160 bowel regiment: lactulose 20 gm PO BID PRN constipation Supportive measures: Continue GI and DVT prophylaxis Disposition: Pending improvement in clinical condition All questions answered time spent: > 35 min JERO RICHARDS MD Sep 15, 2024 10:56
[2024-09-15] MEDS ORDERED: MAGNESIUM 2GM PREMIX 50ML 50 ML IV PRN (13:30)
--- NOTE | 2024-09-15 15:00 | PN ---
NEPHROLOGY PROGRESS NOTE Date/Time Patient Seen: Sep 15, 2024 SUBJECTIVE: This is a 63-year-old male with underlying history of poorly controlled type 2 diabetes mellitus, peripheral arterial disease, prior history of right [id number] amputation in 2020 due to right foot gangrene and necrotizing fasciitis. He presented to emergency room for evaluation of left foot wounds. S/p left TMA by Dr. Lim He continues to be followed by Cardiology, pending recommendations He was noted to have worsening elevated BUN/creatinine We have been consulted for renal failure. Renal function and electrolytes are stable Renal ultrasound showed normal kidneys with no hydronephrosis. He continues on antibiotics as per ID Blood cultures are positive for Proteus mirabilis Planned for debridement left foot as per Podiatry for tomorrow Cardiology has recommended HBO therapy, no peripheral angiogram is planned. S/p EGD that showed gastritis He has been started on IV iron and Epogen S/P debridement by Dr Lim He was seen in the medical floor, in no acute distress Prognosis remains guarded REVIEW OF SYSTEMS: GENERAL: Positive for left foot wound. NEUROLOGIC: Negative for any blurry vision, blind spots, double vision, facial asymmetry, dysphagia, dysarthria, hemiparesis, hemisensory deficits, vertigo, ataxia. HEENT: Negative for any head trauma, neck trauma, neck stiffness, photophobia, phonophobia, sinusitis, rhinitis. CARDIAC: Negative for any chest pain, dyspnea on exertion, paroxysmal nocturnal dyspnea, peripheral edema. PULMONARY: Negative for any shortness of breath, wheezing, COPD, or TB exposure. GASTROINTESTINAL: Negative for any abdominal pain, nausea, vomiting, bright red blood per rectum, melena. GENITOURINARY: Negative for any dysuria, hematuria, incontinence. INTEGUMENTARY: Negative for any rashes, cuts, insect bites. RHEUMATOLOGIC: Negative for any joint pains, photosensitive rashes, history of vasculitis or kidney problems. HEMATOLOGIC: Negative for any abnormal bruising, frequent infections or bleeding. Vital Signs (last 8hr) Date Time Temp Pulse Resp B/P (MAP) Pulse Ox O2 Delivery O2 Flow Rate FiO2 09/14/24 11:03 97.7 77 17 111/69 100 Nasal Cannula 3.0 09/14/24 10:58 76 17 119/78 100 Nasal Cannula 3.0 09/14/24 10:53 76 16 125/71 100 Nasal Cannula 3.0 09/14/24 10:48 73 16 117/71 100 Nasal Cannula 3.0 09/14/24 10:43 75 16 109/67 100 Nonrebreathing Mask 10.0 09/14/24 10:38 74 17 102/62 100 Nonrebreathing Mask 10.0 09/14/24 10:33 97.3 71 16 96/58 100 Nonrebreathing Mask 10.0 09/14/24 10:19 Mask 10.0 09/14/24 08:00 97.5 86 17 122/69 97 Room Air 09/14/24 08:00 100 Room Air* 0 21 PHYSICAL EXAM: GENERAL: Alert and oriented x 3. No acute distress. Well-nourished. EYES: EOMI. Anicteric. HENT: Moist mucous membranes. No scleral icterus. No cervical lymphadenopathy. LUNGS: Clear to auscultation bilaterally. No accessory muscle use. CARDIOVASCULAR: Regular rate and rhythm. No murmur. No JVD. ABDOMEN: Soft, non-tender and non-distended. No palpable masses. EXTREMITIES: No edema. Non-tender. Right BKA, left TMA SKIN: No rashes or lesions. Warm. NEUROLOGIC: No focal neurological deficits. CN II-XII grossly intact, but not individually tested. PSYCHIATRIC: Cooperative. Appropriate mood and affect. Current Medications Medications (Trade) Dose Ordered Sig/Nathaly Route Start Time Stop Time Status Last Admin Dose Admin Betamethasone Valerate (Betamethasone Valerate) 1 APPLICATION TID TP 09/01/24 14:00 10/01/24 13:59 Cancel Clopidogrel Bisulfate (plaVIX 75MG) 75 mg DAILY PO 09/02/24 09:00 10/02/24 08:59 Insulin Human Regular (humuLIN R 100 UNIT/ML 3ML) INSULIN SLIDING SCAL... ACHS SQ 08/30/24 21:00 09/29/24 20:59 09/01/24 16:50 3 UNIT Linezolid 300 ml @ 150 mls/hr Q12H IV 08/30/24 18:00 08/30/24 17:37 DC Linezolid 300 ml @ 150 mls/hr Q12H IV 08/30/24 20:00 09/09/24 19:59 09/02/24 09:34 150 MLS/HR Pharmacy Profile Note (Pharmacy Communication) 1 each ONCE MISC 08/30/24 17:30 09/01/24 07:16 DC 08/30/24 17:56 1 EACH Piperacillin Sod/ Tazobactam Sod (Zosyn 3.375gm+NS 50ml) 3.375 gm Q12H IVPB 08/30/24 21:00 08/31/24 06:42 DC 08/30/24 23:06 3.375 GM Piperacillin Sod/ Tazobactam Sod (Zosyn 3.375gm+NS 50ml) 3.375 gm Q8H IVPB 08/31/24 07:00 09/09/24 20:59 09/02/24 05:21 3.375 GM Sodium Chloride 1,000 ml @ 75 mls/hr [id number] IV 08/30/24 20:00 09/01/24 12:55 DC 08/31/24 22:29 75 MLS/HR Thiamine HCl (Vitamin B-1) 100 mg Q24H IVP 08/30/24 18:00 09/01/24 16:47 DC 08/31/24 18:33 100 MG Thiamine HCl (Vitamin B-1) 100 mg Q24H IVP 09/01/24 20:00 10/01/24 19:59 09/01/24 19:55 100 MG Vitamin B Complex/ Vit C/Folic Acid (Nephrovite Tablet) 1 cap DAILY PO 09/01/24 09:00 10/01/24 08:59 09/02/24 09:34 1 CAP LABORATORY: [ ] Hematology Labs: Test 09/15/24 05:00 Range/Units White Blood Count 5.4 4.8-10.8 K/uL Red Blood Count 2.64 L 4.50-6.20 MIL/uL Hemoglobin 7.7 L 14.0-18.0 g/dL Hematocrit 23.3 L 42-54 % Mean Corpuscular Volume 88.3 79-99 fL Mean Corpuscular Hemoglobin 29.2 27.0-33.0 pg Mean Corpuscular Hemoglobin Concent 33.0 32.0-36.0 g/dL Red Cell Distribution Width 14.4 11.0-15.5 % Platelet Count 79 L 130-400 K/uL Mean Platelet Volume 10.2 7.5-10.5 fL Nucleated Red Blood Cells 0.0 0.0-0.19 % Chemistry Labs: Test 09/15/24 10:26 09/15/24 05:00 Range/Units Whole Blood Glucose 80 70-110 MG/DL Sodium Level 137 136-145 mmol/L Potassium Level 3.6 3.5-5.1 mmol/L Chloride Level 105 101-111 mmol/L Carbon Dioxide Level 25 21-32 mmol/L Blood Urea Nitrogen 13 7-18 mg/dL Creatinine 1.0 0.5-1.3 mg/dL Glomerular Filtration Rate Calc 83 >90 mL/min Random Glucose 111 H 70-105 mg/dL Total Calcium 7.7 L 8.5-10.1 mg/dL Magnesium Level 1.70 L 1.80-2.40 mg/dL Total Bilirubin 0.4 0.2-1.0 mg/dL Aspartate Amino Transf (AST/SGOT) 14 10-37 U/L Alanine Aminotransferase (ALT/SGPT) 12 12-78 U/L Alkaline Phosphatase 62 50-136 U/L Total Protein 5.1 L 6.0-8.3 g/dL Albumin 1.8 L 3.5-5.0 g/dL DIAGNOSTICS / RADIOLOGY: PATIENT: CHADD MAGDALENO MR#: [id number] : 1960 SEX: M AGE: 64 LOCATION: [facility] ORDER 48 STATUS: ADM IN REPORT#: [id number] SERVICE 47 REASON: CONFIRM PICC LINE PLACEMENT ORDERING PHYSICIAN: BRAULIO BRIDGES MD PROCEDURE: CXR1VW - CHEST 1VW EXAM: CR Chest, 1 view CLINICAL HISTORY: Line placement. COMPARISON: CT chest dated 09/02/2024. FINDINGS: The right PICC line tip overlies the superior cavoatrial junction. The lungs show no infiltrates or other acute findings. No pleural effusion or pneumothorax. The cardiomediastinal silhouette is within normal limits. No acute osseous abnormality. IMPRESSION: The right PICC line tip overlies the superior cavoatrial junction. No acute cardiopulmonary process is evident. No adverse interval changes. /[place] DICTATED BY: GISEL CHACON Jr., MD DATE: 09/05/2424 ELECTRONICALLY SIGNED BY: GISEL CHACON Jr., MD DATE: 09/05/2424 PATIENT: CHADD MAGDALENO MR#: [id number] : 1960 SEX: M AGE: 64 LOCATION: [facility] ORDER 1020 STATUS: ADM IN REPORT#: [id number] SERVICE 1018 REASON: PAD; with LEFT lower extremity runoff ORDERING PHYSICIAN: KANIKA CROFT PROCEDURE: CTA ABDAOR - CT ANGIO ABD AORTA W RUNOFF EXAM: CTA bilateral Lower Extremities with Intravenous Contrast. CLINICAL HISTORY: Amputation of the right lower limb. TECHNIQUE: Axial CTA images of the bilateral Lower Extremities performed with intravenous contrast in the arterial phase with coronal and sagittal reformatted images generated and reviewed. 3-D reformatted images generated on an independent workstation and also reviewed. CONTRAST: Yes. COMPARISON: None provided. FINDINGS: Aorta: Atherosclerosis in the aorta with multiple calcified and non-calcified plaques at the origin of coeiliac axis, superior mesenteric artery and in the aortic neves without any flow limiting stenosis. VASCULATURE: Common Femoral Artery: Mild circumferential wall thickening with small calcified and non-calcified plaques on both sides without any flow limiting stenosis. Superficial Femoral Artery: Circumferential wall thickening with calcified plaques causing focal areas of luminal narrowing by approximately 20-30% on both sides. There is a focal area of luminal narrowing by approximately 60-70% in the lower one-thirds of the right superficial femoral artery. Deep Femoral Artery: No acute finding. No occlusion, rupture, aneurysm or dissection. Popliteal and Calf Arteries: There is circumferential calcifications in the bilateral popliteal and anterior and posterior tibial arteries with complete occlusion of the right popliteal artery and the right anterior and posterior tibial arteries. The left popliteal artery shows no significant luminal compromise. There is attenuated contrast opacification in the upper and mid segments of left anterior tibial artery with occlusion distally. Soft tissues: Unremarkable. Bones: Status post right below the knee amputation. No acute osseous abnormality. IMPRESSION: 1. Atherosclerosis in the aorta and in arteries of bilateral lower limb with complete occlusion of the right popliteal and proximal right anterior and posterior tibial arteries. Status post right below the knee amputation. 2. High-grade stenosis in the proximal and mid left anterior tibial artery with occlusion distally. 3. No abdominal aortic aneurysm or dissection. /[place] DICTATED BY: PATRICIA LAWSON MD DATE: 09/04/24647 ELECTRONICALLY SIGNED BY: PATRICIA LAWSON MD DATE: 09/04/24647 PATIENT: CHADD MAGDALENO MR#: [id number] : 1960 SEX: M AGE: 64 LOCATION: [facility] ORDER 1245 STATUS: ADM IN REPORT#: [id number] SERVICE 1227 REASON: cad,chf ORDERING PHYSICIAN: CHARIS ROOSCO MD PROCEDURE: ECHO [facility] - ECHO 2-D COMPLETE APPROVED REPORT EXAM: Two-dimensional and M-mode echocardiogram with Doppler and color Doppler. Study Details: Diabts M , PVD INDICATION ICD: CAD , chf 2D Dimensions RVDd 3.4 cm LVEF(%) 70.2 (>50%) LVED Vol(simp.) 86.7 mL IVSd 0.9 (0.7-1.1cm) FS(%) 40 % LVES Vol(simp.) 38.5 mL LVDd 4.6 (3.8-5.6cm) LA (2D) 2.8 (1.6-4.0cm) LVEF(%, simp.) 56 % PWd 0.8 (0.7-1.1cm) Ao Root(2D) 3.3 (2.0-3.7cm) LA ESV INDEX (4CH) 21.00 mL/m2 IVSs 1.1 cm LVOT diam 2.0 (1.8-2.4cm) LA ESV INDEX (2CH) 15.31 mL/m2 LVDs 2.8 (2.5-4.0cm) LA ESV INDEX (BP) 15.38 mL/m2 PWs 1.2 cm Deformation Strain Apical 4 16.8 % Apical 2 13.2 % Apical 3 15.0 % Global Strain 15.0 % M-Mode Dimensions EPSS 1.8 cm LA (MM) 3.4 (1.6-4.0cm) Ao Root(MM) 3.4 (2.0-3.7cm) Aortic Valve AoV Vmax 0.9 m/s Ao Peak GR 3.2 mmHg LVOT Vmax 0.8 m/s AoV VTI 0.2 m Ao Mean GR 1.7 mmHg LVOT VTI 0.15 m CAITLIN (VMAX) 3.04 cm2 CAITLIN (VTI) 3.1 cm2 Mitral Valve MV E Vmax 61.6 cm/s DECEL Time 244 ms MV A Vmax 95.3 cm/s E/A ratio 0.6 TDI E/E' Medial 10.5 E/E' Lateral 6.4 Medial E' Peak V 5.86 cm/s Lateral E' Peak V 9.56 cm/s Pulmonary Valve PV Vmax 0.9 m/s PV VTI 0.18 m PV Mean GR 2.0 mmHg PV Peak GR 3.5 mmHg Left Ventricle The left ventricle is normal size. There is normal LV segmental wall motion. There is normal left ventricular wall thickness. LVEF is 50-55%. Stage I diastolic dysfunction. Right Ventricle The right ventricle is normal size. The right ventricular systolic function is normal. Atria The left atrium size is normal. The interatrial septum is intact with no evidence for an atrial septal defect. The right atrium size is normal. Aortic Valve Aortic valve NCC leaflets mild calcified. Trace aortic regurgitation. There is no aortic valvular stenosis. Mitral Valve The mitral valve is mildly thickened. Mild posterior mitral annular calcification present. There is no evidence of significant mitral regurgitation. There is no mitral valve stenosis. Tricuspid Valve The tricuspid valve is normal in structure. There is no tricuspid valve regurgitation noted. Pulmonic Valve Pulmonic valve is not well visualized. There is trace pulmonic valvular regurgitation. Great Vessels The aortic root is normal in size. The ascending aorta is normal in size. IVC is not well visualized. Pericardium not visualized Conclusion LVEF is 50-55%. Stage I diastolic dysfunction. There is normal LV segmental wall motion. Aortic valve NCC leaflets mild calcified. Trace aortic regurgitation. The mitral valve is mildly thickened. Mild posterior mitral annular calcification present. DICTATED BY: CHARIS OROSCO MD DATE: 09/01/24 1114 ELECTRONICALLY SIGNED BY: CHARIS OROSCO MD DATE: 09/01/24 141 PATIENT: CHADD MAGDALENO MR#: [id number] : 1960 SEX: M AGE: 63 LOCATION: [facility] ORDER 37 STATUS: ADM IN REPORT#: [id number] SERVICE 173 REASON: rule out any significant lung infiltrates, sepsis, foot infection ORDERING PHYSICIAN: BRAULIO BRIDGES MD PROCEDURE: CXR1VW - CHEST 1VW EXAM: CR Chest, 1 View. CLINICAL HISTORY: rule out any significant lung infiltrates, sepsis, foot infection COMPARISON: 05/02/2017 FINDINGS: LUNGS: There is no mass, infiltrate, or acute pulmonary abnormality. PLEURAL SPACES: No pleural effusion or pneumothorax. MEDIASTINUM: Cardiac size and mediastinal contours within normal limits. BONES: No aggressive appearing osseous lesion seen. IMPRESSION: No acute cardiopulmonary pathology is evident. /[place] DICTATED BY: PATRICIA LAWSON MD DATE: 08/30/242003 REASON: acute renal failure, uncontrolled DM II ORDERING PHYSICIAN: BRAULIO BRIDGES MD PROCEDURE: RENAL - US RENAL SONOGRAM EXAMINATION: Renal ultrasound. COMPARISON: None provided. HISTORY: acute renal failure, uncontrolled DM II FINDINGS: The right kidney measures 9.9 cm and is normal in echotexture. The left kidney measures 9.2 cm and is normal in echotexture. There are no focal renal lesions. There are no renal stones. There is no hydronephrosis. There is mild debris noted in the urinary bladder. Cystitis should be excluded. IMPRESSION: Normal kidneys. No hydronephrosis Mild debris noted in the urinary bladder. Cystitis should be excluded. /[place] DICTATED BY: PATRICIA LAWSON MD DATE: 08/30/242022 PATIENT: CHADD MAGDALENO MR#: [id number] : 1960 SEX: M AGE: 63 LOCATION: [facility] ORDER 23 STATUS: ADM IN REPORT#: [id number] SERVICE 16 REASON: non healing left foot wound with necrotic toes, assess for severe PAD ORDERING PHYSICIAN: BRAULIO BRIDGES MD PROCEDURE: ART B LE - US ARTERIAL BILAT LOW EXT DUPL EXAMINATION: DUPLEX ULTRASOUND EXAMINATION OF THE BILATERAL LOWER EXTREMITY ARTERIES. CLINICAL HISTORY: Non-healing wound in the left, to assess for peripheral arterial disease. COMPARISON: Lower extremity arterial doppler dated 12/29/2020. FINDINGS: Peak systolic velocities within the right lower arteries are as follows: Common femoral artery: 56 cm/s. Superficial femoral artery: 55 cm/s at proximal, 71 cm/s at mid, and 50 cm/s at distal segments. Popliteal artery: 28 cm/s at proximal and 37 cm/s at distal segments. The right lower limb arteries demonstrate biphasic waveforms in all arteries. The below knee arteries are not assessed, post amputation status. Peak systolic velocities within the left lower arteries are as follows: Common femoral artery: 66 cm/s. Superficial femoral artery: 71 cm/s at proximal, 72 cm/s at mid, and 72 cm/s at distal segments. Popliteal artery: 56 cm/s at proximal and 55 cm/s at distal segments. Posterior tibial artery: 30 cm/s. Anterior tibial artery: 47 cm/s. Dorsalis pedis artery: 67 cm/s. The left lower limb arteries demonstrate biphasic waveforms in all arteries other than posterior tibial, anterior tibial, and dorsalis pedis arteries which demonstrate monophasic waveforms. There is intimal wall thickening in both lower limb arteries. IMPRESSION: Mild intimal wall thickening in both the lower limb arteries. Both lower limb arteries demonstrate biphasic waveforms in all arteries other than left posterior tibial, anterior tibial, and dorsalis pedis arteries which demonstrate monophasic waveforms. No flow limiting lesions. /[place] DICTATED BY: PATRICIA LAWSON MD DATE: 08/30/242034 PATIENT: CHADD MAGDALENO MR#: [id number] : 1960 SEX: M AGE: 63 LOCATION: [facility] ORDER 1501 STATUS: ADM IN REPORT#: [id number] SERVICE 1500 REASON: SEPSIS ORDERING PHYSICIAN: IVON UNDERWOOD MD PROCEDURE: FT 3VW LT - FOOT COMP 3+VWS LT EXAM: CR Left foot, 3 View. CLINICAL HISTORY: SEPSIS COMPARISON: Comparison: Radiograph dated September 21, 2016 Findings: AP, oblique, lateral views of the left foot are submitted. Interval amputation of the great toe from the distal metatarsal. There is edema and subcutaneous emphysema within the soft tissues overlying the first metatarsal. Presumed interval amputation of the second toe from the mid to distal second proximal phalanx and of the third toe from the distal interphalangeal joint. Clinical correlation is advised. There is suggestion of bone loss and cortical irregularities seen within the mid diaphyses of the 3rd and 4th proximal phalanxes. Findings may reflect osteomyelitis. Recommend contrast-enhanced MRI of the midfoot/forefoot for further evaluation. IMPRESSION: 1. Status post interval amputation of great toe, second toe, and third toe with soft tissue edema and subcutaneous emphysema overlying the first metatarsal. 2. Possible osteomyelitis of 3rd and 4th proximal phalanxes. Recommend MRI of the midfoot/forefoot for further evaluation. /[place] DICTATED BY: GISEL CHACON Jr., MD DATE: 08/30/241855 ASSESSMENT: Acute renal failure Acute rhabdomyolysis Anemia Hyponatremia Sepsis UTI Bacteremia Gas/wet gangrene of the left foot with extensively necrotic toes and underlying acute osteo-myelitis of multiple toe Poorly controlled type 2 diabetes mellitus PAD S/p right BKA Noncompliance Hyperlipidemia Positive fecal occult blood test s/p EGD Thrombocytopenia PLAN: Labs, diagnostic, radiologic exams reviewed and interpreted by myself and supervising physician. We have reviewed external records in detail 1.5 Fluid restriction is advised Require close monitoring of renal function and electrolytes Order CBC, CMP, and electrolytes in am Continue with antibiotics as per ID BiPAP as necessary, for respiratory distress Monitor blood pressure adjust medication doses as needed Avoid hypotensive episodes May use Dilaudid 0.5 mg IV every 6 hours as needed for severe pain Monitor blood sugars Strict intake, output, and daily weight should be monitored Please renally adjust medications Avoid nephrotoxic and nonsteroidal drugs Avoid contrast if possible Will continue to monitor renal function, anemia, electrolytes Treatment plan discussed with patient Questions were answered We have discussed with the other team physicians in detail about the care plan We will continue to monitor the patient closely ATTESTATION BY PHYSICIAN I have seen and examined the patient. I reviewed the documentation, medical decision making, and treatment plan as noted by the mid-level provider above. I agree with the findings and plan of care. EMMIE KRAMER MD, [facility] Sep 15, 2024 15:00
--- NOTE | 2024-09-15 15:22 | PN ---
INFECTIOUS DISEASE PROGRESS NOTE Date of Service: Sep 15, 2024 SUBJECTIVE: This 64 year old male patient is being seen today at bedside. Patient has no fever or chills. No nausea or vomiting. Patient remains on linezolid and Zosyn tolerating well. Patient is status post debridement of the left foot TMA. No shortness of breath. No distress. Patient hemoglobin continues to be closely monitored. Patient pending LTAC placement. We continue to monitor patient closely. PHYSICAL EXAM EYES: Anicteric. Pupils equal and reactive. HENT: No oral thrush seen, moist Oral mucosa. NECK: Supple, no JVD or thyromegaly. LUNGS: Good air entry. No rales, no rhonchi. CARDIOVASCULAR: S1, S2 regular. No murmur heard. ABDOMEN: Soft, non tender, bowel sounds present, no organomegaly. CENTRAL NERVOUS SYSTEM: Awake, alert, oriented x 3. SKIN: No rashes, no swelling. LYMPHATICS: No peripheral lymphadenopathy MUSCULOSKELETAL: No joint swelling, erythema or tenderness. EXTREMITIES: Dry dressing to left lower extremity. Left TMA. History of right BKA BACK: No deformity, no pressure ulcer. GENITOURINARY: No dysuria or hematuria. Vital Sign (Last 12 Hours) 09/15/24 09/15/24 09/15/24 09/15/24 04:09 08:02 08:45 08:50 Temp 97.9 97.2 97.2 Pulse 88 85 84 Resp 17 15 15 B/P (MAP) 104/64 105/67 113/73 Pulse Ox 100 98 97 100 O2 Delivery Room Air Room Air* Nonrebreathing Mask Nonrebreathing Mask O2 Flow Rate 0 10.0 10.0 FiO2 21 100 100 09/15/24 09/15/24 09/15/24 09/15/24 08:55 09:00 09:05 09:10 Temp 97.2 97.2 97.2 97.2 Pulse 85 87 85 84 Resp 16 15 15 15 B/P (MAP) 112/73 113/68 116/68 115/65 Pulse Ox 100 100 98 98 O2 Delivery Nonrebreathing Mask Room Air Room Air Room Air O2 Flow Rate 10.0 FiO2 100 21 21 21 09/15/24 09/15/24 09/15/24 09/15/24 09:15 09:20 09:25 09:30 Temp 97.2 97.2 97.2 97.9 Pulse 83 85 85 85 Resp 15 15 15 18 B/P (MAP) 112/64 114/67 111/65 105/66 Pulse Ox 98 98 98 97 O2 Delivery Room Air Room Air Room Air Room Air FiO2 21 21 21 09/15/24 09/15/24 09:30 09:35 Temp 97.2 97.2 Pulse 84 83 Resp 15 16 B/P (MAP) 114/66 117/65 Pulse Ox 98 98 O2 Delivery Room Air Room Air FiO2 LABS: Laboratory: Test 09/15/24 10:26 09/15/24 05:00 Range/Units Whole Blood Glucose 80 70-110 MG/DL White Blood Count 5.4 4.8-10.8 K/uL Red Blood Count 2.64 L 4.50-6.20 MIL/uL Hemoglobin 7.7 L 14.0-18.0 g/dL Hematocrit 23.3 L 42-54 % Mean Corpuscular Volume 88.3 79-99 fL Mean Corpuscular Hemoglobin 29.2 27.0-33.0 pg Mean Corpuscular Hemoglobin Concent 33.0 32.0-36.0 g/dL Red Cell Distribution Width 14.4 11.0-15.5 % Platelet Count 79 L 130-400 K/uL Mean Platelet Volume 10.2 7.5-10.5 fL Nucleated Red Blood Cells 0.0 0.0-0.19 % Sodium Level 137 136-145 mmol/L Potassium Level 3.6 3.5-5.1 mmol/L Chloride Level 105 101-111 mmol/L Carbon Dioxide Level 25 21-32 mmol/L Blood Urea Nitrogen 13 7-18 mg/dL Creatinine 1.0 0.5-1.3 mg/dL Glomerular Filtration Rate Calc 83 >90 mL/min Random Glucose 111 H 70-105 mg/dL Total Calcium 7.7 L 8.5-10.1 mg/dL Magnesium Level 1.70 L 1.80-2.40 mg/dL Total Bilirubin 0.4 0.2-1.0 mg/dL Aspartate Amino Transf (AST/SGOT) 14 10-37 U/L Alanine Aminotransferase (ALT/SGPT) 12 12-78 U/L Alkaline Phosphatase 62 50-136 U/L Total Protein 5.1 L 6.0-8.3 g/dL Albumin 1.8 L 3.5-5.0 g/dL ASSESSMENT: Left foot diabetic ulcer with polymicrobial infection, possible osteomyelitis, status post transmetatarsal amputation on 08/31/2024. Proteus mirabilis bacteremia. Urinary tract infection with ESBL, E coli and Proteus mirabilis. Leukocytosis, resolved. Peripheral Artery disease. Diabetes mellitus Chronic kidney disease. Anemia, requiring blood transfusion, s/p EGD with findings of chronic gastritis. Status post debridement to left TMA. PLAN: Continue linezolid IV. Continue Zosyn. Continue pain management. Continue antidiabetics. Continue wound care. Will need 4 weeks of IV antibiotics and Case management to arrange for LTAC placement. Peripheral angiogram was postponed until further notice. This case was reviewed and discussed with my supervising physician and the above assessment and plan was formulated and agreed upon. SHIRA [facility] Sep 15, 2024 15:22
--- NOTE | 2024-09-15 17:24 | CONS ---
REASON FOR CONSULTATION: Thrombocytopenia. CONSULT REQUESTED BY: Jj Correa MD HISTORY OF PRESENT ILLNESS: This is a 64-year-old male with several medical problems who came to the hospital due to a left foot wound that was not healing. 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 The patient has undergone surgery and he just came from debridement. He is receiving broad-spectrum antibiotics. At this time, he is feeling okay. The patient has developed thrombocytopenia and this is the reason why I have been consulted. PAST MEDICAL HISTORY: Diabetes, peripheral vascular disease, anemia. PAST SURGICAL HISTORY: Previous right below-knee amputation. SOCIAL HISTORY: The patient does not smoke or drink. ALLERGIES: No drug allergies. REVIEW OF SYSTEMS: CONSTITUTIONAL: The patient denies feeling weak or tired. No chills, no fever, no anorexia. GASTROINTESTINAL: No nausea, no vomiting, no diarrhea, no constipation. RESPIRATORY: No shortness of breath, no cough. CARDIOVASCULAR: No chest pain, no palpitations. ENDOCRINE: No polyuria, no polydipsia, no facial swelling, no weight gain. NEUROLOGIC: No paresthesia, no strokes, no seizures. HEMATOLOGY: No fatigue, no pallor, no facial plethora, no petechiae. MUSCULOSKELETAL: No bony pains or aches, no joint deformities, no joint stiffness, no back pain. PHYSICAL EXAMINATION: VITAL SIGNS: Temperature 97.2, heart rate 83, respiratory rate 16, blood pressure 117/65. GENERAL: The patient is in no acute distress. All examination is normal. LUNGS: Clear to auscultation bilaterally. HEART: Regular rate. No murmur. ABDOMEN: Bowel sounds positive. Soft, nontender. No masses. EXTREMITIES: Dressing covering the operative wound. No palpable lymph nodes. LABORATORY: White blood cells 5.4, hemoglobin 7.7, hematocrit 23.3, platelet count 79. IMPRESSION: * The patient came already with severe anemia, which is likely a combination of anemia of chronic disease and also anemia of renal failure. * The patient started developing thrombocytopenia around 09/10. The patient admitted with developed thrombocytopenia during the hospitalization. By far the most common causes are drug-induced thrombocytopenia and infection. The infection seems to be under control. Due to that, I suspect the patient has drug-induced thrombocytopenia and the patient started Zosyn exactly on that day on 07/14. This is always a guess but should be an educated guess and I suspect the Zosyn is cause of thrombocytopenia and I recommend checking to see if we can stop that and start an alternative antibiotic. TID: [id number] RECEIPT: [id number]
[2024-09-15] MEDS: MAGNESIUM 2GM PREMIX 50ML 50 ML IV SCH (22:07)
[2024-09-16] VITALS (8 sets, daily range): BP systolic 96–127; BP diastolic 54–73; PULSE 86–93; RESP 16–20; TEMP 97.6–98.7; O2SAT 98
--- NOTE | 2024-09-16 01:09 | OP ---
DATE OF PROCEDURE: 09/15/2024 SURGEON: Surya Lim MD HAND CANDY MOLDER: None. PREOPERATIVE DIAGNOSIS: Gangrene left foot, status post transmetatarsal amputation x 15 days. POSTOPERATIVE DIAGNOSIS: Gangrene left foot, status post transmetatarsal amputation x 15 days. PROCEDURE: Medial cuneiformectomy, partial second metatarsectomy, complex layered primary wound closure, highly modified 7 cm surgical incision, bone biopsy of the navicular. ANESTHESIA: Local monitored anesthesia care, intravenous sedation. ESTIMATED BLOOD LOSS: Minimal. COMPLICATIONS: None. DRAINS: Quarter-inch Eugenia. MATERIALS: 2-0 vicryl andnylon suture, 1/4-inch Eugenia drain, Betadine adaptic, Betadine 4 x 4s, dry 4 x 4s, ABDs, Kerlix and Benny. PATHOLOGY: Bone pathology from the navicular to rule out osteomyelitis, left foot. The patient tolerated the anesthesia and procedure well, left the operating room in stable condition. INDICATIONS FOR SURGERY: The patient is a very pleasant 64-year-old diabetic male, status post transmetatarsal amputation of the left foot performed on 08/31/2024. Postoperatively, we developed necrosis to the distal and medial aspect of the plantar flap. He has been evaluated by the cardiology service and found to have peripheral vascular disease, has not yet received forestry laborer intervention for suspected peripheral vascular disease. At this point, it deemed necessary to take the patient to surgery for debridement of necrotic skin, soft tissue, and bone from the right foot and perform a complex layered primary wound closure with a highly modified surgical incision and performed a biopsy of the navicular. DESCRIPTION OF PROCEDURE: The patient was brought into the operating room and placed on the operating room table in the usual supine position. After induction of monitored anesthesia care, local block was given, 30 mL of 50:50 mixed 1% lidocaine plain 0.5% Marcaine plain. The patient was prepped, draped, and scrubbed in the usual sterile manner. Tourniquet was not inflated during the surgical procedure. A highly modified elliptical incision was made encompassing the area of dorsal medial necrosis of the plantar flap. The incision was deepened down through the skin and subcutaneous tissues. There was noted to be necrotic skin, subcutaneous tissues, tendon, musculature, and the medial cuneiform was found to be black and necrotic in appearance. Using a 15 scapel blade and a forcep and bone cutter and romguer, I performed a sharp excisional debridement of skin, subcutaneous tissues, tendon, muscle. I sharply excised the entire medial cuneiform. I removed it from the surgical field. I then performed a partial metatarsectomy with a bone cutter of the distal third of the second metatarsal. A bone biopsy was taken of the navicular for evaluation for osteomyelitis. Wound was copiously flushed with Pulsavac lavage. Hemostasis was obtained with use of the Bovie. A highly modified wound closure was then obtained of the highly modified surgical incision had to be created to ellipse the area of medial necrosis from the plantar flap. The 7-cm highly modified incision was coapted with seven 2-0 Vicryl horizontal mattress sutures. The skin was closed with five 2-0 nylon simple interrupted sutures, five 2-0 nylon horizontal mattress sutures and one running interlocking 7 cm 2-0 nylon stitch. Complex layered primary wound closure with a highly modified incision was successfully obtained and a quarter-inch Hawley drain was placed exiting median and lateral for drainage. A dressing of Betadine Adaptic, Betadine 4 x 4s, dry 4 x 4s, ABDs, Kerlix, and an Benny bandage was applied. The patient tolerated the anesthesia and procedure well and left the operating room in stable condition. TID: [id number] RECEIPT: [id number]
[2024-09-16 06:23] LABS: NUCLEATED RED BLOOD CELLS 0.0 % (0.0-0.19); PLATELET COUNT (AUTO) 61 K/uL (130-400); RED BLOOD CELL COUNT(AUTO) 2.43 MIL/uL (4.50-6.20); RED CELL DISTRIBUTION WIDTH 14.4 % (11.0-15.5); WHITE BLOOD COUNT (AUTO) 6.0 K/uL (4.8-10.8)
[2024-09-16 06:35] LABS: ASPARTATE AMINOTRANSFERASE 16.0 U/L (10-37); CREATININE 1.0 mg/dL (0.5-1.3); GLOMERULAR FILTR. RATE CALC 83.0 mL/min (>90); GLUCOSE,RANDOM 91.0 mg/dL (70-105); SODIUM SERUM 136.0 mmol/L (136-145); TOTAL PROTEIN, SERUM 4.9 g/dL (6.0-8.3); UREA NITROGEN, BLOOD 11.0 mg/dL (7-18)
--- NOTE | 2024-09-16 10:37 | PN ---
NEPHROLOGY PROGRESS NOTE Date/Time Patient Seen: Sep 16, 2024 SUBJECTIVE: This is a 63-year-old male with underlying history of poorly controlled type 2 diabetes mellitus, peripheral arterial disease, prior history of right [id number] amputation in 2020 due to right foot gangrene and necrotizing fasciitis. He presented to emergency room for evaluation of left foot wounds. S/p left TMA by Dr. Lim He continues to be followed by Cardiology, pending recommendations He was noted to have worsening elevated BUN/creatinine We have been consulted for renal failure. Renal function and electrolytes are stable Renal ultrasound showed normal kidneys with no hydronephrosis. He continues on antibiotics as per ID Blood cultures are positive for Proteus mirabilis Planned for debridement left foot as per Podiatry for tomorrow Cardiology has recommended HBO therapy, no peripheral angiogram is planned. S/p EGD that showed gastritis He has been started on IV iron and Epogen S/P debridement by Dr Lim pending PRBC transfusion He was seen in the medical floor, in no acute distress Prognosis remains guarded REVIEW OF SYSTEMS: GENERAL: Positive for left foot wound. NEUROLOGIC: Negative for any blurry vision, blind spots, double vision, facial asymmetry, dysphagia, dysarthria, hemiparesis, hemisensory deficits, vertigo, ataxia. HEENT: Negative for any head trauma, neck trauma, neck stiffness, photophobia, phonophobia, sinusitis, rhinitis. CARDIAC: Negative for any chest pain, dyspnea on exertion, paroxysmal nocturnal dyspnea, peripheral edema. PULMONARY: Negative for any shortness of breath, wheezing, COPD, or TB exposure. GASTROINTESTINAL: Negative for any abdominal pain, nausea, vomiting, bright red blood per rectum, melena. GENITOURINARY: Negative for any dysuria, hematuria, incontinence. INTEGUMENTARY: Negative for any rashes, cuts, insect bites. RHEUMATOLOGIC: Negative for any joint pains, photosensitive rashes, history of vasculitis or kidney problems. HEMATOLOGIC: Negative for any abnormal bruising, frequent infections or bleeding. Vital Signs (last 8hr) Date Time Temp Pulse Resp B/P (MAP) Pulse Ox O2 Delivery O2 Flow Rate FiO2 09/16/24 07:50 97.9 92 20 106/67 98 Room Air 09/16/24 04:26 97.5 92 18 96/56 94 Room Air PHYSICAL EXAM: GENERAL: Alert and oriented x 3. No acute distress. Well-nourished. EYES: EOMI. Anicteric. HENT: Moist mucous membranes. No scleral icterus. No cervical lymphadenopathy. LUNGS: Clear to auscultation bilaterally. No accessory muscle use. CARDIOVASCULAR: Regular rate and rhythm. No murmur. No JVD. ABDOMEN: Soft, non-tender and non-distended. No palpable masses. EXTREMITIES: No edema. Non-tender. Right BKA, left TMA SKIN: No rashes or lesions. Warm. NEUROLOGIC: No focal neurological deficits. CN II-XII grossly intact, but not individually tested. PSYCHIATRIC: Cooperative. Appropriate mood and affect. Current Medications Medications (Trade) Dose Ordered Sig/Nathaly Route Start Time Stop Time Status Last Admin Dose Admin Atorvastatin Calcium (LIPItor 20MG) 20 mg HS PO 09/11/24 21:00 10/11/24 20:59 09/15/24 22:07 20 MG Betamethasone Valerate (Betamethasone Valerate) 1 APPLICATION TID TP 09/01/24 14:00 10/01/24 13:59 Cancel Clopidogrel Bisulfate (plaVIX 75MG) 75 mg DAILY PO 09/02/24 09:00 10/02/24 08:59 09/16/24 08:22 75 MG Epoetin Aram-epbx (Retacrit) 10,000 unit QTH SQ 09/13/24 15:00 09/13/24 18:40 DC Epoetin Aram-epbx (Retacrit) 10,000 unit QTH SQ 09/13/24 19:00 10/13/24 18:59 09/13/24 20:43 10,000 UNIT Ferrous Sulfate (Ferrous Sulfate) 325 mg DAILY PO 09/11/24 11:00 10/11/24 10:59 09/16/24 08:22 325 MG Insulin Human Regular (humuLIN R 100 UNIT/ML 3ML) INSULIN SLIDING SCAL... ACHS SQ 08/30/24 21:00 09/29/24 20:59 09/07/24 19:56 2 UNIT Iron Sucrose (VenoFER) 200 mg DAILY IV 09/13/24 09:00 09/15/24 09:00 DC 09/15/24 10:00 200 MG Lactobacillus Rhamnosus ([facility] [employer]) 1 each BID PO 09/12/24 21:00 10/12/24 20:59 09/16/24 08:21 1 EACH Linezolid 300 ml @ 150 mls/hr Q12H IV 09/10/24 12:30 09/20/24 12:29 09/16/24 00:27 150 MLS/HR Linezolid 300 ml @ 150 mls/hr Q12H IV 08/30/24 18:00 08/30/24 17:37 DC Linezolid 300 ml @ 150 mls/hr Q12H IV 08/30/24 20:00 09/09/24 19:59 DC 09/09/24 08:50 150 MLS/HR Magnesium Sulfate 50 ml @ 0 mls/hr PROTOCOL IV 09/15/24 14:00 10/15/24 13:59 09/15/24 22:07 25 MLS/HR Metformin HCl (glucoPHAGE) 1,000 mg BIDMEALS PO 09/07/24 17:00 09/11/24 14:00 DC 09/11/24 09:25 1,000 MG Nystatin (NystOP 15 GM POWDER) 1 APPLICATION TID TP 09/12/24 21:00 10/12/24 20:59 09/16/24 08:22 1 APPL Nystatin (NystOP 15 GM POWDER) 1 APPL BID TP 09/12/24 21:00 09/12/24 16:48 DC Pharmacy Profile Note (Pharmacy Communication) 1 each ONCE MISC 08/30/24 17:30 09/01/24 07:16 DC 08/30/24 17:56 1 EACH Piperacillin Sod/ Tazobactam Sod (Zosyn 3.375gm+NS 50ml) 3.375 gm Q12H IVPB 08/30/24 21:00 08/31/24 06:42 DC 08/30/24 23:06 3.375 GM Piperacillin Sod/ Tazobactam Sod (Zosyn 3.375gm+NS 50ml) 3.375 gm Q8H IVPB 09/10/24 15:00 09/20/24 14:59 09/16/24 06:04 3.375 GM Piperacillin Sod/ Tazobactam Sod (Zosyn 3.375gm+NS 50ml) 3.375 gm Q8H IVPB 08/31/24 07:00 09/09/24 20:59 DC 09/09/24 15:28 3.375 GM Sodium Chloride 1,000 ml @ 75 mls/hr [id number] IV 08/30/24 20:00 09/01/24 12:55 DC 08/31/24 22:29 75 MLS/HR Thiamine HCl (Vitamin B-1) 100 mg Q24H IVP 08/30/24 18:00 09/01/24 16:47 DC 08/31/24 18:33 100 MG Thiamine HCl (Vitamin B-1) 100 mg Q24H IVP 09/01/24 20:00 10/01/24 19:59 09/15/24 22:11 100 MG Vitamin B Complex/ Vit C/Folic Acid (Nephrovite Tablet) 1 cap DAILY PO 09/01/24 09:00 10/01/24 08:59 09/16/24 08:21 1 [facility] LABORATORY: [ ] Hematology Labs: Test 09/16/24 06:11 Range/Units White Blood Count 6.0 4.8-10.8 K/uL Red Blood Count 2.43 L 4.50-6.20 MIL/uL Hemoglobin 7.0 *L 14.0-18.0 g/dL Hematocrit 21.0 *L 42-54 % Mean Corpuscular Volume 86.4 79-99 fL Mean Corpuscular Hemoglobin 28.8 27.0-33.0 pg Mean Corpuscular Hemoglobin Concent 33.3 32.0-36.0 g/dL Red Cell Distribution Width 14.4 11.0-15.5 % Platelet Count 61 L 130-400 K/uL Mean Platelet Volume 10.2 7.5-10.5 fL Nucleated Red Blood Cells 0.0 0.0-0.19 % Platelet Morphology Comment See comments Chemistry Labs: Test 09/16/24 10:13 09/16/24 06:11 Range/Units Whole Blood Glucose 83 70-110 MG/DL Sodium Level 136 136-145 mmol/L Potassium Level 4.0 3.5-5.1 mmol/L Chloride Level 105 101-111 mmol/L Carbon Dioxide Level 24 21-32 mmol/L Blood Urea Nitrogen 11 7-18 mg/dL Creatinine 1.0 0.5-1.3 mg/dL Glomerular Filtration Rate Calc 83 >90 mL/min Random Glucose 91 70-105 mg/dL Total Calcium 7.6 L 8.5-10.1 mg/dL Magnesium Level 2.10 1.80-2.40 mg/dL Total Bilirubin 0.4 0.2-1.0 mg/dL Aspartate Amino Transf (AST/SGOT) 16 10-37 U/L Alanine Aminotransferase (ALT/SGPT) 9 L 12-78 U/L Alkaline Phosphatase 68 50-136 U/L Total Protein 4.9 L 6.0-8.3 g/dL Albumin 1.7 L 3.5-5.0 g/dL DIAGNOSTICS / RADIOLOGY: PATIENT: CHADD MAGDALENO MR#: [id number] : 1960 SEX: M AGE: 64 LOCATION: 4BH ORDER 48 STATUS: ADM IN REPORT#: [id number] SERVICE 47 REASON: CONFIRM PICC LINE PLACEMENT ORDERING PHYSICIAN: BRAULIO BRIDGES MD PROCEDURE: CXR1VW - CHEST 1VW EXAM: CR Chest, 1 view CLINICAL HISTORY: Line placement. COMPARISON: CT chest dated 09/02/2024. FINDINGS: The right PICC line tip overlies the superior cavoatrial junction. The lungs show no infiltrates or other acute findings. No pleural effusion or pneumothorax. The cardiomediastinal silhouette is within normal limits. No acute osseous abnormality. IMPRESSION: The right PICC line tip overlies the superior cavoatrial junction. No acute cardiopulmonary process is evident. No adverse interval changes. /[place] DICTATED BY: GISEL CHACON Jr., MD DATE: 09/05/2424 ELECTRONICALLY SIGNED BY: GISEL CHACON Jr., MD DATE: 09/05/2424 PATIENT: CHADD MAGDALENO MR#: [id number] : 1960 SEX: M AGE: 64 LOCATION: 4BH ORDER 1020 STATUS: ADM IN REPORT#: [id number] SERVICE 1018 REASON: PAD; with LEFT lower extremity runoff ORDERING PHYSICIAN: KANIKA CROFT PROCEDURE: CTA ABDAOR - CT ANGIO ABD AORTA W RUNOFF EXAM: CTA bilateral Lower Extremities with Intravenous Contrast. CLINICAL HISTORY: Amputation of the right lower limb. TECHNIQUE: Axial CTA images of the bilateral Lower Extremities performed with intravenous contrast in the arterial phase with coronal and sagittal reformatted images generated and reviewed. 3-D reformatted images generated on an independent workstation and also reviewed. CONTRAST: Yes. COMPARISON: None provided. FINDINGS: Aorta: Atherosclerosis in the aorta with multiple calcified and non-calcified plaques at the origin of coeiliac axis, superior mesenteric artery and in the aortic neves without any flow limiting stenosis. VASCULATURE: Common Femoral Artery: Mild circumferential wall thickening with small calcified and non-calcified plaques on both sides without any flow limiting stenosis. Superficial Femoral Artery: Circumferential wall thickening with calcified plaques causing focal areas of luminal narrowing by approximately 20-30% on both sides. There is a focal area of luminal narrowing by approximately 60-70% in the lower one-thirds of the right superficial femoral artery. Deep Femoral Artery: No acute finding. No occlusion, rupture, aneurysm or dissection. Popliteal and Calf Arteries: There is circumferential calcifications in the bilateral popliteal and anterior and posterior tibial arteries with complete occlusion of the right popliteal artery and the right anterior and posterior tibial arteries. The left popliteal artery shows no significant luminal compromise. There is attenuated contrast opacification in the upper and mid segments of left anterior tibial artery with occlusion distally. Soft tissues: Unremarkable. Bones: Status post right below the knee amputation. No acute osseous abnormality. IMPRESSION: 1. Atherosclerosis in the aorta and in arteries of bilateral lower limb with complete occlusion of the right popliteal and proximal right anterior and posterior tibial arteries. Status post right below the knee amputation. 2. High-grade stenosis in the proximal and mid left anterior tibial artery with occlusion distally. 3. No abdominal aortic aneurysm or dissection. /[place] DICTATED BY: PATRICIA LAWSON MD DATE: 09/04/24647 ELECTRONICALLY SIGNED BY: PATRICIA LAWSON MD DATE: 09/04/24647 PATIENT: CHADD MAGDALENO MR#: [id number] : 1960 SEX: M AGE: 64 LOCATION: 2D ORDER 1245 STATUS: ADM IN REPORT#: [id number] SERVICE 1227 REASON: cad,chf ORDERING PHYSICIAN: CHARIS OROSCO MD PROCEDURE: ECHO CMP - ECHO 2-D COMPLETE APPROVED REPORT EXAM: Two-dimensional and M-mode echocardiogram with Doppler and color Doppler. Study Details: Diabts M , PVD INDICATION ICD: CAD , chf 2D Dimensions RVDd 3.4 cm LVEF(%) 70.2 (>50%) LVED Vol(simp.) 86.7 mL IVSd 0.9 (0.7-1.1cm) FS(%) 40 % LVES Vol(simp.) 38.5 mL LVDd 4.6 (3.8-5.6cm) LA (2D) 2.8 (1.6-4.0cm) LVEF(%, simp.) 56 % PWd 0.8 (0.7-1.1cm) Ao Root(2D) 3.3 (2.0-3.7cm) LA ESV INDEX (4CH) 21.00 mL/m2 IVSs 1.1 cm LVOT diam 2.0 (1.8-2.4cm) LA ESV INDEX (2CH) 15.31 mL/m2 LVDs 2.8 (2.5-4.0cm) LA ESV INDEX (BP) 15.38 mL/m2 PWs 1.2 cm Deformation Strain Apical 4 16.8 % Apical 2 13.2 % Apical 3 15.0 % Global Strain 15.0 % M-Mode Dimensions EPSS 1.8 cm LA (MM) 3.4 (1.6-4.0cm) Ao Root(MM) 3.4 (2.0-3.7cm) Aortic Valve AoV Vmax 0.9 m/s Ao Peak GR 3.2 mmHg LVOT Vmax 0.8 m/s AoV VTI 0.2 m Ao Mean GR 1.7 mmHg LVOT VTI 0.15 m CAITLIN (VMAX) 3.04 cm2 CAITLIN (VTI) 3.1 cm2 Mitral Valve MV E Vmax 61.6 cm/s DECEL Time 244 ms MV A Vmax 95.3 cm/s E/A ratio 0.6 TDI E/E' Medial 10.5 E/E' Lateral 6.4 Medial E' Peak V 5.86 cm/s Lateral E' Peak V 9.56 cm/s Pulmonary Valve PV Vmax 0.9 m/s PV VTI 0.18 m PV Mean GR 2.0 mmHg PV Peak GR 3.5 mmHg Left Ventricle The left ventricle is normal size. There is normal LV segmental wall motion. There is normal left ventricular wall thickness. LVEF is 50-55%. Stage I diastolic dysfunction. Right Ventricle The right ventricle is normal size. The right ventricular systolic function is normal. Atria The left atrium size is normal. The interatrial septum is intact with no evidence for an atrial septal defect. The right atrium size is normal. Aortic Valve Aortic valve NCC leaflets mild calcified. Trace aortic regurgitation. There is no aortic valvular stenosis. Mitral Valve The mitral valve is mildly thickened. Mild posterior mitral annular calcification present. There is no evidence of significant mitral regurgitation. There is no mitral valve stenosis. Tricuspid Valve The tricuspid valve is normal in structure. There is no tricuspid valve regurgitation noted. Pulmonic Valve Pulmonic valve is not well visualized. There is trace pulmonic valvular regurgitation. Great Vessels The aortic root is normal in size. The ascending aorta is normal in size. IVC is not well visualized. Pericardium not visualized Conclusion LVEF is 50-55%. Stage I diastolic dysfunction. There is normal LV segmental wall motion. Aortic valve NCC leaflets mild calcified. Trace aortic regurgitation. The mitral valve is mildly thickened. Mild posterior mitral annular calcification present. DICTATED BY: CHARIS OROSCO MD DATE: 09/01/24 1114 ELECTRONICALLY SIGNED BY: CHARIS OROSCO MD DATE: 09/01/24 1417 PATIENT: CHADD MAGDALENO MR#: [id number] : 1960 SEX: M AGE: 63 LOCATION: EDHIP ORDER STATUS: ADM IN REPORT#: [id number] SERVICE 1735 REASON: rule out any significant lung infiltrates, sepsis, foot infection ORDERING PHYSICIAN: BRAULIO BRIDGES MD PROCEDURE: CXR1VW - CHEST 1VW EXAM: CR Chest, 1 View. CLINICAL HISTORY: rule out any significant lung infiltrates, sepsis, foot infection COMPARISON: 05/02/2017 FINDINGS: LUNGS: There is no mass, infiltrate, or acute pulmonary abnormality. PLEURAL SPACES: No pleural effusion or pneumothorax. MEDIASTINUM: Cardiac size and mediastinal contours within normal limits. BONES: No aggressive appearing osseous lesion seen. IMPRESSION: No acute cardiopulmonary pathology is evident. /[place] DICTATED BY: PATRICIA LAWSON MD DATE: 08/30/242003 REASON: acute renal failure, uncontrolled DM II ORDERING PHYSICIAN: BRAULIO BRIDGES MD PROCEDURE: RENAL - US RENAL SONOGRAM EXAMINATION: Renal ultrasound. COMPARISON: None provided. HISTORY: acute renal failure, uncontrolled DM II FINDINGS: The right kidney measures 9.9 cm and is normal in echotexture. The left kidney measures 9.2 cm and is normal in echotexture. There are no focal renal lesions. There are no renal stones. There is no hydronephrosis. There is mild debris noted in the urinary bladder. Cystitis should be excluded. IMPRESSION: Normal kidneys. No hydronephrosis Mild debris noted in the urinary bladder. Cystitis should be excluded. /[place] DICTATED BY: PATRICIA LAWSON MD DATE: 08/30/242022 PATIENT: CHADD MAGDALENO MR#: [id number] : 1960 SEX: M AGE: 63 LOCATION: ED[facility]IP ORDER 23 STATUS: ADM IN REPORT#: [id number] SERVICE 16 REASON: non healing left foot wound with necrotic toes, assess for severe PAD ORDERING PHYSICIAN: BRAULIO BRIDGES MD PROCEDURE: ART B LE - US ARTERIAL BILAT LOW EXT DUPL EXAMINATION: DUPLEX ULTRASOUND EXAMINATION OF THE BILATERAL LOWER EXTREMITY ARTERIES. CLINICAL HISTORY: Non-healing wound in the left, to assess for peripheral arterial disease. COMPARISON: Lower extremity arterial doppler dated 12/29/2020. FINDINGS: Peak systolic velocities within the right lower arteries are as follows: Common femoral artery: 56 cm/s. Superficial femoral artery: 55 cm/s at proximal, 71 cm/s at mid, and 50 cm/s at distal segments. Popliteal artery: 28 cm/s at proximal and 37 cm/s at distal segments. The right lower limb arteries demonstrate biphasic waveforms in all arteries. The below knee arteries are not assessed, post amputation status. Peak systolic velocities within the left lower arteries are as follows: Common femoral artery: 66 cm/s. Superficial femoral artery: 71 cm/s at proximal, 72 cm/s at mid, and 72 cm/s at distal segments. Popliteal artery: 56 cm/s at proximal and 55 cm/s at distal segments. Posterior tibial artery: 30 cm/s. Anterior tibial artery: 47 cm/s. Dorsalis pedis artery: 67 cm/s. The left lower limb arteries demonstrate biphasic waveforms in all arteries other than posterior tibial, anterior tibial, and dorsalis pedis arteries which demonstrate monophasic waveforms. There is intimal wall thickening in both lower limb arteries. IMPRESSION: Mild intimal wall thickening in both the lower limb arteries. Both lower limb arteries demonstrate biphasic waveforms in all arteries other than left posterior tibial, anterior tibial, and dorsalis pedis arteries which demonstrate monophasic waveforms. No flow limiting lesions. /[place] DICTATED BY: PATRICIA LAWSON MD DATE: 08/30/242034 PATIENT: CHADD MAGDALENO MR#: [id number] : 1960 SEX: M AGE: 63 LOCATION: ED[facility]IP ORDER 1501 STATUS: ADM IN REPORT#: [id number] SERVICE 1500 REASON: SEPSIS ORDERING PHYSICIAN: IVON UNDERWOOD MD PROCEDURE: FT 3VW LT - FOOT COMP 3+VWS LT EXAM: CR Left foot, 3 View. CLINICAL HISTORY: SEPSIS COMPARISON: Comparison: Radiograph dated September 21, 2016 Findings: AP, oblique, lateral views of the left foot are submitted. Interval amputation of the great toe from the distal metatarsal. There is edema and subcutaneous emphysema within the soft tissues overlying the first metatarsal. Presumed interval amputation of the second toe from the mid to distal second proximal phalanx and of the third toe from the distal interphalangeal joint. Clinical correlation is advised. There is suggestion of bone loss and cortical irregularities seen within the mid diaphyses of the 3rd and 4th proximal phalanxes. Findings may reflect osteomyelitis. Recommend contrast-enhanced MRI of the midfoot/forefoot for further evaluation. IMPRESSION: 1. Status post interval amputation of great toe, second toe, and third toe with soft tissue edema and subcutaneous emphysema overlying the first metatarsal. 2. Possible osteomyelitis of 3rd and 4th proximal phalanxes. Recommend MRI of the midfoot/forefoot for further evaluation. /[place] DICTATED BY: GISEL CHACON Jr., MD DATE: 08/30/24 895 ASSESSMENT: Acute renal failure Acute rhabdomyolysis Anemia Hyponatremia Sepsis UTI Bacteremia Gas/wet gangrene of the left foot with extensively necrotic toes and underlying acute osteo-myelitis of multiple toe Poorly controlled type 2 diabetes mellitus PAD S/p right BKA Noncompliance Hyperlipidemia Positive fecal occult blood test s/p EGD Thrombocytopenia PLAN: Labs, diagnostic, radiologic exams reviewed and interpreted by myself and supervising physician. We have reviewed external records in detail 1.5 Fluid restriction is advised Require close monitoring of renal function and electrolytes Order CBC, CMP, and electrolytes in am Continue with antibiotics as per ID BiPAP as necessary, for respiratory distress Monitor blood pressure adjust medication doses as needed Avoid hypotensive episodes May use Dilaudid 0.5 mg IV every 6 hours as needed for severe pain Monitor blood sugars Strict intake, output, and daily weight should be monitored Please renally adjust medications Avoid nephrotoxic and nonsteroidal drugs Avoid contrast if possible Will continue to monitor renal function, anemia, electrolytes Treatment plan discussed with patient Questions were answered We have discussed with the other team physicians in detail about the care plan We will continue to monitor the patient closely ATTESTATION BY PHYSICIAN I have seen and examined the patient. I reviewed the documentation, medical decision making, and treatment plan as noted by the mid-level provider above. I agree with the findings and plan of care. EMMIE KRAMER MD, [facility] Sep 16, 2024 10:37
--- NOTE | 2024-09-16 12:05 | PN ---
[facility] PROGRESS NOTE Date of Service: Sep 16, 2024 Time of Service: 12:02 SUBJECTIVE: The patient is a 63-year-old male with a significant medical history of poorly controlled type 2 diabetes mellitus, peripheral arterial disease, and a prior right [id number] amputation in 2020 due to right foot gangrene and necrotizing fasciitis. He presented to the emergency room on August 30, 2024, with worsening chronic wounds on the toes of his left foot, which had become increasingly necrotic and foul-smelling over the past several weeks. He also reported experiencing fever and chills. On admission, the patient was febrile with a maximum temperature of 100.0F, tachycardic with a heart rate of 102 bpm, and hypotensive with a blood pressure of 81/50 mmHg. Laboratory tests revealed leukocytosis with a WBC count of 21,400, anemia with a hemoglobin level of 10.3, and elevated creatinine at 2.0, indicating possible renal impairment. Blood cultures were positive for Gram- negative rods, later identified as Proteus mirabilis, and urine cultures showed growth of E. coli and Proteus mirabilis. The patient was admitted for management of wet gangrene of the left foot with suspected chronic osteomyelitis. He underwent a transmetatarsal amputation of the left foot on August 31, 2024, performed by Dr. Lim, which he tolerated well. Postoperatively, he was treated with broad-spectrum IV antibiotics, including Zosyn and linezolid, and received consultations from Podiatry, Infectious Disease, and Nephrology. Despite initial improvement, his white blood cell count remained elevated, and he required ongoing wound care and monitoring. Throughout his hospital stay, the patient remained stable, with vital signs improving and leukocytosis gradually resolving. He was alert, oriented, and reported adequate pain control. Case management coordinated his discharge to a long-term acute care facility ([facility]) for continued medical care, pending insurance approval. But apparently he got accepted to [facility]. Upon evaluation and chart review, it was noted that the principal electrical engineer has recommended a cardiology consultation to assess the patient's circulation, given his peripheral vascular disease. Dr. De Paz has suggested a transcutaneous oximetry (TCOM) and a possible angiogram to be performed on to further evaluate and manage his vascular status. The patient remains stable and continues to receive appropriate wound care and medical management. Patient was noted with positive stool occult blood, he has been having downtrending H and H. GI recommended EGD today, unfortunately his hgb is at 6.7 today. He denies sob, dizziness at this time. We will close monitor, for the meantime we will repeat H/H now. Type and screen patient. If hgb is at 7 or less than 7, we will transfuse 1 unit PRBC. We will inform GI team. 09/14 patient remains admitted to the medical floor, BP 111/69, afebrile, saturating 100% on 3 L nasal cannula, receive 1 unit of PRBC yesterday, hemoglobin 7.8, hematocrit 23.8, WBC 6.1, platelet count of 95, sodium 136, p otassium 3.8, BUN of 21, creatinine 1.1, magnesium 1.8. Currently the patient NPO, scheduled for EGD today, status post transfusion of 1 unit of PRBC yesterday, hemoglobin improved to 7.8, continue to follow CBC in a.m. transfuse as needed, continue to follow GI input and recommendation, continue to follow Cardiology input and recommendations. Podiatry input noted and appreciated, plan to take the patient to the operating room for debridement of number getting necrosis to the plantar flap of the left foot. At the time of my visit patient comfortably in bed, alert oriented x3, case discussed with the RN, no acute events overnight. The patient denied dizziness, no headache, no chest pain, shortness shortness for breath, no nausea, no vomiting. He feels hungry. 09/15 patient remains admitted to the medical floor, hemodynamically stable, BP 170/65, rest of the vital signs are unremarkable. Noted to have slight drop in hemoglobin and hematocrit, today 7.7/23.3. Magnesium level 1.7. Patient is status post transfusion of 1 unit of PRBC 09/13/2024, continue to monitor CBC and transfuse as needed. EGD done 09/14/2024, no acute findings. Continue to follow GI input and recommendations in terms of colonoscopy. Cardiology input noted and appreciated, recommended proceeding with colonoscopy to complete the GI workup.The TCOM analysis identified that the patient should heal from the TMA site with HBO therapy. As a result, we recommend that the patient be referred for HBO therapy. No further cardiac interventions, however if anemia and thrombocytopenia stabilizes and the patient fails to heal despite HBO therapy, can consider peripheral angiography as an outpatient. The meantime the patient to continue Plavix 75 mg p.o. daily and atorvastatin 20 mg p.o. q.h.s.. Continue the patient on broad-spectrum IV antibiotics. Podiatry contemplating debridement of necrosis plantar flap left foot. Patient with thrombocytopenia, we will request Hematology consultation. At the time of my visit the patient is awake, alert and oriented, following commands, case discussed with the RN, no acute events overnight. Patient getting good pain control with current medical management, getting IV antibiotics at the time of my visit, no family members at bedside. 09/16 remains admitted to the medical floor, hemodynamically stable, afebrile, saturating normal on room air. Drop in hemoglobin today again at 7.0, hematocrit 21.0. Patient is status post transfusion of 1 unit of PRBC 09/13/2024, drop again noted in hemoglobin today, we will transfuse additional unit of PRBC. EGD done 09/14/2024, no acute findings. Continue to follow GI input and recommendations in terms of colonoscopy. Cardiology input noted and appreciated, recommended proceeding with colonoscopy to complete the GI workup.The TCOM analysis identified that the patient should heal from the TMA site with HBO therapy. As a result, we recommend that the patient be referred for HBO therapy. No further cardiac interventions, however if anemia and thrombocytopenia stabilizes and the patient fails to heal despite HBO therapy, can consider peripheral angiography as an outpatient. The meantime the patient to continue Plavix 75 mg p.o. daily and atorvastatin 20 mg p.o. q.h.s.. Continue the patient on broad-spectrum IV antibiotics. Patient is status post Medial cuneiformectomy, partial second metatarsectomy, complex layered primary wound closure, highly modified 7 cm surgical incision, bone biopsy of the navicular by principal electrical engineer 09/15/2024, tolerated the procedure well, continue to follow podiatry input and recommendation. My visit patient comfortably in bed, alert oriented x3, no acute events overnight, no chest pain, shortness shortness for breath, no nausea, no vomiting, case discussed with the RN. REVIEW OF SYSTEMS CONSTITUTIONAL: fevers, chills, malaise, poor oral intake NEUROLOGICAL: Denies headache, amaurosis fugax, motor weakness, sensory deficit, vertigo/spinning sensation, gait abnormalities, or tremors. ENT: No hearing loss, otalgia, otorrhea, rhinitis, rhinorrhea, hoarseness, or sore throat. CARDIOVASCULAR: Denies any exertional angina, dyspnea on exertion, orthopnea, paroxysmal nocturnal dyspnea, palpitations, life-threatening arrhythmias, claudication. PULMONARY: Denies any shortness of breath, cough, phlegm/sputum, hemoptysis, pleuritic chest pain. SLEEP: Denies morning headaches, daytime somnolence or napping. Denies difficulty falling asleep, staying asleep, waking from sleep. Denies knowledge of snoring. GASTROINTESTINAL: Denies any type of dysphagia to either liquids or solids. Denies nausea, vomiting, pyrosis, early satiety, abdominal pain, diarrhea, constipation, or changes in stool consistency or caliber. Denies coffee-ground emesis, hematemesis, hematochezia, or melanotic stools. GENITOURINARY: Denies frequency, urgency, nocturia, hematuria or incontinence (Storage/Irritative symptoms.) Low urinary stream, straining to void, urinary intermittency or hesitancy, splitting of the voiding stream, terminal dribbling. ENDOCRINOLOGIC: Hx of type 2 Diabetes mellitus HEMATOLOGIC: Denies thrombophilia/previous clots, or coagulopathy/bleeding disorders. ONCOLOGIC: Denies personal history of malignancy. DERMATOLOGIC: foul smelling necrotic toes of the left foot with non healing wounds PSYCHIATRIC: Denies any suicidal or homicidal ideation. Denies hallucinations. PHYSICAL EXAM GENERAL APPEARANCE: The patient is awake, alert, and oriented, in no acute cardiopulmonary distress. NEUROLOGICAL: Cranial nerves II-XII grossly intact. Motor is 5/5 in bilateral upper and lower extremities proximal to distal. No sensory deficits. HEENT: Face is symmetric. Pupils are equal and reactive. Extraocular movements are intact. NECK: Supple. No JVD. No thyromegaly. No submental, submandibular, pre- /postauricular, occipital or supraclavicular lymphadenopathy. CHEST: Normal chest expansion. No Telemetry. LUNGS: Absence of any rales, rhonchi or any wheezing. CARDIOVASCULAR: Regular. S1 and S2 normal. No appreciable rubs, murmurs or gallops. ABDOMEN: Soft, nontender, and nondistended. There is no rebound, voluntary guarding, or rigidity. : Deferred. No Sandhu. EXTREMITIES: Left foot noted to have extremely foul-smelling wound with necrotic toes noted from 2nd two fifth digit, area of erythema and surrounding cellulitic changes noted Vital Signs (last 8hr) Date Time Temp Pulse Resp B/P (MAP) Pulse Ox O2 Delivery O2 Flow Rate FiO2 09/16/24 11:07 98.2 92 20 120/54 99 Room Air 09/16/24 07:50 97.9 92 20 106/67 98 Room Air 09/16/24 04:26 97.5 92 18 96/56 94 Room Air LABS: Laboratory: Test 09/16/24 10:13 09/16/24 06:11 Range/Units Whole Blood Glucose 83 70-110 MG/DL White Blood Count 6.0 4.8-10.8 K/uL Red Blood Count 2.43 L 4.50-6.20 MIL/uL Hemoglobin 7.0 *L 14.0-18.0 g/dL Hematocrit 21.0 *L 42-54 % Mean Corpuscular Volume 86.4 79-99 fL Mean Corpuscular Hemoglobin 28.8 27.0-33.0 pg Mean Corpuscular Hemoglobin Concent 33.3 32.0-36.0 g/dL Red Cell Distribution Width 14.4 11.0-15.5 % Platelet Count 61 L 130-400 K/uL Mean Platelet Volume 10.2 7.5-10.5 fL Nucleated Red Blood Cells 0.0 0.0-0.19 % Platelet Morphology Comment See comments Sodium Level 136 136-145 mmol/L Potassium Level 4.0 3.5-5.1 mmol/L Chloride Level 105 101-111 mmol/L Carbon Dioxide Level 24 21-32 mmol/L Blood Urea Nitrogen 11 7-18 mg/dL Creatinine 1.0 0.5-1.3 mg/dL Glomerular Filtration Rate Calc 83 >90 mL/min Random Glucose 91 70-105 mg/dL Total Calcium 7.6 L 8.5-10.1 mg/dL Magnesium Level 2.10 1.80-2.40 mg/dL Total Bilirubin 0.4 0.2-1.0 mg/dL Aspartate Amino Transf (AST/SGOT) 16 10-37 U/L Alanine Aminotransferase (ALT/SGPT) 9 L 12-78 U/L Alkaline Phosphatase 68 50-136 U/L Total Protein 4.9 L 6.0-8.3 g/dL Albumin 1.7 L 3.5-5.0 g/dL Current Medications Medications (Trade) Dose Ordered Sig/Nathaly Route PRN Reason Start Time Stop Time Status Last Admin Dose Admin Acetaminophen (TYLenol 325MG TAB) 650 mg Q6H PRN PO MILD PAIN (1-3) 08/30/24 17:30 09/29/24 17:29 Atorvastatin Calcium (LIPItor 20MG) 20 mg HS PO 09/11/24 21:00 10/11/24 20:59 09/15/24 22:07 20 MG Betamethasone Valerate (Betamethasone Valerate) 1 APPLICATION TID TP 09/01/24 14:00 10/01/24 13:59 Cancel Clopidogrel Bisulfate (plaVIX 75MG) 75 mg DAILY PO 09/02/24 09:00 10/02/24 08:59 09/16/24 08:22 75 MG Dextrose (D50w) 50 ml AD PRN IV HYPOGLYCEMIA PROTOCOL 08/30/24 18:00 09/29/24 17:59 Epoetin Aram-epbx (Retacrit) 10,000 unit QTH SQ 09/13/24 15:00 09/13/24 18:40 DC Epoetin Aram-epbx (Retacrit) 10,000 unit QTH SQ 09/13/24 19:00 10/13/24 18:59 09/13/24 20:43 10,000 UNIT Ferrous Sulfate (Ferrous Sulfate) 325 mg DAILY PO 09/11/24 11:00 10/11/24 10:59 09/16/24 08:22 325 MG Glucagon (Glucagon 1mg Kit) 1 mg AD PRN IM HYPOGLYCEMIA PROTOCOL 08/30/24 18:00 09/29/24 17:59 Hydromorphone HCl (DiLAUDid 0.5MG INJ) 0.2 mg Q6H PRN IVP SEVERE PAIN (7-10) 08/30/24 17:30 09/04/24 17:29 DC Insulin Human Regular (humuLIN R 100 UNIT/ML 3ML) INSULIN SLIDING SCAL... ACHS SQ 08/30/24 21:00 09/29/24 20:59 09/07/24 19:56 2 UNIT Iron Sucrose (VenoFER) 200 mg DAILY IV 09/13/24 09:00 09/15/24 09:00 DC 09/15/24 10:00 200 MG Lactobacillus Rhamnosus ([facility] [employer]) 1 each BID PO 09/12/24 21:00 10/12/24 20:59 09/16/24 08:21 1 EACH Linezolid 300 ml @ 150 mls/hr Q12H IV 09/10/24 12:30 09/20/24 12:29 09/16/24 00:27 150 MLS/HR Linezolid 300 ml @ 150 mls/hr Q12H IV 08/30/24 18:00 08/30/24 17:37 DC Linezolid 300 ml @ 150 mls/hr Q12H IV 08/30/24 20:00 09/09/24 19:59 DC 09/09/24 08:50 150 MLS/HR Magnesium Sulfate 50 ml @ 0 mls/hr PROTOCOL IV 09/15/24 14:00 10/15/24 13:59 09/15/24 22:07 25 MLS/HR Magnesium Sulfate 50 ml @ 0 mls/hr PROTOCOL PRN IV MAGNESIUM PROTOCOL 09/15/24 13:30 09/15/24 13:44 DC Metformin HCl (glucoPHAGE) 1,000 mg BIDMEALS PO 09/07/24 17:00 09/11/24 14:00 DC 09/11/24 09:25 1,000 MG Nystatin (NystOP 15 GM POWDER) 1 APPLICATION TID TP 09/12/24 21:00 10/12/24 20:59 09/16/24 08:22 1 APPL Nystatin (NystOP 15 GM POWDER) 1 APPL BID TP 09/12/24 21:00 09/12/24 16:48 DC Ondansetron HCl (zoFRAN 4MG INJ) 4 mg Q6H PRN IVP NAUSEA/VOMITING 08/30/24 17:30 09/29/24 17:29 Pharmacy Profile Note (Pharmacy Communication) 1 each ONCE MISC 08/30/24 17:30 09/01/24 07:16 DC 08/30/24 17:56 1 EACH Piperacillin Sod/ Tazobactam Sod (Zosyn 3.375gm+NS 50ml) 3.375 gm Q12H IVPB 08/30/24 21:00 08/31/24 06:42 DC 08/30/24 23:06 3.375 GM Piperacillin Sod/ Tazobactam Sod (Zosyn 3.375gm+NS 50ml) 3.375 gm Q8H IVPB 09/10/24 15:00 09/20/24 14:59 09/16/24 06:04 3.375 GM Piperacillin Sod/ Tazobactam Sod (Zosyn 3.375gm+NS 50ml) 3.375 gm Q8H IVPB 08/31/24 07:00 09/09/24 20:59 DC 09/09/24 15:28 3.375 GM Potassium Chloride 100 ml @ 100 mls/hr AD PRN IV POTASSIUM PROTOCOL 09/06/24 08:00 10/06/24 07:59 Potassium Chloride (K-Dur/Klor-Con 20meq) 20 meq AD PRN PO POTASSIUM PROTOCOL 09/06/24 08:00 10/06/24 07:59 09/16/24 00:28 20 MEQ Potassium Chloride (KCl 10% Elixir 20meq/15ml) 20 meq AD PRN PO POTASSIUM PROTOCOL 09/06/24 08:00 10/06/24 07:59 Sodium Chloride 1,000 ml @ 75 mls/hr [id number] IV 08/30/24 20:00 09/01/24 12:55 DC 08/31/24 22:29 75 MLS/HR Thiamine HCl (Vitamin B-1) 100 mg Q24H IVP 08/30/24 18:00 09/01/24 16:47 DC 08/31/24 18:33 100 MG Thiamine HCl (Vitamin B-1) 100 mg Q24H IVP 09/01/24 20:00 10/01/24 19:59 09/15/24 22:11 100 MG Vitamin B Complex/ Vit C/Folic Acid (Nephrovite Tablet) 1 cap DAILY PO 09/01/24 09:00 10/01/24 08:59 09/16/24 08:21 1 CAP DIAGNOSTICS / RADIOLOGY: [ ] ASSESSMENT: Blood loss anemia, hgb at 6.7 Anemia, positive fecal occult blood Gas/wet gangrene of the left foot with extensively necrotic toes and underlying acute osteo-myelitis of multiple toes, POA Sepsis 2/2 complicated soft tissue infection of the left foot with underlying osteomyelitis)/Gram-negative bacteremia, POA Status post transmetatarsal amputation left foot 08/31/2024 status post Medial cuneiformectomy, partial second metatarsectomy, complex layered primary wound closure, highly modified 7 cm surgical incision, bone biopsy of the navicular by principal electrical engineer 09/15/2024 Gram-negative bacteremia secondary secondary to Proteus mirabilis POA Urinary tract infection, secondary to E coli and Proteus mirabilis, POA Left foot wound culture positive for Proteus mirabilis Poorly controlled type 2 diabetes mellitus, POA Acute renal failure, POA Acute rhabdomyolysis, POA Anemia, POA Significant leukocytosis secondary to underlying septicemia, POA Moderate hyponatremia, POA Hx of right BKA, POA PLAN: Patient is status post transfusion of 1 unit of PRBC 09/13/2024, drop again noted in hemoglobin today, we will transfuse additional unit of PRBC. EGD done 09/14/2024, no acute findings. Continue to follow GI input and recommendations in terms of colonoscopy. Cardiology input noted and appreciated, recommended pr oceeding with colonoscopy to complete the GI workup.The TCOM analysis identified that the patient should heal from the TMA site with HBO therapy. As a result, we recommend that the patient be referred for HBO therapy. No further cardiac interventions, however if anemia and thrombocytopenia stabilizes and the patient fails to heal despite HBO therapy, can consider peripheral angiography as an outpatient. The meantime the patient to continue Plavix 75 mg p.o. daily and atorvastatin 20 mg p.o. q.h.s.. Continue the patient on broad-spectrum IV antibiotics. Patient is status post Medial cuneiformectomy, partial second metatarsectomy, complex layered primary wound closure, highly modified 7 cm surgical incision, bone biopsy of the navicular by principal electrical engineer 09/15/2024, tolerated the procedure well, continue to follow podiatry input and recommendation. NEURO: Minimize central acting medications as possible. Fall Precautions. Well lighted room through the day and minimize interruptions through the night to prevent acute delirium. PULMONARY: Supplemental 02 as needed BiPAP as necessary, for respiratory distress Titrate Fio2 to keep Spo2 > or = 90% DuoNebs and CPT as needed IS hourly while awake for pulmonary hygiene prn Out of bed to chair as tolerated Maintain aspiration precautions at all times CARDIOVASCULAR: Follow hemodynamics. Vital signs per facility protocol GI & NUTRITION: Continue nutritional support Aspirations precautions Prokinetic agents and laxatives as needed KIDNEYS & ELECTROLYTES: Strict monitoring of intake and output Daily weights Avoid nephrotoxic agents Monitor electrolytes and replace as needed Goal urine output of 30mL/hr or 0.5mL/kg/hr Medications to be dosed according to renal function. Avoid contrast if possible ENDOCRINE: Maintain blood glucose between 100-180 at all times. Insulin sliding scale for blood glucose management Hypoglycemia and hyperglycemia protocol in place INFECTIOUS DISEASE: Trend temperature, WBC and procalcitonin level Follow cultures, deescalate antibiotics as soon as possible. Panculture if new onset fever HEMATOLOGY & COAGULATION: Monitor H&H. Keep Hgb > 7 Transfuse 1 unit of PRBC for Hgb < 7 Transfuse 1 pack of platelets of platelets < 20, 000 Watch for any signs and symptoms of bleeding SKIN: Pressure ulcer prevention per facility protocol Specialty mattress as needed ORTHO/REHAB Continue PT/OT PRN: MEDICATIONS Tylenol 650 mg po every 4 hrs for fever zofran 4 mg IV every 6 hrs for n/v Hydralazine 5 mg IV every 4 hrs systolic pressure > 160 bowel regiment: lactulose 20 gm PO BID PRN constipation Supportive measures: Continue GI and DVT prophylaxis Disposition: Pending improvement in clinical condition All questions answered time spent: > 35 min JERO RICHARDS MD Sep 16, 2024 12:05
--- NOTE | 2024-09-16 13:35 | NUR ---
PT received one unit PRBC without complication Vitals WNL. PT tolerated well. Start 1118 Stop 1330.
--- NOTE | 2024-09-16 18:38 | PN ---
SUBJECTIVE: The patient is a very pleasant 64-year-old diabetic, Latin-[place] male who is followed up for a diabetic ulcer status post transmetatarsal amputation on the left. He went to the operating room yesterday and had debridement of skin, subcutaneous tissues, tendon, muscle, and bone with resection of the medial cuneiform and portion of the second metatarsal and a biopsy of the navicular. The patient is currently afebrile 98.2, blood pressure 120/54, pulse 92, respirations 20. The patient currently has an H and H of 7 and 21, white count 6.0. He is currently receiving magnesium sulfate, Epogen marina, atorvastatin, ferrous sulfate, Zosyn and Zyvox. REVIEW OF SYSTEMS: CONSTITUTIONAL: Having no chills, no fevers, no night sweats. No nausea or vomiting. No diarrhea. HEENT: No problems with eyes, ears, nose, or throat. CARDIOVASCULAR: Having no current chest pain. He has peripheral vascular disease. He is being followed by Cardiology Service. GENITOURINARY: He has a BUN and creatinine level of 11 and 1.0. PSYCHIATRIC: He has denied any depression. MUSCULOSKELETAL: He has a [id number] amputation on the right. He has a Chopart's level of amputation on the left. INTEGUMENTARY: Incision site well coapted, drain in place. ASSESSMENT: Transmetatarsal amputation on the left, status post revisional debridement of the transmetatarsal amputation with removal of the medial cuneiform, debridement of the second metatarsal and biopsy of the navicular with complex layered primary wound closure of the surgical site. PLAN: We will continue with Betadine dressings, offloading measures, awaiting the results of his bone pathologies. We will continue with the antibiotics, currently the IV Zosyn and Zyvox. Awaiting evaluation of his circulation status by the Cardiology Service. Continue to follow the patient closely in-house. TID: [id number] RECEIPT: [id number]
--- NOTE | 2024-09-17 01:40 | PN ---
INFECTIOUS DISEASE FOLLOWUP NOTE DATE OF SERVICE: 09/16/2024 SUBJECTIVE: The patient is seen and examined at bedside today. The patient has also no fever, no chills. No sore throat, no rhinorrhea. ____. No depression. No suicidal ideation. No bleeding tendency. ____. PHYSICAL EXAMINATION: VITAL SIGNS: Temperature 98.8. EYES: No icterus. Pupils are equal and reactive. HENT: No oral thrush seen. Moist oral mucosa. NECK: Supple. No JVD or thyromegaly. LUNGS: Good air entry. No rales. No rhonchi. CARDIOVASCULAR: S1 and S2 regular. No murmur heard. ABDOMEN: Full, soft. Bowel sounds present. CENTRAL NERVOUS SYSTEM: Awake, alert, oriented x 3. No focal deficits. SKIN: No rashes, no itchiness. LYMPHATIC: Left inguinal lymphadenopathy. BACK: No deformity. No pressure ulcer. EXTREMITIES: Status post left foot transmetatarsal amputation. ASSESSMENT: A 64-year-old male with multiple problems, which include: * Left foot abscess osteomyelitis, status post transmetatarsal amputation. * Anemia, status post transfusion. * Gastrointestinal bleed. * Peripheral vascular disease. * Diabetes mellitus. * Malnutrition. * Debility. PLAN: * Continue nutritional support. * Continue GI prophylaxis. * Continue wound care. * Continue antibiotics. * Continue Protonix. * Monitor electrolytes. * The patient will be followed up closely. TID: [id number] RECEIPT: [id number]
[2024-09-17 03:50] VITALS: BP 110/67; PULSE 89; RESP 18; TEMP 97.9
[2024-09-17 05:47] LABS: IMMATURE GRANULOCYTE ABSOLUTE 0.03 K/uL (0-1); NUCLEATED RED BLOOD CELLS 0.0 % (0.0-0.19); PLATELET COUNT (AUTO) 51 K/uL (130-400); RED BLOOD CELL COUNT(AUTO) 3.06 MIL/uL (4.50-6.20); RED CELL DISTRIBUTION WIDTH 14.3 % (11.0-15.5); WHITE BLOOD COUNT (AUTO) 5.2 K/uL (4.8-10.8)
[2024-09-17 06:14] LABS: ASPARTATE AMINOTRANSFERASE 15.0 U/L (10-37); CREATININE 1.0 mg/dL (0.5-1.3); GLOMERULAR FILTR. RATE CALC 83.0 mL/min (>90); GLUCOSE,RANDOM 99.0 mg/dL (70-105); SODIUM SERUM 135.0 mmol/L (136-145); TOTAL PROTEIN, SERUM 5.0 g/dL (6.0-8.3); UREA NITROGEN, BLOOD 10.0 mg/dL (7-18)
--- NOTE | 2024-09-17 06:47 | PN ---
SUBJECTIVE: The patient is a 64-year-old diabetic [place] male who is followed up for left foot gangrene, left foot peripheral vascular disease status post transmetatarsal amputation and revisional surgery due to demarcated necrosis of the flap. White count 5.2, H and H are 8.8 and 27.0. The patient is pending evaluation of his circulation status on the left side by the Cardiology Service. He has had cultures that have grown Proteus mirabilis and Staph aureus. Blood culture is no growth x 5 days. Currently receiving IV Zosyn and Zyvox with a BUN and creatinine level of 10 and 1.0. He has the platelets trending down at 51,000. The patient is being followed by Dr. Stein of Infectious Disease. REVIEW OF SYSTEMS: CONSTITUTIONAL: No chills. No fevers. No night sweats. No nausea or vomiting. No diarrhea. HEENT: No problems with eyes, ears, nose, or throat. CARDIOVASCULAR: He has no current chest pain. He has peripheral vascular disease and is being followed by Cardiology Service. GENITOURINARY: BUN and creatinine are within normal limits. PSYCHIATRIC: Denied any depression. MUSCULOSKELETAL: [id number] amputation on the right. He has a transmetatarsal amputation type level on the left. INTEGUMENTARY: He has an incision site that is well coapted and drain in place. ASSESSMENT: Status post revision of the transmetatarsal amputation on the left, removal of the medial cuneiform, debridement of the second metatarsal, biopsy of the navicular, complex layered primary wound closure, highly modified surgical incision. PLAN: Continue Betadine dressings and offloading measuring. Awaiting results of the bone pathology. Continue with antibiotics, currently the Zyvox and the Zosyn. Awaiting evaluation of his circulation status by the Cardiology service. Follow his platelets which are trending down and are now currently at 51,000. Continue to follow the patient closely while in-house. TID: [id number] RECEIPT: [id number]
[2024-09-17 08:00] VITALS: O2SAT 98
[2024-09-17 08:08] VITALS: BP 124/68; PULSE 90; RESP 18; TEMP 97.8
--- NOTE | 2024-09-17 09:00 | NUR ---
HELD PLAVIX. PATIENT HAS LOW PLATELETS. PER MD WE WILL HOLD PLAVIX AND CONSULT HEMATOLOGY
[2024-09-17 11:24] VITALS: BP 90/58; PULSE 94; RESP 20; TEMP 98.3
--- NOTE | 2024-09-17 12:24 | PN ---
NEPHROLOGY PROGRESS NOTE Date/Time Patient Seen: Sep 17, 2024 SUBJECTIVE: This is a 63-year-old male with underlying history of poorly controlled type 2 diabetes mellitus, peripheral arterial disease, prior history of right [id number]-[id number] amputation in 2020 due to right foot gangrene and necrotizing fasciitis. He presented to emergency room for evaluation of left foot wounds. S/p left TMA by Dr. Lim He continues to be followed by Cardiology, pending recommendations He was noted to have worsening elevated BUN/creatinine We have been consulted for renal failure. Renal function and electrolytes are stable Renal ultrasound showed normal kidneys with no hydronephrosis. He continues on antibiotics as per ID Blood cultures are positive for Proteus mirabilis Planned for debridement left foot as per Podiatry for tomorrow Cardiology has recommended HBO therapy, no peripheral angiogram is planned. S/p EGD that showed gastritis He has been started on IV iron and Epogen S/P debridement by Dr Lim Hemoglobin has remained stable s/p PRBC transfusion He was seen in the medical floor, in no acute distress Prognosis remains guarded REVIEW OF SYSTEMS: GENERAL: Positive for left foot wound. NEUROLOGIC: Negative for any blurry vision, blind spots, double vision, facial asymmetry, dysphagia, dysarthria, hemiparesis, hemisensory deficits, vertigo, ataxia. HEENT: Negative for any head trauma, neck trauma, neck stiffness, photophobia, phonophobia, sinusitis, rhinitis. CARDIAC: Negative for any chest pain, dyspnea on exertion, paroxysmal nocturnal dyspnea, peripheral edema. PULMONARY: Negative for any shortness of breath, wheezing, COPD, or TB exposure. GASTROINTESTINAL: Negative for any abdominal pain, nausea, vomiting, bright red blood per rectum, melena. GENITOURINARY: Negative for any dysuria, hematuria, incontinence. INTEGUMENTARY: Negative for any rashes, cuts, insect bites. RHEUMATOLOGIC: Negative for any joint pains, photosensitive rashes, history of vasculitis or kidney problems. HEMATOLOGIC: Negative for any abnormal bruising, frequent infections or bleeding. Vital Signs (last 8hr) Date Time Temp Pulse Resp B/P (MAP) Pulse Ox O2 Delivery O2 Flow Rate FiO2 09/17/24 11:24 98.2 94 20 90/58 100 Room Air 09/17/24 08:08 97.9 90 18 124/68 98 Room Air 09/17/24 08:00 98 Room Air* 0 21 PHYSICAL EXAM: GENERAL: Alert and oriented x 3. No acute distress. Well-nourished. EYES: EOMI. Anicteric. HENT: Moist mucous membranes. No scleral icterus. No cervical lymphadenopathy. LUNGS: Clear to auscultation bilaterally. No accessory muscle use. CARDIOVASCULAR: Regular rate and rhythm. No murmur. No JVD. ABDOMEN: Soft, non-tender and non-distended. No palpable masses. EXTREMITIES: No edema. Non-tender. Right BKA, left TMA SKIN: No rashes or lesions. Warm. NEUROLOGIC: No focal neurological deficits. CN II-XII grossly intact, but not individually tested. PSYCHIATRIC: Cooperative. Appropriate mood and affect. Current Medications Medications (Trade) Dose Ordered Sig/Nathaly Route Start Time Stop Time Status Last Admin Dose Admin Atorvastatin Calcium (LIPItor 20MG) 20 mg HS PO 09/11/24 21:00 10/11/24 20:59 09/15/24 22:07 20 MG Betamethasone Valerate (Betamethasone Valerate) 1 APPLICATION TID TP 09/01/24 14:00 10/01/24 13:59 Cancel Clopidogrel Bisulfate (plaVIX 75MG) 75 mg DAILY PO 09/02/24 09:00 10/02/24 08:59 09/16/24 08:22 75 MG Epoetin Aram-epbx (Retacrit) 10,000 unit QTH SQ 09/13/24 15:00 09/13/24 18:40 DC Epoetin Aram-epbx (Retacrit) 10,000 unit QTH SQ 09/13/24 19:00 10/13/24 18:59 09/13/24 20:43 10,000 UNIT Ferrous Sulfate (Ferrous Sulfate) 325 mg DAILY PO 09/11/24 11:00 10/11/24 10:59 09/16/24 08:22 325 MG Insulin Human Regular (humuLIN R 100 UNIT/ML 3ML) INSULIN SLIDING SCAL... ACHS SQ 08/30/24 21:00 09/29/24 20:59 09/07/24 19:56 2 UNIT Iron Sucrose (VenoFER) 200 mg DAILY IV 09/13/24 09:00 09/15/24 09:00 DC 09/15/24 10:00 200 MG Lactobacillus Rhamnosus ([employer]) 1 each BID PO 09/12/24 21:00 10/12/24 20:59 09/16/24 08:21 1 EACH Linezolid 300 ml @ 150 mls/hr Q12H IV 09/10/24 12:30 09/20/24 12:29 09/16/24 00:27 150 MLS/HR Linezolid 300 ml @ 150 mls/hr Q12H IV 08/30/24 18:00 08/30/24 17:37 DC Linezolid 300 ml @ 150 mls/hr Q12H IV 08/30/24 20:00 09/09/24 19:59 DC 09/09/24 08:50 150 MLS/HR Magnesium Sulfate 50 ml @ 0 mls/hr PROTOCOL IV 09/15/24 14:00 10/15/24 13:59 09/15/24 22:07 25 MLS/HR Metformin HCl (glucoPHAGE) 1,000 mg BIDMEALS PO 09/07/24 17:00 09/11/24 14:00 DC 09/11/24 09:25 1,000 MG Nystatin (NystOP 15 GM POWDER) 1 APPLICATION TID TP 09/12/24 21:00 10/12/24 20:59 09/16/24 08:22 1 APPL Nystatin (NystOP 15 GM POWDER) 1 APPL BID TP 09/12/24 21:00 09/12/24 16:48 DC Pharmacy Profile Note (Pharmacy Communication) 1 each ONCE MISC 08/30/24 17:30 09/01/24 07:16 DC 08/30/24 17:56 1 EACH Piperacillin Sod/ Tazobactam Sod (Zosyn 3.375gm+NS 50ml) 3.375 gm Q12H IVPB 08/30/24 21:00 08/31/24 06:42 DC 08/30/24 23:06 3.375 GM Piperacillin Sod/ Tazobactam Sod (Zosyn 3.375gm+NS 50ml) 3.375 gm Q8H IVPB 09/10/24 15:00 09/20/24 14:59 09/16/24 06:04 3.375 GM Piperacillin Sod/ Tazobactam Sod (Zosyn 3.375gm+NS 50ml) 3.375 gm Q8H IVPB 08/31/24 07:00 09/09/24 20:59 DC 09/09/24 15:28 3.375 GM Sodium Chloride 1,000 ml @ 75 mls/hr [id number] IV 08/30/24 20:00 09/01/24 12:55 DC 08/31/24 22:29 75 MLS/HR Thiamine HCl (Vitamin B-1) 100 mg Q24H IVP 08/30/24 18:00 09/01/24 16:47 DC 08/31/24 18:33 100 MG Thiamine HCl (Vitamin B-1) 100 mg Q24H IVP 09/01/24 20:00 10/01/24 19:59 09/15/24 22:11 100 MG Vitamin B Complex/ Vit C/Folic Acid (Nephrovite Tablet) 1 cap DAILY PO 09/01/24 09:00 10/01/24 08:59 09/16/24 08:21 1 CAP LABORATORY: [ ] Hematology Labs: Test 09/17/24 05:30 09/16/24 06:11 Range/Units White Blood Count 5.2 4.8-10.8 K/uL Red Blood Count 3.06 #L 4.50-6.20 MIL/uL Hemoglobin 8.8 #L 14.0-18.0 g/dL Hematocrit 27.0 #L 42-54 % Mean Corpuscular Volume 88.2 79-99 fL Mean Corpuscular Hemoglobin 28.8 27.0-33.0 pg Mean Corpuscular Hemoglobin Concent 32.6 32.0-36.0 g/dL Red Cell Distribution Width 14.3 11.0-15.5 % Platelet Count 51 L 130-400 K/uL Mean Platelet Volume 10.8 H 7.5-10.5 fL Immature Granulocyte % (Auto) 0.6 0-1 % Neutrophils (%) (Auto) 75.0 40.0-77.0 % Lymphocytes (%) (Auto) 19.6 L 21.0-51.0 % Monocytes (%) (Auto) 2.1 L 3.0-13.0 % Eosinophils (%) (Auto) 2.3 0.0-8.0 % Basophils (%) (Auto) 0.4 0.0-5.0 % Neutrophils # (Auto) 3.9 1.8-7.7 K/uL Lymphocytes # (Auto) 1.0 1.0-4.8 K/uL Monocytes # (Auto) 0.1 0.1-1.0 K/uL Eosinophils # (Auto) 0.12 0.00-0.70 K/uL Basophils # (Auto) 0.02 0.00-0.20 K/uL Absolute Immature Granulocyte (auto 0.03 0-1 K/uL Nucleated Red Blood Cells 0.0 0.0-0.19 % Platelet Morphology Comment See comments Chemistry Labs: Test 09/17/24 11:09 09/17/24 05:30 Range/Units Whole Blood Glucose 102 70-110 MG/DL Sodium Level 135 L 136-145 mmol/L Potassium Level 4.2 3.5-5.1 mmol/L Chloride Level 105 101-111 mmol/L Carbon Dioxide Level 24 21-32 mmol/L Blood Urea Nitrogen 10 7-18 mg/dL Creatinine 1.0 0.5-1.3 mg/dL Glomerular Filtration Rate Calc 83 >90 mL/min Random Glucose 99 70-105 mg/dL Total Calcium 7.6 L 8.5-10.1 mg/dL Magnesium Level 1.90 1.80-2.40 mg/dL Total Bilirubin 0.6 # 0.2-1.0 mg/dL Aspartate Amino Transf (AST/SGOT) 15 10-37 U/L Alanine Aminotransferase (ALT/SGPT) 10 L 12-78 U/L Alkaline Phosphatase 68 50-136 U/L Total Protein 5.0 L 6.0-8.3 g/dL Albumin 1.6 L 3.5-5.0 g/dL DIAGNOSTICS / RADIOLOGY: PATIENT: CHADD MAGDALENO MR#: [id number] : 1960 SEX: M AGE: 64 LOCATION: [facility] ORDER 48 STATUS: ADM IN REPORT#: [id number] SERVICE 47 REASON: CONFIRM PICC LINE PLACEMENT ORDERING PHYSICIAN: BRAULIO BRIDGES MD PROCEDURE: CXR1VW - CHEST 1VW EXAM: CR Chest, 1 view CLINICAL HISTORY: Line placement. COMPARISON: CT chest dated 09/02/2024. FINDINGS: The right PICC line tip overlies the superior cavoatrial junction. The lungs show no infiltrates or other acute findings. No pleural effusion or pneumothorax. The cardiomediastinal silhouette is within normal limits. No acute osseous abnormality. IMPRESSION: The right PICC line tip overlies the superior cavoatrial junction. No acute cardiopulmonary process is evident. No adverse interval changes. /[place] DICTATED BY: GISEL CHACON Jr., MD DATE: 09/05/2424 ELECTRONICALLY SIGNED BY: GISEL CHACON Jr., MD DATE: 09/05/2424 PATIENT: CHADD MAGDALENO MR#: [id number] : 1960 SEX: M AGE: 64 LOCATION: [facility] ORDER 1020 STATUS: ADM IN REPORT#: [id number] SERVICE 1018 REASON: PAD; with LEFT lower extremity runoff ORDERING PHYSICIAN: KANIKA CROFT PROCEDURE: CTA ABDAOR - CT ANGIO ABD AORTA W RUNOFF EXAM: CTA bilateral Lower Extremities with Intravenous Contrast. CLINICAL HISTORY: Amputation of the right lower limb. TECHNIQUE: Axial CTA images of the bilateral Lower Extremities performed with intravenous contrast in the arterial phase with coronal and sagittal reformatted images generated and reviewed. 3-D reformatted images generated on an independent workstation and also reviewed. CONTRAST: Yes. COMPARISON: None provided. FINDINGS: Aorta: Atherosclerosis in the aorta with multiple calcified and non-calcified plaques at the origin of coeiliac axis, superior mesenteric artery and in the aortic neves without any flow limiting stenosis. VASCULATURE: Common Femoral Artery: Mild circumferential wall thickening with small calcified and non-calcified plaques on both sides without any flow limiting stenosis. Superficial Femoral Artery: Circumferential wall thickening with calcified plaques causing focal areas of luminal narrowing by approximately 20-30% on both sides. There is a focal area of luminal narrowing by approximately 60-70% in the lower one-thirds of the right superficial femoral artery. Deep Femoral Artery: No acute finding. No occlusion, rupture, aneurysm or dissection. Popliteal and Calf Arteries: There is circumferential calcifications in the bilateral popliteal and anterior and posterior tibial arteries with complete occlusion of the right popliteal artery and the right anterior and posterior tibial arteries. The left popliteal artery shows no significant luminal compromise. There is attenuated contrast opacification in the upper and mid segments of left anterior tibial artery with occlusion distally. Soft tissues: Unremarkable. Bones: Status post right below the knee amputation. No acute osseous abnormality. IMPRESSION: 1. Atherosclerosis in the aorta and in arteries of bilateral lower limb with complete occlusion of the right popliteal and proximal right anterior and posterior tibial arteries. Status post right below the knee amputation. 2. High-grade stenosis in the proximal and mid left anterior tibial artery with occlusion distally. 3. No abdominal aortic aneurysm or dissection. /[place] DICTATED BY: PATRICIA LAWSON MD DATE: 09/04/24647 ELECTRONICALLY SIGNED BY: PATRICIA LAWSON MD DATE: 09/04/24647 PATIENT: CHADD MAGDALENO MR#: [id number] : 1960 SEX: M AGE: 64 [facility] ORDER 1245 STATUS: ADM IN REPORT#: [id number] SERVICE 1227 REASON: cad,chf ORDERING PHYSICIAN: CHARIS OROSCO MD PROCEDURE: ECHO [facility] - ECHO 2-D COMPLETE APPROVED REPORT EXAM: Two-dimensional and M-mode echocardiogram with Doppler and color Doppler. Study Details: Diabts M , PVD INDICATION ICD: CAD , chf 2D Dimensions RVDd 3.4 cm LVEF(%) 70.2 (>50%) LVED Vol(simp.) 86.7 mL IVSd 0.9 (0.7-1.1cm) FS(%) 40 % LVES Vol(simp.) 38.5 mL LVDd 4.6 (3.8-5.6cm) LA (2D) 2.8 (1.6-4.0cm) LVEF(%, simp.) 56 % PWd 0.8 (0.7-1.1cm) Ao Root(2D) 3.3 (2.0-3.7cm) LA ESV INDEX (4CH) 21.00 mL/m2 IVSs 1.1 cm LVOT diam 2.0 (1.8-2.4cm) LA ESV INDEX (2CH) 15.31 mL/m2 LVDs 2.8 (2.5-4.0cm) LA ESV INDEX (BP) 15.38 mL/m2 PWs 1.2 cm Deformation Strain Apical 4 16.8 % Apical 2 13.2 % Apical 3 15.0 % Global Strain 15.0 % M-Mode Dimensions EPSS 1.8 cm LA (MM) 3.4 (1.6-4.0cm) Ao Root(MM) 3.4 (2.0-3.7cm) Aortic Valve AoV Vmax 0.9 m/s Ao Peak GR 3.2 mmHg LVOT Vmax 0.8 m/s AoV VTI 0.2 m Ao Mean GR 1.7 mmHg LVOT VTI 0.15 m CAITLIN (VMAX) 3.04 cm2 CAITLIN (VTI) 3.1 cm2 Mitral Valve MV E Vmax 61.6 cm/s DECEL Time 244 ms MV A Vmax 95.3 cm/s E/A ratio 0.6 TDI E/E' Medial 10.5 E/E' Lateral 6.4 Medial E' Peak V 5.86 cm/s Lateral E' Peak V 9.56 cm/s Pulmonary Valve PV Vmax 0.9 m/s PV VTI 0.18 m PV Mean GR 2.0 mmHg PV Peak GR 3.5 mmHg Left Ventricle The left ventricle is normal size. There is normal LV segmental wall motion. There is normal left ventricular wall thickness. LVEF is 50-55%. Stage I diastolic dysfunction. Right Ventricle The right ventricle is normal size. The right ventricular systolic function is normal. Atria The left atrium size is normal. The interatrial septum is intact with no evidence for an atrial septal defect. The right atrium size is normal. Aortic Valve Aortic valve NCC leaflets mild calcified. Trace aortic regurgitation. There is no aortic valvular stenosis. Mitral Valve The mitral valve is mildly thickened. Mild posterior mitral annular calcification present. There is no evidence of significant mitral regurgitation. There is no mitral valve stenosis. Tricuspid Valve The tricuspid valve is normal in structure. There is no tricuspid valve regurgitation noted. Pulmonic Valve Pulmonic valve is not well visualized. There is trace pulmonic valvular regurgitation. Great Vessels The aortic root is normal in size. The ascending aorta is normal in size. IVC is not well visualized. Pericardium not visualized Conclusion LVEF is 50-55%. Stage I diastolic dysfunction. There is normal LV segmental wall motion. Aortic valve NCC leaflets mild calcified. Trace aortic regurgitation. The mitral valve is mildly thickened. Mild posterior mitral annular calcification present. DICTATED BY: CHARIS OROSCO MD DATE: 09/01/24 1114 ELECTRONICALLY SIGNED BY: CHARIS OROSCO MD DATE: 09/01/24 1417 PATIENT: CHADD MAGDALENO MR#: [id number] : 1960 SEX: M AGE: 63 LOCATION: [facility] ORDER 37 STATUS: ADM IN REPORT#: [id number] SERVICE REASON: rule out any significant lung infiltrates, sepsis, foot infection ORDERING PHYSICIAN: BRAULIO BRIDGES MD PROCEDURE: CXR1VW - CHEST 1VW EXAM: CR Chest, 1 View. CLINICAL HISTORY: rule out any significant lung infiltrates, sepsis, foot infection COMPARISON: 05/02/2017 FINDINGS: LUNGS: There is no mass, infiltrate, or acute pulmonary abnormality. PLEURAL SPACES: No pleural effusion or pneumothorax. MEDIASTINUM: Cardiac size and mediastinal contours within normal limits. BONES: No aggressive appearing osseous lesion seen. IMPRESSION: No acute cardiopulmonary pathology is evident. /[place] DICTATED BY: PATRICIA LAWSON MD DATE: 08/30/242003 REASON: acute renal failure, uncontrolled DM II ORDERING PHYSICIAN: BRAULIO BRIDGES MD PROCEDURE: RENAL - US RENAL SONOGRAM EXAMINATION: Renal ultrasound. COMPARISON: None provided. HISTORY: acute renal failure, uncontrolled DM II FINDINGS: The right kidney measures 9.9 cm and is normal in echotexture. The left kidney measures 9.2 cm and is normal in echotexture. There are no focal renal lesions. There are no renal stones. There is no hydronephrosis. There is mild debris noted in the urinary bladder. Cystitis should be excluded. IMPRESSION: Normal kidneys. No hydronephrosis Mild debris noted in the urinary bladder. Cystitis should be excluded. /[place] DICTATED BY: PATRICIA LAWSON MD DATE: 08/30/242022 PATIENT: CHADD MAGDALENO MR#: [id number] : 1960 SEX: M AGE: 63 LOCATION: [facility] ORDER 23 STATUS: ADM IN REPORT#: [id number] SERVICE 16 REASON: non healing left foot wound with necrotic toes, assess for severe PAD ORDERING PHYSICIAN: BRAULIO BRIDGES MD PROCEDURE: ART B LE - US ARTERIAL BILAT LOW EXT DUPL EXAMINATION: DUPLEX ULTRASOUND EXAMINATION OF THE BILATERAL LOWER EXTREMITY ARTERIES. CLINICAL HISTORY: Non-healing wound in the left, to assess for peripheral arterial disease. COMPARISON: Lower extremity arterial doppler dated 12/29/2020. FINDINGS: Peak systolic velocities within the right lower arteries are as follows: Common femoral artery: 56 cm/s. Superficial femoral artery: 55 cm/s at proximal, 71 cm/s at mid, and 50 cm/s at distal segments. Popliteal artery: 28 cm/s at proximal and 37 cm/s at distal segments. The right lower limb arteries demonstrate biphasic waveforms in all arteries. The below knee arteries are not assessed, post amputation status. Peak systolic velocities within the left lower arteries are as follows: Common femoral artery: 66 cm/s. Superficial femoral artery: 71 cm/s at proximal, 72 cm/s at mid, and 72 cm/s at distal segments. Popliteal artery: 56 cm/s at proximal and 55 cm/s at distal segments. Posterior tibial artery: 30 cm/s. Anterior tibial artery: 47 cm/s. Dorsalis pedis artery: 67 cm/s. The left lower limb arteries demonstrate biphasic waveforms in all arteries other than posterior tibial, anterior tibial, and dorsalis pedis arteries which demonstrate monophasic waveforms. There is intimal wall thickening in both lower limb arteries. IMPRESSION: Mild intimal wall thickening in both the lower limb arteries. Both lower limb arteries demonstrate biphasic waveforms in all arteries other than left posterior tibial, anterior tibial, and dorsalis pedis arteries which demonstrate monophasic waveforms. No flow limiting lesions. /[place] DICTATED BY: PATRICIA LAWSON MD DATE: 08/30/242034 PATIENT: CHADD MAGDALENO MR#: [id number] : 1960 SEX: M AGE: 63 LOCATION: [facility] ORDER 1501 STATUS: ADM IN REPORT#: [id number] SERVICE 1500 REASON: SEPSIS ORDERING PHYSICIAN: IVON UNDERWOOD MD PROCEDURE: FT 3VW LT - FOOT COMP 3+VWS LT EXAM: CR Left foot, 3 View. CLINICAL HISTORY: SEPSIS COMPARISON: Comparison: Radiograph dated September 21, 2016 Findings: AP, oblique, lateral views of the left foot are submitted. Interval amputation of the great toe from the distal metatarsal. There is edema and subcutaneous emphysema within the soft tissues overlying the first metatarsal. Presumed interval amputation of the second toe from the mid to distal second proximal phalanx and of the third toe from the distal interphalangeal joint. Clinical correlation is advised. There is suggestion of bone loss and cortical irregularities seen within the mid diaphyses of the 3rd and 4th proximal phalanxes. Findings may reflect osteomyelitis. Recommend contrast-enhanced MRI of the midfoot/forefoot for further evaluation. IMPRESSION: 1. Status post interval amputation of great toe, second toe, and third toe with soft tissue edema and subcutaneous emphysema overlying the first metatarsal. 2. Possible osteomyelitis of 3rd and 4th proximal phalanxes. Recommend MRI of the midfoot/forefoot for further evaluation. /[place] DICTATED BY: GISEL CHACON Jr., MD DATE: 08/30/24 254 ASSESSMENT: Acute renal failure Acute rhabdomyolysis Anemia Hyponatremia Sepsis UTI Bacteremia Gas/wet gangrene of the left foot with extensively necrotic toes and underlying acute osteo-myelitis of multiple toe Poorly controlled type 2 diabetes mellitus PAD S/p right BKA Noncompliance Hyperlipidemia Positive fecal occult blood test s/p EGD Thrombocytopenia PLAN: Labs, diagnostic, radiologic exams reviewed and interpreted by myself and supervising physician. We have reviewed external records in detail 1.5 Fluid restriction is advised Require close monitoring of renal function and electrolytes Order CBC, CMP, and electrolytes in am Continue with antibiotics as per ID BiPAP as necessary, for respiratory distress Monitor blood pressure adjust medication doses as needed Avoid hypotensive episodes May use Dilaudid 0.5 mg IV every 6 hours as needed for severe pain Monitor blood sugars Strict intake, output, and daily weight should be monitored Please renally adjust medications Avoid nephrotoxic and nonsteroidal drugs Avoid contrast if possible Will continue to monitor renal function, anemia, electrolytes Treatment plan discussed with patient Questions were answered We have discussed with the other team physicians in detail about the care plan We will continue to monitor the patient closely ATTESTATION BY PHYSICIAN I have seen and examined the patient. I reviewed the documentation, medical decision making, and treatment plan as noted by the mid-level provider above. I agree with the findings and plan of care. EMMIE KRAMER MD, [facility] Sep 17, 2024 12:24
--- NOTE | 2024-09-17 13:29 | PN ---
[facility] PROGRESS NOTE Date of Service: Sep 17, 2024 Time of Service: 13:28 SUBJECTIVE: The patient is a 63-year-old male with a significant medical history of poorly controlled type 2 diabetes mellitus, peripheral arterial disease, and a prior right [id number]-[id number] amputation in 2020 due to right foot gangrene and necrotizing fasciitis. He presented to the emergency room on August 30, 2024, with worsening chronic wounds on the toes of his left foot, which had become increasingly necrotic and foul-smelling over the past several weeks. He also reported experiencing fever and chills. On admission, the patient was febrile with a maximum temperature of 100.0F, tachycardic with a heart rate of 102 bpm, and hypotensive with a blood pressure of 81/50 mmHg. Laboratory tests revealed leukocytosis with a WBC count of 21,400, anemia with a hemoglobin level of 10.3, and elevated creatinine at 2.0, indicating possible renal impairment. Blood cultures were positive for Gram- negative rods, later identified as Proteus mirabilis, and urine cultures showed growth of E. coli and Proteus mirabilis. The patient was admitted for management of wet gangrene of the left foot with suspected chronic osteomyelitis. He underwent a transmetatarsal amputation of the left foot on August 31, 2024, performed by Dr. Lim, which he tolerated well. Postoperatively, he was treated with broad-spectrum IV antibiotics, including Zosyn and linezolid, and received consultations from Podiatry, Infectious Disease, and Nephrology. Despite initial improvement, his white blood cell count remained elevated, and he required ongoing wound care and monitoring. Throughout his hospital stay, the patient remained stable, with vital signs improving and leukocytosis gradually resolving. He was alert, oriented, and reported adequate pain control. Case management coordinated his discharge to a long-term acute care facility ([facility]) for continued medical care, pending insurance approval. But apparently he got accepted to [facility]. Upon evaluation and chart review, it was noted that the staff nuclear medicine technologist has recommended a cardiology consultation to assess the patient's circulation, given his peripheral vascular disease. Dr. De Paz has suggested a transcutaneous oximetry (TCOM) and a possible angiogram to be performed on to further evaluate and manage his vascular status. The patient remains stable and continues to receive appropriate wound care and medical management. Patient was noted with positive stool occult blood, he has been having downtrending H and H. GI recommended EGD today, unfortunately his hgb is at 6.7 today. He denies sob, dizziness at this time. We will close monitor, for the meantime we will repeat H/H now. Type and screen patient. If hgb is at 7 or less than 7, we will transfuse 1 unit PRBC. We will inform GI team. 09/14 patient remains admitted to the medical floor, BP 111/69, afebrile, saturating 100% on 3 L nasal cannula, receive 1 unit of PRBC yesterday, hemoglobin 7.8, hematocrit 23.8, WBC 6.1, platelet count of 95, sodium 136, p otassium 3.8, BUN of 21, creatinine 1.1, magnesium 1.8. Currently the patient NPO, scheduled for EGD today, status post transfusion of 1 unit of PRBC yesterday, hemoglobin improved to 7.8, continue to follow CBC in a.m. transfuse as needed, continue to follow GI input and recommendation, continue to follow Cardiology input and recommendations. Podiatry input noted and appreciated, plan to take the patient to the operating room for debridement of number getting necrosis to the plantar flap of the left foot. At the time of my visit patient comfortably in bed, alert oriented x3, case discussed with the RN, no acute events overnight. The patient denied dizziness, no headache, no chest pain, shortness shortness for breath, no nausea, no vomiting. He feels hungry. 09/15 patient remains admitted to the medical floor, hemodynamically stable, BP 170/65, rest of the vital signs are unremarkable. Noted to have slight drop in hemoglobin and hematocrit, today 7.7/23.3. Magnesium level 1.7. Patient is status post transfusion of 1 unit of PRBC 09/13/2024, continue to monitor CBC and transfuse as needed. EGD done 09/14/2024, no acute findings. Continue to follow GI input and recommendations in terms of colonoscopy. Cardiology input noted and appreciated, recommended proceeding with colonoscopy to complete the GI workup.The TCOM analysis identified that the patient should heal from the TMA site with HBO therapy. As a result, we recommend that the patient be referred for HBO therapy. No further cardiac interventions, however if anemia and thrombocytopenia stabilizes and the patient fails to heal despite HBO therapy, can consider peripheral angiography as an outpatient. The meantime the patient to continue Plavix 75 mg p.o. daily and atorvastatin 20 mg p.o. q.h.s.. Continue the patient on broad-spectrum IV antibiotics. Podiatry contemplating debridement of necrosis plantar flap left foot. Patient with thrombocytopenia, we will request Hematology consultation. At the time of my visit the patient is awake, alert and oriented, following commands, case discussed with the RN, no acute events overnight. Patient getting good pain control with current medical management, getting IV antibiotics at the time of my visit, no family members at bedside. 09/16 remains admitted to the medical floor, hemodynamically stable, afebrile, saturating normal on room air. Drop in hemoglobin today again at 7.0, hematocrit 21.0. Patient is status post transfusion of 1 unit of PRBC 09/13/2024, drop again noted in hemoglobin today, we will transfuse additional unit of PRBC. EGD done 09/14/2024, no acute findings. Continue to follow GI input and recommendations in terms of colonoscopy. Cardiology input noted and appreciated, recommended proceeding with colonoscopy to complete the GI workup.The TCOM analysis identified that the patient should heal from the TMA site with HBO therapy. As a result, we recommend that the patient be referred for HBO therapy. No further cardiac interventions, however if anemia and thrombocytopenia stabilizes and the patient fails to heal despite HBO therapy, can consider peripheral angiography as an outpatient. The meantime the patient to continue Plavix 75 mg p.o. daily and atorvastatin 20 mg p.o. q.h.s.. Continue the patient on broad-spectrum IV antibiotics. Patient is status post Medial cuneiformectomy, partial second metatarsectomy, complex layered primary wound closure, highly modified 7 cm surgical incision, bone biopsy of the navicular by staff nuclear medicine technologist 09/15/2024, tolerated the procedure well, continue to follow podiatry input and recommendation. My visit patient comfortably in bed, alert oriented x3, no acute events overnight, no chest pain, shortness shortness for breath, no nausea, no vomiting, case discussed with the RN. 09/17 patient remains admitted to medical floor, hemodynamically stable, afebrile, saturating normal on room air, hemoglobin 8.8, hematocrit 27.0. CMP is unremarkable. Patient is status post transfusion of 1 unit of PRBC 09/13/2024, drop again noted in hemoglobin today, we will transfuse additional unit of PRBC. EGD done 09/14/2024, no acute findings. Continue to follow GI input and recommendations in terms of colonoscopy. Cardiology input noted and appreciated, recommended proceeding with colonoscopy to complete the GI workup.The TCOM analysis identified that the patient should heal from the [facility] site with HBO therapy. As a result, we recommend that the patient be referred for HBO therapy. No further cardiac interventions, however if anemia and thrombocytopenia stabilizes and the patient fails to heal despite HBO therapy, can consider peripheral angiography as an outpatient. The meantime the patient to continue Plavix 75 mg p.o. daily and atorvastatin 20 mg p.o. q.h.s.. Continue the patient on broad-spectrum IV antibiotics. Patient is status post Medial cuneiformectomy, partial second metatarsectomy, complex layered primary wound closure, highly modified 7 cm surgical incision, bone biopsy of the navicular by staff nuclear medicine technologist 09/15/2024, tolerated the procedure well, continue to follow podiatry input and recommendation. Infectious disease input noted and appreciated, Zyvox has been discontinued, continue Zosyn IV. Follow Hematology input and recommendation in terms of thrombocytopenia. At the Time of my visit patient comfortably in bed, alert oriented x3, case discussed with the RN, no acute events overnight, patient watching TV, denied chest pain, shortness shortness for breath, no nausea, no vomiting, he is getting good pain control with current medical management. REVIEW OF SYSTEMS CONSTITUTIONAL: fevers, chills, malaise, poor oral intake NEUROLOGICAL: Denies headache, amaurosis fugax, motor weakness, sensory deficit, vertigo/spinning sensation, gait abnormalities, or tremors. ENT: No hearing loss, otalgia, otorrhea, rhinitis, rhinorrhea, hoarseness, or sore throat. CARDIOVASCULAR: Denies any exertional angina, dyspnea on exertion, orthopnea, paroxysmal nocturnal dyspnea, palpitations, life-threatening arrhythmias, claudication. PULMONARY: Denies any shortness of breath, cough, phlegm/sputum, hemoptysis, pleuritic chest pain. SLEEP: Denies morning headaches, daytime somnolence or napping. Denies difficulty falling asleep, staying asleep, waking from sleep. Denies knowledge of snoring. GASTROINTESTINAL: Denies any type of dysphagia to either liquids or solids. Denies nausea, vomiting, pyrosis, early satiety, abdominal pain, diarrhea, constipation, or changes in stool consistency or caliber. Denies coffee-ground emesis, hematemesis, hematochezia, or melanotic stools. GENITOURINARY: Denies frequency, urgency, nocturia, hematuria or incontinence (Storage/Irritative symptoms.) Low urinary stream, straining to void, urinary intermittency or hesitancy, splitting of the voiding stream, terminal dribbling. ENDOCRINOLOGIC: Hx of type 2 Diabetes mellitus HEMATOLOGIC: Denies thrombophilia/previous clots, or coagulopathy/bleeding disorders. ONCOLOGIC: Denies personal history of malignancy. DERMATOLOGIC: foul smelling necrotic toes of the left foot with non healing wounds PSYCHIATRIC: Denies any suicidal or homicidal ideation. Denies hallucinations. PHYSICAL EXAM GENERAL APPEARANCE: The patient is awake, alert, and oriented, in no acute cardiopulmonary distress. NEUROLOGICAL: Cranial nerves II-XII grossly intact. Motor is 5/5 in bilateral upper and lower extremities proximal to distal. No sensory deficits. HEENT: Face is symmetric. Pupils are equal and reactive. Extraocular movements are intact. NECK: Supple. No JVD. No thyromegaly. No submental, submandibular, pre- /postauricular, occipital or supraclavicular lymphadenopathy. CHEST: Normal chest expansion. No Telemetry. LUNGS: Absence of any rales, rhonchi or any wheezing. CARDIOVASCULAR: Regular. S1 and S2 normal. No appreciable rubs, murmurs or gallops. ABDOMEN: Soft, nontender, and nondistended. There is no rebound, voluntary guarding, or rigidity. : Deferred. No Sandhu. EXTREMITIES: Left foot noted to have extremely foul-smelling wound with necrotic toes noted from 2nd two fifth digit, area of erythema and surrounding cellulitic changes noted Vital Signs (last 8hr) Date Time Temp Pulse Resp B/P (MAP) Pulse Ox O2 Delivery O2 Flow Rate FiO2 09/17/24 11:24 98.2 94 20 90/58 100 Room Air 09/17/24 08:08 97.9 90 18 124/68 98 Room Air 09/17/24 08:00 98 Room Air* 0 21 LABS: Laboratory: Test 7/21/25 11:09 09/17/24 05:30 09/16/24 06:11 Range/Units Whole Blood Glucose 102 70-110 MG/DL White Blood Count 5.2 4.8-10.8 K/uL Red Blood Count 3.06 #L 4.50-6.20 MIL/uL Hemoglobin 8.8 #L 14.0-18.0 g/dL Hematocrit 27.0 #L 42-54 % Mean Corpuscular Volume 88.2 79-99 fL Mean Corpuscular Hemoglobin 28.8 27.0-33.0 pg Mean Corpuscular Hemoglobin Concent 32.6 32.0-36.0 g/dL Red Cell Distribution Width 14.3 11.0-15.5 % Platelet Count 51 L 130-400 K/uL Mean Platelet Volume 10.8 H 7.5-10.5 fL Immature Granulocyte % (Auto) 0.6 0-1 % Neutrophils (%) (Auto) 75.0 40.0-77.0 % Lymphocytes (%) (Auto) 19.6 L 21.0-51.0 % Monocytes (%) (Auto) 2.1 L 3.0-13.0 % Eosinophils (%) (Auto) 2.3 0.0-8.0 % Basophils (%) (Auto) 0.4 0.0-5.0 % Neutrophils # (Auto) 3.9 1.8-7.7 K/uL Lymphocytes # (Auto) 1.0 1.0-4.8 K/uL Monocytes # (Auto) 0.1 0.1-1.0 K/uL Eosinophils # (Auto) 0.12 0.00-0.70 K/uL Basophils # (Auto) 0.02 0.00-0.20 K/uL Absolute Immature Granulocyte (auto 0.03 0-1 K/uL Nucleated Red Blood Cells 0.0 0.0-0.19 % Sodium Level 135 L 136-145 mmol/L Potassium Level 4.2 3.5-5.1 mmol/L Chloride Level 105 101-111 mmol/L Carbon Dioxide Level 24 21-32 mmol/L Blood Urea Nitrogen 10 7-18 mg/dL Creatinine 1.0 0.5-1.3 mg/dL Glomerular Filtration Rate Calc 83 >90 mL/min Random Glucose 99 70-105 mg/dL Total Calcium 7.6 L 8.5-10.1 mg/dL Magnesium Level 1.90 1.80-2.40 mg/dL Total Bilirubin 0.6 # 0.2-1.0 mg/dL Aspartate Amino Transf (AST/SGOT) 15 10-37 U/L Alanine Aminotransferase (ALT/SGPT) 10 L 12-78 U/L Alkaline Phosphatase 68 50-136 U/L Total Protein 5.0 L 6.0-8.3 g/dL Albumin 1.6 L 3.5-5.0 g/dL Platelet Morphology Comment See comments Current Medications Medications (Trade) Dose Ordered Sig/Nathaly Route PRN Reason Start Time Stop Time Status Last Admin Dose Admin Acetaminophen (TYLenol 325MG TAB) 650 mg Q6H PRN PO MILD PAIN (1-3) 08/30/24 17:30 09/29/24 17:29 Atorvastatin Calcium (LIPItor 20MG) 20 mg HS PO 09/11/24 21:00 10/11/24 20:59 09/16/24 21:09 20 MG Betamethasone Valerate (Betamethasone Valerate) 1 APPLICATION TID TP 09/01/24 14:00 10/01/24 13:59 Cancel Clopidogrel Bisulfate (plaVIX 75MG) 75 mg DAILY PO 09/02/24 09:00 10/02/24 08:59 09/16/24 08:22 75 MG Dextrose (D50w) 50 ml AD PRN IV HYPOGLYCEMIA PROTOCOL 08/30/24 18:00 09/29/24 17:59 Epoetin Aram-epbx (Retacrit) 10,000 unit QTH SQ 09/13/24 15:00 09/13/24 18:40 DC Epoetin Aram-epbx (Retacrit) 10,000 unit QTH SQ 09/13/24 19:00 10/13/24 18:59 09/13/24 20:43 10,000 UNIT Ferrous Sulfate (Ferrous Sulfate) 325 mg DAILY PO 09/11/24 11:00 10/11/24 10:59 09/17/24 08:55 325 MG Glucagon (Glucagon 1mg Kit) 1 mg AD PRN IM HYPOGLYCEMIA PROTOCOL 08/30/24 18:00 09/29/24 17:59 Hydromorphone HCl (DiLAUDid 0.5MG INJ) 0.2 mg Q6H PRN IVP SEVERE PAIN (7-10) 08/30/24 17:30 09/04/24 17:29 DC Insulin Human Regular (humuLIN R 100 UNIT/ML 3ML) INSULIN SLIDING SCAL... ACHS SQ 08/30/24 21:00 09/29/24 20:59 09/07/24 19:56 2 UNIT Iron Sucrose (VenoFER) 200 mg DAILY IV 09/13/24 09:00 09/15/24 09:00 DC 09/15/24 10:00 200 MG Lactobacillus Rhamnosus ([facility]) 1 each BID PO 09/12/24 21:00 10/12/24 20:59 09/17/24 08:55 1 EACH Linezolid 300 ml @ 150 mls/hr Q12H IV 09/10/24 12:30 09/17/24 13:20 DC 09/16/24 22:42 150 MLS/HR Linezolid 300 ml @ 150 mls/hr Q12H IV 08/30/24 18:00 08/30/24 17:37 DC Linezolid 300 ml @ 150 mls/hr Q12H IV 08/30/24 20:00 09/09/24 19:59 DC 09/09/24 08:50 150 MLS/HR Magnesium Sulfate 50 ml @ 0 mls/hr PROTOCOL IV 09/15/24 14:00 10/15/24 13:59 09/15/24 22:07 25 MLS/HR Magnesium Sulfate 50 ml @ 0 mls/hr PROTOCOL PRN IV MAGNESIUM PROTOCOL 09/15/24 13:30 09/15/24 13:44 DC Metformin HCl (glucoPHAGE) 1,000 mg BIDMEALS PO 09/07/24 17:00 09/11/24 14:00 DC 09/11/24 09:25 1,000 MG Nystatin (NystOP 15 GM POWDER) 1 APPLICATION TID TP 09/12/24 21:00 10/12/24 20:59 09/17/24 10:31 1 APPL Nystatin (NystOP 15 GM POWDER) 1 APPL BID TP 09/12/24 21:00 09/12/24 16:48 DC Ondansetron HCl (zoFRAN 4MG INJ) 4 mg Q6H PRN IVP NAUSEA/VOMITING 08/30/24 17:30 09/29/24 17:29 Pharmacy Profile Note (Pharmacy Communication) 1 each ONCE MISC 08/30/24 17:30 09/01/24 07:16 DC 08/30/24 17:56 1 EACH Piperacillin Sod/ Tazobactam Sod (Zosyn 3.375gm+NS 50ml) 3.375 gm Q12H IVPB 08/30/24 21:00 08/31/24 06:42 DC 08/30/24 23:06 3.375 GM Piperacillin Sod/ Tazobactam Sod (Zosyn 3.375gm+NS 50ml) 3.375 gm Q8H IVPB 09/10/24 15:00 09/20/24 14:59 09/17/24 05:21 3.375 GM Piperacillin Sod/ Tazobactam Sod (Zosyn 3.375gm+NS 50ml) 3.375 gm Q8H IVPB 08/31/24 07:00 09/09/24 20:59 DC 09/09/24 15:28 3.375 GM Potassium Chloride 100 ml @ 100 mls/hr AD PRN IV POTASSIUM PROTOCOL 09/06/24 08:00 10/06/24 07:59 Potassium Chloride (K-Dur/Klor-Con 20meq) 20 meq AD PRN PO POTASSIUM PROTOCOL 09/06/24 08:00 10/06/24 07:59 09/16/24 00:28 20 MEQ Potassium Chloride (KCl 10% Elixir 20meq/15ml) 20 meq AD PRN PO POTASSIUM PROTOCOL 09/06/24 08:00 10/06/24 07:59 Sodium Chloride 1,000 ml @ 75 mls/hr [id number] IV 08/30/24 20:00 09/01/24 12:55 DC 08/31/24 22:29 75 MLS/HR Thiamine HCl (Vitamin B-1) 100 mg Q24H IVP 08/30/24 18:00 09/01/24 16:47 DC 08/31/24 18:33 100 MG Thiamine HCl (Vitamin B-1) 100 mg Q24H IVP 09/01/24 20:00 10/01/24 19:59 09/16/24 21:09 100 MG Vitamin B Complex/ Vit C/Folic Acid (Nephrovite Tablet) 1 cap DAILY PO 09/01/24 09:00 10/01/24 08:59 09/17/24 08:55 1 CAP DIAGNOSTICS / RADIOLOGY: [ ] ASSESSMENT: Blood loss anemia, hgb at 6.7 Anemia, positive fecal occult blood Gas/wet gangrene of the left foot with extensively necrotic toes and underlying acute osteo-myelitis of multiple toes, POA Sepsis 2/2 complicated soft tissue infection of the left foot with underlying osteomyelitis)/Gram-negative bacteremia, POA Status post transmetatarsal amputation left foot 08/31/2024 status post Medial cuneiformectomy, partial second metatarsectomy, complex layered primary wound closure, highly modified 7 cm surgical incision, bone biopsy of the navicular by staff nuclear medicine technologist 09/15/2024 Gram-negative bacteremia secondary secondary to Proteus mirabilis POA Urinary tract infection, secondary to E coli and Proteus mirabilis, POA Left foot wound culture positive for Proteus mirabilis Poorly controlled type 2 diabetes mellitus, POA Acute renal failure, POA Acute rhabdomyolysis, POA Anemia, POA Significant leukocytosis secondary to underlying septicemia, POA Moderate hyponatremia, POA Hx of right BKA, POA PLAN: Patient is status post transfusion of 1 unit of PRBC 09/13/2024, drop again noted in hemoglobin today, we will transfuse additional unit of PRBC. EGD done 09/14/2024, no acute findings. Continue to follow GI input and recommendations in terms of colonoscopy. Cardiology input noted and appreciated, recommended proceeding with colonoscopy to complete the GI workup.The TCOM analysis identified that the patient should heal from the [facility] site with HBO therapy. As a result, we recommend that the patient be referred for HBO therapy. No further cardiac interventions, however if anemia and thrombocytopenia stabilizes and the patient fails to heal despite HBO therapy, can consider peripheral angiography as an outpatient. The meantime the patient to continue Plavix 75 mg p.o. daily and atorvastatin 20 mg p.o. q.h.s.. Continue the patient on broad-spectrum IV antibiotics. Patient is status post Medial cuneiformectomy, partial second metatarsectomy, complex layered primary wound closure, highly modified 7 cm surgical incision, bone biopsy of the navicular by staff nuclear medicine technologist 09/15/2024, tolerated the procedure well, continue to follow podiatry input and recommendation. Infectious disease input noted and appreciated, Zyvox has been discontinued, continue Zosyn IV. Follow Hematology input and recommendation in terms of thrombocytopenia. NEURO: Minimize central acting medications as possible. Fall Precautions. Well lighted room through the day and minimize interruptions through the night to prevent acute delirium. PULMONARY: Supplemental 02 as needed BiPAP as necessary, for respiratory distress Titrate Fio2 to keep Spo2 > or = 90% DuoNebs and CPT as needed IS hourly while awake for pulmonary hygiene prn Out of bed to chair as tolerated Maintain aspiration precautions at all times CARDIOVASCULAR: Follow hemodynamics. Vital signs per facility protocol GI & NUTRITION: Continue nutritional support Aspirations precautions Prokinetic agents and laxatives as needed KIDNEYS & ELECTROLYTES: Strict monitoring of intake and output Daily weights Avoid nephrotoxic agents Monitor electrolytes and replace as needed Goal urine output of 30mL/hr or 0.5mL/kg/hr Medications to be dosed according to renal function. Avoid contrast if possible ENDOCRINE: Maintain blood glucose between 100-180 at all times. Insulin sliding scale for blood glucose management Hypoglycemia and hyperglycemia protocol in place INFECTIOUS DISEASE: Trend temperature, WBC and procalcitonin level Follow cultures, deescalate antibiotics as soon as possible. Panculture if new onset fever HEMATOLOGY & COAGULATION: Monitor H&H. Keep Hgb > 7 Transfuse 1 unit of PRBC for Hgb < 7 Transfuse 1 pack of platelets of platelets < 20, 000 Watch for any signs and symptoms of bleeding SKIN: Pressure ulcer prevention per facility protocol Specialty mattress as needed ORTHO/REHAB Continue PT/OT PRN: MEDICATIONS Tylenol 650 mg po every 4 hrs for fever zofran 4 mg IV every 6 hrs for n/v Hydralazine 5 mg IV every 4 hrs systolic pressure > 160 bowel regiment: lactulose 20 gm PO BID PRN constipation Supportive measures: Continue GI and DVT prophylaxis Disposition: Pending improvement in clinical condition All questions answered time spent: > 35 min JERO RICHARDS MD Sep 17, 2024 13:29
--- NOTE | 2024-09-17 15:05 | PN ---
INFECTIOUS DISEASE PROGRESS NOTE Date of Service: Sep 17, 2024 SUBJECTIVE: Patient was seen at bedside today in room 412. Patient is status post revision of the left transmetatarsal amputation on the left, debridement of the second metatarsal and wound closure on 09/15/2024. Platelets level is 51 this morning, we will discontinue Zyvox and continue Zosyn IV. Patient's hemoglobin is 8.8 today after the 1 unit of PRBC transfused yesterday. Will start Protonix p.o. daily. No fever, temperature is 98.2. We continue to monitor patient. PHYSICAL EXAM EYES: Anicteric. Pupils equal and reactive. HENT: No oral thrush seen, moist Oral mucosa. NECK: Supple, no JVD or thyromegaly. LUNGS: Good air entry. No rales, no rhonchi. CARDIOVASCULAR: S1, S2 regular. No murmur heard. ABDOMEN: Soft, non tender, bowel sounds present, no organomegaly. CENTRAL NERVOUS SYSTEM: Awake, alert, oriented x 3. SKIN: No rashes, no swelling. LYMPHATICS: No peripheral lymphadenopathy MUSCULOSKELETAL: No joint swelling, erythema or tenderness. EXTREMITIES: Dry dressing to left lower extremity. Left TMA on 08/31/2024 and S/p revision of the left TMA, and wound closure on 09/15/2024. History of right BKA BACK: No deformity, no pressure ulcer. GENITOURINARY: No dysuria or hematuria. Vital Sign (Last 12 Hours) 09/17/24 09/17/24 09/17/24 09/17/24 03:50 08:00 08:08 11:24 Temp 97.9 97.9 98.2 Pulse 89 90 94 Resp 18 18 20 B/P (MAP) 110/67 124/68 90/58 Pulse Ox 94 98 98 100 O2 Delivery Room Air Room Air* Room Air Room Air O2 Flow Rate 0 FiO2 21 21 Intake & Output (last 24hrs) 09/16/24 09/16/24 09/17/24 14:59 22:59 06:59 Intake Total 700 ml 240 ml Balance 700 ml 240 ml LABS: Laboratory: Test 09/17/24 11:09 09/17/24 05:30 09/16/24 06:11 Range/Units Whole Blood Glucose 102 70-110 MG/DL White Blood Count 5.2 4.8-10.8 K/uL Red Blood Count 3.06 #L 4.50-6.20 MIL/uL Hemoglobin 8.8 #L 14.0-18.0 g/dL Hematocrit 27.0 #L 42-54 % Mean Corpuscular Volume 88.2 79-99 fL Mean Corpuscular Hemoglobin 28.8 27.0-33.0 pg Mean Corpuscular Hemoglobin Concent 32.6 32.0-36.0 g/dL Red Cell Distribution Width 14.3 11.0-15.5 % Platelet Count 51 L 130-400 K/uL Mean Platelet Volume 10.8 H 7.5-10.5 fL Immature Granulocyte % (Auto) 0.6 0-1 % Neutrophils (%) (Auto) 75.0 40.0-77.0 % Lymphocytes (%) (Auto) 19.6 L 21.0-51.0 % Monocytes (%) (Auto) 2.1 L 3.0-13.0 % Eosinophils (%) (Auto) 2.3 0.0-8.0 % Basophils (%) (Auto) 0.4 0.0-5.0 % Neutrophils # (Auto) 3.9 1.8-7.7 K/uL Lymphocytes # (Auto) 1.0 1.0-4.8 K/uL Monocytes # (Auto) 0.1 0.1-1.0 K/uL Eosinophils # (Auto) 0.12 0.00-0.70 K/uL Basophils # (Auto) 0.02 0.00-0.20 K/uL Absolute Immature Granulocyte (auto 0.03 0-1 K/uL Nucleated Red Blood Cells 0.0 0.0-0.19 % Sodium Level 135 L 136-145 mmol/L Potassium Level 4.2 3.5-5.1 mmol/L Chloride Level 105 101-111 mmol/L Carbon Dioxide Level 24 21-32 mmol/L Blood Urea Nitrogen 10 7-18 mg/dL Creatinine 1.0 0.5-1.3 mg/dL Glomerular Filtration Rate Calc 83 >90 mL/min Random Glucose 99 70-105 mg/dL Total Calcium 7.6 L 8.5-10.1 mg/dL Magnesium Level 1.90 1.80-2.40 mg/dL Total Bilirubin 0.6 # 0.2-1.0 mg/dL Aspartate Amino Transf (AST/SGOT) 15 10-37 U/L Alanine Aminotransferase (ALT/SGPT) 10 L 12-78 U/L Alkaline Phosphatase 68 50-136 U/L Total Protein 5.0 L 6.0-8.3 g/dL Albumin 1.6 L 3.5-5.0 g/dL Platelet Morphology Comment See comments ASSESSMENT: Left foot diabetic ulcer with possible osteomyelitis, s/p transmetatarsal amputation on 08/31/2024 and S/p revision of the left TMA, debridement and wound closure on 09/15/2024. Polymicrobial infection. Proteus mirabilis bacteremia. Urinary tract infection with ESBL, E coli and Proteus mirabilis. Leukocytosis, resolved. Anemia, requiring blood transfusion, s/p EGD with findings of chronic gastritis. Thrombocytopenia. Peripheral Artery disease. Diabetes mellitus Chronic kidney disease. PLAN: Discontinue linezolid IV. Continue Zosyn. Continue pain management. Continue antidiabetics. Start Protonix 40 mg p.o. for GI prophylaxis. Continue wound care. Will need 4 weeks of IV antibiotics and Case management working on SNF place ment. Peripheral angiogram was postponed until further notice. This case was reviewed and discussed with my supervising physician and the above assessment and plan was formulated and agreed upon. ATTESTATION BY PHYSICIAN I have seen and examined the patient. I reviewed the documentation, medical decision making, and treatment plan as noted by the mid-level provider above. I agree with the findings and plan of care. SUSANNE BETTENCOURT MD, [facility] Sep 17, 2024 15:05
[2024-09-17 16:47] VITALS: BP 124/67; PULSE 89; RESP 16; TEMP 98.1
[2024-09-17 20:00] VITALS: BP 137/78; PULSE 93; RESP 20; TEMP 98.1
--- NOTE | 2024-09-17 23:22 | PN ---
GASTROENTEROLOGY PROGRESS NOTE Date of Visit: Sep 17, 2024 Time of Visit: 23:21 Events / Notes: this is a 64-year-old male with past medical history of type 2 diabetes, PAD, right below the knee amputation in 2020 who presented due to right foot gangrene and necrotizing fasciitis. We were consulted due to anemia and positive FOBT. No history of EGD or colonoscopy. Review of Systems: CONSTITUTIONAL: No malaise or change in sensation of wellbeing. ENMT: No rhinorrhea, otorrhea, sinus pain, ear ache. CARDIOVASCULAR: No angina, palpitations, orthopnea or paroxysmal dyspnea. RESPIRATORY: No SOB. GASTROINTESTINAL: No abdominal pain, nausea, vomiting, diarrhea, hematemesis, melena or change in the patient's habitual bowel movements consistency/number. GENITOURINARY: No dysuria, hematuria or change in bladder continence. MUSCULOSKELETAL: No new muscle pain or decrease in muscular strength. No new joint swelling, redness or tenderness. SKIN: No new rash. Physical Exam: GEN: Awake, alert, oriented in person, time and place, and in no acute distress. HEENT: No sinus tenderness. Tympanic membranes were not examined. No rhinorrhea. Oral pharyngeal mucosa is pink, moist and within normal limits. Neck is supple with no cervical lymphadenopathy, thyromegaly or JVD. CHEST: Inspection, palpation and percussion of the chest were unremarkable. Lung auscultation revealed normal breath sounds bilaterally. CARDIAC: PMI is within normal limits. Heart sounds are regular. Normal S1, S2. No gallop or murmur. ABD: Soft, non-tender and not distended. No peritoneal signs on palpation. No organomegaly. Normal bowel sounds. EXT: No cyanosis or clubbing. No edema. SKIN: Intact. No rashes. JOINTS: No evidence of synovitis or acute arthritis. NEURO: Alert and oriented to name, place and person. Cranial nerve examination is unremarkable. No focal motor deficits. Normal speech. Gait is normal. Strength is normal. Vital Signs (last 8hr) Date Time Temp Pulse Resp B/P (MAP) Pulse Ox O2 Delivery O2 Flow Rate FiO2 09/17/24 20:00 98.1 93 20 137/78 98 Room Air 09/17/24 20:00 Room Air* 0 21 09/17/24 16:47 98.1 89 16 124/67 98 Room Air Laboratory: [ ] Laboratory: Test 09/17/24 20:00 09/17/24 05:30 09/16/24 06:11 Range/Units Whole Blood Glucose 87 70-110 MG/DL White Blood Count 5.2 4.8-10.8 K/uL Red Blood Count 3.06 #L 4.50-6.20 MIL/uL Hemoglobin 8.8 #L 14.0-18.0 g/dL Hematocrit 27.0 #L 42-54 % Mean Corpuscular Volume 88.2 79-99 fL Mean Corpuscular Hemoglobin 28.8 27.0-33.0 pg Mean Corpuscular Hemoglobin Concent 32.6 32.0-36.0 g/dL Red Cell Distribution Width 14.3 11.0-15.5 % Platelet Count 51 L 130-400 K/uL Mean Platelet Volume 10.8 H 7.5-10.5 fL Immature Granulocyte % (Auto) 0.6 0-1 % Neutrophils (%) (Auto) 75.0 40.0-77.0 % Lymphocytes (%) (Auto) 19.6 L 21.0-51.0 % Monocytes (%) (Auto) 2.1 L 3.0-13.0 % Eosinophils (%) (Auto) 2.3 0.0-8.0 % Basophils (%) (Auto) 0.4 0.0-5.0 % Neutrophils # (Auto) 3.9 1.8-7.7 K/uL Lymphocytes # (Auto) 1.0 1.0-4.8 K/uL Monocytes # (Auto) 0.1 0.1-1.0 K/uL Eosinophils # (Auto) 0.12 0.00-0.70 K/uL Basophils # (Auto) 0.02 0.00-0.20 K/uL Absolute Immature Granulocyte (auto 0.03 0-1 K/uL Nucleated Red Blood Cells 0.0 0.0-0.19 % Sodium Level 135 L 136-145 mmol/L Potassium Level 4.2 3.5-5.1 mmol/L Chloride Level 105 101-111 mmol/L Carbon Dioxide Level 24 21-32 mmol/L Blood Urea Nitrogen 10 7-18 mg/dL Creatinine 1.0 0.5-1.3 mg/dL Glomerular Filtration Rate Calc 83 >90 mL/min Random Glucose 99 70-105 mg/dL Total Calcium 7.6 L 8.5-10.1 mg/dL Magnesium Level 1.90 1.80-2.40 mg/dL Total Bilirubin 0.6 # 0.2-1.0 mg/dL Aspartate Amino Transf (AST/SGOT) 15 10-37 U/L Alanine Aminotransferase (ALT/SGPT) 10 L 12-78 U/L Alkaline Phosphatase 68 50-136 U/L Total Protein 5.0 L 6.0-8.3 g/dL Albumin 1.6 L 3.5-5.0 g/dL Platelet Morphology Comment See comments Current Medications Medications (Trade) Dose Ordered Sig/Nathaly Route PRN Reason Start Time Stop Time Status Last Admin Dose Admin Acetaminophen (TYLenol 325MG TAB) 650 mg Q6H PRN PO MILD PAIN (1-3) 08/30/24 17:30 09/29/24 17:29 Atorvastatin Calcium (LIPItor 20MG) 20 mg HS PO 09/11/24 21:00 10/11/24 20:59 09/17/24 20:13 20 MG Betamethasone Valerate (Betamethasone Valerate) 1 APPLICATION TID TP 09/01/24 14:00 10/01/24 13:59 Cancel Clopidogrel Bisulfate (plaVIX 75MG) 75 mg DAILY PO 09/02/24 09:00 10/02/24 08:59 09/16/24 08:22 75 MG Dextrose (D50w) 50 ml AD PRN IV HYPOGLYCEMIA PROTOCOL 08/30/24 18:00 09/29/24 17:59 Epoetin Aram-epbx (Retacrit) 10,000 unit QTH SQ 09/13/24 15:00 09/13/24 18:40 DC Epoetin Aram-epbx (Retacrit) 10,000 unit QTH SQ 09/13/24 19:00 10/13/24 18:59 09/13/24 20:43 10,000 UNIT Ferrous Sulfate (Ferrous Sulfate) 325 mg DAILY PO 09/11/24 11:00 10/11/24 10:59 09/17/24 08:55 325 MG Glucagon (Glucagon 1mg Kit) 1 mg AD PRN IM HYPOGLYCEMIA PROTOCOL 08/30/24 18:00 09/29/24 17:59 Hydromorphone HCl (DiLAUDid 0.5MG INJ) 0.2 mg Q6H PRN IVP SEVERE PAIN (7-10) 08/30/24 17:30 09/04/24 17:29 DC Insulin Human Regular (humuLIN R 100 UNIT/ML 3ML) INSULIN SLIDING SCAL... ACHS SQ 08/30/24 21:00 09/29/24 20:59 09/07/24 19:56 2 UNIT Iron Sucrose (VenoFER) 200 mg DAILY IV 09/13/24 09:00 09/15/24 09:00 DC 09/15/24 10:00 200 MG Lactobacillus Rhamnosus ([facility] 500px & Cogo) 1 each BID PO 09/12/24 21:00 10/12/24 20:59 09/17/24 20:13 1 EACH Linezolid 300 ml @ 150 mls/hr Q12H IV 09/10/24 12:30 09/17/24 13:20 DC 09/16/24 22:42 150 MLS/HR Linezolid 300 ml @ 150 mls/hr Q12H IV 08/30/24 18:00 08/30/24 17:37 DC Linezolid 300 ml @ 150 mls/hr Q12H IV 08/30/24 20:00 09/09/24 19:59 DC 09/09/24 08:50 150 MLS/HR Magnesium Sulfate 50 ml @ 0 mls/hr PROTOCOL IV 09/15/24 14:00 10/15/24 13:59 09/15/24 22:07 25 MLS/HR Magnesium Sulfate 50 ml @ 0 mls/hr PROTOCOL PRN IV MAGNESIUM PROTOCOL 09/15/24 13:30 09/15/24 13:44 DC Metformin HCl (glucoPHAGE) 1,000 mg BIDMEALS PO 09/07/24 17:00 09/11/24 14:00 DC 09/11/24 09:25 1,000 MG Nystatin (NystOP 15 GM POWDER) 1 APPLICATION TID TP 09/12/24 21:00 10/12/24 20:59 09/17/24 20:14 1 APPL Nystatin (NystOP 15 GM POWDER) 1 APPL BID TP 09/12/24 21:00 09/12/24 16:48 DC Ondansetron HCl (zoFRAN 4MG INJ) 4 mg Q6H PRN IVP NAUSEA/VOMITING 08/30/24 17:30 09/29/24 17:29 Pantoprazole Sodium (PROTonix 40MG TAB) 40 mg DAILY PO 09/18/24 09:00 10/18/24 08:59 Pharmacy Profile Note (Pharmacy Communication) 1 each ONCE MISC 08/30/24 17:30 09/01/24 07:16 DC 08/30/24 17:56 1 EACH Piperacillin Sod/ Tazobactam Sod (Zosyn 3.375gm+NS 50ml) 3.375 gm Q12H IVPB 08/30/24 21:00 08/31/24 06:42 DC 08/30/24 23:06 3.375 GM Piperacillin Sod/ Tazobactam Sod (Zosyn 3.375gm+NS 50ml) 3.375 gm Q8H IVPB 09/10/24 15:00 09/20/24 14:59 09/17/24 23:08 3.375 GM Piperacillin Sod/ Tazobactam Sod (Zosyn 3.375gm+NS 50ml) 3.375 gm Q8H IVPB 08/31/24 07:00 09/09/24 20:59 DC 09/09/24 15:28 3.375 GM Potassium Chloride 100 ml @ 100 mls/hr AD PRN IV POTASSIUM PROTOCOL 09/06/24 08:00 10/06/24 07:59 Potassium Chloride (K-Dur/Klor-Con 20meq) 20 meq AD PRN PO POTASSIUM PROTOCOL 09/06/24 08:00 10/06/24 07:59 09/16/24 00:28 20 MEQ Potassium Chloride (KCl 10% Elixir 20meq/15ml) 20 meq AD PRN PO POTASSIUM PROTOCOL 09/06/24 08:00 10/06/24 07:59 Sodium Chloride 1,000 ml @ 75 mls/hr [id number] IV 08/30/24 20:00 09/01/24 12:55 DC 08/31/24 22:29 75 MLS/HR Thiamine HCl (Vitamin B-1) 100 mg Q24H IVP 08/30/24 18:00 09/01/24 16:47 DC 08/31/24 18:33 100 MG Thiamine HCl (Vitamin B-1) 100 mg Q24H IVP 09/01/24 20:00 10/01/24 19:59 09/17/24 20:13 100 MG Vitamin B Complex/ Vit C/Folic Acid (Nephrovite Tablet) 1 cap DAILY PO 09/01/24 09:00 10/01/24 08:59 09/17/24 08:55 1 CAP Diagnostics / Radiology: [COPY/PASTE HERE IF NO REPORTS PLEASE DELETE SECTION] Assessment: Positive FOBT Acute blood loss anemia DM PAD Plan: MEKA FISHER [facility] Sep 17, 2024 23:22
[2024-09-18] VITALS: BP 125/72; PULSE 91; RESP 18; TEMP 97.6
[2024-09-18 04:00] VITALS: BP 124/77; PULSE 91; RESP 20; TEMP 97.5
[2024-09-18 06:26] LABS: NUCLEATED RED BLOOD CELLS 0.0 % (0.0-0.19); PLATELET COUNT (AUTO) 56.0 K/uL (130-400); RED BLOOD CELL COUNT(AUTO) 3.15 MIL/uL (4.50-6.20); RED CELL DISTRIBUTION WIDTH 14.5 % (11.0-15.5); WHITE BLOOD COUNT (AUTO) 5.1 K/uL (4.8-10.8)
[2024-09-18 06:39] LABS: CREATININE 1.0 mg/dL (0.5-1.3); GLOMERULAR FILTR. RATE CALC 83.0 mL/min (>90); GLUCOSE,RANDOM 71.0 mg/dL (70-105); SODIUM SERUM 135.0 mmol/L (136-145); UREA NITROGEN, BLOOD 12.0 mg/dL (7-18)
--- NOTE | 2024-09-18 07:23 | PN ---
SUBJECTIVE: The patient is a 64-year-old diabetic [place]izen [place] male who is followed up for a transmetatarsal amputation on the left status post revision with debridement of the medial cuneiform and the second metatarsal. The patient is currently afebrile, white count 5.1, H and H are 9.2 and 27.7. The patient is currently receiving IV Zosyn. The patient's cultures, Proteus mirabilis and Staph aureus. The patient is being followed by GI service. The patient has been followed by Infectious Disease. Zyvox has been discontinued. The patient is to continue with Zosyn. The patient was recently transfused 1 unit of packed red blood cells and awaiting GI recommendations as in terms of colonoscopy. REVIEW OF SYSTEMS: CONSTITUTIONAL: No chills, no fevers or night sweats. No nausea, no vomiting. No diarrhea. HEENT: No problems with eyes, ears, nose or throat. CARDIOVASCULAR: Having no current chest pain. RESPIRATORY: No shortness of breath. GENITOURINARY: No dysuria. GASTROINTESTINAL: No dysphagia. Undergoing GI workup for blood loss anemia. ENDOCRINE: Diabetes. PSYCHIATRIC: Denied any depression. OBJECTIVE: On examination today, incision site cooped to the left foot. ASSESSMENT: Status post transmetatarsal amputation and revisional transmetatarsal amputation of the left. PLAN: Continue with GI workup for suspected GI bleed. Continue with offloading measures. Continue with Betadine dressings. Continue with IV Zosyn. Follow the patient closely while in-house.. TID: [id number] RECEIPT: [id number]
[2024-09-18 08:00] VITALS: BP 133/71; PULSE 88; RESP 18; TEMP 97.6; O2SAT 100
--- NOTE | 2024-09-18 09:00 | NUR ---
HELD PLAVIX. PATIENT HAS LOW PLATELETS. PHYSICIAN AND INSTRUCTOR MODELING AWARE.
[2024-09-18 11:56] VITALS: BP 100/62; PULSE 92; RESP 18; TEMP 97.6
--- NOTE | 2024-09-18 12:57 | DS ---
Discharge Summary Hospital Course Summary: The patient is a 63-year-old male with a significant medical history of poorly controlled type 2 diabetes mellitus, peripheral arterial disease, and a prior right chyqj-mlq-yvsk amputation in 2020 due to right foot gangrene and necrotizing fasciitis. He presented to the emergency room on August 30, 2024, with worsening chronic wounds on the toes of his left foot, which had become increasingly necrotic and foul-smelling over the past several weeks. He also reported experiencing fever and chills. On admission, the patient was febrile with a maximum temperature of 100.0F, tachycardic with a heart rate of 102 bpm, and hypotensive with a blood pressure of 81/50 mmHg. Laboratory tests revealed leukocytosis with a WBC count of 21,400, anemia with a hemoglobin level of 10.3, and elevated creatinine at 2.0, indicating possible renal impairment. Blood cultures were positive for Gram- negative rods, later identified as Proteus mirabilis, and urine cultures showed growth of E. coli and Proteus mirabilis. The patient was admitted for management of wet gangrene of the left foot with suspected chronic osteomyelitis. He underwent a transmetatarsal amputation of the left foot on August 31, 2024, performed by Dr. Lim, which he tolerated well. Postoperatively, he was treated with broad-spectrum IV antibiotics, including Zosyn and linezolid, and received consultations from Podiatry, Infectious Disease, and Nephrology. Despite initial improvement, his white blood cell count remained elevated, and he required ongoing wound care and monitoring. Throughout his hospital stay, the patient remained stable, with vital signs improving and leukocytosis gradually resolving. He was alert, oriented, and reported adequate pain control. Case management coordinated his discharge to a long-term acute care facility ([facility]) for continued medical care, pending insurance approval. But apparently he got accepted to [facility] nursing [facility]. Upon evaluation and chart review, it was noted that the bindery machine operator has recommended a cardiology consultation to assess the patient's circulation, given his peripheral vascular disease. Dr. De Paz has suggested a transcutaneous oximetry (TCOM) and a possible angiogram to be performed on to further evaluate and manage his vascular status. The patient remains stable and continues to receive appropriate wound care and medical management. Patient was noted with positive stool occult blood, he has been having downtrending H and H. GI recommended EGD today, unfortunately his hgb is at 6.7 today. He denies sob, dizziness at this time. We will close monitor, for the meantime we will repeat H/H now. Type and screen patient. If hgb is at 7 or less than 7, we will transfuse 1 unit PRBC. We will inform GI team. 09/14 patient remains admitted to the medical floor, BP 111/69, afebrile, saturating 100% on 3 L nasal cannula, receive 1 unit of PRBC yesterday, hemoglobin 7.8, hematocrit 23.8, WBC 6.1, platelet count of 95, sodium 136, potassium 3.8, BUN of 21, creatinine 1.1, magnesium 1.8. Currently the patient NPO, scheduled for EGD today, status post transfusion of 1 unit of PRBC yesterday, hemoglobin improved to 7.8, continue to follow CBC in a.m. transfuse as needed, continue to follow GI input and recommendation, continue to follow Cardiology input and recommendations. Podiatry input noted and appreciated, plan to take the patient to the operating room for debridement of number getting necrosis to the plantar flap of the left foot. At the time of my visit patient comfortably in bed, alert oriented x3, case discussed with the RN, no acute events overnight. The patient denied dizziness, no headache, no chest pain, shortness shortness for breath, no nausea, no vomiting. He feels hungry. 09/15 patient remains admitted to the medical floor, hemodynamically stable, BP 170/65, rest of the vital signs are unremarkable. Noted to have slight drop in hemoglobin and hematocrit, today 7.7/23.3. Magnesium level 1.7. Patient is status post transfusion of 1 unit of PRBC 09/13/2024, continue to monitor CBC and transfuse as needed. EGD done 09/14/2024, no acute findings. Continue to follow GI input and recommendations in terms of colonoscopy. Cardiology input noted and appreciated, recommended proceeding with colonoscopy to complete the GI workup.The TCOM analysis identified that the patient should heal from the [facility] site with HBO therapy. As a result, we recommend that the patient be referred for HBO therapy. No further cardiac interventions, however if anemia and thrombocytopenia stabilizes and the patient fails to heal despite HBO therapy, can consider peripheral angiography as an outpatient. The meantime the patient to continue Plavix 75 mg p.o. daily and atorvastatin 20 mg p.o. q.h.s.. Continue the patient on broad-spectrum IV antibiotics. Podiatry contemplating debridement of necrosis plantar flap left foot. Patient with thrombocytopenia, we will request Hematology consultation. At the time of my visit the patient is awake, alert and oriented, following commands, case discussed with the RN, no acute events overnight. Patient getting good pain control with current medical management, getting IV antibiotics at the time of my visit, no family members at bedside. 09/16 remains admitted to the medical floor, hemodynamically stable, afebrile, saturating normal on room air. Drop in hemoglobin today again at 7.0, hematocrit 21.0. Patient is status post transfusion of 1 unit of PRBC 09/13/2024, drop again noted in hemoglobin today, we will transfuse additional unit of PRBC. EGD done 09/14/2024, no acute findings. Continue to follow GI input and recommendations in terms of colonoscopy. Cardiology input noted and appreciated, recommended proceeding with colonoscopy to complete the GI workup.The TCOM analysis identified that the patient should heal from the [facility] site with HBO therapy. As a result, we recommend that the patient be referred for HBO therapy. No further cardiac interventions, however if anemia and thrombocytopenia stabilizes and the patient fails to heal despite HBO therapy, can consider peripheral angiography as an outpatient. The meantime the patient to continue Plavix 75 mg p.o. daily and atorvastatin 20 mg p.o. q.h.s.. Continue the patient on broad-spectrum IV antibiotics. Patient is status post Medial cuneiformectomy, partial second metatarsectomy, complex layered primary wound closure, highly modified 7 cm surgical incision, bone biopsy of the navicular by bindery machine operator 09/15/2024, tolerated the procedure well, continue to follow podiatry input and recommendation. My visit patient comfortably in bed, alert oriented x3, no acute events overnight, no chest pain, shortness shortness for breath, no nausea, no vomiti ng, case discussed with the RN. 09/17 patient remains admitted to medical floor, hemodynamically stable, afebrile, saturating normal on room air, hemoglobin 8.8, hematocrit 27.0. CMP is unremarkable. Patient is status post transfusion of 1 unit of PRBC 09/13/2024, drop again noted in hemoglobin today, we will transfuse additional unit of PRBC. EGD done 09/14/2024, no acute findings. Continue to follow GI input and recommendations in terms of colonoscopy. Cardiology input noted and appreciated, recommended proceeding with colonoscopy to complete the GI workup.The TCOM analysis identified that the patient should heal from the TMA site with HBO therapy. As a result, we recommend that the patient be referred for HBO therapy. No further cardiac interventions, however if anemia and thrombocytopenia stabilizes and the patient fails to heal despite HBO therapy, can consider peripheral angiography as an outpatient. The meantime the patient to continue Plavix 75 mg p.o. daily and atorvastatin 20 mg p.o. q.h.s.. Continue the patient on broad-spectrum IV antibiotics. Patient is status post Medial cuneiformectomy, partial second metatarsectomy, complex layered primary wound closure, highly modified 7 cm surgical incision, bone biopsy of the navicular by bindery machine operator 09/15/2024, tolerated the procedure well, continue to follow podiatry input and recommendation. Infectious disease input noted and appreciated, Zyvox has been discontinued, continue Zosyn IV. Follow Hematology input and recommendation in terms of thrombocytopenia. At the Time of my visit patient comfortably in bed, alert oriented x3, case di scussed with the RN, no acute events overnight, patient watching TV, denied chest pain, shortness shortness for breath, no nausea, no vomiting, he is getting good pain control with current medical management. 09/18 patient remains hemodynamically stable, afebrile, saturating normal on room air, hemoglobin stable 9.2, hematocrit to 7.7, case discussed with case management, [facility]. Clipper Machine(s): Podiatry, GI, Cardiology, Infectious Disease, food preparer. Procedure(s): Status post transmetatarsal amputation left foot 08/31/2024 Assessment/Plan: Final diagnosis Blood loss anemia, hgb at 6.7 Anemia, positive fecal occult blood Gas/wet gangrene of the left foot with extensively necrotic toes and underlying acute osteo-myelitis of multiple toes, POA Sepsis 2/2 complicated soft tissue infection of the left foot with underlying osteomyelitis)/Gram-negative bacteremia, POA Status post transmetatarsal amputation left foot 08/31/2024 status post Medial cuneiformectomy, partial second metatarsectomy, complex layered primary wound closure, highly modified 7 cm surgical incision, bone biopsy of the navicular by bindery machine operator 09/15/2024 Gram-negative bacteremia secondary secondary to Proteus mirabilis POA Urinary tract infection, secondary to E coli and Proteus mirabilis, POA Left foot wound culture positive for Proteus mirabilis Poorly controlled type 2 diabetes mellitus, POA Acute renal failure, POA Acute rhabdomyolysis, POA Anemia, POA Significant leukocytosis secondary to underlying septicemia, POA Moderate hyponatremia, POA Hx of right BKA, POA Discharge Instructions: [facility], patient to return to the hospital if condition changes. Both the patient and the agreed and understood the information provided. Home Medications: Active Scripts Metformin HCl (Metformin HCl) 1,000 Mg Tablet, 1000 MG PO BIDMEALS, #60 TAB 0 Refills Prov:SERA BRIDGES MD 01/05/21 Time spent arranging discharge: 31-60 minutes JERO RICHARDS MD Sep 18, 2024 12:57
--- NOTE | 2024-09-18 14:22 | PN ---
INFECTIOUS DISEASE PROGRESS NOTE Date of Service: Sep 18, 2024 SUBJECTIVE: Patient was seen at bedside today in room 412. Patient is is afebrile this morning, temperature is 97.5. Patient is s/p transmetatarsal amputation on 08/31/2024 and S/p revision of the left TMA, debridement and wound closure on 09/15/2024. Patient has been referred to [facility] and has been approved. Patient is to continue on Zosyn for 4 more weeks as SNF. PHYSICAL EXAM EYES: Anicteric. Pupils equal and reactive. HENT: No oral thrush seen, moist Oral mucosa. NECK: Supple, no JVD or thyromegaly. LUNGS: Good air entry. No rales, no rhonchi. CARDIOVASCULAR: S1, S2 regular. No murmur heard. ABDOMEN: Soft, non tender, bowel sounds present, no organomegaly. CENTRAL NERVOUS SYSTEM: Awake, alert, oriented x 3. SKIN: No rashes, no swelling. LYMPHATICS: No peripheral lymphadenopathy MUSCULOSKELETAL: No joint swelling, erythema or tenderness. EXTREMITIES: Dry dressing to left lower extremity. Left TMA on 08/31/2024 and S/p revision of the left TMA, and wound closure on 09/15/2024. History of right BKA BACK: No deformity, no pressure ulcer. GENITOURINARY: No dysuria or hematuria. Vital Sign (Last 12 Hours) 09/18/24 09/18/24 09/18/24 04:00 08:00 11:56 Temp 97.5 97.5 97.5 Pulse 91 88 92 Resp 20 18 18 B/P (MAP) 124/77 133/71 100/62 Pulse Ox 99 100 97 O2 Delivery Room Air Room Air Room Air Intake & Output (last 24hrs) 09/17/24 09/17/24 09/18/24 15:00 23:00 07:00 Intake Total 320 ml 350 ml 50.0 ml Output Total 350 ml 350 ml Balance 320 ml 0 ml -300.0 ml LABS: Laboratory: Test 09/18/24 11:01 09/18/24 06:17 09/17/24 05:30 Range/Units Whole Blood Glucose 81 70-110 MG/DL White Blood Count 5.1 4.8-10.8 K/uL Red Blood Count 3.15 L 4.50-6.20 MIL/uL Hemoglobin 9.2 L 14.0-18.0 g/dL Hematocrit 27.7 L 42-54 % Mean Corpuscular Volume 87.9 79-99 fL Mean Corpuscular Hemoglobin 29.2 27.0-33.0 pg Mean Corpuscular Hemoglobin Concent 33.2 32.0-36.0 g/dL Red Cell Distribution Width 14.5 11.0-15.5 % Platelet Count 56 L 130-400 K/uL Mean Platelet Volume 10.7 H 7.5-10.5 fL Nucleated Red Blood Cells 0.0 0.0-0.19 % Sodium Level 135 L 136-145 mmol/L Potassium Level 4.3 3.5-5.1 mmol/L Chloride Level 105 101-111 mmol/L Carbon Dioxide Level 22 21-32 mmol/L Blood Urea Nitrogen 12 7-18 mg/dL Creatinine 1.0 0.5-1.3 mg/dL Glomerular Filtration Rate Calc 83 >90 mL/min Random Glucose 71 70-105 mg/dL Total Calcium 7.9 L 8.5-10.1 mg/dL Magnesium Level 1.80 1.80-2.40 mg/dL Immature Granulocyte % (Auto) 0.6 0-1 % Neutrophils (%) (Auto) 75.0 40.0-77.0 % Lymphocytes (%) (Auto) 19.6 L 21.0-51.0 % Monocytes (%) (Auto) 2.1 L 3.0-13.0 % Eosinophils (%) (Auto) 2.3 0.0-8.0 % Basophils (%) (Auto) 0.4 0.0-5.0 % Neutrophils # (Auto) 3.9 1.8-7.7 K/uL Lymphocytes # (Auto) 1.0 1.0-4.8 K/uL Monocytes # (Auto) 0.1 0.1-1.0 K/uL Eosinophils # (Auto) 0.12 0.00-0.70 K/uL Basophils # (Auto) 0.02 0.00-0.20 K/uL Absolute Immature Granulocyte (auto 0.03 0-1 K/uL Total Bilirubin 0.6 # 0.2-1.0 mg/dL Aspartate Amino Transf (AST/SGOT) 15 10-37 U/L Alanine Aminotransferase (ALT/SGPT) 10 L 12-78 U/L Alkaline Phosphatase 68 50-136 U/L Total Protein 5.0 L 6.0-8.3 g/dL Albumin 1.6 L 3.5-5.0 g/dL ASSESSMENT: Left foot diabetic ulcer with possible osteomyelitis, s/p transmetatarsal amputation on 08/31/2024 and S/p revision of the left TMA, debridement and wound closure on 09/15/2024. Polymicrobial infection. Proteus mirabilis bacteremia. Urinary tract infection with ESBL, E coli and Proteus mirabilis. Leukocytosis, resolved. Anemia, requiring blood transfusion, s/p EGD with findings of chronic gastritis. Thrombocytopenia. Peripheral Artery disease. Diabetes mellitus Chronic kidney disease. PLAN: Continue Zosyn x 4 weeks at SNF. Continue pain management. Continue antidiabetics. Continue GI prophylaxis. Continue wound care. Going nephrotoxic medications. This case was reviewed and discussed with my supervising physician and the above assessment and plan was formulated and agreed upon. ATTESTATION BY PHYSICIAN I have seen and examined the patient. I reviewed the documentation, medical dec ision making, and treatment plan as noted by the mid-level provider above. I agree with the findings and plan of care. SUSANNE BETTENCOURT MD, [facility] Sep 18, 2024 14:22
--- NOTE | 2024-09-18 14:25 | NUR ---
PATIENT DISCHARGED. PATIENT BEING TRANSFERRED TO [facility]. PATIENT WILL BE GOING WITH MIDLINE IN PLACE FOR [facility] ANTIBIOTIC THERAPY. CURRENTLY PATIENT IS ON ZOSYN AND WAITING FOR TRANSPORT.
--- NOTE | 2024-09-18 14:54 | PN ---
PROGRESS NOTE Date of Service: Sep 18, 2024 Time of Service: 14:32 HISTORY OF PRESENT ILLNESS: The patient is a 63-year-old male with a significant medical history of poorly controlled type 2 diabetes mellitus, peripheral arterial disease, and a prior right ldgel-yxa-cboo amputation in 2020( due to right foot gangrene and necrotizing fasciitis). He presented to the emergency room on August 30, 2024, with worsening chronic wounds on the toes of his left foot, which had become increasingly necrotic and foul-smelling over the past several weeks. He also reported experiencing fever and chills.He was diagnosed and admitted for the management of sepsis, Wet gangrene and osteomyelitis of left foot toes. He underwent transmetatarsal amputation left foot on 08.31.24. His blood cultures and left wound cultures grew Proteus kenna bilis ;' He was treated with IV Zosyn from 08.31.23 and will continue the treatment for 6 more weeks after discharge . He was started on Linezolid on 09.10.24 and following which he developed thrombocytopenia . Hematology was consulted for thrombocytopenia . 09.18.24: He is seen and evaluated at the bedside . He remains asymptomatic, No concerns voiced. He is s/p transmetatarsal amputation left foot on 08/31/2024. He will be discharged to SNF today for continuation of rehab and [place] [id number] today and Hb is 9.2. He was diagnosed with iron deficiency anemia and was treated with IV Venofor for 3 days earlier during hospitalization . Linezolid was discontinued yesterday after 7 days . Peripheral smear shows features suggestive of drug induced thrombocytopenia . Patient is in NAD. REVIEW OF SYSTEMS CONSTITUTIONAL: Denies fever, chills, or fatigue. HEAD/FACE: No signs of trauma. EENT: Denies eye pain, blurred vision, double vision, or light sensitivity. RESPIRATORY: Denies shortness of breath, cough, wheezing CARDIOVASCULAR: Denies chest pain, palpitation, syncope GASTROINTESTINAL/ABDOMINAL: Denies abdominal pain, constipation, diarrhea, nausea or vomiting INTEGUMENTARY: Denies rash or itchiness NEUROLOGICAL/PSYCH: Denies anxiety, depression, heat or cold intolerance. PHYSICAL EXAM EYES: Anicteric. Pupils equal and reactive. HENT: No oral thrush seen, moist Oral mucosa NECK: Supple, no JVD or thyromegaly. LUNGS: Good air entry. No rales, no rhonchi. CARDIOVASCULAR: S1, S2 regular. No murmur heard. ABDOMEN: Soft, non tender, bowel sounds present, no organomegaly CENTRAL NERVOUS SYSTEM: Awake, alert, oriented x 3. No focal deficits. SKIN: No rashes, no swelling. LYMPHATICS: No peripheral lymphadenopathy MUSCULOSKELETAL: No joint swelling, erythema or tenderness. EXTREMITIES: Rt BKA status, Left TMA status with wound dressings in place Vital Signs (last 8hr) Date Time Temp Pulse Resp B/P (MAP) Pulse Ox O2 Delivery O2 Flow Rate FiO2 09/18/24 11:56 97.5 92 18 100/62 97 Room Air 09/18/24 08:00 97.5 88 18 133/71 100 Room Air LABS: Laboratory: Test 09/18/24 11:01 09/18/24 06:17 09/17/24 05:30 Range/Units Whole Blood Glucose 81 70-110 MG/DL White Blood Count 5.1 4.8-10.8 K/uL Red Blood Count 3.15 L 4.50-6.20 MIL/uL Hemoglobin 9.2 L 14.0-18.0 g/dL Hematocrit 27.7 L 42-54 % Mean Corpuscular Volume 87.9 79-99 fL Mean Corpuscular Hemoglobin 29.2 27.0-33.0 pg Mean Corpuscular Hemoglobin Concent 33.2 32.0-36.0 g/dL Red Cell Distribution Width 14.5 11.0-15.5 % Platelet Count 56 L 130-400 K/uL Mean Platelet Volume 10.7 H 7.5-10.5 fL Nucleated Red Blood Cells 0.0 0.0-0.19 % Sodium Level 135 L 136-145 mmol/L Potassium Level 4.3 3.5-5.1 mmol/L Chloride Level 105 101-111 mmol/L Carbon Dioxide Level 22 21-32 mmol/L Blood Urea Nitrogen 12 7-18 mg/dL Creatinine 1.0 0.5-1.3 mg/dL Glomerular Filtration Rate Calc 83 >90 mL/min Random Glucose 71 70-105 mg/dL Total Calcium 7.9 L 8.5-10.1 mg/dL Magnesium Level 1.80 1.80-2.40 mg/dL Immature Granulocyte % (Auto) 0.6 0-1 % Neutrophils (%) (Auto) 75.0 40.0-77.0 % Lymphocytes (%) (Auto) 19.6 L 21.0-51.0 % Monocytes (%) (Auto) 2.1 L 3.0-13.0 % Eosinophils (%) (Auto) 2.3 0.0-8.0 % Basophils (%) (Auto) 0.4 0.0-5.0 % Neutrophils # (Auto) 3.9 1.8-7.7 K/uL Lymphocytes # (Auto) 1.0 1.0-4.8 K/uL Monocytes # (Auto) 0.1 0.1-1.0 K/uL Eosinophils # (Auto) 0.12 0.00-0.70 K/uL Basophils # (Auto) 0.02 0.00-0.20 K/uL Absolute Immature Granulocyte (auto 0.03 0-1 K/uL Total Bilirubin 0.6 # 0.2-1.0 mg/dL Aspartate Amino Transf (AST/SGOT) 15 10-37 U/L Alanine Aminotransferase (ALT/SGPT) 10 L 12-78 U/L Alkaline Phosphatase 68 50-136 U/L Total Protein 5.0 L 6.0-8.3 g/dL Albumin 1.6 L 3.5-5.0 g/dL ASSESSMENT: Acute thrombocytopenia- drug induced and secondary to Sepsis ,Not POA - expected Acute Blood loss anemia, hgb at 6.7 Anemia, positive fecal occult blood Gas/wet gangrene of the left foot with extensively necrotic toes and underlying acute osteo-myelitis of multiple toes, POA Sepsis 2/2 complicated soft tissue infection of the left foot with underlying osteomyelitis)/Gram-negative bacteremia, POA Status post transmetatarsal amputation left foot 08/31/2024 status post Medial cuneiformectomy, partial second metatarsectomy, complex layered primary wound closure, highly modified 7 cm surgical incision, bone biopsy of the navicular by sandblaster stone 09/15/2024 Gram-negative bacteremia secondary secondary to Proteus mirabilis POA Urinary tract infection, secondary to E coli and Proteus mirabilis, POA Left foot wound culture positive for Proteus mirabilis Poorly controlled type 2 diabetes mellitus, POA Acute renal failure, POA Acute rhabdomyolysis, POA Anemia, POA Significant leukocytosis secondary to underlying septicemia, POA Moderate hyponatremia, POA Hx of right BKA, POA PLAN: Peripheral smear : RBC: Spherocytes+, No schistocytes- no DVT , No TTP Platelets: Normal size and morphology of platelets Acute thrombocytopenia- drug induced and secondary to Sepsis ,Not POA - expected Sepsis , source- osteomyelitis Peripheral smear suggestive of drug induced thrombocytopenia possibly due to bone marrow depression Platelet count is expected to improve after discontinuation of offending drug and systemic infection resolves . We will be signing off. Thank you for consulting us . ATTESTATION BY PHYSICIAN I have seen and examined the patient. I reviewed the documentation, medical decision making, and treatment plan as noted by the resident provider above. I agree with the findings and plan of care. JENNIFER MALCOLM MD, MD Sep 18, 2024 14:54 ALAN COCHRAN MD Sep 18, 2024 16:44
--- NOTE | 2024-09-18 16:50 | PN ---
GASTROENTEROLOGY PROGRESS NOTE Date of Visit: Sep 18, 2024 Time of Visit: 16:49 Events / Notes: this is a 64-year-old male with past medical history of type 2 diabetes, PAD, right below the knee amputation in 2020 who presented due to right foot gangrene and necrotizing fasciitis. We were consulted due to anemia and positive FOBT. No history of EGD or colonoscopy. Review of Systems: CONSTITUTIONAL: No malaise or change in sensation of wellbeing. ENMT: No rhinorrhea, otorrhea, sinus pain, ear ache. CARDIOVASCULAR: No angina, palpitations, orthopnea or paroxysmal dyspnea. RESPIRATORY: No SOB. GASTROINTESTINAL: No abdominal pain, nausea, vomiting, diarrhea, hematemesis, melena or change in the patient's habitual bowel movements consistency/number. GENITOURINARY: No dysuria, hematuria or change in bladder continence. MUSCULOSKELETAL: No new muscle pain or decrease in muscular strength. No new joint swelling, redness or tenderness. SKIN: No new rash. Physical Exam: GEN: Awake, alert, oriented in person, time and place, and in no acute distress. HEENT: No sinus tenderness. Tympanic membranes were not examined. No rhinorrhea. Oral pharyngeal mucosa is pink, moist and within normal limits. Neck is supple with no cervical lymphadenopathy, thyromegaly or JVD. CHEST: Inspection, palpation and percussion of the chest were unremarkable. Lung auscultation revealed normal breath sounds bilaterally. CARDIAC: PMI is within normal limits. Heart sounds are regular. Normal S1, S2. No gallop or murmur. ABD: Soft, non-tender and not distended. No peritoneal signs on palpation. No organomegaly. Normal bowel sounds. EXT: No cyanosis or clubbing. No edema. SKIN: Intact. No rashes. JOINTS: No evidence of synovitis or acute arthritis. NEURO: Alert and oriented to name, place and person. Cranial nerve examination is unremarkable. No focal motor deficits. Normal speech. Gait is normal. Strength is normal. Vital Signs (last 8hr) Date Time Temp Pulse Resp B/P (MAP) Pulse Ox O2 Delivery O2 Flow Rate FiO2 09/18/24 11:56 97.5 92 18 100/62 97 Room Air Laboratory: [ ] Laboratory: Test 09/18/24 16:05 09/18/24 06:17 09/17/24 05:30 Range/Units Whole Blood Glucose 112 H 70-110 MG/DL White Blood Count 5.1 4.8-10.8 K/uL Red Blood Count 3.15 L 4.50-6.20 MIL/uL Hemoglobin 9.2 L 14.0-18.0 g/dL Hematocrit 27.7 L 42-54 % Mean Corpuscular Volume 87.9 79-99 fL Mean Corpuscular Hemoglobin 29.2 27.0-33.0 pg Mean Corpuscular Hemoglobin Concent 33.2 32.0-36.0 g/dL Red Cell Distribution Width 14.5 11.0-15.5 % Platelet Count 56 L 130-400 K/uL Mean Platelet Volume 10.7 H 7.5-10.5 fL Nucleated Red Blood Cells 0.0 0.0-0.19 % Sodium Level 135 L 136-145 mmol/L Potassium Level 4.3 3.5-5.1 mmol/L Chloride Level 105 101-111 mmol/L Carbon Dioxide Level 22 21-32 mmol/L Blood Urea Nitrogen 12 7-18 mg/dL Creatinine 1.0 0.5-1.3 mg/dL Glomerular Filtration Rate Calc 83 >90 mL/min Random Glucose 71 70-105 mg/dL Total Calcium 7.9 L 8.5-10.1 mg/dL Magnesium Level 1.80 1.80-2.40 mg/dL Immature Granulocyte % (Auto) 0.6 0-1 % Neutrophils (%) (Auto) 75.0 40.0-77.0 % Lymphocytes (%) (Auto) 19.6 L 21.0-51.0 % Monocytes (%) (Auto) 2.1 L 3.0-13.0 % Eosinophils (%) (Auto) 2.3 0.0-8.0 % Basophils (%) (Auto) 0.4 0.0-5.0 % Neutrophils # (Auto) 3.9 1.8-7.7 K/uL Lymphocytes # (Auto) 1.0 1.0-4.8 K/uL Monocytes # (Auto) 0.1 0.1-1.0 K/uL Eosinophils # (Auto) 0.12 0.00-0.70 K/uL Basophils # (Auto) 0.02 0.00-0.20 K/uL Absolute Immature Granulocyte (auto 0.03 0-1 K/uL Total Bilirubin 0.6 # 0.2-1.0 mg/dL Aspartate Amino Transf (AST/SGOT) 15 10-37 U/L Alanine Aminotransferase (ALT/SGPT) 10 L 12-78 U/L Alkaline Phosphatase 68 50-136 U/L Total Protein 5.0 L 6.0-8.3 g/dL Albumin 1.6 L 3.5-5.0 g/dL Current Medications Medications (Trade) Dose Ordered Sig/Nathaly Route PRN Reason Start Time Stop Time Status Last Admin Dose Admin Acetaminophen (TYLenol 325MG TAB) 650 mg Q6H PRN PO MILD PAIN (1-3) 08/30/24 17:30 09/29/24 17:29 Atorvastatin Calcium (LIPItor 20MG) 20 mg HS PO 09/11/24 21:00 10/11/24 20:59 09/17/24 20:13 20 MG Betamethasone Valerate (Betamethasone Valerate) 1 APPLICATION TID TP 09/01/24 14:00 10/01/24 13:59 Cancel Clopidogrel Bisulfate (plaVIX 75MG) 75 mg DAILY PO 09/02/24 09:00 10/02/24 08:59 09/16/24 08:22 75 MG Dextrose (D50w) 50 ml AD PRN IV HYPOGLYCEMIA PROTOCOL 08/30/24 18:00 09/29/24 17:59 Epoetin Aram-epbx (Retacrit) 10,000 unit QTH SQ 09/13/24 15:00 09/13/24 18:40 DC Epoetin Aram-epbx (Retacrit) 10,000 unit QTH SQ 09/13/24 19:00 10/13/24 18:59 09/13/24 20:43 10,000 UNIT Ferrous Sulfate (Ferrous Sulfate) 325 mg DAILY PO 09/11/24 11:00 10/11/24 10:59 09/18/24 08:20 325 MG Glucagon (Glucagon 1mg Kit) 1 mg AD PRN IM HYPOGLYCEMIA PROTOCOL 08/30/24 18:00 09/29/24 17:59 Hydromorphone HCl (DiLAUDid 0.5MG INJ) 0.2 mg Q6H PRN IVP SEVERE PAIN (7-10) 08/30/24 17:30 09/04/24 17:29 DC Insulin Human Regular (humuLIN R 100 UNIT/ML 3ML) INSULIN SLIDING SCAL... ACHS SQ 08/30/24 21:00 09/29/24 20:59 09/07/24 19:56 2 UNIT Iron Sucrose (VenoFER) 200 mg DAILY IV 09/13/24 09:00 09/15/24 09:00 DC 09/15/24 10:00 200 MG Lactobacillus Rhamnosus ([facility] Myagi) 1 each BID PO 09/12/24 21:00 10/12/24 20:59 09/18/24 08:21 1 EACH Linezolid 300 ml @ 150 mls/hr Q12H IV 09/10/24 12:30 09/17/24 13:20 DC 09/16/24 22:42 150 MLS/HR Linezolid 300 ml @ 150 mls/hr Q12H IV 08/30/24 18:00 08/30/24 17:37 DC Linezolid 300 ml @ 150 mls/hr Q12H IV 08/30/24 20:00 09/09/24 19:59 DC 09/09/24 08:50 150 MLS/HR Magnesium Sulfate 50 ml @ 0 mls/hr PROTOCOL IV 09/15/24 14:00 10/15/24 13:59 09/15/24 22:07 25 MLS/HR Magnesium Sulfate 50 ml @ 0 mls/hr PROTOCOL PRN IV MAGNESIUM PROTOCOL 09/15/24 13:30 09/15/24 13:44 DC Metformin HCl (glucoPHAGE) 1,000 mg BIDMEALS PO 09/07/24 17:00 09/11/24 14:00 DC 09/11/24 09:25 1,000 MG Nystatin (NystOP 15 GM POWDER) 1 APPLICATION TID TP 09/12/24 21:00 10/12/24 20:59 09/18/24 14:03 1 APPL Nystatin (NystOP 15 GM POWDER) 1 APPL BID TP 09/12/24 21:00 09/12/24 16:48 DC Ondansetron HCl (zoFRAN 4MG INJ) 4 mg Q6H PRN IVP NAUSEA/VOMITING 08/30/24 17:30 09/29/24 17:29 Pantoprazole Sodium (PROTonix 40MG TAB) 40 mg DAILY PO 09/18/24 09:00 10/18/24 08:59 09/18/24 08:20 40 MG Pharmacy Profile Note (Pharmacy Communication) 1 each ONCE MISC 08/30/24 17:30 09/01/24 07:16 DC 08/30/24 17:56 1 EACH Piperacillin Sod/ Tazobactam Sod (Zosyn 3.375gm+NS 50ml) 3.375 gm Q12H IVPB 08/30/24 21:00 08/31/24 06:42 DC 08/30/24 23:06 3.375 GM Piperacillin Sod/ Tazobactam Sod (Zosyn 3.375gm+NS 50ml) 3.375 gm Q8H IVPB 09/10/24 15:00 09/20/24 14:59 09/18/24 14:56 3.375 GM Piperacillin Sod/ Tazobactam Sod (Zosyn 3.375gm+NS 50ml) 3.375 gm Q8H IVPB 08/31/24 07:00 09/09/24 20:59 DC 09/09/24 15:28 3.375 GM Potassium Chloride 100 ml @ 100 mls/hr AD PRN IV POTASSIUM PROTOCOL 09/06/24 08:00 10/06/24 07:59 Potassium Chloride (K-Dur/Klor-Con 20meq) 20 meq AD PRN PO POTASSIUM PROTOCOL 09/06/24 08:00 10/06/24 07:59 09/16/24 00:28 20 MEQ Potassium Chloride (KCl 10% Elixir 20meq/15ml) 20 meq AD PRN PO POTASSIUM PROTOCOL 09/06/24 08:00 10/06/24 07:59 Sodium Chloride 1,000 ml @ 75 mls/hr [id number] IV 08/30/24 20:00 09/01/24 12:55 DC 08/31/24 22:29 75 MLS/HR Thiamine HCl (Vitamin B-1) 100 mg Q24H IVP 08/30/24 18:00 09/01/24 16:47 DC 08/31/24 18:33 100 MG Thiamine HCl (Vitamin B-1) 100 mg Q24H IVP 09/01/24 20:00 10/01/24 19:59 09/17/24 20:13 100 MG Vitamin B Complex/ Vit C/Folic Acid (Nephrovite Tablet) 1 cap DAILY PO 09/01/24 09:00 10/01/24 08:59 09/18/24 08:20 1 CAP Diagnostics / Radiology: [COPY/PASTE HERE IF NO REPORTS PLEASE DELETE SECTION] Assessment: Positive FOBT Acute blood loss anemia DM PAD 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
[2024-09-18 16:59] VITALS: BP 122/73; PULSE 91; RESP 18; TEMP 97.7
--- NOTE | 2024-09-18 17:28 | NUR ---
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 NO SIGNS OF DISTRESS NOTED.
--- NOTE | 2024-09-18 20:42 | PN ---
NEPHROLOGY NOTE SUBJECTIVE: This patient has multiple problems including renal failure, anemia in a patient who has underlying foot infection. The patient has low hemoglobin. The patient is planning for long term discharge to a [facility] facility. Other systemic review is unchanged and unremarkable. The patient has undergone left foot amputation before. PHYSICAL EXAMINATION: GENERAL: Pale, no other distress. VITAL SIGNS: Blood pressure is 122/73, pulse 91, respiratory rate is 18, afebrile. HEENT: Head is atraumatic, normocephalic. Pupils are round and reactive. Sclerae are anicteric. Conjunctivae not pale. Oral mucosa is not dry. NECK: Supple. No masses or bruits. Thyroid is palpable. Neck has no bruits. LUNGS: Shows equal thoracic percussion note being resonant in all areas. CARDIAC: Regular rhythm. No ____. LABORATORY DATA: Labs have been reviewed. Hemoglobin is low up to 9.2, hematocrit is 27. IMAGING STUDIES: Reviewed. Old records reviewed. PROBLEMS: Renal failure, anemia, foot infection and weakness, diabetes, peripheral vascular disease, and other comorbidities. PLAN: Plan will be to continue supportive care. Plan for discharge to long term. Will need a followup on renal function, urine output, and electrolyte. Nonsteroidal drugs and nephrotoxics should be avoided. Continue with other supportive measures. Condition is critical and guarded. Seen several times. I thank you for this patient. TID: [id number] RECEIPT: [id number]
== END 2024-09-18 17:30 | DRG 853 ==
LOC: EDH 14:39 → EDHIP 17:23 → 2DH 23:28 → 4AH 09-02 12:03 → 4BH 09-03 08:02
PROVIDERS: ADMIT Internal Medicine; ATTEND Internal Medicine
PROC: 0DB68ZX Excision of Stomach, Via Natural or Artificial Opening Endoscopic, Diagnostic (ICD-10-PCS; 2024-08-31)
PROC: 0Y6N0ZB Detachment at Left Foot, Partial 2nd Ray, Open Approach (ICD-10-PCS; 2024-08-31)
PROC: 0Y6N0ZC Detachment at Left Foot, Partial 3rd Ray, Open Approach (ICD-10-PCS; 2024-08-31)
PROC: 0Y6N0ZD Detachment at Left Foot, Partial 4th Ray, Open Approach (ICD-10-PCS; 2024-08-31)
PROC: 0Y6N0ZF Detachment at Left Foot, Partial 5th Ray, Open Approach (ICD-10-PCS; 2024-08-31)
PROC: 0Y6N0Z9 Detachment at Left Foot, Partial 1st Ray, Open Approach (ICD-10-PCS; principal; 2024-08-31 08:00)
PROC: 0QBP0ZZ Excision of Left Metatarsal, Open Approach (ICD-10-PCS; 2024-09-15)
PROC: 0QBM0ZX Excision of Left Tarsal, Open Approach, Diagnostic (ICD-10-PCS; 2024-09-15)
PROC: 30233N1 Transfusion of Nonautologous Red Blood Cells into Peripheral Vein, Percutaneous Approach (ICD-10-PCS; 2024-09-16)
DX: A41.50 Gram-negative sepsis, unspecified (principal); A48.0 Gas gangrene; E87.1 Hypo-osmolality and hyponatremia; E46 Unspecified protein-calorie malnutrition; N17.9 Acute kidney failure, unspecified; M62.82 Rhabdomyolysis; E11.52 Type 2 diabetes mellitus with diabetic peripheral angiopathy with gangrene; N39.0 Urinary tract infection, site not specified; Z16.12 Extended spectrum beta lactamase (ESBL) resistance; M86.172 Other acute osteomyelitis, left ankle and foot; L02.612 Cutaneous abscess of left foot; I42.9 Cardiomyopathy, unspecified; I13.0 Hypertensive heart and chronic kidney disease with heart failure and stage 1 through stage 4 chronic kidney disease, or unspecified chronic kidney disease; D62 Acute posthemorrhagic anemia; N18.30 Chronic kidney disease, stage 3 unspecified; L60.0 Ingrowing nail; I70.0 Atherosclerosis of aorta; K59.00 Constipation, unspecified; E83.42 Hypomagnesemia; I34.81 Nonrheumatic mitral (valve) annulus calcification; I25.10 Atherosclerotic heart disease of native coronary artery without angina pectoris; G47.00 Insomnia, unspecified; E78.5 Hyperlipidemia, unspecified; E11.65 Type 2 diabetes mellitus with hyperglycemia; E11.622 Type 2 diabetes mellitus with other skin ulcer; D69.6 Thrombocytopenia, unspecified; D63.1 Anemia in chronic kidney disease; E11.22 Type 2 diabetes mellitus with diabetic chronic kidney disease; B96.20 Unspecified Escherichia coli [E. coli] as the cause of diseases classified elsewhere; B96.4 Proteus (mirabilis) (morganii) as the cause of diseases classified elsewhere; E86.9 Volume depletion, unspecified; E11.621 Type 2 diabetes mellitus with foot ulcer; L97.529 Non-pressure chronic ulcer of other part of left foot with unspecified severity; E11.69 Type 2 diabetes mellitus with other specified complication; Z91.199 Patient's noncompliance with other medical treatment and regimen due to unspecified reason; Z68.25 Body mass index [BMI] 25.0-25.9, adult; Z89.511 Acquired absence of right leg below knee; Z87.39 Personal history of other diseases of the musculoskeletal system and connective tissue; Z83.3 Family history of diabetes mellitus; Z79.02 Long term (current) use of antithrombotics/antiplatelets; Z79.899 Other long term (current) drug therapy; K29.50 Unspecified chronic gastritis without bleeding
CPT/HCPCS: 36415; 36430; 36569; 43239; 71045; 73630; 75635; 76770; 80048; 80053; 80061; 80076; 80305; 81001; 82270; 82306; 82550; 82570; 82607; 82728; 82948; 83036; 83540; 83550; 83605; 83615; 83735; 84100; 84145; 84300; 84443; 84484; 84550; 85014; 85018; 85025; 85027; 85610; 85651; 85730; 86140; 86850; 86900; 86901; 86923; 87040; 87070; 87076; 87086; 87186; 88304; 88311; 93306; 93356; 93923; 93925; 96365; 99291; A4606; C1894; G0378; J1756; J1815; J2003; J2020; J2250; J2371; J2405; J2543; J2704; J3010; J3373; J3411; J3475; J3490; J7030; J7050; P9016; P9045; Q9967; A4215; A4221; A4222; A4223; A4620; A4649; A4663; A4930; A7002; C1751; J0665; Q5106